=== PATIENT | female | born 1950 | race Caucasian/White ===

== ENCOUNTER → 2019-11-11 | Outpatient (CLI) | payer MEDICARE, SELFPAY | PROVIDERS: Family Provider Electrodiagnostic Medicine; Visit Provider Electrodiagnostic Medicine | DX: G47.33 Obstructive sleep apnea (adult) (pediatric) (principal) ==

== ENCOUNTER 2019-11-14 10:22 | Outpatient (RCR) | payer MEDICARE, SELFPAY | END 2019-11-15 00:01 | LOC: ONCMED 10:22 | PROVIDERS: Family Provider Electrodiagnostic Medicine; Visit Provider Nurse Practitioner Family | DX: C90.00 Multiple myeloma not having achieved remission (principal); F41.8 Other specified anxiety disorders; I10 Essential (primary) hypertension; M48.02 Spinal stenosis, cervical region; M48.061 Spinal stenosis, lumbar region without neurogenic claudication; M85.80 Other specified disorders of bone density and structure, unspecified site; Z79.01 Long term (current) use of anticoagulants; Z79.899 Other long term (current) drug therapy; Z92.3 Personal history of irradiation; Z86.711 Personal history of pulmonary embolism | CPT/HCPCS: 36415; 70450; 70490; 80053; 82306; 83883 ×2; 84155; 84165; 84443; 85025; 85651; 99214 ==

== ENCOUNTER 2019-11-30 09:00 | Outpatient (RCR) | payer MEDICARE, SELFPAY | END 2019-12-16 23:59 | disposition home or self-care (01) | LOC: WOUND 09:00 | PROVIDERS: Family Provider Electrodiagnostic Medicine; PCP Electrodiagnostic Medicine; Visit Provider Nurse Practitioner Family | DX: L59.8 Other specified disorders of the skin and subcutaneous tissue related to radiation (principal); Y84.2 Radiological procedure and radiotherapy as the cause of abnormal reaction of the patient, or of later complication, without mention of misadventure at the time of the procedure; I96 Gangrene, not elsewhere classified | CPT/HCPCS: 11042; 99214; G0463 ==

== ENCOUNTER 2019-12-05 06:14 | Outpatient (RCR) | payer MEDICARE, SELFPAY ==
[2019-11-21 09:07] LABS: Basophils # 0.2 10^3/uL (0.0-0.1); Basophils % 5.5 %; Eosinophils # 0.2 10^3/uL (0.0-0.8); Eosinophils % 4.7 %; Hematocrit 32.8 % (37.0-47.0); Hemoglobin 10.2 g/dL (11.5-15.3); Lymphocytes # 1.4 10^3/uL (0.8-4.8); Lymphocytes % 39.4 %; Mean Corpuscular HGB Conc 31.1 g/dL (30.0-36.0); Mean Corpuscular Hemoglobin 26.3 pg (28.0-34.0); Mean Corpuscular Volume 84.5 fL (81-99); Mean Platelet Volume 12.5 fL (7.4-10.4); Monocytes # 0.5 10^3/uL (0.2-0.9); Monocytes % 12.9 %; Neutrophils # 1.4 10^3/uL (1.8-7.7); Neutrophils % 37.2 %; Nucleated Red Blood Cells % 0 %; Platelet Count 286 10^3/cmm (130-400); Red Blood Count 3.88 10^6/uL (4.1-5.3); White Blood Count 3.6 10^3/uL (4.0-10.0)
[2019-11-21 09:30] LABS: Alanine Aminotransferase 12 U/L (0-33); Albumin Level 4.2 g/dL (3.5-5.2); Alkaline Phosphatase 104 IU/L (35-105); Anion Gap 14.4 (5-19); Aspartate Amino Transferase 17 U/L (0-32); Blood Urea Nitrogen 12 mg/dL (8-23); Calcium 9.1 mg/Dl (8.8-10.2); Carbon Dioxide 26 mmol/L (22-29); Chloride 104 mmol/L (98-107); Ferritin 16 ng/mL (15-150); Globulin 1.5 g/dL (1.3-4.6); Glomerular Filtration Rate 62.3 mL/min (90-130); Glucose 97 mg/dL (74-106); Iron 53 ug/dL (37-145); Lactate Dehydrogenase 83 U/L (135-214); Percent Saturation 17.2 % (20-50); Potassium 3.4 mmol/L (3.5-5.1); Sodium 141 mmol/L (136-145); Total Bilirubin 0.3 mg/dL (0.15-1.2); Total Iron Binding Capacity 308 mg/dL; Total Protein 5.7 g/dL (6.6-8.7); Unsaturated Iron Binding 255 ug/dL (112-347)
[2019-11-21 11:10] LABS: Immunoglobulin IGA 143 mg/dL (70-400); Immunoglobulin IGG 759 mg/dL (700-1600); Immunoglobulin IGM 30 mg/dL (40-230)
[2019-11-23 13:17] LABS: ABNORMAL PROTEIN BAND 1 0.2 g/dL (NONE DETECTED); ALBUMIN 3.1 g/dL (3.8-4.8); ALPHA 1 GLOBULIN 0.3 g/dL (0.2-0.3); ALPHA 2 GLOBULIN 0.7 g/dL (0.5-0.9); BETA 1 GLOBULIN 0.4 g/dL (0.4-0.6); BETA 2 GLOBULIN 0.3 g/dL (0.2-0.5); GAMMA GLOBULIN 0.7 g/dL (0.8-1.7); KAPPA LIGHT CHAIN, FREE, SERUM 49.4 mg/L (3.3-19.4); KAPPA/LAMBDA LIGHT CHAINS FREE 0.45 (0.26-1.65); LAMBDA LIGHT CHAIN, FREE, SERU 110.4 mg/L (5.7-26.3); PROTEIN, TOTAL 5.4 g/dL (6.1-8.1)
--- NOTE | 2019-11-28 10:50 | ONC FU_ITS ---
Dr. Rodriguez Patient Follow-Up Note Patient: Valentin Clark Unit #: [id number]: 1950 Dicatated By: Ruiz Rodriguez M.D.Date of Visit:Nov 28, 2019 Onc Med Follow-up/Prog Note Chief Complaint: Mulitple myeloma. 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 In March 2018 she had bumped her head at work and in the process of that she became aware of a small lump, though it was actually in a slightly different area. She then noticed that the lump was getting larger. Evaluation with head MRI on 06/07/2018 showed evidence of a right parietal occipital extra-axial neoplasm, felt to be most likely meningeal in origin. It was noted to exert mass effect on the right parietal and occipital lobes, but without associated midline shift or white matter parenchymal edema. The lesion was noted to invade through the calvarium and into the subcutaneous parietal occipital scalp soft tissues. The mass measured 5.7 x 3.5 x 6 cm. 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 The area of occlusion was noted to extend over approximately 4.3 cm. She was seen by Dr. Landry and subsequently referred for neurosurgery evaluation at [facility]. Initially they had considered possible surgical resection. Her further evaluation there apparently included laboratory findings which were suspicious for myeloma, and it was recommended that she have treatment with radiation. She was seen here for further management on 07/14/2018. She then returned to Dr. Landry, and on 07/20/2018 she underwent open biopsy/resection of the extracranial extent of the mass. 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 Her further evaluation included protein electrophoresis which showed an IgG lambda monoclonal protein in the serum quantitating at 0.48 g/dL. The serum free light chain assay showed elevated lambda light chain at 374.65 mg/L with decreased kappa/lambda ratio at 0.06. The 24-hour urine protein electrophoresis showed no monoclonal protein. There were no other areas of lytic bone involvement noted on her skeletal survey. Bone marrow aspiration/biopsy on 07/30/2018 showed a monotypic plasma cell population, but it comprised only 2% of the total cellularity. A FISH panel for myeloma was unrevealing, and the standard chromosome analysis was normal. She was referred to Dr. Kaur, and she began radiation to the lesion on 07/30/2018. She completed treatment on 09/02/2018 to a total dose of 5,000 cGy. She had evaluation with CT pulmonary angiogram on 09/14/2018. It showed moderate bilateral pulmonary embolic burden. She began on anticoagulation with apixaban. During her subsequent follow-up she continued to have an open wound at the site of the plasmacytoma in the parietal-occipital scalp region. As of her follow-up visit on 10/19/2018 her M protein was stable 0.37 g/dL. In the absence of any evidence of symptomatic myeloma, she had otherwise just continued on observation/expectant management. However, due to her persistent scalp wound she had a repeat brain MRI on 01/11/2019. It showed evidence of residual neoplastic process at the resection site. There was associated dural involvement but with improved signal characteristics and decreased enhancement compared to the study from September 2018. She was seen for a follow-up visit on 01/20/2019. In view of the MRI findings, she had further evaluation with PET/CT on 02/03/2019. It showed increase in size and expansile hypermetabolic lesion within the left ilium with extension of hypermetabolic tumor into the adjacent left iliac muscle. There was a new hypermetabolic lytic process within the right S1/S2 region. A large lytic mass within the posterior calvarium did not appear to have active hypermetabolism. Also noted, though, was a hypermetabolic lesion within the medullary canal of the distal left femoral diametaphysis and an additional hypermetabolic focus in the anterior cortex of the distal right femur concerning for additional areas of myeloma. In the setting of obvious progression of her myeloma, she was recommended to begin a trial of therapy with Velcade/Revlimid/dexamethasone. Her other medical illnesses include hypertension and degenerative arthritis/degenerative disease of the spine. She has associated cervical and lumbar spinal stenosis. She has a history of endometriosis, and she has anxiety/depression. She is a nonsmoker. INTERIM HISTORY: She began cycle 1 of VRd on 02/23/2019. At that time she also received an infusion of IV Zometa for the lytic bone involvement. At that time, there was a slight increase in her baseline creatinine level to 1.2 mg/dL, and did opt to reduce her Revlimid dosage because of that. She experienced significant toxicity following her day 1 treatment, mainly having become listless and out of it over the next 4-5 days. She also lost her appetite. Her follow-up lab studies showed a drop in her calcium from baseline 10.3 mg/dL to 6.5 mg/dL with albumin 3.5 g/dL. With that finding, I did opt to hold her further Velcade, but she continued Revlimid and dexamethasone. As of 03/09/2019 she restarted treatment with Velcade at 1.3 mg/m??? weekly with Revlimid reduced to 15 mg daily on a 21/28 day schedule and the dexamethasone dosage reduced to 20 mg weekly. As of her day 15 visit, she was tolerating the treatment well. At that time she received the full dosage of Velcade, and she continued Revlimid 15 mg daily for 7 more days. She had subsequently developed diarrhea, and at her followup visit on 04/07/2019 her treatment was put on hold. She eventually continued with cycle 3 on 05/05/2019 with the Revlimid dosage further reduced to 10 mg daily on a 21/28 day schedule and with the Velcade and dexamethasone dosed weekly. Her repeat SPEP at that time showed residual M protein quantitating at 0.3 g/dL. The free light chain assay showed kappa light chain 100 mg/L, lambda light chain 122 mg/L, and kappa/lambda ratio 0.82. Her treatment was put on hold again at day 8 due to worsening neuropathy. She subsequently was able to continue the Revlimid and dexamethasone, but the Velcade remained on hold. Her repeat protein electrophoresis on 06/09/2019 showed stable M protein at 0.3 g/dL. The serum free light chain assay showed normal kappa/lambda ratio at 0.84. She was seen for a follow-up visit on 06/21/2019. At that point she appeared stable clinically. Her blood counts were adequate, and she continued with her 4th cycle of treatment. Her repeat protein electrophoresis on 07/13/2019 showed residual M protein quantitating at 0.2 g/dL. The free light chain assay showed elevated kappa light chain at 31.0 mg/L and elevated lambda light chain at 33.0 mg/L with normal kappa/lambda ratio at 0.94. Her 24-hour urine protein electrophoresis showed no detectable monoclonal protein. She was seen for a follow-up visit on 07/19/2019. At that point she complained of increased fatigue and excessive somnolence, and I did opt to put her treatment on hold. A subsequent restaging PET/CT showed no FDG avid sites of involvement. Her repeat head MRI on 08/10/2019 showed no evidence of recurrent or progressive disease. With those findings, I opted to transition her treatment to maintenance Revlimid at 5 mg daily, which she started following her visit on 08/17/2019. Her further laboratory studies on 09/22/2019 also showed a low B12 level at 189 pg/mL, and she subsequently started B12 replacement therapy. A recent sleep study showed moderate obstructive sleep apnea. She is scheduled to come in for a titration study. She is seen for a scheduled visit. She has been feeling a little better generally. Since she started the B12 injections she's not sleeping quite as much, though she still has her days . Her activity remains very limited. She just occasionally is able to do light work, and she usually pays for it the next day. ECOG score is 2. She says she never has appetite. She has lost some weight. She has not had fever or night sweats, but she occasionally does have chills. She has had no mouth sores. She does not complain of shortness of breath or cough. She has not had chest pain. She has started having fluttering in heart racing during the night again. She has no GI complaints. She has frequent urination with urgency and some incontinence. She is having some pain in her neck and in her lower back. She has arthritis in her hands. She does not complain of headache. She says her balance is terrible. Her numbness and tingling is going away, but recently she has been having some muscle cramping in her hands. Medications: Acetaminophen 1 Tablet (of 650 mg) Oral PRN, Biotin Plus Keratin 1 Tablet (of 70322 mcg) Oral daily, Bisacodyl 1 Tablet (of 5 mg) Tablet, enteric coated Oral PRN, Calcium Citrate + D 1 Capsule (of 600-800 mg - Units) Tablet Oral daily, Eliquis 1 Tablet (of 5 mg) Oral b.i.d., Essiac Tonic 1 Capsule Oral b.i.d., FLUoxetine HCl 1 Capsule (of 30 mg) Oral daily, Furosemide 1 Tablet (of 40 mg) Oral daily on Every Other Day, GoodSense Stimulant Laxative 2 Tablet (of 8.6-50 mg) Oral t.i.d. PRN, Loratadine 1 Tablet (of 10 mg) Oral daily PRN, LORazepam 1 Tablet (of 0.5 mg) Oral b.i.d., Pantoprazole Sodium 1 Tablet (of 40 mg) Tablet, enteric coated Oral b.i.d., Potassium Chloride ER 1 Tablet (of 20 meq) Tablet, controlled release Oral b.i.d., Zoe 1 patch(es) Patch Topical daily, Probiotic Acidophilus 2 Capsule Tablet Oral daily, Regranex 1 (0.01 %) Gel (jelly) Topical daily PRN, Revlimid 1 Tablet (of 5 mg) Capsule Oral daily, Sulfamethoxazole-Trimethoprim (800-160 mg) Tablet Oral Take as Directed, Ventolin HFA 1 (108 (90 base) mcg/act) Aerosol, solution Inhalation PRN, Vitamin B12 1 Tablet (of 2500 mg) Tablet, controlled release Oral daily, Vitamin D3 1 Tablet (of 2000 Units) Oral b.i.d. Allergies: BusPIRone HCl, Codeine and Related, Levaquin, and Morphine Derivatives. Review of Systems: Constitutional - Her energy is starting to potato picker, but she still has limited activity and she just occasionally does light work at home. Her appetite is not very good. She has lost weight. She had chills a couple weeks ago. No fever or night sweats. ECOG score is 2, ENMT - No sinus congestion/drainage. No mouth sores. No sore throat or difficulty swallowing, Hematologic/Lymphatic - No abnormal bruising or bleeding, Respiratory - No shortness of breath. No cough. No pleuritic pain or hemoptysis, Cardiovascular - No angina pain. She is having fluttering and heart racing at night that wakes her up, Gastrointestinal - No nausea or vomiting. No heartburn or acid reflux. She is managing her constipation well with stool softeners. No blood in the stool or black stools, Genitourinary (F) - No dysuria or hematuria. She has urinary frequency and urgency. She has some incontinence, Musculoskeletal - She has pain in her neck and lower back. She is having cramping in her legs and feet. She also has arthritis in her hands, Integumentary - No skin complications, Neurologic - No headache or dizziness. Her balance is bad and she staggers when she walks. No numbness/paresthesias or other focal neurologic symptoms, Psychiatric - She does get anxious quite a bit, but she feels that her depression is better. No insomnia. Vital Signs: Performed on Nov 28, 2019 09:07 Height - 63.50 in Weight - 214.8 lbs (LOW) BSA - 2.00 sq.m BMI - 37.45 (HIGH) Temperature - 97.7 F (LOW) Pulse - 68 /min Respiration - 17 /min BP - 121/86 mm(hg) O2 Sat - 98 % Pain - 4 Physical Examination: Constitutional - She looks pretty good generally, Eyes - Sclerae nonicteric. Conjunctivae clear, ENMT - No lesions noted in the oral cavity, Hematologic/Lymphatic - No cervical, clavicular, or axillary adenopathy, Respiratory - Lungs are clear with good air movement bilaterally, Cardiovascular - Heart rhythm is regular. There is a II/ systolic murmur. There is no gallop or rub noted, Abdomen - Mildly distended but soft. Liver and spleen are not enlarged. There is no abdominal mass or ascites noted and there is no inguinal adenopathy, Extremities - No edema, Integumentary - The scalp wound is still open but it looks clean, Neurologic - No focal neurologic deficits noted. Lab/Imaging: Test performed on Nov 21, 2019 08:35 Ferritin 16 ng/mL % Iron Saturation 17.2 % Glucose 97 mg/dL LDH, Total 83 IU/L BUN 12 mg/dL Iron, Total 53 mcg/dL Creatinine 0.9 mg/dL TIBC 308 mcg/dL Cr Clearance (Est) 92.36 mL/min Sodium 141 mmol/L Potassium 3.4 mmol/L Chloride 104 mmol/L CO2 26 mmol/L Calcium 9.1 mg/dL Protein, Total 5.7 g/dL Albumin 4.2 g/dL Globulin 1.5 g/dL Bilirubin, Total 0.3 mg/dL Alkaline Phosphatase 104 IU/L AST (SGOT) 17 IU/L ALT (SGPT) 12 IU/L WBC 3.6 10^9/L RBC 3.88 10^12/L HGB 10.2 g/dL HCT 32.8 % MCV 84.5 fl MCH 26.3 pg MCHC 31.1 g/dL RDW 18.0 % Platelet Count 286 10^9/L MPV 12.5 fL Neutrophils (Gran) 1.4 10^9/L Lymphocytes 1.4 10^9/L Monocytes 0.5 10^9/L Eosinophils 0.2 10^9/L Basophils 0.2 10^9/L Manual Lymphocytes 39.4 % Manual Monocytes 12.9 % Manual Eosinophils 4.7 % Manual Basophils 5.5 % NRBCs 0.0 /100 WBC IGA 143 mg/dL IGG 759 mg/dL IGM 30 mg/dL Impression: 1. 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 She underwent resection/open biopsy of the extracranial portion of the mass on 07/20/2018. 2. She then underwent radiation, completed on 09/02/2018 to a total dose of 5000 cGy. 3. She has persistent open wound at the biopsy site. 4. She had associated IgG lambda monoclonal protein in the serum and 2% monoclonal plasma cells in the bone marrow, consistent with underlying myeloma. Initially it appeared to otherwise not be symptomatic. 5. She was found to have pulmonary emboli by CT pulmonary angiogram on 09/14/2018. She began anticoagulation with apixaban. Her other medical illnesses include: 6. Degenerative arthritis and degenerative disease of the spine with associated cervical and lumbar spinal stenosis. 7. Hypertension. 8. Endometriosis. 9. Anxiety/depression. During subsequent followup she had increasing pain in the left hip/buttock area. Her repeat protein electrophoresis studies showed only a slight increase in her M protein, but her repeat PET/CT on 02/03/2019 showed significant progression of lytic bone involvement in the left ilium. There was also possible involvement in the distal right femur. The area of lytic involvement in the calvarium was not metabolically active. On 02/23/2019 she began cycle 1 of Velcade/Revlimid/dexamethasone. She also was given an infusion of Zometa for the lytic bone involvement. Her treatment was complicated by [employer] toxicity and hypocalcemia. Her Velcade was put on hold. She stopped the Revlimid and dexamethasone as of 03/02/2019. At that point she was still having significant pain associated with the lytic bone involvement in the left ileum. During subsequent follow-up, the hypocalcemia improved. As of 03/09/2019 she was able to restart treatment with dose reductions in the Revlimid and dexamethasone. She had remained mildly anemic, but that appeared to be due to iron deficiency. As of her cycle 2 day 15 visit, she appeared to be doing well, and she continued to her treatment as scheduled. Subsequent to that visit, she developed severe diarrhea, and her treatment was put on hold. She continued with cycle 3 on 05/05/2019. She was given a further reduction in the Revlimid dosage to 10 mg daily on a day schedue with the Velcade and dexamethasone dosed weekly. Her treatment was put on hold at day 8 due to worsening neuropathy. She subsequently was able to continue treatment with Revlimid/dexamethasone, but the Velcade remained on hold. She then continued with cycle 4 on 06/21/2019. As of her follow-up visit on 07/19/2019 her treatment was put on hold due to multiple complaints, the most significant being increased fatigue and excessive somnolence. A subsequent restaging PET/CT showed no active sites of involvement. She continued, though, to have severe fatigue/somnolence despite adjustments in her medication regimen. She also continued to have significant musculoskeletal pain, and she had a persistent open wound in the area of the vertex of her scalp. Her repeat head MRI on 08/10/2019 showed no evidence of recurrent or progressive disease. With those findings, her treatment was transitioned to maintenance Revlimid at 5 mg daily, which she started following her visit on 08/17/2019. She has been tolerating the maintenance Revlimid with acceptable toxicity, and thus far there has been no obvious progression of the myeloma, as her current M protein is stable at 0.2 g/dL. During this time she was found to have B12 deficiency, and she has been showing some improvement with B12 replacement. More recently, she was found to have obstructive sleep apnea, and she is scheduled to have a titration study. I assume she will then be starting on CPAP. Her current laboratory studies show persistent mild anemia, and her transferrin saturation and ferritin levels are consistent with iron deficiency despite the fact that she has been on oral iron supplementation. Plan: She will continue maintenance Revlimid at 5 mg daily. As she is not responding to oral iron supplementation, she will be given parenteral iron replacement with Injectafer, subject to verification of insurance coverage. She will be scheduled for a 1-month interval follow-up visit. Signed By: Ruiz Rodriguez M.D. <<Signature on File>>
[2019-11-28] MEDS: denosumab 120 mg SDV SUBCUT (11:10)
== END 2019-12-05 23:59 | disposition home or self-care (01) ==
LOC: ONCMED 06:14
PROVIDERS: Nurse Practitioner; Family Provider Electrodiagnostic Medicine; PCP Electrodiagnostic Medicine; Visit Provider Internal Medicine Medical Oncology
DX: C90.00 Multiple myeloma not having achieved remission (principal); D50.9 Iron deficiency anemia, unspecified; Z79.899 Other long term (current) drug therapy; G47.33 Obstructive sleep apnea (adult) (pediatric); M48.061 Spinal stenosis, lumbar region without neurogenic claudication; I10 Essential (primary) hypertension; F41.8 Other specified anxiety disorders; Z79.01 Long term (current) use of anticoagulants; Z92.3 Personal history of irradiation; Z86.711 Personal history of pulmonary embolism
CPT/HCPCS: 80053; 82728; 82784; 83540; 83550; 83615; 83883; 84155; 84156; 84165; 84166; 85025; 96365; 96372; 99214; J0897; J1439

== ENCOUNTER 2019-12-06 12:22 | Observation (INO) | payer MEDICARE, SELFPAY ==
[2019-12-06] VITALS (8 sets, daily range): BP systolic 105–138; BP diastolic 56–71; PULSE 56–74; RESP 14–20; TEMP 36.6–36.8; O2SAT 93–98; BMI 37.7
--- NOTE | 2019-12-06 13:22 | ED_ITS ---
Entered by [id number], acting as scribe for Michoacano Osborn DO Dec 06, 2019 12:22 HPI - General Adult General: Chief complaint: General Medical Stated complaint: Dr Jimenes sent- Numbness in hands Time Seen by Provider: 12/06/19 14:18 [facility] ED PFSH: Statuses (acute, chronic, etc) shown below reflect problem list status as previously entered and may not be historically accurate Medical History Depression (Acute) FHx: cholecystectomy (Acute) Gastroesophageal reflux (Acute) Hypertension (Acute) MRSA (methicillin resistant staph aureus) culture positive (Acute) Multiple myeloma (Acute) Plasmacytoma (Acute) Pulmonary embolism (Acute) Surgical History History of appendectomy (Acute) Hx of tonsillectomy (Acute) Social History Smoking and tobacco status: never smoked Course Vital Signs: Vital signs: Vital Signs Temperature 98 F 12/06/19 12:28 Pulse Rate 74 12/06/19 12:28 Respiratory Rate 20 H 12/06/19 12:28 Blood Pressure 111/65 12/06/19 12:28 Pulse Oximetry 98 12/06/19 12:28 MDM - General Adult Lab Data: Labs: Lab Results 12/06/19 12/06/19 Range/Units 13:45 13:45 WBC 4.5 (4.0-10.0) 10^3/ uL RBC 3.73 L (4.1-5.3) 10^6/u L Hgb 10.1 L (11.5-15.3) g/dL Hct 32.4 L (37.0-47.0) % MCV 86.9 (81-99) fL MCH 27.1 L (28.0-34.0) pg MCHC 31.2 (30.0-36.0) g/dL RDW 19.7 H (12.1-15.1) % Plt Count 209 (130-400) 10^3/c mm MPV 12.2 H (7.4-10.4) fL Neut % (Auto) 54.2 % Lymph % (Auto) 24.9 % Hayes % (Auto) 14.3 % Eos % (Auto) 2.0 % Baso % (Auto) 4.4 % Neut # (Auto) 2.5 (1.8-7.7) 10^3/u L Lymph # (Auto) 1.1 (0.8-4.8) 10^3/u L Hayes # (Auto) 0.7 (0.2-0.9) 10^3/u L Eos # (Auto) 0.1 (0.0-0.8) 10^3/u L Baso # (Auto) 0.2 H (0.0-0.1) 10^3/u L Nucleated RBC % (a uto) 0 % Nucleated RBCs # 0.0 /100WBC Sodium 139 (136-145) mmol/L Potassium 2.8 L* (3.5-5.1) mmol/L Chloride 103 (98-107) mmol/L Carbon Dioxide 24 (22-29) mmol/L Anion Gap 14.8 (5-19) BUN 8 (8-23) mg/dL Creatinine 0.9 (0.5-0.9) mg/dL GFR Calculation 62.3 L (90-130) mL/min Glucose 133 H (74-106) mg/dL Calcium 5.4 L* (8.8-10.2) mg/Dl Total Bilirubin 0.2 (0.15-1.2) mg/dL AST 21 (0-32) U/L ALT 12 (0-33) U/L Alkaline Phosphata se 103 (35-105) IU/L Total Protein 5.7 L (6.6-8.7) g/dL Albumin 2.9 L (3.5-5.2) g/dL Globulin 2.8 (1.3-4.6) g/dL Discharge Plan Discharge Patient Disposition: Admitted As Inpatient Clinical Impression: Acute hypokalemia, Hypocalcemia, Paresthesia of both feet, Paresthesia of both hands Condition: Stable Referrals: Luis Manuel Jimenes DO [Primary Care Provider] - Coding Level of Care Code ED Time Clock Mechanic for Chg Fwd The documentation recorded by the scribe, [id number], accurately reflects the service I personally performed and the decisions made by , Michoacano Osborn DO Jan 21, 2020 12:22
--- NOTE | 2019-12-06 13:29 | ED_ITS ---
Entered by Rylie Cox, acting as scribe for Michoacano Osborn DO Dec 06, 2019 12:22 HPI - General Adult General: Chief complaint: General Medical Stated complaint: Dr Jimenes sent- Numbness in hands Time Seen by Provider: 12/06/19 14:18 History of Present Illness: HPI narrative: 69 yo female presents with numbness in her hands. Pt states that she started feeling bad yesterday. Pt states that she received an iron infusion yesterday, she regularly receives b12 infusions as well. pt states that she has cramping in her hands and her right fingers were curled to the inside. Pt states that she has struggled with it all morning. Pt states that she has right leg cramping. Pt states that she has a loss of appetite. Pt states that when she eats something it doesn't taste right. Pt states that she doesn't drink water very often. Onset (ago): day(s) Associated symptoms: Reports headache(s) and nausea; Deny chest pain, dyspnea, malaise, rash, palpitations or vomiting Review of Systems Const: Denies: fever, chills, body aches, change in appetite, change in weight, fatigue or malaise Eyes: Denies: change in vision, blurry vision, blind spots, photophobia or eye discharge ENMT: Denies: throat pain, uvular edema, enlarged tonsils, painful swallowing, hoarseness or mouth pain Card: Denies: chest pain, palpitations, irregular heart rhythm, edema or swelling of feet/ankles Resp: Denies: shortness of breath, productive cough, non-productive cough, wheezing or stridor GI: Reports: nausea; Denies: abdominal pain or vomiting : Denies: flank pain, difficulty urinating, painful urination, urinary urgency or urinary hesitancy Musc: Reports: extremity pain and muscle cramps; Denies: neck pain, back pain, extremity swelling or joint pain Skin/Breast: Denies: rash, itching, redness or sensitivity to light Neuro: Reports: headache; Denies: numbness in extremities, weakness in extremities or lack of coordination Psych: Denies: anxiety, depression, mood swings, panic attacks, sleeping less or sleeping more PFSH ED PFSH: Statuses (acute, chronic, etc) shown below reflect problem list status as previously entered and may not be historically accurate Medical History Depression (Acute) FHx: cholecystectomy (Acute) Gastroesophageal reflux (Acute) Hypertension (Acute) MRSA (methicillin resistant staph aureus) culture positive (Acute) Multiple myeloma (Acute) Plasmacytoma (Acute) Pulmonary embolism (Acute) Surgical History History of appendectomy (Acute) Hx of tonsillectomy (Acute) Social History Smoking and tobacco status: never smoked Physical Exam Const: COMMON NORMALS: no apparent distress, oriented x3 and alert HENMT: COMMON NORMALS: normocephalic, head/scalp atraumatic, hearing grossly normal bilaterally, external ears normal, EAC's normal, TM's normal bilaterally, external nose normal, nasal mucous membranes and turbinates normal, moist oral mucous membranes, oropharynx normal, dentition normal and gingiva normal HEAD & SCALP: normocephalic and atraumatic NOSE: external nose normal and nasal mucous membranes and turbinates normal EXTERNAL EAR: Yes external ears normal EXTERNAL AUDITORY CANAL: EAC's normal TYMPANIC MEMBRANE: TM's normal bilaterally THROAT: no uvular edema Eye: COMMON NORMALS: PERRL, EOMs intact bilaterally, conjunctivae normal, no scleral icterus, no papilledema, normal visual marinelli by confrontation and fundi normal bilaterally CONJUNCTIVA: Yes conjunctivae normal PUPIL: Yes PERRL DIRECT OPHTHALMOSCOPY: Yes no papilledema and Yes fundi normal bilaterally Neck/C-Spine: COMMON NORMALS: full ROM, no lymphadenopathy, supple, no meningeal signs, no JVD, thyroid normal and no carotid bruits THYROID: thyroid normal Chest: COMMONS NORMALS: inspection of chest normal and palpation of chest normal Resp: COMMON NORMALS: normal respiratory effort, no retractions, no use of accessory muscles, clear to auscultation bilaterally and percussion normal AUSCULTATION: clear to auscultation bilaterally PERCUSSION: percussion normal Cardio: COMMON NORMALS: no JVD, regular rate, regular rhythm, S1 normal heart sound, S2 normal heart sound, no gallops, no clicks, no murmurs, no rub and per ipheral pulses 2+ throughout RATE: regular rate RHYTHM: regular rhythm HEART SOUNDS: S1 normal and S2 normal PERIPHERAL PULSES: pulses 2+ throughout GI: COMMON NORMALS: normal to inspection, nondistended, normoactive bowel sounds, soft to palpation, non-tender, no hepatosplenomegaly, no masses and no bruits PALPATION: Yes soft and Yes no hepatosplenomegaly : COMMON NORMALS: Yes no CVA tenderness and Yes external appearance normal BLADDER/KIDNEY EXAM: Yes no CVA tenderness Back/Pelvis: COMMON NORMALS: no CVA tenderness, thoracic and lumbar spine nor mal to inspection, no thoracic nor lumbar tenderness, thoraco-lumbar ROM normal and straight leg raise negative bilaterally Extremity: COMMON NORMALS: normal to inspection, full ROM, normal capillary refill, no joint enlargement, no clubbing, cyanosis or edema, no calf tenderness and no pedal edema Neuro: COMMON NORMALS: oriented x3 SENSORIUM/ORIENTATION: Yes alert MENINGEAL SIGNS: Yes no meningeal signs Skin: COMMON NORMALS: no rashes or lesions noted, no wounds, skin turgor normal, no jaundice, no petechiae and no mottling GENERAL SKIN EXAM: no rashes or lesions noted and turgor normal Course Vital Signs: Vital signs: Vital Signs Temperature 98 F 12/06/19 12:28 Pulse Rate 74 12/06/19 12:28 Respiratory Rate 20 H 12/06/19 12:28 Blood Pressure 111/65 12/06/19 12:28 Pulse Oximetry 98 12/06/19 12:28 [facility] - General Adult Lab Data: Labs: Lab Results 12/06/19 12/06/19 Range/Units 13:45 13:45 WBC 4.5 (4.0-10.0) 10^3/ uL RBC 3.73 L (4.1-5.3) 10^6/u L Hgb 10.1 L (11.5-15.3) g/dL Hct 32.4 L (37.0-47.0) % MCV 86.9 (81-99) fL MCH 27.1 L (28.0-34.0) pg MCHC 31.2 (30.0-36.0) g/dL RDW 19.7 H (12.1-15.1) % Plt Count 209 (130-400) 10^3/c mm MPV 12.2 H (7.4-10.4) fL Neut % (Auto) 54.2 % Lymph % (Auto) 24.9 % [place] % (Auto) 14.3 % Eos % (Auto) 2.0 % Baso % (Auto) 4.4 % Neut # (Auto) 2.5 (1.8-7.7) 10^3/u L Lymph # (Auto) 1.1 (0.8-4.8) 10^3/u L [place] # (Auto) 0.7 (0.2-0.9) 10^3/u L Eos # (Auto) 0.1 (0.0-0.8) 10^3/u L Baso # (Auto) 0.2 H (0.0-0.1) 10^3/u L Nucleated RBC % (a uto) 0 % Nucleated RBCs # 0.0 /100WBC Sodium 139 (136-145) mmol/L Potassium 2.8 L* (3.5-5.1) mmol/L Chloride 103 (98-107) mmol/L Carbon Dioxide 24 (22-29) mmol/L Anion Gap 14.8 (5-19) BUN 8 (8-23) mg/dL Creatinine 0.9 (0.5-0.9) mg/dL GFR Calculation 62.3 L (90-130) mL/min Glucose 133 H (74-106) mg/dL Calcium 5.4 L* (8.8-10.2) mg/Dl Total Bilirubin 0.2 (0.15-1.2) mg/dL AST 21 (0-32) U/L ALT 12 (0-33) U/L Alkaline Phosphata se 103 (35-105) IU/L Total Protein 5.7 L (6.6-8.7) g/dL Albumin 2.9 L (3.5-5.2) g/dL Globulin 2.8 (1.3-4.6) g/dL Discharge Plan Discharge Patient Disposition: Admitted As Inpatient Clinical Impression: Acute hypokalemia, Hypocalcemia, Paresthesia of both feet, Paresthesia of both hands Condition: Stable Referrals: Luis Manuel Jimenes DO [Primary Care Provider] - Coding Level of Care Code ED Risk Management Intern for [facility] Fwd Exam Problem Focused The documentation recorded by the Kenny martino Kialy, accurately reflects the service I personally performed and the decisions made by me, Michoacano Osborn, DO Dec 06, 2019 12:22
--- NOTE | 2019-12-06 13:38 | PC.NURSE ---
PHYSICAL ASSESSMENT GENERAL / NEURO / PSYCH: Alert. Oriented X 4. Reports feeling strange (unable to elaborate) today. She had difficulty making a fist with the right hand earlier today. This is now resolved. NIHSS: Zero GCS:15 HEENT: Mucous membranes are pink. RESPIRATORY: Respiration not labored. Breath sounds within normal limits. GI / : Abdomen soft and non-tender. ( Bowel sounds within normal limits. Denies nausea or vomiting. Denies urinary or bowel elimination problems. SKIN: Skin is warm and dry
[2019-12-06 13:51] LABS: Basophils # 0.2 10^3/uL (0.0-0.1); Basophils % 4.4 %; Eosinophils # 0.1 10^3/uL (0.0-0.8); Hematocrit 32.4 % (37.0-47.0); Hemoglobin 10.1 g/dL (11.5-15.3); Lymphocytes # 1.1 10^3/uL (0.8-4.8); Lymphocytes % 24.9 %; Mean Corpuscular HGB Conc 31.2 g/dL (30.0-36.0); Mean Corpuscular Hemoglobin 27.1 pg (28.0-34.0); Mean Corpuscular Volume 86.9 fL (81-99); Mean Platelet Volume 12.2 fL (7.4-10.4); Monocytes # 0.7 10^3/uL (0.2-0.9); Monocytes % 14.3 %; Neutrophils # 2.5 10^3/uL (1.8-7.7); Neutrophils % 54.2 %; Nucleated Red Blood Cells % 0 %; Platelet Count 209 10^3/cmm (130-400); Red Blood Count 3.73 10^6/uL (4.1-5.3); Red Cell Distribution Width 19.7 % (12.1-15.1); White Blood Count 4.5 10^3/uL (4.0-10.0)
[2019-12-06 14:11] LABS: Alanine Aminotransferase 12 U/L (0-33); Albumin Level 2.9 g/dL (3.5-5.2); Alkaline Phosphatase 103 IU/L (35-105); Anion Gap 14.8 (5-19); Aspartate Amino Transferase 21 U/L (0-32); Blood Urea Nitrogen 8 mg/dL (8-23); Carbon Dioxide 24 mmol/L (22-29); Chloride 103 mmol/L (98-107); Globulin 2.8 g/dL (1.3-4.6); Glomerular Filtration Rate 62.3 mL/min (90-130); Glucose 133 mg/dL (74-106); Sodium 139 mmol/L (136-145); Total Bilirubin 0.2 mg/dL (0.15-1.2); Total Protein 5.7 g/dL (6.6-8.7)
--- NOTE | 2019-12-06 14:21 | CT_ITS ---
WS: [id number] CT HEAD NONCONTRAST HISTORY: numbness TECHNIQUE: Contiguous axial imaging performed through the brain in 2.5 mm imaging. Bone and soft tiss ue windows. Sagittal and coronal reformats reviewed. All CT scans at [facility] use at ast one of these dose optimization techniques: automated exposure control; mA and/or kV adjustment pe r patient size (includes targeted exams where dose is matched to clinical indication); or iterative r econstruction. DLP: 864.47 mGy.cm COMPARISON: 11/14/2019 No acute intracranial hemorrhage, midline shift or mass effect. Mild atrophy and chronic ischemic disease. 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 Ventricles: Normal size with no hydrocephalus. No inferior displacement of cerebellar tonsils. Paranasal sinuses: Small polyp or mucoperiosteal thickening in the RIGHT sphenoid sinus. Mastoid air cells: Well pneumatized. Calvarium and scalp: Destructive permeative process involving the RIGHT posterior parieto-occipital b one. Extends over a width of 5.2 cm. There is involvement and destruction of both the inner and outer tables of the skull with soft tissue. Very similar in appearance to the prior study. CT/CT head wo con* [id number] IMPRESSION: 1. No significant progression of the destructive permeative lesion involving t he RIGHT parietal occipital bone with soft tissue and extension to the dura. Si milar to 11/14/2019. 2. Large remote LEFT cerebellar infarct. 3. No acute intracranial hemorrhage or edema.
--- NOTE | 2019-12-06 14:21 | CT_ITS ---
WS: [id number] CT CERVICAL SPINE HISTORY: numbness TECHNIQUE: Contiguous 2.5 mm axial imaging performed through the entire cervical spine. Sagittal and coronal reformats also performed. All CT scans at [facility] use at least one of these do se optimization techniques: automated exposure control; mA and/or kV adjustment per patient size (inc ludes targeted exams where dose is matched to clinical indication); or iterative reconstruction. DLP: 639.95 mGy.cm COMPARISON: 11/14/2019 Normal cervical alignment. Craniocervical junction is normal. No osteoblastic or osteolytic bone dise ase. Large anterior bridging osteophytes from C2 through C3 and C4. Partial fusion across the C5-6 di sc space and large clawlike osteophyte from C6 to C7. No fractures. C2-C3: Mild osteophytic ridging with mild LEFT foraminal stenosis. C3-C4: Mild osteophytic ridging with mild bilateral foraminal stenosis. C4-C5: Mild osteophytic ridging and moderate foraminal stenosis. C5-C6: Osteophytic ridging with mild bilateral foraminal stenosis. C6-C7: Central osteophyte with encroachment upon the ventral thecal sac. Mild central and foraminal s tenosis. C7-T1: Central osteophyte with encroachment upon the ventral thecal sac. Mild central and foraminal s tenosis. No new area of lytic disease. CT/CT cervical spin wo con* [id number] IMPRESSION: 1. No destructive lytic bone disease. 2. Multilevel stenoses and degenerative changes throughout the cervical spine. Moderate foraminal stenosis at C4-5. Mild encroachment upon the ventral thecal sac by osteophyte disease at C6-7 and C7-T1.
[2019-12-06 14:30] LABS: Potassium 2.8 mmol/L (3.5-5.1)
[2019-12-06 14:31] LABS: Calcium 5.4 mg/Dl (8.8-10.2)
[2019-12-06 15:13] LABS: Phosphorus 1.2 mg/dL (2.5-4.5)
[2019-12-06] MEDS: lidocaine 1% INJ 20 mL XX (15:33)
[2019-12-06] MEDS: potassium chloride premix 40 MEQ/100 ML PREMIX 15 MEQ IV (15:33)
--- NOTE | 2019-12-06 15:43 | PC.NURSE ---
I AGREE WITH THIS ASSESSMENT
--- NOTE | 2019-12-06 15:43 | W.ED.GENADLT ---
HPI - General Adult General: Chief complaint: General Medical Stated complaint: Dr Jimenes sent- Numbness in hands Time Seen by Provider: 12/06/19 14:18 History of Present Illness: Associated symptoms: Reports headache(s) and nausea; Deny chest pain, dyspnea, malaise, rash, palpitations or vomiting Review of Systems Const: Denies: fever, chills, body aches, change in appetite, change in weight, fatigue or malaise Eyes: Denies: change in vision, blurry vision, blind spots, photophobia or eye discharge ENMT: Denies: throat pain, uvular edema, enlarged tonsils, painful swallowing, hoarseness or mouth pain Card: Denies: chest pain, palpitations, irregular heart rhythm, edema or swelling of feet/ankles Resp: Denies: shortness of breath, productive cough, non-productive cough, wheezing or stridor GI: Reports: nausea; Denies: abdominal pain or vomiting : Denies: flank pain, difficulty urinating, painful urination, urinary urgency or urinary hesitancy Musc: Reports: extremity pain and muscle cramps; Denies: neck pain, back pain, extremity swelling or joint pain Skin/Breast: Denies: rash, itching, redness or sensitivity to light Neuro: Reports: headache; Denies: numbness in extremities, weakness in extremities or lack of coordination Psych: Denies: anxiety, depression, mood swings, panic attacks, sleeping less or sleeping more PFSH ED PFSH: Statuses (acute, chronic, etc) shown below reflect problem list status as previously entered and may not be historically accurate Medical History Depression (Acute) FHx: cholecystectomy (Acute) Gastroesophageal reflux (Acute) Hypertension (Acute) MRSA (methicillin resistant staph aureus) culture positive (Acute) Multiple myeloma (Acute) Plasmacytoma (Acute) Pulmonary embolism (Acute) Surgical History History of appendectomy (Acute) Hx of tonsillectomy (Acute) Social History Smoking and tobacco status: never smoked Physical Exam Const: COMMON NORMALS: no apparent distress, oriented x3 and alert HENMT: COMMON NORMALS: normocephalic, head/scalp atraumatic, hearing grossly normal bilaterally, external ears normal, EAC's normal, TM's normal bilaterally, external nose normal, nasal mucous membranes and turbinates normal, moist oral mucous membranes, oropharynx normal, dentition normal and gingiva normal HEAD & SCALP: normocephalic and atraumatic NOSE: external nose normal and nasal mucous membranes and turbinates normal EXTERNAL EAR: Yes external ears normal EXTERNAL AUDITORY CANAL: EAC's normal TYMPANIC MEMBRANE: TM's normal bilaterally THROAT: no uvular edema Eye: COMMON NORMALS: PERRL, EOMs intact bilaterally, conjunctivae normal, no scleral icterus, no papilledema, normal visual marinelli by confrontation and fundi normal bilaterally CONJUNCTIVA: Yes conjunctivae normal PUPIL: Yes PERRL DIRECT OPHTHALMOSCOPY: Yes no papilledema and Yes fundi normal bilaterally Neck/C-Spine: COMMON NORMALS: full ROM, no lymphadenopathy, supple, no meningeal signs, no JVD, thyroid normal and no carotid bruits THYROID: thyroid normal Chest: COMMONS NORMALS: inspection of chest normal and palpation of chest normal Resp: COMMON NORMALS: normal respiratory effort, no retractions, no use of accessory muscles, clear to auscultation bilaterally and percussion normal AUSCULTATION: clear to auscultation bilaterally PERCUSSION: percussion normal Cardio: COMMON NORMALS: no JVD, regular rate, regular rhythm, S1 normal heart sound, S2 normal heart sound, no gallops, no clicks, no murmurs, no rub and peripheral pulses 2+ throughout RATE: regular rate RHYTHM: regular rhythm HEART SOUNDS: S1 normal and S2 normal PERIPHERAL PULSES: pulses 2+ throughout GI: COMMON NORMALS: normal to inspection, nondistended, normoactive bowel sounds, soft to palpation, non-tender, no hepatosplenomegaly, no masses and no bruits PALPATION: Yes soft and Yes no hepatosplenomegaly : COMMON NORMALS: Yes no CVA tenderness and Yes external appearance normal BLADDER/KIDNEY EXAM: Yes no CVA tenderness Back/Pelvis: COMMON NORMALS: no CVA tenderness, thoracic and lumbar spine normal to inspection, no thoracic nor lumbar tenderness, thoraco-lumbar ROM normal and straight leg raise negative bilaterally Extremity: COMMON NORMALS: normal to inspection, full ROM, normal capillary refill, no joint enlargement, no clubbing, cyanosis or edema, no calf tenderness and no pedal edema Neuro: COMMON NORMALS: oriented x3 SENSORIUM/ORIENTATION: Yes alert MENINGEAL SIGNS: Yes no meningeal signs Skin: COMMON NORMALS: no rashes or lesions noted, no wounds, skin turgor normal, no jaundice, no petechiae and no mottling GENERAL SKIN EXAM: no rashes or lesions noted and turgor normal Course Vital Signs: Vital signs: Vital Signs Temperature 98 F 12/06/19 12:28 Pulse Rate 74 12/06/19 12:28 Respiratory Rate 20 H 12/06/19 12:28 Blood Pressure 111/65 12/06/19 12:28 Pulse Oximetry 98 12/06/19 12:28 [facility] - General Adult Lab Data: Labs: Lab Results 12/06/19 12/06/19 12/06/19 Range/Units 13:45 13:45 13:45 WBC 4.5 (4.0-10.0) 10^3/ uL RBC 3.73 L (4.1-5.3) 10^6/u L Hgb 10.1 L (11.5-15.3) g/dL Hct 32.4 L (37.0-47.0) % MCV 86.9 (81-99) fL MCH 27.1 L (28.0-34.0) pg MCHC 31.2 (30.0-36.0) g/dL RDW 19.7 H (12.1-15.1) % Plt Count 209 (130-400) 10^3/c mm MPV 12.2 H (7.4-10.4) fL Neut % (Auto) 54.2 % Lymph % (Auto) 24.9 % [place] % (Auto) 14.3 % Eos % (Auto) 2.0 % Baso % (Auto) 4.4 % Neut # (Auto) 2.5 (1.8-7.7) 10^3/u L Lymph # (Auto) 1.1 (0.8-4.8) 10^3/u L [place] # (Auto) 0.7 (0.2-0.9) 10^3/u L Eos # (Auto) 0.1 (0.0-0.8) 10^3/u L Baso # (Auto) 0.2 H (0.0-0.1) 10^3/u L Nucleated RBC % (a uto) 0 % Nucleated RBCs # 0.0 /100WBC Sodium 139 (136-145) mmol/L Potassium 2.8 L* (3.5-5.1) mmol/L Chloride 103 (98-107) mmol/L Carbon Dioxide 24 (22-29) mmol/L Anion Gap 14.8 (5-19) BUN 8 (8-23) mg/dL Creatinine 0.9 (0.5-0.9) mg/dL GFR Calculation 62.3 L (90-130) mL/min Glucose 133 H (74-106) mg/dL Calcium 5.4 L* (8.8-10.2) mg/Dl Phosphorus 1.2 L (2.5-4.5) mg/dL Total Bilirubin 0.2 (0.15-1.2) mg/dL AST 21 (0-32) U/L ALT 12 (0-33) U/L Alkaline Phosphata se 103 (35-105) IU/L Total Protein 5.7 L (6.6-8.7) g/dL Albumin 2.9 L (3.5-5.2) g/dL Globulin 2.8 (1.3-4.6) g/dL Imaging Data^: CT Head: Radiologist's impression: Patient: Valentin Clark Unit #: [id number] : 1950 Age/Sex: 69 / F ADM Date: 12/06/19 Loc: ER Room/Bed: Attending Dr: Ordering Provider/Ordering MD: Michoacano Osborn DO Date of Service: 12/06/19 Procedure(s): CT head wo con* [id number] Accession Number(s): [id number] Report Number: [id number] WS: [id number] CT HEAD NONCONTRAST HISTORY: numbness TECHNIQUE: Contiguous axial imaging performed through the brain in 2.5 mm imaging. Bone and soft tissue windows. Sagittal and coronal reformats reviewed. All CT scans at [facility] use at least one of these dose optimization techniques: automated exposure control; mA and/or kV adjustment per patient size (includes targeted exams where dose is matched to clinical indication); or iterative reconstruction. DLP: 864.47 mGy.cm COMPARISON: 11/14/2019 No acute intracranial hemorrhage, midline shift or mass effect. Mild atrophy and chronic ischemic disease. Patient has a known prior large LEFT cerebellar infarct with encephalomalacia. Ventricles: Normal size with no hydrocephalus. No inferior displacement of cerebellar tonsils. Paranasal sinuses: Small polyp or mucoperiosteal thickening in the RIGHT sphenoid sinus. Mastoid air cells: Well pneumatized. Calvarium and scalp: Destructive permeative process involving the RIGHT posterior parieto-occipital bone. Extends over a width of 5.2 cm. There is involvement and destruction of both the inner and outer tables of the skull with soft tissue. Very similar in appearance to the prior study. CT/CT head wo con* [id number] IMPRESSION: 1. No significant progression of the destructive permeative lesion involving the RIGHT parietal occipital bone with soft tissue and extension to the dura. Similar to 11/14/2019. 2. Large remote LEFT cerebellar infarct. 3. No acute intracranial hemorrhage or edema. Dictated By: Marj Silva DO Signed By: Marj Silva DO Signed Date/Time: 12/06/19 1456 DD/ [address]: Radiologist's impression: Patient: Valentin Clark Unit #: [id number] : 1950 Age/Sex: 69 / F ADM Date: 12/06/19 Loc: ER Room/Bed: Attending Dr: Ordering Provider/Ordering MD: Michoacano Osborn DO Date of Service: 12/06/19 Procedure(s): CT cervical spin wo con* [id number] Accession Number(s): [id number] Report Number: [id number] WS: [id number] CT CERVICAL SPINE HISTORY: numbness TECHNIQUE: Contiguous 2.5 mm axial imaging performed through the entire cervical spine. Sagittal and coronal reformats also performed. All CT scans at [facility] use at least one of these dose optimization techniques: automated exposure control; mA and/or kV adjustment per patient size (includes targeted exams where dose is matched to clinical indication); or iterative reconstruction. DLP: 639.95 mGy.cm COMPARISON: 11/14/2019 Normal cervical alignment. Craniocervical junction is normal. No osteoblastic or osteolytic bone disease. Large anterior bridging osteophytes from C2 through C3 and C4. Partial fusion across the C5-6 disc space and large clawlike osteophyte from C6 to C7. No fractures. C2-C3: Mild osteophytic ridging with mild LEFT foraminal stenosis. C3-C4: Mild osteophytic ridging with mild bilateral foraminal stenosis. C4-C5: Mild osteophytic ridging and moderate foraminal stenosis. C5-C6: Osteophytic ridging with mild bilateral foraminal stenosis. C6-C7: Central osteophyte with encroachment upon the ventral thecal sac. Mild central and foraminal stenosis. C7-T1: Central osteophyte with encroachment upon the ventral thecal sac. Mild central and foraminal stenosis. No new area of lytic disease. CT/CT cervical spin wo con* [id number] IMPRESSION: 1. No destructive lytic bone disease. 2. Multilevel stenoses and degenerative changes throughout the cervical spine. Moderate foraminal stenosis at C4-5. Mild encroachment upon the ventral thecal sac by osteophyte disease at C6-7 and C7-T1. Dictated By: Marj Silva DO Signed By: Marj Silva DO Signed Date/Time: 12/06/19 1502 DD/ 1456 Discharge Plan Discharge Patient Disposition: Admitted As Inpatient Clinical Impression: Acute hypokalemia, Hypocalcemia, Paresthesia of both feet, Paresthesia of both hands Condition: Stable Referrals: Luis Manuel Jimenes DO [Primary Care Provider] - Coding Level of Care Code ED Manager Group Home for [facility]
--- NOTE | 2019-12-06 16:02 | PM.HP ---
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 Patient received iron infusion yesterday with Dr. Rodriguez which was Injectafer (ferrous carboxymaltose). Infusion was unremarkable. This morning when patient woke up she started having tingling, numbness into her right hand followed by cramping and deformity of her fingers. She denies of having any nausea, vomiting, headache, dizziness, aura, loss of consciousness, weakness in any of the arms, loss of bowel or bladder control during that event. Patient also had some numbness and tingling of her left hand but did not have any cramping. Patient states she has been having on and off cramping of both her legs with more pain down her right calf muscles. Patient denies of having flulike symptoms, change in her bowel movements, dysuria, nausea, vomiting, fevers, photophobia, headache, recent trauma, neck pain, claudication in arms. Patient presented to the ER she was found to have multiple electrolyte abnormalities which as per Michael is most likely an adverse effect from Injectafer which she received yesterday. Patient is being admitted under observation for correction of electrolyte abnormalities. Review of Systems Const: Denies: fever, chills, body aches, change in appetite, malaise, night sweats, diaphoresis, change in sleep pattern, daytime sleepiness or snoring Eyes: Denies: change in vision, blurry vision, photophobia, eye discomfort or eye discharge ENMT: Denies: throat pain, enlarged tonsils, hoarseness, mouth pain, oral sores/lesions, dry mouth, tinnitus, nasal congestion or post nasal drip Card: Denies: chest pain, palpitations, irregular heart rhythm, edema, swelling of feet/ankles, lightheadedness, syncope, pre-syncope, shortness of breath on exertion, shortness of breath when lying down, leg pain with exertion or bluish discoloration of hands/feet Resp: Denies: shortness of breath, productive cough, non-productive cough, wheezing, stridor, pain on inspiration, change in phlegm color, coughing up blood or chest congestion GI: Denies: abdominal pain, nausea, vomiting, vomiting blood, coffee grounds in vomit, difficulty swallowing, heartburn/indigestion, diarrhea, constipation, bloating, cramping, change in bowel habits, painful bowel movements, blood in stool or black tarry stool : Denies: flank pain, painful urination, urinary frequency, urinary urgency, urinary hesitancy, nighttime urination or blood in urine Musc: Denies: neck pain, back pain, extremity pain, joint pain, joint swelling, redness, joint stiffness or limited range of motion Neuro: Denies: headache, numbness in extremities, weakness in extremities, changes in sensation, lack of coordination, difficulty walking, frequent falls, dizziness, vertigo, confusion, slurred speech, difficulty communicating thoughts or seizure-like activity Psych: Denies: anxiety, depression, mood swings, panic attacks, hopelessness or irritability Endo: Denies: excessive urination, excessive thirst, tired all the time, cold intolerance, excessive sweating, flushing or heat intolerance Justin/Lymph: Denies: easy bruising or easy bleeding All/Imm: Denies: tongue swelling, facial swelling or acute wheezing Medications/Allergies Home Medications Medication Instructions Recorded Confirmed Last Taken Type albuterol sulfate [Ventolin HFA] 1 puff INHALATION Q4H PRN 12/06/19 12/06/19 Unknown History apixaban [Eliquis] 5 mg PO BID 12/06/19 12/06/19 12/06/19 History becaplermin [Regranex] 1 applic TOPICAL EVERY OTHER DAY 12/06/19 12/06/19 12/06/19 History cyclobenzaprine 5 mg PO BID PRN 12/06/19 12/06/19 Unknown History ferric carboxymaltose [Injectafer] 750 mg IV Q7D 12/06/19 12/06/19 12/05/19 History fluoxetine 10 mg PO DAILY 12/06/19 12/06/19 12/06/19 History furosemide 40 mg PO EVERY OTHER DAY 12/06/19 12/06/19 12/05/19 History lenalidomide [Revlimid] 5 mg PO DAILY 12/06/19 12/06/19 12/06/19 History lorazepam 0.5 mg PO DAILY PRN 12/06/19 12/06/19 Unknown History pantoprazole 40 mg PO BID 12/06/19 12/06/19 12/05/19 History Allergies Allergy/AdvReac Type Severity Reaction Status Date / Time buspirone [From BuSpar] Allergy ADR-Chest Verified 12/06/19 12:36 Pain codeine Allergy ADR-Nausea Verified 12/06/19 12:36 levofloxacin [From Levaquin] Allergy ADV-Weaknes Verified 12/06/19 12:36 s morphine Allergy ADR-Nausea Verified 12/06/19 12:36 PFSH Acute PFSH: Statuses (acute, chronic, etc) shown below reflect problem list status as previously entered and may not be historically accurate Medical History Depression (Acute) FHx: cholecystectomy (Acute) Gastroesophageal reflux (Acute) Hypertension (Acute) MRSA (methicillin resistant staph aureus) culture positive (Acute) Multiple myeloma (Acute) Plasmacytoma (Acute) Pulmonary embolism (Acute) Surgical History History of appendectomy (Acute) Hx of tonsillectomy (Acute) Social History (Updated 12/06/19 @ 16:28 by Anton Zhang MD) Smoking and tobacco status: never smoked Alcohol intake: never Substance/Drug Use: never Household members: family Housing: House Vitals/I&O/Wt Last Vital Signs Temp 98 F 12/06/19 12:28 Pulse 74 12/06/19 12:28 Resp 20 H 12/06/19 12:28 BP 111/65 12/06/19 12:28 Pulse Ox 98 12/06/19 12:28 Weight last 48 hrs Weight 96.615 kg Physical Exam Narrative: EXAM NARRATIVE: General: No acute distress, AO x3 HEENT: PERRLA, pupils bilaterally equal and reactive Chest: Normal vesicular breath sounds, no added sounds, equal good air entry bilaterally CVS: S1-S2 regular, no murmurs, no tachycardia, no gallops, no rubs Abdomen: Soft, nontender, no organomegaly, bowel sounds present Neuro: No focal deficits, no facial deformity, AO x3, power 5/5 in all limbs Extremities: Mild lateral deformities of 5 fingers on the right hand, pulses bilaterally equal, no pedal edema. Data : 12/06/19 13:45 12/06/19 13:45 A&P Assessment and plan (1) Acute hypokalemia: Status: Acute Code(s): E87.6 - Hypokalemia (2) Hypocalcemia: Status: Acute Code(s): E83.51 - Hypocalcemia (3) Paresthesia of both hands: Status: Acute Code(s): R20.2 - Paresthesia of skin (4) Hypertension: Status: Acute Code(s): I10 - Essential (primary) hypertension (5) Hypophosphatemia: Status: Acute Code(s): E83.39 - Other disorders of phosphorus metabolism Additional A&P Information Paresthesias secondary to hypocalcemia, hypokalemia, hypophosphatemia: Most likely as a side effect to Injectafer infusion which she received yesterday. Check EKG. Admit with telemetry. Check magnesium. Hypokalemia: Overall patient has received 80 mEq of potassium in divided doses for now. On admission potassium was 2.8. Will replace 40 mEq orally. Hypocalcemia: 5.4 on admission. Has received 2 mg of IV calcium gluconate till now. Will replace 1 more milligram right now. Hypophosphatemia: Has not received any phosphate till now. Will start patient on potassium phosphate 30 mmol IV once. We will recheck BMP with phosphate and magnesium at 6 PM. We will withhold home dose of Lasix for now. Patient is euvolemic at present. History of DVT with pulmonary embolism: Patient is complaining of cramps in her right leg since 2 weeks. Check lower limb Dopplers. Continue home dose of Eliquis. We will continue her on home dose of Revlimid, fluoxetine, as needed Benzapril and Ativan. Full code Regular diet Protonix for PUD prophylaxis Eliquis will help for DVT prophylaxis as well. Attestations Medical Necessity Statement*: Admitted under observation. Admission for most likely less than 2 midnights for electrode abnormalities Time Spent in Patient Care: Greater than 35 minutes Coding Level of Care Code Acute Learning Development Specialist for Chg Fwd Diagnoses Acute hypokalemia E87.6 Hypocalcemia E83.51 Paresthesia of both hands R20.2 Hypertension I10 Hypophosphatemia E83.39
[2019-12-06 16:09] LABS: Bilirubin Urine Neg (NEGATIVE); Blood Urine Neg (Negative); Glucose Urine UA 2+ (Normal); Ketones Urine Negative (Negative); Leukocyte Esterase Urine Negative (Negative); Nitrate Urine Negative (Negative); Protein Urine Neg (Negative); Specific Gravity, Urine 1.005 (1.005-1.030); Urine Appearance Clear (CLEAR); Urine Color Straw (Yellow); Urobilinogen Urine Norm (Negative); pH Urine 5 (5-7)
[2019-12-06 16:10] LABS: Add Urine Culture? No; Bacteria Urine TRACE; Squamous Epithelial Cell Urine 0-4 (0-5); WBC Urine 0-4 /hpf (0-5)
--- NOTE | 2019-12-06 16:39 | USCV_ITS ---
Valentin Clark Age: 69 Gender: F : 1950 Exam Date: 12/06/2019 18:33 Ordering Phys: Anton Zhang MD Technologist: Lyubov Deleon [place]am Location[place] [facility] [place]: SWELLING HISTORY: Lower extremity swelling. PROCEDURES: Venous duplex imaging was performed in bilateral lower extremities. The following venous structures were evaluated: common femoral vein, profunda vein, proximal portion of the greater saphenous vein, superficial femoral vein, and the popliteal vein. In addition, the posterior tibial and peroneal trunk were evaluated. Serial compression, augmentation maneuvers, and spectral Doppler flow evaluation were performed. FINDINGS: Normal 2-D Doppler and augmentation and compressibility throughout the lower extremity venous structures. Additional imaging through the proximal calf veins also reveals no thrombus. Limited evaluation of the greater saphenous vein is patent with no thrombus. CONCLUSIONS No DVT bilateral lower extremities. Dr. Marj Silva DO (Electronically Signed) Final Date: 07 December 2019 09:42 S
[2019-12-06] MEDS: apixaban 5 mg Tablet PO (18:32)
[2019-12-06] MEDS: pantoprazole DR 40 mg Tablet PO (18:32)
[2019-12-06 19:29] LABS: Anion Gap 17.2 (5-19); Blood Urea Nitrogen 8 mg/dL (8-23); Carbon Dioxide 20 mmol/L (22-29); Chloride 102 mmol/L (98-107); Glomerular Filtration Rate 55.1 mL/min (90-130); Glucose 292 mg/dL (74-106); Magnesium 1.5 mg/dL (1.7-2.3); Phosphorus 1.4 mg/dL (2.5-4.5); Potassium 3.2 mmol/L (3.5-5.1); Sodium 136 mmol/L (136-145); Thyroid Stimulating Hormone 2.86 uIU/mL (0.27-4.20)
[2019-12-06 19:44] LABS: Calcium 5.9 mg/Dl (8.8-10.2)
[2019-12-06] MEDS: sodium chloride 0.9% 100 ML 30 ML (19:54)
[2019-12-06] MEDS: LORazepam 0.5 mg Tablet PO (20:19)
[2019-12-06] MEDS: fluoxetine 20 mg Capsule PO (20:55)
[2019-12-06] MEDS: fluoxetine 10 mg Capsule PO (20:55)
[2019-12-06] MEDS: acetaminophen 325 mg Tablet 650 MG PO (22:30)
[2019-12-07] VITALS (8 sets, daily range): BP systolic 100–132; BP diastolic 60–69; PULSE 62–79; RESP 16–22; TEMP 36.3–37.1; O2SAT 92–97
--- NOTE | 2019-12-07 01:57 | PC.NURSE ---
Patient requested that she not be brought down to CT until the morning after she gets some sleep.
[2019-12-07 04:33] LABS: Cholesterol 134 mg/dL (0-200); HDL Cholesterol 67 mg/dL (60-100); LDL Cholesterol Calculated 57 mg/dL (50-129); LDL HDL Ratio 0.85 RATIO (0.00-3.22); Triglycerides 52 mg/dL (0-150)
[2019-12-07 04:34] LABS: Alanine Aminotransferase 10 U/L (0-33); Albumin Level 2.8 g/dL (3.5-5.2); Alkaline Phosphatase 93 IU/L (35-105); Anion Gap 13.4 (5-19); Aspartate Amino Transferase 15 U/L (0-32); Blood Urea Nitrogen 5 mg/dL (8-23); Carbon Dioxide 23 mmol/L (22-29); Chloride 109 mmol/L (98-107); Glomerular Filtration Rate 71.3 mL/min (90-130); Glucose 88 mg/dL (74-106); Magnesium 1.2 mg/dL (1.7-2.3); Phosphorus 2.1 mg/dL (2.5-4.5); Potassium 3.4 mmol/L (3.5-5.1); Sodium 142 mmol/L (136-145); Total Bilirubin 0.2 mg/dL (0.15-1.2); Total Protein 4.8 g/dL (6.6-8.7)
[2019-12-07 04:43] LABS: Calcium 5.8 mg/Dl (8.8-10.2)
[2019-12-07] MEDS: pantoprazole DR 40 mg Tablet PO (08:37)
[2019-12-07] MEDS: apixaban 5 mg Tablet PO (08:37)
[2019-12-07 10:21] LABS: Ionized Calcium 0.8 mmol/L (1.1-1.4)
[2019-12-07] MEDS: magnesium sulfate premix 2 GM/50 ML PIGGYBACK IV (11:07)
--- NOTE | 2019-12-07 11:12 | P.DS_ITS ---
Discharge Providers Date of Admission: 12/06/19 15:57 Date of Discharge: 12/07/19 Attending Provider at Admission: Anton Zhang MD Attending Provider at Discharge: Anton Zhang MD Primary Care Provider: Luis Manuel Jimenes DO Diagnoses at Discharge Discharge Diagnosis (1) Acute hypokalemia: Status: Acute (2) Hypocalcemia: Status: Acute (3) Paresthesia of both hands: Status: Acute (4) Hypertension: Status: Acute (5) Hypophosphatemia: Status: Acute Reason for Visit Reason for Visit: Reason For Visit: Dr Jimenes sent- Numbness in hands Hospital Course Discharge Summary: Valentin Clark is a 69 year old female past medical history of hypertension, anxiety/depression, DVT leading to bilateral pulmonary embolism in 2018 so on chronic anticoagulation with Eliquis, IgG lambda myeloma, postop intracranial resection for 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 Patient received iron infusion on December [address] Rodriguez which was Injectafer (ferrous carboxymaltose). Infusion was unremarkable. She presented to the ER on December 06 when she woke up and started having tingling, numbness into her right hand followed by cramping and deformity of her fingers. In ER she was found to have multiple electrolytes abnormalities with hypocalcemia, hypokalemia, hypophosphatemia and hypomagnesia which were all thought to be as an adverse effect from Injectafer. Case was discussed with Dr. Rodriguez. Patient received multiple rounds of el ectrolyte replacement. She responded well to the treatment and her potassium, phosphorus came back to be normal while corrected calcium for albumin was low normal. Patient is being discharged home on oral supplementation for potassium and calcium and is advised to follow-up with Dr. Rodriguez next week and to have repeat blood work for basic metabolic panel, magnesium as an outpatient in 3 days. Physical Exam Narrative: EXAM NARRATIVE: General: No acute distress, AO x3 HEENT: PERRLA, pupils bilaterally equal and reactive Chest: Normal vesicular breath sounds, no added sounds, equal good air entry bilaterally CVS: S1-S2 regular, no murmurs, no tachycardia, no gallops, no rubs Abdomen: Soft, nontender, no organomegaly, bowel sounds present Neuro: No focal deficits, no facial deformity, AO x3, power 5/5 in all limbs Extremities: Mild lateral deformities of 5 fingers on the right hand, pulses bilaterally equal, no pedal edema. Discharge Data Data Completed and Pending: Completed Studies During Hospitalization Category Date Time Status CT cervical spin wo con* [id number] Urge nt Cat Scan 12/06/19 14:[address] head wo con* [id number] Urgent Cat Scan 12/06/19 14:21 [place] [id number] Routin e Ultrasound 12/06/19 16:39 Completed Labs from last 24 hours 12/07/19 12/07/19 12/07/19 10:04 03:41 03:41 WBC RBC Hgb Hct MCV MCH MCHC RDW Plt Count MPV Neut % (Auto) Lymph % (Auto) [place] % (Auto) Eos % (Auto) Baso % (Auto) Neut # (Auto) Lymph # (Auto) [place] # (Auto) Eos # (Auto) Baso # (Auto) Nucleated RBC % (a uto) Nucleated RBCs # Sodium 142 Potassium 3.4 L Chloride 109 H Carbon Dioxide 23 Anion Gap 13.4 BUN 5 L Creatinine 0.8 GFR Calculation 71.3 L Glucose 88 Calcium 5.8 L* Ionized Calcium Me as 0.8 L Phosphorus 2.1 L Magnesium 1.2 L Total Bilirubin 0.2 AST 15 ALT 10 Alkaline Phosphata se 93 Total Protein 4.8 L Albumin 2.8 L Globulin 2.0 Triglycerides 52 Cholesterol 134 LDL Cholesterol, C alc 57 HDL Cholesterol 67 LDL/HDL Ratio 0.85 Cholesterol/HDL Ra john 2.00 TSH Urine Color Urine Appearance Urine pH Ur Specific Gravit y Urine Protein Urine Glucose (UA) Urine Ketones Urine Occult Blood Urine Nitrate Urine Bilirubin Urine Urobilinogen Ur Leukocyte Marybel ase Urine RBC Urine WBC Ur Squamous Epith Cells Urine Bacteria 12/06/19 12/06/19 12/06/19 18:54 15:37 13:45 WBC RBC Hgb Hct MCV MCH MCHC RDW Plt Count MPV Neut % (Auto) Lymph % (Auto) [place] % (Auto) Eos % (Auto) Baso % (Auto) Neut # (Auto) Lymph # (Auto) [place] # (Auto) Eos # (Auto) Baso # (Auto) Nucleated RBC % (a uto) Nucleated RBCs # Sodium 136 Potassium 3.2 L Chloride 102 Carbon Dioxide 20 L Anion Gap 17.2 BUN 8 Creatinine 1.0 H GFR Calculation 55.1 L Glucose 292 H Calcium 5.9 L Ionized Calcium Me as Phosphorus 1.4 L 1.2 L Magnesium 1.5 L Total Bilirubin AST ALT Alkaline Phosphata se Total Protein Albumin Globulin Triglycerides Cholesterol LDL Cholesterol, C alc HDL Cholesterol LDL/HDL Ratio Cholesterol/HDL Ra john TSH 2.86 Urine Color Straw Urine Appearance Clear Urine pH 5 Ur Specific Gravit y 1.005 Urine Protein Neg Urine Glucose (UA) 2+ Urine Ketones Negative Urine Occult Blood Neg Urine Nitrate Negative Urine Bilirubin Neg Urine Urobilinogen Norm Ur Leukocyte Marybel ase Negative Urine RBC None Urine WBC 0-4 H Ur Squamous Epith Cells 0-4 H Urine Bacteria Trace 12/06/19 12/06/19 13:45 13:45 WBC 4.5 RBC 3.73 L Hgb 10.1 L Hct 32.4 L MCV 86.9 MCH 27.1 L MCHC 31.2 RDW 19.7 H Plt Count 209 MPV 12.2 H Neut % (Auto) 54.2 Lymph % (Auto) 24.9 [place] % (Auto) 14.3 Eos % (Auto) 2.0 Baso % (Auto) 4.4 Neut # (Auto) 2.5 Lymph # (Auto) 1.1 [place] # (Auto) 0.7 Eos # (Auto) 0.1 Baso # (Auto) 0.2 H Nucleated RBC % (a uto) 0 Nucleated RBCs # 0.0 Sodium 139 Potassium 2.8 L* Chloride 103 Carbon Dioxide 24 Anion Gap 14.8 BUN 8 Creatinine 0.9 GFR Calculation 62.3 L Glucose 133 H Calcium 5.4 L* Ionized Calcium Me as Phosphorus Magnesium Total Bilirubin 0.2 AST 21 ALT 12 Alkaline Phosphata se 103 Total Protein 5.7 L Albumin 2.9 L Globulin 2.8 Triglycerides Cholesterol LDL Cholesterol, C alc HDL Cholesterol LDL/HDL Ratio Cholesterol/HDL Ra john TSH Urine Color Urine Appearance Urine pH Ur Specific Gravit y Urine Protein Urine Glucose (UA) Urine Ketones Urine Occult Blood Urine Nitrate Urine Bilirubin Urine Urobilinogen Ur Leukocyte Marybel ase Urine RBC Urine WBC Ur Squamous Epith Cells Urine Bacteria Vitals: Last Vital Signs Temp 98.8 F 12/07/19 10:50 Pulse 67 12/07/19 10:50 Resp 22 H 12/07/19 10:50 BP 110/65 12/07/19 10:50 Pulse Ox 96 12/07/19 10:50 Discharge Plan Discharge Patient Disposition: Home, Self-Care Condition: Stable Prescriptions: New calcium carbonate 650 mg calcium (1,625 mg) tablet 650 mg PO BID Qty: 20 RF: 0 potassium chloride 10 mEq capsule, extended release 10 meq PO BID Qty: 30 RF: 0 Continued furosemide 40 mg tablet 40 mg PO EVERY OTHER DAY RF: 0 fluoxetine 10 mg tablet 10 mg PO DAILY RF: 0 lorazepam 0.5 mg Tablet 0.5 mg PO DAILY PRN (Reason: Anxiety) RF: 0 pantoprazole 40 mg tablet,delayed release (DR/EC) 40 mg PO BID RF: 0 Regranex 0.01 % Gel 1 applic TOPICAL EVERY OTHER DAY RF: 0 Ventolin HFA 90 mcg/actuation HFA aerosol inhaler 1 puff INHALATION Q4H PRN (Reason: Shortness Of Breath) RF: 0 cyclobenzaprine 5 mg tablet 5 mg PO BID PRN (Reason: Muscle Pain) RF: 0 Revlimid 5 mg capsule 5 mg PO DAILY RF: 0 Eliquis 5 mg tablet 5 mg PO BID RF: 0 Discontinued Injectafer 50 iron mg/mL Solution 750 mg IV Q7D RF: 0 Discharge Orders: Discharge Order (Routine); Ordered 12/07/19 Ordered By: Anton Zhang Other Ambulatory Orders: Basic Metabolic Panel (Routine) Timeframe: 3 Days Facility: [facility] - Location: Lab - Main Lab Ordered By: Anton Zhang Ionized Calcium (Routine) Timeframe: 3 Days Facility: [facility] - Location: Lab - Main Lab Ordered By: Anton Zhang Magnesium (Routine) Timeframe: 3 Days Facility: [facility] - Location: Lab - Main Lab Ordered By: Anton Zhang Phosphorus (Routine) Timeframe: 3 Days Facility: [facility] - Location: Lab - Main Lab Ordered By: Anton Zhang Referrals: Ruiz Rodriguez MD [Hospitalist] - 1 week (Appointment scheduled for 12/12/2019 at 10:30 for labs and appointment with Dr. Rodriguez at 12:00 pm. Please bring your medication list with you ) Luis Manuel Jimenes DO [Primary Care Provider] - (Apppointment with Dr. Jimenes on 12/14/2019 at 9:40. Please bring your medication list with you. ) Discharge Diet: Advance as tolerated Discharge Activity: Resume usual activity Patient Instructions: Potassium Chloride (By mouth), Calcium Supplement (By mouth), Hypertension, Hypocalcemia (DC) Discharge Attestations Time Spent in Discharge Care*: greater than 30 min Specific Discharge Activities: Specific discharge activities: educating patient Status at Discharge: Cognitive status at discharge: cognitively intact , Behavioral status at discharge: cooperative , Functional status at discharge: independent ambulation Overall status at discharge: patient is progressing back to baseline Quality Metrics Clinical Quality Measures During this hospital stay, did patient experience: None Coding Level of Care Code Acute Microbiology Quality Control Technician for Sylviag Fwd Diagnoses Acute hypokalemia E87.6 Hypocalcemia E83.51 Paresthesia of both hands R20.2 Hypertension I10 Hypophosphatemia E83.39
== END 2019-12-07 15:29 | disposition home or self-care (01) ==
LOC: ER 14:59 → MEDSURG 15:57
PROVIDERS: Admitting Provider Student in an Organized Health Care Education/Training Program; Emergency Provider Family Medicine; Family Provider Electrodiagnostic Medicine; PCP Electrodiagnostic Medicine; Visit Provider Student in an Organized Health Care Education/Training Program
DX: E87.6 Hypokalemia (principal); E83.51 Hypocalcemia; R20.2 Paresthesia of skin; I10 Essential (primary) hypertension; E83.39 Other disorders of phosphorus metabolism; M79.89 Other specified soft tissue disorders; Z86.718 Personal history of other venous thrombosis and embolism; Z79.01 Long term (current) use of anticoagulants; F32.9 Major depressive disorder, single episode, unspecified; K21.9 Gastro-esophageal reflux disease without esophagitis; Z86.14 Personal history of Methicillin resistant Staphylococcus aureus infection
CPT/HCPCS: 12345; 36415; 70450; 72125; 80048; 80053; 80061; 81001; 82330; 83735; 84100; 84443; 85025; 93970; 94664; 96361; 96365; 96366; 96368; 96374; 96375; 99282; 99285; G0378; J0610; J2001; J3475; J3480

== ENCOUNTER 2019-12-14 05:48 | Outpatient (RCR) | payer MEDICARE, SELFPAY ==
[2019-12-12 09:56] LABS: Basophils # 0.2 10^3/uL (0.0-0.1); Basophils % 3.9 %; Eosinophils # 0.2 10^3/uL (0.0-0.8); Eosinophils % 3.7 %; Hemoglobin 10.9 g/dL (11.5-15.3); Lymphocytes # 1.2 10^3/uL (0.8-4.8); Lymphocytes % 28.9 %; Mean Corpuscular HGB Conc 31.1 g/dL (30.0-36.0); Mean Corpuscular Hemoglobin 28.2 pg (28.0-34.0); Mean Corpuscular Volume 90.4 fL (81-99); Mean Platelet Volume 11.8 fL (7.4-10.4); Monocytes # 0.6 10^3/uL (0.2-0.9); Monocytes % 15.6 %; Neutrophils % 47.7 %; Nucleated Red Blood Cells % 0 %; Platelet Count 202 10^3/cmm (130-400); Red Blood Count 3.87 10^6/uL (4.1-5.3); White Blood Count 4.1 10^3/uL (4.0-10.0)
[2019-12-12 10:14] LABS: Alanine Aminotransferase 11 U/L (0-33); Albumin Level 3.6 g/dL (3.5-5.2); Alkaline Phosphatase 103 IU/L (35-105); Anion Gap 14.4 (5-19); Aspartate Amino Transferase 19 U/L (0-32); Blood Urea Nitrogen 6 mg/dL (8-23); Carbon Dioxide 25 mmol/L (22-29); Chloride 100 mmol/L (98-107); Globulin 2.4 g/dL (1.3-4.6); Glomerular Filtration Rate 62.3 mL/min (90-130); Glucose 100 mg/dL (74-106); Phosphorus 1.2 mg/dL (2.5-4.5); Potassium 3.4 mmol/L (3.5-5.1); Sodium 136 mmol/L (136-145); Total Bilirubin 0.2 mg/dL (0.15-1.2)
[2019-12-12 10:26] LABS: Calcium 5.3 mg/dL (8.5-10.5)
[2019-12-12] MEDS: acetaminophen 325 mg Tablet 650 MG PO (17:05)
[2019-12-12 18:35] LABS: Ionized Calcium 0.7 mmol/L (1.1-1.4)
--- NOTE | 2019-12-12 22:00 | ONC FU_ITS ---
Dr. Rodriguez Patient Follow-Up Note Patient: Valentin Clark Unit #: [id number]: 1950 Dicatated By: Ruiz Rodriguez M.D.Date of Visit:Dec 12, 2019 Onc Med Follow-up/Prog Note Chief Complaint: Mulitple myeloma. 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 In March 2018 she had bumped her head at work and in the process of that she became aware of a small lump, though it was actually in a slightly different area. She then noticed that the lump was getting larger. Evaluation with head MRI on 06/07/2018 showed evidence of a right parietal occipital extra-axial neoplasm, felt to be most likely meningeal in origin. It was noted to exert mass effect on the right parietal and occipital lobes, but without associated midline shift or white matter parenchymal edema. The lesion was noted to invade through the calvarium and into the subcutaneous parietal occipital scalp soft tissues. The mass measured 5.7 x 3.5 x 6 cm. 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 The area of occlusion was noted to extend over approximately 4.3 cm. She was seen by Dr. Landry and subsequently referred for neurosurgery evaluation at [facility]. Initially they had considered possible surgical resection. Her further evaluation there apparently included laboratory findings which were suspicious for myeloma, and it was recommended that she have treatment with radiation. She was seen here for further management on 07/14/2018. She then returned to Dr. Landry, and on 07/20/2018 she underwent open biopsy/resection of the extracranial extent of the mass. 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 Her further evaluation included protein electrophoresis which showed an IgG lambda monoclonal protein in the serum quantitating at 0.48 g/dL. The serum free light chain assay showed elevated lambda light chain at 374.65 mg/L with decreased kappa/lambda ratio at 0.06. The 24-hour urine protein electrophoresis showed no monoclonal protein. There were no other areas of lytic bone involvement noted on her skeletal survey. Bone marrow aspiration/biopsy on 07/30/2018 showed a monotypic plasma cell population, but it comprised only 2% of the total cellularity. A FISH panel for myeloma was unrevealing, and the standard chromosome analysis was normal. She was referred to Dr. Kaur, and she began radiation to the lesion on 07/30/2018. She completed treatment on 09/02/2018 to a total dose of 5,000 cGy. She had evaluation with CT pulmonary angiogram on 09/14/2018. It showed moderate bilateral pulmonary embolic burden. She began on anticoagulation with apixaban. During her subsequent follow-up she continued to have an open wound at the site of the plasmacytoma in the parietal-occipital scalp region. As of her follow-up visit on 10/19/2018 her M protein was stable 0.37 g/dL. In the absence of any evidence of symptomatic myeloma, she had otherwise just continued on observation/expectant management. However, due to her persistent scalp wound she had a repeat brain MRI on 01/11/2019. It showed evidence of residual neoplastic process at the resection site. There was associated dural involvement but with improved signal characteristics and decreased enhancement compared to the study from September 2018. She was seen for a follow-up visit on 01/20/2019. In view of the MRI findings, she had further evaluation with PET/CT on 02/03/2019. It showed increase in size and expansile hypermetabolic lesion within the left ilium with extension of hypermetabolic tumor into the adjacent left iliac muscle. There was a new hypermetabolic lytic process within the right S1/S2 region. A large lytic mass within the posterior calvarium did not appear to have active hypermetabolism. Also noted, though, was a hypermetabolic lesion within the medullary canal of the distal left femoral diametaphysis and an additional hypermetabolic focus in the anterior cortex of the distal right femur concerning for additional areas of myeloma. In the setting of obvious progression of her myeloma, she was recommended to begin a trial of therapy with Velcade/Revlimid/dexamethasone. Her other medical illnesses include hypertension and degenerative arthritis/degenerative disease of the spine. She has associated cervical and lumbar spinal stenosis. She has a history of endometriosis, and she has anxiety/depression. She is a nonsmoker. INTERIM HISTORY: She began cycle 1 of VRd on 02/23/2019. At that time she also received an infusion of IV Zometa for the lytic bone involvement. At that time, there was a slight increase in her baseline creatinine level to 1.2 mg/dL, and did opt to reduce her Revlimid dosage because of that. She experienced significant toxicity following her day 1 treatment, mainly having become listless and out of it over the next 4-5 days. She also lost her appetite. Her follow-up lab studies showed a drop in her calcium from baseline 10.3 mg/dL to 6.5 mg/dL with albumin 3.5 g/dL. With that finding, I did opt to hold her further Velcade, but she continued Revlimid and dexamethasone. As of 03/09/2019 she restarted treatment with Velcade at 1.3 mg/m??? weekly with Revlimid reduced to 15 mg daily on a 21/28 day schedule and the dexamethasone dosage reduced to 20 mg weekly. As of her day 15 visit, she was tolerating the treatment well. At that time she received the full dosage of Velcade, and she continued Revlimid 15 mg daily for 7 more days. She had subsequently developed diarrhea, and at her followup visit on 04/07/2019 her treatment was put on hold. She eventually continued with cycle 3 on 05/05/2019 with the Revlimid dosage further reduced to 10 mg daily on a 21/28 day schedule and with the Velcade and dexamethasone dosed weekly. Her repeat SPEP at that time showed residual M protein quantitating at 0.3 g/dL. The free light chain assay showed kappa light chain 100 mg/L, lambda light chain 122 mg/L, and kappa/lambda ratio 0.82. Her treatment was put on hold again at day 8 due to worsening neuropathy. She subsequently was able to continue the Revlimid and dexamethasone, but the Velcade remained on hold. Her repeat protein electrophoresis on 06/09/2019 showed stable M protein at 0.3 g/dL. The serum free light chain assay showed normal kappa/lambda ratio at 0.84. She was seen for a follow-up visit on 06/21/2019. At that point she appeared stable clinically. Her blood counts were adequate, and she continued with her 4th cycle of treatment. Her repeat protein electrophoresis on 07/13/2019 showed residual M protein quantitating at 0.2 g/dL. The free light chain assay showed elevated kappa light chain at 31.0 mg/L and elevated lambda light chain at 33.0 mg/L with normal kappa/lambda ratio at 0.94. Her 24-hour urine protein electrophoresis showed no detectable monoclonal protein. She was seen for a follow-up visit on 07/19/2019. At that point she complained of increased fatigue and excessive somnolence, and I did opt to put her treatment on hold. A subsequent restaging PET/CT showed no FDG avid sites of involvement. Her repeat head MRI on 08/10/2019 showed no evidence of recurrent or progressive disease. With those findings, I opted to transition her treatment to maintenance Revlimid at 5 mg daily, which she started following her visit on 08/17/2019. Her further laboratory studies on 09/22/2019 also showed a low B12 level at 189 pg/mL, and she subsequently started B12 replacement therapy. A sleep study in October 2019 showed moderate obstructive sleep apnea. At her follow-up visit on 11/28/2019 she was still mildly anemic, and transferrin saturation was still low at 17% despite being on oral iron replacement. As such, she was then given parenteral iron replacement with infusions of Injectafer on 11/28/2019 and on 12/05/2019. With the 11/28 visit she also was given denosumab 120 mg by subcutaneous injection for the lytic bone involvement. On 12/06/2019 she was admitted to the hospital with symptomatic hypocalcemia, serum calcium 5.9 mg/dL with albumin 2.9 g/dL. Renal function was stable with creatinine 1.0 mg/dL, but her potassium also was low at 3.2 mmol/L. She was given IV calcium and potassium replacement. She is seen for a follow-up visit. She is still feeling weak, and she has very limited activity. Her ECOG score is 2. She complained that she has no appetite. She has not had fever. She has a little bit of sweating at night. She continues to complain of muscle cramping in her fingers, and she also complains that she is numb all over. She has been on oral potassium supplement twice a day and a calcium/vitamin D supplement twice a day. Medications: Acetaminophen 1 Tablet (of 650 mg) Oral PRN, Biotin Plus Keratin 1 Tablet (of 22037 mcg) Oral daily, Bisacodyl 1 Tablet (of 5 mg) Tablet, enteric coated Oral PRN, Calcium Citrate + D 1 Capsule (of 600-800 mg - Units) Tablet Oral daily, Eliquis 1 Tablet (of 5 mg) Oral b.i.d., Essiac Tonic 1 Capsule Oral b.i.d., FLUoxetine HCl 1 Capsule (of 30 mg) Oral daily, Furosemide 1 Tablet (of 40 mg) Oral daily on Every Other Day, GoodSense Stimulant Laxative 2 Tablet (of 8.6-50 mg) Oral t.i.d. PRN, Loratadine 1 Tablet (of 10 mg) Oral daily PRN, LORazepam 1 Tablet (of 0.5 mg) Oral b.i.d., Pantoprazole Sodium 1 Tablet (of 40 mg) Tablet, enteric coated Oral b.i.d., Potassium Chloride ER 1 Tablet (of 20 meq) Tablet, controlled release Oral b.i.d., Zoe 1 patch(es) Patch Topical daily, Probiotic Acidophilus 2 Capsule Tablet Oral daily, Regranex 1 (0.01 %) Gel (jelly) Topical daily PRN, Revlimid 1 Tablet (of 5 mg) Capsule Oral daily, Sulfamethoxazole-Trimethoprim (800-160 mg) Tablet Oral Take as Directed, Ventolin HFA 1 (108 (90 base) mcg/act) Aerosol, solution Inhalation PRN, Vitamin B12 1 Tablet (of 2500 mg) Tablet, controlled release Oral daily, Vitamin D3 1 Tablet (of 2000 Units) Oral b.i.d. Allergies: BusPIRone HCl, Codeine and Related, Levaquin, and Morphine Derivatives. Review of Systems: Constitutional - Her energy is low and she is not feeling very good. She is still able to do only a little bit of light work at home. Her appetite is not good and her weight is up a few pounds. No fever, chills or hot flashes. She has had some light sweating at times. ECOG score is 2, ENMT - No sinus congestion/drainage. No mouth sores. No sore throat or difficulty swallowing, Hematologic/Lymphatic - She bruises easily, Respiratory - No shortness of breath. No cough. No pleuritic pain or hemoptysis, Cardiovascular - She had an episode of chest pressure that lasted about 12 hours. She has palpitations, Gastrointestinal - No nausea or vomiting. No heartburn or acid reflux. Her bowels go between loose and constipated. No blood in the stool or black stools, Genitourinary (F) - No dysuria or hematuria. No urinary frequency. She has some urgency and incontinence, Musculoskeletal - She is having more pain in her joints and her back. She has cramping in her hands and legs, Integumentary - No skin complications, Neurologic - She has some headaches. She feels light-headed and off-balance. Her hands and toes are numb, Psychiatric - She has some anxiety and depression. She is having a hard time getting to sleep at night. Vital Signs: Performed on Dec 12, 2019 12:09 Height - 63.50 in Weight - 217.6 lbs (HIGH) BSA - 2.02 sq.m BMI - 37.94 (HIGH) Temperature - 97.7 F (LOW) Pulse - 80 /min Respiration - 16 /min BP - 114/68 mm(hg) O2 Sat - 96 % Pain - 0 Physical Examination: Constitutional - She appears generally weak, Eyes - Sclerae nonicteric. Conjunctivae clear, ENMT - No lesions noted in the oral cavity, Hematologic/Lymphatic - No cervical, clavicular, or axillary adenopathy, Respiratory - Lungs are clear with good air movement bilaterally, Cardiovascular - Heart rhythm is regular. There is a II/ systolic murmur. There is no gallop or rub noted, Abdomen - Mildly distended but soft. Liver and spleen are not enlarged. There is no abdominal mass or ascites noted and there is no inguinal adenopathy, Extremities - Mild lower extremity edema, Neurologic - No focal neurologic deficits noted. Lab/Imaging: Test performed on Dec 12, 2019 09:40 Phosphorus 1.2 mg/dL Sodium 136 mmol/L Potassium 3.4 mmol/L Chloride 100 mmol/L CO2 25 mmol/L Anion Gap 14.4 BUN 6 mg/dL Creatinine 0.9 mg/dL Cr Clearance (Est) 93.22 mL/min eGFR 62.3 mL/min Glucose 100 mg/dL Calcium 5.3 mg/dL Protein, Total 6.0 g/dL Albumin 3.6 g/dL Globulin 2.4 g/dL Bilirubin, Total 0.2 mg/dL ALT (SGPT) 11 U/L AST (SGOT) 19 U/L Alkaline Phosphatase 103 IU/L WBC 4.1 10 3/uL RBC 3.87 10 6/uL HGB 10.9 g/dL HCT 35.0 % MCV 90.4 fL MCH 28.2 pg MCHC 31.1 g/dL RDW 21.0 % Platelet Count 202 10 3/cmm MPV 11.8 fL Neutrophils 2.0 10 3/uL Lymphocytes 1.2 10 3/uL Monocytes 0.6 10 3/uL Eosinophils 0.2 10 3/uL Basophils 0.2 10 3/uL Neutrophil % 47.7 % Lymphocyte % 28.9 % Monocyte % 15.6 % Eosinophil % 3.7 % Basophils % 3.9 % Impression: 1. 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 She underwent resection/open biopsy of the extracranial portion of the mass on 07/20/2018. 2. She then underwent radiation, completed on 09/02/2018 to a total dose of 5000 cGy. 3. She has persistent open wound at the biopsy site. 4. She had associated IgG lambda monoclonal protein in the serum and 2% monoclonal plasma cells in the bone marrow, consistent with underlying myeloma. Initially it appeared to otherwise not be symptomatic. 5. She was found to have pulmonary emboli by CT pulmonary angiogram on 09/14/2018. She began anticoagulation with apixaban. Her other medical illnesses include: 6. Degenerative arthritis and degenerative disease of the spine with associated cervical and lumbar spinal stenosis. 7. Hypertension. 8. Endometriosis. 9. Anxiety/depression. During subsequent followup she had increasing pain in the left hip/buttock area. Her repeat protein electrophoresis studies showed only a slight increase in her M protein, but her repeat PET/CT on 02/03/2019 showed significant progression of lytic bone involvement in the left ilium. There was also possible involvement in the distal right femur. The area of lytic involvement in the calvarium was not metabolically active. On 02/23/2019 she began cycle 1 of Velcade/Revlimid/dexamethasone. She also was given an infusion of Zometa for the lytic bone involvement. Her treatment was complicated by [employer] toxicity and hypocalcemia. Her Velcade was put on hold. She stopped the Revlimid and dexamethasone as of 03/02/2019. At that point she was still having significant pain associated with the lytic bone involvement in the left ileum. During subsequent follow-up, the hypocalcemia improved. As of 03/09/2019 she was able to restart treatment with dose reductions in the Revlimid and dexamethasone. She had remained mildly anemic, but that appeared to be due to iron deficiency. As of her cycle 2 day 15 visit, she appeared to be doing well, and she continued to her treatment as scheduled. Subsequent to that visit, she developed severe diarrhea, and her treatment was put on hold. She continued with cycle 3 on 05/05/2019. She was given a further reduction in the Revlimid dosage to 10 mg daily on a day schedue with the Velcade and dexamethasone dosed weekly. Her treatment was put on hold at day 8 due to worsening neuropathy. She subsequently was able to continue treatment with Revlimid/dexamethasone, but the Velcade remained on hold. She then continued with cycle 4 on 06/21/2019. As of her follow-up visit on 07/19/2019 her treatment was put on hold due to multiple complaints, the most significant being increased fatigue and excessive somnolence. A subsequent restaging PET/CT showed no active sites of involvement. She continued, though, to have severe fatigue/somnolence despite adjustments in her medication regimen. She also continued to have significant musculoskeletal pain, and she had a persistent open wound in the area of the vertex of her scalp. Her repeat head MRI on 08/10/2019 showed no evidence of recurrent or progressive disease. With those findings, her treatment was transitioned to maintenance Revlimid at 5 mg daily, which she started following her visit on 08/17/2019. As of her followup visit on 11/28/2019 she appeared to be tolerating the maintenance Revlimid with acceptable toxicity, and there had been no obvious progression of the myeloma. During that time she was found to have B12 deficiency, and she had been showing some improvement with B12 replacement. However, at that point she still had mild anemia, and her transferrin saturation and ferritin levels were consistent with iron deficiency despite the fact that she had been on oral iron supplementation. She was given parenteral iron replacement with 2 infusions of Injectafer. She also was given denosumab 120 mg by ssubcutaneous injection for the lytic bone involvement. On 12/06/2019 she was admitted to the hospital with symptomatic hypocalcemia. She also had hypokalemia and hypophosphatemia. It is uncertain to what extent those abnormalities were due to the Injectafer, to the denosumab, or both. However, she has persistent symptomatic hypocalemia despite having had IV or oral calcium replacement. Plan: She will stop her maintenance Revlimid when she finishes her current supply. She will be given further IV calcium replacement together with IV potassium phosphate today and again on Thursday and Thursday. She will be scheduled for a followup visit in 1 week. Signed By: Ruiz Rodriguez M.D. <<Signature on File>>
== END 2019-12-14 23:59 | disposition home or self-care (01) ==
LOC: ONCMED 05:48
PROVIDERS: Internal Medicine Medical Oncology; Student in an Organized Health Care Education/Training Program; Family Provider Electrodiagnostic Medicine; PCP Electrodiagnostic Medicine; Visit Provider Nurse Practitioner
DX: E83.51 Hypocalcemia (principal); C90.00 Multiple myeloma not having achieved remission; I10 Essential (primary) hypertension; M19.90 Unspecified osteoarthritis, unspecified site; M48.02 Spinal stenosis, cervical region; M48.061 Spinal stenosis, lumbar region without neurogenic claudication; F41.8 Other specified anxiety disorders; G47.33 Obstructive sleep apnea (adult) (pediatric); Z79.899 Other long term (current) drug therapy; Z92.3 Personal history of irradiation
CPT/HCPCS: 80053; 82330; 84100; 85025; 96365; 96366; 96367; 99214; J0610; J7050

== ENCOUNTER 2019-12-15 12:17 | Inpatient (IN) | payer MEDICARE, SELFPAY ==
[2019-12-15] VITALS (7 sets, daily range): BP systolic 94–105; BP diastolic 62–67; PULSE 69–87; RESP 16–22; TEMP 36.8–37; O2SAT 92–96; BMI 38.9
--- NOTE | 2019-12-15 12:40 | ED_ITS ---
Entered by Jesi Freitas, acting as scribe for Funmilayo Jeffries MD, [facility] [place] - SOB/Dyspnea General: Chief Complaint: Shortness of Breath/Dyspnea Stated Complaint: SOB, abnormal labs Time Seen by Provider: 12/15/19 12:41 PFSH ED PFSH: Statuses (acute, chronic, etc) shown below reflect problem list status as previously entered and may not be historically accurate Medical History (Updated 12/07/19 @ 02:07 by Bang Coker RN) Depression (Acute) FHx: cholecystectomy (Acute) Gastroesophageal reflux (Acute) Hypertension (Acute) MRSA (methicillin resistant staph aureus) culture positive (Acute) Multiple myeloma (Acute) Plasmacytoma (Acute) Pulmonary embolism (Acute) Surgical History (Updated 12/07/19 @ 02:07 by Bang Coker RN) History of appendectomy (Acute) Hx of tonsillectomy (Acute) Social History (Updated 12/06/19 @ 16:28 by Anton Zhang MD) Smoking and tobacco status: never smoked Alcohol intake: never Household members: family Housing: House Course Vital Signs: Vital signs: Vital Signs Temperature 98.2 F 12/15/19 12:29 Pulse Rate 74 12/15/19 12:29 Respiratory Rate 20 H 12/15/19 12:29 Blood Pressure 105/63 12/15/19 12:29 Pulse Oximetry 96 12/15/19 12:29 Discharge Plan Discharge Prescriptions: No Action furosemide 40 mg tablet 40 mg PO EVERY OTHER DAY RF: 0 fluoxetine 10 mg tablet 10 mg PO DAILY RF: 0 lorazepam 0.5 mg Tablet 0.5 mg PO DAILY PRN (Reason: Anxiety) RF: 0 pantoprazole 40 mg tablet,delayed release (DR/EC) 40 mg PO BID RF: 0 Regranex 0.01 % Gel 1 applic TOPICAL EVERY OTHER DAY RF: 0 Ventolin HFA 90 mcg/actuation HFA aerosol inhaler 1 puff INHALATION Q4H PRN (Reason: Shortness Of Breath) RF: 0 cyclobenzaprine 5 mg tablet 5 mg PO BID PRN (Reason: Muscle Pain) RF: 0 Revlimid 5 mg capsule 5 mg PO DAILY RF: 0 Eliquis 5 mg tablet 5 mg PO BID RF: 0 calcium carbonate 650 mg calcium (1,625 mg) tablet 650 mg PO BID Qty: 20 RF: 0 potassium chloride 10 mEq capsule, extended release 10 meq PO BID Qty: 30 RF: 0 Coding Level of Care Code ED [facility] Tender Peat for Jess Brown
--- NOTE | 2019-12-15 13:07 | ED_ITS ---
Entered by Jesi Freitas, acting as scribe for HPI - SOB/Dyspnea General: Chief Complaint: Shortness of Breath/Dyspnea Stated Complaint: SOB, abnormal labs Time Seen by Provider: 12/15/19 12:41 Source: patient Mode of arrival: ambulatory Limitations: no limitations History of Present Illness: HPI Narrative: 69 yo female presents to ED with complaints of shortness of breath. The patient states was in about a week ago and has low calcium and potassium. She was at the cancer treatment center and was to get these with IV today but the patient is too short of breath so her PCP was sent to the ED for further evaluation. The patient is having much difficulty breathing. MD elicited complaint: shortness of breath, cough and anxiety Pertinent past history: other (history of blood clot in leg that went to her lung, multiple myeloma, plasmacytoma, malignant meningioma, bone mets) Onset (ago): week(s) (1) Context: recent illness and other (recent chemo therapy (stopped on 12.12.2019), active radiation therapy) Timing: progressively worsening Severity: severe Exacerbating factors: exertion, movement, coughing and talking Relieving factors: oxygen and rest Known history of: other (blood clot in leg that went to her lung, multiple myeloma, plasmacytoma, malignant meningioma, bone mets) Associated symptoms: Reports no associated symptoms, chest pain and extremity pain (left shoulder); Deny abdominal pain, fever(s), nausea, palpitations, polydipsia, polyuria or vomiting Treatment prior to arrival: none Related Data: Home oxygen amount: none Review of Systems General: Reports: 10 or more systems reviewed and unremarkable except in HPI and below Const: Denies: fever, chills or body aches Eyes: Reports: blind spots; Denies: change in vision or blurry vision ENMT: Denies: throat pain, enlarged tonsils, painful swallowing, hoarseness, mouth pain or swelling of lips/tongue Card: Reports: chest pain; Denies: palpitations, irregular heart rhythm, edema or swelling of feet/ankles Resp: Denies: productive cough or non-productive cough GI: Denies: abdominal pain, nausea or vomiting : Denies: flank pain, difficulty urinating, painful urination, urinary frequency, urinary urgency or urinary hesitancy Musc: Reports: extremity pain (left shoulder), joint pain (left shoulder) and limited range of motion; Denies: neck pain, back pain or extremity swelling Skin/Breast: Denies: rash, itching or redness Neuro: Denies: headache, numbness in extremities or weakness in extremities Psych: Denies: sleeping more Endo: Denies: excessive urination, excessive thirst or tired all the time All/Imm: Denies: acute wheezing PFSH ED PFSH: Statuses (acute, chronic, etc) shown below reflect problem list status as previously entered and may not be historically accurate Medical History (Updated 12/15/19 @ 16:59 by Funmilayo Jeffries MD, [facility] [place]) Depression (Acute) FHx: cholecystectomy (Acute) Gastroesophageal reflux (Acute) Hypertension (Acute) MRSA (methicillin resistant staph aureus) culture positive (Acute) Multiple myeloma (Acute) Plasmacytoma (Acute) Pulmonary embolism (Acute) Surgical History (Updated 12/07/19 @ 02:07 by Bang Coker RN) History of appendectomy (Acute) Hx of tonsillectomy (Acute) Social History (Updated 12/06/19 @ 16:28 by Anton Zhang MD) Smoking and tobacco status: never smoked Alcohol intake: never Household members: family Housing: House Physical Exam Const: COMMON NORMALS: no apparent distress, average body habitus, oriented x3, no limitations, alert and well nourished GENERAL APPEARANCE: ill appearing HENMT: COMMON NORMALS: normocephalic, head/scalp atraumatic and moist oral mucous membranes HEAD & SCALP: normocephalic and atraumatic Eye: COMMON NORMALS: PERRL, EOMs intact bilaterally, conjunctivae normal and no scleral icterus CONJUNCTIVA: Yes conjunctivae normal PUPIL: Yes PERRL Neck/C-Spine: COMMON NORMALS: full ROM, supple, no meningeal signs, no JVD and no carotid bruits Chest: COMMONS NORMALS: inspection of chest normal and palpation of chest normal Resp: COMMON NORMALS: normal respiratory effort, no retractions, no use of accessory muscles, clear to auscultation bilaterally and percussion normal AUSCULTATION: clear to auscultation bilaterally PERCUSSION: percussion normal Cardio: COMMON NORMALS: no JVD, regular rate, regular rhythm, S1 normal heart sound, S2 normal heart sound, no gallops, no clicks, no murmurs, no rub and peripheral pulses 2+ throughout RATE: regular rate RHYTHM: regular rhythm HEART SOUNDS: S1 normal and S2 normal PERIPHERAL PULSES: pulses 2+ throughout GI: COMMON NORMALS: normal to inspection, nondistended, normoactive bowel sounds, soft to palpation, non-tender, no hepatosplenomegaly, no masses and no bruits PALPATION: Yes soft and Yes no hepatosplenomegaly : COMMON NORMALS: Yes no CVA tenderness BLADDER/KIDNEY EXAM: Yes no CVA tenderness Back/Pelvis: COMMON NORMALS: no CVA tenderness Extremity: COMMON NORMALS: normal to inspection, full ROM, normal capillary refill, no calf tenderness and no pedal edema Neuro: COMMON NORMALS: oriented x3 SENSORIUM/ORIENTATION: Yes alert MENINGEAL SIGNS: Yes no meningeal signs Skin: COMMON NORMALS: no rashes or lesions noted, no wounds, skin turgor normal, no jaundice, no petechiae and no mottling GENERAL SKIN EXAM: no rashes or lesions noted and turgor normal Course Consultations: Consultation #1: Dr. Zhang, hospitalist who kindly accepted the patient to his service Vital Signs: Vital signs: Vital Signs Temperature 98.4 F 12/15/19 16:52 Pulse Rate 87 12/15/19 16:52 Respiratory Rate 20 H 12/15/19 16:52 Blood Pressure 94/62 12/15/19 16:52 Pulse Oximetry 92 12/15/19 16:52 MDM - SOB/Dyspnea MDM Narrative: Medical decision making narrative: 69-year-old female patient with multiple malignancies including meningioma, plasmacytosis, multiple myeloma who presents to the emergency department after referral from her oncologist office with concerns of electrolyte abnormalities especially hypocalcemia. She was recently admitted for hypocalcemia and hypokalemia. Her calcium levels have been gradually worsening and today they were critically low at 4.9. She received 2 g of intravenous calcium gluconate here in the emergency department. There were no EKG changes. She is admitted to the hospital for further evaluation and management. Medical Records: Attestation: I reviewed the patient's medical records. Lab Data: Attestation: I reviewed the patient's lab results. Labs: Lab Results 12/15/19 12/15/19 12/15/19 Range/Units 13:24 13:24 14:00 WBC 7.1 (4.0-10.0) 10^3/ uL RBC 3.72 L (4.1-5.3) 10^6/u L Hgb 10.4 L (11.5-15.3) g/dL Hct 32.7 L (37.0-47.0) % MCV 87.9 (81-99) fL MCH 28.0 (28.0-34.0) pg MCHC 31.8 (30.0-36.0) g/dL RDW 21.2 H (12.1-15.1) % Plt Count 233 (130-400) 10^3/c mm MPV 12.6 H (7.4-10.4) fL Neut % (Auto) 69.7 % Lymph % (Auto) 14.0 % [place] % (Auto) 13.7 % Eos % (Auto) 0.3 % Baso % (Auto) 1.6 % Neut # (Auto) 5.0 (1.8-7.7) 10^3/u L Lymph # (Auto) 1.0 (0.8-4.8) 10^3/u L [place] # (Auto) 1.0 H (0.2-0.9) 10^3/u L Eos # (Auto) 0.0 (0.0-0.8) 10^3/u L Baso # (Auto) 0.1 (0.0-0.1) 10^3/u L Nucleated RBC % (a uto) 0 % Nucleated RBCs # 0.0 /100WBC Sodium 136 (136-145) mmol/L Potassium 3.8 (3.5-5.1) mmol/L Chloride 102 (98-107) mmol/L Carbon Dioxide 23 (22-29) mmol/L Anion Gap 14.8 (5-19) BUN 8 (8-23) mg/dL Creatinine 0.9 (0.5-0.9) mg/dL GFR Calculation 62.3 L (90-130) mL/min Glucose 150 H (74-106) mg/dL Lactate 1.0 (0.5-2.2) mmol/L Calcium 4.9 L* (8.5-10.5) mg/dL Total Bilirubin 0.2 (0.15-1.2) mg/dL AST 19 (0-32) U/L ALT 13 (0-33) U/L Alkaline Phosphata se 106 H (35-105) IU/L Total Protein 5.9 L (6.6-8.7) g/dL Albumin 3.1 L (3.5-5.2) g/dL Globulin 2.8 (1.3-4.6) g/dL Imaging Data^: CTA Chest: Radiologist's impression: [address] [place] [address] CT Scan Report Signed Patient: Valentin Clark Unit #: [id number] : 1950 Age/Sex: 69 / F ADM Date: 12/15/19 Loc: ER Room/Bed: Attending Dr: Ordering Provider/Ordering MD: Funmilayo Jeffries MD, [facility] [place] Date of Service: 12/15/19 Procedure(s): CT angio chest PE protcl [id number] Accession Number(s): [id number] Report Number: [id number] WS: [id number] CTA scan of the chest with IV contrast. Additional two-dimensional coronal and sagittal reconstruction and MIP images was performed. 12/15/2019 Clinical Data: active malignancy, SOB, prior PE Comparison: CT chest for pulmonary embolus, 09/14/2018. DLP: 509.[address] scans at [facility] use at least one of these dose optimization techniques: automated exposure control; mA and/or kV adjustment per patient size (includes targeted exams where dose is matched to clinical indication); or iterative reconstruction. Findings: The central pulmonary arteries and peripheral pulmonary arteries fill normally with no evidence of intermittent luminal filling defects. No pulmonary embolic disease is noted. There are no nodules or masses in the lungs. There are atelectatic changes in both lung bases more on the left than the right. There are small bilateral pleural effusions. The heart size is large with a small pericardial effusion. The thoracic aorta demonstrates no abnormalities or dilatations. There is no axillary or significant mediastinal adenopathy. The thyroid gland shows normal enhancement. The trachea bifurcates into the bronchi. The upper abdomen shows no no change from before. The thoracic vertebral bodies show osteoarthritic change.. CT/CT angio chest PE protcl [id number] Impression: 1. Negative for pulmonary embolic disease. 2. Small bilateral pleural effusions, mild cardiomegaly and small pericardial effusion. 3. Negative for acute cardiopulmonary disease. 4. Postsurgical changes of the gastroesophageal junction and left upper quadrant are noted Dictated By: Lizett Gupta MD Signed By: Lizett Gupta MD Signed Date/Time: 12/15/19 1520 DD/ EKG Data^: EKG 1: EKG Interpretation Date: 12/15/19 EKG interpretation time: 13:35 Prior EKG tracings: not available for review Interpretation: Sinus rhythm. Heart rate 80 bpm. Normal axis. No ST changes. Discharge Plan Discharge Patient Disposition: Admitted As Inpatient Admit Provider: Anton Zhang Clinical Impression: Hypocalcemia Condition: Stable Interventions: ED Discharge Assessment Last Done: 12/15/19 16:21 Discharge Date/Time: 12/15/19 16:24 Coding Level of Care Code ED Corporate Secretary for Chg Fwd The documentation recorded by the Zena martino Valerie R, accurately reflects the service I personally performed and the decisions made by Mervin mahan Adegoke I, MD, [facility] [place] Dec 15, 2019 12:17
--- NOTE | 2019-12-15 13:22 | ECG_ITS ---
Measurements Intervals [place] Rate: 80 P: 50 NV: 135 QRS: -9 QRSD: 89 T: 0 QT: 434 QTc: 503 SINUS RHYTHM POSSIBLE LEFT ATRIAL ENLARGEMENT [-0.1mV P WAVE IN V1/V2] Compared to ECG 10/15/2019 12:57:11 Sinus bradycardia no longer present Electronically Signed On 12-15-2019 17:36:36 HEALTH PSYCHOLOGIST by Kevin Espinosa M.D. [email or web address]
--- NOTE | 2019-12-15 13:23 | CT_ITS ---
WS: [id number] CTA scan of the chest with IV contrast. Additional two-dimensional coronal and sagittal reconstructio n and MIP images was performed. 12/15/2019 Clinical Data: active malignancy, SOB, prior PE Comparison: CT chest for pulmonary embolus, 09/14/2018. DLP: 509.[address] scans at [facility] use at least one of these dose optimization techniques: automat ed exposure control; mA and/or kV adjustment per patient size (includes targeted exams where dose is matched to clinical indication); or iterative reconstruction. Findings: The central pulmonary arteries and peripheral pulmonary arteries fill normally with no evidence of in termittent luminal filling defects. No pulmonary embolic disease is noted. There are no nodules or masses in the lungs. There are atelectatic changes in both lung bases more on the left than the right. There are small bilateral pleural effusions. The heart size is large with a small pericardial effusion. The thoracic aorta demonstrates no abnormalities or dilatations. There is no axillary or significant mediastinal adenopathy. The thyroid gland shows normal enhancement. The trachea bifurcates into the bronchi. The upper abdomen shows no no change from before. The thoracic vertebral bodies show osteoarthritic change.. CT/CT angio chest PE protcl [id number] Impression: 1. Negative for pulmonary embolic disease. 2. Small bilateral pleural effusions, mild cardiomegaly and small pericardial e ffusion. 3. Negative for acute cardiopulmonary disease. 4. Postsurgical changes of the gastroesophageal junction and left upper quadran t are noted
[2019-12-15 13:46] LABS: Basophils # 0.1 10^3/uL (0.0-0.1); Basophils % 1.6 %; Eosinophils % 0.3 %; Hematocrit 32.7 % (37.0-47.0); Hemoglobin 10.4 g/dL (11.5-15.3); Mean Corpuscular HGB Conc 31.8 g/dL (30.0-36.0); Mean Corpuscular Volume 87.9 fL (81-99); Mean Platelet Volume 12.6 fL (7.4-10.4); Monocytes % 13.7 %; Neutrophils % 69.7 %; Nucleated Red Blood Cells % 0 %; Platelet Count 233 10^3/cmm (130-400); Red Blood Count 3.72 10^6/uL (4.1-5.3); Red Cell Distribution Width 21.2 % (12.1-15.1); White Blood Count 7.1 10^3/uL (4.0-10.0)
[2019-12-15 13:57] LABS: Alanine Aminotransferase 13 U/L (0-33); Albumin Level 3.1 g/dL (3.5-5.2); Alkaline Phosphatase 106 IU/L (35-105); Anion Gap 14.8 (5-19); Aspartate Amino Transferase 19 U/L (0-32); Blood Urea Nitrogen 8 mg/dL (8-23); Carbon Dioxide 23 mmol/L (22-29); Chloride 102 mmol/L (98-107); Globulin 2.8 g/dL (1.3-4.6); Glomerular Filtration Rate 62.3 mL/min (90-130); Glucose 150 mg/dL (74-106); Potassium 3.8 mmol/L (3.5-5.1); Sodium 136 mmol/L (136-145); Total Bilirubin 0.2 mg/dL (0.15-1.2); Total Protein 5.9 g/dL (6.6-8.7)
[2019-12-15 14:07] LABS: Calcium 4.9 mg/dL (8.5-10.5)
[2019-12-15] MEDS: iohexol 350 mg/mL 100 mL Btl 95 ML IV (15:04)
[2019-12-15] MEDS: ketorolac 30 mg/mL INJ 15 MG IVP (15:18)
[2019-12-15] MEDS: sodium chloride 0.9% 100 ML (15:27)
--- NOTE | 2019-12-15 16:42 | P.HP_ITS ---
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 Patient received iron infusion on December [address] Rodriguez which was Injectafer (ferrous carboxymaltose). Infusion was unremarkable. She presented to the ER on December 06 when she woke up and started having tingling, numbness into her right hand followed by cramping and d eformity of her fingers. In ER she was found to have multiple electrolytes abnormalities with hypocalcemia, hypokalemia, hypophosphatemia and hypomagnesia which were all thought to be as an adverse effect from Injectafer. Patient received multiple rounds of electrolyte replacement. She responded well to the treatment and her potassium, phosphorus came back to be normal while corrected calcium for albumin was low normal. Patient is being discharged home on oral supplementation for potassium and calcium and is advised to follow-up with Dr. Rodriguez in 1 week. Patient has been sent back to the ER from primary care's office after she had gone to as a follow-up. In the primary care's office patient was found to be very short of breath so she was sent to the ER. Patient states she saw Dr. Maco martel earlier this week and was taken off Revlimid because of continued hypocalcemia. In the ER she was found to have a calcium of 4.9 so hospital service was sought. Patient states she has been having these spells of palpitations for last 2 months whenever she would lie down to go to sleep. But these episodes have become more frequent since her last discharge and electrode abnormalities. The spells of palpitations now are also associated with shortness of breath which makes her wake up at night gasping for air. Shortness of breath associated with mild dizziness, orthopnea and PND. Patient also states she was taking Lasix every other day which was stopped by Dr. Rodriguez earlier this week. Patient states her episodes have been more frequent since Lasix was taken away. She states today in the morning she almost felt as if she has an elephant standing on top of her chest causing her to have chest pressures when she was having 1 of her episodes of palpitations and difficulty in breathing. She denies of any nausea, vomiting, headache, dizziness, fever, flu like symptoms, abdominal pain, dysuria, change in her bowel movements. Review of Systems Const: Denies: fever, chills, body aches, change in appetite, malaise, night sweats, diaphoresis, change in sleep pattern, daytime sleepiness or snoring Eyes: Denies: change in vision, blurry vision, photophobia, eye discomfort or eye discharge ENMT: Denies: throat pain, enlarged tonsils, hoarseness, mouth pain, oral sor es/lesions, dry mouth, tinnitus, nasal congestion or post nasal drip Card: Denies: chest pain, palpitations, irregular heart rhythm, edema, swell ing of feet/ankles, lightheadedness, syncope, pre-syncope, shortness of breath on exertion, shortness of breath when lying down, leg pain with exertion or bluish discoloration of hands/feet Resp: Denies: shortness of breath, productive cough, non-productive cough, wheezing, stridor, pain on inspiration, change in phlegm color, coughing up bloo d or chest congestion GI: Denies: abdominal pain, nausea, vomiting, vomiting blood, coffee grounds in vomit, difficulty swallowing, heartburn/indigestion, diarrhea, constipation, bloating, cramping, change in bowel habits, painful bowel movements, blood in stool or black tarry stool : Denies: flank pain, painful urination, urinary frequency, urinary urgency, urinary hesitancy, nighttime urination or blood in urine Musc: Denies: neck pain, back pain, extremity pain, joint pain, joint swelling, redness, joint stiffness or limited range of motion Neuro: Denies: headache, numbness in extremities, weakness in extremities, changes in sensation, lack of coordination, difficulty walking, frequent falls, dizziness, vertigo, confusion, slurred speech, difficulty communicating thoughts or seizure-like activity Psych: Denies: anxiety, depression, mood swings, panic attacks, hopelessness or irritability Endo: Denies: excessive urination, excessive thirst, tired all the time, cold intolerance, excessive sweating, flushing or heat intolerance Justin/Lymph: Denies: easy bruising or easy bleeding All/Imm: Denies: tongue swelling, facial swelling or acute wheezing Medications/Allergies Allergies Allergy/AdvReac Type Severity Reaction Status Date / Time ferric carboxymaltose Allergy Severe Unknown Verified 12/07/19 14:03 [From Injectafer] buspirone [From BuSpar] Allergy ADR-Chest Verified 12/06/19 12:36 Pain codeine Allergy ADR-Nausea Verified 12/06/19 12:36 levofloxacin [From Levaquin] Allergy ADV-Weaknes Verified 12/06/19 12:36 s morphine Allergy ADR-Nausea Verified 12/06/19 12:36 PFSH Acute PFSH: Statuses (acute, chronic, etc) shown below reflect problem list status as previously entered and may not be historically accurate Medical History (Updated 12/15/19 @ 17:26 by Anton Zhang MD) Depression (Acute) FHx: cholecystectomy (Acute) Gastroesophageal reflux (Acute) Hypertension (Acute) MRSA (methicillin resistant staph aureus) culture positive (Acute) Multiple myeloma (Acute) Plasmacytoma (Acute) Pulmonary embolism (Acute) Surgical History (Updated 12/07/19 @ 02:07 by Bang Coker RN) History of appendectomy (Acute) Hx of tonsillectomy (Acute) Social History (Updated 12/06/19 @ 16:28 by Anton Zhang MD) Smoking and tobacco status: never smoked Alcohol intake: never Household members: family Housing: House Vitals/I&O/Wt Last Vital Signs Temp 98.2 F 12/15/19 12:29 Pulse 75 12/15/19 16:21 Resp 22 H 12/15/19 16:21 BP 104/64 12/15/19 16:21 Pulse Ox 96 12/15/19 16:21 Weight last 48 hrs Weight 99.79 kg Physical Exam Narrative: EXAM NARRATIVE: General: No acute distress, AO x3 HEENT: PERRLA, pupils bilaterally equal and reactive Chest: Normal vesicular breath sounds, no added sounds, equal good air entry bilaterally CVS: S1-S2 regular, no murmurs, no tachycardia, no gallops, no rubs Abdomen: Soft, nontender, no organomegaly, bowel sounds present Neuro: No focal deficits, no facial deformity, AO x3, power 5/5 in all limbs Data : 12/15/19 13:24 12/15/19 13:24 Micro: Microbiology 12/15/19 14:00 Blood Culture - Preliminary Blood SPECIMEN COLLECTED 12/15/19 13:24 Blood Culture - Preliminary Blood SPECIMEN COLLECTED A&P Assessment and plan (1) Hypocalcemia: Status: Acute Code(s): E83.51 - Hypocalcemia (2) Shortness of breath: Status: Acute Code(s): R06.02 - Shortness of breath (3) Palpitations: Status: Acute Code(s): R00.2 - Palpitations (4) Hypertension: Status: Acute Code(s): I10 - Essential (primary) hypertension Additional A&P Information Hypocalcemia secondary to Revlimid.: Revlimid has been discontinued earlier this week. Last dose was on Thursday. Corrected calcium 5.5 today. Already received 4 g of calcium in the ER. Check stat magnesium and phosphorous. We will replete 2 g of calcium more along with 2 g of magnesium. Check BMP and magnesium at 6 PM and every 6 hours for 3 cycles. Telemetry monitoring. EKG no suggestive of any electrode abnormality. Shortness of breath: Patient has been taken off Lasix recently because of low blood pressures. Patient has a history of DVT and PE. Patient most likely has sleep apnea as well. Patient is undergoing sleep study as an outpatient. 20 mg IV Lasix stat. Daily input and output charting. Oxygen supplementation keeping saturation over 92%. Telemetry CTA chest to rule out PE. Echocardiogram stat as x-ray suggestive of mild pericardial effusion to rule out tamponade. Though examination is not suggestive of tamponade physiology. CPAP nightly. Given her symptoms of possible unstable angina: Patient has been complaining of chest heaviness. EKG not suggestive of any ischemia. We will cycle fifth generation troponins. We will start her on oxygen. Aspirin 324 mg stat followed by 81 mg daily. We will check lipid panel tomorrow morning. Morphine as needed. Patient is already been put on oxygen. Hypertension: Patient's blood pressure has been on the lower side recently. We will hold off on antihypertensives for now. Continue to monitor blood pressure. Hold off on home dose of Benzapril. History of DVT with pulmonary embolism: Patient is complaining of cramps in her right leg since 2 weeks. Check lower limb Dopplers. Continue home dose of Eliquis. Full code Eliquis for also for DVT prophylaxis Cardiac diet. Attestations Medical Necessity Statement*: Needs admission for more than 2 midnights for hypocalcemia and shortness of breath most likely due to congestive heart failure. Time Spent in Patient Care: Greater than 35 minutes (>than 50% of time spent in counselling and/or direct pt care on unit) . Coding Level of Care Code Acute Food Preparation Worker for Chg Fwd Diagnoses Hypocalcemia E83.51 Shortness of breath R06.02 Palpitations R00.2 Hypertension I10
[2019-12-15 17:21] LABS: Magnesium 1.4 mg/dL (1.7-2.3); Phosphorus 0.9 mg/dL (2.5-4.5)
--- NOTE | 2019-12-15 17:23 | USCV_ITS ---
Eduardo Neilhailee Age: 69 Gender: F : 1950 Exam Date: 12/15/2019 17:45 Ordering Phys: Anton Zhang MD Technologist: Constance Yanez [place] [facility] [place]: PERICARDIAL EFFUSION BP: / HR: 83 Rhythm: Sinus Technical Quality: TDS MEASUREMENTS (Male / Female) Normal Values 2D ECHO LV Diastolic Diameter PLAX 4.5 cm 4.2 - 5.9 / 3.9 - 5.3 cm LV Systolic Diameter PLAX 4.0 cm LV Chamber Size 3.7 cm IVS Diastolic Thickness 1.5 cm 0.6 - 1.0 / 0.6 - 0.9 cm IVS Systolic Thickness 1.5 cm LVPW Diastolic Thickness 1.8 cm 0.6 - 1.0 / 0.6 - 0.9 cm LVPW Systolic Thickness 2.0 cm RV Chamber Size 3.4 cm LVOT Diameter 2.1 cm LV Ejection Fraction 2D Teich 22.8 % LA Diameter 5.2 cm LA Width 2.8 cm LA Height 4.2 cm RA Width 2.8 cm RA Height 3.4 cm Aorta at Sinotubular Diameter 2.6 cm M-MODE LV Diastolic Diameter MM 6.9 cm 4.2 - 5.9 / 3.9 - 5.3 cm LV Systolic Diameter MM 4.2 cm LV Ejection Fraction MM Teich 67.8 % IVS Diastolic Thickness MM 1.0 cm 0.6 - 1.0 / 0.6 - 0.9 cm IVS Systolic Thickness MM 1.9 cm LVPW Diastolic Thickness MM 1.4 cm 0.6 - 1.0 / 0.6 - 0.9 cm LVPW Systolic Thickness MM 2.5 cm RV Diastolic Diameter MM 0.9 cm Aortic Annulus Diameter 3.2 cm LA Ao Ratio MM 1.6 MV E Point Septal Separation 0.5 cm DOPPLER AV Peak Velocity 166.0 cm/s LVOT Peak Velocity 116.0 cm/s AV Area Cont Eq vti 2.6 cm squared AV Area Cont Eq pk 2.4 cm squared MV Area PHT 5.6 cm squared Mitral E to A Ratio 1.3 MV E' Velocity 11.0 cm/s Mitral E to MV E' Ratio 8.1 Mitral E to LV E' Lateral Ratio 6.9 Mitral E to LV E' Septal Ratio 9.8 TR Peak Velocity 201.3 cm/s TR Peak Gradient 16.2 mmHg TR Mean Velocity 171.2 cm/s TR Mean Gradient 12.1 mmHg TR Velocity Time Integral 59.9 cm TV Peak E Velocity 53.0 cm/s Right Atrial Pressure 5.0 mmHg Pulmonary Artery Systolic Pressu 21.2 mmHg PV Peak Velocity 76.0 cm/s RV Acceleration Time 0.2 s RV Ejection Time 0.3 s RV AcT/ET 0.5 FINDINGS Left Ventricle Poor quality study secondary to body habitus. Probably normal left ventricular size and function. Cannot determine wall motion disturbances or diastolic function. Ejection fraction within normal limits estimated at 55%. Right Ventricle Normal right ventricular size and systolic function. Right Atrium The right atrium is normal in size. Left Atrium The left atrium is normal in size. Mitral Valve Mitral valve not well visualized. Aortic Valve Aortic valve not well visualized. Tricuspid Valve Tricuspid valve not well visualized. Pulmonic Valve Pulmonic valve not well visualized. Pericardium Trivial pericardial effusion. Echocardiographic findings suggest a non hemodynamically significant pericardial effusion. Aorta Normal ascending aorta dimension. CONCLUSIONS Poor quality study secondary to body habitus. Probably normal left ventricular size and function. Cannot determine wall motion disturbances or diastolic function. Ejection fraction within normal limits estimated at 55%. Trivial pericardial effusion. Echocardiographic findings suggest a non hemodynamically significant pericardial effusion. No change from 09/15/2018 Dr. Kevin Espinosa MD (Electronically Signed) Final Date: 15 December 2019 18:50 S
[2019-12-15 17:40] LABS: Troponin(5th) Baseline 77 ng/mL (0-10)
[2019-12-15] MEDS: apixaban 5 mg Tablet PO (18:05)
[2019-12-15] MEDS: FUROsemide 10 mg/mL SDV 2mL 20 MG IVP (18:05)
[2019-12-15] MEDS: aspirin 325 mg Tablet PO (18:20)
[2019-12-15 18:26] LABS: Troponin 5 2HR 73.69 ng/mL (0-10)
[2019-12-15 18:33] LABS: Iron 14 ug/dL (37-145); Magnesium 1.3 mg/dL (1.7-2.3); NT Pro B Type Natriuretic Pept 1726 pg/mL (0-125); Percent Saturation 9.5 % (20-50); Total Iron Binding Capacity 146 mcg/dl; Unsaturated Iron Binding 132 ug/dL (112-347)
[2019-12-15 18:47] LABS: Anion Gap 14.6 (5-19); Blood Urea Nitrogen 8 mg/dL (8-23); Carbon Dioxide 22 mmol/L (22-29); Chloride 104 mmol/L (98-107); Glomerular Filtration Rate 55.1 mL/min (90-130); Glucose 127 mg/dL (74-106); Osmolality Calculated 281 mOsm/kg (285-295); Potassium 3.6 mmol/L (3.5-5.1); Sodium 137 mmol/L (136-145)
[2019-12-15 18:52] LABS: Calcium 5.3 mg/dL (8.5-10.5)
[2019-12-15 19:56] LABS: Influenza A by IFA Negative (Negative); Influenza B by IFA Negative (Negative)
[2019-12-15] MEDS: cyclobenzaprine 10 mg Tablet 5 MG PO (19:56)
[2019-12-15 19:59] LABS: Troponin 5 6HR 69.97 ng/L (0-10)
[2019-12-15 20:00] LABS: Troponin 5 6HR Delta -7.03 ng/L (0-12)
--- NOTE | 2019-12-15 23:09 | ECG_ITS ---
Measurements Intervals [place] Rate: 84 P: 63 GA: 141 QRS: -6 QRSD: 88 T: 10 QT: 418 QTc: 497 SINUS RHYTHM WITH OCCASIONAL SUPRAVENTRICULAR PREMATURE COMPLEXES Compared to ECG 12/15/2019 13:35:24 No significant changes Electronically Signed On 12-16-2019 15:56:38 DENTAL THERAPIST by Kevin Espinosa M.D. [email or web address]
[2019-12-16] VITALS (7 sets, daily range): BP systolic 97–118; BP diastolic 59–75; PULSE 62–91; RESP 16–20; TEMP 36.7–37.4; O2SAT 93–95; BMI 38.9
[2019-12-16 00:52] LABS: Magnesium 1.7 mg/dL (1.7-2.3)
[2019-12-16 00:53] LABS: Anion Gap 12.2 (5-19); Blood Urea Nitrogen 9 mg/dL (8-23); Carbon Dioxide 24 mmol/L (22-29); Chloride 105 mmol/L (98-107); Glomerular Filtration Rate 55.1 mL/min (90-130); Glucose 105 mg/dL (74-106); Osmolality Calculated 282 mOsm/kg (285-295); Potassium 3.2 mmol/L (3.5-5.1); Sodium 138 mmol/L (136-145)
[2019-12-16 01:01] LABS: Calcium 5.5 mg/dL (8.5-10.5)
[2019-12-16 02:45] LABS: Glucose Point of Care 86 mg/dL (70-110)
[2019-12-16 05:22] LABS: Basophils # 0.2 10^3/uL (0.0-0.1); Basophils % 2.6 %; Eosinophils # 0.2 10^3/uL (0.0-0.8); Eosinophils % 2.8 %; Hematocrit 29.7 % (37.0-47.0); Hemoglobin 9.2 g/dL (11.5-15.3); Lymphocytes % 16.7 %; Mean Corpuscular Hemoglobin 27.6 pg (28.0-34.0); Mean Corpuscular Volume 89.2 fL (81-99); Mean Platelet Volume 12.2 fL (7.4-10.4); Monocytes # 0.9 10^3/uL (0.2-0.9); Neutrophils # 3.5 10^3/uL (1.8-7.7); Neutrophils % 61.6 %; Nucleated Red Blood Cells % 0 %; Platelet Count 212 10^3/cmm (130-400); Red Blood Count 3.33 10^6/uL (4.1-5.3); Red Cell Distribution Width 21.2 % (12.1-15.1); White Blood Count 5.8 10^3/uL (4.0-10.0)
[2019-12-16 05:42] LABS: Anion Gap 12.6 (5-19); Blood Urea Nitrogen 9 mg/dL (8-23); Carbon Dioxide 22 mmol/L (22-29); Chloride 107 mmol/L (98-107); Chol HDL Ratio 2.27 mg/dL (0.0-4.40); Cholesterol 134 mg/dL (0-200); Glomerular Filtration Rate 55.1 mL/min (90-130); Glucose 114 mg/dL (74-106); HDL Cholesterol 59 mg/dL (60-100); LDL Cholesterol Calculated 62 mg/dL (50-129); LDL HDL Ratio 1.05 RATIO (0.00-3.22); Osmolality Calculated 283 mOsm/kg (285-295); Potassium 3.6 mmol/L (3.5-5.1); Sodium 138 mmol/L (136-145); Triglycerides 67 mg/dL (0-150)
[2019-12-16 05:44] LABS: Calcium 5.9 mg/dL (8.5-10.5)
[2019-12-16 06:16] LABS: Magnesium 1.9 mg/dL (1.7-2.3)
[2019-12-16] MEDS: aspirin 81 mg EC Tablet PO (09:42)
[2019-12-16] MEDS: apixaban 5 mg Tablet PO ×2 (09:42→18:29)
[2019-12-16] MEDS: calcitriol 0.25 mcg Capsule 0.5 MCG PO (09:43)
[2019-12-16] MEDS: FUROsemide 10 mg/mL SDV 2mL 20 MG IVP (13:42)
[2019-12-16] MEDS: acetaminophen 325 mg Tablet PO ×2 (14:19→18:34)
--- NOTE | 2019-12-16 15:26 | PC.NURSE ---
blood culture 1 in 4 postive for gramstain in chains and pairs.
[2019-12-16] MEDS: magnesium sulfate premix 2 GM/50 ML PIGGYBACK IV (18:29)
[2019-12-16 20:15] LABS: Magnesium 2.2 mg/dL (1.7-2.3)
[2019-12-16 20:18] LABS: Calcium 5.9 mg/dL (8.5-10.5)
[2019-12-16] MEDS: cyclobenzaprine 10 mg Tablet 5 MG PO (22:21)
--- NOTE | 2019-12-16 22:37 | P.PN_ITS ---
Subjective Subjective: Interval history: NO acute events overnight. Continues to feel SOB and requiring 2 L NC to saturate more than 92%. Denies any N/V, cramps, headache, body pains. Labs reviewed. Vitals/I&O/Wt Last Vital Signs Temp 98.9 F 12/16/19 19:47 Pulse 73 12/16/19 19:47 Resp 18 12/16/19 19:47 BP 106/71 12/16/19 19:47 Pulse Ox 93 12/16/19 19:47 12/16/19 12/16/19 12/16/19 06:59 14:59 22:59 Intake Total 70 / 362 840 / 840 170 / 1010 Output Total 1000 / 1999 1300 / 1300 675 / 1975 Balance -930 / -1638 -460 / -460 -505 / -965 Weight last 48 hrs Weight 99.79 kg Weight 99.79 kg Physical Exam Narrative: EXAM NARRATIVE: General: No acute distress, AO x3 HEENT: PERRLA, pupils bilaterally equal and reactive Chest: Normal vesicular breath sounds, no added sounds, equal good air entry bilaterally CVS: S1-S2 regular, no murmurs, no tachycardia, no gallops, no rubs Abdomen: Soft, nontender, no organomegaly, bowel sounds present Neuro: No focal deficits, no facial deformity, AO x3, power 5/5 in all limbs Data : 12/16/19 05:00 12/16/19 05:00 Micro: Microbiology 12/15/19 13:24 Blood Culture - Preliminary Blood Gram positive cocci 12/15/19 14:00 Blood Culture - Preliminary Blood NEGATIVE TO DATE A&P Assessment and plan (1) Hypocalcemia: Status: Acute Code(s): E83.51 - Hypocalcemia (2) Shortness of breath: Status: Acute Code(s): R06.02 - Shortness of breath (3) Palpitations: Status: Acute Code(s): R00.2 - Palpitations (4) Hypertension: Status: Acute Code(s): I10 - Essential (primary) hypertension Additional A&P Information Hypocalcemia secondary to Revlimid.: Revlimid has been discontinued earlier this week. Last dose was on Thursday. Calcium imroving but still low. 2 gm calcium. repeat Ca level in evening. Unfortunately no calcium drip available on formulary. Started on oral supplementation. 2gm mag and recheck with calcium. Telemetry monitoring. EKG no suggestive of any electrode abnormality. Shortness of breath: Patient has been taken off Lasix recently because of low blood pressures. Probnp elevated. Patient has a history of DVT and PE. Patient most likely has sleep apnea as well. Patient is undergoing sleep study as an outpatient. CTA negative. ECHO- Ef 55% without tamponade, with diastolic dysfunction. Most likley cause of SOB is due prolonged hypocalcemia 20 mg IV Lasix stat today as well. 2l Negative yesterday. Daily input and output charting. Oxygen supplementation keeping saturation over 92%. Telemetry CPAP nightly. GPC bacteremia: 1 tout of 4 positive for GPC in chains. Most likley contaminant. Repeat Bcx stat. Will treat with vanc for now until negative Bcx as patient is immunocompromised with multiple myeloma and last revilimid earlier this week. Chest heaviness: Patient has been complaining of chest heaviness. EKG not suggestive of any ischemia. Most likely due to CHF. Tropinins and lipid panel reviewed. Morphine as needed. C/w ASA 81 mg daily. Hypertension: Patient's blood pressure has been on the lower side recently. We will hold off on antihypertensives for now. Continue to monitor blood pressure. Hold off on home dose of Benzapril. History of DVT with pulmonary embolism: Patient is complaining of cramps in her right leg since 2 weeks. Check lower limb Dopplers. Continue home dose of Eliquis. Full code Eliquis for also for DVT prophylaxis Cardiac diet. Attestations Medical Necessity Statement*: Persistent hypocalcemima. Time Spent in Patient Care: 16 - 35 minutes Coding Level of Care Code Acute Industrial Gas Fitter for Chg Fwd Diagnoses Hypocalcemia E83.51 Shortness of breath R06.02 Palpitations R00.2 Hypertension I10
--- NOTE | 2019-12-16 23:23 | PC.PHAR ---
Pharmacokinetic dosing service Date: Time: Objective: Patient: Valentin Clark Floor: 277-1 Age: 69 yo Serum creatinine: 1.0 mg/dL Height: 63.0 Inches Weight (kg): 99.79 Diagnosis: Relevant medical/social history: Cultures and sensitivities: Other labs: Assessment: IBW (kg): 52.40 Dosing wt(kg): 99.79 Estimated Creatinine clearance (ml/min): 44.5 CRCL method: Cockcroft and Gault using ibw(default). Drug selected: Vancomycin Loading dose (mg): 0 Vd (liters): 89.8 (factor used: 0.9 L/kg) Jean-Claude (hr-1): 0.041 Half life (hrs): 16.91 Recommended dose: 1500 mg Interval: 24 hrs Infusion time (hrs): 1.5 Predicted peak (mcg/mL): 25.9 Predicted trough (mcg/mL): 10.30 Total body weight is being used for vancomycin dosing. Renal function is stable [ ] /unstable [ ] Recommendations: Give Vancomycin 1500 mg q 24 hrs with an expected Cpeak of 25.9 mcg/ml and an expected Ctrough of 10.30 mcg/ml Renal dosing of other antibiotics (review renal dosing of other medications and list guidelines here): Thank you for the consult, will continue to follow. Signature: Maia Tuttle [facility]
[2019-12-17] VITALS (8 sets, daily range): BP systolic 92–143; BP diastolic 61–79; PULSE 70–138; RESP 16–20; TEMP 36.5–37.2; O2SAT 94–97
[2019-12-17 02:24] LABS: Procalcitonin 0.13 ng/mL (0-0.5)
[2019-12-17 06:19] LABS: Basophils # 0.2 10^3/uL (0.0-0.1); Basophils % 3.1 %; Eosinophils # 0.1 10^3/uL (0.0-0.8); Eosinophils % 2.9 %; Hematocrit 30.3 % (37.0-47.0); Hemoglobin 9.7 g/dL (11.5-15.3); Lymphocytes # 1.3 10^3/uL (0.8-4.8); Lymphocytes % 25.8 %; Mean Corpuscular Volume 87.6 fL (81-99); Mean Platelet Volume 12.2 fL (7.4-10.4); Monocytes # 0.9 10^3/uL (0.2-0.9); Monocytes % 18.9 %; Neutrophils # 2.4 10^3/uL (1.8-7.7); Neutrophils % 49.1 %; Nucleated Red Blood Cells % 0 %; Platelet Count 247 10^3/cmm (130-400); Red Blood Count 3.46 10^6/uL (4.1-5.3); Red Cell Distribution Width 20.8 % (12.1-15.1); White Blood Count 4.9 10^3/uL (4.0-10.0)
[2019-12-17 06:53] LABS: Alanine Aminotransferase 10 U/L (0-33); Albumin Level 2.7 g/dL (3.5-5.2); Alkaline Phosphatase 99 IU/L (35-105); Anion Gap 12.6 (5-19); Aspartate Amino Transferase 18 U/L (0-32); Blood Urea Nitrogen 10 mg/dL (8-23); Carbon Dioxide 24 mmol/L (22-29); Chloride 105 mmol/L (98-107); Globulin 2.9 g/dL (1.3-4.6); Glomerular Filtration Rate 62.3 mL/min (90-130); Glucose 102 mg/dL (74-106); Potassium 3.6 mmol/L (3.5-5.1); Sodium 138 mmol/L (136-145); Total Bilirubin 0.2 mg/dL (0.15-1.2); Total Protein 5.6 g/dL (6.6-8.7)
[2019-12-17 06:58] LABS: Calcium 5.9 mg/dL (8.5-10.5)
--- NOTE | 2019-12-17 07:57 | PC.NURSE ---
Pt c/o of headache. She is refusing the acetaminophen tablet at this time, preferred to wait to speak with physician about getting 2 tablets.
[2019-12-17] MEDS: aspirin 81 mg EC Tablet PO (09:04)
[2019-12-17] MEDS: calcitriol 0.25 mcg Capsule 0.5 MCG PO (09:04)
[2019-12-17] MEDS: apixaban 5 mg Tablet PO ×2 (09:04→19:59)
[2019-12-17] MEDS: acetaminophen 325 mg Tablet PO (11:50)
--- NOTE | 2019-12-17 13:08 | CTR_ITS ---
PROCEDURE INFORMATION: Exam: CT Neck With Contrast Exam date and time: 12/17/2019 1:31 PM Age: 69 years old Clinical indication: Injury or trauma; Fall; Initial encounter; Abrasion; Additional info: Fall, neck pain TECHNIQUE: Imaging protocol: Computed tomography images of the neck with intravenous contrast. Total DLP: 658.13 mGy-cm Radiation optimization: All CT scans at this facility use at least one of these dose optimization techniques: automated exposure control; mA and/or kV adjustment per patient size (includes targeted exams where dose is matched to clinical indication); or iterative reconstruction. Contrast material: VISIPAQUE 320; Contrast volume: 95 ml; Contrast route: IV; COMPARISON: CT neck wo con [id number] 11/14/2019 10:49 AM FINDINGS: Nasopharynx: Unremarkable. Oropharynx: Unremarkable. No significant tonsillar enlargement. Hypopharynx: Unremarkable Larynx: Unremarkable. Normal epiglottis. Retropharyngeal space: Unremarkable. Submandibular/Parotid glands: Normal. Glands are normal in size. Thyroid: Normal. No enlarged or calcified nodules. Lymph nodes: Unremarkable. No lymphadenopathy. Trachea: Visualized trachea is unremarkable. Lungs: Unremarkable as visualized. Bones/joints: Unchanged. No acute fracture. Incidental congenital fusion of C5-C6. Chronic appearing mild height loss of C3, C4 and C7. Moderate diffuse degenerative changes. Incidental multiple dental caries. Soft tissues: Unremarkable. No significant soft tissue swelling. There is a moderate size pericardial effusion partially imaged. CT/CT neck w con* [id number] IMPRESSION: 1. There is a moderate size pericardial effusion partially imaged. 2. No acute abnormality. Radiation Dose CTDIVOL = (mGy): DLP = 658.13 (mGy-cm)
[2019-12-17] MEDS: FUROsemide 10 mg/mL SDV 4mL 40 MG IVP (14:03)
--- NOTE | 2019-12-17 15:08 | PC.NURSE ---
Pt has been in sinus rhythm throughout the morning. Monitor is now showing pauses, heart rate has dropped as low as 40bpm very briefly. Dr Reynolds on unit, notified. Just continue to observe. Pt resting in bed denies and dizziness or shortness of brath at this time. Pt stated she felt fine.
--- NOTE | 2019-12-17 16:24 | ECG_ITS ---
Measurements Intervals [place] Rate: 136 P: SD: 0 QRS: -14 QRSD: 101 T: -11 QT: 325 QTc: 490 ATRIAL FIBRILLATION WITH RAPID VENTRICULAR RESPONSE ABNORMAL RHYTHM ECG Compared to ECG 12/15/2019 17:59:47 Sinus rhythm no longer present Electronically Signed On 12-18-2019 15:38:49 RESOURCE CONSERVATIONIST by Dick Cordova M.D. [email or web address]
[2019-12-17] MEDS: metoprolol tartrate 1 mg/1 mL SDV 5 mL 5 MG IV (16:35)
[2019-12-17 16:44] LABS: Alanine Aminotransferase 11 U/L (0-33); Alkaline Phosphatase 104 IU/L (35-105); Anion Gap 11.7 (5-19); Aspartate Amino Transferase 19 U/L (0-32); Blood Urea Nitrogen 10 mg/dL (8-23); Calcium 6.7 mg/dL (8.5-10.5); Carbon Dioxide 27 mmol/L (22-29); Chloride 107 mmol/L (98-107); Globulin 3.1 g/dL (1.3-4.6); Glomerular Filtration Rate 55.1 mL/min (90-130); Glucose 110 mg/dL (74-106); Magnesium 1.8 mg/dL (1.7-2.3); Phosphorus 1.9 mg/dL (2.5-4.5); Potassium 3.7 mmol/L (3.5-5.1); Sodium 142 mmol/L (136-145); Total Bilirubin 0.2 mg/dL (0.15-1.2); Total Protein 6.1 g/dL (6.6-8.7)
[2019-12-17 16:46] LABS: Calcium 6.3 mg/dL (8.5-10.5)
[2019-12-17 17:05] LABS: 25 Hydroxy Vitamin D 21 ng/mL (30-100)
[2019-12-17] MEDS: metoprolol tartrate 25 mg Tablet PO (17:19)
[2019-12-17] MEDS: acetaminophen 325 mg Tablet 650 MG PO (17:25)
--- NOTE | 2019-12-17 17:30 | PM.PN ---
Subjective Subjective: Interval history: This morning patient has complaints of shortness of breath, still requiring up to 2 L nasal cannula, shortness or [place] of breath with exertion, but significantly improved, no lightheadedness, no dizziness, no chest pain, no shortness of breath, no bloody or black stools Vitals/I&O/Wt Last Vital Signs Temp 97.7 F 12/17/19 15:24 Pulse 87 12/17/19 15:59 Resp 16 12/17/19 15:59 BP 143/79 12/17/19 15:24 Pulse Ox 95 12/17/19 15:59 12/17/19 12/17/19 12/17/19 06:59 14:59 22:59 Intake Total 250 / 1260 340 / 340 71.82 / 411.82 Output Total 300 / 2275 Balance -50 / -1015 340 / 340 71.82 / 411.82 Weight last 48 hrs Weight 103.022 kg Weight 99.79 kg Physical Exam Const: COMMON NORMALS: no apparent distress and oriented x3 HENMT: COMMON NORMALS: normocephalic HEAD & SCALP: normocephalic OTHER: Posterior occipital region, 2 x 2 x 2 cm round open wound, surgical site, has serosanguineous drainage, with bandage on top Neck/C-Spine: COMMON NORMALS: no JVD Resp: COMMON NORMALS: normal respiratory effort, no retractions, no use of accessory muscles and clear to auscultation bilaterally AUSCULTATION: clear to auscultation bilaterally Cardio: COMMON NORMALS: no JVD, regular rate, regular rhythm, S1 normal heart sound and S2 normal heart sound RATE: regular rate RHYTHM: regular rhythm HEART SOUNDS: S1 normal and S2 normal GI: COMMON NORMALS: normal to inspection, nondistended, normoactive bowel sounds, soft to palpation, non-tender, no hepatosplenomegaly, no masses and no bruits PALPATION: Yes soft and Yes no hepatosplenomegaly Extremity: COMMON NORMALS: normal capillary refill, no clubbing, cyanosis or edema, no calf tenderness and no pedal edema Neuro: COMMON NORMALS: oriented x3 Psych: COMMON NORMALS: mental status grossly normal Data : 12/17/19 06:03 12/17/19 16:00 Micro: Microbiology 12/15/19 13:24 Blood Culture - Preliminary Blood Strep species, alpha hemolytic 12/17/19 06:07 Blood Culture - Preliminary Blood SPECIMEN COLLECTED 12/17/19 06:03 Blood Culture - Preliminary Blood SPECIMEN COLLECTED 12/15/19 14:00 Blood Culture - Preliminary Blood NEGATIVE TO DATE A&P Assessment and plan (1) Hypocalcemia: -Currently no muscle spasms, no chest pain, QTC 490 ms -Phosphorus 1.9, magnesium 1.8, potassium 3.7 -Vitamin D 21, PTH 6.3 -Calcium improved to 6.7 after 2 g calcium gluconate -We will add vitamin D3, thyroid ultrasound -Added calcium carbonate 1000 mg every 6 hours -Continue telemetry monitoring -Etiology secondary to Revlimid and or Denosmab and/or hypoparathyroidism Status: Acute Code(s): E83.51 - Hypocalcemia (2) Shortness of breath: Status: Acute Code(s): R06.02 - Shortness of breath (3) Palpitations: Status: Acute Code(s): R00.2 - Palpitations (4) Hypertension: Status: Acute Code(s): I10 - Essential (primary) hypertension (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 Patient most likely has sleep apnea as well CTA negative. ECHO- Ef 55% without tamponade, with diastolic dysfunction. Most likley cause of SOB is due prolonged hypocalcemia and Denosmab 40 mg IV Lasix stat today as well Daily input and output charting. Oxygen supplementation keeping saturation over 92%. Telemetry CPAP nightly. GPC bacteremia: 1 tout of 4 positive for GPC in chains. Most likley contaminant. Repeat Bcx stat. Will treat with vanc for now until negative Bcx as patient is immunocompromised with multiple myeloma and last revilimid earlier this week. Chest heaviness: Patient has been complaining of chest heaviness. EKG not suggestive of any ischemia. Most likely due to CHF. Tropinins and lipid panel reviewed. Morphine as needed. C/w ASA 81 mg daily. Hypertension: Continue home medications History of DVT with pulmonary embolism: Patient is complaining of cramps in her right leg since 2 weeks. Continue home dose of Eliquis. Full code Eliquis for also for DVT prophylaxis Cardiac diet. Attestations Medical Necessity Statement*: Requires continued hospitalization due to acute hypocalcemia Coding Level of Care Code Acute Golf Course Starter for Chg Fwd Diagnoses Hypocalcemia E83.51 Shortness of breath R06.02 Palpitations R00.2 Hypertension I10 Astrocytoma C71.9
[2019-12-17 17:34] LABS: Parathyroid Hormone 309.4 pg/mL (15-65)
[2019-12-17] MEDS: iodixanol 320 mg/mL 100mL Btl IV (18:11)
[2019-12-17] MEDS: cholecalciferol (vitamin D3) 1,000 unit Tablet 2000 UNIT PO (19:03)
[2019-12-17] MEDS: calcium carbonate 500 mg Chew Tablet 1000 MG PO (19:05)
[2019-12-17] MEDS: fluoxetine 10 mg Capsule 30 MG PO (19:59)
[2019-12-18] VITALS (8 sets, daily range): BP systolic 90–105; BP diastolic 53–64; PULSE 62–86; RESP 16–18; TEMP 36.6–37.1; O2SAT 91–95
[2019-12-18] MEDS: calcium carbonate 500 mg Chew Tablet 1000 MG PO ×5 (00:55→23:51)
[2019-12-18 04:00] LABS: Ionized Calcium 0.8 mmol/L (1.1-1.4)
[2019-12-18] MEDS: acetaminophen 325 mg Tablet 650 MG PO ×2 (06:01→16:39)
[2019-12-18 06:17] LABS: Basophils # 0.2 10^3/uL (0.0-0.1); Basophils % 3.3 %; Eosinophils # 0.3 10^3/uL (0.0-0.8); Eosinophils % 5.9 %; Hematocrit 30.8 % (37.0-47.0); Hemoglobin 9.7 g/dL (11.5-15.3); Lymphocytes # 1.5 10^3/uL (0.8-4.8); Lymphocytes % 29.5 %; Mean Corpuscular HGB Conc 31.5 g/dL (30.0-36.0); Mean Corpuscular Hemoglobin 28.8 pg (28.0-34.0); Mean Corpuscular Volume 91.4 fL (81-99); Mean Platelet Volume 11.9 fL (7.4-10.4); Monocytes # 0.8 10^3/uL (0.2-0.9); Monocytes % 15.3 %; Neutrophils # 2.3 10^3/uL (1.8-7.7); Neutrophils % 45.8 %; Nucleated Red Blood Cells % 0 %; Platelet Count 257 10^3/cmm (130-400); Red Blood Count 3.37 10^6/uL (4.1-5.3); Red Cell Distribution Width 20.8 % (12.1-15.1); White Blood Count 5.1 10^3/uL (4.0-10.0)
[2019-12-18 06:43] LABS: Alanine Aminotransferase 12 U/L (0-33); Albumin Level 2.5 g/dL (3.5-5.2); Alkaline Phosphatase 88 IU/L (35-105); Anion Gap 14.7 (5-19); Aspartate Amino Transferase 22 U/L (0-32); Blood Urea Nitrogen 7 mg/dL (8-23); Carbon Dioxide 25 mmol/L (22-29); Chloride 107 mmol/L (98-107); Glomerular Filtration Rate 71.3 mL/min (90-130); Glucose 90 mg/dL (74-106); Magnesium 1.5 mg/dL (1.7-2.3); Phosphorus 1.9 mg/dL (2.5-4.5); Potassium 3.7 mmol/L (3.5-5.1); Sodium 143 mmol/L (136-145); Total Bilirubin 0.2 mg/dL (0.15-1.2); Total Protein 5.5 g/dL (6.6-8.7)
[2019-12-18 06:49] LABS: Calcium 5.9 mg/dL (8.5-10.5)
--- NOTE | 2019-12-18 07:00 | XRR_ITS ---
PROCEDURE INFORMATION: Exam: XR Chest, 1 View Exam date and time: 12/18/2019 6:37 AM Age: 69 years old Clinical indication: Shortness of breath; Prior surgery; Surgery date: 6+ months; Surgery type: Gb, appy; Additional info: SOB TECHNIQUE: Imaging protocol: XR of the chest Views: 1 view. COMPARISON: CR Chest 1 [place] [id number] 10/15/2019 12:07 PM FINDINGS: Lungs: Mild airspace consolidation within the left lung base. Small left pleural effusion. Pleural space: See Lungs Finding. Heart/Mediastinum: Cardiac silhouette is enlarged. Bones/joints: Unremarkable. XR/XR chest 1V portable [id number] IMPRESSION: Mild airspace consolidation within the left lung base. Small left pleural effusion.
[2019-12-18] MEDS: cholecalciferol (vitamin D3) 1,000 unit Tablet 2000 UNIT PO (09:57)
[2019-12-18] MEDS: aspirin 81 mg EC Tablet PO (09:57)
[2019-12-18] MEDS: apixaban 5 mg Tablet PO ×2 (09:58→20:57)
[2019-12-18] MEDS: metoprolol tartrate 25 mg Tablet PO (09:59)
[2019-12-18] MEDS: calcitriol 0.25 mcg Capsule 0.5 MCG PO (11:43)
--- NOTE | 2019-12-18 11:50 | PC.NURSE ---
informed pharmacy on Magnesium Iv ordered They said they are making it.
[2019-12-18] MEDS: magnesium sulfate premix 4 GM/100 ML PREMIX IV (12:05)
--- NOTE | 2019-12-18 12:05 | DCPLANNER ---
Pg 2 of IM explained to and signed by pt. She usually isn't in the hospital this long and says this is the first time she heard of this that she can remember. No questions, copy provided.
[2019-12-18] MEDS: FUROsemide 10 mg/mL SDV 4mL 40 MG IVP (14:37)
[2019-12-18 15:29] LABS: Phosphorus 0.9 mg/dL (2.5-4.5)
[2019-12-18] MEDS: lidocaine 1% INJ 20 mL 5 ML IV (16:11)
[2019-12-18] MEDS: metoprolol tartrate 25 mg Tablet 12.5 MG PO (17:24)
[2019-12-18] MEDS: fluoxetine 10 mg Capsule 30 MG PO (17:24)
[2019-12-18] MEDS: magnesium oxide 400 mg tablet 800 MG PO (17:24)
[2019-12-18] MEDS: phosphorus 250 mg Tablet 500 MG PO (17:26)
--- NOTE | 2019-12-18 17:40 | USR_ITS ---
PROCEDURE INFORMATION: Exam: US Soft Tissue Head and Neck, Thyroid Exam date and time: 12/18/2019 9:34 AM Age: 69 years old Clinical indication: Other: Hypocalcemia; Additional info: Evaluate parathyroid TECHNIQUE: Imaging protocol: Real-time ultrasound scan of the neck with image documentation. Exam focused on the thyroid. COMPARISON: CT neck w con* [id number] 12/17/2019 6:15 PM FINDINGS: Right thyroid lobe: Right lobe 3.9 x 1.7 x 1.1 cm. Small colloid cyst 3 mm. Heterogeneous. Left thyroid lobe: Left lobe 3.3 x 2.1 x 1.3 cm. Hypoechoic nodule of approximately 1 cm. Heterogeneous. Juxta thyroid mass is not visualized. Isthmus: No nodules. US/US thyroid [id number] IMPRESSION: Small thyroid nodule on the left. Juxta thyroid mass is not visualized. Consider parathyroid imaging.
--- NOTE | 2019-12-18 18:19 | P.PN_ITS ---
Subjective Subjective: Interval history: This morning patient states that she is doing better, her shortness of breath has improved, she still concerned that her electrolytes are low, no lightheadedness, no dizziness, no nausea, no vomiting Vitals/I&O/Wt Last Vital Signs Temp 98.0 F 12/18/19 15:29 Pulse 62 12/18/19 15:29 Resp 16 12/18/19 15:29 BP 100/58 12/18/19 15:29 Pulse Ox 94 12/18/19 15:29 12/18/19 12/18/19 12/18/19 06:59 14:59 22:59 Intake Total 650 / 1761.82 1200 / 1200 70 / 1270 Output Total 250 / 250 Balance 400 / 1511.82 1200 / 1200 70 / 1270 Weight last 48 hrs Weight 103.022 kg Physical Exam Const: COMMON NORMALS: no apparent distress and oriented x3 HENMT: COMMON NORMALS: normocephalic HEAD & SCALP: normocephalic OTHER: Posterior occipital region, 2 x 2 x 2 cm round open wound, surgical site, has serosanguineous drainage, with bandage on top Neck/C-Spine: COMMON NORMALS: no JVD Resp: COMMON NORMALS: normal respiratory effort, no retractions, no use of accessory muscles and clear to auscultation bilaterally AUSCULTATION: clear to auscultation bilaterally Cardio: COMMON NORMALS: no JVD, regular rate, regular rhythm, S1 normal heart sound and S2 normal heart sound RATE: regular rate RHYTHM: regular rhythm HEART SOUNDS: S1 normal and S2 normal GI: COMMON NORMALS: normal to inspection, nondistended, normoactive bowel soun ds, soft to palpation, non-tender, no hepatosplenomegaly, no masses and no bruits PALPATION: Yes soft and Yes no hepatosplenomegaly Extremity: COMMON NORMALS: normal capillary refill, no clubbing, cyanosis or edema, no calf tenderness and no pedal edema Neuro: COMMON NORMALS: oriented x3 Psych: COMMON NORMALS: mental status grossly normal Data : 12/18/19 05:41 12/18/19 05:41 Micro: Microbiology 12/15/19 13:24 Blood Culture - Preliminary Blood Streptococcus viridans group 12/17/19 06:07 Blood Culture - Preliminary Blood NEGATIVE TO DATE 12/17/19 06:03 Blood Culture - Preliminary Blood NEGATIVE TO DATE A&P Assessment and plan (1) Hypocalcemia: -Currently no muscle spasms, no chest pain -Phosphorus 0.9, magnesium 1.5, calcium 5.9 -Vitamin D 21, PTH 309 -We will add vitamin D3, thyroid ultrasound -Added calcium carbonate 1000 mg every 6 hours -Continue telemetry monitoring -Etiology secondary to Revlimid and or Denosmab -Patient received IV replacements of calcium, magnesium, phosphorus -I have started calcium carbonate 1 g every 6 hours -P.o. Mag-Ox -P.o. 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 Patient most likely has sleep apnea as well CTA negative. ECHO- Ef 55% without tamponade, with diastolic dysfunction. Most likley cause of SOB is due prolonged hypocalcemia and Denosmab 40 mg IV Lasix stat today as well Daily input and output charting. Oxygen supplementation keeping saturation over 92%. Telemetry CPAP nightly. GPC bacteremia: 1 tout of 4 positive for GPC in chains. Most likley contaminant. -Blood culture show Streptococcus viridans, likely contaminant -Cardiac echocardiogram shows no evidence of vegetations Chest heaviness: Patient has been complaining of chest heaviness. EKG not suggestive of any ischemia. Most likely due to CHF. Tropinins and lipid panel reviewed. Morphine as needed. C/w ASA 81 mg daily Will need an outpatient stress test His echocardiogram did show a trivial pericardial effusion, I went over this with Dr. Cordova, he ensure me that it is trivial, not hemodynamically significant, unlikely source of patient's symptomatology Hypertension: Continue home medications History of DVT with pulmonary embolism: Patient is complaining of cramps in her right leg since 2 weeks. Continue home dose of Eliquis. Full code Eliquis for also for DVT prophylaxis Cardiac diet. Attestations Medical Necessity Statement*: Patient requires continued hospitalization due to shortness of breath secondary to CHF, hypokalemia, hypomagnesemia, hyp ocalcemia Coding Level of Care Code Acute Inventory Control Clerk for [facility] Fw Diagnoses Hypocalcemia E83.51 Shortness of breath R06.02 Palpitations R00.2 Hypertension I10 Astrocytoma C71.9
[2019-12-19] VITALS (9 sets, daily range): BP systolic 76–108; BP diastolic 48–67; PULSE 67–77; RESP 15–18; TEMP 36.6–37.1; O2SAT 90–94
[2019-12-19 05:08] LABS: Basophils # 0.2 10^3/uL (0.0-0.1); Basophils % 4.4 %; Eosinophils # 0.2 10^3/uL (0.0-0.8); Eosinophils % 4.2 %; Hematocrit 30.8 % (37.0-47.0); Hemoglobin 9.7 g/dL (11.5-15.3); Lymphocytes # 1.4 10^3/uL (0.8-4.8); Lymphocytes % 28.7 %; Mean Corpuscular HGB Conc 31.5 g/dL (30.0-36.0); Mean Corpuscular Hemoglobin 27.6 pg (28.0-34.0); Mean Corpuscular Volume 87.7 fL (81-99); Mean Platelet Volume 11.8 fL (7.4-10.4); Monocytes # 0.8 10^3/uL (0.2-0.9); Monocytes % 16.3 %; Neutrophils # 2.2 10^3/uL (1.8-7.7); Neutrophils % 46.2 %; Nucleated Red Blood Cells % 0 %; Platelet Count 312 10^3/cmm (130-400); Red Blood Count 3.51 10^6/uL (4.1-5.3); Red Cell Distribution Width 20.5 % (12.1-15.1); White Blood Count 4.8 10^3/uL (4.0-10.0)
[2019-12-19] MEDS: calcium carbonate 500 mg Chew Tablet 1000 MG PO ×4 (05:22→23:33)
[2019-12-19 05:24] LABS: Alanine Aminotransferase 13 U/L (0-33); Albumin Level 2.6 g/dL (3.5-5.2); Alkaline Phosphatase 95 IU/L (35-105); Anion Gap 13.5 (5-19); Aspartate Amino Transferase 26 U/L (0-32); Blood Urea Nitrogen 9 mg/dL (8-23); Carbon Dioxide 26 mmol/L (22-29); Chloride 104 mmol/L (98-107); Glomerular Filtration Rate 62.3 mL/min (90-130); Glucose 98 mg/dL (74-106); Magnesium 1.9 mg/dL (1.7-2.3); Potassium 3.5 mmol/L (3.5-5.1); Sodium 140 mmol/L (136-145); Total Bilirubin 0.2 mg/dL (0.15-1.2); Total Protein 5.6 g/dL (6.6-8.7)
[2019-12-19 05:41] LABS: Calcium 5.8 mg/dL (8.5-10.5)
[2019-12-19] MEDS: apixaban 5 mg Tablet PO ×2 (08:18→19:21)
[2019-12-19] MEDS: phosphorus 250 mg Tablet 500 MG PO ×2 (08:18→17:24)
[2019-12-19] MEDS: cholecalciferol (vitamin D3) 1,000 unit Tablet 2000 UNIT PO (08:18)
[2019-12-19] MEDS: calcitriol 0.25 mcg Capsule 0.5 MCG PO (08:18)
[2019-12-19] MEDS: aspirin 81 mg EC Tablet PO (08:18)
[2019-12-19] MEDS: magnesium oxide 400 mg tablet 800 MG PO ×2 (08:19→17:24)
[2019-12-19] MEDS: acetaminophen 325 mg Tablet 650 MG PO (08:31)
--- NOTE | 2019-12-19 10:26 | PM.PN ---
Subjective Subjective: Interval history: Chart reviewed, labs noted. Corrected calcium is 6.9. Patient seen and examined, resting in bed, no apparent distress, discussed lab findings and care plan. She has been having some episodes of loose stool. Medications: Reviewed: Yes Medication Review Details: Current Medications Generic Name Dose Route Start Last Admin Trade Name Freq PRN Reason Stop Dose Admin Acetaminophen 650 mg 12/17/19 13:08 12/19/19 08:31 Tylenol PO 650 mg Q6H PRN Administration MILD PAIN Apixaban 5 mg 12/17/19 20:15 12/19/19 08:18 Eliquis PO 5 mg Q12H FABIENNE Administration Aspirin 81 mg 12/16/19 09:00 12/19/19 08:18 Aspirin Ec PO 81 mg DAILY FABIENNE Administration Calcitriol 0.5 mcg 12/16/19 09:00 12/19/19 08:18 Rocaltrol PO 0.5 mcg DAILY FABIENNE Administration Calcium Carbonate 1,000 mg 12/17/19 17:45 12/19/19 05:22 Tums PO 1,000 mg Q6H FABIENNE Administration Cyclobenzaprine HC l 5 mg 12/15/19 17:45 12/16/19 22:21 Flexeril PO 5 mg BID PRN Administration MUSCLE PAIN Fluoxetine HCl 30 mg 12/17/19 20:00 12/18/19 17:24 Prozac PO 30 mg QPM FABIENNE Administration Furosemide 40 mg 12/17/19 13:15 12/18/19 14:37 Lasix IVP 40 mg Q24H FABIENNE Administration Magnesium Oxide 800 mg 12/18/19 18:00 12/19/19 08:19 Magox PO 800 mg BID FABIENNE Administration Metoprolol Tartrat e 12.5 mg 12/18/19 18:00 12/19/19 08:19 Lopressor PO Not Given BID FABIENNE Potassium Chloride 10 meq 12/16/19 18:00 12/19/19 08:18 Klor-Con 10 PO 10 meq BID FABIENNE Administration Potassium Phosphat e 500 mg 12/18/19 18:00 12/19/19 08:18 Phospha 250 Neut ral PO 500 mg BID FABIENNE Administration Vitamin D 2,000 unit 12/17/19 17:45 12/19/19 08:18 Vitamin D3 PO 2,000 unit DAILY FABIENNE Administration Vitals/I&O/Wt Last Vital Signs Temp 98.2 F 12/19/19 07:27 Pulse 73 12/19/19 07:29 Resp 16 12/19/19 07:29 BP 97/60 12/19/19 07:27 Pulse Ox 91 12/19/19 07:29 12/18/19 12/19/19 12/19/19 22:59 06:59 14:59 Intake Total 709.0909 / 1909.0909 260 / 2169.0909 960 / 960 Output Total 400 / 400 Balance 709.0909 / 1909.0909 -140 / 1769.0909 960 / 960 Weight last 48 hrs Weight 101.196 kg Physical Exam Const: COMMON NORMALS: no apparent distress and oriented x3 GENERAL APPEARANCE: cooperative and comfortable ORIENTATION/CONSCIOUSNESS: Yes awake HENMT: COMMON NORMALS: normocephalic, head/scalp atraumatic, hearing grossly normal bilaterally and moist oral mucous membranes HEAD & SCALP: normocephalic and atraumatic Eye: COMMON NORMALS: PERRL, EOMs intact bilaterally and conjunctivae normal CONJUNCTIVA: Yes conjunctivae normal PUPIL: Yes PERRL Neck/C-Spine: COMMON NORMALS: full ROM GENERAL: Yes normal visual inspection and Yes trachea midline Resp: COMMON NORMALS: normal respiratory effort, no retractions, no use of accessory muscles and clear to auscultation bilaterally EFFORT & INSPECTION: Yes able to speak in complete sentences, Yes symmetric chest movement and No tachypneic AUSCULTATION: clear to auscultation bilaterally Cardio: COMMON NORMALS: regular rate, regular rhythm, S1 normal heart sound, S2 normal heart sound and no murmurs RATE: regular rate RHYTHM: regular rhythm HEART SOUNDS: S1 normal and S2 normal GI: COMMON NORMALS: normal to inspection, nondistended, normoactive bowel sounds, soft to palpation and non-tender PALPATION: Yes soft Extremity: COMMON NORMALS: normal to inspection, full ROM and no clubbing, cyanosis or edema; negative for no pedal edema Neuro: COMMON NORMALS: oriented x3, moves all extremities, no focal motor deficits and no sensory deficits noted Psych: COMMON NORMALS: mental status grossly normal, thought process normal, cooperative, affect normal and speech normal SPEECH: Yes normal speech THOUGHT PROCESS: normal thought process Skin: COMMON NORMALS: no rashes or lesions noted, no jaundice, no petechiae and no mottling GENERAL SKIN EXAM: no rashes or lesions noted Data : 12/19/19 04:45 12/19/19 04:45 Micro: Microbiology 12/15/19 13:24 Blood Culture - Preliminary Blood Streptococcus viridans group 12/17/19 06:07 Blood Culture - Preliminary Blood NEGATIVE TO DATE 12/17/19 06:03 Blood Culture - Preliminary Blood NEGATIVE TO DATE A&P Assessment and plan (1) Hypocalcemia: -continued hypocalcemia -corrected calcium-6.9 -continue to monitor electrolytes -continue KCl, calcium carbonate, phosphate and magnesium replacement -likely medication side effect as was on Revlimid and denosumab, both on hold -noted elevated PTH (309) Status: Acute Code(s): E83.51 - Hypocalcemia (2) Plasmacytoma: -s/p [place] [address] 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 Rodriguez Status: Acute Qualifiers: Multiple myeloma remission status: unspecified Qualified Code(s): C90.00 - Multiple myeloma not having achieved remission Code(s): C90.00 - Multiple myeloma not having achieved remission (4) Pulmonary embolism: -has hx of bilateral PE -continue AC with Eliquis Status: Acute Qualifiers: Pulmonary embolism type: multiple subsegmental (without acute cor pulmonale) Qualified Code(s): I26.94 - Multiple subsegmental pulmonary emboli without acute cor pulmonale Code(s): I26.99 - Other pulmonary embolism without acute cor pulmonale Additional A&P Information -Morbid obesity: BMI-40 kg/m2 -MIRNA on CPAP -blood cx: 11/19 bottles positive for Strep viridans; repeat blood cx negative -noted episodes of atrial fibrillation: on BB, already on Eliquis -SOB: Echo: EF=55%, responded well to dose of Lasix, supplemental oxygen as needed. Trivial pericardial effusion, not hemodynamically significant per cardio -Chest heaviness: no ischemic changes on ECG. Now resolved -HTN -cardiac diet -no need for DVT ppx as on Eliquis -Dispo: home -Code status: FULL code Attestations Medical Necessity Statement*: Patient requires hospitalization for continued electrolyte correction, particularly hypocalcemia. Time Spent in Patient Care: Greater than 35 minutes (>than 50% of time spent in counselling and/or direct pt care on unit). Coding Level of Care Code Acute Work And Family Life Consultant for Chg Fwd Exam Problem Focused Diagnoses Hypocalcemia E83.51 Plasmacytoma C90.30 Plasmacytoma active/remission status: unspecified whether remission achieved Plasmacytoma type: unspecified type Multiple myeloma C90.00 Multiple myeloma remission status: unspecified Pulmonary embolism I26.94 Pulmonary embolism type: multiple subsegmental (without acute cor pulmonale)
--- NOTE | 2019-12-19 12:41 | PC.CHAP ---
Pastoral Care Encounter/Spiritual Assessment Type of Contact [] Declined parachute inspector visit [] Patient/Family/Request visit [] Outpatient visit [x] Follow-up visit [] Physician referral [] Code/Alert [] Routine visit [] Staff referral [] Actively dying [] Patient sleeping [] Family support [] [] Out of room [] Palliative care [] [x] Receiving care in room [] Pre-surgical visit [] Trauma [] Long length of stay [] ICU visit [x] Other: Follow up needed Relational/Emotional Strength [] Patient feels connected with others/family/visitors/staff [] Distress [] Loneliness/isolation [] Abandonment Spirituality of Patient [] Person of Venecia [] Attends Anabaptist of their Venecia [] Believes in Prayer [] Reads Bible or Faith materials [] There are Spiritual issues to be addressed Social Work Faculty Member Interventions [] Prayer [] Active listening [] Non-anxious presence [] Spiritual/emotional support [] Crisis/trauma care [] Spiritual counseling [] Bereavement support [] Provided bereavement packet [] Provided Bible/devotional materials [] Provided toy/stuffed animal, coloring book to patient or family member [] Provided Communion [] Anointing/Greene [] Salvation [] Completed spiritual assessment [] Other: Impact on Illness or Injury [] Angry [] Fearful [] Anxious [] Often cries [] Exhaustion [] Unable to work [] Unable to attend jainism [] Unable to walk/stand [] Unable to read [] Unable to drive [] Unable to eat/drink [] Unable to sleep [] Unable to be with family [] Patient intubated [] Other: Summary Room was full of medical personnel and equipment for patients in both beds. Staff would be present for extended period of time, Attempt another follow up visit. Social Work Faculty Member Riya Rouse Time spent with patient 2 minutes
[2019-12-19] MEDS: FUROsemide 10 mg/mL SDV 4mL 40 MG IVP (12:43)
[2019-12-19] MEDS: fluoxetine 10 mg Capsule 30 MG PO (17:22)
[2019-12-19] MEDS: metoprolol tartrate 25 mg Tablet 12.5 MG PO (17:23)
[2019-12-20] VITALS (7 sets, daily range): BP systolic 102–116; BP diastolic 65–72; PULSE 62–80; RESP 16–18; TEMP 36.1–38; O2SAT 91–96
[2019-12-20 05:18] LABS: Basophils # 0.2 10^3/uL (0.0-0.1); Basophils % 5.2 %; Eosinophils # 0.1 10^3/uL (0.0-0.8); Eosinophils % 2.2 %; Hematocrit 31.3 % (37.0-47.0); Hemoglobin 9.9 g/dL (11.5-15.3); Lymphocytes # 1.5 10^3/uL (0.8-4.8); Lymphocytes % 32.6 %; Mean Corpuscular HGB Conc 31.6 g/dL (30.0-36.0); Mean Corpuscular Hemoglobin 27.5 pg (28.0-34.0); Mean Corpuscular Volume 86.9 fL (81-99); Monocytes # 0.7 10^3/uL (0.2-0.9); Monocytes % 16.2 %; Neutrophils # 1.9 10^3/uL (1.8-7.7); Neutrophils % 43.6 %; Nucleated Red Blood Cells % 0 %; Platelet Count 315 10^3/cmm (130-400); Red Cell Distribution Width 19.9 % (12.1-15.1); White Blood Count 4.5 10^3/uL (4.0-10.0)
[2019-12-20 05:35] LABS: Alanine Aminotransferase 13 U/L (0-33); Albumin Level 2.5 g/dL (3.5-5.2); Alkaline Phosphatase 91 IU/L (35-105); Anion Gap 14.7 (5-19); Aspartate Amino Transferase 18 U/L (0-32); Blood Urea Nitrogen 7 mg/dL (8-23); Carbon Dioxide 27 mmol/L (22-29); Chloride 102 mmol/L (98-107); Globulin 3.2 g/dL (1.3-4.6); Glomerular Filtration Rate 62.3 mL/min (90-130); Glucose 94 mg/dL (74-106); Magnesium 1.7 mg/dL (1.7-2.3); Phosphorus 1.8 mg/dL (2.5-4.5); Potassium 3.7 mmol/L (3.5-5.1); Sodium 140 mmol/L (136-145); Total Bilirubin 0.2 mg/dL (0.15-1.2); Total Protein 5.7 g/dL (6.6-8.7)
[2019-12-20 05:51] LABS: Calcium 5.7 mg/dL (8.5-10.5)
[2019-12-20] MEDS: calcium carbonate 500 mg Chew Tablet 1000 MG PO ×4 (05:53→23:28)
[2019-12-20] MEDS: LORazepam 0.5 mg Tablet PO ×2 (06:39→17:50)
[2019-12-20] MEDS: metoprolol tartrate 25 mg Tablet 12.5 MG PO ×2 (08:49→17:41)
[2019-12-20] MEDS: aspirin 81 mg EC Tablet PO (08:49)
[2019-12-20] MEDS: apixaban 5 mg Tablet PO ×2 (08:49→19:50)
[2019-12-20] MEDS: phosphorus 250 mg Tablet 500 MG PO ×2 (08:50→17:44)
[2019-12-20] MEDS: cholecalciferol (vitamin D3) 1,000 unit Tablet 2000 UNIT PO (08:50)
[2019-12-20] MEDS: magnesium oxide 400 mg tablet 800 MG PO ×2 (08:50→17:41)
[2019-12-20] MEDS: calcitriol 0.25 mcg Capsule 0.5 MCG PO (08:51)
--- NOTE | 2019-12-20 10:12 | PC.SOCIAL ---
IMM update Pg 2 of IMM was updated with patient and a copy was provided. She verbalized understanding and had no questions. Initialed, dated, and timed copy in chart.
--- NOTE | 2019-12-20 10:22 | P.PN_ITS ---
Subjective Subjective: Interval history: AM labs noted, low calcium noted, received 2 gm dose of calcium gluconate. Patient seen and examined, reports feeling quite irritable today, poor sleep overnight. Received a dose of Ativan this morning. Medications: Reviewed: Yes Medication Review Details: Current Medications Generic Name Dose Route Start Last Admin Trade Name Freq PRN Reason Stop Dose Admin Acetaminophen 650 mg 12/17/19 13:08 12/19/19 08:31 Tylenol PO 650 mg Q6H PRN Administration MILD PAIN Apixaban 5 mg 12/17/19 20:15 12/20/19 08:49 Eliquis PO 5 mg Q12H FABIENNE Administration Aspirin 81 mg 12/16/19 09:00 12/20/19 08:49 Aspirin Ec PO 81 mg DAILY FABIENNE Administration Calcitriol 0.5 mcg 12/16/19 09:00 12/20/19 08:51 Rocaltrol PO 0.5 mcg DAILY FABIENNE Administration Calcium Carbonate 1,000 mg 12/17/19 17:45 12/20/19 05:53 Tums PO 1,000 mg Q6H FABIENNE Administration Cyclobenzaprine HC l 5 mg 12/15/19 17:45 12/16/19 22:21 Flexeril PO 5 mg BID PRN Administration MUSCLE PAIN Fluoxetine HCl 30 mg 12/17/19 20:00 12/19/19 17:22 Prozac PO 30 mg QPM FABIENNE Administration Furosemide 40 mg 12/17/19 13:15 12/19/19 12:43 Lasix IVP 40 mg Q24H FABIENNE Administration Lorazepam 0.5 mg 12/20/19 06:29 12/20/19 06:39 Ativan PO 0.5 mg BID PRN Administration ANXIETY Magnesium Oxide 800 mg 12/18/19 18:00 12/20/19 08:50 Magox PO 800 mg BID FABIENNE Administration Metoprolol Tartrat e 12.5 mg 12/18/19 18:00 12/20/19 08:49 Lopressor PO 12.5 mg BID FABIENNE Administration Potassium Chloride 10 meq 12/16/19 18:00 12/20/19 08:49 Klor-Con 10 PO 10 meq BID FABIENNE Administration Potassium Phosphat e 500 mg 12/18/19 18:00 12/20/19 08:50 Phospha 250 Neut ral PO 500 mg BID FABIENNE Administration Vitamin D 2,000 unit 12/17/19 17:45 12/20/19 08:50 Vitamin D3 PO 2,000 unit DAILY FABIENNE Administration Vitals/I&O/Wt Last Vital Signs Temp 98.4 F 12/20/19 07:56 Pulse 62 12/20/19 07:56 Resp 16 12/20/19 07:56 BP 104/65 12/20/19 07:56 Pulse Ox 96 12/20/19 07:56 12/19/19 12/20/19 12/20/19 22:59 06:59 14:59 Intake Total 670 / 2110 280 / 2390 720 / 720 Output Total 850 / 850 Balance 670 / 2110 -570 / 1540 720 / 720 Weight last 48 hrs Weight 99.155 kg Weight 101.196 kg Physical Exam Const: COMMON NORMALS: no apparent distress and oriented x3 GENERAL APPEARANCE: cooperative and comfortable ORIENTATION/CONSCIOUSNESS: Yes awake HENMT: COMMON NORMALS: normocephalic, head/scalp atraumatic, hearing grossly normal bilaterally and moist oral mucous membranes HEAD & SCALP: normocephalic and atraumatic Eye: COMMON NORMALS: PERRL, EOMs intact bilaterally and conjunctivae normal CONJUNCTIVA: Yes conjunctivae normal PUPIL: Yes PERRL Neck/C-Spine: COMMON NORMALS: full ROM GENERAL: Yes normal visual inspection and Yes trachea midline Resp: COMMON NORMALS: normal respiratory effort, no retractions, no use of accessory muscles and clear to auscultation bilaterally EFFORT & INSPECTION: Yes able to speak in complete sentences, Yes symmetric chest movement and No tachypneic AUSCULTATION: clear to auscultation bilaterally Cardio: COMMON NORMALS: regular rate, regular rhythm, S1 normal heart sound, S2 normal heart sound and no murmurs RATE: regular rate RHYTHM: regular rh ythm HEART SOUNDS: S1 normal and S2 normal GI: COMMON NORMALS: normal to inspection, nondistended, normoactive bowel so unds, soft to palpation and non-tender PALPATION: Yes soft Extremity: COMMON NORMALS: normal to inspection, full ROM and no clubbing, cyanosis or edema; negative for no pedal edema Neuro: COMMON NORMALS: oriented x3, moves all extremities, no focal motor deficits and no sensory deficits noted Psych: COMMON NORMALS: mental status grossly normal, thought process normal, cooperative, affect normal and speech normal SPEECH: Yes normal speech THOUGHT PROCESS: normal thought process Skin: COMMON NORMALS: no rashes or lesions noted, no jaundice, no petechiae and no mottling GENERAL SKIN EXAM: no rashes or lesions noted OTHER: open wound noted on R parietal area, clean dressing in place, no active drainage noted Data : 12/20/19 04:40 12/20/19 04:40 A&P Assessment and plan (1) Hypocalcemia: -continued hypocalcemia -corrected calcium-6.9 -continue to monitor electrolytes -continue KCl, calcium carbonate, phosphate and magnesium replacement -likely medication side effect as was on Revlimid and denosumab, both on hold -hold Lasix -noted elevated PTH (309), low ionized calcium Status: Acute Code(s): E83.51 - Hypocalcemia (2) Plasmacytoma: -s/p open [place] [address] 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 Rodriguez Status: Acute Qualifiers: Multiple myeloma remission status: unspecified Qualified Code(s): C90.00 - Multiple myeloma not having achieved remission Code(s): C90.00 - Multiple myeloma not having achieved remission (4) Pulmonary embolism: -has hx of bilateral PE -continue AC with Eliquis Status: Acute Qualifiers: Pulmonary embolism type: multiple subsegmental (without acute cor pulmonale) Qualified Code(s): I26.94 - Multiple subsegmental pulmonary emboli without acute cor pulmonale Code(s): I26.99 - Other pulmonary embolism without acute cor pulmonale Additional A&P Information -Morbid obesity: BMI-39 kg/m2 -MIRNA on CPAP -blood cx: 11/19 bottles positive for Strep viridans; repeat blood cx negative -noted episodes of atrial fibrillation: on BB, already on Eliquis -SOB: Echo: EF=55%, responded well to dose of Lasix, supplemental oxygen as needed. Trivial pericardial effusion, not hemodynamically significant per cardio -Chest heaviness: no ischemic changes on ECG. Now resolved -HTN -cardiac diet -no need for DVT ppx as on Eliquis -Dispo: home -Code status: FULL code Attestations Medical Necessity Statement*: Patient requires hospitalization for continued management of multiple electrolyte abnormalities, primarily hypocalcemia. Time Spent in Patient Care: Greater than 35 minutes (>than 50% of time spent in counselling and/or direct pt care on unit) . Coding Level of Care Code Acute Document Preparation Specialist for Chg Fwd Exam Problem Focused Diagnoses Hypocalcemia E83.51 Plasmacytoma C90.30 Plasmacytoma active/remission status: unspecified whether remission achieved Plasmacytoma type: unspecified type Multiple myeloma C90.00 Multiple myeloma remission status: unspecified Pulmonary embolism I26.94 Pulmonary embolism type: multiple subsegmental (without acute cor pulmonale)
[2019-12-20] MEDS: fluoxetine 10 mg Capsule 30 MG PO (17:42)
[2019-12-21] VITALS (9 sets, daily range): BP systolic 98–122; BP diastolic 62–75; PULSE 66–80; RESP 16–24; TEMP 36.5–37.2; O2SAT 86–93
[2019-12-21] MEDS: acetaminophen 325 mg Tablet 650 MG PO (05:25)
[2019-12-21] MEDS: calcium carbonate 500 mg Chew Tablet 1000 MG PO ×3 (05:25→17:34)
[2019-12-21 05:48] LABS: Anion Gap 11.7 (5-19); Blood Urea Nitrogen 11 mg/dL (8-23); Carbon Dioxide 28 mmol/L (22-29); Chloride 103 mmol/L (98-107); Glomerular Filtration Rate 71.3 mL/min (90-130); Glucose 101 mg/dL (65-115); Magnesium 1.8 mg/dL (1.7-2.3); Osmolality Calculated 284 mOsm/kg (285-295); Phosphorus 1.5 mg/dL (2.5-4.5); Potassium 3.7 mmol/L (3.5-5.1); Sodium 139 mmol/L (136-145)
[2019-12-21 06:02] LABS: Calcium 5.7 mg/dL (8.5-10.5)
[2019-12-21] MEDS: aspirin 81 mg EC Tablet PO (08:30)
[2019-12-21] MEDS: magnesium oxide 400 mg tablet 800 MG PO ×2 (08:31→17:34)
[2019-12-21] MEDS: phosphorus 250 mg Tablet 500 MG PO ×2 (08:31→17:34)
[2019-12-21] MEDS: cholecalciferol (vitamin D3) 1,000 unit Tablet 2000 UNIT PO (08:31)
[2019-12-21] MEDS: calcitriol 0.25 mcg Capsule 0.5 MCG PO (08:31)
[2019-12-21] MEDS: metoprolol tartrate 25 mg Tablet 12.5 MG PO ×2 (08:32→17:32)
[2019-12-21] MEDS: apixaban 5 mg Tablet PO ×2 (08:33→21:19)
--- NOTE | 2019-12-21 09:27 | P.PN_ITS ---
Subjective Subjective: Interval history: Labs noted, corrected calcium remains 6.9. Spiked a temp overnight of 100.4 F, currently afebrile. Had 600 mL urine output overnight. Attempted to see patient twice today, has been quite sleepy throughout the day, per nursing staff, has not been in any distress. Medications: Reviewed: Yes Medication Review Details: Current Medications Generic Name Dose Route Start Last Admin Trade Name Freq PRN Reason Stop Dose Admin Acetaminophen 650 mg 12/17/19 13:08 12/21/19 05:25 Tylenol PO 650 mg Q6H PRN Administration MILD PAIN Apixaban 5 mg 12/17/19 20:15 12/21/19 08:33 Eliquis PO 5 mg Q12H FABIENNE Administration Aspirin 81 mg 12/16/19 09:00 12/21/19 08:30 Aspirin Ec PO 81 mg DAILY FABIENNE Administration Calcitriol 0.5 mcg 12/16/19 09:00 12/21/19 08:31 Rocaltrol PO 0.5 mcg DAILY FABIENNE Administration Calcium Carbonate 1,000 mg 12/17/19 17:45 12/21/19 05:25 Tums PO 1,000 mg Q6H FABIENNE Administration Cyclobenzaprine HC l 5 mg 12/15/19 17:45 12/16/19 22:21 Flexeril PO 5 mg BID PRN Administration MUSCLE PAIN Fluoxetine HCl 30 mg 12/17/19 20:00 12/20/19 17:42 Prozac PO 30 mg QPM FABIENNE Administration Furosemide 40 mg 12/17/19 13:15 12/19/19 12:43 Lasix IVP 40 mg Q24H FABIENNE Administration Lorazepam 0.5 mg 12/20/19 06:29 12/20/19 17:50 Ativan PO 0.5 mg BID PRN Administration ANXIETY Magnesium Oxide 800 mg 12/18/19 18:00 12/21/19 08:31 Magox PO 800 mg BID FABIENNE Administration Metoprolol Tartrat e 12.5 mg 12/18/19 18:00 12/21/19 08:32 Lopressor PO 12.5 mg BID FABIENNE Administration Potassium Chloride 10 meq 12/16/19 18:00 12/21/19 08:32 Klor-Con 10 PO 10 meq BID FABIENNE Administration Potassium Phosphat e 500 mg 12/18/19 18:00 12/21/19 08:31 Phospha 250 Neut ral PO 500 mg BID FABIENNE Administration Vitamin D 2,000 unit 12/17/19 17:45 12/21/19 08:31 Vitamin D3 PO 2,000 unit DAILY FABIENNE Administration Vitals/I&O/Wt Last Vital Signs Temp 98.0 F 12/21/19 07:25 Pulse 66 12/21/19 07:25 Resp 16 12/21/19 07:25 BP 103/62 12/21/19 07:25 Pulse Ox 93 12/21/19 07:25 12/20/19 12/21/19 12/21/19 22:59 06:59 14:59 Intake Total 360 / 1320 720 / 720 Output Total 600 / 600 Balance 360 / 1320 -600 / 720 720 / 720 Weight last 48 hrs Weight 98.43 kg Weight 99.155 kg Physical Exam Const: COMMON NORMALS: no apparent distress and oriented x3 GENERAL APPEARANCE: cooperative and comfortable ORIENTATION/CONSCIOUSNESS: Yes awake HENMT: COMMON NORMALS: normocephalic, head/scalp atraumatic, hearing grossly normal bilaterally and moist oral mucous membranes HEAD & SCALP: normocephalic and atraumatic Eye: COMMON NORMALS: PERRL, EOMs intact bilaterally and conjunctivae normal CONJUNCTIVA: Yes conjunctivae normal PUPIL: Yes PERRL Neck/C-Spine: COMMON NORMALS: full ROM GENERAL: Yes normal visual inspection and Yes trachea midline Resp: COMMON NORMALS: normal respiratory effort, no retractions, no use of accessory muscles and clear to auscultation bilaterally EFFORT & INSPECTION: Yes able to speak in complete sentences, Yes symmetric chest movement and No tachypneic AUSCULTATION: clear to auscultation bilaterally Cardio: COMMON NORMALS: regular rate, regular rhythm, S1 normal heart sound, S2 normal heart sound and no murmurs RATE: regular rate RHYTHM: regular rhythm HEART SOUNDS: S1 normal and S2 normal GI: COMMON NORMALS: normal to inspection, nondistended, normoactive bowel sounds, soft to palpation and non-tender PALPATION: Yes soft Extremity: COMMON NORMALS: normal to inspection, full ROM and no clubbing, cyanosis or edema; negative for no pedal edema Neuro: COMMON NORMALS: oriented x3, moves all extremities, no focal motor deficits and no sensory deficits noted Psych: COMMON NORMALS: mental status grossly normal, thought process normal, cooperative, affect normal and speech normal SPEECH: Yes normal speech THOUGHT PROCESS: normal thought process Skin: COMMON NORMALS: no rashes or lesions noted, no jaundice, no petechiae and no mottling GENERAL SKIN EXAM: no rashes or lesions noted OTHER: open wound noted on R parietal area, clean dressing in place, no active drainage noted Data : 12/20/19 04:40 12/21/19 05:00 Micro: Microbiology 12/15/19 14:00 Blood Culture - Final Blood NO GROWTH AFTER 5 DAYS A&P Assessment and plan (1) Hypocalcemia: -continued hypocalcemia -corrected calcium-6.9 -continue to monitor electrolytes -continue KCl, calcium carbonate, phosphate and magnesium replacement -likely medication side effect as was on Revlimid and denosumab, both on hold -hold Lasix -noted elevated PTH (309), low ionized calcium Status: Acute Code(s): E83.51 - Hypocalcemia (2) Plasmacytoma: -s/p open [place] [address] 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 Rodriguez Status: Acute Qualifiers: Multiple myeloma remission status: unspecified Qualified Code(s): C90.00 - Multiple myeloma not having achieved remission Code(s): C90.00 - Multiple myeloma not having achieved remission (4) Pulmonary embolism: -has hx of bilateral PE -continue AC with Eliquis Status: Acute Qualifiers: Pulmonary embolism type: multiple subsegmental (without acute cor pulmonale) Qualified Code(s): I26.94 - Multiple subsegmental pulmonary emboli without acute cor pulmonale Code(s): I26.99 - Other pulmonary embolism without acute cor pulmonale Additional A&P Information -Morbid obesity: BMI-38 kg/m2 -MIRNA on CPAP -blood cx: 11/19 bottles positive for Strep viridans; repeat blood cx negative -noted episodes of atrial fibrillation: on BB, already on Eliquis -SOB: Echo: EF=55%, responded well to dose of Lasix, supplemental oxygen as needed. Trivial pericardial effusion, not hemodynamically significant per cardio -Chest heaviness: no ischemic changes on ECG. Now resolved -HTN -cardiac diet -no need for DVT ppx as on Eliquis -Dispo: home -Code status: FULL code Attestations Medical Necessity Statement*: Patient requires hospitalization for continued management of hypocalcemia, requiring aggressive replacement and continued monitoring of calcium levels. Time Spent in Patient Care: Greater than 35 minutes (>than 50% of time spent in counselling and/or direct pt care on unit) . Coding Level of Care Code Acute Entry Level Management for Chg Fwd Exam Problem Focused Diagnoses Hypocalcemia E83.51 Plasmacytoma C90.30 Plasmacytoma active/remission status: unspecified whether remission achieved Plasmacytoma type: unspecified type Multiple myeloma C90.00 Multiple myeloma remission status: unspecified Pulmonary embolism I26.94 Pulmonary embolism type: multiple subsegmental (without acute cor pulmonale)
[2019-12-21] MEDS: fluoxetine 10 mg Capsule 30 MG PO (17:29)
[2019-12-22] VITALS (11 sets, daily range): BP systolic 93–124; BP diastolic 61–77; PULSE 67–88; RESP 17–20; TEMP 36.4–37.2; O2SAT 92–97
[2019-12-22] MEDS: calcium carbonate 500 mg Chew Tablet 1000 MG PO ×5 (00:07→23:22)
[2019-12-22 04:49] LABS: Alanine Aminotransferase 32 U/L (0-33); Albumin Level 2.6 g/dL (3.5-5.2); Alkaline Phosphatase 116 IU/L (35-105); Anion Gap 12.7 (5-19); Aspartate Amino Transferase 68 U/L (0-32); Blood Urea Nitrogen 10 mg/dL (8-23); Carbon Dioxide 26 mmol/L (22-29); Chloride 102 mmol/L (98-107); Globulin 2.8 g/dL (1.3-4.6); Glomerular Filtration Rate 71.3 mL/min (90-130); Glucose 103 mg/dL (65-115); Phosphorus 1.6 mg/dL (2.5-4.5); Potassium 3.7 mmol/L (3.5-5.1); Sodium 137 mmol/L (136-145); Total Bilirubin 0.2 mg/dL (0.15-1.2); Total Protein 5.4 g/dL (6.6-8.7)
[2019-12-22 05:06] LABS: Calcium 5.6 mg/dL (8.5-10.5)
--- NOTE | 2019-12-22 05:11 | PC.NURSE ---
Let Dr. cabello know that the patient had another critical calcium level trending downward from 5.[address] cabello said to give her 2 gram calcium gluconate iv x1.
--- NOTE | 2019-12-22 05:56 | PC.NURSE ---
Patient continues to be baffled about why calcium levels wont climb regardless of current treatments. Wants to speak to the doctor to see where they go from here.
[2019-12-22] MEDS: cholecalciferol (vitamin D3) 1,000 unit Tablet 2000 UNIT PO (08:48)
[2019-12-22] MEDS: calcitriol 0.25 mcg Capsule 0.5 MCG PO (08:48)
[2019-12-22] MEDS: aspirin 81 mg EC Tablet PO (08:48)
[2019-12-22] MEDS: phosphorus 250 mg Tablet 500 MG PO ×2 (08:48→19:36)
[2019-12-22] MEDS: metoprolol tartrate 25 mg Tablet 12.5 MG PO ×2 (08:48→19:39)
[2019-12-22] MEDS: apixaban 5 mg Tablet PO ×2 (08:48→19:39)
[2019-12-22] MEDS: magnesium oxide 400 mg tablet 800 MG PO ×2 (08:48→19:36)
--- NOTE | 2019-12-22 09:36 | PC.SOCIAL ---
IMM Update Pg 2 of IMM given and explained to patient who voiced understanding. Signed, dated, and timed, and placed in chart. Copy provided to patient.
--- NOTE | 2019-12-22 09:44 | PM.PN ---
Subjective Subjective: Interval history: AM labs noted, corrected calcium-6.7; received 2 gm dose of IV calcium gluconate. Seen and examined, family at bedside, seems to be in good spirits today, I discussed lab findings including calcium levels. Case discussed with Dr. Rodriguez, patient will likely require continued IV infusions and continued follow-up with him. Medications: Reviewed: Yes Medication Review Details: Current Medications Generic Name Dose Route Start Last Admin Trade Name Freq PRN Reason Stop Dose Admin Acetaminophen 650 mg 12/17/19 13:08 12/21/19 05:25 Tylenol PO 650 mg Q6H PRN Administration MILD PAIN Apixaban 5 mg 12/17/19 20:15 12/22/19 08:48 Eliquis PO 5 mg Q12H FABIENNE Administration Aspirin 81 mg 12/16/19 09:00 12/22/19 08:48 Aspirin Ec PO 81 mg DAILY FABIENNE Administration Calcitriol 0.5 mcg 12/16/19 09:00 12/22/19 08:48 Rocaltrol PO 0.5 mcg DAILY FABIENNE Administration Calcium Carbonate 1,000 mg 12/17/19 17:45 12/22/19 05:36 Tums PO 1,000 mg Q6H FABIENNE Administration Cyclobenzaprine HC l 5 mg 12/15/19 17:45 12/16/19 22:21 Flexeril PO 5 mg BID PRN Administration MUSCLE PAIN Fluoxetine HCl 30 mg 12/17/19 20:00 12/21/19 17:29 Prozac PO 30 mg QPM FABIENNE Administration Furosemide 40 mg 12/17/19 13:15 12/19/19 12:43 Lasix IVP 40 mg Q24H FABIENNE Administration Lorazepam 0.5 mg 12/20/19 06:29 12/20/19 17:50 Ativan PO 0.5 mg BID PRN Administration ANXIETY Magnesium Oxide 800 mg 12/18/19 18:00 12/22/19 08:48 Magox PO 800 mg BID FABIENNE Administration Metoprolol Tartrat e 12.5 mg 12/18/19 18:00 12/22/19 08:48 Lopressor PO 12.5 mg BID FABIENNE Administration Potassium Chloride 10 meq 12/16/19 18:00 12/22/19 08:48 Klor-Con 10 PO 10 meq BID FABIENNE Administration Potassium Phosphat e 500 mg 12/18/19 18:00 12/22/19 08:48 Phospha 250 Neut ral PO 500 mg BID FABIENNE Administration Vitamin D 2,000 unit 12/17/19 17:45 12/22/19 08:48 Vitamin D3 PO 2,000 unit DAILY FABIENNE Administration Vitals/I&O/Wt Last Vital Signs Temp 99.0 F 12/22/19 08:00 Pulse 73 12/22/19 08:00 Resp 18 12/22/19 08:00 BP 105/68 12/22/19 08:00 Pulse Ox 93 12/22/19 08:00 12/21/19 12/22/19 12/22/19 22:59 06:59 14:59 Intake Total 240 / 1320 250 / 1570 500 / 500 Output Total 200 / 200 500 / 700 Balance 40 / 1120 -250 / 870 500 / 500 Weight last 48 hrs Weight 101.968 kg Weight 98.43 kg Physical Exam Const: COMMON NORMALS: no apparent distress and oriented x3 GENERAL APPEARANCE: cooperative and comfortable ORIENTATION/CONSCIOUSNESS: Yes awake HENMT: COMMON NORMALS: normocephalic, head/scalp atraumatic, hearing grossly normal bilaterally and moist oral mucous membranes HEAD & SCALP: normocephalic and atraumatic TEETH & GINGIVA: Yes poor dentition Eye: COMMON NORMALS: PERRL, EOMs intact bilaterally and conjunctivae normal CONJUNCTIVA: Yes conjunctivae normal PUPIL: Yes PERRL Neck/C-Spine: COMMON NORMALS: full ROM GENERAL: Yes normal visual inspection and Yes trachea midline Resp: COMMON NORMALS: normal respiratory effort, no retractions, no use of accessory muscles and clear to auscultation bilaterally EFFORT & INSPECTION: Yes able to speak in complete sentences, Yes symmetric chest movement and No tachypneic AUSCULTATION: clear to auscultation bilaterally Cardio: COMMON NORMALS: regular rate, regular rhythm, S1 normal heart sound, S2 normal heart sound and no murmurs RATE: regular rate RHYTHM: regular rhythm HEART SOUNDS: S1 normal and S2 normal GI: COMMON NORMALS: normal to inspection, nondistended, normoactive bowel sounds, soft to palpation and non-tender PALPATION: Yes soft Extremity: COMMON NORMALS: normal to inspection, full ROM and no clubbing, cyanosis or edema; negative for no pedal edema Neuro: COMMON NORMALS: oriented x3, moves all extremities, no focal motor deficits and no sensory deficits noted Psych: COMMON NORMALS: mental status grossly normal, thought process normal, cooperative, affect normal and speech normal SPEECH: Yes normal speech THOUGHT PROCESS: normal thought process Skin: COMMON NORMALS: no rashes or lesions noted, no jaundice, no petechiae and no mottling GENERAL SKIN EXAM: no rashes or lesions noted OTHER: open wound noted on R parietal area, clean dressing in place, no active drainage noted Data : 12/20/19 04:40 12/22/19 03:36 Micro: Microbiology 12/17/19 06:07 Blood Culture - Final Blood NO GROWTH AFTER 5 DAYS 12/17/19 06:03 Blood Culture - Final Blood NO GROWTH AFTER 5 DAYS A&P Assessment and plan (1) Hypocalcemia: -continued hypocalcemia -corrected calcium-6.7 -continue to monitor electrolytes -continue KCl, calcium carbonate, phosphate and magnesium replacement -likely medication side effect as was on Revlimid and denosumab, both on hold. Had also received injectafer -hold Lasix -noted elevated PTH (309), low ionized calcium -Can continue to receive outpatient IV electrolyte infusions, follow-up with Dr. Rodriguez Status: Acute Code(s): E83.51 - Hypocalcemia (2) Plasmacytoma: -s/p open excision [place] [address] 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 Rodriguez Status: Acute Qualifiers: Multiple myeloma remission status: unspecified Qualified Code(s): C90.00 - Multiple myeloma not having achieved remission Code(s): C90.00 - Multiple myeloma not having achieved remission (4) Pulmonary embolism: -has hx of bilateral PE -continue AC with Eliquis Status: Acute Qualifiers: Pulmonary embolism type: multiple subsegmental (without acute cor pulmonale) Qualified Code(s): I26.94 - Multiple subsegmental pulmonary emboli without acute cor pulmonale Code(s): I26.99 - Other pulmonary embolism without acute cor pulmonale Additional A&P Information -Morbid obesity: BMI-38 kg/m2 -MIRNA on CPAP -blood cx: 11/19 bottles positive for Strep viridans; repeat blood cx negative -noted episodes of atrial fibrillation: on BB, already on Eliquis -SOB: Echo: EF=55%, responded well to dose of Lasix, supplemental oxygen as needed. Trivial pericardial effusion, not hemodynamically significant per cardio -Chest heaviness: no ischemic changes on ECG. Now resolved -HTN -cardiac diet -no need for DVT ppx as on Eliquis -Dispo: home -Code status: FULL code Attestations Medical Necessity Statement*: Patient requires hospitalization for continued management of significant hypocalcemia, requiring aggressive replacement. Time Spent in Patient Care: Greater than 35 minutes (>than 50% of time spent in counselling and/or direct pt care on unit). Coding Level of Care Code Acute Green Chain Worker for Sylviag Fwd Exam Problem Focused Diagnoses Hypocalcemia E83.51 Plasmacytoma C90.30 Plasmacytoma active/remission status: unspecified whether remission achieved Plasmacytoma type: unspecified type Multiple myeloma C90.00 Multiple myeloma remission status: unspecified Pulmonary embolism I26.94 Pulmonary embolism type: multiple subsegmental (without acute cor pulmonale)
[2019-12-22] MEDS: acetaminophen 325 mg Tablet 650 MG PO (16:17)
[2019-12-22] MEDS: fluoxetine 10 mg Capsule 30 MG PO (19:38)
[2019-12-22] MEDS: LORazepam 0.5 mg Tablet PO (19:38)
--- NOTE | 2019-12-22 20:10 | PC.NURSE ---
dressing to postior head dry and intact
--- NOTE | 2019-12-22 20:19 | PC.NURSE ---
Pt given dc paper work by Narda RN on dayshift voiced understanding, given 1 rx dtr took and filled. Pt reported pain better after ultram. Taken via [place] to personal vehicle dtr at side. Drssing to back dry and intact. No complaints voiced. Iv Removed.
[2019-12-23] VITALS (9 sets, daily range): BP systolic 99–128; BP diastolic 65–78; PULSE 65–79; RESP 17–18; TEMP 36.7–37.1; O2SAT 92–97
[2019-12-23] MEDS: acetaminophen 325 mg Tablet 650 MG PO (04:11)
[2019-12-23] MEDS: albuterol 8 gm MDI 2 PUFF INHALATION ×2 (04:27→09:39)
[2019-12-23] MEDS: calcium carbonate 500 mg Chew Tablet 1000 MG PO ×2 (05:51→12:04)
[2019-12-23] MEDS: metoprolol tartrate 25 mg Tablet 12.5 MG PO (09:45)
[2019-12-23] MEDS: apixaban 5 mg Tablet PO (09:45)
[2019-12-23] MEDS: phosphorus 250 mg Tablet 500 MG PO (09:46)
[2019-12-23] MEDS: cholecalciferol (vitamin D3) 1,000 unit Tablet 2000 UNIT PO (09:46)
[2019-12-23] MEDS: aspirin 81 mg EC Tablet PO (09:46)
[2019-12-23] MEDS: calcitriol 0.25 mcg Capsule 0.5 MCG PO (09:46)
[2019-12-23] MEDS: magnesium oxide 400 mg tablet 800 MG PO (09:47)
[2019-12-23 10:49] LABS: Basophils # 0.2 10^3/uL (0.0-0.1); Basophils % 4.8 %; Eosinophils % 0.7 %; Hematocrit 33.4 % (37.0-47.0); Hemoglobin 10.2 g/dL (11.5-15.3); Lymphocytes # 1.2 10^3/uL (0.8-4.8); Lymphocytes % 26.2 %; Mean Corpuscular HGB Conc 30.5 g/dL (30.0-36.0); Mean Corpuscular Hemoglobin 28.5 pg (28.0-34.0); Mean Corpuscular Volume 93.3 fL (81-99); Mean Platelet Volume 12.2 fL (7.4-10.4); Monocytes # 0.5 10^3/uL (0.2-0.9); Monocytes % 10.6 %; Neutrophils # 2.6 10^3/uL (1.8-7.7); Neutrophils % 57.3 %; Nucleated Red Blood Cells % 0 %; Platelet Count 378 10^3/cmm (130-400); Red Blood Count 3.58 10^6/uL (4.1-5.3); Red Cell Distribution Width 19.9 % (12.1-15.1); White Blood Count 4.5 10^3/uL (4.0-10.0)
[2019-12-23 11:18] LABS: Alanine Aminotransferase 31 U/L (0-33); Albumin Level 3.1 g/dL (3.5-5.2); Alkaline Phosphatase 136 IU/L (35-105); Anion Gap 13.8 (5-19); Aspartate Amino Transferase 47 U/L (0-32); Blood Urea Nitrogen 8 mg/dL (8-23); Carbon Dioxide 26 mmol/L (22-29); Chloride 102 mmol/L (98-107); Globulin 3.1 g/dL (1.3-4.6); Glomerular Filtration Rate 71.3 mL/min (90-130); Glucose 207 mg/dL (65-115); Phosphorus 1.5 mg/dL (2.5-4.5); Potassium 3.8 mmol/L (3.5-5.1); Sodium 138 mmol/L (136-145); Total Bilirubin 0.2 mg/dL (0.15-1.2); Total Protein 6.2 g/dL (6.6-8.7)
[2019-12-23 11:39] LABS: Calcium 5.7 mg/dL (8.5-10.5)
--- NOTE | 2019-12-23 13:05 | PM.DCS ---
Discharge Providers Date of Admission: 12/15/19 15:37 Date of Discharge: Date of Discharge: December 23, 2019 Attending Provider at Admission: Anton Zhang MD Attending Provider at Discharge: Yanet Coleman MD Primary Care Provider: Luis Manuel Jimenes DO Diagnoses at Discharge Discharge Diagnosis (1) Hypocalcemia: Status: Acute Problem details: -continued hypocalcemia -corrected calcium-6.4 -continue to monitor electrolytes -continue KCl, calcium carbonate, phosphate and magnesium replacement -likely medication side effect as was on Revlimid and denosumab, both on hold. Had also received injectafer -hold Lasix -noted elevated PTH (309), low ionized calcium -Can continue to receive outpatient IV electrolyte infusions, follow-up with Dr. Rodriguez (2) Plasmacytoma: Status: Acute Problem details: -s/p open excision [place] [address] 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 Rodriguez Qualifiers: Multiple myeloma remission status: unspecified Qualified Code(s): C90.00 - Multiple myeloma not having achieved remission (4) Pulmonary embolism: Status: Acute Problem details: -has hx of bilateral PE -continue AC with Eliquis Qualifiers: Pulmonary embolism type: multiple subsegmental (without acute cor pulmonale) Qualified Code(s): I26.94 - Multiple subsegmental pulmonary emboli without acute cor pulmonale Other Information Additional DC diagnoses/information: -Morbid obesity: BMI-38 kg/m2 -MIRNA on CPAP -blood cx: 11/19 bottles positive for Strep viridans; repeat blood cx negative -noted episodes of atrial fibrillation: on BB, already on Eliquis -SOB: Echo: EF=55%, responded well to dose of Lasix, supplemental oxygen as needed. Trivial pericardial effusion, not hemodynamically significant per cardio -Chest heaviness: no ischemic changes on ECG. Now resolved -HTN Reason for Visit Reason for Visit: Reason For Visit: HYPOCALKEMIA Hospital Course Hospital Course: Patient was admitted to the medical surgical floor and started on aggressive electrolyte replacement particularly in terms of calcium as she had significant hypocalcemia on presentation. Her potassium and magnesium have normalized but low calcium and phosphorus persist though her calcium has improved some since admission. Her renal function has consistently been normal. She is asymptomatic , vital signs have been stable, she has been ambulatory and tolerating oral intake without difficulty. I discussed the case with Dr. Rodriguez whom she sees for history of multiple myeloma and he has agreed to continue to follow-up and replace her calcium as needed on an outpatient basis. Etiology of hypocalcemia remains unclear but this could have been medication induced from history available. Discharge Summary: -Patient to follow up with Dr. Rodriguez on Thursday; will continue to monitor and replace electrolytes as needed -Patient to follow up with Dr. Jimenes within 1 week Physical Exam Const: COMMON NORMALS: no apparent distress and oriented x3 GENERAL APPEARANCE: cooperative and comfortable ORIENTATION/CONSCIOUSNESS: Yes awake HENMT: COMMON NORMALS: normocephalic, head/scalp atraumatic, hearing grossly normal bilaterally and moist oral mucous membranes HEAD & SCALP: normocephalic and atraumatic TEETH & GINGIVA: Yes poor dentition Eye: COMMON NORMALS: PERRL, EOMs intact bilaterally and conjunctivae normal CONJUNCTIVA: Yes conjunctivae normal PUPIL: Yes PERRL Neck/C-Spine: COMMON NORMALS: full ROM GENERAL: Yes normal visual inspection and Yes trachea midline Resp: COMMON NORMALS: normal respiratory effort, no retractions, no use of accessory muscles and clear to auscultation bilaterally EFFORT & INSPECTION: Yes able to speak in complete sentences, Yes symmetric chest movement and No tachypneic AUSCULTATION: clear to auscultation bilaterally Cardio: COMMON NORMALS: regular rate, regular rhythm, S1 normal heart sound, S2 normal heart sound and no murmurs RATE: regular rate RHYTHM: regular rhythm HEART SOUNDS: S1 normal and S2 normal GI: COMMON NORMALS: normal to inspection, nondistended, normoactive bowel sounds, soft to palpation and non-tender PALPATION: Yes soft Extremity: COMMON NORMALS: normal to inspection, full ROM and no clubbing, cyanosis or edema; negative for no pedal edema Neuro: COMMON NORMALS: oriented x3, moves all extremities, no focal motor deficits and no sensory deficits noted Psych: COMMON NORMALS: mental status grossly normal, thought process normal, cooperative, affect normal and speech normal SPEECH: Yes normal speech THOUGHT PROCESS: normal thought process Skin: COMMON NORMALS: no rashes or lesions noted, no jaundice, no petechiae and no mottling GENERAL SKIN EXAM: no rashes or lesions noted OTHER: open wound noted on R parietal area, clean dressing in place, no active drainage noted Discharge Data Data Completed and Pending: Completed Studies During Hospitalization Category Date Time Status CT angio chest PE protcl [id number] Stat Cat Scan 12/15/19 13:[address] neck w con* [id number] Routine Cat Scan 12/17/19 13:08 Completed XR chest 1V dionicio ble [id number] Routine Exams 12/18/19 07:00 Completed CV echo complete* [id number] Stat Ultrasound 12/15/19 17:23 [place] thyroid [id number] Routine Ultrasound 12/18/19 17:40 Completed Labs from last 24 hours 12/23/19 12/23/19 10:13 10:13 WBC 4.5 RBC 3.58 L Hgb 10.2 L Hct 33.4 L MCV 93.3 MCH 28.5 MCHC 30.5 RDW 19.9 H Plt Count 378 MPV 12.2 H Neut % (Auto) 57.3 Lymph % (Auto) 26.2 Teller % (Auto) 10.6 Eos % (Auto) 0.7 Baso % (Auto) 4.8 Neut # (Auto) 2.6 Lymph # (Auto) 1.2 Teller # (Auto) 0.5 Eos # (Auto) 0.0 Baso # (Auto) 0.2 H Nucleated RBC % (a uto) 0 Nucleated RBCs # 0.0 Sodium 138 Potassium 3.8 Chloride 102 Carbon Dioxide 26 Anion Gap 13.8 BUN 8 Creatinine 0.8 GFR Calculation 71.3 L Glucose 207 H Calcium 5.7 L* Phosphorus 1.5 L Total Bilirubin 0.2 AST 47 H ALT 31 Alkaline Phosphata se 136 H Total Protein 6.2 L Albumin 3.1 L Globulin 3.1 Vitals: Last Vital Signs Temp 98.6 F 12/23/19 12:00 Pulse 71 12/23/19 12:00 Resp 18 12/23/19 12:00 BP 112/66 12/23/19 12:00 Pulse Ox 92 12/23/19 12:00 Discharge Plan Discharge Patient Disposition: Home Health Service Condition: Stable Prescriptions: New magnesium oxide 400 mg (241.3 mg magnesium) Tablet 800 mg PO BID 30 Days Qty: 120 RF: 0 calcium carbonate 200 mg calcium (500 mg) Tablet,Chewable 1,000 mg PO Q6H 30 Days Qty: 600 RF: 0 Phospha 250 Neutral 250 mg Tablet 500 mg PO BID 30 Days Qty: 120 RF: 0 calcitriol 0.25 mcg Capsule 0.5 mcg PO DAILY 30 Days Qty: 60 RF: 0 metoprolol tartrate 25 mg Tablet 12.5 mg PO BID 30 Days Qty: 30 RF: 0 Vitamin D3 25 mcg (1,000 unit) Tablet 2,000 unit PO DAILY 30 Days Qty: 60 RF: 0 Continued furosemide 40 mg tablet 40 mg PO EVERY OTHER DAY RF: 0 fluoxetine 10 mg tablet 10 mg PO DAILY RF: 0 lorazepam 0.5 mg Tablet 0.5 mg PO DAILY PRN (Reason: Anxiety) RF: 0 pantoprazole 40 mg tablet,delayed release (DR/EC) 40 mg PO BID RF: 0 Regranex 0.01 % Gel 1 applic TOPICAL EVERY OTHER DAY RF: 0 albuterol sulfate [Ventolin HFA] 90 mcg/actuation HFA aerosol inhaler 1 puff INHALATION Q4H PRN (Reason: Shortness Of Breath) RF: 0 cyclobenzaprine 5 mg tablet 5 mg PO BID PRN (Reason: Muscle Pain) RF: 0 Eliquis 5 mg tablet 5 mg PO BID RF: 0 potassium chloride 10 mEq capsule, extended release 10 meq PO BID Qty: 30 RF: 0 Discontinued calcium carbonate 650 mg calcium (1,625 mg) tablet 650 mg PO BID Qty: 20 RF: 0 Discharge Orders: Discharge Order (Routine); Ordered 12/23/19 Ordered By: Yanet Coleman Referrals: Ruiz Rodriguez MD [Hospitalist] - 1-3 days (Continued follow up on hypocalcemia) Luis Manuel Jimenes DO [Primary Care Provider] - 4-7 days Discharge Diet: Regular Discharge Activity: Resume usual activity Discharge Attestations Time Spent in Discharge Care*: greater than 30 min Specific Discharge Activities: Specific discharge activities: educating patient, educating and/or supporting family/caregiver, discussing with pcp/other providers, discussing with rn field case manager/social workers/dc planners, documenting/other paperwork and evaluating patient/reviewing data Status at Discharge: Cognitive status at discharge: cognitively intact, Behavioral status at discharge: cooperative, Functional status at discharge: independent ambulation Overall status at discharge: patient is back to baseline Quality Metrics Clinical Quality Measures During this hospital stay, did patient experience: None Coding Level of Care Code Acute Calender Wind Up Helper for Chg Fwd Exam Problem Focused Diagnoses Hypocalcemia E83.51 Plasmacytoma C90.30 Plasmacytoma active/remission status: unspecified whether remission achieved Plasmacytoma type: unspecified type Multiple myeloma C90.00 Multiple myeloma remission status: unspecified Pulmonary embolism I26.94 Pulmonary embolism type: multiple subsegmental (without acute cor pulmonale)
--- NOTE | 2019-12-23 16:43 | PC.NURSE ---
Patient discharge instructions given. IV taken out and was clean and intact. Vitals taken. Belongings sent with patient. Patient taken to vehicle via wheelchair with no complications.
== END 2019-12-23 16:54 | disposition home health service (06) | DRG 641 ==
LOC: ER 13:13 → MEDSURG 16:20
PROVIDERS: Family Medicine; Admitting Provider Student in an Organized Health Care Education/Training Program; Emergency Provider Family Medicine; Family Provider Electrodiagnostic Medicine; PCP Electrodiagnostic Medicine; Visit Provider Family Medicine
DX: E83.51 Hypocalcemia (principal); E87.6 Hypokalemia; I10 Essential (primary) hypertension; K21.9 Gastro-esophageal reflux disease without esophagitis; F32.9 Major depressive disorder, single episode, unspecified; F41.9 Anxiety disorder, unspecified; Z86.718 Personal history of other venous thrombosis and embolism; E83.39 Other disorders of phosphorus metabolism; E83.42 Hypomagnesemia; Z88.1 Allergy status to other antibiotic agents; Z88.5 Allergy status to narcotic agent; Z88.8 Allergy status to other drugs, medicaments and biological substances; T50.995A Adverse effect of other drugs, medicaments and biological substances, initial encounter; Z92.3 Personal history of irradiation; E66.01 Morbid (severe) obesity due to excess calories; G47.33 Obstructive sleep apnea (adult) (pediatric); Z68.39 Body mass index [BMI] 39.0-39.9, adult; Z79.01 Long term (current) use of anticoagulants; B95.4 Other streptococcus as the cause of diseases classified elsewhere; Z79.899 Other long term (current) drug therapy; Z86.711 Personal history of pulmonary embolism; Z85.79 Personal history of other malignant neoplasms of lymphoid, hematopoietic and related tissues
CPT/HCPCS: 12345; 36415; 36416; 70491; 71045; 71275; 76536; 80048; 80053; 80061; 82306; 82310; 82330; 82962; 83540; 83550; 83605; 83735; 83880; 83970; 84100; 84145; 84484; 85025; 87040; 87205; 87804; 93005; 93306; 94640; 94664; 96365; 96366; 96374; 96375; 99282; J0610; J1885; J1940; J2001; J3370; J3475; J3490; J3535; J7050; Q9967

== ENCOUNTER 2020-01-04 08:25 | Outpatient (RCR) | payer MEDICARE, SELFPAY | END 2020-01-14 23:59 | disposition home or self-care (01) | LOC: WOUND 08:25 | PROVIDERS: Family Provider Electrodiagnostic Medicine; PCP Electrodiagnostic Medicine; Visit Provider Nurse Practitioner Family | DX: I96 Gangrene, not elsewhere classified (principal); L59.8 Other specified disorders of the skin and subcutaneous tissue related to radiation; Y84.2 Radiological procedure and radiotherapy as the cause of abnormal reaction of the patient, or of later complication, without mention of misadventure at the time of the procedure | CPT/HCPCS: 11042 ==

== ENCOUNTER 2020-01-13 05:40 | Outpatient (RCR) | payer MEDICARE, SELFPAY ==
[2019-12-27 09:11] LABS: Basophils # 0.2 10^3/uL (0.0-0.1); Basophils % 3.1 %; Eosinophils % 0.8 %; Lymphocytes # 1.1 10^3/uL (0.8-4.8); Lymphocytes % 22.1 %; Mean Corpuscular Hemoglobin 27.5 pg (28.0-34.0); Mean Corpuscular Volume 88.7 fL (81-99); Mean Platelet Volume 11.8 fL (7.4-10.4); Monocytes # 0.5 10^3/uL (0.2-0.9); Monocytes % 10.4 %; Neutrophils % 63.2 %; Nucleated Red Blood Cells % 0 %; Platelet Count 450 10^3/cmm (130-400); Red Blood Count 3.27 10^6/uL (4.1-5.3); Red Cell Distribution Width 19.5 % (12.1-15.1); White Blood Count 4.8 10^3/uL (4.0-10.0)
[2019-12-27 09:14] LABS: Alanine Aminotransferase 25 U/L (0-33); Albumin Level 2.7 g/dL (3.5-5.2); Alkaline Phosphatase 169 IU/L (35-105); Anion Gap 15.5 (5-19); Aspartate Amino Transferase 27 U/L (0-32); Blood Urea Nitrogen 5 mg/dL (8-23); Carbon Dioxide 22 mmol/L (22-29); Chloride 107 mmol/L (98-107); Globulin 3.2 g/dL (1.3-4.6); Glomerular Filtration Rate 83.2 mL/min (90-130); Glucose 131 mg/dL (65-115); Magnesium 1.6 mg/dL (1.7-2.3); Potassium 3.5 mmol/L (3.5-5.1); Sodium 141 mmol/L (136-145); Total Bilirubin 0.2 mg/dL (0.15-1.2); Total Protein 5.9 g/dL (6.6-8.7)
[2019-12-27 09:22] LABS: Calcium 5.4 mg/dL (8.5-10.5)
--- NOTE | 2019-12-27 10:26 | XR_ITS ---
WS: [id number] AP and lateral chest, 12/27/2019 Clinical Data: COUGH;SHORTNESS OF BREATH Comparison: Portable chest, 12/18/2019 Findings: There is a small left pleural effusion unchanged. The heart is enlarged. The pulmonary vasc ularity is not increased. There is probable left lower lobe atelectasis behind the heart but could re present early pneumonia.. The aortic arch shows tortuosity. No pneumonia or pneumothorax is present. There are clips in the upper abdomen from surgery. XR/XR chest 2V* [id number] Impression: 1. No change in cardiomegaly and small left effusion. 2. Atherosclerosis and probable retrocardiac linear atelectasis with a possibil ity of early pneumonia.
[2019-12-27 10:27] LABS: Erythrocyte Sedimentation Rate 48 mm/hr (0-15)
--- NOTE | 2019-12-28 06:41 | ONC FU_ITS ---
Dr. Rodriguez Patient Follow-Up Note Patient: Valentin Clark Unit #: [id number]: 1950 Dicatated By: Ruiz Rodriguez M.D.Date of Visit:Dec 27, 2019 Onc Med Follow-up/Prog Note Chief Complaint: Mulitple myeloma. 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 In March 2018 she had bumped her head at work and in the process of that she became aware of a small lump, though it was actually in a slightly different area. She then noticed that the lump was getting larger. Evaluation with head MRI on 06/07/2018 showed evidence of a right parietal occipital extra-axial neoplasm, felt to be most likely meningeal in origin. It was noted to exert mass effect on the right parietal and occipital lobes, but without associated midline shift or white matter parenchymal edema. The lesion was noted to invade through the calvarium and into the subcutaneous parietal occipital scalp soft tissues. The mass measured 5.7 x 3.5 x 6 cm. 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 The area of occlusion was noted to extend over approximately 4.3 cm. She was seen by Dr. Landry and subsequently referred for neurosurgery evaluation at [facility]. Initially they had considered possible surgical resection. Her further evaluation there apparently included laboratory findings which were suspicious for myeloma, and it was recommended that she have treatment with radiation. She was seen here for further management on 07/14/2018. She then returned to Dr. Landry, and on 07/20/2018 she underwent open biopsy/resection of the extracranial extent of the mass. 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 Her further evaluation included protein electrophoresis which showed an IgG lambda monoclonal protein in the serum quantitating at 0.48 g/dL. The serum free light chain assay showed elevated lambda light chain at 374.65 mg/L with decreased kappa/lambda ratio at 0.06. The 24-hour urine protein electrophoresis showed no monoclonal protein. There were no other areas of lytic bone involvement noted on her skeletal survey. Bone marrow aspiration/biopsy on 07/30/2018 showed a monotypic plasma cell population, but it comprised only 2% of the total cellularity. A FISH panel for myeloma was unrevealing, and the standard chromosome analysis was normal. She was referred to Dr. Kaur, and she began radiation to the lesion on 07/30/2018. She completed treatment on 09/02/2018 to a total dose of 5,000 cGy. She had evaluation with CT pulmonary angiogram on 09/14/2018. It showed moderate bilateral pulmonary embolic burden. She began on anticoagulation with apixaban. During her subsequent follow-up she continued to have an open wound at the site of the plasmacytoma in the parietal-occipital scalp region. As of her follow-up visit on 10/19/2018 her M protein was stable 0.37 g/dL. In the absence of any evidence of symptomatic myeloma, she had otherwise just continued on observation/expectant management. However, due to her persistent scalp wound she had a repeat brain MRI on 01/11/2019. It showed evidence of residual neoplastic process at the resection site. There was associated dural involvement but with improved signal characteristics and decreased enhancement compared to the study from September 2018. She was seen for a follow-up visit on 01/20/2019. In view of the MRI findings, she had further evaluation with PET/CT on 02/03/2019. It showed increase in size and expansile hypermetabolic lesion within the left ilium with extension of hypermetabolic tumor into the adjacent left iliac muscle. There was a new hypermetabolic lytic process within the right S1/S2 region. A large lytic mass within the posterior calvarium did not appear to have active hypermetabolism. Also noted, though, was a hypermetabolic lesion within the medullary canal of the distal left femoral diametaphysis and an additional hypermetabolic focus in the anterior cortex of the distal right femur concerning for additional areas of myeloma. In the setting of obvious progression of her myeloma, she was recommended to begin a trial of therapy with Velcade/Revlimid/dexamethasone. Her other medical illnesses include hypertension and degenerative arthritis/degenerative disease of the spine. She has associated cervical and lumbar spinal stenosis. She has a history of endometriosis, and she has anxiety/depression. She is a nonsmoker. INTERIM HISTORY: She began cycle 1 of VRd on 02/23/2019. At that time she also received an infusion of IV Zometa for the lytic bone involvement. At that time, there was a slight increase in her baseline creatinine level to 1.2 mg/dL, and did opt to reduce her Revlimid dosage because of that. She experienced significant toxicity following her day 1 treatment, mainly having become listless and out of it over the next 4-5 days. She also lost her appetite. Her follow-up lab studies showed a drop in her calcium from baseline 10.3 mg/dL to 6.5 mg/dL with albumin 3.5 g/dL. With that finding, I did opt to hold her further Velcade, but she continued Revlimid and dexamethasone. As of 03/09/2019 she restarted treatment with Velcade at 1.3 mg/m??? weekly with Revlimid reduced to 15 mg daily on a 21/28 day schedule and the dexamethasone dosage reduced to 20 mg weekly. As of her day 15 visit, she was tolerating the treatment well. At that time she received the full dosage of Velcade, and she continued Revlimid 15 mg daily for 7 more days. She had subsequently developed diarrhea, and at her followup visit on 04/07/2019 her treatment was put on hold. She eventually continued with cycle 3 on 05/05/2019 with the Revlimid dosage further reduced to 10 mg daily on a 21/28 day schedule and with the Velcade and dexamethasone dosed weekly. Her repeat SPEP at that time showed residual M protein quantitating at 0.3 g/dL. The free light chain assay showed kappa light chain 100 mg/L, lambda light chain 122 mg/L, and kappa/lambda ratio 0.82. Her treatment was put on hold again at day 8 due to worsening neuropathy. She subsequently was able to continue the Revlimid and dexamethasone, but the Velcade remained on hold. Her repeat protein electrophoresis on 06/09/2019 showed stable M protein at 0.3 g/dL. The serum free light chain assay showed normal kappa/lambda ratio at 0.84. She was seen for a follow-up visit on 06/21/2019. At that point she appeared stable clinically. Her blood counts were adequate, and she continued with her 4th cycle of treatment. Her repeat protein electrophoresis on 07/13/2019 showed residual M protein quantitating at 0.2 g/dL. The free light chain assay showed elevated kappa light chain at 31.0 mg/L and elevated lambda light chain at 33.0 mg/L with normal kappa/lambda ratio at 0.94. Her 24-hour urine protein electrophoresis showed no detectable monoclonal protein. She was seen for a follow-up visit on 07/19/2019. At that point she complained of increased fatigue and excessive somnolence, and I did opt to put her treatment on hold. A subsequent restaging PET/CT showed no FDG avid sites of involvement. Her repeat head MRI on 08/10/2019 showed no evidence of recurrent or progressive disease. With those findings, I opted to transition her treatment to maintenance Revlimid at 5 mg daily, which she started following her visit on 08/17/2019. Her further laboratory studies on 09/22/2019 also showed a low B12 level at 189 pg/mL, and she subsequently started B12 replacement therapy. A sleep study in October 2019 showed moderate obstructive sleep apnea. At her follow-up visit on 11/28/2019 she was still mildly anemic, and transferrin saturation was still low at 17% despite being on oral iron replacement. As such, she was then given parenteral iron replacement with infusions of Injectafer on 11/28/2019 and on 12/05/2019. With the 11/28 visit she also was given denosumab 120 mg by subcutaneous injection for the lytic bone involvement. On 12/06/2019 she was admitted to the hospital with symptomatic hypocalcemia, serum calcium 5.9 mg/dL with albumin 2.9 g/dL. Renal function was stable with creatinine 1.0 mg/dL, but her potassium also was low at 3.2 mmol/L. She was given IV calcium and potassium replacement. She then continued further IV replacement as an outpatient. Despite that she was readmitted to the hospital with hypocalcemia on 12/15/2019. She was discharged home on 12/23/2019. Her evaluation included CT pulmonary angiogram which showed no evidence of pulmonary embolism. There was evidence of cardiomegaly, a small pericardial effusion, and small bilateral pleural effusions. Echocardiogram showed small, hemodynamically insignificant pericardial effusion and normal left ventricular function. She is seen for a followup visit. She complains that she is real tired and that she has no activity and no appetite. Her ECOG score is 3. She had chills yesterday, but she has had no fever or night sweats. She has shortness of breath and she has nonproductive cough. She has not had chest pain. She has had palpitations. She does not complain of nausea. She says she burps all the time. She fluctuates between having loose stools and constipation, but her bowels have been more on the loose side. She has not had as much urine output. She has no significant joint or bone pain. She has started having muscle cramping again. She has had some headaches. She has no focal neurologic symptoms. Medications: Acetaminophen 1 Tablet (of 650 mg) Oral PRN, Biotin Plus Keratin 1 Tablet (of 71657 mcg) Oral daily, Bisacodyl 1 Tablet (of 5 mg) Tablet, enteric coated Oral PRN, Calcitriol 2 Capsule (of 0.5 mcg) Oral daily, Calcium Citrate + D 1 Capsule (of 600-800 mg - Units) Tablet Oral daily, Eliquis 1 Tablet (of 5 mg) Oral b.i.d., Essiac Tonic 1 Capsule Oral b.i.d., FLUoxetine HCl 1 Capsule (of 30 mg) Oral daily, Furosemide 1 Tablet (of 40 mg) Oral daily on Every Other Day, GoodSense Stimulant Laxative 2 Tablet (of 8.6-50 mg) Oral t.i.d. PRN, Loratadine 1 Tablet (of 10 mg) Oral daily PRN, LORazepam 1 Tablet (of 0.5 mg) Oral b.i.d., Magnesium 2 Tablet (of 400 mg) Oral b.i.d., Metoprolol Tartrate 0.5 Tablet (of 25 mg) Oral daily, Pantoprazole Sodium 1 Tablet (of 40 mg) Tablet, enteric coated Oral b.i.d., Potassium Chloride ER 1 Tablet (of 20 meq) Tablet, controlled release Oral b.i.d., Potassium Chloride ER 1 Tablet (of 20 meq) Tablet, controlled release Oral b.i.d., Zoe 1 patch(es) Patch Topical daily, Probiotic Acidophilus 2 Capsule Tablet Oral daily, Regranex 1 (0.01 %) Gel (jelly) Topical daily PRN, Revlimid 1 Tablet (of 5 mg) Capsule Oral daily, Sulfamethoxazole-Trimethoprim (800-160 mg) Tablet Oral Take as Directed, Tums 1 Tablet (of 1000 mg) Tablet, chewable Oral daily, Ventolin HFA 1 (108 (90 base) mcg/act) Aerosol, solution Inhalation PRN, Vitamin B12 1 Tablet (of 2500 mg) Tablet, controlled release Oral daily, Vitamin D3 1 Tablet (of 2000 Units) Oral b.i.d., Vitamin D3 1 Capsule (of 2000 Units) Oral daily Allergies: BusPIRone HCl, Codeine and Related, Levaquin, and Morphine Derivatives. Review of Systems: Constitutional - She feels real tired and her activity is very limited. She has no appetite. No fever, chills, or night sweats. ECOG score is 3, ENMT - No sinus congestion/drainage. No mouth sores. No sore throat. She has difficulty swallowing pills and sometimes liquids, Hematologic/Lymphatic - She bruises easily, Respiratory - She has shortness of breath and she has nonproductive cough. No pleuritic pain or hemoptysis, Cardiovascular - No angina pain. She has had palpitations/heart racing, Gastrointestinal - No nausea or vomiting. She had some pain in the epigastric area on Thursday. No heartburn or acid reflux. Her bowels vary between loose and constipated, but they have been more on the loose side. No blood in the stool or black stools, Genitourinary (F) - No dysuria or hematuria. No urinary frequency. She has not had as much urine output, Musculoskeletal - She is not having any significant joint or bone pain, but she is starting to have muscle cramping again, Integumentary - She still has an open scalp wound, Neurologic - She has some headaches. She has difficulty with balance. No numbness/paresthesia or other focal neurologic symptoms, Psychiatric - She has some anxiety and depression. She is sleeping OK at night. Vital Signs: Performed on Dec 27, 2019 08:30 Height - 63.50 in Weight - 219.0 lbs (HIGH) BSA - 2.02 sq.m BMI - 38.19 (HIGH) Temperature - 98.1 F (LOW) Pulse - 79 /min Respiration - 19 /min BP - 117/70 mm(hg) O2 Sat - 93 % (LOW) Fatigue - 8 Physical Examination: Constitutional - She appears somewhat weak generally, but not acutely ill, Eyes - Sclerae nonicteric. Conjunctivae clear, ENMT - No lesions noted in the oral cavity, Hematologic/Lymphatic - No cervical, clavicular, or axillary adenopathy, Respiratory - Lungs sound clear, Cardiovascular - Heart rhythm is regular with some premature beats. There is a II/ systolic murmur. There is no gallop or rub noted, Abdomen - Soft. Liver and spleen are not enlarged. There is no abdominal mass or ascites noted and there is no inguinal adenopathy, Extremities - Currently no edema, Neurologic - No focal neurologic deficits noted. Lab/Imaging: Test performed on Dec 27, 2019 08:30 Magnesium 1.6 mg/dL Phosphorus 1.0 mg/dL Sodium 141 mmol/L Potassium 3.5 mmol/L Chloride 107 mmol/L CO2 22 mmol/L Anion Gap 15.5 BUN 5 mg/dL Creatinine 0.7 mg/dL Cr Clearance (Est) 120.63 mL/min eGFR 83.2 mL/min Glucose 131 mg/dL Calcium 5.4 mg/dL Protein, Total 5.9 g/dL Albumin 2.7 g/dL Globulin 3.2 g/dL Bilirubin, Total 0.2 mg/dL ALT (SGPT) 25 U/L AST (SGOT) 27 U/L Alkaline Phosphatase 169 IU/L ESR (Sed Rate) 48 mm/hr WBC 4.8 10 3/uL RBC 3.27 10 6/uL HGB 9.0 g/dL HCT 29.0 % MCV 88.7 fL MCH 27.5 pg MCHC 31.0 g/dL RDW 19.5 % Platelet Count 450 10 3/cmm MPV 11.8 fL Neutrophils 3.0 10 3/uL Lymphocytes 1.1 10 3/uL Monocytes 0.5 10 3/uL Eosinophils 0.0 10 3/uL Basophils 0.2 10 3/uL Neutrophil % 63.2 % Lymphocyte % 22.1 % Monocyte % 10.4 % Eosinophil % 0.8 % Basophils % 3.1 % Impression: 1. 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 She underwent resection/open biopsy of the extracranial portion of the mass on 07/20/2018. 2. She then underwent radiation, completed on 09/02/2018 to a total dose of 5000 cGy. 3. She has persistent open wound at the biopsy site. 4. She had associated IgG lambda monoclonal protein in the serum and 2% monoclonal plasma cells in the bone marrow, consistent with underlying myeloma. Initially it appeared to otherwise not be symptomatic. 5. She was found to have pulmonary emboli by CT pulmonary angiogram on 09/14/2018. She began anticoagulation with apixaban. Her other medical illnesses include: 6. Degenerative arthritis and degenerative disease of the spine with associated cervical and lumbar spinal stenosis. 7. Hypertension. 8. Endometriosis. 9. Anxiety/depression. During subsequent followup she had increasing pain in the left hip/buttock area. Her repeat protein electrophoresis studies showed only a slight increase in her M protein, but her repeat PET/CT on 02/03/2019 showed significant progression of lytic bone involvement in the left ilium. There was also possible involvement in the distal right femur. The area of lytic involvement in the calvarium was not metabolically active. On 02/23/2019 she began cycle 1 of Velcade/Revlimid/dexamethasone. She also was given an infusion of Zometa for the lytic bone involvement. Her treatment was complicated by [employer] toxicity and hypocalcemia. Her Velcade was put on hold. She stopped the Revlimid and dexamethasone as of 03/02/2019. At that point she was still having significant pain associated with the lytic bone involvement in the left ileum. During subsequent follow-up, the hypocalcemia improved. As of 03/09/2019 she was able to restart treatment with dose reductions in the Revlimid and dexamethasone. She had remained mildly anemic, but that appeared to be due to iron deficiency. As of her cycle 2 day 15 visit, she appeared to be doing well, and she continued to her treatment as scheduled. Subsequent to that visit, she developed severe diarrhea, and her treatment was put on hold. She continued with cycle 3 on 05/05/2019. She was given a further reduction in the Revlimid dosage to 10 mg daily on a day schedue with the Velcade and dexamethasone dosed weekly. Her treatment was put on hold at day 8 due to worsening neuropathy. She subsequently was able to continue treatment with Revlimid/dexamethasone, but the Velcade remained on hold. She then continued with cycle 4 on 06/21/2019. As of her follow-up visit on 07/19/2019 her treatment was put on hold due to multiple complaints, the most significant being increased fatigue and excessive somnolence. A subsequent restaging PET/CT showed no active sites of involvement. She continued, though, to have severe fatigue/somnolence despite adjustments in her medication regimen. She also continued to have significant musculoskeletal pain, and she had a persistent open wound in the area of the vertex of her scalp. Her repeat head MRI on 08/10/2019 showed no evidence of recurrent or progressive disease. With those findings, her treatment was transitioned to maintenance Revlimid at 5 mg daily, which she started following her visit on 08/17/2019. As of her followup visit on 11/28/2019 she appeared to be tolerating the maintenance Revlimid with acceptable toxicity, and there had been no obvious progression of the myeloma. During that time she was found to have B12 deficiency, and she had been showing some improvement with B12 replacement. However, at that point she still had mild anemia, and her transferrin saturation and ferritin levels were consistent with iron deficiency despite the fact that she had been on oral iron supplementation. She was given parenteral iron replacement with 2 infusions of Injectafer. She also was given denosumab 120 mg by ssubcutaneous injection for the lytic bone involvement. On 12/06/2019 she was admitted to the hospital with symptomatic hypocalcemia. She also had hypokalemia and hypophosphatemia. I was uncertain to what extent those abnormalities were due to the Injectafer, to the denosumab, or both. However, she continued to have persistent symptomatic hypocalemia and hypophosphatemia despite having both IV or oral replacement, and she required hospital admission again on 12/15/2019. During this time there has been a significant in her performance status. She also has developed shortness of breath and hypoxia, and a specific cause for that has not been determined. Plan: She will continue daily IV replacement with calcium gluconate and potassium phosphate for the duration of this week. She also continues oral replacement therapy with calcium, magnesium, potassium, and phosphorous supplements. Her myeloma therapy remains on hold. She will be scheduled for a followup visit next week. In the meantime, she also will be started on home oxgen. Signed By: Ruiz Rodriguez M.D. <<Signature on File>>
[2019-12-28 12:43] LABS: ABNORMAL PROTEIN BAND 1 0.3 g/dL (NONE DETECTED); ALBUMIN 2.3 g/dL (3.8-4.8); ALPHA 1 GLOBULIN 0.5 g/dL (0.2-0.3); ALPHA 2 GLOBULIN 0.9 g/dL (0.5-0.9); BETA 1 GLOBULIN 0.3 g/dL (0.4-0.6); BETA 2 GLOBULIN 0.3 g/dL (0.2-0.5); GAMMA GLOBULIN 0.7 g/dL (0.8-1.7)
[2019-12-28 16:16] LABS: KAPPA LIGHT CHAIN, FREE, SERUM 38.8 mg/L (3.3-19.4); KAPPA/LAMBDA LIGHT CHAINS FREE 0.23 (0.26-1.65); LAMBDA LIGHT CHAIN, FREE, SERU 167.5 mg/L (5.7-26.3)
[2019-12-29] MEDS: sodium chloride 0.9% 100 ML 20 ML (10:30)
[2019-12-30] MEDS: sodium chloride 0.9% 250 ML 75 ML IV (08:17)
[2019-12-30 08:36] LABS: Anion Gap 16.9 (5-19); Blood Urea Nitrogen 4 mg/dL (8-23); Carbon Dioxide 19 mmol/L (22-29); Chloride 105 mmol/L (98-107); Glomerular Filtration Rate 71.3 mL/min (90-130); Glucose 100 mg/dL (65-115); Magnesium 1.3 mg/dL (1.7-2.3); Osmolality Calculated 280 mOsm/kg (285-295); Potassium 3.9 mmol/L (3.5-5.1); Sodium 137 mmol/L (136-145)
[2019-12-30 08:46] LABS: Calcium 5.8 mg/dL (8.5-10.5)
--- NOTE | 2019-12-30 09:43 | XR_ITS ---
WS: [id number] AP and lateral upright chest, 12/30/2019 Clinical Data: SHORTNESS OF BREATH;COUGH Comparison: PA and lateral chest, 12/27/2019 Findings: The heart is slightly enlarged. There is a small left effusion. There is atelectasis and/or minimal pneumonia in the retrocardiac region. The right lung is clear. The pulmonary vascularity is not increased. The aortic arch and descending aorta show tortuosity. There are clips in the upper abd omen from surgery. XR/XR chest 2V* [id number] Impression: 1. No change in cardiomegaly and small left effusion. 2. Retrocardiac atelectasis and/or minimal pneumonia remains the same.
[2020-01-02] MEDS: sodium chloride 0.9% 250 ML 999 ML IV (09:20)
[2020-01-02 09:31] LABS: Basophils # 0.1 10^3/uL (0.0-0.1); Basophils % 2.1 %; Eosinophils # 0.2 10^3/uL (0.0-0.8); Eosinophils % 4.7 %; Hematocrit 33.1 % (37.0-47.0); Hemoglobin 10.2 g/dL (11.5-15.3); Lymphocytes # 1.1 10^3/uL (0.8-4.8); Lymphocytes % 26.8 %; Mean Corpuscular HGB Conc 30.8 g/dL (30.0-36.0); Mean Corpuscular Hemoglobin 27.1 pg (28.0-34.0); Mean Platelet Volume 10.8 fL (7.4-10.4); Monocytes # 0.4 10^3/uL (0.2-0.9); Monocytes % 9.9 %; Neutrophils # 2.4 10^3/uL (1.8-7.7); Neutrophils % 56.3 %; Nucleated Red Blood Cells % 0 %; Platelet Count 414 10^3/cmm (130-400); Red Blood Count 3.76 10^6/uL (4.1-5.3); Red Cell Distribution Width 19.5 % (12.1-15.1); White Blood Count 4.3 10^3/uL (4.0-10.0)
[2020-01-02 09:45] LABS: Alanine Aminotransferase 12 U/L (0-33); Albumin Level 2.9 g/dL (3.5-5.2); Alkaline Phosphatase 134 IU/L (35-105); Anion Gap 15.1 (5-19); Aspartate Amino Transferase 20 U/L (0-32); Blood Urea Nitrogen 7 mg/dL (8-23); Calcium 6.1 mg/dL (8.5-10.5); Carbon Dioxide 23 mmol/L (22-29); Chloride 107 mmol/L (98-107); Globulin 3.2 g/dL (1.3-4.6); Glomerular Filtration Rate 99.4 mL/min (90-130); Glucose 109 mg/dL (65-115); Magnesium 1.6 mg/dL (1.7-2.3); Phosphorus 1.1 mg/dL (2.5-4.5); Potassium 4.1 mmol/L (3.5-5.1); Sodium 141 mmol/L (136-145); Total Bilirubin 0.2 mg/dL (0.15-1.2); Total Protein 6.1 g/dL (6.6-8.7)
[2020-01-02 10:13] LABS: Calcium 5.9 mg/dL (8.5-10.5)
[2020-01-02] MEDS: acetaminophen 325 mg Tablet 650 MG PO (10:15)
[2020-01-02 10:37] LABS: 25 Hydroxy Vitamin D 22 ng/mL (30-100)
[2020-01-02 10:39] LABS: Erythrocyte Sedimentation Rate 36 mm/hr (0-15)
--- NOTE | 2020-01-02 17:21 | ONC FU_ITS ---
Dr. Rodriguez Patient Follow-Up Note Patient: Valentin Clark Unit #: [id number]: 1950 Dicatated By: Ruiz Rodriguez M.D.Date of Visit:Jan 02, 2020 Onc Med Follow-up/Prog Note Chief Complaint: Mulitple myeloma. 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 In March 2018 she had bumped her head at work and in the process of that she became aware of a small lump, though it was actually in a slightly different area. She then noticed that the lump was getting larger. Evaluation with head MRI on 06/07/2018 showed evidence of a right parietal occipital extra-axial neoplasm, felt to be most likely meningeal in origin. It was noted to exert mass effect on the right parietal and occipital lobes, but without associated midline shift or white matter parenchymal edema. The lesion was noted to invade through the calvarium and into the subcutaneous parietal occipital scalp soft tissues. The mass measured 5.7 x 3.5 x 6 cm. 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 The area of occlusion was noted to extend over approximately 4.3 cm. She was seen by Dr. Landry and subsequently referred for neurosurgery evaluation at [facility]. Initially they had considered possible surgical resection. Her further evaluation there apparently included laboratory findings which were suspicious for myeloma, and it was recommended that she have treatment with radiation. She was seen here for further management on 07/14/2018. She then returned to Dr. Landry, and on 07/20/2018 she underwent open biopsy/resection of the extracranial extent of the mass. 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 Her further evaluation included protein electrophoresis which showed an IgG lambda monoclonal protein in the serum quantitating at 0.48 g/dL. The serum free light chain assay showed elevated lambda light chain at 374.65 mg/L with decreased kappa/lambda ratio at 0.06. The 24-hour urine protein electrophoresis showed no monoclonal protein. There were no other areas of lytic bone involvement noted on her skeletal survey. Bone marrow aspiration/biopsy on 07/30/2018 showed a monotypic plasma cell population, but it comprised only 2% of the total cellularity. A FISH panel for myeloma was unrevealing, and the standard chromosome analysis was normal. She was referred to Dr. Karu, and she began radiation to the lesion on 07/30/2018. She completed treatment on 09/02/2018 to a total dose of 5,000 cGy. She had evaluation with CT pulmonary angiogram on 09/14/2018. It showed moderate bilateral pulmonary embolic burden. She began on anticoagulation with apixaban. During her subsequent follow-up she continued to have an open wound at the site of the plasmacytoma in the parietal-occipital scalp region. As of her follow-up visit on 10/19/2018 her M protein was stable 0.37 g/dL. In the absence of any evidence of symptomatic myeloma, she had otherwise just continued on observation/expectant management. However, due to her persistent scalp wound she had a repeat brain MRI on 01/11/2019. It showed evidence of residual neoplastic process at the resection site. There was associated dural involvement but with improved signal characteristics and decreased enhancement compared to the study from September 2018. She was seen for a follow-up visit on 01/20/2019. In view of the MRI findings, she had further evaluation with PET/CT on 02/03/2019. It showed increase in size and expansile hypermetabolic lesion within the left ilium with extension of hypermetabolic tumor into the adjacent left iliac muscle. There was a new hypermetabolic lytic process within the right S1/S2 region. A large lytic mass within the posterior calvarium did not appear to have active hypermetabolism. Also noted, though, was a hypermetabolic lesion within the medullary canal of the distal left femoral diametaphysis and an additional hypermetabolic focus in the anterior cortex of the distal right femur concerning for additional areas of myeloma. In the setting of obvious progression of her myeloma, she was recommended to begin a trial of therapy with Velcade/Revlimid/dexamethasone. Her other medical illnesses include hypertension and degenerative arthritis/degenerative disease of the spine. She has associated cervical and lumbar spinal stenosis. She has a history of endometriosis, and she has anxiety/depression. She is a nonsmoker. INTERIM HISTORY: She began cycle 1 of VRd on 02/23/2019. At that time she also received an infusion of IV Zometa for the lytic bone involvement. At that time, there was a slight increase in her baseline creatinine level to 1.2 mg/dL, and did opt to reduce her Revlimid dosage because of that. She experienced significant toxicity following her day 1 treatment, mainly having become listless and out of it over the next 4-5 days. She also lost her appetite. Her follow-up lab studies showed a drop in her calcium from baseline 10.3 mg/dL to 6.5 mg/dL with albumin 3.5 g/dL. With that finding, I did opt to hold her further Velcade, but she continued Revlimid and dexamethasone. As of 03/09/2019 she restarted treatment with Velcade at 1.3 mg/m??? weekly with Revlimid reduced to 15 mg daily on a 21/28 day schedule and the dexamethasone dosage reduced to 20 mg weekly. As of her day 15 visit, she was tolerating the treatment well. At that time she received the full dosage of Velcade, and she continued Revlimid 15 mg daily for 7 more days. She had subsequently developed diarrhea, and at her followup visit on 04/07/2019 her treatment was put on hold. She eventually continued with cycle 3 on 05/05/2019 with the Revlimid dosage further reduced to 10 mg daily on a 21/28 day schedule and with the Velcade and dexamethasone dosed weekly. Her repeat SPEP at that time showed residual M protein quantitating at 0.3 g/dL. The free light chain assay showed kappa light chain 100 mg/L, lambda light chain 122 mg/L, and kappa/lambda ratio 0.82. Her treatment was put on hold again at day 8 due to worsening neuropathy. She subsequently was able to continue the Revlimid and dexamethasone, but the Velcade remained on hold. Her repeat protein electrophoresis on 06/09/2019 showed stable M protein at 0.3 g/dL. The serum free light chain assay showed normal kappa/lambda ratio at 0.84. She was seen for a follow-up visit on 06/21/2019. At that point she appeared stable clinically. Her blood counts were adequate, and she continued with her 4th cycle of treatment. Her repeat protein electrophoresis on 07/13/2019 showed residual M protein quantitating at 0.2 g/dL. The free light chain assay showed elevated kappa light chain at 31.0 mg/L and elevated lambda light chain at 33.0 mg/L with normal kappa/lambda ratio at 0.94. Her 24-hour urine protein electrophoresis showed no detectable monoclonal protein. She was seen for a follow-up visit on 07/19/2019. At that point she complained of increased fatigue and excessive somnolence, and I did opt to put her treatment on hold. A subsequent restaging PET/CT showed no FDG avid sites of involvement. Her repeat head MRI on 08/10/2019 showed no evidence of recurrent or progressive disease. With those findings, I opted to transition her treatment to maintenance Revlimid at 5 mg daily, which she started following her visit on 08/17/2019. Her further laboratory studies on 09/22/2019 also showed a low B12 level at 189 pg/mL, and she subsequently started B12 replacement therapy. A sleep study in October 2019 showed moderate obstructive sleep apnea. At her follow-up visit on 11/28/2019 she was still mildly anemic, and transferrin saturation was still low at 17% despite being on oral iron replacement. As such, she was then given parenteral iron replacement with infusions of Injectafer on 11/28/2019 and on 12/05/2019. With the 11/28 visit she also was given denosumab 120 mg by subcutaneous injection for the lytic bone involvement. On 12/06/2019 she was admitted to the hospital with symptomatic hypocalcemia, serum calcium 5.9 mg/dL with albumin 2.9 g/dL. Renal function was stable with creatinine 1.0 mg/dL, but her potassium also was low at 3.2 mmol/L. She was given IV calcium and potassium replacement. She then continued further IV replacement as an outpatient. Despite that she was readmitted to the hospital with hypocalcemia on 12/15/2019. She was discharged home on 12/23/2019. Her evaluation included CT pulmonary angiogram which showed no evidence of pulmonary embolism. There was evidence of cardiomegaly, a small pericardial effusion, and small bilateral pleural effusions. Echocardiogram showed small, hemodynamically insignificant pericardial effusion and normal left ventricular function. She then returned here on 12/27/2019 and she continued daily IV fluid and electrolyte replacement for the duration of that week. She is seen for a followup visit. She continues to have very poor energy and very limited activity. Her ECOG score is 3. She also continues to complain that she has no appetite. She has no fever or night sweats. She complains that her lungs hurt really bad and they feel tight. She is short of breath with activity. She says her cough is getting less, but she has had green sinus/nasal drainage. She has had sores in her lower lip, and she continues to have some difficulty swallowing. As of Thursday she was still having waves of nausea/dry heaves, but she thinks that was just related to the cough. She still has a lot of belching. For the past 3 days her stools have been loose. Bladder function remains adequate, but her urine volume is not good. She is not have any significant joint or bone pain. She says the muscle cramps are starting again. She has numbness in her fingers and toes off and on. Medications: Acetaminophen 1 Tablet (of 650 mg) Oral PRN, Biotin Plus Keratin 1 Tablet (of 23142 mcg) Oral daily, Bisacodyl 1 Tablet (of 5 mg) Tablet, enteric coated Oral PRN, Calcitriol 2 Capsule (of 0.5 mcg) Oral daily, Calcium Citrate + D 1 Capsule (of 600-800 mg - Units) Tablet Oral daily, Eliquis 1 Tablet (of 5 mg) Oral b.i.d., Essiac Tonic 1 Capsule Oral b.i.d., FLUoxetine HCl 1 Capsule (of 30 mg) Oral daily, Furosemide 1 Tablet (of 40 mg) Oral daily on Every Other Day, GoodSense Stimulant Laxative 2 Tablet (of 8.6-50 mg) Oral t.i.d. PRN, Loratadine 1 Tablet (of 10 mg) Oral daily PRN, LORazepam 1 Tablet (of 0.5 mg) Oral b.i.d., Magnesium 2 Tablet (of 400 mg) Oral b.i.d., Metoprolol Tartrate 0.5 Tablet (of 25 mg) Oral daily, Pantoprazole Sodium 1 Tablet (of 40 mg) Tablet, enteric coated Oral b.i.d., Potassium Chloride ER 1 Tablet (of 20 meq) Tablet, controlled release Oral b.i.d., Potassium Chloride ER 1 Tablet (of 20 meq) Tablet, controlled release Oral b.i.d., Zoe 1 patch(es) Patch Topical daily, Probiotic Acidophilus 2 Capsule Tablet Oral daily, Regranex 1 (0.01 %) Gel (jelly) Topical daily PRN, Revlimid 1 Tablet (of 5 mg) Capsule Oral daily, Sulfamethoxazole-Trimethoprim (800-160 mg) Tablet Oral Take as Directed, Tums 1 Tablet (of 1000 mg) Tablet, chewable Oral daily, Ventolin HFA 1 (108 (90 base) mcg/act) Aerosol, solution Inhalation PRN, Vitamin B12 1 Tablet (of 2500 mg) Tablet, controlled release Oral daily, Vitamin D3 1 Tablet (of 2000 Units) Oral b.i.d., Vitamin D3 1 Capsule (of 2000 Units) Oral daily Allergies: BusPIRone HCl, Codeine and Related, Levaquin, and Morphine Derivatives. Review of Systems: Constitutional - She has very little activity. She has no appetite. No fever, chills, hot flashes, or night sweats. ECOG score is 3, ENMT - She has had green sinus/nasal drainage. She has had sores in her lower inner lip. No sore throat. She has some difficulty swallowing, Hematologic/Lymphatic - She bruises easily, Respiratory - She has shortness of breath. She has a cough that produces thick, clear phlegm. No pleuritic pain or hemoptysis, Cardiovascular - No angina pain. No palpitations, Gastrointestinal - No nausea or vomiting. No heartburn or acid reflux. She has a loose stool every time she eats. They are coffee ground colored. No blood in the stool or black stools, Genitourinary (F) - She continues to complain that she doesn't have good urine volume. No dysuria or hematuria. No urinary frequency. No urgency or incontinence, Musculoskeletal - She is starting to have some muscle cramping, Integumentary - No skin complications, Neurologic - No headache or dizziness. She has numbness and tingling off and on in her toes and fingers, Psychiatric - She has had anxiety. She has been feeling down lately. No insomnia. Vital Signs: Performed on Jan 02, 2020 08:24 Height - 63.50 in Weight - 214.6 lbs (LOW) BSA - 2.00 sq.m BMI - 37.42 (HIGH) Temperature - 97.0 F (LOW) Pulse - 75 /min Respiration - 19 /min BP - 127/65 mm(hg) O2 Sat - 94 % (LOW) Pain - 5 Physical Examination: Constitutional - She appears somewhat weak generally, Eyes - Sclerae nonicteric. Conjunctivae clear, ENMT - No lesions noted in the oral cavity, Hematologic/Lymphatic - No cervical, clavicular, or axillary adenopathy, Respiratory - Lungs sound clear, Cardiovascular - Heart rhythm is regular. There is a II/ systolic murmur. There is no gallop or rub noted, Abdomen - Soft. Liver and spleen are not enlarged. There is no abdominal mass or ascites noted and there is no inguinal adenopathy, Extremities - No edema, Integumentary - She has multiple excoriations, but they appear to be healing, Neurologic - No focal neurologic deficits noted. Lab/Imaging: Test performed on Jan 02, 2020 09:16 Magnesium 1.6 mg/dL Phosphorus 1.1 mg/dL Sodium 141 mmol/L Vitamin D (25-Hydroxy), Total 22 ng/mL Potassium 4.1 mmol/L Chloride 107 mmol/L CO2 23 mmol/L Anion Gap 15.1 BUN 7 mg/dL Creatinine 0.6 mg/dL Cr Clearance (Est) 137.9000 mL/min eGFR 99.4 mL/min Glucose 109 mg/dL Calcium 6.1 mg/dL Protein, Total 6.1 g/dL Albumin 2.9 g/dL Globulin 3.2 g/dL Bilirubin, Total 0.2 mg/dL ALT (SGPT) 12 U/L AST (SGOT) 20 U/L Alkaline Phosphatase 134 IU/L ESR (Sed Rate) 36 mm/hr WBC 4.3 10 3/uL RBC 3.76 10 6/uL HGB 10.2 g/dL HCT 33.1 % MCV 88.0 fL MCH 27.1 pg MCHC 30.8 g/dL RDW 19.5 % Platelet Count 414 10 3/cmm MPV 10.8 fL Neutrophils 2.4 10 3/uL Lymphocytes 1.1 10 3/uL Monocytes 0.4 10 3/uL Eosinophils 0.2 10 3/uL Basophils 0.1 10 3/uL Neutrophil % 56.3 % Lymphocyte % 26.8 % Monocyte % 9.9 % Eosinophil % 4.7 % Basophils % 2.1 % Impression: 1. 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 She underwent resection/open biopsy of the extracranial portion of the mass on 07/20/2018. 2. She then underwent radiation, completed on 09/02/2018 to a total dose of 5000 cGy. 3. She has persistent open wound at the biopsy site. 4. She had associated IgG lambda monoclonal protein in the serum and 2% monoclonal plasma cells in the bone marrow, consistent with underlying myeloma. Initially it appeared to otherwise not be symptomatic. 5. She was found to have pulmonary emboli by CT pulmonary angiogram on 09/14/2018. She began anticoagulation with apixaban. Her other medical illnesses include: 6. Degenerative arthritis and degenerative disease of the spine with associated cervical and lumbar spinal stenosis. 7. Hypertension. 8. Endometriosis. 9. Anxiety/depression. During subsequent followup she had increasing pain in the left hip/buttock area. Her repeat protein electrophoresis studies showed only a slight increase in her M protein, but her repeat PET/CT on 02/03/2019 showed significant progression of lytic bone involvement in the left ilium. There was also possible involvement in the distal right femur. The area of lytic involvement in the calvarium was not metabolically active. On 02/23/2019 she began cycle 1 of Velcade/Revlimid/dexamethasone. She also was given an infusion of Zometa for the lytic bone involvement. Her treatment was complicated by [employer] toxicity and hypocalcemia. Her Velcade was put on hold. She stopped the Revlimid and dexamethasone as of 03/02/2019. At that point she was still having significant pain associated with the lytic bone involvement in the left ileum. During subsequent follow-up, the hypocalcemia improved. As of 03/09/2019 she was able to restart treatment with dose reductions in the Revlimid and dexamethasone. She had remained mildly anemic, but that appeared to be due to iron deficiency. As of her cycle 2 day 15 visit, she appeared to be doing well, and she continued to her treatment as scheduled. Subsequent to that visit, she developed severe diarrhea, and her treatment was put on hold. She continued with cycle 3 on 05/05/2019. She was given a further reduction in the Revlimid dosage to 10 mg daily on a day schedue with the Velcade and dexamethasone dosed weekly. Her treatment was put on hold at day 8 due to worsening neuropathy. She subsequently was able to continue treatment with Revlimid/dexamethasone, but the Velcade remained on hold. She then continued with cycle 4 on 06/21/2019. As of her follow-up visit on 07/19/2019 her treatment was put on hold due to multiple complaints, the most significant being increased fatigue and excessive somnolence. A subsequent restaging PET/CT showed no active sites of involvement. She continued, though, to have severe fatigue/somnolence despite adjustments in her medication regimen. She also continued to have significant musculoskeletal pain, and she had a persistent open wound in the area of the vertex of her scalp. Her repeat head MRI on 08/10/2019 showed no evidence of recurrent or progressive disease. With those findings, her treatment was transitioned to maintenance Revlimid at 5 mg daily, which she started following her visit on 08/17/2019. As of her followup visit on 11/28/2019 she appeared to be tolerating the maintenance Revlimid with acceptable toxicity, and there had been no obvious progression of the myeloma. During that time she was found to have B12 deficiency, and she had been showing some improvement with B12 replacement. However, at that point she still had mild anemia, and her transferrin saturation and ferritin levels were consistent with iron deficiency despite the fact that she had been on oral iron supplementation. She was given parenteral iron replacement with 2 infusions of Injectafer. She also was given denosumab 120 mg by ssubcutaneous injection for the lytic bone involvement. On 12/06/2019 she was admitted to the hospital with symptomatic hypocalcemia. She also had hypokalemia and hypophosphatemia. I was uncertain to what extent those abnormalities were due to the Injectafer, to the denosumab, or both. However, she continued to have persistent symptomatic hypocalemia and hypophosphatemia despite having both IV or oral replacement, and she required hospital admission again on 12/15/2019. During this time there was a significant in her performance status. She also developed shortness of breath and hypoxia. A specific cause for that was not determined. Following her hospitalization she is continued outpatient IV fluid and electrolyte replacement along with oral calcium, magnesium, and phosphorus supplements. She continues to have very limited activity and she continues to have shortness of breath. Her calcium level has come up some and her magnesium level is just slightly low. Her potassium is now back up to normal. She still has low phosphorous. Plan: She will be given additional IV replacement with calcium gluconate and potassium phosphate for 3 days this week. She continues oral calcium and vitamin D replacement therapy, but I will have her stop oral magnesium and phosphorous supplements due to the loose stools. Her myeloma therapy remains on hold. She will be scheduled for a followup visit in one week. Signed By: Ruiz Rodriguez M.D. <<Signature on File>>
[2020-01-03 07:01] LABS: PROTEIN, TOTAL 5.2 g/dL (6.1-8.1)
[2020-01-03 11:08] LABS: ABNORMAL PROTEIN BAND 1 0.3 g/dL (NONE DETECTED); ALBUMIN 2.5 g/dL (3.8-4.8); ALPHA 1 GLOBULIN 0.4 g/dL (0.2-0.3); ALPHA 2 GLOBULIN 0.8 g/dL (0.5-0.9); BETA 1 GLOBULIN 0.4 g/dL (0.4-0.6); BETA 2 GLOBULIN 0.3 g/dL (0.2-0.5); GAMMA GLOBULIN 0.8 g/dL (0.8-1.7)
[2020-01-03 15:07] LABS: KAPPA LIGHT CHAIN, FREE, SERUM 40.3 mg/L (3.3-19.4); KAPPA/LAMBDA LIGHT CHAINS FREE 0.22 (0.26-1.65)
[2020-01-04] MEDS: acetaminophen 325 mg Tablet 650 MG PO (12:20)
[2020-01-06] MEDS: acetaminophen 325 mg Tablet 650 MG PO (08:25)
[2020-01-06 11:16] LABS: Add Urine Microscopic? NO
[2020-01-06 11:20] LABS: Bilirubin Urine Neg (NEGATIVE); Blood Urine Neg (Negative); Glucose Urine UA Norm (Normal); Ketones Urine Negative (Negative); Leukocyte Esterase Urine Negative (Negative); Nitrate Urine Negative (Negative); Protein Urine Neg (Negative); Urine Appearance Clear (CLEAR); Urine Color Straw (Yellow); Urobilinogen Urine Norm (Negative); pH Urine 6.5 (5-7)
[2020-01-09 09:46] LABS: Anion Gap 18.7 (5-19); Blood Urea Nitrogen 7 mg/dL (8-23); Calcium 7.7 mg/dL (8.5-10.5); Carbon Dioxide 19 mmol/L (22-29); Chloride 104 mmol/L (98-107); Glomerular Filtration Rate 71.3 mL/min (90-130); Glucose 157 mg/dL (65-115); Magnesium 1.6 mg/dL (1.7-2.3); Osmolality Calculated 285 mOsm/kg (285-295); Phosphorus 1.1 mg/dL (2.5-4.5); Potassium 3.7 mmol/L (3.5-5.1); Sodium 138 mmol/L (136-145)
--- NOTE | 2020-01-10 09:12 | ONC FU_ITS ---
[facility] Patient Note Patient: Valentin Clark Unit #: [id number]: [id number] Dictated By: Sue PatelDate of Visit: Jan 09, 2020 Onc MED Follow-Up/Prog Note Chief Complaint: Multiple myeloma. 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 In March 2018 she had bumped her head at work and in the process of that she became aware of a small lump, though it was actually in a slightly different area. She then noticed that the lump was getting larger. Evaluation with head MRI on 06/07/2018 showed evidence of a right parietal occipital extra-axial neoplasm, felt to be most likely meningeal in origin. It was noted to exert mass effect on the right parietal and occipital lobes, but without associated midline shift or white matter parenchymal edema. The lesion was noted to invade through the calvarium and into the subcutaneous parietal occipital scalp soft tissues. The mass measured 5.7 x 3.5 x 6 cm. 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 The area of occlusion was noted to extend over approximately 4.3 cm. She was seen by Dr. Landry and subsequently referred for neurosurgery evaluation at [facility]. Initially they had considered possible surgical resection. Her further evaluation there apparently included laboratory findings which were suspicious for myeloma, and it was recommended that she have treatment with radiation. She was seen here for further management on 07/14/2018. She then returned to Dr. Landry, and on 07/20/2018 she underwent open biopsy/resection of the extracranial extent of the mass. 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 Further evaluation included protein electrophoresis which showed an IgG lambda monoclonal protein in the serum quantitating at 0.48 g/dL. The serum free light chain assay showed elevated lambda light chain at 374.65 mg/L with decreased kappa/lambda ratio at 0.06. The 24-hour urine protein electrophoresis showed no monoclonal protein. There were no other areas of lytic bone involvement noted on her skeletal survey. Bone marrow aspiration/biopsy on 07/30/2018 showed a monotypic plasma cell population, but it comprised only 2% of the total cellularity. A FISH panel for myeloma was unrevealing, and the standard chromosome analysis was normal. She was referred to Dr. Kuar, and she began radiation to the lesion on 07/30/2018. She completed treatment on 09/02/2018 to a total dose of 5,000 cGy. She had evaluation with CT pulmonary angiogram on 09/14/2018. It showed moderate bilateral pulmonary embolic burden. She began on anticoagulation with apixaban. During her subsequent follow-up she continued to have an open wound at the site of the plasmacytoma in the parietal-occipital scalp region. As of her follow-up visit on 10/19/2018 her M protein was stable 0.37 g/dL. In the absence of any evidence of symptomatic myeloma, she had otherwise just continued on observation/expectant management. However, due to her persistent scalp wound she had a repeat brain MRI on 01/11/2019. It showed evidence of residual neoplastic process at the resection site. There was associated dural involvement but with improved signal characteristics and decreased enhancement compared to the study from September 2018. She was seen for a follow-up visit on 01/20/2019. In view of the MRI findings, she had further evaluation with PET/CT on 02/03/2019. It showed increase in size and expansile hypermetabolic lesion within the left ilium with extension of hypermetabolic tumor into the adjacent left iliac muscle. There was a new hypermetabolic lytic process within the right S1/S2 region. A large lytic mass within the posterior calvarium did not appear to have active hypermetabolism. Also noted, though, was a hypermetabolic lesion within the medullary canal of the distal left femoral diametaphysis and an additional hypermetabolic focus in the anterior cortex of the distal right femur concerning for additional areas of myeloma. In the setting of obvious progression of her myeloma, she was recommended to begin a trial of therapy with Velcade/Revlimid/dexamethasone. Her other medical illnesses include hypertension and degenerative arthritis/degenerative disease of the spine. She has associated cervical and lumbar spinal stenosis. She has a history of endometriosis, and she has anxiety/depression. She is a nonsmoker. INTERIM HISTORY: She began cycle 1 of VRd on 02/23/2019. At that time she also received an infusion of IV Zometa for the lytic bone involvement. At that time, there was a slight increase in her baseline creatinine level to 1.2 mg/dL, and did opt to reduce her Revlimid dosage because of that. She experienced significant toxicity following her day 1 treatment, mainly having become listless and out of it over the next 4-5 days. She also lost her appetite. Her follow-up lab studies showed a drop in her calcium from baseline 10.3 mg/dL to 6.5 mg/dL with albumin 3.5 g/dL. With that finding, I did opt to hold her further Velcade, but she continued Revlimid and dexamethasone. As of 03/09/2019 she restarted treatment with Velcade at 1.3 mg/m??? weekly with Revlimid reduced to 15 mg daily on a 21/28 day schedule and the dexamethasone dosage reduced to 20 mg weekly. As of her day 15 visit, she was tolerating the treatment well. At that time she received the full dosage of Velcade, and she continued Revlimid 15 mg daily for 7 more days. She had subsequently developed diarrhea, and at her followup visit on 04/07/2019 her treatment was put on hold. She eventually continued with cycle 3 on 05/05/2019 with the Revlimid dosage further reduced to 10 mg daily on a 21/28 day schedule and with the Velcade and dexamethasone dosed weekly. Her repeat SPEP at that time showed residual M protein quantitating at 0.3 g/dL. The free light chain assay showed kappa light chain 100 mg/L, lambda light chain 122 mg/L, and kappa/lambda ratio 0.82. Her treatment was put on hold again at day 8 due to worsening neuropathy. She subsequently was able to continue the Revlimid and dexamethasone, but the Velcade remained on hold. Her repeat protein electrophoresis on 06/09/2019 showed stable M protein at 0.3 g/dL. The serum free light chain assay showed normal kappa/lambda ratio at 0.84. She was seen for a follow-up visit on 06/21/2019. At that point she appeared stable clinically. Her blood counts were adequate, and she continued with her 4th cycle of treatment. Her repeat protein electrophoresis on 07/13/2019 showed residual M protein quantitating at 0.2 g/dL. The free light chain assay showed elevated kappa light chain at 31.0 mg/L and elevated lambda light chain at 33.0 mg/L with normal kappa/lambda ratio at 0.94. Her 24-hour urine protein electrophoresis showed no detectable monoclonal protein. She was seen for a follow-up visit on 07/19/2019. At that point she complained of increased fatigue and excessive somnolence, and Dr Rodriguez did opt to put her treatment on hold. A subsequent restaging PET/CT showed no FDG avid sites of involvement. Her repeat head MRI on 08/10/2019 showed no evidence of recurrent or progressive disease. With those findings, it was opted to transition her treatment to maintenance Revlimid at 5 mg daily, which she started following her visit on 08/17/2019. Her further laboratory studies on 09/22/2019 also showed a low B12 level at 189 pg/mL, and she subsequently started B12 replacement therapy. A sleep study in October 2019 showed moderate obstructive sleep apnea. At her follow-up visit on 11/28/2019 she was still mildly anemic, and transferrin saturation was still low at 17% despite being on oral iron replacement. As such, she was then given parenteral iron replacement with infusions of Injectafer on 11/28/2019 and on 12/05/2019. With the 11/28 visit she also was given denosumab 120 mg by subcutaneous injection for the lytic bone involvement. On 12/06/2019 she was admitted to the hospital with symptomatic hypocalcemia, serum calcium 5.9 mg/dL with albumin 2.9 g/dL. Renal function was stable with creatinine 1.0 mg/dL, but her potassium also was low at 3.2 mmol/L. She was given IV calcium and potassium replacement. She then continued further IV replacement as an outpatient. Despite that she was readmitted to the hospital with hypocalcemia on 12/15/2019. She was discharged home on 12/23/2019. Her evaluation included CT pulmonary angiogram which showed no evidence of pulmonary embolism. There was evidence of cardiomegaly, a small pericardial effusion, and small bilateral pleural effusions. Echocardiogram showed small, hemodynamically insignificant pericardial effusion and normal left ventricular function. She then returned here on 12/27/2019 and she continued daily IV fluid and electrolyte replacement for the duration of that week. Ms Clark is here today for followup and reassessment of her calcium, phosphrus and potassium. She states that she has had a hard time with her appetite. She states she just does not have any. She states nothing tastes good or sounds good. She denies any further mouth sores she states actually they are better. She has had no fever or chills. She denies leg cramps or palpitations. She is concerned she has had a significant weight loss but we discussed that this is probably because she is not eating. She states she can usually try to eat 1 meal a day . She is unable to tolerate any Ensure/boost nutritional supplements. She states she is lactose intolerance plus she states that they taste terrible. She states that when she does eat she can tolerate it- she is swallowing well and it does not make her nauseated. Food is just not overall appealing. She denies any new pain. She states that her urine is some better this week. She has had no recurrent diarrhea but only started her probiotics and antidiarrheal medicine yesterday. She states her stools wax and wane from semi-formed to water . She continues to feel somewhat weak overall but feels that that is some better as her calcium comes up. She is having persistent intermittent heartburn but states overall it is dramatically improved with Protonix and she does not want to change any other agents at this time. She has no new concerns. Her ECOG is 2. Past Medical History: Anxiety/depression Cervical stenosis Degenerative arthritis Degenerative disease of the spine Depression Endometriosis Hypertension Lumbar stenosis Past Surgical History: Bilateral cataract excisions Cholecystectomy/gastric stapling Removal of ovarian cyst x 2 Tonsillectomy Allergies: BusPIRone HCl, Codeine and Related, Levaquin, and Morphine Derivatives. Medications: Acetaminophen 1 Tablet (of 650 mg) Oral PRN Amoxicillin-Pot Clavulanate 1 (875-125 mg) Tablet Oral b.i.d. for 7 days Anti-Diarrheal 1 (2 mg) Tablet Oral daily PRN Biotin Plus Keratin 1 Tablet (of 71294 mcg) Oral daily Bisacodyl 1 Tablet (of 5 mg) Tablet, enteric coated Oral PRN Calcitriol 2 Capsule (of .25 mcg) Oral daily Calcium Citrate + D 1 Capsule (of 600-800 mg - Units) Tablet Oral daily Eliquis 1 Tablet (of 5 mg) Oral b.i.d. FLUoxetine HCl 1 Capsule (of 30 mg) Oral daily Furosemide 1 Tablet (of 40 mg) Oral daily on Every Other Day GoodSense Stimulant Laxative 2 Tablet (of 8.6-50 mg) Oral t.i.d. PRN Loratadine 1 Tablet (of 10 mg) Oral daily PRN LORazepam 1 Tablet (of 0.5 mg) Oral b.i.d. Magnesium 2 Tablet (of 400 mg) Oral b.i.d. Metoprolol Tartrate 0.5 Tablet (of 25 mg) Oral b.i.d. Pantoprazole Sodium 1 Tablet (of 40 mg) Tablet, enteric coated Oral b.i.d. Potassium Chloride ER 1 Tablet (of 20 meq) Tablet, controlled release Oral b.i.d. Zoe 1 patch(es) Patch Topical daily Probiotic Acidophilus 2 Capsule Tablet Oral daily Regranex 1 (0.01 %) Gel (jelly) Topical daily PRN Revlimid 1 Tablet (of 5 mg) Capsule Oral daily Sulfamethoxazole-Trimethoprim (800-160 mg) Tablet Oral Take as Directed Tums 1 Tablet (of 1000 mg) Tablet, chewable Oral daily Ventolin HFA 1 (108 (90 base) mcg/act) Aerosol, solution Inhalation PRN Vitamin B12 1 Tablet (of 2500 mg) Tablet, controlled release Oral daily Vitamin D3 1 Capsule (of 2000 Units) Oral daily Family History: Ms. Clark's mother at age 84: emphysema, and congestive heart failure. Ms. Clark's father at age 53: heart disease, and myocardial infarction. Ms. Clark has 2 brothers: 1 alive, 1 . Ms. Clark's first brother's colon cancer, and type ii diabetes. Another brother's colon cancer. She has 2 sisters: 2 alive. Ms. Clark's first sister's herat disease, and type ii diabetes. Father of heart attack age 51. Mother with emphysema at age 78. She also had heart disease and diabetes. A sister has diabetes and heart disease. A brother has diabetes and he has been treated for colon cancer. A maternal uncle also had colon cancer, and a maternal aunt had breast cancer. 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 Ms. Clark has never smoked. She drinks occasionally. She is a nonsmoker. She has had just rare alcohol use. Review Of Symptoms: Constitutional Denies fevers, chills, night sweats, excessive-worsening fatigue. No appetite and food tastes bad. Allergic/Immunologic No reactions. Eyes Denies significant visual changes. No diplopia. No amaurosis. ENMT Denies changes in hearing, sore throat, mouth sores, difficulty or changes in swallowing ability, and/or sinus drainage. Endocrine No diabetes, thyroid disease or hormone replacement. Denies hot flashes or night sweats. Hematologic/Lymphatic Denies easy bruising or bleeding. The patient denies any tender or palpable lymph nodes. Respiratory Denies dyspnea on exertion, chest pain, cough or hemoptysis. Denies orthopnea. Cardiovascular Denies anginal chest pain, palpitations or orthopnea. Gastrointestinal Denies nausea, vomiting, GI bleeding, or constipation. Denies change in bowel habits and/or stool color, no heartburn. She states stools vary from some form to watery. Just started probiotics and antidiarrheal medication yesterday. Genitourinary (F) No hematuria, hesitancy, incontinence, vaginal bleeding, discharge or other problems with urination. Musculoskeletal Denies joint pain, swelling or redness. No decreased range of motion. Integumentary Denies chronic rashes, inflammation, ulcerations or skin changes. Neurologic Denies headache, blurred vision, and no areas of focal weakness or numbness. Normal gait. No sensory problems. Psychiatric Denies insomnia, depression, olivia or mood swings. Vital Signs: Performed on Jan 09, 2020 10:16 Height - 63.50 in Weight - 201.0 lbs (LOW) BSA - 1.95 sq.m BMI - 35.05 (HIGH) Temperature - 98.4 F Pulse - 71 /min Respiration - 20 /min BP - 94/60 mm(hg) O2 Sat - 92 % (LOW) Pain - 0 Fatigue - 7,2 - Ambulatory/capable of all self-care, unable to perform any work activities. Up and about more than 50% of waking hours. (ECOG) Physical Examination: Constitutional Alert, oriented, no acute distress. Skin pink, warm and dry. she has documented weight loss of 16 pounds since 12-12-2019 visit. Head Normocephalic; atraumatic. Eyes Conjunctivae and sclerae are clear and without icterus. Pupils are reactive and equal. Neck Supple without masses or thyromegaly. No jugular venous distension. Hematologic/Lymphatic No petechiae or purpura. No tender or palpable lymph nodes in the cervical or supraclavicular areas. Respiratory Lungs are clear to auscultation without rhonchi or wheezing. Cardiovascular Regular rate and rhythm of heart without murmurs,clicks, gallops or rubs. Abdomen Non-tender, non-distended, no masses, ascites. .Good bowel sounds noted in all quads. No guarding or rebound tenderness. No pulsatile masses. Back/Spine Non-tender to palpation. Extremities No visible deformities, no cyanosis, clubbing or edema. Pulses 4+ and equal bilaterally. Musculoskeletal No tenderness or swelling. Integumentary No rashes or lesions. Psychiatric Alert and oriented times three. Coherent speech. Verbalizes understanding of our discussions today. Laboratory:Test performed on Jan 09, 2020 09:12 Magnesium 1.6 mg/dL Phosphorus 1.1 mg/dL Sodium 138 mmol/L Potassium 3.7 mmol/L Chloride 104 mmol/L CO2 19 mmol/L Anion Gap 18.7 Glucose 157 mg/dL BUN 7 mg/dL Creatinine 0.8 mg/dL Cr Clearance (Est) 96.87 mL/min eGFR 71.3 mL/min Calcium 7.7 mg/dL Impression: 1. 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 She underwent resection/open biopsy of the extracranial portion of the mass on 07/20/2018. 2. She then underwent radiation, completed on 09/02/2018 to a total dose of 5000 cGy. 3. She has persistent open wound at the biopsy site. 4. She had associated IgG lambda monoclonal protein in the serum and 2% monoclonal plasma cells in the bone marrow, consistent with underlying myeloma. Initially it appeared to otherwise not be symptomatic. 5. She was found to have pulmonary emboli by CT pulmonary angiogram on 09/14/2018. She began anticoagulation with apixaban. Her other medical illnesses include: 6. Degenerative arthritis and degenerative disease of the spine with associated cervical and lumbar spinal stenosis. 7. Hypertension. 8. Endometriosis. 9. Anxiety/depression. During subsequent followup she had increasing pain in the left hip/buttock area. Her repeat protein electrophoresis studies showed only a slight increase in her M protein, but her repeat PET/CT on 02/03/2019 showed significant progression of lytic bone involvement in the left ilium. There was also possible involvement in the distal right femur. The area of lytic involvement in the calvarium was not metabolically active. On 02/23/2019 she began cycle 1 of Velcade/Revlimid/dexamethasone. She also was given an infusion of Zometa for the lytic bone involvement. Her treatment was complicated by [employer] toxicity and hypocalcemia. Her Velcade was put on hold. She stopped the Revlimid and dexamethasone as of 03/02/2019. At that point she was still having significant pain associated with the lytic bone involvement in the left ileum. During subsequent follow-up, the hypocalcemia improved. As of 03/09/2019 she was able to restart treatment with dose reductions in the Revlimid and dexamethasone. She had remained mildly anemic, but that appeared to be due to iron deficiency. As of her cycle 2 day 15 visit, she appeared to be doing well, and she continued to her treatment as scheduled. Subsequent to that visit, she developed severe diarrhea, and her treatment was put on hold. She continued with cycle 3 on 05/05/2019. She was given a further reduction in the Revlimid dosage to 10 mg daily on a day scheduled with the Velcade and dexamethasone dosed weekly. Her treatment was put on hold at day 8 due to worsening neuropathy. She subsequently was able to continue treatment with Revlimid/dexamethasone, but the Velcade remained on hold. She then continued with cycle 4 on 06/21/2019. As of her follow-up visit on 07/19/2019 her treatment was put on hold due to multiple complaints, the most significant being increased fatigue and excessive somnolence. A subsequent restaging PET/CT showed no active sites of involvement. She continued, though, to have severe fatigue/somnolence despite adjustments in her medication regimen. She also continued to have significant musculoskeletal pain, and she had a persistent open wound in the area of the vertex of her scalp. Her repeat head MRI on 08/10/2019 showed no evidence of recurrent or progressive disease. With those findings, her treatment was transitioned to maintenance Revlimid at 5 mg daily, which she started following her visit on 08/17/2019. As of her followup visit on 11/28/2019 she appeared to be tolerating the maintenance Revlimid with acceptable toxicity, and there had been no obvious progression of the myeloma. During that time she was found to have B12 deficiency, and she had been showing some improvement with B12 replacement. However, at that point she still had mild anemia, and her transferrin saturation and ferritin levels were consistent with iron deficiency despite the fact that she had been on oral iron supplementation. She was given parenteral iron replacement with 2 infusions of Injectafer. She also was given denosumab 120 mg by subcutaneous injection for the lytic bone involvement. On 12/06/2019 she was admitted to the hospital with symptomatic hypocalcemia. She also had hypokalemia and hyperphosphatemia. It was uncertain to what extent those abnormalities were due to the Injectafer, to the denosumab, or both. However, she continued to have persistent symptomatic hypocalcemia and hyperphosphatemia despite having both IV or oral replacement, and she required hospital admission again on 12/15/2019. During this time there was a significant in her performance status. She also developed shortness of breath and hypoxia. A specific cause for that was not determined. Following her hospitalization she is continued outpatient IV fluid and electrolyte replacement along with oral calcium, magnesium, and phosphorus supplements. She continues to have very limited activity and she continues to have shortness of breath. Her calcium level has come up some and her magnesium level is just slightly low. Her potassium is now back up to normal. She still has low phosphorous. Plan: 1. Proceed with IV calcium and potassium phosphate 3 days this week-Thu, Thu, Thursday. 2. Continue to hold Revlimid and Bactrim DS. 3. Last dose of denosumab was given on 11/28/2019. 4. Injectafer last given on 12/05/2019. 5. Plan for follow-up in 1 week with CBC, CMP, magnesium, and phosphorus. 6. Ms Clark was instructed to call us in the interim if questions or problems arise. 7. Her kappa free light chains from 01/02/2020 were reported as 40.3???they were 49.4 on 11/21/2019. The lambda free light chain was 183 on January 02, 2020. They were reported as 110.4 on November 21, 2019. Her albumin was 2.5. There was reported faint restriction band (M spike) migrating in the gamma region. Signed By: Sue Patel-, AOCNP Ruiz Rodriguez MD <<Signature on File>>
[2020-01-13] MEDS: lidocaine 1% INJ 20 mL 5 ML IV (09:44)
== END 2020-01-14 23:59 | disposition home or self-care (01) ==
LOC: ONCMED 05:40
PROVIDERS: Internal Medicine Medical Oncology; Family Provider Electrodiagnostic Medicine; PCP Electrodiagnostic Medicine; Visit Provider Nurse Practitioner
DX: E83.51 Hypocalcemia (principal); E83.39 Other disorders of phosphorus metabolism; R05 Cough; R06.02 Shortness of breath; C90.00 Multiple myeloma not having achieved remission; M19.90 Unspecified osteoarthritis, unspecified site; I10 Essential (primary) hypertension; F41.8 Other specified anxiety disorders; E53.8 Deficiency of other specified B group vitamins; Z79.899 Other long term (current) drug therapy; Z99.81 Dependence on supplemental oxygen; Z86.711 Personal history of pulmonary embolism; Z92.3 Personal history of irradiation
CPT/HCPCS: 11042; 36415; 71046; 80048; 80053; 81003; 82306; 82310; 83735; 83883; 83970; 84100; 84155; 84165; 85025; 85651; 96365; 96366; 96367; 99214; J0610; J2001; J7050

== ENCOUNTER 2020-01-18 20:00 | Outpatient (CLI) | payer MEDICARE, SELFPAY | END 2020-01-18 20:01 | disposition home or self-care (01) | LOC: SLEEP 01-19 09:28 | PROVIDERS: Family Provider Electrodiagnostic Medicine; PCP Electrodiagnostic Medicine; Visit Provider Electrodiagnostic Medicine | DX: G47.33 Obstructive sleep apnea (adult) (pediatric) (principal); T81.89XA Other complications of procedures, not elsewhere classified, initial encounter; Y84.2 Radiological procedure and radiotherapy as the cause of abnormal reaction of the patient, or of later complication, without mention of misadventure at the time of the procedure; L08.9 Local infection of the skin and subcutaneous tissue, unspecified; T20.35XA Burn of third degree of scalp [any part], initial encounter; W90.0XXA Exposure to radiofrequency, initial encounter | CPT/HCPCS: 11042; 95810; 95811 ==

== ENCOUNTER 2020-01-26 05:43 | Outpatient (RCR) | payer MEDICARE, SELFPAY ==
[2020-01-16 14:16] LABS: Erythrocyte Sedimentation Rate 51 mm/hr (0-15)
[2020-01-16 15:00] LABS: Alanine Aminotransferase 8 U/L (0-33); Albumin Level 3.4 g/dL (3.5-5.2); Alkaline Phosphatase 109 IU/L (35-105); Anion Gap 14.5 (5-19); Aspartate Amino Transferase 15 U/L (0-32); Blood Urea Nitrogen 4 mg/dL (8-23); Calcium 7.8 mg/dL (8.5-10.5); Carbon Dioxide 26 mmol/L (22-29); Chloride 101 mmol/L (98-107); Globulin 3.7 g/dL (1.3-4.6); Glomerular Filtration Rate 71.3 mL/min (90-130); Glucose 107 mg/dL (65-115); Lactate Dehydrogenase 80 U/L (135-214); NT Pro B Type Natriuretic Pept 1439 pg/mL (0-125); Potassium 3.5 mmol/L (3.5-5.1); Sodium 138 mmol/L (136-145); Total Bilirubin 0.2 mg/dL (0.15-1.2); Total Protein 7.1 g/dL (6.6-8.7); Vitamin B12 1566 pg/mL (232-1245)
[2020-01-16 15:21] LABS: Immunoglobulin IGA 224 mg/dL (70-400); Immunoglobulin IGG 974 mg/dL (700-1600); Immunoglobulin IGM 29 mg/dL (40-230)
[2020-01-16 15:38] LABS: Homocysteine 7.04
[2020-01-16 16:37] LABS: Magnesium 1.7 mg/dL (1.7-2.3); Phosphorus 1.1 mg/dL (2.5-4.5)
[2020-01-16 17:04] LABS: Basophils % 0.7 %; Eosinophils # 0.1 10^3/uL (0.0-0.8); Eosinophils % 1.5 %; Hematocrit 36.5 % (37.0-47.0); Hemoglobin 11.5 g/dL (11.5-15.3); Lymphocytes # 1.3 10^3/uL (0.8-4.8); Lymphocytes % 24.2 %; Mean Corpuscular HGB Conc 31.5 g/dL (30.0-36.0); Mean Corpuscular Hemoglobin 27.1 pg (28.0-34.0); Mean Corpuscular Volume 86.1 fL (81-99); Mean Platelet Volume 12.3 fL (7.4-10.4); Monocytes # 0.5 10^3/uL (0.2-0.9); Neutrophils # 3.4 10^3/uL (1.8-7.7); Neutrophils % 63.4 %; Nucleated Red Blood Cells % 0 %; Platelet Count 470 10^3/cmm (130-400); Red Blood Count 4.24 10^6/uL (4.1-5.3); Red Cell Distribution Width 18.4 % (12.1-15.1); White Blood Count 5.4 10^3/uL (4.0-10.0)
[2020-01-17 06:21] LABS: PROTEIN, TOTAL 6.3 g/dL (6.1-8.1)
[2020-01-17] MEDS: sodium chloride 0.9% 100 ML 500 ML (09:25)
[2020-01-17] MEDS: lidocaine 1% INJ 20 mL 5 ML IV (10:07)
[2020-01-17 14:55] LABS: ABNORMAL PROTEIN BAND 1 0.4 g/dL (NONE DETECTED); ALPHA 1 GLOBULIN 0.5 g/dL (0.2-0.3); ALPHA 2 GLOBULIN 1.1 g/dL (0.5-0.9); BETA 1 GLOBULIN 0.5 g/dL (0.4-0.6); BETA 2 GLOBULIN 0.3 g/dL (0.2-0.5); GAMMA GLOBULIN 0.9 g/dL (0.8-1.7); KAPPA LIGHT CHAIN, FREE, SERUM 40.4 mg/L (3.3-19.4); KAPPA/LAMBDA LIGHT CHAINS FREE 0.16 (0.26-1.65); LAMBDA LIGHT CHAIN, FREE, SERU 254.2 mg/L (5.7-26.3)
--- NOTE | 2020-01-18 09:24 | ONC FU_ITS ---
Dr. Rodriguez Patient Follow-Up Note Patient: Valentin Clark Unit #: [id number]: 1950 Dicatated By: Ruiz Rodriguez M.D.Date of Visit:Jan 16, 2020 Onc Med Follow-up/Prog Note Chief Complaint: Mulitple myeloma. 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 In March 2018 she had bumped her head at work and in the process of that she became aware of a small lump, though it was actually in a slightly different area. She then noticed that the lump was getting larger. Evaluation with head MRI on 06/07/2018 showed evidence of a right parietal occipital extra-axial neoplasm, felt to be most likely meningeal in origin. It was noted to exert mass effect on the right parietal and occipital lobes, but without associated midline shift or white matter parenchymal edema. The lesion was noted to invade through the calvarium and into the subcutaneous parietal occipital scalp soft tissues. The mass measured 5.7 x 3.5 x 6 cm. 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 The area of occlusion was noted to extend over approximately 4.3 cm. She was seen by Dr. Landry and subsequently referred for neurosurgery evaluation at [facility]. Initially they had considered possible surgical resection. Her further evaluation there apparently included laboratory findings which were suspicious for myeloma, and it was recommended that she have treatment with radiation. She was seen here for further management on 07/14/2018. She then returned to Dr. Landry, and on 07/20/2018 she underwent open biopsy/resection of the extracranial extent of the mass. 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 Her further evaluation included protein electrophoresis which showed an IgG lambda monoclonal protein in the serum quantitating at 0.48 g/dL. The serum free light chain assay showed elevated lambda light chain at 374.65 mg/L with decreased kappa/lambda ratio at 0.06. The 24-hour urine protein electrophoresis showed no monoclonal protein. There were no other areas of lytic bone involvement noted on her skeletal survey. Bone marrow aspiration/biopsy on 07/30/2018 showed a monotypic plasma cell population, but it comprised only 2% of the total cellularity. A FISH panel for myeloma was unrevealing, and the standard chromosome analysis was normal. She was referred to Dr. Kaur, and she began radiation to the lesion on 07/30/2018. She completed treatment on 09/02/2018 to a total dose of 5,000 cGy. She had evaluation with CT pulmonary angiogram on 09/14/2018. It showed moderate bilateral pulmonary embolic burden. She began on anticoagulation with apixaban. During her subsequent follow-up she continued to have an open wound at the site of the plasmacytoma in the parietal-occipital scalp region. As of her follow-up visit on 10/19/2018 her M protein was stable 0.37 g/dL. In the absence of any evidence of symptomatic myeloma, she had otherwise just continued on observation/expectant management. However, due to her persistent scalp wound she had a repeat brain MRI on 01/11/2019. It showed evidence of residual neoplastic process at the resection site. There was associated dural involvement but with improved signal characteristics and decreased enhancement compared to the study from September 2018. She was seen for a follow-up visit on 01/20/2019. In view of the MRI findings, she had further evaluation with PET/CT on 02/03/2019. It showed increase in size and expansile hypermetabolic lesion within the left ilium with extension of hypermetabolic tumor into the adjacent left iliac muscle. There was a new hypermetabolic lytic process within the right S1/S2 region. A large lytic mass within the posterior calvarium did not appear to have active hypermetabolism. Also noted, though, was a hypermetabolic lesion within the medullary canal of the distal left femoral diametaphysis and an additional hypermetabolic focus in the anterior cortex of the distal right femur concerning for additional areas of myeloma. In the setting of obvious progression of her myeloma, she was recommended to begin a trial of therapy with Velcade/Revlimid/dexamethasone. Her other medical illnesses include hypertension and degenerative arthritis/degenerative disease of the spine. She has associated cervical and lumbar spinal stenosis. She has a history of endometriosis, and she has anxiety/depression. She is a nonsmoker. INTERIM HISTORY: She began cycle 1 of VRd on 02/23/2019. At that time she also received an infusion of IV Zometa for the lytic bone involvement. At that time, there was a slight increase in her baseline creatinine level to 1.2 mg/dL, and did opt to reduce her Revlimid dosage because of that. She experienced significant toxicity following her day 1 treatment, mainly having become listless and out of it over the next 4-5 days. She also lost her appetite. Her follow-up lab studies showed a drop in her calcium from baseline 10.3 mg/dL to 6.5 mg/dL with albumin 3.5 g/dL. With that finding, I did opt to hold her further Velcade, but she continued Revlimid and dexamethasone. As of 03/09/2019 she restarted treatment with Velcade at 1.3 mg/m??? weekly with Revlimid reduced to 15 mg daily on a 21/28 day schedule and the dexamethasone dosage reduced to 20 mg weekly. As of her day 15 visit, she was tolerating the treatment well. At that time she received the full dosage of Velcade, and she continued Revlimid 15 mg daily for 7 more days. She had subsequently developed diarrhea, and at her followup visit on 04/07/2019 her treatment was put on hold. She eventually continued with cycle 3 on 05/05/2019 with the Revlimid dosage further reduced to 10 mg daily on a 21/28 day schedule and with the Velcade and dexamethasone dosed weekly. Her repeat SPEP at that time showed residual M protein quantitating at 0.3 g/dL. The free light chain assay showed kappa light chain 100 mg/L, lambda light chain 122 mg/L, and kappa/lambda ratio 0.82. Her treatment was put on hold again at day 8 due to worsening neuropathy. She subsequently was able to continue the Revlimid and dexamethasone, but the Velcade remained on hold. Her repeat protein electrophoresis on 06/09/2019 showed stable M protein at 0.3 g/dL. The serum free light chain assay showed normal kappa/lambda ratio at 0.84. She was seen for a follow-up visit on 06/21/2019. At that point she appeared stable clinically. Her blood counts were adequate, and she continued with her 4th cycle of treatment. Her repeat protein electrophoresis on 07/13/2019 showed residual M protein quantitating at 0.2 g/dL. The free light chain assay showed elevated kappa light chain at 31.0 mg/L and elevated lambda light chain at 33.0 mg/L with normal kappa/lambda ratio at 0.94. Her 24-hour urine protein electrophoresis showed no detectable monoclonal protein. She was seen for a follow-up visit on 07/19/2019. At that point she complained of increased fatigue and excessive somnolence, and I did opt to put her treatment on hold. A subsequent restaging PET/CT showed no FDG avid sites of involvement. Her repeat head MRI on 08/10/2019 showed no evidence of recurrent or progressive disease. With those findings, I opted to transition her treatment to maintenance Revlimid at 5 mg daily, which she started following her visit on 08/17/2019. Her further laboratory studies on 09/22/2019 also showed a low B12 level at 189 pg/mL, and she subsequently started B12 replacement therapy. A sleep study in October 2019 showed moderate obstructive sleep apnea. At her follow-up visit on 11/28/2019 she was still mildly anemic, and transferrin saturation was still low at 17% despite being on oral iron replacement. As such, she was then given parenteral iron replacement with infusions of Injectafer on 11/28/2019 and on 12/05/2019. With the 11/28 visit she also was given denosumab 120 mg by subcutaneous injection for the lytic bone involvement. On 12/06/2019 she was admitted to the hospital with symptomatic hypocalcemia, serum calcium 5.9 mg/dL with albumin 2.9 g/dL. Renal function was stable with creatinine 1.0 mg/dL, but her potassium also was low at 3.2 mmol/L. She was given IV calcium and potassium replacement. She then continued further IV replacement as an outpatient. Despite that she was readmitted to the hospital with hypocalcemia on 12/15/2019. She was discharged home on 12/23/2019. Her evaluation included CT pulmonary angiogram which showed no evidence of pulmonary embolism. There was evidence of cardiomegaly, a small pericardial effusion, and small bilateral pleural effusions. Echocardiogram showed small, hemodynamically insignificant pericardial effusion and normal left ventricular function. She then returned here on 12/27/2019 and she has since then continued IV fluid and electrolyte replacement, daily for the first week and then on Mondays, Wednesdays, and Fridays. Despite that, she continued to feel weak and shaky, and she had ongoing complaints of nausea and anorexia. She is seen for a followup visit. She has started feeling a little better, just over the last few days. She still has limited activity, but her energy has gotten a little better and she also has had some improvement in her appetite. She has no fever or night sweats. Her breathing is pretty good now, though she sometimes has shortness of breath and she still uses oxygen as needed. She periodically has cough. She still sometimes has heaviness in her upper chest. She says the nausea has finally left, but she continues to complain that she burps all the time. She also passes a lot of gas. Her stools are still loose, but they are slowing down now. Bladder function remains adequate, but she has noticed that she has less urine volume. She has a little bit of pain in her hands and toes, and she also has some back pain. She always has headache. She complains that she staggers a lot. She has no numbness/paresthesia or other focal neurologic symptoms. Medications: Acetaminophen 1 Tablet (of 650 mg) Oral PRN, Allergy Relief 1 Tablet (of 4 mg) Oral daily, Anti-Diarrheal 1 (2 mg) Tablet Oral daily PRN, Calcitriol 2 Capsule (of .25 mcg) Oral daily, Calcium Citrate + D 1 Capsule (of 600-800 mg - Units) Tablet Oral daily, Eliquis 1 Tablet (of 5 mg) Oral b.i.d., FLUoxetine HCl 1 Capsule (of 30 mg) Oral daily, Furosemide 1 Tablet (of 40 mg) Oral daily, GoodSense Stimulant Laxative 2 Tablet (of 8.6-50 mg) Oral t.i.d. PRN, LORazepam 1 Tablet (of 0.5 mg) Oral b.i.d., Magnesium 2 Tablet (of 400 mg) Oral b.i.d., Metoprolol Tartrate 0.5 Tablet (of 25 mg) Oral b.i.d., Pantoprazole Sodium 1 Tablet (of 40 mg) Tablet, enteric coated Oral b.i.d., Potassium Chloride ER 1 Tablet (of 20 meq) Tablet, controlled release Oral daily, Revlimid 1 Tablet (of 5 mg) Capsule Oral daily, Tums 1 Tablet (of 1000 mg) Tablet, chewable Oral daily, Ventolin HFA 1 (108 (90 base) mcg/act) Aerosol, solution Inhalation PRN, Vitamin D3 1 Capsule (of 2000 Units) Oral daily Allergies: BusPIRone HCl, Codeine and Related, Levaquin, and Morphine Derivatives. Review of Systems: Constitutional - She is feeling better, but she still has limited activity. Appetite is getting better, but she has lost weight. No fever or night sweats. ECOG score is 2, ENMT - She has sinus congestion/drainage. No mouth sores. No sore throat or difficulty swallowing, Hematologic/Lymphatic - She bruises easily, Respiratory - She has some shortness of breath at times. She wears oxygen as needed. She has a cough periodically. No pleuritic pain or hemoptysis, Cardiovascular - No angina pain. No palpitations, Gastrointestinal - No nausea or vomiting. She has a lot of gas and belching. No heartburn or acid reflux. She has loose stools, but they are slowing down now. No blood in the stool or black stools, Genitourinary (F) - No dysuria or hematuria. No urinary frequency. No urgency or incontinence, Musculoskeletal - She has pain in her hands and toes and she has pain in the middle of her back, Integumentary - No skin complications, Neurologic - She has headache. She has trouble with her balance. No numbness/paresthesias or other focal neurologic symptoms, Psychiatric - She has anxiety/depression. No insomnia. Vital Signs: Performed on Jan 16, 2020 13:36 Height - 63.50 in Weight - 199.6 lbs (LOW) BSA - 1.94 sq.m BMI - 34.80 (HIGH) Temperature - 97.2 F (LOW) Pulse - 90 /min Respiration - 17 /min BP - 119/74 mm(hg) O2 Sat - 96 % Pain - 0 Physical Examination: Constitutional - She looks a little better generally, Eyes - Sclerae nonicteric. Conjunctivae clear, ENMT - No lesions noted in the oral cavity, Hematologic/Lymphatic - No cervical, clavicular, or axillary adenopathy, Respiratory - Lungs sound clear, Cardiovascular - Heart rhythm is regular. There is a II/ systolic murmur. There is no gallop or rub noted, Abdomen - Soft. Liver and spleen are not enlarged. There is no abdominal mass or ascites noted and there is no inguinal adenopathy, Extremities - No edema, Neurologic - No focal neurologic deficits noted. Lab/Imaging: Test performed on Jan 16, 2020 14:00 NT proBNP 1439 pg/mL Homocysteine 7.04 umol/L LDH (Total) 80 U/L Sodium 138 mmol/L Vitamin B12 1566 pg/mL Potassium 3.5 mmol/L Chloride 101 mmol/L CO2 26 mmol/L Anion Gap 14.5 BUN 4 mg/dL Creatinine 0.8 mg/dL Cr Clearance (Est) 96.2000 mL/min eGFR 71.3 mL/min Glucose 107 mg/dL Calcium 7.8 mg/dL Protein, Total 7.1 g/dL Albumin 3.4 g/dL Globulin 3.7 g/dL Bilirubin, Total 0.2 mg/dL ALT (SGPT) 8 U/L AST (SGOT) 15 U/L Alkaline Phosphatase 109 IU/L IgG 974 mg/dL IgA 224 mg/dL IgM 29 mg/dL Test performed on Jan 16, 2020 12:50 WBC 5.4 10 3/uL RBC 4.24 10 6/uL HGB 11.5 g/dL HCT 36.5 % MCV 86.1 fL MCH 27.1 pg MCHC 31.5 g/dL RDW 18.4 % Platelet Count 470 10 3/cmm MPV 12.3 fL Neutrophils 3.4 10 3/uL Lymphocytes 1.3 10 3/uL Monocytes 0.5 10 3/uL Eosinophils 0.1 10 3/uL Basophils 0.0 10 3/uL Neutrophil % 63.4 % Lymphocyte % 24.2 % Monocyte % 10.0 % Eosinophil % 1.5 % Basophils % 0.7 % Impression: 1. 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 She underwent resection/open biopsy of the extracranial portion of the mass on 07/20/2018. 2. She then underwent radiation, completed on 09/02/2018 to a total dose of 5000 cGy. 3. She has persistent open wound at the biopsy site. 4. She had associated IgG lambda monoclonal protein in the serum and 2% monoclonal plasma cells in the bone marrow, consistent with underlying myeloma. Initially it appeared to otherwise not be symptomatic. 5. She was found to have pulmonary emboli by CT pulmonary angiogram on 09/14/2018. She began anticoagulation with apixaban. Her other medical illnesses include: 6. Degenerative arthritis and degenerative disease of the spine with associated cervical and lumbar spinal stenosis. 7. Hypertension. 8. Endometriosis. 9. Anxiety/depression. During subsequent followup she had increasing pain in the left hip/buttock area. Her repeat protein electrophoresis studies showed only a slight increase in her M protein, but her repeat PET/CT on 02/03/2019 showed significant progression of lytic bone involvement in the left ilium. There was also possible involvement in the distal right femur. The area of lytic involvement in the calvarium was not metabolically active. On 02/23/2019 she began cycle 1 of Velcade/Revlimid/dexamethasone. She also was given an infusion of Zometa for the lytic bone involvement. Her treatment was complicated by KITCHEN HAND toxicity and hypocalcemia. Her Velcade was put on hold. She stopped the Revlimid and dexamethasone as of 03/02/2019. At that point she was still having significant pain associated with the lytic bone involvement in the left ileum. During subsequent follow-up, the hypocalcemia improved. As of 03/09/2019 she was able to restart treatment with dose reductions in the Revlimid and dexamethasone. She had remained mildly anemic, but that appeared to be due to iron deficiency. As of her cycle 2 day 15 visit, she appeared to be doing well, and she continued to her treatment as scheduled. Subsequent to that visit, she developed severe diarrhea, and her treatment was put on hold. She continued with cycle 3 on 05/05/2019. She was given a further reduction in the Revlimid dosage to 10 mg daily on a day schedue with the Velcade and dexamethasone dosed weekly. Her treatment was put on hold at day 8 due to worsening neuropathy. She subsequently was able to continue treatment with Revlimid/dexamethasone, but the Velcade remained on hold. She then continued with cycle 4 on 06/21/2019. As of her follow-up visit on 07/19/2019 her treatment was put on hold due to multiple complaints, the most significant being increased fatigue and excessive somnolence. A subsequent restaging PET/CT showed no active sites of involvement. She continued, though, to have severe fatigue/somnolence despite adjustments in her medication regimen. She also continued to have significant musculoskeletal pain, and she had a persistent open wound in the area of the vertex of her scalp. Her repeat head MRI on 08/10/2019 showed no evidence of recurrent or progressive disease. With those findings, her treatment was transitioned to maintenance Revlimid at 5 mg daily, which she started following her visit on 08/17/2019. As of her followup visit on 11/28/2019 she appeared to be tolerating the maintenance Revlimid with acceptable toxicity, and there had been no obvious progression of the myeloma. During that time she was found to have B12 deficiency, and she had been showing some improvement with B12 replacement. However, at that point she still had mild anemia, and her transferrin saturation and ferritin levels were consistent with iron deficiency despite the fact that she had been on oral iron supplementation. She was given parenteral iron replacement with 2 infusions of Injectafer. She also was given denosumab 120 mg by ssubcutaneous injection for the lytic bone involvement. On 12/06/2019 she was admitted to the hospital with symptomatic hypocalcemia. She also had hypokalemia and hypophosphatemia. I was uncertain to what extent those abnormalities were due to the Injectafer, to the denosumab, or both. However, she continued to have persistent symptomatic hypocalemia and hypophosphatemia despite having both IV or oral replacement, and she required hospital admission again on 12/15/2019. During this time there was a significant in her performance status. She also developed shortness of breath and hypoxia. A specific cause for that was not determined. Following her hospitalization she continued outpatient IV fluid and electrolyte replacement along with oral calcium and vitamin D supplements. Within the past week she has shown improvement in the calcium level, which is now just slightly low, and the magnesium level is also just slightly low. She still has very low phosphorus level, though the clinical significance of that finding is uncertain. She had not been getting oral phosphorus supplementation due to her loose stools. She continues to have significant weakness/fatigue and anorexia, though her symptoms are finally showing some improvement. Plan: She will continue IV replacement with calcium gluconate and potassium phosphate, but with the frequency reduced to twice weekly. She will continue oral calcium and vitamin D supplements. Her labs will be monitored weekly. I will see her again in one month, or sooner as needed. Signed By: Ruiz Rodriguez M.D. <<Signature on File>>
[2020-01-18 13:57] LABS: PROTEIN, TOTAL, 24 HR UR 205 mg/24 h (<150); Protein/Creatinine Ratio 0.227 (< OR = 0.114); Protein/Creatinine Ratio 227 mg/g creat (< OR = 114)
[2020-01-19 02:36] LABS: Methylmalonic Acid 79 nmol/L (87-318)
[2020-01-19 09:23] LABS: ALPHA-1-GLOBULINS 0 %; ALPHA-2-GLOBULINS 0 %; BETA GLOBULINS 0 %; GAMMA GLOBULINS 0 %
[2020-01-20] MEDS: lidocaine 1% INJ 20 mL 5 ML IV (08:42)
[2020-01-23 10:19] LABS: Basophils # 0.1 10^3/uL (0.0-0.1); Basophils % 1.4 %; Eosinophils # 0.1 10^3/uL (0.0-0.8); Hematocrit 39.5 % (37.0-47.0); Hemoglobin 12.2 g/dL (11.5-15.3); Lymphocytes # 1.6 10^3/uL (0.8-4.8); Lymphocytes % 31.2 %; Mean Corpuscular HGB Conc 30.9 g/dL (30.0-36.0); Mean Corpuscular Volume 90.8 fL (81-99); Mean Platelet Volume 11.4 fL (7.4-10.4); Monocytes # 0.5 10^3/uL (0.2-0.9); Monocytes % 9.9 %; Neutrophils # 2.9 10^3/uL (1.8-7.7); Neutrophils % 56.3 %; Nucleated Red Blood Cells % 0 %; Platelet Count 444 10^3/cmm (130-400); Red Blood Count 4.35 10^6/uL (4.1-5.3); Red Cell Distribution Width 18.9 % (12.1-15.1); White Blood Count 5.2 10^3/uL (4.0-10.0)
[2020-01-23 10:29] LABS: Alanine Aminotransferase 11 U/L (0-33); Alkaline Phosphatase 122 IU/L (35-105); Anion Gap 13.7 (5-19); Aspartate Amino Transferase 23 U/L (0-32); Blood Urea Nitrogen 7 mg/dL (8-23); Calcium 8.2 mg/dL (8.5-10.5); Carbon Dioxide 24 mmol/L (22-29); Chloride 104 mmol/L (98-107); Globulin 3.3 g/dL (1.3-4.6); Glomerular Filtration Rate 62.3 mL/min (90-130); Glucose 99 mg/dL (65-115); Magnesium 1.9 mg/dL (1.7-2.3); Osmolality Calculated 282 mOsm/kg (285-295); Potassium 3.7 mmol/L (3.5-5.1); Sodium 138 mmol/L (136-145); Total Bilirubin 0.3 mg/dL (0.15-1.2); Total Protein 6.3 g/dL (6.6-8.7)
[2020-01-23 10:48] LABS: Phosphorus 0.9 mg/dL (2.5-4.5)
[2020-01-23] MEDS: lidocaine 1% INJ 20 mL 5 ML IV (11:16)
[2020-01-23] MEDS: sodium chloride 0.9% 100 ML 65 ML (11:16)
== END 2020-01-26 23:59 | disposition home or self-care (01) ==
LOC: ONCMED 05:43
PROVIDERS: Nurse Practitioner; Family Provider Electrodiagnostic Medicine; PCP Electrodiagnostic Medicine; Visit Provider Internal Medicine Medical Oncology
DX: C90.00 Multiple myeloma not having achieved remission (principal); E83.51 Hypocalcemia; E83.39 Other disorders of phosphorus metabolism; I10 Essential (primary) hypertension; M48.02 Spinal stenosis, cervical region; M48.061 Spinal stenosis, lumbar region without neurogenic claudication; G47.33 Obstructive sleep apnea (adult) (pediatric); F41.8 Other specified anxiety disorders; Z79.899 Other long term (current) drug therapy; Z92.3 Personal history of irradiation; Z86.711 Personal history of pulmonary embolism
CPT/HCPCS: 36415; 80053; 82040; 82607; 82784; 83090; 83615; 83735; 83880; 83883; 83921; 84100; 84155; 84165; 85025; 85651; 96365; 96366; 96367; 99214; J0610; J2001; J7050

== ENCOUNTER 2020-01-27 12:46 | Outpatient (CLI) | payer MEDICARE, SELFPAY ==
--- NOTE | 2020-01-27 | CT_ITS ---
WS: [id number] CT HEAD NONCONTRAST HISTORY: Osteomyelitis. Nonhealing wound. TECHNIQUE: Contiguous axial imaging performed through the brain in 2.5 mm imaging. Bone and soft tiss ue windows. All CT scans at [facility] use at least one of these dose optimization techniq ues: automated exposure control; mA and/or kV adjustment per patient size (includes targeted exams wh ere dose is matched to clinical indication); or iterative reconstruction. DLP: 1058.18 mGycm COMPARISON: 12/06/2019 No acute intracranial hemorrhage, midline shift or mass effect. Encephalomalacia and volume loss and decreased attenuation involving a large portion of the LEFT cere bellum is stable. Mild chronic microvascular ischemic disease. Ventricles: Normal size with no hydrocephalus. Paranasal sinuses: As visualized are clear. Mastoid air cells: Well pneumatized. Calvarium and scalp: Destructive permeative lesion involving the RIGHT posterior parietal bone is aga in identified with a maximum transverse diameter 5.5 cm. Overall no obvious progression of the destru ctive bone lesion. There is destruction of both the inner and outer tables of the skull with the soft tissue extension to the dura. CT/CT head wo con* 92019 IMPRESSION: 1. Permeative destructive lesion involving the inner and outer table of the po sterior RIGHT parietal bone is stable. No significant progression. 2. Remote LEFT cerebellar infarct.
== END 2020-01-27 12:47 | disposition home or self-care (01) ==
LOC: RADSHAW 12:51
PROVIDERS: Family Provider Electrodiagnostic Medicine; PCP Electrodiagnostic Medicine; Visit Provider Emergency Medicine
DX: C90.00 Multiple myeloma not having achieved remission (principal); G93.89 Other specified disorders of brain; I63.89 Other cerebral infarction
CPT/HCPCS: 70450

== ENCOUNTER 2020-01-30 06:11 | Outpatient (RCR) | payer MEDICARE, SELFPAY ==
[2020-01-30 10:28] LABS: Basophils # 0.1 10^3/uL (0.0-0.1); Basophils % 1.4 %; Eosinophils # 0.1 10^3/uL (0.0-0.8); Eosinophils % 0.9 %; Hemoglobin 12.6 g/dL (11.5-15.3); Lymphocytes # 1.5 10^3/uL (0.8-4.8); Lymphocytes % 25.9 %; Mean Corpuscular HGB Conc 30.7 g/dL (30.0-36.0); Mean Corpuscular Hemoglobin 28.3 pg (28.0-34.0); Mean Corpuscular Volume 91.9 fL (81-99); Monocytes # 0.5 10^3/uL (0.2-0.9); Monocytes % 8.9 %; Neutrophils # 3.6 10^3/uL (1.8-7.7); Neutrophils % 62.7 %; Nucleated Red Blood Cells % 0 %; Platelet Count 328 10^3/cmm (130-400); Red Blood Count 4.46 10^6/uL (4.1-5.3); White Blood Count 5.8 10^3/uL (4.0-10.0)
[2020-01-30 10:39] LABS: Alanine Aminotransferase 12 U/L (0-33); Albumin Level 3.4 g/dL (3.5-5.2); Alkaline Phosphatase 102 IU/L (35-105); Anion Gap 14.1 (5-19); Aspartate Amino Transferase 20 U/L (0-32); Blood Urea Nitrogen 8 mg/dL (8-23); Calcium 8.4 mg/dL (8.5-10.5); Carbon Dioxide 25 mmol/L (22-29); Chloride 103 mmol/L (98-107); Globulin 3.1 g/dL (1.3-4.6); Glucose 101 mg/dL (65-115); Magnesium 2.1 mg/dL (1.7-2.3); Osmolality Calculated 282 mOsm/kg (285-295); Phosphorus 1.8 mg/dL (2.5-4.5); Potassium 4.1 mmol/L (3.5-5.1); Sodium 138 mmol/L (136-145); Total Bilirubin 0.3 mg/dL (0.15-1.2); Total Protein 6.5 g/dL (6.6-8.7)
--- NOTE | 2020-01-30 16:00 | ONC FU_ITS ---
[facility] Patient Note Patient: Valentin Clark Unit #: [id number]: [id number] Dictated By: Sue PatelDate of Visit: Jan 30, 2020 Onc MED Follow-Up/Prog Note Chief Complaint: Multiple myeloma. 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 In March 2018 she had bumped her head at work and in the process of that she became aware of a small lump, though it was actually in a slightly different area. She then noticed that the lump was getting larger. Evaluation with head MRI on 06/07/2018 showed evidence of a right parietal occipital extra-axial neoplasm, felt to be most likely meningeal in origin. It was noted to exert mass effect on the right parietal and occipital lobes, but without associated midline shift or white matter parenchymal edema. The lesion was noted to invade through the calvarium and into the subcutaneous parietal occipital scalp soft tissues. The mass measured 5.7 x 3.5 x 6 cm. 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 The area of occlusion was noted to extend over approximately 4.3 cm. She was seen by Dr. Landry and subsequently referred for neurosurgery evaluation at [facility]. Initially they had considered possible surgical resection. Her further evaluation there apparently included laboratory findings which were suspicious for myeloma, and it was recommended that she have treatment with radiation. She was seen here for further management on 07/14/2018. She then returned to Dr. Landry, and on 07/20/2018 she underwent open biopsy/resection of the extracranial extent of the mass. 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 Her further evaluation included protein electrophoresis which showed an IgG lambda monoclonal protein in the serum quantitating at 0.48 g/dL. The serum free light chain assay showed elevated lambda light chain at 374.65 mg/L with decreased kappa/lambda ratio at 0.06. The 24-hour urine protein electrophoresis showed no monoclonal protein. There were no other areas of lytic bone involvement noted on her skeletal survey. Bone marrow aspiration/biopsy on 07/30/2018 showed a monotypic plasma cell population, but it comprised only 2% of the total cellularity. A FISH panel for myeloma was unrevealing, and the standard chromosome analysis was normal. She was referred to Dr. Kaur, and she began radiation to the lesion on 07/30/2018. She completed treatment on 09/02/2018 to a total dose of 5,000 cGy. She had evaluation with CT pulmonary angiogram on 09/14/2018. It showed moderate bilateral pulmonary embolic burden. She began on anticoagulation with apixaban. During her subsequent follow-up she continued to have an open wound at the site of the plasmacytoma in the parietal-occipital scalp region. As of her follow-up visit on 10/19/2018 her M protein was stable 0.37 g/dL. In the absence of any evidence of symptomatic myeloma, she had otherwise just continued on observation/expectant management. However, due to her persistent scalp wound she had a repeat brain MRI on 01/11/2019. It showed evidence of residual neoplastic process at the resection site. There was associated dural involvement but with improved signal characteristics and decreased enhancement compared to the study from September 2018. She was seen for a follow-up visit on 01/20/2019. In view of the MRI findings, she had further evaluation with PET/CT on 02/03/2019. It showed increase in size and expansile hypermetabolic lesion within the left ilium with extension of hypermetabolic tumor into the adjacent left iliac muscle. There was a new hypermetabolic lytic process within the right S1/S2 region. A large lytic mass within the posterior calvarium did not appear to have active hypermetabolism. Also noted, though, was a hypermetabolic lesion within the medullary canal of the distal left femoral diametaphysis and an additional hypermetabolic focus in the anterior cortex of the distal right femur concerning for additional areas of myeloma. In the setting of obvious progression of her myeloma, she was recommended to begin a trial of therapy with Velcade/Revlimid/dexamethasone. Her other medical illnesses include hypertension and degenerative arthritis/degenerative disease of the spine. She has associated cervical and lumbar spinal stenosis. She has a history of endometriosis, and she has anxiety/depression. She is a nonsmoker. INTERIM HISTORY: She began cycle 1 of VRd on 02/23/2019. At that time she also received an infusion of IV Zometa for the lytic bone involvement. At that time, there was a slight increase in her baseline creatinine level to 1.2 mg/dL, and did opt to reduce her Revlimid dosage because of that. She experienced significant toxicity following her day 1 treatment, mainly having become listless and out of it over the next 4-5 days. She also lost her appetite. Her follow-up lab studies showed a drop in her calcium from baseline 10.3 mg/dL to 6.5 mg/dL with albumin 3.5 g/dL. With that finding, Dr Rodriguez did opt to hold her further Velcade, but she continued Revlimid and dexamethasone. As of 03/09/2019 she restarted treatment with Velcade at 1.3 mg/m??? weekly with Revlimid reduced to 15 mg daily on a 21/28 day schedule and the dexamethasone dosage reduced to 20 mg weekly. As of her day 15 visit, she was tolerating the treatment well. At that time she received the full dosage of Velcade, and she continued Revlimid 15 mg daily for 7 more days. She had subsequently developed diarrhea, and at her followup visit on 04/07/2019 her treatment was put on hold. She eventually continued with cycle 3 on 05/05/2019 with the Revlimid dosage further reduced to 10 mg daily on a 21/28 day schedule and with the Velcade and dexamethasone dosed weekly. Her repeat SPEP at that time showed residual M protein quantitating at 0.3 g/dL. The free light chain assay showed kappa light chain 100 mg/L, lambda light chain 122 mg/L, and kappa/lambda ratio 0.82. Her treatment was put on hold again at day 8 due to worsening neuropathy. She subsequently was able to continue the Revlimid and dexamethasone, but the Velcade remained on hold. Her repeat protein electrophoresis on 06/09/2019 showed stable M protein at 0.3 g/dL. The serum free light chain assay showed normal kappa/lambda ratio at 0.84. She was seen for a follow-up visit on 06/21/2019. At that point she appeared stable clinically. Her blood counts were adequate, and she continued with her 4th cycle of treatment. Her repeat protein electrophoresis on 07/13/2019 showed residual M protein quantitating at 0.2 g/dL. The free light chain assay showed elevated kappa light chain at 31.0 mg/L and elevated lambda light chain at 33.0 mg/L with normal kappa/lambda ratio at 0.94. Her 24-hour urine protein electrophoresis showed no detectable monoclonal protein. She was seen for a follow-up visit on 07/19/2019. At that point she complained of increased fatigue and excessive somnolence, and it was opted to put her treatment on hold. A subsequent restaging PET/CT showed no FDG avid sites of involvement. Her repeat head MRI on 08/10/2019 showed no evidence of recurrent or progressive disease. With those findings, Dr Rodriguez opted to transition her treatment to maintenance Revlimid at 5 mg daily, which she started following her visit on 08/17/2019. Her further laboratory studies on 09/22/2019 also showed a low B12 level at 189 pg/mL, and she subsequently started B12 replacement therapy. A sleep study in October 2019 showed moderate obstructive sleep apnea. At her follow-up visit on 11/28/2019 she was still mildly anemic, and transferrin saturation was still low at 17% despite being on oral iron replacement. As such, she was then given parenteral iron replacement with infusions of Injectafer on 11/28/2019 and on 12/05/2019. With the 11/28 visit she also was given denosumab 120 mg by subcutaneous injection for the lytic bone involvement. On 12/06/2019 she was admitted to the hospital with symptomatic hypocalcemia, serum calcium 5.9 mg/dL with albumin 2.9 g/dL. Renal function was stable with creatinine 1.0 mg/dL, but her potassium also was low at 3.2 mmol/L. She was given IV calcium and potassium replacement. She then continued further IV replacement as an outpatient. Despite that she was readmitted to the hospital with hypocalcemia on 12/15/2019. She was discharged home on 12/23/2019. Her evaluation included CT pulmonary angiogram which showed no evidence of pulmonary embolism. There was evidence of cardiomegaly, a small pericardial effusion, and small bilateral pleural effusions. Echocardiogram showed small, hemodynamically insignificant pericardial effusion and normal left ventricular function. She then returned here on 12/27/2019 and she has since then continued IV fluid and electrolyte replacement, daily for the first week and then on Mondays, Wednesdays, and Fridays. Despite that, she continued to feel weak and shaky, and she had ongoing complaints of nausea and anorexia. Ms. Clark has received multiple doses of calcium gluconate and potassium phosphate for IV supplementation. She is tolerated these well. Her last calcium infusion was on January 20, 2020 and her last potassium infusion was on January 26, 2020. Overall she states she is feeling some stronger. She is getting around the house more. Her appetite is fair. She denies any fever or chills. She denies any cough, shortness of breath or orthopnea. She denies any nausea or vomiting. She states she has had no diarrhea. She denies any bladder complaints. She denies any new pain with the exception of right upper chest wall/rib pain. She states it will wake her up or bothers her at rest. She states the pain like stabbing shooting pains that will happen 6-8 times and then quit and do not recur for some time. She states she may only have this once or twice a day but feels it is getting the words lasting a little longer each time. This does not interfere with her breathing nor does she have any diaphoresis associated with this. She denies any palpitations. She has had no lower extremity edema. Her ECOG is 2. Past Medical History: Anxiety/depression Cervical stenosis Degenerative arthritis Degenerative disease of the spine Depression Endometriosis Hypertension Lumbar stenosis Past Surgical History: Bilateral cataract excisions Cholecystectomy/gastric stapling Removal of ovarian cyst x 2 Tonsillectomy Allergies: BusPIRone HCl, Codeine and Related, Levaquin, and Morphine Derivatives. Medications: Acetaminophen 1 Tablet (of 650 mg) Oral PRN Allergy Relief 1 Tablet (of 4 mg) Oral daily Anti-Diarrheal 1 (2 mg) Tablet Oral daily PRN Calcitriol 2 Capsule (of .25 mcg) Oral daily Calcium Citrate + D 1 Capsule (of 600-800 mg - Units) Tablet Oral daily calicum 10,000 Units Tablet Sublingual daily Eliquis 1 Tablet (of 5 mg) Oral b.i.d. FLUoxetine HCl 1 Capsule (of 30 mg) Oral daily Furosemide 1 Tablet (of 40 mg) Oral daily GoodSense Stimulant Laxative 2 Tablet (of 8.6-50 mg) Oral t.i.d. PRN LORazepam 1 Tablet (of 0.5 mg) Oral b.i.d. Magnesium 2 Tablet (of 400 mg) Oral b.i.d. Metoprolol Tartrate 0.5 Tablet (of 25 mg) Oral b.i.d. Pantoprazole Sodium 1 Tablet (of 40 mg) Tablet, enteric coated Oral b.i.d. Potassium Chloride ER 1 Tablet (of 20 meq) Tablet, controlled release Oral daily Revlimid 1 Tablet (of 5 mg) Capsule Oral daily Tums 1 Tablet (of 1000 mg) Tablet, chewable Oral daily Ventolin HFA 1 (108 (90 base) mcg/act) Aerosol, solution Inhalation PRN Vitamin D3 1 Capsule (of 2000 Units) Oral daily Family History: Ms. Clark's mother at age 84: emphysema, and congestive heart failure. Ms. Clark's father at age 53: heart disease, and myocardial infarction. Ms. Clark has 2 brothers: 1 alive, 1 . Ms. Clark's first brother's colon cancer, and type ii diabetes. Another brother's colon cancer. She has 2 sisters: 2 alive. Ms. Clark's first sister's herat disease, and type ii diabetes. Father of heart attack age 51. Mother with emphysema at age 78. She also had heart disease and diabetes. A sister has diabetes and heart disease. A brother has diabetes and he has been treated for colon cancer. A maternal uncle also had colon cancer, and a maternal aunt had breast cancer. 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 Ms. Clark has never smoked. She drinks occasionally. She is a nonsmoker. She has had just rare alcohol use. Review Of Symptoms: Constitutional Denies fevers, chills, night sweats, excessive-fatigue but gradually improving. Allergic/Immunologic No reactions. Eyes Denies significant visual changes. No diplopia. No amaurosis. ENMT Denies changes in hearing, sore throat, mouth sores, difficulty or changes in swallowing ability, and/or sinus drainage. Endocrine No diabetes, thyroid disease or hormone replacement. Denies hot flashes or night sweats. Hematologic/Lymphatic Denies easy bruising or bleeding. The patient denies any tender or palpable lymph nodes. Respiratory Denies dyspnea on exertion, chest pain, cough or hemoptysis. Denies orthopnea. Cardiovascular Denies anginal chest pain, palpitations or orthopnea. Gastrointestinal Denies nausea, vomiting, GI bleeding, or constipation. Denies change in bowel habits and/or stool color, no heartburn. Genitourinary (F) No hematuria, hesitancy, incontinence, discharge or other problems with urination. Musculoskeletal Denies joint pain, swelling or redness. No decreased range of motion. Integumentary Denies chronic rashes, inflammation, ulcerations or skin changes. Neurologic Denies headache, blurred vision, and no areas of focal weakness or numbness. Normal gait. No sensory problems. Psychiatric Denies insomnia, depression, olivia or mood swings. Vital Signs: Performed on Jan 30, 2020 10:04 Height - 63.50 in Weight - 200.4 lbs (HIGH) BSA - 1.95 sq.m BMI - 34.94 (HIGH) Temperature - 97.8 F (LOW) Pulse - 55 /min (LOW) Respiration - 18 /min BP - 100/60 mm(hg) O2 Sat - 95 % (LOW) Pain - 5 Fatigue - 8,2 - Ambulatory/capable of all self-care, unable to perform any work activities. Up and about more than 50% of waking hours. (ECOG) Physical Examination: Constitutional Alert, oriented, no acute distress. Skin pink, warm and dry. Head Normocephalic; atraumatic. Eyes Conjunctivae and sclerae are clear and without icterus. Pupils are reactive and equal. Neck Supple without masses or thyromegaly. No jugular venous distension. Hematologic/Lymphatic No petechiae or purpura. No tender or palpable lymph nodes in the cervical or supraclavicular areas. Respiratory Lungs are clear to auscultation without rhonchi or wheezing. Cardiovascular Regular rate and rhythm of heart without murmurs,clicks, gallops or rubs. Abdomen Non-tender, non-distended, no masses, ascites. .Good bowel sounds noted in all quads. No guarding or rebound tenderness. No pulsatile masses. Back/Spine Non-tender to palpation. Extremities No visible deformities, no cyanosis, clubbing or edema. Musculoskeletal No tenderness or swelling. Integumentary No rashes or lesions. Psychiatric Alert and oriented times three. Coherent speech. Verbalizes understanding of our discussions today. Laboratory:Test performed on Jan 30, 2020 09:58 Magnesium 2.1 mg/dL Phosphorus 1.8 mg/dL Sodium 138 mmol/L Potassium 4.1 mmol/L Chloride 103 mmol/L CO2 25 mmol/L Anion Gap 14.1 BUN 8 mg/dL Creatinine 0.7 mg/dL Cr Clearance (Est) 108.8500 mL/min eGFR 83.0 mL/min Glucose 101 mg/dL Calcium 8.4 mg/dL Protein, Total 6.5 g/dL Albumin 3.4 g/dL Globulin 3.1 g/dL Bilirubin, Total 0.3 mg/dL ALT (SGPT) 12 U/L AST (SGOT) 20 U/L Alkaline Phosphatase 102 IU/L WBC 5.8 10 3/uL RBC 4.46 10 6/uL HGB 12.6 g/dL HCT 41.0 % MCV 91.9 fL MCH 28.3 pg MCHC 30.7 g/dL RDW 19.0 % Platelet Count 328 10 3/cmm MPV 12.0 fL Neutrophils 3.6 10 3/uL Lymphocytes 1.5 10 3/uL Monocytes 0.5 10 3/uL Eosinophils 0.1 10 3/uL Basophils 0.1 10 3/uL Neutrophil % 62.7 % Lymphocyte % 25.9 % Monocyte % 8.9 % Eosinophil % 0.9 % Basophils % 1.4 % T Impression: 1. 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 She underwent resection/open biopsy of the extracranial portion of the mass on 07/20/2018. 2. She then underwent radiation, completed on 09/02/2018 to a total dose of 5000 cGy. 3. She has persistent open wound at the biopsy site. 4. She had associated IgG lambda monoclonal protein in the serum and 2% monoclonal plasma cells in the bone marrow, consistent with underlying myeloma. Initially it appeared to otherwise not be symptomatic. 5. She was found to have pulmonary emboli by CT pulmonary angiogram on 09/14/2018. She began anticoagulation with apixaban. Her other medical illnesses include: 6. Degenerative arthritis and degenerative disease of the spine with associated cervical and lumbar spinal stenosis. 7. Hypertension. 8. Endometriosis. 9. Anxiety/depression. During subsequent followup she had increasing pain in the left hip/buttock area. Her repeat protein electrophoresis studies showed only a slight increase in her M protein, but her repeat PET/CT on 02/03/2019 showed significant progression of lytic bone involvement in the left ilium. There was also possible involvement in the distal right femur. The area of lytic involvement in the calvarium was not metabolically active. On 02/23/2019 she began cycle 1 of Velcade/Revlimid/dexamethasone. She also was given an infusion of Zometa for the lytic bone involvement. Her treatment was complicated by BRICK STACKER toxicity and hypocalcemia. Her Velcade was put on hold. She stopped the Revlimid and dexamethasone as of 03/02/2019. At that point she was still having significant pain associated with the lytic bone involvement in the left ileum. During subsequent follow-up, the hypocalcemia improved. As of 03/09/2019 she was able to restart treatment with dose reductions in the Revlimid and dexamethasone. She had remained mildly anemic, but that appeared to be due to iron deficiency. As of her cycle 2 day 15 visit, she appeared to be doing well, and she continued to her treatment as scheduled. Subsequent to that visit, she developed severe diarrhea, and her treatment was put on hold. She continued with cycle 3 on 05/05/2019. She was given a further reduction in the Revlimid dosage to 10 mg daily on a 21/ day schedule with the Velcade and dexamethasone dosed weekly. Her treatment was put on hold at day 8 due to worsening neuropathy. She subsequently was able to continue treatment with Revlimid/dexamethasone, but the Velcade remained on hold. She then continued with cycle 4 on 06/21/2019. As of her follow-up visit on 07/19/2019 her treatment was put on hold due to multiple complaints, the most significant being increased fatigue and excessive somnolence. A subsequent restaging PET/CT showed no active sites of involvement. She continued, though, to have severe fatigue/somnolence despite adjustments in her medication regimen. She also continued to have significant musculoskeletal pain, and she had a persistent open wound in the area of the vertex of her scalp. Her repeat head MRI on 08/10/2019 showed no evidence of recurrent or progressive disease. With those findings, her treatment was transitioned to maintenance Revlimid at 5 mg daily, which she started following her visit on 08/17/2019. As of her followup visit on 11/28/2019 she appeared to be tolerating the maintenance Revlimid with acceptable toxicity, and there had been no obvious progression of the myeloma. During that time she was found to have B12 deficiency, and she had been showing some improvement with B12 replacement. However, at that point she still had mild anemia, and her transferrin saturation and ferritin levels were consistent with iron deficiency despite the fact that she had been on oral iron supplementation. She was given parenteral iron replacement with 2 infusions of Injectafer. She also was given denosumab 120 mg by subcutaneous injection for the lytic bone involvement. On 12/06/2019 she was admitted to the hospital with symptomatic hypocalcemia. She also had hypokalemia and hyperphosphatemia. It was uncertain to what extent those abnormalities were due to the Injectafer, to the denosumab, or both. However, she continued to have persistent symptomatic hypocalcemia and hyperphosphatemia despite having both IV or oral replacement, and she required hospital admission again on 12/15/2019. During this time there was a significant in her performance status. She also developed shortness of breath and hypoxia. A specific cause for that was not determined. Following her hospitalization she continued outpatient IV fluid and electrolyte replacement along with oral calcium and vitamin D supplements. Within the past month, she has shown improvement in the calcium level, which is now just slightly low, and the magnesium level is also just slightly low. She still has very low phosphorus level, though the clinical significance of that finding is uncertain. She had not been getting oral phosphorus supplementation due to her loose stools. She continues to have mild weakness/fatigue, though her symptoms are finally showing some improvement. Plan: 1. labs from today were reviewed in detail and discussed with Ms Clark and a copy was given to her. WBC 5.8, Hgb 12.6, platelets 328,000, ANC 3600, creatinine 0.7, LFts normal. Calcium is 8.4, phosphorous 1.9 (up from 0.9 on 01/23/2020) and potassium is normal at 4.1. 2. She has been delayed from treatment during all this time with the electrolyte problem July 05, 2019 which time she received single agent Velcade. On 01/16/2020 her IgG was 974 IgA was 224 and IgM was 29. Her kappa free light chains measured at 40.4 free lambda light chains 254.2. Her kappa free free light chains in December were 40.3 free lambda light chain was 183. Results prior to that were from 01/02/2022 her free kappa light chains 40.3; free lambda light chain 183.0. 3. Her last pet imaging was July 2019. She is due for 6-month follow- up. I have requested a restaging PET/CT to be done before her next followup. She is having new onset right sided chest wall/rib pain. 4. I offered to do her chemisty labs next week to make sure all is still normal. She requested to wait untill her followup appointment before more labs are drawn unless she develops symptoms. 5. We will set up the followup appointment once we know the PET/CT schedule. 6. Ms Clark was instructed to call us in the interim if questions or problems arise or if her riht sided chest wall/rib pain worsens. Signed By: Seu Patel-, AOCNP Ruiz Rodriguez MD <<Signature on File>>
== END 2020-01-30 23:59 | disposition home or self-care (01) ==
LOC: ONCMED 06:11
PROVIDERS: Family Provider Electrodiagnostic Medicine; PCP Electrodiagnostic Medicine; Visit Provider Nurse Practitioner
DX: C90.00 Multiple myeloma not having achieved remission (principal); E83.51 Hypocalcemia; D50.9 Iron deficiency anemia, unspecified; E53.8 Deficiency of other specified B group vitamins; I10 Essential (primary) hypertension; M48.02 Spinal stenosis, cervical region; M48.061 Spinal stenosis, lumbar region without neurogenic claudication; F41.8 Other specified anxiety disorders; G47.33 Obstructive sleep apnea (adult) (pediatric); Z79.899 Other long term (current) drug therapy; Z79.01 Long term (current) use of anticoagulants; Z86.711 Personal history of pulmonary embolism; Z92.3 Personal history of irradiation
CPT/HCPCS: 11044; 36415; 80053; 83735; 84100; 85025; 99214

== ENCOUNTER 2020-02-01 13:22 | Outpatient (CLI) | payer MEDICARE, SELFPAY ==
--- NOTE | 2020-02-01 13:24 | MR_ITS ---
WS: [id number] MRI HEAD WITH CONTRAST TECHNIQUE: Sagittal T1, T2 axial, T2 axial FLAIR, axial susceptibility weighted imaging, axial diffus ion weighted images, and coronal T2 images were obtained. Pre and post-T1 axial and post T1 coronal i mages. ADC and FSPGR images. CLINICAL INFORMATION: MULTIPLE MYELOMA COMPARISON: MRI August 10, [address] December 06, 2019. CT January 27, 2020 FINDINGS: Prior postoperative changes partial resection of the large right parietal occipital calvarial lesion with soft tissue defect and partial craniectomy. Normal brain parenchyma in the underlying right lilly etal and occipital lobes is unchanged. Stable postoperative and posttherapeutic enhancement involving the resection cavity and surrounding calvarium. No definite evidence of disease progression the lilly etal cavity. No abnormal intracranial parenchymal enhancement. New enhancing T2 hyperintense lesion involving the right parietal calvarium just anterior superior to the resection cavity. Lytic lesion measures 9 mm and demonstrates increased signal on diffusion. Fin dings are suspicious for new myeloma lesion. Normal optic chiasm and pituitary infundibulum. No evidence of restricted diffusion to suggest acute ischemia. No hemosiderin on the susceptibility weighted images. Moderate small vessel changes with mo derate parenchymal volume loss. Chronic left cerebellar infarct with encephalomalacia. Partial opacif ication the mastoid air cells bilaterally. Normal vascular flow voids at the skull base. Paranasal si nuses are well aerated. MR/MR head wo/w con [id number] IMPRESSION: 1. Stable appearing large right parieto-occipital calvarial soft tissue defect with craniectomy. 2. No evidence of progressive disease at the craniectomy site. Stable postoper ative enhancement about the resection cavity. 3. New adjacent T2 hyperintense enhancing right parietal lesion just anterior and cranial to the parietal defect. This demonstrates increased signal on diffu yon and is suspicious for new myelomatous lesion. 4. Moderate small vessel changes with moderate parenchymal volume loss. 5. Small vessel changes in the ritu. 6. Chronic infarct left cerebellum with encephalomalacia. 7. No abnormal intracranial parenchymal enhancement.
== END 2020-02-01 13:23 | disposition home or self-care (01) ==
LOC: RADSHAW 13:23
PROVIDERS: Family Provider Electrodiagnostic Medicine; PCP Electrodiagnostic Medicine; Visit Provider Specialist
DX: C90.00 Multiple myeloma not having achieved remission (principal); G93.89 Other specified disorders of brain; I63.9 Cerebral infarction, unspecified
CPT/HCPCS: 70553; A9579

== ENCOUNTER 2020-02-03 08:20 | Outpatient (RCR) | payer MEDICARE, SELFPAY ==
[2020-02-03] MEDS: sodium chloride 0.9% 1,000 ML 999 ML IV (08:58)
== END 2020-02-14 23:59 | disposition home or self-care (01) ==
LOC: ONCMED 08:20
PROVIDERS: Family Provider Electrodiagnostic Medicine; PCP Electrodiagnostic Medicine; Visit Provider Internal Medicine Medical Oncology
DX: E83.51 Hypocalcemia (principal); C79.51 Secondary malignant neoplasm of bone; C90.00 Multiple myeloma not having achieved remission; D50.8 Other iron deficiency anemias; D47.2 Monoclonal gammopathy
CPT/HCPCS: 96360; G0463; J7030

== ENCOUNTER 2020-02-08 10:56 | Outpatient (RCR) | payer MEDICARE, SELFPAY | END 2020-02-14 23:59 | disposition home or self-care (01) | LOC: WOUND 10:56 | PROVIDERS: Family Provider Electrodiagnostic Medicine; PCP Electrodiagnostic Medicine; Visit Provider Nurse Practitioner Family | DX: L59.8 Other specified disorders of the skin and subcutaneous tissue related to radiation (principal); Y84.2 Radiological procedure and radiotherapy as the cause of abnormal reaction of the patient, or of later complication, without mention of misadventure at the time of the procedure; Y78.1 Therapeutic (nonsurgical) and rehabilitative radiological devices associated with adverse incidents | CPT/HCPCS: 11042; 11044; 87070; 87077; 87176; 87186; 87205; G0463 ==

== ENCOUNTER 2020-02-20 08:09 | Outpatient (RCR) | payer MEDICARE, SELFPAY ==
[2020-02-20 09:38] LABS: Basophils # 0.1 10^3/uL (0.0-0.1); Basophils % 1.6 %; Eosinophils # 0.1 10^3/uL (0.0-0.8); Eosinophils % 1.6 %; Hematocrit 38.8 % (37.0-47.0); Hemoglobin 12.2 g/dL (11.5-15.3); Lymphocytes # 1.4 10^3/uL (0.8-4.8); Lymphocytes % 28.4 %; Mean Corpuscular HGB Conc 31.4 g/dL (30.0-36.0); Mean Corpuscular Hemoglobin 28.3 pg (28.0-34.0); Mean Platelet Volume 11.4 fL (7.4-10.4); Monocytes # 0.5 10^3/uL (0.2-0.9); Monocytes % 10.5 %; Neutrophils # 2.9 10^3/uL (1.8-7.7); Neutrophils % 57.7 %; Nucleated Red Blood Cells % 0 %; Platelet Count 313 10^3/cmm (130-400); Red Blood Count 4.31 10^6/uL (4.1-5.3); Red Cell Distribution Width 18.2 % (12.1-15.1)
[2020-02-20 09:52] LABS: Alanine Aminotransferase 20 U/L (0-33); Albumin Level 3.6 g/dL (3.5-5.2); Alkaline Phosphatase 92 IU/L (35-105); Anion Gap 14.3 (5-19); Aspartate Amino Transferase 25 U/L (0-32); Blood Urea Nitrogen 14 mg/dL (8-23); Calcium 9.5 mg/dL (8.5-10.5); Carbon Dioxide 27 mmol/L (22-29); Chloride 105 mmol/L (98-107); Glomerular Filtration Rate 49.2 mL/min (90-130); Glucose 110 mg/dL (65-115); Magnesium 1.9 mg/dL (1.7-2.3); Osmolality Calculated 291 mOsm/kg (285-295); Phosphorus 2.3 mg/dL (2.5-4.5); Potassium 4.3 mmol/L (3.5-5.1); Sodium 142 mmol/L (136-145); Total Bilirubin 0.3 mg/dL (0.15-1.2); Total Protein 6.6 g/dL (6.6-8.7)
== END 2020-02-20 23:59 | disposition home or self-care (01) ==
LOC: ONCMED 08:09
PROVIDERS: Family Provider Electrodiagnostic Medicine; PCP Electrodiagnostic Medicine; Visit Provider Internal Medicine Medical Oncology
DX: E83.42 Hypomagnesemia (principal); E83.51 Hypocalcemia; C90.00 Multiple myeloma not having achieved remission
CPT/HCPCS: 36415; 80053; 83735; 84100; 85025

== ENCOUNTER 2020-02-29 09:02 | Outpatient (CLI) | payer MEDICARE, SELFPAY ==
--- NOTE | 2020-02-29 | XR_ITS ---
WS: [id number] THORACIC SPINE TECHNIQUE: 3 views of the thoracic spine CLINICAL INFORMATION: RIB PAIN COMPARISON: None. FINDINGS: Mild thoracic curve. Moderate thoracic kyphosis. Hypertrophic changes thoracic spine. Chronic appeari ng anterior wedging in the mid thoracic spine. Surgical clips at the GE junction. Cholecystectomy cli ps. Hypertrophic changes cervical spine. XR/XR thoracic spine 3V* [id number] IMPRESSION: 1. Mild thoracic curve with moderate thoracic kyphosis. 2. Hypertrophic changes thoracic spine. 3. Mild chronic anterior wedging in the mid thoracic spine.
--- NOTE | 2020-02-29 | XR_ITS ---
WS: [id number] RIBS BILATERAL TECHNIQUE: 4 views bilateral ribs CLINICAL INFORMATION: RIB PAIN COMPARISON: December 30, 2019 FINDINGS: Cardiomegaly. Surgical clips in the upper abdomen at the GE junction. Cholecystectomy clips. Tortuous thoracic aorta. Moderate chronic emphysematous changes. No acute pulmonary infiltrates. No focal pne umonia. Osteopenia. No visualized acute rib fractures. XR/XR ribs BI 3V* [id number] IMPRESSION: No visualized acute rib fractures
== END 2020-02-29 09:03 | disposition home or self-care (01) ==
LOC: RADWPI 09:05
PROVIDERS: Family Provider Electrodiagnostic Medicine; PCP Electrodiagnostic Medicine; Visit Provider Electrodiagnostic Medicine
DX: R07.81 Pleurodynia (principal); M54.89 Other dorsalgia
CPT/HCPCS: 71110; 72072

== ENCOUNTER 2020-03-12 10:12 | Outpatient (RCR) | payer MEDICARE, SELFPAY | END 2020-03-15 23:59 | disposition home or self-care (01) | LOC: WOUND 10:12 | PROVIDERS: Family Provider Electrodiagnostic Medicine; PCP Electrodiagnostic Medicine; Visit Provider Emergency Medicine | DX: L59.8 Other specified disorders of the skin and subcutaneous tissue related to radiation (principal); Y84.2 Radiological procedure and radiotherapy as the cause of abnormal reaction of the patient, or of later complication, without mention of misadventure at the time of the procedure; Y78.1 Therapeutic (nonsurgical) and rehabilitative radiological devices associated with adverse incidents; I96 Gangrene, not elsewhere classified | CPT/HCPCS: 11042 ==

== ENCOUNTER 2020-03-14 06:42 | Outpatient (RCR) | payer MEDICARE, SELFPAY ==
[2020-03-13 08:26] LABS: Basophils # 0.1 10^3/uL (0.0-0.1); Eosinophils # 0.1 10^3/uL (0.0-0.8); Eosinophils % 1.5 %; Hematocrit 36.6 % (37.0-47.0); Hemoglobin 11.1 g/dL (11.5-15.3); Lymphocytes # 1.6 10^3/uL (0.8-4.8); Lymphocytes % 27.8 %; Mean Corpuscular HGB Conc 30.3 g/dL (30.0-36.0); Mean Corpuscular Hemoglobin 27.9 pg (28.0-34.0); Mean Platelet Volume 11.3 fL (7.4-10.4); Monocytes # 0.7 10^3/uL (0.2-0.9); Monocytes % 11.7 %; Neutrophils # 3.4 10^3/uL (1.8-7.7); Neutrophils % 57.8 %; Nucleated Red Blood Cells % 0 %; Platelet Count 226 10^3/cmm (130-400); Red Blood Count 3.98 10^6/uL (4.1-5.3); Red Cell Distribution Width 18.1 % (12.1-15.1); White Blood Count 5.8 10^3/uL (4.0-10.0)
[2020-03-13 08:41] LABS: Magnesium 1.8 mg/dL (1.7-2.3)
[2020-03-13 08:47] LABS: Alanine Aminotransferase 12 U/L (0-33); Albumin Level 3.7 g/dL (3.5-5.2); Alkaline Phosphatase 110 IU/L (35-105); Anion Gap 12.7 (5-19); Aspartate Amino Transferase 19 U/L (0-32); Blood Urea Nitrogen 13 mg/dL (8-23); Calcium 8.5 mg/dL (8.5-10.5); Carbon Dioxide 28 mmol/L (22-29); Chloride 104 mmol/L (98-107); Globulin 2.4 g/dL (1.3-4.6); Glomerular Filtration Rate 71.1 mL/min (90-130); Glucose 91 mg/dL (65-115); Immunoglobulin IGA 97 mg/dL (70-400); Immunoglobulin IGG 910 mg/dL (700-1600); Osmolality Calculated 288 mOsm/kg (285-295); Potassium 3.7 mmol/L (3.5-5.1); Sodium 141 mmol/L (136-145); Total Bilirubin 0.3 mg/dL (0.15-1.2); Total Protein 6.1 g/dL (6.6-8.7)
[2020-03-13 09:04] LABS: Immunoglobulin IGM 22 mg/dL (40-230)
[2020-03-13 09:21] LABS: Erythrocyte Sedimentation Rate 17 mm/hr (0-15)
--- NOTE | 2020-03-14 07:10 | ONC FU_ITS ---
Dr. Rodriguez Patient Follow-Up Note Patient: Valentin Clark Unit #: [id number]: 1950 Dicatated By: Ruiz Rodriguez M.D.Date of Visit:Mar 13, 2020 Onc Med Follow-up/Prog Note Chief Complaint: Mulitple myeloma. 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 In March 2018 she had bumped her head at work and in the process of that she became aware of a small lump, though it was actually in a slightly different area. She then noticed that the lump was getting larger. Evaluation with head MRI on 06/07/2018 showed evidence of a right parietal occipital extra-axial neoplasm, felt to be most likely meningeal in origin. It was noted to exert mass effect on the right parietal and occipital lobes, but without associated midline shift or white matter parenchymal edema. The lesion was noted to invade through the calvarium and into the subcutaneous parietal occipital scalp soft tissues. The mass measured 5.7 x 3.5 x 6 cm. 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 The area of occlusion was noted to extend over approximately 4.3 cm. She was seen by Dr. Landry and subsequently referred for neurosurgery evaluation at [facility]. Initially they had considered possible surgical resection. Her further evaluation there apparently included laboratory findings which were suspicious for myeloma, and it was recommended that she have treatment with radiation. She was seen here for further management on 07/14/2018. She then returned to Dr. Landry, and on 07/20/2018 she underwent open biopsy/resection of the extracranial extent of the mass. 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 Her further evaluation included protein electrophoresis which showed an IgG lambda monoclonal protein in the serum quantitating at 0.48 g/dL. The serum free light chain assay showed elevated lambda light chain at 374.65 mg/L with decreased kappa/lambda ratio at 0.06. The 24-hour urine protein electrophoresis showed no monoclonal protein. There were no other areas of lytic bone involvement noted on her skeletal survey. Bone marrow aspiration/biopsy on 07/30/2018 showed a monotypic plasma cell population, but it comprised only 2% of the total cellularity. A FISH panel for myeloma was unrevealing, and the standard chromosome analysis was normal. She was referred to Dr. Kaur, and she began radiation to the lesion on 07/30/2018. She completed treatment on 09/02/2018 to a total dose of 5,000 cGy. She had evaluation with CT pulmonary angiogram on 09/14/2018. It showed moderate bilateral pulmonary embolic burden. She began on anticoagulation with apixaban. During her subsequent follow-up she continued to have an open wound at the site of the plasmacytoma in the parietal-occipital scalp region. As of her follow-up visit on 10/19/2018 her M protein was stable 0.37 g/dL. In the absence of any evidence of symptomatic myeloma, she had otherwise just continued on observation/expectant management. However, due to her persistent scalp wound she had a repeat brain MRI on 01/11/2019. It showed evidence of residual neoplastic process at the resection site. There was associated dural involvement but with improved signal characteristics and decreased enhancement compared to the study from September 2018. She was seen for a follow-up visit on 01/20/2019. In view of the MRI findings, she had further evaluation with PET/CT on 02/03/2019. It showed increase in size and expansile hypermetabolic lesion within the left ilium with extension of hypermetabolic tumor into the adjacent left iliac muscle. There was a new hypermetabolic lytic process within the right S1/S2 region. A large lytic mass within the posterior calvarium did not appear to have active hypermetabolism. Also noted, though, was a hypermetabolic lesion within the medullary canal of the distal left femoral diametaphysis and an additional hypermetabolic focus in the anterior cortex of the distal right femur concerning for additional areas of myeloma. In the setting of obvious progression of her myeloma, she was recommended to begin a trial of therapy with Velcade/Revlimid/dexamethasone. Her other medical illnesses include hypertension and degenerative arthritis/degenerative disease of the spine. She has associated cervical and lumbar spinal stenosis. She has a history of endometriosis, and she has anxiety/depression. She is a nonsmoker. INTERIM HISTORY: She began cycle 1 of VRd on 02/23/2019. At that time she also received an infusion of IV Zometa for the lytic bone involvement. At that time, there was a slight increase in her baseline creatinine level to 1.2 mg/dL, and did opt to reduce her Revlimid dosage because of that. She experienced significant toxicity following her day 1 treatment, mainly having become listless and out of it over the next 4-5 days. She also lost her appetite. Her follow-up lab studies showed a drop in her calcium from baseline 10.3 mg/dL to 6.5 mg/dL with albumin 3.5 g/dL. With that finding, I did opt to hold her further Velcade, but she continued Revlimid and dexamethasone. As of 03/09/2019 she restarted treatment with Velcade at 1.3 mg/m??? weekly with Revlimid reduced to 15 mg daily on a 21/28 day schedule and the dexamethasone dosage reduced to 20 mg weekly. As of her day 15 visit, she was tolerating the treatment well. At that time she received the full dosage of Velcade, and she continued Revlimid 15 mg daily for 7 more days. She had subsequently developed diarrhea, and at her followup visit on 04/07/2019 her treatment was put on hold. She eventually continued with cycle 3 on 05/05/2019 with the Revlimid dosage further reduced to 10 mg daily on a 21/28 day schedule and with the Velcade and dexamethasone dosed weekly. Her repeat SPEP at that time showed residual M protein quantitating at 0.3 g/dL. The free light chain assay showed kappa light chain 100 mg/L, lambda light chain 122 mg/L, and kappa/lambda ratio 0.82. Her treatment was put on hold again at day 8 due to worsening neuropathy. She subsequently was able to continue the Revlimid and dexamethasone, but the Velcade remained on hold. Her repeat protein electrophoresis on 06/09/2019 showed stable M protein at 0.3 g/dL. The serum free light chain assay showed normal kappa/lambda ratio at 0.84. She was seen for a follow-up visit on 06/21/2019. At that point she appeared stable clinically. Her blood counts were adequate, and she continued with her 4th cycle of treatment. Her repeat protein electrophoresis on 07/13/2019 showed residual M protein quantitating at 0.2 g/dL. The free light chain assay showed elevated kappa light chain at 31.0 mg/L and elevated lambda light chain at 33.0 mg/L with normal kappa/lambda ratio at 0.94. Her 24-hour urine protein electrophoresis showed no detectable monoclonal protein. She was seen for a follow-up visit on 07/19/2019. At that point she complained of increased fatigue and excessive somnolence, and I did opt to put her treatment on hold. A subsequent restaging PET/CT showed no FDG avid sites of involvement. Her repeat head MRI on 08/10/2019 showed no evidence of recurrent or progressive disease. With those findings, I opted to transition her treatment to maintenance Revlimid at 5 mg daily, which she started following her visit on 08/17/2019. Her further laboratory studies on 09/22/2019 also showed a low B12 level at 189 pg/mL, and she subsequently started B12 replacement therapy. A sleep study in October 2019 showed moderate obstructive sleep apnea. At her follow-up visit on 11/28/2019 she was still mildly anemic, and transferrin saturation was still low at 17% despite being on oral iron replacement. As such, she was then given parenteral iron replacement with infusions of Injectafer on 11/28/2019 and on 12/05/2019. With the 11/28 visit she also was given denosumab 120 mg by subcutaneous injection for the lytic bone involvement. On 12/06/2019 she was admitted to the hospital with symptomatic hypocalcemia, serum calcium 5.9 mg/dL with albumin 2.9 g/dL. Renal function was stable with creatinine 1.0 mg/dL, but her potassium also was low at 3.2 mmol/L. She was given IV calcium and potassium replacement. She then continued further IV replacement as an outpatient. Despite that she was readmitted to the hospital with hypocalcemia on 12/15/2019. She was discharged home on 12/23/2019. Her evaluation included CT pulmonary angiogram which showed no evidence of pulmonary embolism. There was evidence of cardiomegaly, a small pericardial effusion, and small bilateral pleural effusions. Echocardiogram showed small, hemodynamically insignificant pericardial effusion and normal left ventricular function. She then returned here on 12/27/2019 and she has since then continued IV fluid and electrolyte replacement, daily for the first week and then on Mondays, Wednesdays, and Fridays. Despite that, she continued to feel weak and shaky, and she had ongoing complaints of nausea and anorexia. She continued to require IV fluid and electrolyte replacement but she did show gradual recovery. Her further treatment remained on hold. Repeat protein electrophoresis on 01/16/2020 showed stable M protein at 0.4 g/dL. Serum free light chain assay showed elevated free lambda light chain at 254 mg/L with decreased kappa/lambda ratio at 0.16. There was no monoclonal protein identified in the 24-hour urine protein electrophoresis. Restaging PET/CT on 02/24/2020 showed findings concerning for disease progression with new areas of marrow hypermetabolism within the right proximal humerus and within the bilateral distal femoral diametaphysis. The existing areas of involvement within the left ilium and sacrum showed further decrease in FDG uptake. She is seen for a followup visit. She has continued to gradually feel better. She has had improvement in her energy/activity tolerance. She is doing some light work at home. ECOG score is 1. Her appetite is also somewhat better. She still has early satiety. She also complains of having postprandial pain in the upper abdominal area and she still has diarrhea off and on. She does not have fever or night sweats. She says her nose runs all the time and she has a little bit of cough. She does not complain of shortness of breath or chest pain. She has nausea with the abdominal pain and she continues to have some acid reflux. She has urinary frequency and urgency. She is having pain in her right ankle and in her right knee and leg. She also has pain in her right wrist and she has some back pain. She has had pain in her right rib cage following a recent fall. She says her headaches have let up. She has some ongoing problems with balance. She has numbness in her right first 2 toes. She still has some anxiety, but overall that is also doing better. Medications: Bactrim DS (800-160 mg) Tablet Oral Take as Directed, Calcitriol 2 Capsule (of .25 mcg) Oral daily, calicum 600 Tabminder (of 600 mg) Tablet Sublingual daily, Dexamethasone (4 mg) Tablet Oral Take as Directed, Eliquis 1 Tablet (of 5 mg) Oral b.i.d., Essiac Tonic 1 Capsule Oral b.i.d., FLUoxetine HCl 1 Capsule (of 20 mg) Oral daily, Furosemide 1 - 2 Tablet (of 40 mg) Oral daily, GoodSense Stimulant Laxative 2 Tablet (of 8.6-50 mg) Oral t.i.d. PRN, Loratadine 1 Tablet (of 10 mg) Oral daily PRN, LORazepam 1 Tablet (of 0.5 mg) Oral b.i.d., Magnesium 1 Tablet (of 400 mg) Oral b.i.d., Metoprolol Tartrate 0.5 Tablet (of 25 mg) Oral b.i.d., Pantoprazole Sodium 1 Tablet (of 40 mg) Tablet, enteric coated Oral b.i.d., Potassium Chloride ER 1 Tablet (of 20 meq) Tablet, controlled release Oral daily, Probiotic Acidophilus 2 Capsule Tablet Oral daily, Revlimid 1 Tablet (of 5 mg) Capsule Oral daily, Vitamin D3 1 Capsule (of 2000 Units) Oral daily Allergies: BusPIRone HCl, Codeine and Related, Levaquin, and Morphine Derivatives. Review of Systems: Constitutional - Her energy level is improving. She is doing some light housework. Her appetite is okay and weight is up a few pounds. No fever, chills, hot flashes, or night sweats. ECOG score is 1, ENMT - She has persistant sinus drainage. No mouth sores. No sore throat or difficulty swallowing, Hematologic/Lymphatic - No abnormal bruising or bleeding, Respiratory - No shortness of breath. She has an occasional cough. No pleuritic pain or hemoptysis, Cardiovascular - No angina pain. No palpitations, Gastrointestinal - She has intermittent nausea. No vomiting. She has frequent heartburn that is managed with Protonix. She is having loose stools. No constipation. No blood in the stool or black stools. She is having upper abdominal pain that occurs after she eats, Genitourinary (F) - No dysuria or hematuria. She has urinary frequency with urgency. No incontinence, Musculoskeletal - She continues to have pain in her right leg and in her right wrist. She also has pain in her lower back in her right ribs related to a fall, Integumentary - No skin complications, Neurologic - Her headaches are improved. No dizziness. 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 No insomnia. Vital Signs: Performed on Mar 13, 2020 08:20 Height - 63.50 in Weight - 203.4 lbs (HIGH) BSA - 1.96 sq.m BMI - 35.47 (HIGH) Temperature - 97.7 F (LOW) Pulse - 52 /min (LOW) Respiration - 24 /min BP - 148/88 mm(hg) (HIGH) O2 Sat - 99 % Pain - 6 Physical Examination: Constitutional - She looks pretty good generally, Head - There is still an open wound in the right parietal/occipital area of the scalp, Eyes - Sclerae nonicteric. Conjunctivae clear, ENMT - No lesions noted in the oral cavity, Hematologic/Lymphatic - No cervical, clavicular, or axillary adenopathy, Respiratory - Lungs sound clear, Cardiovascular - Heart rhythm is regular. There is a II/ systolic murmur. There is no gallop or rub noted, Abdomen - Soft. Liver and spleen are not enlarged. There is no abdominal mass or ascites noted and there is no inguinal adenopathy, Back/Spine - There is mild tenderness in the mid thoracic spine area, Extremities - No edema, Neurologic - No focal neurologic deficits noted. Lab/Imaging: Test performed on Mar 13, 2020 08:05 Magnesium 1.8 mg/dL Sodium 141 mmol/L Potassium 3.7 mmol/L Chloride 104 mmol/L CO2 28 mmol/L Anion Gap 12.7 BUN 13 mg/dL Creatinine 0.8 mg/dL Cr Clearance (Est) 96.6700 mL/min eGFR 71.1 mL/min Glucose 91 mg/dL Calcium 8.5 mg/dL Protein, Total 6.1 g/dL Albumin 3.7 g/dL Globulin 2.4 g/dL Bilirubin, Total 0.3 mg/dL ALT (SGPT) 12 U/L AST (SGOT) 19 U/L Alkaline Phosphatase 110 IU/L ESR (Sed Rate) 17 mm/hr WBC 5.8 10 3/uL RBC 3.98 10 6/uL HGB 11.1 g/dL HCT 36.6 % MCV 92.0 fL MCH 27.9 pg MCHC 30.3 g/dL RDW 18.1 % Platelet Count 226 10 3/cmm MPV 11.3 fL Neutrophils 3.4 10 3/uL Lymphocytes 1.6 10 3/uL Monocytes 0.7 10 3/uL Eosinophils 0.1 10 3/uL Basophils 0.1 10 3/uL Neutrophil % 57.8 % Lymphocyte % 27.8 % Monocyte % 11.7 % Eosinophil % 1.5 % Basophils % 1.0 % IgG 910 mg/dL IgA 97 mg/dL IgM 22 mg/dL Impression: 1. 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 She underwent resection/open biopsy of the extracranial portion of the mass on 07/20/2018. 2. She then underwent radiation, completed on 09/02/2018 to a total dose of 5000 cGy. 3. She has persistent open wound at the biopsy site. 4. She had associated IgG lambda monoclonal protein in the serum and 2% monoclonal plasma cells in the bone marrow, consistent with underlying myeloma. Initially it appeared to otherwise not be symptomatic. 5. She was found to have pulmonary emboli by CT pulmonary angiogram on 09/14/2018. She began anticoagulation with apixaban. Her other medical illnesses include: 6. Degenerative arthritis and degenerative disease of the spine with associated cervical and lumbar spinal stenosis. 7. Hypertension. 8. Endometriosis. 9. Anxiety/depression. During subsequent followup she had increasing pain in the left hip/buttock area. Her repeat protein electrophoresis studies showed only a slight increase in her M protein, but her repeat PET/CT on 02/03/2019 showed significant progression of lytic bone involvement in the left ilium. There was also possible involvement in the distal right femur. The area of lytic involvement in the calvarium was not metabolically active. On 02/23/2019 she began cycle 1 of Velcade/Revlimid/dexamethasone. She also was given an infusion of Zometa for the lytic bone involvement. Her treatment was complicated by [employer] toxicity and hypocalcemia. Her Velcade was put on hold. She stopped the Revlimid and dexamethasone as of 03/02/2019. At that point she was still having significant pain associated with the lytic bone involvement in the left ileum. During subsequent follow-up, the hypocalcemia improved. As of 03/09/2019 she was able to restart treatment with dose reductions in the Revlimid and dexamethasone. She had remained mildly anemic, but that appeared to be due to iron deficiency. As of her cycle 2 day 15 visit, she appeared to be doing well, and she continued to her treatment as scheduled. Subsequent to that visit, she developed severe diarrhea, and her treatment was put on hold. She continued with cycle 3 on 05/05/2019. She was given a further reduction in the Revlimid dosage to 10 mg daily on a day schedue with the Velcade and dexamethasone dosed weekly. Her treatment was put on hold at day 8 due to worsening neuropathy. She subsequently was able to continue treatment with Revlimid/dexamethasone, but the Velcade remained on hold. She then continued with cycle 4 on 06/21/2019. As of her follow-up visit on 07/19/2019 her treatment was put on hold due to multiple complaints, the most significant being increased fatigue and excessive somnolence. A subsequent restaging PET/CT showed no active sites of involvement. She continued, though, to have severe fatigue/somnolence despite adjustments in her medication regimen. She also continued to have significant musculoskeletal pain, and she had a persistent open wound in the area of the vertex of her scalp. Her repeat head MRI on 08/10/2019 showed no evidence of recurrent or progressive disease. With those findings, her treatment was transitioned to maintenance Revlimid at 5 mg daily, which she started following her visit on 08/17/2019. As of her followup visit on 11/28/2019 she appeared to be tolerating the maintenance Revlimid with acceptable toxicity, and there had been no obvious progression of the myeloma. During that time she was found to have B12 deficiency, and she had been showing some improvement with B12 replacement. However, at that point she still had mild anemia, and her transferrin saturation and ferritin levels were consistent with iron deficiency despite the fact that she had been on oral iron supplementation. She was given parenteral iron replacement with 2 infusions of Injectafer. She also was given denosumab 120 mg by ssubcutaneous injection for the lytic bone involvement. On 12/06/2019 she was admitted to the hospital with symptomatic hypocalcemia. She also had hypokalemia and hypophosphatemia. I was uncertain to what extent those abnormalities were due to the Injectafer, to the denosumab, or both. However, she continued to have persistent symptomatic hypocalemia and hypophosphatemia despite having both IV or oral replacement, and she required hospital admission again on 12/15/2019. During this time there was a significant in her performance status. She also developed shortness of breath and hypoxia. A specific cause for that was not determined. Following her hospitalization she continued outpatient IV fluid and electrolyte replacement along with oral calcium and vitamin D supplements. However, she did show gradual recovery with resolution of the hypocalcemia/hypophosphatemia and she also has had gradual improvement in her performance status. Her protein electrophoresis studies in January did show evidence of progression of her myeloma with increasing free lambda light chain and her restaging PET/CT in February also showed findings suspicious for disease progression. This does not appear to be overtly symptomatic. As noted, performance status is improving, but she is still having significant GI symptoms. Plan: With evidence of disease progression I am now going to have her begin second line treatment. To minimize risk of side effects, I am going to limit her treatment to daratumumab/dexamethasone. I reviewed anticipated side effects, the most significant of which would be the risk of infusion reaction with the daratumumab. Overall, though, the risk for significant toxicities with this regimen should otherwise be low. She will return tomorrow to begin her week 1 daratumumab treatment. I will see her for a follow-up visit in 1 week. In the meantime, I am going to reduce her apixaban dosage to the maintenance regimen at 2.5 mg twice daily. I will check with Dr. Jimenes regarding her GI endoscopy studies. Signed By: Ruiz Rodriguez M.D. <<Signature on File>>
[2020-03-14 09:06] LABS: PROTEIN, TOTAL 5.4 g/dL (6.1-8.1)
[2020-03-14 13:18] LABS: ABNORMAL PROTEIN BAND 1 0.5 g/dL (NONE DETECTED); ALBUMIN 3.2 g/dL (3.8-4.8); ALPHA 1 GLOBULIN 0.2 g/dL (0.2-0.3); ALPHA 2 GLOBULIN 0.6 g/dL (0.5-0.9); BETA 1 GLOBULIN 0.3 g/dL (0.4-0.6); BETA 2 GLOBULIN 0.2 g/dL (0.2-0.5); GAMMA GLOBULIN 0.9 g/dL (0.8-1.7)
[2020-03-14 16:02] LABS: KAPPA LIGHT CHAIN, FREE, SERUM 30.9 mg/L (3.3-19.4); KAPPA/LAMBDA LIGHT CHAINS FREE 0.06 (0.26-1.65); LAMBDA LIGHT CHAIN, FREE, SERU 537.4 mg/L (5.7-26.3)
== END 2020-03-15 23:59 | disposition home or self-care (01) ==
LOC: ONCMED 06:42
PROVIDERS: Family Provider Electrodiagnostic Medicine; PCP Electrodiagnostic Medicine; Visit Provider Internal Medicine Medical Oncology
DX: C90.30 Solitary plasmacytoma not having achieved remission (principal); C79.51 Secondary malignant neoplasm of bone; E83.51 Hypocalcemia; D50.9 Iron deficiency anemia, unspecified; D47.2 Monoclonal gammopathy; I10 Essential (primary) hypertension; N80.9 Endometriosis, unspecified; F41.9 Anxiety disorder, unspecified; F32.9 Major depressive disorder, single episode, unspecified; Z79.899 Other long term (current) drug therapy; Z92.21 Personal history of antineoplastic chemotherapy
CPT/HCPCS: 36415; 80053; 82784; 83735; 83883; 84155; 84165; 85025; 85651; 99214

== ENCOUNTER 2020-03-26 09:46 | Outpatient (CLI) | payer MEDICARE, SELFPAY | END 2020-03-26 09:47 | disposition home or self-care (01) | LOC: WOUND 09:47 | PROVIDERS: Family Provider Electrodiagnostic Medicine; PCP Electrodiagnostic Medicine; Visit Provider Nurse Practitioner Family | DX: I96 Gangrene, not elsewhere classified (principal); L59.8 Other specified disorders of the skin and subcutaneous tissue related to radiation; Y84.2 Radiological procedure and radiotherapy as the cause of abnormal reaction of the patient, or of later complication, without mention of misadventure at the time of the procedure; Y78.1 Therapeutic (nonsurgical) and rehabilitative radiological devices associated with adverse incidents | CPT/HCPCS: 11042 ==

== ENCOUNTER 2020-04-11 06:43 | Outpatient (RCR) | payer MEDICARE, SELFPAY ==
[2020-03-20 15:01] LABS: Basophils # 0.1 10^3/uL (0.0-0.1); Eosinophils % 0.6 %; Hematocrit 37.9 % (37.0-47.0); Hemoglobin 11.2 g/dL (11.5-15.3); Lymphocytes # 1.4 10^3/uL (0.8-4.8); Lymphocytes % 27.7 %; Mean Corpuscular HGB Conc 29.6 g/dL (30.0-36.0); Mean Corpuscular Hemoglobin 27.7 pg (28.0-34.0); Mean Corpuscular Volume 93.8 fL (81-99); Monocytes # 0.5 10^3/uL (0.2-0.9); Monocytes % 9.8 %; Neutrophils # 3.1 10^3/uL (1.8-7.7); Neutrophils % 60.7 %; Nucleated Red Blood Cells % 0 %; Platelet Count 253 10^3/cmm (130-400); Red Blood Count 4.04 10^6/uL (4.1-5.3); Red Cell Distribution Width 17.6 % (12.1-15.1)
[2020-03-20 15:29] LABS: Alanine Aminotransferase 10 U/L (0-33); Albumin Level 3.5 g/dL (3.5-5.2); Alkaline Phosphatase 96 IU/L (35-105); Anion Gap 11.8 (5-19); Aspartate Amino Transferase 18 U/L (0-32); Blood Urea Nitrogen 10 mg/dL (8-23); Calcium 8.5 mg/dL (8.5-10.5); Carbon Dioxide 28 mmol/L (22-29); Chloride 106 mmol/L (98-107); Globulin 2.7 g/dL (1.3-4.6); Glomerular Filtration Rate 71.1 mL/min (90-130); Glucose 111 mg/dL (65-115); Osmolality Calculated 291 mOsm/kg (285-295); Potassium 3.8 mmol/L (3.5-5.1); Sodium 142 mmol/L (136-145); Total Bilirubin 0.2 mg/dL (0.15-1.2); Total Protein 6.2 g/dL (6.6-8.7)
[2020-03-21] MEDS: sodium chloride 0.9% 250 ML 999 ML IV ×2 (08:20→12:30)
[2020-03-21] MEDS: acetaminophen 325 mg Tablet 650 MG PO (08:20)
[2020-03-21] MEDS: dexamethasone 20 MG in sodium chloride 0.9% 50 ML 188 MG IV (08:46)
[2020-03-22] MEDS: acetaminophen 325 mg Tablet 650 MG PO (09:45)
[2020-03-22] MEDS: dexamethasone 20 MG in sodium chloride 0.9% 50 ML 188 MG IV (09:50)
[2020-03-22] MEDS: sodium chloride 0.9% 250 ML 999 ML IV (10:05)
[2020-03-22] MEDS: sodium chloride 0.9% (100 ml) 100 ML 75 ML (13:28)
--- NOTE | 2020-03-24 09:13 | ONC FU_ITS ---
Dr. Rodriguez Patient Follow-Up Note Patient: Valentin Clark Unit #: [id number]: 1950 Dicatated By: Ruiz Rodriguez M.D.Date of Visit:March 21, 2020 Onc Med Follow-up/Prog Note Chief Complaint: Mulitple myeloma. 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 In March 2018 she had bumped her head at work and in the process of that she became aware of a small lump, though it was actually in a slightly different area. She then noticed that the lump was getting larger. Evaluation with head MRI on 06/07/2018 showed evidence of a right parietal occipital extra-axial neoplasm, felt to be most likely meningeal in origin. It was noted to exert mass effect on the right parietal and occipital lobes, but without associated midline shift or white matter parenchymal edema. The lesion was noted to invade through the calvarium and into the subcutaneous parietal occipital scalp soft tissues. The mass measured 5.7 x 3.5 x 6 cm. 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 The area of occlusion was noted to extend over approximately 4.3 cm. She was seen by Dr. Landry and subsequently referred for neurosurgery evaluation at [facility]. Initially they had considered possible surgical resection. Her further evaluation there apparently included laboratory findings which were suspicious for myeloma, and it was recommended that she have treatment with radiation. She was seen here for further management on 07/14/2018. She then returned to Dr. Landry, and on 07/20/2018 she underwent open biopsy/resection of the extracranial extent of the mass. 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 Her further evaluation included protein electrophoresis which showed an IgG lambda monoclonal protein in the serum quantitating at 0.48 g/dL. The serum free light chain assay showed elevated lambda light chain at 374.65 mg/L with decreased kappa/lambda ratio at 0.06. The 24-hour urine protein electrophoresis showed no monoclonal protein. There were no other areas of lytic bone involvement noted on her skeletal survey. Bone marrow aspiration/biopsy on 07/30/2018 showed a monotypic plasma cell population, but it comprised only 2% of the total cellularity. A FISH panel for myeloma was unrevealing, and the standard chromosome analysis was normal. She was referred to Dr. Kaur, and she began radiation to the lesion on 07/30/2018. She completed treatment on 09/02/2018 to a total dose of 5,000 cGy. She had evaluation with CT pulmonary angiogram on 09/14/2018. It showed moderate bilateral pulmonary embolic burden. She began on anticoagulation with apixaban. During her subsequent follow-up she continued to have an open wound at the site of the plasmacytoma in the parietal-occipital scalp region. As of her follow-up visit on 10/19/2018 her M protein was stable 0.37 g/dL. In the absence of any evidence of symptomatic myeloma, she had otherwise just continued on observation/expectant management. However, due to her persistent scalp wound she had a repeat brain MRI on 01/11/2019. It showed evidence of residual neoplastic process at the resection site. There was associated dural involvement but with improved signal characteristics and decreased enhancement compared to the study from September 2018. She was seen for a follow-up visit on 01/20/2019. In view of the MRI findings, she had further evaluation with PET/CT on 02/03/2019. It showed increase in size and expansile hypermetabolic lesion within the left ilium with extension of hypermetabolic tumor into the adjacent left iliac muscle. There was a new hypermetabolic lytic process within the right S1/S2 region. A large lytic mass within the posterior calvarium did not appear to have active hypermetabolism. Also noted, though, was a hypermetabolic lesion within the medullary canal of the distal left femoral diametaphysis and an additional hypermetabolic focus in the anterior cortex of the distal right femur concerning for additional areas of myeloma. In the setting of obvious progression of her myeloma, she was recommended to begin a trial of therapy with Velcade/Revlimid/dexamethasone. Her other medical illnesses include hypertension and degenerative arthritis/degenerative disease of the spine. She has associated cervical and lumbar spinal stenosis. She has a history of endometriosis, and she has anxiety/depression. She is a nonsmoker. INTERIM HISTORY: She began cycle 1 of VRd on 02/23/2019. At that time she also received an infusion of IV Zometa for the lytic bone involvement. At that time, there was a slight increase in her baseline creatinine level to 1.2 mg/dL, and did opt to reduce her Revlimid dosage because of that. She experienced significant toxicity following her day 1 treatment, mainly having become listless and out of it over the next 4-5 days. She also lost her appetite. Her follow-up lab studies showed a drop in her calcium from baseline 10.3 mg/dL to 6.5 mg/dL with albumin 3.5 g/dL. With that finding, I did opt to hold her further Velcade, but she continued Revlimid and dexamethasone. As of 03/09/2019 she restarted treatment with Velcade at 1.3 mg/m??? weekly with Revlimid reduced to 15 mg daily on a 21/28 day schedule and the dexamethasone dosage reduced to 20 mg weekly. As of her day 15 visit, she was tolerating the treatment well. At that time she received the full dosage of Velcade, and she continued Revlimid 15 mg daily for 7 more days. She had subsequently developed diarrhea, and at her followup visit on 04/07/2019 her treatment was put on hold. She eventually continued with cycle 3 on 05/05/2019 with the Revlimid dosage further reduced to 10 mg daily on a 21/28 day schedule and with the Velcade and dexamethasone dosed weekly. Her repeat SPEP at that time showed residual M protein quantitating at 0.3 g/dL. The free light chain assay showed kappa light chain 100 mg/L, lambda light chain 122 mg/L, and kappa/lambda ratio 0.82. Her treatment was put on hold again at day 8 due to worsening neuropathy. She subsequently was able to continue the Revlimid and dexamethasone, but the Velcade remained on hold. Her repeat protein electrophoresis on 06/09/2019 showed stable M protein at 0.3 g/dL. The serum free light chain assay showed normal kappa/lambda ratio at 0.84. She was seen for a follow-up visit on 06/21/2019. At that point she appeared stable clinically. Her blood counts were adequate, and she continued with her 4th cycle of treatment. Her repeat protein electrophoresis on 07/13/2019 showed residual M protein quantitating at 0.2 g/dL. The free light chain assay showed elevated kappa light chain at 31.0 mg/L and elevated lambda light chain at 33.0 mg/L with normal kappa/lambda ratio at 0.94. Her 24-hour urine protein electrophoresis showed no detectable monoclonal protein. She was seen for a follow-up visit on 07/19/2019. At that point she complained of increased fatigue and excessive somnolence, and I did opt to put her treatment on hold. A subsequent restaging PET/CT showed no FDG avid sites of involvement. Her repeat head MRI on 08/10/2019 showed no evidence of recurrent or progressive disease. With those findings, I opted to transition her treatment to maintenance Revlimid at 5 mg daily, which she started following her visit on 08/17/2019. Her further laboratory studies on 09/22/2019 also showed a low B12 level at 189 pg/mL, and she subsequently started B12 replacement therapy. A sleep study in October 2019 showed moderate obstructive sleep apnea. At her follow-up visit on 11/28/2019 she was still mildly anemic, and transferrin saturation was still low at 17% despite being on oral iron replacement. As such, she was then given parenteral iron replacement with infusions of Injectafer on 11/28/2019 and on 12/05/2019. With the 11/28 visit she also was given denosumab 120 mg by subcutaneous injection for the lytic bone involvement. On 12/06/2019 she was admitted to the hospital with symptomatic hypocalcemia, serum calcium 5.9 mg/dL with albumin 2.9 g/dL. Renal function was stable with creatinine 1.0 mg/dL, but her potassium also was low at 3.2 mmol/L. She was given IV calcium and potassium replacement. She then continued further IV replacement as an outpatient. Despite that she was readmitted to the hospital with hypocalcemia on 12/15/2019. She was discharged home on 12/23/2019. Her evaluation included CT pulmonary angiogram which showed no evidence of pulmonary embolism. There was evidence of cardiomegaly, a small pericardial effusion, and small bilateral pleural effusions. Echocardiogram showed small, hemodynamically insignificant pericardial effusion and normal left ventricular function. She then returned here on 12/27/2019 and she has since then continued IV fluid and electrolyte replacement, daily for the first week and then on Mondays, Wednesdays, and Fridays. Despite that, she continued to feel weak and shaky, and she had ongoing complaints of nausea and anorexia. She continued to require IV fluid and electrolyte replacement but she did show gradual recovery. Her further treatment remained on hold. Repeat protein electrophoresis on 01/16/2020 showed stable M protein at 0.4 g/dL. Serum free light chain assay showed elevated free lambda light chain at 254 mg/L with decreased kappa/lambda ratio at 0.16. There was no monoclonal protein identified in the 24-hour urine protein electrophoresis. Restaging PET/CT on 02/24/2020 showed findings concerning for disease progression with new areas of marrow hypermetabolism within the right proximal humerus and within the bilateral distal femoral diametaphysis. The existing areas of involvement within the left ilium and sacrum showed further decrease in FDG uptake. With those findings, I had recommended that she proceed to second line treatment with daratumumab/dexamethasone. She was scheduled to come in last week for her initial infusion of daratumumab, but the treatment was deferred when she developed low-grade fever and other acute symptoms. She is seen for a followup visit. She complains that she has been a little more tired this past week, particularly the last 3 days. She has been napping more. Her ECOG score is 2. Her appetite has been okay, though not good. She has had low-grade fever with some sneezing and cough, but she thinks it is most likely allergy related. She did have a fever blister. Her breathing has been okay. She is not having nausea, but she still sometimes has stomach pain when she eats, and she continues to have very loose, watery stools. She has urinary frequency and urgency, and she sometimes has incontinence. She continues to have pain in her right leg and right ankle and she also has pain in her right wrist. She has numbness in her right great toe. She is not having headache or dizziness. Medications: Bactrim DS (800-160 mg) Tablet Oral Take as Directed, Calcitriol 2 Capsule (of .25 mcg) Oral daily, calicum 600 Tabminder (of 600 mg) Tablet Sublingual daily, Dexamethasone (4 mg) Tablet Oral Take as Directed, Eliquis 1 Tablet (of 5 mg) Oral b.i.d., Essiac Tonic 1 Capsule Oral b.i.d., FLUoxetine HCl 1 Capsule (of 20 mg) Oral daily, Furosemide 1 - 2 Tablet (of 40 mg) Oral daily, GoodSense Stimulant Laxative 2 Tablet (of 8.6-50 mg) Oral t.i.d. PRN, Loratadine 1 Tablet (of 10 mg) Oral daily PRN, LORazepam 1 Tablet (of 0.5 mg) Oral b.i.d., Magnesium 1 Tablet (of 400 mg) Oral b.i.d., Metoprolol Tartrate 0.5 Tablet (of 25 mg) Oral b.i.d., Pantoprazole Sodium 1 Tablet (of 40 mg) Tablet, enteric coated Oral b.i.d., Potassium Chloride ER 1 Tablet (of 20 meq) Tablet, controlled release Oral daily, Probiotic Acidophilus 2 Capsule Tablet Oral daily, Revlimid 1 Tablet (of 5 mg) Capsule Oral daily, Vitamin D3 1 Capsule (of 2000 Units) Oral daily Allergies: BusPIRone HCl, Codeine and Related, Levaquin, and Morphine Derivatives. Review of Systems: Constitutional - She has been feeling a little more tired. Her appetite is okay. She has had low-grade fever. No night sweats. ECOG score is 2, ENMT - She has some sinus drainage and sneezing, and she has had a fever blister. No sore throat or difficulty swallowing, Hematologic/Lymphatic - No abnormal bruising or bleeding, Respiratory - No shortness of breath. She has a little bit of cough. No pleuritic pain or hemoptysis, Cardiovascular - No angina pain. No palpitations, Gastrointestinal - No nausea. No vomiting. Her heartburnis managed with Protonix. She still sometimes has pain in her stomach when she eats, and she is still having loose stools. No blood in the stool or black stools, Genitourinary (F) - No dysuria or hematuria. She has urinary frequency with urgency and she sometimes has incontinence, Musculoskeletal - She has pain in her right leg and right ankle and she has pain in her right wrist, Integumentary - No skin complications, Neurologic - No headaches. No dizziness. She has numbness in her right great toe, Psychiatric - She has anxiety and depression. It is managed adequately with medication. No insomnia. Vital Signs: Performed on March 21, 2020 07:33 Height - 63.50 in Weight - 201 lbs (LOW) BSA - 1.95 sq.m BMI - 35.05 (HIGH) Temperature - 98.0 F (LOW) Pulse - 67 /min Respiration - 16 /min BP - 158/76 mm(hg) (HIGH) O2 Sat - 98 % Pain - 5 Physical Examination: Constitutional - She looks pretty good generally, Eyes - Sclerae nonicteric. Conjunctivae clear, ENMT - No lesions noted in the oral cavity, Hematologic/Lymphatic - No cervical, clavicular, or axillary adenopathy, Respiratory - Lungs sound clear, Cardiovascular - Heart rhythm is regular. There is a II/ systolic murmur. There is no gallop or rub noted, Abdomen - Soft. Liver and spleen are not enlarged. There is no abdominal mass or ascites noted and there is no inguinal adenopathy, Extremities - No edema, Neurologic - No focal neurologic deficits noted. Lab/Imaging: Test performed on March 20, 2020 09:50 Sodium 142 mmol/L Potassium 3.8 mmol/L Chloride 106 mmol/L CO2 28 mmol/L Anion Gap 11.8 BUN 10 mg/dL Creatinine 0.8 mg/dL Cr Clearance (Est) 96.6700 mL/min eGFR 71.1 mL/min Glucose 111 mg/dL Calcium 8.5 mg/dL Protein, Total 6.2 g/dL Albumin 3.5 g/dL Globulin 2.7 g/dL Bilirubin, Total 0.2 mg/dL ALT (SGPT) 10 U/L AST (SGOT) 18 U/L Alkaline Phosphatase 96 IU/L WBC 5.0 10 3/uL RBC 4.04 10 6/uL HGB 11.2 g/dL HCT 37.9 % MCV 93.8 fL MCH 27.7 pg MCHC 29.6 g/dL RDW 17.6 % Platelet Count 253 10 3/cmm MPV 12.0 fL Neutrophils 3.1 10 3/uL Lymphocytes 1.4 10 3/uL Monocytes 0.5 10 3/uL Eosinophils 0.0 10 3/uL Basophils 0.1 10 3/uL Neutrophil % 60.7 % Lymphocyte % 27.7 % Monocyte % 9.8 % Eosinophil % 0.6 % Basophils % 1.0 % Impression: 1. 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 She underwent resection/open biopsy of the extracranial portion of the mass on 07/20/2018. 2. She then underwent radiation, completed on 09/02/2018 to a total dose of 5000 cGy. 3. She has persistent open wound at the biopsy site. 4. She had associated IgG lambda monoclonal protein in the serum and 2% monoclonal plasma cells in the bone marrow, consistent with underlying myeloma. Initially it appeared to otherwise not be symptomatic. 5. She was found to have pulmonary emboli by CT pulmonary angiogram on 09/14/2018. She began anticoagulation with apixaban. Her other medical illnesses include: 6. Degenerative arthritis and degenerative disease of the spine with associated cervical and lumbar spinal stenosis. 7. Hypertension. 8. Endometriosis. 9. Anxiety/depression. During subsequent followup she had increasing pain in the left hip/buttock area. Her repeat protein electrophoresis studies showed only a slight increase in her M protein, but her repeat PET/CT on 02/03/2019 showed significant progression of lytic bone involvement in the left ilium. There was also possible involvement in the distal right femur. The area of lytic involvement in the calvarium was not metabolically active. On 02/23/2019 she began cycle 1 of Velcade/Revlimid/dexamethasone. She also was given an infusion of Zometa for the lytic bone involvement. Her treatment was complicated by [employer] toxicity and hypocalcemia. Her Velcade was put on hold. She stopped the Revlimid and dexamethasone as of 03/02/2019. At that point she was still having significant pain associated with the lytic bone involvement in the left ileum. During subsequent follow-up, the hypocalcemia improved. As of 03/09/2019 she was able to restart treatment with dose reductions in the Revlimid and dexamethasone. She had remained mildly anemic, but that appeared to be due to iron deficiency. As of her cycle 2 day 15 visit, she appeared to be doing well, and she continued to her treatment as scheduled. Subsequent to that visit, she developed severe diarrhea, and her treatment was put on hold. She continued with cycle 3 on 05/05/2019. She was given a further reduction in the Revlimid dosage to 10 mg daily on a day schedue with the Velcade and dexamethasone dosed weekly. Her treatment was put on hold at day 8 due to worsening neuropathy. She subsequently was able to continue treatment with Revlimid/dexamethasone, but the Velcade remained on hold. She then continued with cycle 4 on 06/21/2019. As of her follow-up visit on 07/19/2019 her treatment was put on hold due to multiple complaints, the most significant being increased fatigue and excessive somnolence. A subsequent restaging PET/CT showed no active sites of involvement. She continued, though, to have severe fatigue/somnolence despite adjustments in her medication regimen. She also continued to have significant musculoskeletal pain, and she had a persistent open wound in the area of the vertex of her scalp. Her repeat head MRI on 08/10/2019 showed no evidence of recurrent or progressive disease. With those findings, her treatment was transitioned to maintenance Revlimid at 5 mg daily, which she started following her visit on 08/17/2019. As of her followup visit on 11/28/2019 she appeared to be tolerating the maintenance Revlimid with acceptable toxicity, and there had been no obvious progression of the myeloma. During that time she was found to have B12 deficiency, and she had been showing some improvement with B12 replacement. However, at that point she still had mild anemia, and her transferrin saturation and ferritin levels were consistent with iron deficiency despite the fact that she had been on oral iron supplementation. She was given parenteral iron replacement with 2 infusions of Injectafer. She also was given denosumab 120 mg by ssubcutaneous injection for the lytic bone involvement. On 12/06/2019 she was admitted to the hospital with symptomatic hypocalcemia. She also had hypokalemia and hypophosphatemia. I was uncertain to what extent those abnormalities were due to the Injectafer, to the denosumab, or both. However, she continued to have persistent symptomatic hypocalemia and hypophosphatemia despite having both IV or oral replacement, and she required hospital admission again on 12/15/2019. During this time there was a significant in her performance status. She also developed shortness of breath and hypoxia. A specific cause for that was not determined. Following her hospitalization she continued outpatient IV fluid and electrolyte replacement along with oral calcium and vitamin D supplements. However, she did show gradual recovery with resolution of the hypocalcemia/hypophosphatemia and she also had gradual improvement in her performance status. Her protein electrophoresis studies in January did show evidence of progression of her myeloma with increasing free lambda light chain and her restaging PET/CT in February also showed findings suspicious for disease progression. This does not appear to be overtly symptomatic, but with evidence of disease progression, she was recommended to begin second line treatment with daratumumab/dexamethasone. Plan: She will start her week 1 daratumumab, which will be given as a split dosage over 2 days. She returns in 1 week. In the meantime, she will now stop magnesium and potassium supplements. I be reviewing her PET/CT and MRI studies with the radiologist. She will be scheduled to see a surgeon for Port-A-Cath placement. I have also been in contact with Dr. Jimenes, will be scheduling EGD and colonoscopy. Signed By: Ruiz Rodriguez M.D. <<Signature on File>>
[2020-03-27 15:27] LABS: Basophils % 0.4 %; Eosinophils % 0.4 %; Hematocrit 38.7 % (37.0-47.0); Hemoglobin 11.9 g/dL (11.5-15.3); Lymphocytes # 1.4 10^3/uL (0.8-4.8); Lymphocytes % 18.9 %; Mean Corpuscular HGB Conc 30.7 g/dL (30.0-36.0); Mean Corpuscular Hemoglobin 28.1 pg (28.0-34.0); Mean Corpuscular Volume 91.5 fL (81-99); Mean Platelet Volume 11.8 fL (7.4-10.4); Monocytes # 0.7 10^3/uL (0.2-0.9); Monocytes % 8.7 %; Neutrophils # 5.4 10^3/uL (1.8-7.7); Neutrophils % 71.5 %; Nucleated Red Blood Cells % 0 %; Platelet Count 239 10^3/cmm (130-400); Red Blood Count 4.23 10^6/uL (4.1-5.3); Red Cell Distribution Width 17.8 % (12.1-15.1); White Blood Count 7.6 10^3/uL (4.0-10.0)
[2020-03-27 15:50] LABS: Alanine Aminotransferase 21 U/L (0-33); Albumin Level 3.3 g/dL (3.5-5.2); Alkaline Phosphatase 80 IU/L (35-105); Anion Gap 14.3 (5-19); Aspartate Amino Transferase 25 U/L (0-32); Blood Urea Nitrogen 7 mg/dL (8-23); Calcium 8.4 mg/dL (8.5-10.5); Carbon Dioxide 23 mmol/L (22-29); Chloride 108 mmol/L (98-107); Globulin 2.7 g/dL (1.3-4.6); Glomerular Filtration Rate 62.1 mL/min (90-130); Glucose 205 mg/dL (65-115); Osmolality Calculated 296 mOsm/kg (285-295); Potassium 3.3 mmol/L (3.5-5.1); Sodium 142 mmol/L (136-145); Total Bilirubin 0.3 mg/dL (0.15-1.2)
[2020-03-28] MEDS: acetaminophen 325 mg Tablet 650 MG PO (10:15)
[2020-03-28] MEDS: sodium chloride 0.9% 250 ML 999 ML IV (10:20)
[2020-03-28] MEDS: dexamethasone 20 MG in sodium chloride 0.9% 50 ML 187 MG IV (10:46)
[2020-03-28 11:48] LABS: 25 Hydroxy Vitamin D 40 ng/mL (30-100); Vitamin B12 263 pg/mL (232-1245)
--- NOTE | 2020-03-28 12:45 | ONC FU_ITS ---
[facility] Patient Note Patient: Valentin Clark Unit #: [id number]: [id number] Dictated By: Sue PatelDate of Visit: March 28, 2020 Onc MED Follow-Up/Prog Note Chief Complaint: Multiple myeloma. 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 In March 2018 she had bumped her head at work and in the process of that she became aware of a small lump, though it was actually in a slightly different area. She then noticed that the lump was getting larger. Evaluation with head MRI on 06/07/2018 showed evidence of a right parietal occipital extra-axial neoplasm, felt to be most likely meningeal in origin. It was noted to exert mass effect on the right parietal and occipital lobes, but without associated midline shift or white matter parenchymal edema. The lesion was noted to invade through the calvarium and into the subcutaneous parietal occipital scalp soft tissues. The mass measured 5.7 x 3.5 x 6 cm. 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 The area of occlusion was noted to extend over approximately 4.3 cm. She was seen by Dr. Landry and subsequently referred for neurosurgery evaluation at [facility]. Initially they had considered possible surgical resection. Her further evaluation there apparently included laboratory findings which were suspicious for myeloma, and it was recommended that she have treatment with radiation. She was seen here for further management on 07/14/2018. She then returned to Dr. Landry, and on 07/20/2018 she underwent open biopsy/resection of the extracranial extent of the mass. 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 Her further evaluation included protein electrophoresis which showed an IgG lambda monoclonal protein in the serum quantitating at 0.48 g/dL. The serum free light chain assay showed elevated lambda light chain at 374.65 mg/L with decreased kappa/lambda ratio at 0.06. The 24-hour urine protein electrophoresis showed no monoclonal protein. There were no other areas of lytic bone involvement noted on her skeletal survey. Bone marrow aspiration/biopsy on 07/30/2018 showed a monotypic plasma cell population, but it comprised only 2% of the total cellularity. A FISH panel for myeloma was unrevealing, and the standard chromosome analysis was normal. She was referred to Dr. Kaur, and she began radiation to the lesion on 07/30/2018. She completed treatment on 09/02/2018 to a total dose of 5,000 cGy. She had evaluation with CT pulmonary angiogram on 09/14/2018. It showed moderate bilateral pulmonary embolic burden. She began on anticoagulation with apixaban. During her subsequent follow-up she continued to have an open wound at the site of the plasmacytoma in the parietal-occipital scalp region. As of her follow-up visit on 10/19/2018 her M protein was stable 0.37 g/dL. In the absence of any evidence of symptomatic myeloma, she had otherwise just continued on observation/expectant management. However, due to her persistent scalp wound she had a repeat brain MRI on 01/11/2019. It showed evidence of residual neoplastic process at the resection site. There was associated dural involvement but with improved signal characteristics and decreased enhancement compared to the study from September 2018. She was seen for a follow-up visit on 01/20/2019. In view of the MRI findings, she had further evaluation with PET/CT on 02/03/2019. It showed increase in size and expansile hypermetabolic lesion within the left ilium with extension of hypermetabolic tumor into the adjacent left iliac muscle. There was a new hypermetabolic lytic process within the right S1/S2 region. A large lytic mass within the posterior calvarium did not appear to have active hypermetabolism. Also noted, though, was a hypermetabolic lesion within the medullary canal of the distal left femoral diametaphysis and an additional hypermetabolic focus in the anterior cortex of the distal right femur concerning for additional areas of myeloma. In the setting of obvious progression of her myeloma, she was recommended to begin a trial of therapy with Velcade/Revlimid/dexamethasone. Her other medical illnesses include hypertension and degenerative arthritis/degenerative disease of the spine. She has associated cervical and lumbar spinal stenosis. She has a history of endometriosis, and she has anxiety/depression. She is a nonsmoker. INTERIM HISTORY: She began cycle 1 of VRd on 02/23/2019. At that time she also received an infusion of IV Zometa for the lytic bone involvement. At that time, there was a slight increase in her baseline creatinine level to 1.2 mg/dL, and it was opted to reduce her Revlimid dosage because of that. She experienced significant toxicity following her day 1 treatment, mainly having become listless and out of it over the next 4-5 days. She also lost her appetite. Her follow-up lab studies showed a drop in her calcium from baseline 10.3 mg/dL to 6.5 mg/dL with albumin 3.5 g/dL. With that finding, Dr Rodriguez did opt to hold her further Velcade, but she continued Revlimid and dexamethasone. As of 03/09/2019 she restarted treatment with Velcade at 1.3 mg/m??? weekly with Revlimid reduced to 15 mg daily on a 21/28 day schedule and the dexamethasone dosage reduced to 20 mg weekly. As of her day 15 visit, she was tolerating the treatment well. At that time she received the full dosage of Velcade, and she continued Revlimid 15 mg daily for 7 more days. She had subsequently developed diarrhea, and at her followup visit on 04/07/2019 her treatment was put on hold. She eventually continued with cycle 3 on 05/05/2019 with the Revlimid dosage further reduced to 10 mg daily on a 21/28 day schedule and with the Velcade and dexamethasone dosed weekly. Her repeat SPEP at that time showed residual M protein quantitating at 0.3 g/dL. The free light chain assay showed kappa light chain 100 mg/L, lambda light chain 122 mg/L, and kappa/lambda ratio 0.82. Her treatment was put on hold again at day 8 due to worsening neuropathy. She subsequently was able to continue the Revlimid and dexamethasone, but the Velcade remained on hold. Her repeat protein electrophoresis on 06/09/2019 showed stable M protein at 0.3 g/dL. The serum free light chain assay showed normal kappa/lambda ratio at 0.84. She was seen for a follow-up visit on 06/21/2019. At that point she appeared stable clinically. Her blood counts were adequate, and she continued with her 4th cycle of treatment. Her repeat protein electrophoresis on 07/13/2019 showed residual M protein quantitating at 0.2 g/dL. The free light chain assay showed elevated kappa light chain at 31.0 mg/L and elevated lambda light chain at 33.0 mg/L with normal kappa/lambda ratio at 0.94. Her 24-hour urine protein electrophoresis showed no detectable monoclonal protein. She was seen for a follow-up visit on 07/19/2019. At that point she complained of increased fatigue and excessive somnolence, and it was opted to put her treatment on hold. A subsequent restaging PET/CT showed no FDG avid sites of involvement. Her repeat head MRI on 08/10/2019 showed no evidence of recurrent or progressive disease. With those findings, Dr Rodriguez opted to transition her treatment to maintenance Revlimid at 5 mg daily, which she started following her visit on 08/17/2019. Her further laboratory studies on 09/22/2019 also showed a low B12 level at 189 pg/mL, and she subsequently started B12 replacement therapy. A sleep study in October 2019 showed moderate obstructive sleep apnea. At her follow-up visit on 11/28/2019 she was still mildly anemic, and transferrin saturation was still low at 17% despite being on oral iron replacement. As such, she was then given parenteral iron replacement with infusions of Injectafer on 11/28/2019 and on 12/05/2019. With the 11/28 visit she also was given denosumab 120 mg by subcutaneous injection for the lytic bone involvement. On 12/06/2019 she was admitted to the hospital with symptomatic hypocalcemia, serum calcium 5.9 mg/dL with albumin 2.9 g/dL. Renal function was stable with creatinine 1.0 mg/dL, but her potassium also was low at 3.2 mmol/L. She was given IV calcium and potassium replacement. She then continued further IV replacement as an outpatient. Despite that she was readmitted to the hospital with hypocalcemia on 12/15/2019. She was discharged home on 12/23/2019. Her evaluation included CT pulmonary angiogram which showed no evidence of pulmonary embolism. There was evidence of cardiomegaly, a small pericardial effusion, and small bilateral pleural effusions. Echocardiogram showed small, hemodynamically insignificant pericardial effusion and normal left ventricular function. She then returned here on 12/27/2019 and she has since then continued IV fluid and electrolyte replacement, daily for the first week and then on Mondays, Wednesdays, and Fridays. Despite that, she continued to feel weak and shaky, and she had ongoing complaints of nausea and anorexia. She continued to require IV fluid and electrolyte replacement but she did show gradual recovery. Her further treatment remained on hold. Repeat protein electrophoresis on 01/16/2020 showed stable M protein at 0.4 g/dL. Serum free light chain assay showed elevated free lambda light chain at 254 mg/L with decreased kappa/lambda ratio at 0.16. There was no monoclonal protein identified in the 24-hour urine protein electrophoresis. Restaging PET/CT on 02/24/2020 showed findings concerning for disease progression with new areas of marrow hypermetabolism within the right proximal humerus and within the bilateral distal femoral diametaphysis. The existing areas of involvement within the left ilium and sacrum showed further decrease in FDG uptake. With those findings, Dr Rodriguez had recommended that she proceed to second line treatment with daratumumab/dexamethasone. She was scheduled to come in last week for her initial infusion of daratumumab, but the treatment was deferred when she developed low-grade fever and other acute symptoms. Ms. Clark is here today for follow-up. She began daratumumab dexamethasone last week. Her first dose was on March 21, 2020. Her Darzalex was given in a split dosing over 2 days. She did have infusion reaction with day 1 that was treated with steroids Benadryl DuoNeb and she recovered well. She was able to complete day 2 with no effects. She is here today for follow-up and due for day 8 daratumumab. She states overall she is feeling better today but beginning on Thursday after treatment last week she began having significant joint and bone aches. She states that the pain got pretty severe. Severe enough that she actually took half of the tramadol. She states she generally avoids pain medication because she is saving them for when I have problems later on with the myeloma . She states to have the tramadol did ease her discomfort some but still had quite a bit of pain. She still having joint aches today but states they are better. She states typically ibuprofen or Motrin will help her headaches and bone aches but she has not taken that because she is on Eliquis. She states Tylenol does nothing for her pain. She apparently does have some hydrocodone from an old prescription but has not taken any of that for some time. She denies any nausea or vomiting. But she continues to have stomach issues . She states she cannot eat without having diarrhea a lot of abdominal cramping and a lot of noise in my gut . She is waiting to hear from Dr. Jimenes's office regarding upper and lower endoscopies. She has not yet heard from the surgeon regarding a port placement either. She denies any fever. She states she is had some chills off and on but that is not new for her. She denies any mouth sores, sore throat or difficulty swallowing. She denies any appetite changes. She states when she was hurting so that she does not eat a lot but the day she takes a steroid she eats really well. She denies any shortness of breath orthopnea. She denies any chest pain or palpitations. She has had no urinary changes. Her bowels are about the same as normal for her. They did not worsen with the daratumumab infusion last week. She states I think I have IBS, ulcerative colitis or something like that the way my bowels act . We did discuss Bentyl for abdominal cramps but she states she has used in the past and that has worked well. We will try that again to see if she can get some relief. Of also encouraged her to use her tramadol a little earlier and to use the hydrocodone if needed if she begins to have a pain crisis that she did after her last treatment. Her ECOG is 2. Past Medical History: Anxiety/depression Cervical stenosis Degenerative arthritis Degenerative disease of the spine Depression Endometriosis Hypertension Lumbar stenosis Past Surgical History: Bilateral cataract excisions Cholecystectomy/gastric stapling Removal of ovarian cyst x 2 Tonsillectomy Allergies: BusPIRone HCl, Codeine and Related, Levaquin, and Morphine Derivatives. Medications: Calcitriol 2 Capsule (of .25 mcg) Oral daily calicum 600 Tabminder (of 600 mg) Tablet Sublingual daily Dexamethasone (4 mg) Tablet Oral Take as Directed Eliquis 1 Tablet (of 5 mg) Oral b.i.d. FLUoxetine HCl 1 Capsule (of 20 mg) Oral daily Furosemide 1 - 2 Tablet (of 40 mg) Oral daily GoodSense Stimulant Laxative 2 Tablet (of 8.6-50 mg) Oral t.i.d. PRN Loratadine 1 Tablet (of 10 mg) Oral daily PRN LORazepam 1 Tablet (of 0.5 mg) Oral b.i.d. Metoprolol Tartrate 0.5 Tablet (of 25 mg) Oral b.i.d. Pantoprazole Sodium 1 Tablet (of 40 mg) Tablet, enteric coated Oral b.i.d. Probiotic Acidophilus 2 Capsule Tablet Oral daily traMADol HCl 1 - 2 Tablet (of 50 mg) Oral t.i.d. PRN Ventolin HFA Aerosol, solution Inhalation Vitamin D3 1 Capsule (of 2000 Units) Oral daily Family History: Ms. Clark's mother at age 84: emphysema, and congestive heart failure. Ms. Clark's father at age 53: heart disease, and myocardial infarction. Ms. Clark has 2 brothers: 1 alive, 1 . Ms. Clark's first brother's colon cancer, and type ii diabetes. Another brother's colon cancer. She has 2 sisters: 2 alive. Ms. Clark's first sister's herat disease, and type ii diabetes. Father of heart attack age 51. Mother with emphysema at age 78. She also had heart disease and diabetes. A sister has diabetes and heart disease. A brother has diabetes and he has been treated for colon cancer. A maternal uncle also had colon cancer, and a maternal aunt had breast cancer. 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 Ms. Clark has never smoked. She drinks occasionally. She is a nonsmoker. She has had just rare alcohol use. Review Of Symptoms: Constitutional Denies fevers, night sweats, fatigue but gradually improving. Has had chills off and on but no worse than they have been. Allergic/Immunologic No reactions. Eyes Denies significant visual changes. No diplopia. No amaurosis. ENMT Denies changes in hearing, sore throat, mouth sores, difficulty or changes in swallowing ability, and/or sinus drainage. Hematologic/Lymphatic Denies easy bruising or bleeding. The patient denies any tender or palpable lymph nodes. Respiratory Denies dyspnea on exertion, chest pain, cough or hemoptysis. Denies orthopnea. Cardiovascular Denies anginal chest pain, palpitations or orthopnea. Gastrointestinal Denies nausea, vomiting, GI bleeding, or constipation. She continues to have chronic bowel issues with diarrhea and abdominal cramping especially after she eats. Genitourinary (F) No hematuria, hesitancy, incontinence, discharge or other problems with urination. Musculoskeletal Denies joint swelling or redness. No decreased range of motion. Multiple areas of joint achy and pain at times. It is better than over the weekend but not completely gone. Integumentary Denies chronic rashes, inflammation, ulcerations or skin changes. Neurologic Denies headache, blurred vision, and no areas of focal weakness or numbness. Normal gait. No sensory problems. Psychiatric Denies insomnia, depression, olivia or mood swings. Vital Signs: Performed on March 28, 2020 09:12 Height - 63.50 in Weight - 199.6 lbs (LOW) BSA - 1.94 sq.m BMI - 34.80 (HIGH) Temperature - 97.1 F (LOW) Pulse - 65 /min Respiration - 17 /min BP - 143/72 mm(hg) (HIGH) O2 Sat - 97 % Pain - 8,2 - Ambulatory/capable of all self-care, unable to perform any work activities. Up and about more than 50% of waking hours. (ECOG) Physical Examination: Constitutional Alert, oriented, no acute distress. Skin pink, warm and dry. Head Normocephalic; atraumatic. Eyes Conjunctivae and sclerae are clear and without icterus. Pupils are reactive and equal. Neck Supple without masses or thyromegaly. No jugular venous distension. Hematologic/Lymphatic No petechiae or purpura. No tender or palpable lymph nodes in the cervical or supraclavicular areas. Respiratory Lungs are clear to auscultation without rhonchi or wheezing. Cardiovascular Regular rate and rhythm of heart without murmurs,clicks, gallops or rubs. Abdomen Non-tender, non-distended, no masses, ascites. .Good bowel sounds noted in all quads. No guarding or rebound tenderness. No pulsatile masses. Back/Spine Non-tender to palpation. Extremities No visible deformities, no cyanosis, clubbing or edema. Musculoskeletal No tenderness or swelling. Integumentary No rashes or lesions. Psychiatric Alert and oriented times three. Coherent speech. Verbalizes understanding of our discussions today. Constitutional Alert, oriented, no acute distress. Skin pink, warm and dry. Head Normocephalic; atraumatic. Eyes Conjunctivae and sclerae are clear and without icterus. Pupils are reactive and equal. Neck Supple without masses or thyromegaly. No jugular venous distension. Hematologic/Lymphatic No petechiae or purpura. No tender or palpable lymph nodes in the cervical or supraclavicular areas. Respiratory Lungs are clear to auscultation without rhonchi or wheezing. Cardiovascular Regular rate and rhythm of heart without murmurs,clicks, gallops or rubs. Abdomen Non-tender, non-distended, no masses, ascites. .Good bowel sounds noted in all quads. No guarding or rebound tenderness. No pulsatile masses. Back/Spine Non-tender to palpation. Extremities No visible deformities, no cyanosis, clubbing or edema. Musculoskeletal No tenderness or swelling. Integumentary No rashes or lesions. Psychiatric Alert and oriented times three. Coherent speech. Verbalizes understanding of our discussions today. Laboratory:Test performed on March 20, 2020 09:50 Sodium 142 mmol/L Potassium 3.8 mmol/L Chloride 106 mmol/L CO2 28 mmol/L Anion Gap 11.8 BUN 10 mg/dL Creatinine 0.8 mg/dL Cr Clearance (Est) 96.6700 mL/min eGFR 71.1 mL/min Glucose 111 mg/dL Calcium 8.5 mg/dL Protein, Total 6.2 g/dL Albumin 3.5 g/dL Globulin 2.7 g/dL Bilirubin, Total 0.2 mg/dL ALT (SGPT) 10 U/L AST (SGOT) 18 U/L Alkaline Phosphatase 96 IU/L WBC 5.0 10 3/uL RBC 4.04 10 6/uL HGB 11.2 g/dL HCT 37.9 % MCV 93.8 fL MCH 27.7 pg MCHC 29.6 g/dL RDW 17.6 % Platelet Count 253 10 3/cmm MPV 12.0 fL Neutrophils 3.1 10 3/uL Lymphocytes 1.4 10 3/uL Monocytes 0.5 10 3/uL Eosinophils 0.0 10 3/uL Basophils 0.1 10 3/uL Neutrophil % 60.7 % Lymphocyte % 27.7 % Monocyte % 9.8 % Eosinophil % 0.6 % Basophils % 1.0 % Test performed on Mar 13, 2020 08:05 Magnesium 1.8 mg/dL ESR (Sed Rate) 17 mm/hr IgG 910 mg/dL IgA 97 mg/dL IgM 22 mg/dL Test performed on Feb 20, 2020 09:15 Phosphorus 2.3 mg/dL Test performed on Jan 16, 2020 14:00 NT proBNP 1439 pg/mL Homocysteine 7.04 umol/L LDH (Total) 80 U/L Methylmalonic Acid 79 nmol/L Vitamin B12 1566 pg/mL [place] Free Light Chains 40.4 mg/L [place]/Lambda Free Ratio 0.16 Test performed on Jan 02, 2020 09:16 Vitamin D (25-.Hydroxy), Total 22 ng/mL Test performed on Nov 21, 2019 08:35 Ferritin 16 ng/mL % Iron Saturation 17.2 % Iron, Total 53 mcg/dL TIBC 308 mcg/dL Manual Lymphocytes 39.4 % Manual Monocytes 12.9 % Manual Eosinophils 4.7 % Manual Basophils 5.5 % NRBCs 0.0 /100 WBC Impression: 1. 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 She underwent resection/open biopsy of the extracranial portion of the mass on 07/20/2018. 2. She then underwent radiation, completed on 09/02/2018 to a total dose of 5000 cGy. 3. She has persistent open wound at the biopsy site. 4. She had associated IgG lambda monoclonal protein in the serum and 2% monoclonal plasma cells in the bone marrow, consistent with underlying myeloma. Initially it appeared to otherwise not be symptomatic. 5. She was found to have pulmonary emboli by CT pulmonary angiogram on 09/14/2018. She began anticoagulation with apixaban. Her other medical illnesses include: 6. Degenerative arthritis and degenerative disease of the spine with associated cervical and lumbar spinal stenosis. 7. Hypertension. 8. Endometriosis. 9. Anxiety/depression. During subsequent followup she had increasing pain in the left hip/buttock area. Her repeat protein electrophoresis studies showed only a slight increase in her M protein, but her repeat PET/CT on 02/03/2019 showed significant progression of lytic bone involvement in the left ilium. There was also possible involvement in the distal right femur. The area of lytic involvement in the calvarium was not metabolically active. On 02/23/2019 she began cycle 1 of Velcade/Revlimid/dexamethasone. She also was given an infusion of Zometa for the lytic bone involvement. Her treatment was complicated by [employer]FF[employer] toxicity and hypocalcemia. Her Velcade was put on hold. She stopped the Revlimid and dexamethasone as of 03/02/2019. At that point she was still having significant pain associated with the lytic bone involvement in the left ileum. During subsequent follow-up, the hypocalcemia improved. As of 03/09/2019 she was able to restart treatment with dose reductions in the Revlimid and dexamethasone. She had remained mildly anemic, but that appeared to be due to iron deficiency. As of her cycle 2 day 15 visit, she appeared to be doing well, and she continued to her treatment as scheduled. Subsequent to that visit, she developed severe diarrhea, and her treatment was put on hold. She continued with cycle 3 on 05/05/2019. She was given a further reduction in the Revlimid dosage to 10 mg daily on a 21/ day schedule with the Velcade and dexamethasone dosed weekly. Her treatment was put on hold at day 8 due to worsening neuropathy. She subsequently was able to continue treatment with Revlimid/dexamethasone, but the Velcade remained on hold. She then continued with cycle 4 on 06/21/2019. As of her follow-up visit on 07/19/2019 her treatment was put on hold due to multiple complaints, the most significant being increased fatigue and excessive somnolence. A subsequent restaging PET/CT showed no active sites of involvement. She continued, though, to have severe fatigue/somnolence despite adjustments in her medication regimen. She also continued to have significant musculoskeletal pain, and she had a persistent open wound in the area of the vertex of her scalp. Her repeat head MRI on 08/10/2019 showed no evidence of recurrent or progressive disease. With those findings, her treatment was transitioned to maintenance Revlimid at 5 mg daily, which she started following her visit on 08/17/2019. As of her followup visit on 11/28/2019 she appeared to be tolerating the maintenance Revlimid with acceptable toxicity, and there had been no obvious progression of the myeloma. During that time she was found to have B12 deficiency, and she had been showing some improvement with B12 replacement. However, at that point she still had mild anemia, and her transferrin saturation and ferritin levels were consistent with iron deficiency despite the fact that she had been on oral iron supplementation. She was given parenteral iron replacement with 2 infusions of Injectafer. She also was given denosumab 120 mg by subcutaneous injection for the lytic bone involvement. On 12/06/2019 she was admitted to the hospital with symptomatic hypocalcemia. She also had hypokalemia and hyperphosphatemia. It was uncertain to what extent those abnormalities were due to the Injectafer, to the denosumab, or both. However, she continued to have persistent symptomatic hypocalcemia and hyperphosphatemia despite having both IV or oral replacement, and she required hospital admission again on 12/15/2019. During this time there was a significant in her performance status. She also developed shortness of breath and hypoxia. A specific cause for that was not determined. Following her hospitalization she continued outpatient IV fluid and electrolyte replacement along with oral calcium and vitamin D supplements. However, she did show gradual recovery with resolution of the hypocalcemia/hyperphosphatemia and she also had gradual improvement in her performance status. Her protein electrophoresis studies in January did show evidence of progression of her myeloma with increasing free lambda light chain and her restaging PET/CT in February also showed findings suspicious for disease progression. This did not appear to be overtly symptomatic, but with evidence of disease progression, she was recommended to begin second line treatment with daratumumab/dexamethasone. Ms Clark began Daratumumab/dexamethasone on March 21, 2020. She reports significant bone/joint pain and persistent bowel issues . She states the diarrhea is no more than normal for her. The abdominal cramping has not worsened either but has not improved. Plan: 1. Proceed with week 2 daratumumab with same premeds. 2. She will take dexamethasone today and tomorrow as scheduled. 3. Labs from March 27, 2020 were reviewed in detail and discussed with Ms. Clark and a copy was given to her. WBC 7.6, hemoglobin 11.9, platelets 239,000 ANC is 5400. Creatinine is 0.9 potassium 3.3 LFTs are normal. She states she thinks her potassium is little low because she does had some diarrhea over the last day or so which is not out of the ordinary for me . 4. I have encouraged her to take the tramadol little earlier if she has the recurrent bone/joint pain. I did send a refill to [facility] pharmacy for her. We have also discussed taking the hydrocodone even a half a tablet if she has significant pain as she did last week. 5. We discussed using Bentyl or for her abdominal cramping. She states has worked well in the past. We will send in a prescription for that as well. I did advise her to try taking one half of an Imodium tablet before she eats to see if that will help with the sudden diarrhea after she eats. 6. She is awaiting word from Dr. Hamm's office as far as endoscopy and colonoscopy. She states she has a strong family history of colon cancer in her father and brother. She states she has had polyps in the past and is just behind on getting her colonoscopy done. 7. Ms. Clark was advised to call us if she has the pain as she had last weekend prior to her next visit. 8. I did request a vitamin B12 level as she has been deficient in the past and is no longer doing B12 supplements. Also ask for a vitamin D level as her result on January 02, 2020 was 22. She states she is taking 4-2000 units vitamin D daily. 9. We will plan for her to return in 1 week for week 3/8 daratumumab. I have asked for a CBC and CMP at that time. 10. Ms. Clakr was instructed to contact us in the interim should questions or problems arise. Signed By: Sue Patel-, CNP Ruiz Rodriguez MD <<Signature on File>>
[2020-04-04] MEDS: acetaminophen 325 mg Tablet 650 MG PO (09:55)
[2020-04-04] MEDS: sodium chloride 0.9% (100 ml) 100 ML 75 ML (09:55)
[2020-04-04] MEDS: sodium chloride 0.9% 250 ML 999 ML IV (09:55)
[2020-04-05] MEDS: dexamethasone 20 MG in sodium chloride 0.9% 50 ML 300 MG IV (10:40)
[2020-04-10 16:05] LABS: Basophils % 0.3 %; Eosinophils % 0.5 %; Hematocrit 38.9 % (37.0-47.0); Hemoglobin 12.1 g/dL (11.5-15.3); Lymphocytes # 1.3 10^3/uL (0.8-4.8); Mean Corpuscular HGB Conc 31.1 g/dL (30.0-36.0); Mean Corpuscular Hemoglobin 28.8 pg (28.0-34.0); Mean Corpuscular Volume 92.6 fL (81-99); Mean Platelet Volume 11.8 fL (7.4-10.4); Monocytes # 0.7 10^3/uL (0.2-0.9); Monocytes % 9.6 %; Neutrophils # 5.5 10^3/uL (1.8-7.7); Neutrophils % 72.3 %; Nucleated Red Blood Cells % 0 %; Platelet Count 240 10^3/cmm (130-400); Red Cell Distribution Width 16.9 % (12.1-15.1); White Blood Count 7.5 10^3/uL (4.0-10.0)
[2020-04-10 16:34] LABS: Alanine Aminotransferase 15 U/L (0-33); Albumin Level 3.5 g/dL (3.5-5.2); Alkaline Phosphatase 74 IU/L (35-105); Anion Gap 13.8 (5-19); Aspartate Amino Transferase 20 U/L (0-32); Blood Urea Nitrogen 11 mg/dL (8-23); Carbon Dioxide 24 mmol/L (22-29); Chloride 105 mmol/L (98-107); Globulin 2.3 g/dL (1.3-4.6); Glomerular Filtration Rate 40.6 mL/min (90-130); Glucose 85 mg/dL (65-115); Osmolality Calculated 285 mOsm/kg (285-295); Sodium 140 mmol/L (136-145); Total Bilirubin 0.2 mg/dL (0.15-1.2); Total Protein 5.8 g/dL (6.6-8.7)
[2020-04-10 16:58] LABS: Potassium 2.8 mmol/L (3.5-5.1)
[2020-04-11 09:33] LABS: Magnesium 1.9 mg/dL (1.7-2.3)
[2020-04-11] MEDS: acetaminophen 325 mg Tablet 650 MG PO (10:10)
[2020-04-11] MEDS: sodium chlor 0.9% + KCl 40 mEq 40 MEQ/1,000 ML BAG 250 MEQ IV (10:15)
[2020-04-11] MEDS: sodium chloride 0.9% 250 ML 999 ML IV (10:15)
[2020-04-11] MEDS: dexamethasone 20 MG in sodium chloride 0.9% 50 ML 187 MG IV (10:31)
--- NOTE | 2020-04-16 09:51 | ONC FU_ITS ---
[facility] Patient Note Patient: Valentin Clark Unit #: [id number]: 1950 Dictated By: Sue PatelDate of Visit: April 11, 2020 Onc MED Follow-Up/Prog Note Chief Complaint: Multiple myeloma. 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 In March 2018 she had bumped her head at work and in the process of that she became aware of a small lump, though it was actually in a slightly different area. She then noticed that the lump was getting larger. Evaluation with head MRI on 06/07/2018 showed evidence of a right parietal occipital extra-axial neoplasm, felt to be most likely meningeal in origin. It was noted to exert mass effect on the right parietal and occipital lobes, but without associated midline shift or white matter parenchymal edema. The lesion was noted to invade through the calvarium and into the subcutaneous parietal occipital scalp soft tissues. The mass measured 5.7 x 3.5 x 6 cm. 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 The area of occlusion was noted to extend over approximately 4.3 cm. She was seen by Dr. Landry and subsequently referred for neurosurgery evaluation at [facility]. Initially they had considered possible surgical resection. Her further evaluation there apparently included laboratory findings which were suspicious for myeloma, and it was recommended that she have treatment with radiation. She was seen here for further management on 07/14/2018. She then returned to Dr. Landry, and on 07/20/2018 she underwent open biopsy/resection of the extracranial extent of the mass. 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 Her further evaluation included protein electrophoresis which showed an IgG lambda monoclonal protein in the serum quantitating at 0.48 g/dL. The serum free light chain assay showed elevated lambda light chain at 374.65 mg/L with decreased kappa/lambda ratio at 0.06. The 24-hour urine protein electrophoresis showed no monoclonal protein. There were no other areas of lytic bone involvement noted on her skeletal survey. Bone marrow aspiration/biopsy on 07/30/2018 showed a monotypic plasma cell population, but it comprised only 2% of the total cellularity. A FISH panel for myeloma was unrevealing, and the standard chromosome analysis was normal. She was referred to Dr. Kaur, and she began radiation to the lesion on 07/30/2018. She completed treatment on 09/02/2018 to a total dose of 5,000 cGy. She had evaluation with CT pulmonary angiogram on 09/14/2018. It showed moderate bilateral pulmonary embolic burden. She began on anticoagulation with apixaban. During her subsequent follow-up she continued to have an open wound at the site of the plasmacytoma in the parietal-occipital scalp region. As of her follow-up visit on 10/19/2018 her M protein was stable 0.37 g/dL. In the absence of any evidence of symptomatic myeloma, she had otherwise just continued on observation/expectant management. However, due to her persistent scalp wound she had a repeat brain MRI on 01/11/2019. It showed evidence of residual neoplastic process at the resection site. There was associated dural involvement but with improved signal characteristics and decreased enhancement compared to the study from September 2018. She was seen for a follow-up visit on 01/20/2019. In view of the MRI findings, she had further evaluation with PET/CT on 02/03/2019. It showed increase in size and expansile hypermetabolic lesion within the left ilium with extension of hypermetabolic tumor into the adjacent left iliac muscle. There was a new hypermetabolic lytic process within the right S1/S2 region. A large lytic mass within the posterior calvarium did not appear to have active hypermetabolism. Also noted, though, was a hypermetabolic lesion within the medullary canal of the distal left femoral diametaphysis and an additional hypermetabolic focus in the anterior cortex of the distal right femur concerning for additional areas of myeloma. In the setting of obvious progression of her myeloma, she was recommended to begin a trial of therapy with Velcade/Revlimid/dexamethasone. Her other medical illnesses include hypertension and degenerative arthritis/degenerative disease of the spine. She has associated cervical and lumbar spinal stenosis. She has a history of endometriosis, and she has anxiety/depression. She is a nonsmoker. INTERIM HISTORY: She began cycle 1 of VRd on 02/23/2019. At that time she also received an infusion of IV Zometa for the lytic bone involvement. At that time, there was a slight increase in her baseline creatinine level to 1.2 mg/dL, and it was opted to reduce her Revlimid dosage because of that. She experienced significant toxicity following her day 1 treatment, mainly having become listless and out of it over the next 4-5 days. She also lost her appetite. Her follow-up lab studies showed a drop in her calcium from baseline 10.3 mg/dL to 6.5 mg/dL with albumin 3.5 g/dL. With that finding, Dr Rodriguez did opt to hold her further Velcade, but she continued Revlimid and dexamethasone. As of 03/09/2019 she restarted treatment with Velcade at 1.3 mg/m??? weekly with Revlimid reduced to 15 mg daily on a 21/28 day schedule and the dexamethasone dosage reduced to 20 mg weekly. As of her day 15 visit, she was tolerating the treatment well. At that time she received the full dosage of Velcade, and she continued Revlimid 15 mg daily for 7 more days. She had subsequently developed diarrhea, and at her followup visit on 04/07/2019 her treatment was put on hold. She eventually continued with cycle 3 on 05/05/2019 with the Revlimid dosage further reduced to 10 mg daily on a 21/28 day schedule and with the Velcade and dexamethasone dosed weekly. Her repeat SPEP at that time showed residual M protein quantitating at 0.3 g/dL. The free light chain assay showed kappa light chain 100 mg/L, lambda light chain 122 mg/L, and kappa/lambda ratio 0.82. Her treatment was put on hold again at day 8 due to worsening neuropathy. She subsequently was able to continue the Revlimid and dexamethasone, but the Velcade remained on hold. Her repeat protein electrophoresis on 06/09/2019 showed stable M protein at 0.3 g/dL. The serum free light chain assay showed normal kappa/lambda ratio at 0.84. She was seen for a follow-up visit on 06/21/2019. At that point she appeared stable clinically. Her blood counts were adequate, and she continued with her 4th cycle of treatment. Her repeat protein electrophoresis on 07/13/2019 showed residual M protein quantitating at 0.2 g/dL. The free light chain assay showed elevated kappa light chain at 31.0 mg/L and elevated lambda light chain at 33.0 mg/L with normal kappa/lambda ratio at 0.94. Her 24-hour urine protein electrophoresis showed no detectable monoclonal protein. She was seen for a follow-up visit on 07/19/2019. At that point she complained of increased fatigue and excessive somnolence, and it was opted to put her treatment on hold. A subsequent restaging PET/CT showed no FDG avid sites of involvement. Her repeat head MRI on 08/10/2019 showed no evidence of recurrent or progressive disease. With those findings, Dr Rodriguez opted to transition her treatment to maintenance Revlimid at 5 mg daily, which she started following her visit on 08/17/2019. Her further laboratory studies on 09/22/2019 also showed a low B12 level at 189 pg/mL, and she subsequently started B12 replacement therapy. A sleep study in October 2019 showed moderate obstructive sleep apnea. At her follow-up visit on 11/28/2019 she was still mildly anemic, and transferrin saturation was still low at 17% despite being on oral iron replacement. As such, she was then given parenteral iron replacement with infusions of Injectafer on 11/28/2019 and on 12/05/2019. With the 11/28 visit she also was given denosumab 120 mg by subcutaneous injection for the lytic bone involvement. On 12/06/2019 she was admitted to the hospital with symptomatic hypocalcemia, serum calcium 5.9 mg/dL with albumin 2.9 g/dL. Renal function was stable with creatinine 1.0 mg/dL, but her potassium also was low at 3.2 mmol/L. She was given IV calcium and potassium replacement. She then continued further IV replacement as an outpatient. Despite that she was readmitted to the hospital with hypocalcemia on 12/15/2019. She was discharged home on 12/23/2019. Her evaluation included CT pulmonary angiogram which showed no evidence of pulmonary embolism. There was evidence of cardiomegaly, a small pericardial effusion, and small bilateral pleural effusions. Echocardiogram showed small, hemodynamically insignificant pericardial effusion and normal left ventricular function. She then returned here on 12/27/2019 and she has since then continued IV fluid and electrolyte replacement, daily for the first week and then on Mondays, Wednesdays, and Fridays. Despite that, she continued to feel weak and shaky, and she had ongoing complaints of nausea and anorexia. She continued to require IV fluid and electrolyte replacement but she did show gradual recovery. Her further treatment remained on hold. Repeat protein electrophoresis on 01/16/2020 showed stable M protein at 0.4 g/dL. Serum free light chain assay showed elevated free lambda light chain at 254 mg/L with decreased kappa/lambda ratio at 0.16. There was no monoclonal protein identified in the 24-hour urine protein electrophoresis. Restaging PET/CT on 02/24/2020 showed findings concerning for disease progression with new areas of marrow hypermetabolism within the right proximal humerus and within the bilateral distal femoral diametaphysis. The existing areas of involvement within the left ilium and sacrum showed further decrease in FDG uptake. With those findings, Dr Rodriguez had recommended that she proceed to second line treatment with daratumumab/dexamethasone. She was scheduled to come in last week for her initial infusion of daratumumab, but the treatment was deferred when she developed low-grade fever and other acute symptoms. Ms. Clark is here today for follow-up. She began daratumumab dexamethasone on March 21, 2020. Her Darzalex was given in a split dosing over 2 days. She did have infusion reaction with day 1 that was treated with steroids Benadryl DuoNeb and she recovered well. She was able to complete day 2 with no effects. She is here today for follow-up and due for day 22 (week 02/21)daratumumab. She states overall she is still feeling pretty washed out and weak. She states that her diarrhea was worse over the last week. She states her stools are dark in color and look like watery coffee-ground . She states her stools and had no formed. She is only taken Imodium once or twice a day. She states when she does take it does seem to slow things down. She has not been able tolerate magnesium in the past as it did give her diarrhea. 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 She denies any fever or chills. She states states her appetite is down. She states she eats once a day but because I know I have to . She states her bladder is good. She denies any other concerns. She has had no new pain. Her ECOG is 2. Past Medical History: Anxiety/depression Cervical stenosis Degenerative arthritis Degenerative disease of the spine Depression Endometriosis Hypertension Lumbar stenosis Past Surgical History: Bilateral cataract excisions Cholecystectomy/gastric stapling Removal of ovarian cyst x 2 Tonsillectomy Allergies: BusPIRone HCl, Codeine and Related, Levaquin, and Morphine Derivatives. Medications: Acetaminophen 2 Tablet (of 500 mg) Oral PRN Calcitriol 1 Capsule (of .25 mcg) Oral b.i.d. calicum 600 Tabminder (of 600 mg) Tablet Sublingual daily Cyclobenzaprine HCl 1 Tablet (of 5 mg) Oral PRN Dexamethasone (4 mg) Tablet Oral Take as Directed Eliquis 1 Tablet (of 2.5 mg) Oral b.i.d. FLUoxetine HCl 1 Capsule (of 20 mg) Oral daily Furosemide 1 - 2 Tablet (of 40 mg) Oral daily PRN GoodSense Stimulant Laxative 2 Tablet (of 8.6-50 mg) Oral t.i.d. PRN Loratadine 1 Tablet (of 10 mg) Oral daily PRN LORazepam 1 Tablet (of 0.5 mg) Oral at bedtime Metoprolol Tartrate 0.5 Tablet (of 25 mg) Oral b.i.d. Ondansetron HCl 1 - 2 Tablet (of 4 mg) Oral PRN Pantoprazole Sodium 1 Tablet (of 40 mg) Tablet, enteric coated Oral b.i.d. Probiotic Acidophilus 1 Capsule Tablet Oral b.i.d. traMADol HCl 1 Tablet (of 50 mg) Oral t.i.d. PRN Ventolin HFA Aerosol, solution Inhalation Vitamin D3 2 Capsule (of 2000 Units) Oral daily Family History: Ms. Clark's mother at age 84: emphysema, and congestive heart failure. Ms. Clark's father at age 53: heart disease, and myocardial infarction. Ms. Clark has 2 brothers: 1 alive, 1 . Ms. Clark's first brother's colon cancer, and type ii diabetes. Another brother's colon cancer. She has 2 sisters: 2 alive. Ms. Clark's first sister's herat disease, and type ii diabetes. Father of heart attack age 51. Mother with emphysema at age 78. She also had heart disease and diabetes. A sister has diabetes and heart disease. A brother has diabetes and he has been treated for colon cancer. A maternal uncle also had colon cancer, and a maternal aunt had breast cancer. 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 Ms. Clark has never smoked. She drinks occasionally. She is a nonsmoker. She has had just rare alcohol use. Review Of Symptoms: Constitutional Denies fevers, night sweats, fatigue but stable. Appetite is decreased- just don't want to eat . Allergic/Immunologic No reactions. Eyes Denies significant visual changes. No diplopia. No amaurosis. ENMT Denies changes in hearing, sore throat, mouth sores, difficulty or changes in swallowing ability, and/or sinus drainage. Endocrine No diabetes, thyroid disease or hormone replacement. Denies hot flashes or night sweats. Hematologic/Lymphatic Denies easy bruising or bleeding. The patient denies any tender or palpable lymph nodes. Respiratory Denies dyspnea on exertion, chest pain, cough or hemoptysis. Denies orthopnea. Cardiovascular Denies anginal chest pain, palpitations or orthopnea. Gastrointestinal Denies nausea, vomiting, or constipation. She continues to have chronic bowel issues with diarrhea and abdominal cramping especially after she eats. She states her stools look like watery coffee grounds but no formed stools. Genitourinary (F) No hematuria, hesitancy, incontinence, discharge or other problems with urination. Musculoskeletal Denies joint swelling or redness. No decreased range of motion. Multiple areas of joint achy and pain at times. It is better than over the weekend but not completely gone. Integumentary Denies chronic rashes, inflammation, ulcerations or skin changes. Neurologic Denies headache, blurred vision, and no areas of focal weakness or numbness. Normal gait. No sensory problems. Psychiatric Denies insomnia, depression, olivia or mood swings. Vital Signs: Performed on April 11, 2020 09:02 Height - 63.50 in Weight - 193.2 lbs (LOW) BSA - 1.92 sq.m BMI - 33.69 (HIGH) Temperature - 97.2 F (LOW) Pulse - 63 /min Respiration - 24 /min BP - 101/64 mm(hg) O2 Sat - 97 % Pain - 7,2 - Ambulatory/capable of all self-care, unable to perform any work activities. Up and about more than 50% of waking hours. (ECOG) Physical Examination: Constitutional Alert, oriented, no acute distress. Skin pink, warm and dry. Head Normocephalic; atraumatic. Eyes Conjunctivae and sclerae are clear and without icterus. Pupils are reactive and equal. Neck Supple without masses or thyromegaly. No jugular venous distension. Hematologic/Lymphatic No petechiae or purpura. No tender or palpable lymph nodes in the cervical or supraclavicular areas. Respiratory Lungs are clear to auscultation without rhonchi or wheezing. Cardiovascular Regular rate and rhythm of heart without murmurs,clicks, gallops or rubs. Abdomen Non-tender, non-distended, no masses, ascites. .Good bowel sounds noted in all quads. No guarding or rebound tenderness. No pulsatile masses. Back/Spine Non-tender to palpation. Extremities No visible deformities, no cyanosis, clubbing or edema. Musculoskeletal No tenderness or swelling. Integumentary No rashes or lesions. Psychiatric Alert and oriented times three. Coherent speech. Verbalizes understanding of our discussions today. Laboratory:Test performed on April 10, 2020 14:05 Sodium 140 mmol/L Potassium 2.8 mmol/L Chloride 105 mmol/L CO2 24 mmol/L Anion Gap 13.8 BUN 11 mg/dL Creatinine 1.3 mg/dL Cr Clearance (Est) 59.4900 mL/min eGFR 40.6 mL/min Glucose 85 mg/dL Calcium 9.0 mg/dL Protein, Total 5.8 g/dL Albumin 3.5 g/dL Globulin 2.3 g/dL Bilirubin, Total 0.2 mg/dL ALT (SGPT) 15 U/L AST (SGOT) 20 U/L Alkaline Phosphatase 74 IU/L WBC 7.5 10 3/uL RBC 4.20 10 6/uL HGB 12.1 g/dL HCT 38.9 % MCV 92.6 fL MCH 28.8 pg MCHC 31.1 g/dL RDW 16.9 % Platelet Count 240 10 3/cmm MPV 11.8 fL Neutrophils 5.5 10 3/uL Lymphocytes 1.3 10 3/uL Monocytes 0.7 10 3/uL Eosinophils 0.0 10 3/uL Basophils 0.0 10 3/uL Neutrophil % 72.3 % Lymphocyte % 17.0 % Monocyte % 9.6 % Eosinophil % 0.5 % Basophils % 0.3 % Test performed on Mar 13, 2020 08:05 Magnesium 1.8 mg/dL ESR (Sed Rate) 17 mm/hr IgG 910 mg/dL IgA 97 mg/dL IgM 22 mg/dL Test performed on Feb 20, 2020 09:15 Phosphorus 2.3 mg/dL Test performed on Jan 16, 2020 14:00 NT proBNP 1439 pg/mL Homocysteine 7.04 umol/L LDH (Total) 80 U/L Methylmalonic Acid 79 nmol/L Vitamin B12 1566 pg/mL Cookson Free Light Chains 40.4 mg/L Cookson/Lambda Free Ratio 0.16 Test performed on Jan 02, 2020 09:16 Vitamin D (25-Hydroxy), Total 22 ng/mL Test performed on Nov 21, 2019 08:35 Ferritin 16 ng/mL % Iron Saturation 17.2 % Iron, Total 53 mcg/dL TIBC 308 mcg/dL Manual Lymphocytes 39.4 % Manual Monocytes 12.9 % Manual Eosinophils 4.7 % Manual Basophils 5.5 % NRBCs 0.0 /100 WBC Test performed on Oct 19, 2019 12:00 Protein, SPE 5.4 g/dL Albumin, SPE 3.1 g/dL Lambda Free Light Chains 78.5 mg/L Pfada-6-wpmulmpd 0.4 g/dL Napoo-0-rhopqlhz 0.7 g/dL Beta Globulin 0.4 g/dL Beta 2 Globulin 0.2 g/dL Gamma Globulin 0.6 g/dL M-Kwabena 0.2 g/dL S Immunofixation Interp SEE NOTE A poorly-defined area of restricted protein mobility is detected and is reactive with IgG and lambda antisera. THIS TEST WAS PERFORMED AT: [facility] [id number] [place] [address] ISIDORO RHODES DO,MPH Impression: 1. 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 She underwent resection/open biopsy of the extracranial portion of the mass on 07/20/2018. 2. She then underwent radiation, completed on 09/02/2018 to a total dose of 5000 cGy. 3. She has persistent open wound at the biopsy site. 4. She had associated IgG lambda monoclonal protein in the serum and 2% monoclonal plasma cells in the bone marrow, consistent with underlying myeloma. Initially it appeared to otherwise not be symptomatic. 5. She was found to have pulmonary emboli by CT pulmonary angiogram on 09/14/2018. She began anticoagulation with apixaban. Her other medical illnesses include: 6. Degenerative arthritis and degenerative disease of the spine with associated cervical and lumbar spinal stenosis. 7. Hypertension. 8. Endometriosis. 9. Anxiety/depression. During subsequent followup she had increasing pain in the left hip/buttock area. Her repeat protein electrophoresis studies showed only a slight increase in her M protein, but her repeat PET/CT on 02/03/2019 showed significant progression of lytic bone involvement in the left ilium. There was also possible involvement in the distal right femur. The area of lytic involvement in the calvarium was not metabolically active. On 02/23/2019 she began cycle 1 of Velcade/Revlimid/dexamethasone. She also was given an infusion of Zometa for the lytic bone involvement. Her treatment was complicated by [employer] toxicity and hypocalcemia. Her Velcade was put on hold. She stopped the Revlimid and dexamethasone as of 03/02/2019. At that point she was still having significant pain associated with the lytic bone involvement in the left ileum. During subsequent follow-up, the hypocalcemia improved. As of 03/09/2019 she was able to restart treatment with dose reductions in the Revlimid and dexamethasone. She had remained mildly anemic, but that appeared to be due to iron deficiency. As of her cycle 2 day 15 visit, she appeared to be doing well, and she continued to her treatment as scheduled. Subsequent to that visit, she developed severe diarrhea, and her treatment was put on hold. She continued with cycle 3 on 05/05/2019. She was given a further reduction in the Revlimid dosage to 10 mg daily on a 21/28 day schedule with the Velcade and dexamethasone dosed weekly. Her treatment was put on hold at day 8 due to worsening neuropathy. She subsequently was able to continue treatment with Revlimid/dexamethasone, but the Velcade remained on hold. She then continued with cycle 4 on 06/21/2019. As of her follow-up visit on 07/19/2019 her treatment was put on hold due to multiple complaints, the most significant being increased fatigue and excessive somnolence. A subsequent restaging PET/CT showed no active sites of involvement. She continued, though, to have severe fatigue/somnolence despite adjustments in her medication regimen. She also continued to have significant musculoskeletal pain, and she had a persistent open wound in the area of the vertex of her scalp. Her repeat head MRI on 08/10/2019 showed no evidence of recurrent or progressive disease. With those findings, her treatment was transitioned to maintenance Revlimid at 5 mg daily, which she started following her visit on 08/17/2019. As of her followup visit on 11/28/2019 she appeared to be tolerating the maintenance Revlimid with acceptable toxicity, and there had been no obvious progression of the myeloma. During that time she was found to have B12 deficiency, and she had been showing some improvement with B12 replacement. However, at that point she still had mild anemia, and her transferrin saturation and ferritin levels were consistent with iron deficiency despite the fact that she had been on oral iron supplementation. She was given parenteral iron replacement with 2 infusions of Injectafer. She also was given denosumab 120 mg by subcutaneous injection for the lytic bone involvement. On 12/06/2019 she was admitted to the hospital with symptomatic hypocalcemia. She also had hypokalemia and hyperphosphatemia. It was uncertain to what extent those abnormalities were due to the Injectafer, to the denosumab, or both. However, she continued to have persistent symptomatic hypocalcemia and hyperphosphatemia despite having both IV or oral replacement, and she required hospital admission again on 12/15/2019. During this time there was a significant in her performance status. She also developed shortness of breath and hypoxia. A specific cause for that was not determined. Following her hospitalization she continued outpatient IV fluid and electrolyte replacement along with oral calcium and vitamin D supplements. However, she did show gradual recovery with resolution of the hypocalcemia/hyperphosphatemia and she also had gradual improvement in her performance status. Her protein electrophoresis studies in January did show evidence of progression of her myeloma with increasing free lambda light chain and her restaging PET/CT in February also showed findings suspicious for disease progression. This did not appear to be overtly symptomatic, but with evidence of disease progression, she was recommended to begin second line treatment with daratumumab/dexamethasone. Ms Clark began Daratumumab/dexamethasone on March 21, 2020. She reports significant bone/joint pain and persistent bowel issues . She states the diarrhea was more than normal for her after her last treatment. The abdominal cramping has not worsened either but has not improved. She is waiting to hear from Dr Jimenes's office regarding arranging an endoscope and colonoscopy. Plan: 1. Proceed with week 4/8 daratumumab with same premeds. 2. She will take dexamethasone today and tomorrow as scheduled. 3. Labs from April 10, 2020 were reviewed in detail and discussed with Ms. Clark and a copy was given to her. WBC 7.5, hemoglobin 12.1, platelets 240,000 ANC is 5500. Creatinine is 1.3, potassium 2.8 LFTs are normal. 4. We will have her take potassium 20 mEq daily if it does not worsen her diarrhea. 5. We discussed using Bentyl l for her abdominal cramping. I did advise her to increase the Imodium tablet to four times daily at least and to continue to try to take it before she eats to see if that will help with the sudden diarrhea after she eats. 6. She is still awaiting word from Dr. Hamm's office as far as endoscopy and colonoscopy. She states she has a strong family history of colon cancer in her father and brother. She states she has had polyps in the past and is just behind on getting her colonoscopy done. 7. Ms. Clark was advised to call us if she has the pain as she had last weekend prior to her next visit. 8. We will plan for her to return in 1 week for week 5/8 daratumumab. I have asked for a CBC and CMP at that time. 9. Ms. Clark was instructed to contact us in the interim should questions or problems arise. Signed By: Sue Patel-, AOSMOOTH Rodriguez MD <<Signature on File>>
== END 2020-04-12 08:00 | disposition home or self-care (01) ==
LOC: ONCMED 06:43
PROVIDERS: Internal Medicine Medical Oncology; Family Provider Electrodiagnostic Medicine; PCP Electrodiagnostic Medicine; Visit Provider Nurse Practitioner
DX: Z51.12 Encounter for antineoplastic immunotherapy (principal); C90.00 Multiple myeloma not having achieved remission; R10.9 Unspecified abdominal pain; R19.7 Diarrhea, unspecified; M89.8X9 Other specified disorders of bone, unspecified site; S01.00XD Unspecified open wound of scalp, subsequent encounter; Y84.8 Other medical procedures as the cause of abnormal reaction of the patient, or of later complication, without mention of misadventure at the time of the procedure; M48.02 Spinal stenosis, cervical region; M48.061 Spinal stenosis, lumbar region without neurogenic claudication; I10 Essential (primary) hypertension; N80.9 Endometriosis, unspecified; F41.8 Other specified anxiety disorders; Z86.39 Personal history of other endocrine, nutritional and metabolic disease; Z86.711 Personal history of pulmonary embolism; Z79.01 Long term (current) use of anticoagulants; Z79.899 Other long term (current) drug therapy; Z92.3 Personal history of irradiation; Z80.0 Family history of malignant neoplasm of digestive organs
CPT/HCPCS: 36415; 80053; 82306; 82607; 83735; 85025; 96366; 96367; 96413; 96415; 99214; J1100; J1200; J2001; J2370; J2704; J3010; J7040; J7050; J9145

== ENCOUNTER 2020-04-12 07:55 | Day surgery (SDC) | payer MEDICARE, SELFPAY ==
[2020-04-11 12:54] VITALS: BMI 51.9
--- NOTE | 2020-04-12 | SCC_ITS ---
Procedure Done: Port-A-Cath placement into the left subclavian vein with intraoperative fluoroscopy interpretation. 2 seconds of fluoroscopic guidance, for a cumulative dose of 0.35 mGy, was provided to Dr. Soriano by the radiology department. C-arm images of the chest were saved for the patient's permanent record. LEATHA
[2020-04-12 08:11] VITALS: BMI 34.9
--- NOTE | 2020-04-12 08:33 | W.PM.OPSUD ---
Surgery/Procedure H&P Update DATE OF PROCEDURE: April 12, 2020 DATE H&P PERFORMED: 04/03/20 H&P UPDATE INFORMATION: No changes to prior documentation PLANNED PROCEDURE: Operation Date: 04/12/20 09:20 Proposed Procedures p Portacath Placement(Not Applicable) - Luis Soriano MD
--- NOTE | 2020-04-12 08:34 | ANES.PREANE2 ---
Pre-Anesthetic Assessment Pre-Anesthetic Assessment: Height/Weight: Height 1.6 m Weight 89.358 kg Proposed Procedure: Operation Date: 04/12/20 09:20 Proposed Procedures p Portacath Placement(Not Applicable) - Luis Soriano MD Last intake: Intake Last Liquid Date 04/11/20 Last Liquid Time 23:30 Last Solid Date 04/11/20 Last Solid Time 20:30 Social: Social History: No alcohol and No tobacco Exam: Pre-Anes Outpt Exam: alert, oriented x 3, clear to auscultation bilaterally and regular rate & rhythm (irreg rhythm) Airway: Submandibular: WNL Cervical ROM: WNL MP: 2 Dentition: Partials (upper and lower) History/ROS: No significant history except as noted Pulmonary: Pulmonary: CAI and Sleep apnea CV/HEM: CV/HEM: Afib and HTN : : None reported Hepatic: Hepatic: None reported GI: GI: GERD Metabolic: Metabolic: None reported Musc/skel: Musc/skel: Lower Back Pain and OA/DJD Neuropsych: Neuropsych: Anxiety, CVA (no symptoms) and Depression Anesthetic Plan: ASA status: 3 Anesthesia: Anesthesia Evaluation and MAC Risk of > 500 ml blood loss (7ml/kg in children): No PFSH Anesthesia PFSH: Medical History Depression FHx: cholecystectomy Gastroesophageal reflux Hypertension MRSA (methicillin resistant staph aureus) culture positive Multiple myeloma -has hx of IgG lambda myeloma -has had radiation treatment -f/u with Dr. 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 Landry -has had persistent open wound at area of biopsy; wound care daily Pulmonary embolism -has hx of bilateral PE -continue AC with Eliquis Surgical History History of appendectomy Hx of tonsillectomy Status post craniectomy Family History Mother CAD (coronary artery disease) Diabetes Sister CAD (coronary artery disease) Diabetes Brother Cancer Diabetes Social History Smoking and tobacco status: never smoked Alcohol intake: never Housing: House Marital status: Single History of recent travel: No Data Anesthesia Cardiac Studies: No Data to Display
[2020-04-12 08:45] VITALS: BP 132/81; PULSE 57; RESP 18; TEMP 36.2; O2SAT 95
[2020-04-12] MEDS: sodium chloride 0.9% 1,000 ML 30 ML IV (08:46)
--- NOTE | 2020-04-12 09:37 | SC_ITS ---
WS: [id number] C-ARM RADIOGRAPHS THORAX; 2 IMAGES HISTORY: Intraoperative imaging. COMPARISON: None available. Intraoperative imaging during Port-A-Cath placement. Tip of the Port-A-Cath overlies the distal SVC. SC/C-arm FL for CVA [id number] IMPRESSION: Intraoperative imaging during Port-A-Cath placement.
[2020-04-12] MEDS: heparin,porcine 1,000 unit/mL INJ 1 mL 2000 UNIT IRRIGATION (10:30)
--- NOTE | 2020-04-12 10:37 | P.OP_ITS ---
Operative Report Date of procedure: April 12, 2020 Pre-op Diagnosis: Multiple myeloma, in need of long-term central venous access. Post-op diagnosis: same Procedure Done: Port-A-Cath placement into the left subclavian vein with intraoperative fluoroscopy interpretation. Pathology: none sent Surgeon: Luis Soriano Anesthesia: MAC Estimated blood loss (mL): 5 Complications: None. Condition: stable Disposition: same day Procedure: The patient was brought to the Operating Room and was placed in a supine position on the operating room table. A monitored anesthetic was induced. The shoulders were extended by means of a posterior shoulder roll. The anterior surface of the chest and neck were prepped and draped in a sterile fashion. 1% lidocaine was used to anesthetize a small area underneath the left clavicle. The subclavian vein was accessed on the first pass with a needle and syringe as evidenced by the return of dark nonpulsatile blood. The J-wire was passed down the needle and the needle was removed. The C-arm was positioned and showed the wire extending down the vena cava. A site just inferiorly on the chest wall was anesthetized using a combination of 1% lidocaine and 0.5% bupivacaine with 1:200,000 parts of epinephrine. A transverse incision was made and an inferior pocket was created in the subcutaneous layer using cautery in preparation for port placement. The Port-A-Cath tubing was passed from the incision through the subcutaneous layer to the exit point of the J-wire. The tubing was attached to the port and was cut to an appropriate length. The introducer and sheath were pa ssed over the J-wire, and the introducer and J-wire were removed. The Port-A-Cath tubing was passed down the sheath, which was torn away. The C-arm was positioned and showed good placement of the Port-A-Cath tubing tip in the superior vena cava. The port aspirated easily and flushed well with hep flush solution. The port was sewn in place with some interrupted sutures of 3-0 PDS. The transverse incision was closed at the dermis using a single inverted suture of 3-0 Vicryl and the skin was approximated using a running subcuticular suture of 4-0 Vicryl. The small incision under the clavicle at the previous insertion site of the J wire was closed using a single inverted suture of 4-0 Vicryl. Benzoin and Steri-Strips were placed over the incisions and a sterile bandage followed. The patient was taken to the recovery area in stable condition postoperatively. INTRAOPERATIVE FLUOROSCOPY FINDINGS: Intraoperative fluoroscopic images of a Port-A-Cath placement were reviewed. An initial image reveals a J-wire entering the left subclavian vein and extending down the vena cava. Subsequent images reveal a Port-A-Cath on that side of the chest with its tubing tip in good location in the superior vena cava/right atrium junction. No obvious pneumothorax is identified.
[2020-04-12 10:43] VITALS: BP 121/62; PULSE 66; RESP 18; TEMP 36.4; O2SAT 99
[2020-04-12 10:59] VITALS: BP 125/67; PULSE 59; RESP 20; O2SAT 95
== END 2020-04-12 11:10 | disposition home or self-care (01) ==
PROVIDERS: PCP Electrodiagnostic Medicine; Visit Provider Surgery
PROC: (CPT 36561; principal; 2020-04-12 09:00)
DX: C90.00 Multiple myeloma not having achieved remission (principal); I48.91 Unspecified atrial fibrillation; I10 Essential (primary) hypertension; K21.9 Gastro-esophageal reflux disease without esophagitis; M19.90 Unspecified osteoarthritis, unspecified site; Z86.73 Personal history of transient ischemic attack (TIA), and cerebral infarction without residual deficits; Z86.14 Personal history of Methicillin resistant Staphylococcus aureus infection; Z86.711 Personal history of pulmonary embolism; Z82.49 Family history of ischemic heart disease and other diseases of the circulatory system; Z83.3 Family history of diabetes mellitus; G47.30 Sleep apnea, unspecified; Z79.01 Long term (current) use of anticoagulants; Z51.12 Encounter for antineoplastic immunotherapy; R10.9 Unspecified abdominal pain; R19.7 Diarrhea, unspecified; S01.00XD Unspecified open wound of scalp, subsequent encounter; Y84.8 Other medical procedures as the cause of abnormal reaction of the patient, or of later complication, without mention of misadventure at the time of the procedure; M48.02 Spinal stenosis, cervical region; M48.061 Spinal stenosis, lumbar region without neurogenic claudication; N80.9 Endometriosis, unspecified; F41.8 Other specified anxiety disorders; Z86.39 Personal history of other endocrine, nutritional and metabolic disease; Z79.899 Other long term (current) drug therapy; Z92.3 Personal history of irradiation; Z80.0 Family history of malignant neoplasm of digestive organs
CPT/HCPCS: 36561; 12345; 76000; 77001; C1788; J0690; J1644; J2001; J2704; J3010; J3490; J7030

== ENCOUNTER 2020-04-16 09:36 | Outpatient (CLI) | payer MEDICARE, SELFPAY | END 2020-04-16 09:37 | disposition home or self-care (01) | LOC: WOUND 09:40 | PROVIDERS: Family Provider Electrodiagnostic Medicine; PCP Electrodiagnostic Medicine; Visit Provider Nurse Practitioner Family | DX: Y84.2 Radiological procedure and radiotherapy as the cause of abnormal reaction of the patient, or of later complication, without mention of misadventure at the time of the procedure; Y78.1 Therapeutic (nonsurgical) and rehabilitative radiological devices associated with adverse incidents; L98.492 Non-pressure chronic ulcer of skin of other sites with fat layer exposed; L59.8 Other specified disorders of the skin and subcutaneous tissue related to radiation | CPT/HCPCS: 11042 ==

== ENCOUNTER 2020-04-24 | Outpatient (CLI) | payer MEDICARE, SELFPAY ==
[2020-04-24 10:46] LABS: Basophils # 0.1 10^3/uL (0.0-0.1); Basophils % 1.2 %; Eosinophils % 0.5 %; Hematocrit 42.1 % (37.0-47.0); Hemoglobin 13.2 g/dL (11.5-15.3); Lymphocytes # 1.2 10^3/uL (0.8-4.8); Lymphocytes % 20.9 %; Mean Corpuscular HGB Conc 31.4 g/dL (30.0-36.0); Mean Corpuscular Hemoglobin 28.9 pg (28.0-34.0); Mean Corpuscular Volume 92.3 fL (81-99); Monocytes # 0.5 10^3/uL (0.2-0.9); Monocytes % 8.6 %; Neutrophils # 3.9 10^3/uL (1.8-7.7); Neutrophils % 68.6 %; Nucleated Red Blood Cells % 0 %; Platelet Count 216 10^3/cmm (130-400); Red Blood Count 4.56 10^6/uL (4.1-5.3); Red Cell Distribution Width 16.2 % (12.1-15.1); White Blood Count 5.7 10^3/uL (4.0-10.0)
[2020-04-24 11:03] LABS: Alanine Aminotransferase 22 U/L (0-33); Albumin Level 3.9 g/dL (3.5-5.2); Alkaline Phosphatase 90 IU/L (35-105); Anion Gap 15.7 (5-19); Aspartate Amino Transferase 21 U/L (0-32); Blood Urea Nitrogen 12 mg/dL (8-23); Calcium 10.3 mg/dL (8.5-10.5); Carbon Dioxide 24 mmol/L (22-29); Chloride 103 mmol/L (98-107); Globulin 2.9 g/dL (1.3-4.6); Glomerular Filtration Rate 71.1 mL/min (90-130); Glucose 95 mg/dL (65-115); Osmolality Calculated 284 mOsm/kg (285-295); Potassium 3.7 mmol/L (3.5-5.1); Sodium 139 mmol/L (136-145); Total Bilirubin 0.4 mg/dL (0.15-1.2); Total Protein 6.8 g/dL (6.6-8.7)
== END 2020-04-24 23:00 | disposition home or self-care (01) ==
LOC: LAB 07-16 10:33
PROVIDERS: PCP Electrodiagnostic Medicine; Visit Provider Internal Medicine Medical Oncology
DX: C90.00 Multiple myeloma not having achieved remission (principal)
CPT/HCPCS: 80053; 85025

== ENCOUNTER 2020-05-09 06:51 | Outpatient (RCR) | payer MEDICARE, SELFPAY ==
[2020-04-17 11:20] LABS: Hematocrit 36.5 % (37.0-47.0); Hemoglobin 11.6 g/dL (11.5-15.3); Mean Corpuscular HGB Conc 31.8 g/dL (30.0-36.0); Mean Corpuscular Hemoglobin 29.4 pg (28.0-34.0); Mean Corpuscular Volume 92.4 fL (81-99); Mean Platelet Volume 12.1 fL (7.4-10.4); Platelet Count 225 10^3/cmm (130-400); Red Blood Count 3.95 10^6/uL (4.1-5.3); Red Cell Distribution Width 16.6 % (12.1-15.1); White Blood Count 5.4 10^3/uL (4.0-10.0)
[2020-04-17 11:33] LABS: Alanine Aminotransferase 14 U/L (0-33); Albumin Level 3.4 g/dL (3.5-5.2); Alkaline Phosphatase 76 IU/L (35-105); Anion Gap 13.1 (5-19); Aspartate Amino Transferase 16 U/L (0-32); Blood Urea Nitrogen 7 mg/dL (8-23); Calcium 8.6 mg/dL (8.5-10.5); Carbon Dioxide 24 mmol/L (22-29); Chloride 108 mmol/L (98-107); Globulin 2.3 g/dL (1.3-4.6); Glucose 83 mg/dL (65-115); Osmolality Calculated 289 mOsm/kg (285-295); Potassium 3.1 mmol/L (3.5-5.1); Sodium 142 mmol/L (136-145); Total Bilirubin 0.4 mg/dL (0.15-1.2); Total Protein 5.7 g/dL (6.6-8.7)
[2020-04-17 12:14] LABS: Absolute Neutrophil 3.6 10^3/cmm (1.4-6.5); Absolute Segmented Neutrophil 3.5 10/cmm (1.6-7.1); Band Neutrophils Absolute 0.1 10^3/cmm (0.0-1.2); Eosinophils 1 %; Lymphocytes 24 %; Monocytes Absolute 0.5 10^3/cmm (0.1-0.6); Platelet Estimate Normal (Normal); Segmented Neutrophils 65 %; Total Cells Counted 100 (0-100)
[2020-04-18] MEDS: acetaminophen 325 mg Tablet 650 MG PO (11:35)
[2020-04-18] MEDS: dexamethasone 20 MG in sodium chloride 0.9% 50 ML 188 MG IV (11:42)
[2020-04-18] MEDS: sodium chloride 0.9% 250 ML 999 ML IV (11:42)
[2020-04-18 14:00] LABS: Add Urine Microscopic? NO
[2020-04-18 14:14] LABS: Bilirubin Urine Neg (NEGATIVE); Blood Urine Neg (Negative); Glucose Urine UA Norm (Normal); Ketones Urine Negative (Negative); Leukocyte Esterase Urine Negative (Negative); Nitrate Urine Negative (Negative); Protein Urine Neg (Negative); Specific Gravity, Urine 1.005 (1.005-1.030); Urine Appearance Clear (CLEAR); Urine Color Colorless (Yellow); Urobilinogen Urine Norm (Negative); pH Urine 6.5 (5-7)
--- NOTE | 2020-04-22 14:53 | ONC FU_ITS ---
[facility] Patient Note Patient: Valentin Clark Unit #: [id number]: 1950 Dictated By: Sue PatelDate of Visit: Apr 18, 2020 Onc MED Follow-Up/Prog Note Chief Complaint: Multiple myeloma. 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 In March 2018 she had bumped her head at work and in the process of that she became aware of a small lump, though it was actually in a slightly different area. She then noticed that the lump was getting larger. Evaluation with head MRI on 06/07/2018 showed evidence of a right parietal occipital extra-axial neoplasm, felt to be most likely meningeal in origin. It was noted to exert mass effect on the right parietal and occipital lobes, but without associated midline shift or white matter parenchymal edema. The lesion was noted to invade through the calvarium and into the subcutaneous parietal occipital scalp soft tissues. The mass measured 5.7 x 3.5 x 6 cm. 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 The area of occlusion was noted to extend over approximately 4.3 cm. She was seen by Dr. Landry and subsequently referred for neurosurgery evaluation at [facility]. Initially they had considered possible surgical resection. Her further evaluation there apparently included laboratory findings which were suspicious for myeloma, and it was recommended that she have treatment with radiation. She was seen here for further management on 07/14/2018. She then returned to Dr. Landry, and on 07/20/2018 she underwent open biopsy/resection of the extracranial extent of the mass. 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 Her further evaluation included protein electrophoresis which showed an IgG lambda monoclonal protein in the serum quantitating at 0.48 g/dL. The serum free light chain assay showed elevated lambda light chain at 374.65 mg/L with decreased kappa/lambda ratio at 0.06. The 24-hour urine protein electrophoresis showed no monoclonal protein. There were no other areas of lytic bone involvement noted on her skeletal survey. Bone marrow aspiration/biopsy on 07/30/2018 showed a monotypic plasma cell population, but it comprised only 2% of the total cellularity. A FISH panel for myeloma was unrevealing, and the standard chromosome analysis was normal. She was referred to Dr. Kaur, and she began radiation to the lesion on 07/30/2018. She completed treatment on 09/02/2018 to a total dose of 5,000 cGy. She had evaluation with CT pulmonary angiogram on 09/14/2018. It showed moderate bilateral pulmonary embolic burden. She began on anticoagulation with apixaban. During her subsequent follow-up she continued to have an open wound at the site of the plasmacytoma in the parietal-occipital scalp region. As of her follow-up visit on 10/19/2018 her M protein was stable 0.37 g/dL. In the absence of any evidence of symptomatic myeloma, she had otherwise just continued on observation/expectant management. However, due to her persistent scalp wound she had a repeat brain MRI on 01/11/2019. It showed evidence of residual neoplastic process at the resection site. There was associated dural involvement but with improved signal characteristics and decreased enhancement compared to the study from September 2018. She was seen for a follow-up visit on 01/20/2019. In view of the MRI findings, she had further evaluation with PET/CT on 02/03/2019. It showed increase in size and expansile hypermetabolic lesion within the left ilium with extension of hypermetabolic tumor into the adjacent left iliac muscle. There was a new hypermetabolic lytic process within the right S1/S2 region. A large lytic mass within the posterior calvarium did not appear to have active hypermetabolism. Also noted, though, was a hypermetabolic lesion within the medullary canal of the distal left femoral diametaphysis and an additional hypermetabolic focus in the anterior cortex of the distal right femur concerning for additional areas of myeloma. In the setting of obvious progression of her myeloma, she was recommended to begin a trial of therapy with Velcade/Revlimid/dexamethasone. Her other medical illnesses include hypertension and degenerative arthritis/degenerative disease of the spine. She has associated cervical and lumbar spinal stenosis. She has a history of endometriosis, and she has anxiety/depression. She is a nonsmoker. INTERIM HISTORY: She began cycle 1 of VRd on 02/23/2019. At that time she also received an infusion of IV Zometa for the lytic bone involvement. At that time, there was a slight increase in her baseline creatinine level to 1.2 mg/dL, and it was opted to reduce her Revlimid dosage because of that. She experienced significant toxicity following her day 1 treatment, mainly having become listless and out of it over the next 4-5 days. She also lost her appetite. Her follow-up lab studies showed a drop in her calcium from baseline 10.3 mg/dL to 6.5 mg/dL with albumin 3.5 g/dL. With that finding, Dr Rodriguez did opt to hold her further Velcade, but she continued Revlimid and dexamethasone. As of 03/09/2019 she restarted treatment with Velcade at 1.3 mg/m??? weekly with Revlimid reduced to 15 mg daily on a 21/28 day schedule and the dexamethasone dosage reduced to 20 mg weekly. As of her day 15 visit, she was tolerating the treatment well. At that time she received the full dosage of Velcade, and she continued Revlimid 15 mg daily for 7 more days. She had subsequently developed diarrhea, and at her followup visit on 04/07/2019 her treatment was put on hold. She eventually continued with cycle 3 on 05/05/2019 with the Revlimid dosage further reduced to 10 mg daily on a 21/28 day schedule and with the Velcade and dexamethasone dosed weekly. Her repeat SPEP at that time showed residual M protein quantitating at 0.3 g/dL. The free light chain assay showed kappa light chain 100 mg/L, lambda light chain 122 mg/L, and kappa/lambda ratio 0.82. Her treatment was put on hold again at day 8 due to worsening neuropathy. She subsequently was able to continue the Revlimid and dexamethasone, but the Velcade remained on hold. Her repeat protein electrophoresis on 06/09/2019 showed stable M protein at 0.3 g/dL. The serum free light chain assay showed normal kappa/lambda ratio at 0.84. She was seen for a follow-up visit on 06/21/2019. At that point she appeared stable clinically. Her blood counts were adequate, and she continued with her 4th cycle of treatment. Her repeat protein electrophoresis on 07/13/2019 showed residual M protein quantitating at 0.2 g/dL. The free light chain assay showed elevated kappa light chain at 31.0 mg/L and elevated lambda light chain at 33.0 mg/L with normal kappa/lambda ratio at 0.94. Her 24-hour urine protein electrophoresis showed no detectable monoclonal protein. She was seen for a follow-up visit on 07/19/2019. At that point she complained of increased fatigue and excessive somnolence, and it was opted to put her treatment on hold. A subsequent restaging PET/CT showed no FDG avid sites of involvement. Her repeat head MRI on 08/10/2019 showed no evidence of recurrent or progressive disease. With those findings, Dr Rodriguez opted to transition her treatment to maintenance Revlimid at 5 mg daily, which she started following her visit on 08/17/2019. Her further laboratory studies on 09/22/2019 also showed a low B12 level at 189 pg/mL, and she subsequently started B12 replacement therapy. A sleep study in October 2019 showed moderate obstructive sleep apnea. At her follow-up visit on 11/28/2019 she was still mildly anemic, and transferrin saturation was still low at 17% despite being on oral iron replacement. As such, she was then given parenteral iron replacement with infusions of Injectafer on 11/28/2019 and on 12/05/2019. With the 11/28 visit she also was given denosumab 120 mg by subcutaneous injection for the lytic bone involvement. On 12/06/2019 she was admitted to the hospital with symptomatic hypocalcemia, serum calcium 5.9 mg/dL with albumin 2.9 g/dL. Renal function was stable with creatinine 1.0 mg/dL, but her potassium also was low at 3.2 mmol/L. She was given IV calcium and potassium replacement. She then continued further IV replacement as an outpatient. Despite that she was readmitted to the hospital with hypocalcemia on 12/15/2019. She was discharged home on 12/23/2019. Her evaluation included CT pulmonary angiogram which showed no evidence of pulmonary embolism. There was evidence of cardiomegaly, a small pericardial effusion, and small bilateral pleural effusions. Echocardiogram showed small, hemodynamically insignificant pericardial effusion and normal left ventricular function. She then returned here on 12/27/2019 and she has since then continued IV fluid and electrolyte replacement, daily for the first week and then on Mondays, Wednesdays, and Fridays. Despite that, she continued to feel weak and shaky, and she had ongoing complaints of nausea and anorexia. She continued to require IV fluid and electrolyte replacement but she did show gradual recovery. Her further treatment remained on hold. Repeat protein electrophoresis on 01/16/2020 showed stable M protein at 0.4 g/dL. Serum free light chain assay showed elevated free lambda light chain at 254 mg/L with decreased kappa/lambda ratio at 0.16. There was no monoclonal protein identified in the 24-hour urine protein electrophoresis. Restaging PET/CT on 02/24/2020 showed findings concerning for disease progression with new areas of marrow hypermetabolism within the right proximal humerus and within the bilateral distal femoral diametaphysis. The existing areas of involvement within the left ilium and sacrum showed further decrease in FDG uptake. With those findings, Dr Rodriguez had recommended that she proceed to second line treatment with daratumumab/dexamethasone. She was scheduled to come in last week for her initial infusion of daratumumab, but the treatment was deferred when she developed low-grade fever and other acute symptoms. Ms. Clark is here today for follow-up. She began daratumumab dexamethasone on March 21, 2020. Her Darzalex was given in a split dosing over 2 days. She did have infusion reaction with day 1 that was treated with steroids Benadryl DuoNeb and she recovered well. She was able to complete day 2 with no effects. She is here today for follow-up and due for week 8 daratumumab. She states overall she feels okay. She feels better this week than last week. She did have a left sided venous access device placed by Dr. Soriano since her last visit. Insertion site is healing well. She is tolerated that procedure well. She states she still her Dr. Hamm's office regarding the colonoscopy and endoscopy. She plans to call them later today. She states her appetite is okay she eats because because I know I absolutely have to . Her energy is marginal at times other times it is good. She states she is able to do her chores around the house but has to rest intermittently. She denies any chest pain or palpitations. She is had no shortness of breath orthopnea. She denies any fever or chills or any signs of infection over the last 72 hours. She states her bowels and bladder have been normal for her. She denies any lower extremity edema. Her ECOG is 1. Past Medical History: Anxiety/depression Cervical stenosis Degenerative arthritis Degenerative disease of the spine Depression Endometriosis Hypertension Lumbar stenosis Past Surgical History: Bilateral cataract excisions Cholecystectomy/gastric stapling Removal of ovarian cyst x 2 Tonsillectomy Allergies: BusPIRone HCl, Codeine and Related, Levaquin, and Morphine Derivatives. Medications: Acetaminophen 2 Tablet (of 500 mg) Oral PRN Calcitriol 1 Capsule (of .25 mcg) Oral b.i.d. calicum 600 Tabminder (of 600 mg) Tablet Sublingual daily Cyclobenzaprine HCl 1 Tablet (of 5 mg) Oral PRN Dexamethasone (4 mg) Tablet Oral Take as Directed Eliquis 1 Tablet (of 2.5 mg) Oral b.i.d. FLUoxetine HCl 1 Capsule (of 20 mg) Oral daily Furosemide 1 - 2 Tablet (of 40 mg) Oral daily PRN GoodSense Stimulant Laxative 2 Tablet (of 8.6-50 mg) Oral t.i.d. PRN Loratadine 1 Tablet (of 10 mg) Oral daily PRN LORazepam 1 Tablet (of 0.5 mg) Oral at bedtime Metoprolol Tartrate 0.5 Tablet (of 25 mg) Oral b.i.d. Ondansetron HCl 1 - 2 Tablet (of 4 mg) Oral PRN Pantoprazole Sodium 1 Tablet (of 40 mg) Tablet, enteric coated Oral b.i.d. Potassium Chloride ER 0.5 Tablet (of 20 meq) Tablet, controlled release Oral daily Probiotic Acidophilus 1 Capsule Tablet Oral b.i.d. traMADol HCl 1 Tablet (of 50 mg) Oral t.i.d. PRN Ventolin HFA Aerosol, solution Inhalation Vitamin D3 2 Capsule (of 2000 Units) Oral daily Family History: Ms. Clark's mother at age 84: emphysema, and congestive heart failure. Ms. Clark's father at age 53: heart disease, and myocardial infarction. Ms. Clark has 2 brothers: 1 alive, 1 . Ms. Clark's first brother's colon cancer, and type ii diabetes. Another brother's colon cancer. She has 2 sisters: 2 alive. Ms. Clark's first sister's herat disease, and type ii diabetes. Father of heart attack age 51. Mother with emphysema at age 78. She also had heart disease and diabetes. A sister has diabetes and heart disease. A brother has diabetes and he has been treated for colon cancer. A maternal uncle also had colon cancer, and a maternal aunt had breast cancer. 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 Ms. Clark has never smoked. She drinks occasionally. She is a nonsmoker. She has had just rare alcohol use. Review Of Symptoms: Constitutional Denies fevers, chills, night sweats, excessive fatigue or weight loss. Allergic/Immunologic No reactions. Eyes Denies significant visual changes. No diplopia. No amaurosis. ENMT Denies changes in hearing, sore throat, mouth sores, difficulty or changes in swallowing ability, and/or sinus drainage. Endocrine No diabetes, thyroid disease or hormone replacement. Denies hot flashes or night sweats. Hematologic/Lymphatic Denies easy bruising or bleeding. The patient denies any tender or palpable lymph nodes. Breasts Respiratory Denies dyspnea on exertion, chest pain, cough or hemoptysis. Denies orthopnea. Cardiovascular Denies anginal chest pain, palpitations or orthopnea. Gastrointestinal Denies nausea, vomiting, diarrhea, GI bleeding, or constipation. Denies change in bowel habits and/or stool color, no heartburn or early satiety. Genitourinary (F) No hematuria, hesitancy, incontinence, vaginal bleeding, discharge or other problems with urination. Musculoskeletal Denies joint pain, swelling or redness. No decreased range of motion. Integumentary Denies chronic rashes, inflammation, ulcerations or skin changes. Neurologic Denies headache, blurred vision, and no areas of focal weakness or numbness. Normal gait. No sensory problems. Psychiatric Denies insomnia, depression, olivia or mood swings. Vital Signs: Performed on Apr 18, 2020 10:26 Height - 63.50 in Weight - 201.2 lbs (HIGH) BSA - 1.95 sq.m BMI - 35.08 (HIGH) Temperature - 97.6 F (LOW) Pulse - 63 /min Respiration - 18 /min BP - 176/86 mm(hg) (HIGH) O2 Sat - 97 % Pain - 0,1 - No physically strenuous activity, but ambulatory and able to carry out light or sedentary work (e.g. office work, light house work). (ECOG) Physical Examination: Constitutional Alert, oriented, no acute distress. Skin pink, warm and dry. Head Normocephalic; atraumatic. Posterior scalp wound is healing well without exudate or redness. It remains open-covered with dressing-new protrusion (slight at lower edge of wound)- it is bone . Eyes Conjunctivae and sclerae are clear and without icterus. Pupils are reactive and equal. Neck Supple without masses or thyromegaly. No jugular venous distension. Hematologic/Lymphatic No petechiae or purpura. No tender or palpable lymph nodes in the cervical or supraclavicular areas. Respiratory Lungs are clear to auscultation without rhonchi or wheezing. Cardiovascular Regular rate and rhythm of heart without murmurs,clicks, gallops or rubs. Chest Chest is symmetric without chest wall deformities. New left sided port-accessed yesterday by home health for lab draw. Abdomen Non-tender, non-distended, no masses, ascites. .Good bowel sounds noted in all quads. No guarding or rebound tenderness. No pulsatile masses. Back/Spine Non-tender to palpation. Extremities No visible deformities, no cyanosis, clubbing or edema. Musculoskeletal No tenderness or swelling. Integumentary No rashes or lesions. Psychiatric Alert and oriented times three. Coherent speech. Verbalizes understanding of our discussions today. Laboratory:Test performed on Apr 17, 2020 09:45 Glucose 83 mg/dL BUN 7 mg/dL Creatinine 0.7 mg/dL Cr Clearance (Est) 110.48 mL/min Sodium 142 mmol/L Potassium 3.1 mmol/L Chloride 108 mmol/L CO2 24 mmol/L Calcium 8.6 mg/dL Protein, Total 5.7 g/dL Albumin 3.4 g/dL Globulin 2.3 g/dL Bilirubin, Total 0.4 mg/dL Alkaline Phosphatase 76 IU/L AST (SGOT) 16 IU/L ALT (SGPT) 14 IU/L WBC 5.4 10^9/L RBC 3.95 10^12/L HGB 11.6 g/dL HCT 36.5 % MCV 92.4 fl MCH 29.4 pg MCHC 31.8 g/dL RDW 16.6 % Platelet Count 225 10^9/L MPV 12.1 fL Monocytes 0.5 10^9/L Eosinophils 0.0 10^9/L Manual Lymphocytes 24 % Manual Monocytes 9.0 % Manual Eosinophils 1 % Impression: 1. 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 She underwent resection/open biopsy of the extracranial portion of the mass on 07/20/2018. 2. She then underwent radiation, completed on 09/02/2018 to a total dose of 5000 cGy. 3. She has persistent open wound at the biopsy site. 4. She had associated IgG lambda monoclonal protein in the serum and 2% monoclonal plasma cells in the bone marrow, consistent with underlying myeloma. Initially it appeared to otherwise not be symptomatic. 5. She was found to have pulmonary emboli by CT pulmonary angiogram on 09/14/2018. She began anticoagulation with apixaban. Her other medical illnesses include: 6. Degenerative arthritis and degenerative disease of the spine with associated cervical and lumbar spinal stenosis. 7. Hypertension. 8. Endometriosis. 9. Anxiety/depression. During subsequent followup she had increasing pain in the left hip/buttock area. Her repeat protein electrophoresis studies showed only a slight increase in her M protein, but her repeat PET/CT on 02/03/2019 showed significant progression of lytic bone involvement in the left ilium. There was also possible involvement in the distal right femur. The area of lytic involvement in the calvarium was not metabolically active. On 02/23/2019 she began cycle 1 of Velcade/Revlimid/dexamethasone. She also was given an infusion of Zometa for the lytic bone involvement. Her treatment was complicated by CASING TIER toxicity and hypocalcemia. Her Velcade was put on hold. She stopped the Revlimid and dexamethasone as of 03/02/2019. At that point she was still having significant pain associated with the lytic bone involvement in the left ileum. During subsequent follow-up, the hypocalcemia improved. As of 03/09/2019 she was able to restart treatment with dose reductions in the Revlimid and dexamethasone. She had remained mildly anemic, but that appeared to be due to iron deficiency. As of her cycle 2 day 15 visit, she appeared to be doing well, and she continued to her treatment as scheduled. Subsequent to that visit, she developed severe diarrhea, and her treatment was put on hold. She continued with cycle 3 on 05/05/2019. She was given a further reduction in the Revlimid dosage to 10 mg daily on a 21 day schedule with the Velcade and dexamethasone dosed weekly. Her treatment was put on hold at day 8 due to worsening neuropathy. She subsequently was able to continue treatment with Revlimid/dexamethasone, but the Velcade remained on hold. She then continued with cycle 4 on 06/21/2019. As of her follow-up visit on 07/19/2019 her treatment was put on hold due to multiple complaints, the most significant being increased fatigue and excessive somnolence. A subsequent restaging PET/CT showed no active sites of involvement. She continued, though, to have severe fatigue/somnolence despite adjustments in her medication regimen. She also continued to have significant musculoskeletal pain, and she had a persistent open wound in the area of the vertex of her scalp. Her repeat head MRI on 08/10/2019 showed no evidence of recurrent or progressive disease. With those findings, her treatment was transitioned to maintenance Revlimid at 5 mg daily, which she started following her visit on 08/17/2019. As of her followup visit on 11/28/2019 she appeared to be tolerating the maintenance Revlimid with acceptable toxicity, and there had been no obvious progression of the myeloma. During that time she was found to have B12 deficiency, and she had been showing some improvement with B12 replacement. However, at that point she still had mild anemia, and her transferrin saturation and ferritin levels were consistent with iron deficiency despite the fact that she had been on oral iron supplementation. She was given parenteral iron replacement with 2 infusions of Injectafer. She also was given denosumab 120 mg by subcutaneous injection for the lytic bone involvement. On 12/06/2019 she was admitted to the hospital with symptomatic hypocalcemia. She also had hypokalemia and hyperphosphatemia. It was uncertain to what extent those abnormalities were due to the Injectafer, to the denosumab, or both. However, she continued to have persistent symptomatic hypocalcemia and hyperphosphatemia despite having both IV or oral replacement, and she required hospital admission again on 12/15/2019. During this time there was a significant in her performance status. She also developed shortness of breath and hypoxia. A specific cause for that was not determined. Following her hospitalization she continued outpatient IV fluid and electrolyte replacement along with oral calcium and vitamin D supplements. However, she did show gradual recovery with resolution of the hypocalcemia/hyperphosphatemia and she also had gradual improvement in her performance status. Her protein electrophoresis studies in January did show evidence of progression of her myeloma with increasing free lambda light chain and her restaging PET/CT in February also showed findings suspicious for disease progression. This did not appear to be overtly symptomatic, but with evidence of disease progression, she was recommended to begin second line treatment with daratumumab/dexamethasone. Ms Clark began Daratumumab/dexamethasone on March 21, 2020. She reports significant bone/joint pain and persistent bowel issues . She states the diarrhea was more than normal for her after her last treatment. The abdominal cramping has not worsened either but has not improved. She is waiting to hear from Dr Jimenes's office regarding arranging an endoscope and colonoscopy. She did have a left sided port a cath placed per Dr Soriano since her last visit. It is healing well. She continues with Darzalex. Plan: 1. Proceed with week 5/8 daratumumab with same premeds. 2. She will take dexamethasone today and tomorrow as scheduled. 3. Labs from April 17, 2020 were reviewed in detail and discussed with Ms. Clark and a copy was given to her. WBC 5.4 hemoglobin 11.6, platelets 225,000 ANC is 3600. Creatinine is 0.7, potassium 3.1 LFTs are normal. 4. We will have her take potassium 20 mEq ONE TABLET daily if it does not worsen her diarrhea. She stated she has only been taking a 1/2 tablet daily. 5. She is still awaiting word from Dr. Hamm's office as far as endoscopy and colonoscopy. She states she has a strong family history of colon cancer in her father and brother. She states she has had polyps in the past and is just behind on getting her colonoscopy done. 6. Ms. Clark was advised to call us if she has the pain as she had last weekend prior to her next visit. 7. We will plan for her to return in 1 week for week 68 daratumumab. I have asked for a CBC and CMP at that time. She may have her labs drawn via home health with port access and maintenance prior to her appointments. 8. Ms. Clark was instructed to contact us in the interim should questions or problems arise. Signed By: Sue Patel <<Signature on File>>
[2020-04-25] MEDS: sodium chloride 0.9% 250 ML 75 ML IV (11:15)
[2020-04-25] MEDS: acetaminophen 325 mg Tablet 650 MG PO (11:15)
[2020-04-25] MEDS: dexamethasone 20 MG in sodium chloride 0.9% 50 ML 188 MG IV (11:15)
--- NOTE | 2020-04-29 22:44 | ONC FU_ITS ---
[facility] Patient Note Patient: Valentin Clark Unit #: [id number]: [id number] Dictated By: Sue PatelDate of Visit: Apr 25, 2020 Onc MED Follow-Up/Prog Note Chief Complaint: Multiple myeloma. 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 In March 2018 she had bumped her head at work and in the process of that she became aware of a small lump, though it was actually in a slightly different area. She then noticed that the lump was getting larger. Evaluation with head MRI on 06/07/2018 showed evidence of a right parietal occipital extra-axial neoplasm, felt to be most likely meningeal in origin. It was noted to exert mass effect on the right parietal and occipital lobes, but without associated midline shift or white matter parenchymal edema. The lesion was noted to invade through the calvarium and into the subcutaneous parietal occipital scalp soft tissues. The mass measured 5.7 x 3.5 x 6 cm. 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 The area of occlusion was noted to extend over approximately 4.3 cm. She was seen by Dr. Landry and subsequently referred for neurosurgery evaluation at [facility]. Initially they had considered possible surgical resection. Her further evaluation there apparently included laboratory findings which were suspicious for myeloma, and it was recommended that she have treatment with radiation. She was seen here for further management on 07/14/2018. She then returned to Dr. Landry, and on 07/20/2018 she underwent open biopsy/resection of the extracranial extent of the mass. 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 Her further evaluation included protein electrophoresis which showed an IgG lambda monoclonal protein in the serum quantitating at 0.48 g/dL. The serum free light chain assay showed elevated lambda light chain at 374.65 mg/L with decreased kappa/lambda ratio at 0.06. The 24-hour urine protein electrophoresis showed no monoclonal protein. There were no other areas of lytic bone involvement noted on her skeletal survey. Bone marrow aspiration/biopsy on 07/30/2018 showed a monotypic plasma cell population, but it comprised only 2% of the total cellularity. A FISH panel for myeloma was unrevealing, and the standard chromosome analysis was normal. She was referred to Dr. Kaur, and she began radiation to the lesion on 07/30/2018. She completed treatment on 09/02/2018 to a total dose of 5,000 cGy. She had evaluation with CT pulmonary angiogram on 09/14/2018. It showed moderate bilateral pulmonary embolic burden. She began on anticoagulation with apixaban. During her subsequent follow-up she continued to have an open wound at the site of the plasmacytoma in the parietal-occipital scalp region. As of her follow-up visit on 10/19/2018 her M protein was stable 0.37 g/dL. In the absence of any evidence of symptomatic myeloma, she had otherwise just continued on observation/expectant management. However, due to her persistent scalp wound she had a repeat brain MRI on 01/11/2019. It showed evidence of residual neoplastic process at the resection site. There was associated dural involvement but with improved signal characteristics and decreased enhancement compared to the study from September 2018. She was seen for a follow-up visit on 01/20/2019. In view of the MRI findings, she had further evaluation with PET/CT on 02/03/2019. It showed increase in size and expansile hypermetabolic lesion within the left ilium with extension of hypermetabolic tumor into the adjacent left iliac muscle. There was a new hypermetabolic lytic process within the right S1/S2 region. A large lytic mass within the posterior calvarium did not appear to have active hypermetabolism. Also noted, though, was a hypermetabolic lesion within the medullary canal of the distal left femoral diametaphysis and an additional hypermetabolic focus in the anterior cortex of the distal right femur concerning for additional areas of myeloma. In the setting of obvious progression of her myeloma, she was recommended to begin a trial of therapy with Velcade/Revlimid/dexamethasone. Her other medical illnesses include hypertension and degenerative arthritis/degenerative disease of the spine. She has associated cervical and lumbar spinal stenosis. She has a history of endometriosis, and she has anxiety/depression. She is a nonsmoker. INTERIM HISTORY: She began cycle 1 of VRd on 02/23/2019. At that time she also received an infusion of IV Zometa for the lytic bone involvement. At that time, there was a slight increase in her baseline creatinine level to 1.2 mg/dL, and it was opted to reduce her Revlimid dosage because of that. She experienced significant toxicity following her day 1 treatment, mainly having become listless and out of it over the next 4-5 days. She also lost her appetite. Her follow-up lab studies showed a drop in her calcium from baseline 10.3 mg/dL to 6.5 mg/dL with albumin 3.5 g/dL. With that finding, Dr Rodriguez did opt to hold her further Velcade, but she continued Revlimid and dexamethasone. As of 03/09/2019 she restarted treatment with Velcade at 1.3 mg/m??? weekly with Revlimid reduced to 15 mg daily on a 21/28 day schedule and the dexamethasone dosage reduced to 20 mg weekly. As of her day 15 visit, she was tolerating the treatment well. At that time she received the full dosage of Velcade, and she continued Revlimid 15 mg daily for 7 more days. She had subsequently developed diarrhea, and at her followup visit on 04/07/2019 her treatment was put on hold. She eventually continued with cycle 3 on 05/05/2019 with the Revlimid dosage further reduced to 10 mg daily on a 21/28 day schedule and with the Velcade and dexamethasone dosed weekly. Her repeat SPEP at that time showed residual M protein quantitating at 0.3 g/dL. The free light chain assay showed kappa light chain 100 mg/L, lambda light chain 122 mg/L, and kappa/lambda ratio 0.82. Her treatment was put on hold again at day 8 due to worsening neuropathy. She subsequently was able to continue the Revlimid and dexamethasone, but the Velcade remained on hold. Her repeat protein electrophoresis on 06/09/2019 showed stable M protein at 0.3 g/dL. The serum free light chain assay showed normal kappa/lambda ratio at 0.84. She was seen for a follow-up visit on 06/21/2019. At that point she appeared stable clinically. Her blood counts were adequate, and she continued with her 4th cycle of treatment. Her repeat protein electrophoresis on 07/13/2019 showed residual M protein quantitating at 0.2 g/dL. The free light chain assay showed elevated kappa light chain at 31.0 mg/L and elevated lambda light chain at 33.0 mg/L with normal kappa/lambda ratio at 0.94. Her 24-hour urine protein electrophoresis showed no detectable monoclonal protein. She was seen for a follow-up visit on 07/19/2019. At that point she complained of increased fatigue and excessive somnolence, and it was opted to put her treatment on hold. A subsequent restaging PET/CT showed no FDG avid sites of involvement. Her repeat head MRI on 08/10/2019 showed no evidence of recurrent or progressive disease. With those findings, Dr Rodriguez opted to transition her treatment to maintenance Revlimid at 5 mg daily, which she started following her visit on 08/17/2019. Her further laboratory studies on 09/22/2019 also showed a low B12 level at 189 pg/mL, and she subsequently started B12 replacement therapy. A sleep study in October 2019 showed moderate obstructive sleep apnea. At her follow-up visit on 11/28/2019 she was still mildly anemic, and transferrin saturation was still low at 17% despite being on oral iron replacement. As such, she was then given parenteral iron replacement with infusions of Injectafer on 11/28/2019 and on 12/05/2019. With the 11/28 visit she also was given denosumab 120 mg by subcutaneous injection for the lytic bone involvement. On 12/06/2019 she was admitted to the hospital with symptomatic hypocalcemia, serum calcium 5.9 mg/dL with albumin 2.9 g/dL. Renal function was stable with creatinine 1.0 mg/dL, but her potassium also was low at 3.2 mmol/L. She was given IV calcium and potassium replacement. She then continued further IV replacement as an outpatient. Despite that she was readmitted to the hospital with hypocalcemia on 12/15/2019. She was discharged home on 12/23/2019. Her evaluation included CT pulmonary angiogram which showed no evidence of pulmonary embolism. There was evidence of cardiomegaly, a small pericardial effusion, and small bilateral pleural effusions. Echocardiogram showed small, hemodynamically insignificant pericardial effusion and normal left ventricular function. She then returned here on 12/27/2019 and she has since then continued IV fluid and electrolyte replacement, daily for the first week and then on Mondays, Wednesdays, and Fridays. Despite that, she continued to feel weak and shaky, and she had ongoing complaints of nausea and anorexia. She continued to require IV fluid and electrolyte replacement but she did show gradual recovery. Her further treatment remained on hold. Repeat protein electrophoresis on 01/16/2020 showed stable M protein at 0.4 g/dL. Serum free light chain assay showed elevated free lambda light chain at 254 mg/L with decreased kappa/lambda ratio at 0.16. There was no monoclonal protein identified in the 24-hour urine protein electrophoresis. Restaging PET/CT on 02/24/2020 showed findings concerning for disease progression with new areas of marrow hypermetabolism within the right proximal humerus and within the bilateral distal femoral diametaphysis. The existing areas of involvement within the left ilium and sacrum showed further decrease in FDG uptake. With those findings, Dr Rodriguez had recommended that she proceed to second line treatment with daratumumab/dexamethasone. She was scheduled to come in last week for her initial infusion of daratumumab, but the treatment was deferred when she developed low-grade fever and other acute symptoms. Ms. Clark is here today for follow-up. She began daratumumab dexamethasone on March 21, 2020. Her Darzalex was given in a split dosing over 2 days. She did have infusion reaction with day 1 that was treated with steroids Benadryl DuoNeb and she recovered well. She was able to complete day 2 with no effects. She is here today for follow-up and due for week 6/8 daratumumab. She states overall she is doing about the same. She has no new concerns. She continues to have abdominal cramps and diarrhea. She is noted to have a 10 pound weight loss over the last week. However her weight on April 11 with 193.2, on April 18 it was 201.2 and today is 191.6. She states she did have some more diarrhea. She states it is just no formed stool at all just watery. She states she has not noticed any blood in the diarrhea at this time. She states she still has a poor appetite. She is eating because I know I have to . She denies any pain. She is had no fever or chills. She denies any urinary symptoms. She denies any cough or shortness of breath. She denies any orthopnea. She denies palpitations or chest pain. Her ECOG is 2. Past Medical History: Anxiety/depression Cervical stenosis Degenerative arthritis Degenerative disease of the spine Depression Endometriosis Hypertension Lumbar stenosis Past Surgical History: Bilateral cataract excisions Cholecystectomy/gastric stapling Removal of ovarian cyst x 2 Tonsillectomy Left subclavian venous access device???Dr. [facility] [place] in 2019 Allergies: BusPIRone HCl, Codeine and Related, Levaquin, and Morphine Derivatives. Medications: Acetaminophen 2 Tablet (of 500 mg) Oral PRN Calcitriol 1 Capsule (of .25 mcg) Oral b.i.d. calicum 600 Tabminder (of 600 mg) Tablet Sublingual daily Cyclobenzaprine HCl 1 Tablet (of 5 mg) Oral PRN Dexamethasone (4 mg) Tablet Oral Take as Directed Eliquis 1 Tablet (of 2.5 mg) Oral b.i.d. FLUoxetine HCl 1 Capsule (of 20 mg) Oral daily Furosemide 1 - 2 Tablet (of 40 mg) Oral daily PRN GoodSense Stimulant Laxative 2 Tablet (of 8.6-50 mg) Oral t.i.d. PRN Loratadine 1 Tablet (of 10 mg) Oral daily PRN LORazepam 1 Tablet (of 0.5 mg) Oral at bedtime Metoprolol Tartrate 0.5 Tablet (of 25 mg) Oral b.i.d. Ondansetron HCl 1 - 2 Tablet (of 4 mg) Oral PRN Pantoprazole Sodium 1 Tablet (of 40 mg) Tablet, enteric coated Oral b.i.d. Potassium Chloride ER 1 Tablet (of 20 meq) Tablet, controlled release Oral daily Probiotic Acidophilus 1 Capsule Tablet Oral b.i.d. traMADol HCl 1 Tablet (of 50 mg) Oral t.i.d. PRN Ventolin HFA Aerosol, solution Inhalation Vitamin D3 2 Capsule (of 2000 Units) Oral daily Family History: Ms. Clark's mother at age 84: emphysema, and congestive heart failure. Ms. Clark's father at age 53: heart disease, and myocardial infarction. Ms. Clark has 2 brothers: 1 alive, 1 . Ms. Clark's first brother's colon cancer, and type ii diabetes. Another brother's colon cancer. She has 2 sisters: 2 alive. Ms. Clark's first sister's herat disease, and type ii diabetes. Father of heart attack age 51. Mother with emphysema at age 78. She also had heart disease and diabetes. A sister has diabetes and heart disease. A brother has diabetes and he has been treated for colon cancer. A maternal uncle also had colon cancer, and a maternal aunt had breast cancer. 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 Ms. Clark has never smoked. She drinks occasionally. She is a nonsmoker. She has had just rare alcohol use. Review Of Symptoms: Constitutional Denies fevers, chills, night sweats, excessive fatigue. documented 10 pound weight loss from last visit 1 week ago. Appetite is poor. Only eating pasta because that is the only thing that appeals to her. Allergic/Immunologic No reactions. Eyes Denies significant visual changes. No diplopia. No amaurosis. ENMT Denies changes in hearing, sore throat, mouth sores, difficulty or changes in swallowing ability, and/or sinus drainage. Hematologic/Lymphatic Denies easy bruising or bleeding. The patient denies any tender or palpable lymph nodes. Breasts Respiratory Denies dyspnea on exertion, chest pain, cough or hemoptysis. Denies orthopnea. Cardiovascular Denies anginal chest pain, palpitations or orthopnea. Gastrointestinal Denies nausea, vomiting, GI bleeding, or constipation. She states she had diarrhea 10-15 times on Thursday . No form to the stools at all . Diarrhea better today but still unformed, watery stool. Genitourinary (F) No hematuria, hesitancy, incontinence, vaginal bleeding, discharge or other problems with urination. Musculoskeletal Denies joint pain, swelling or redness. No decreased range of motion. Integumentary Denies chronic rashes, inflammation, ulcerations or skin changes. Neurologic Denies headache, blurred vision, and no areas of focal weakness or numbness. Normal gait. No sensory problems. Psychiatric Denies insomnia, depression, olivia or mood swings. Vital Signs: Performed on Apr 25, 2020 10:48 Height - 63.50 in Weight - 191.6 lbs (LOW) BSA - 1.91 sq.m BMI - 33.41 (HIGH) Temperature - 96.5 F (LOW) Pulse - 56 /min (LOW) Respiration - 17 /min BP - 121/76 mm(hg) O2 Sat - 98 % Pain - 0,1 - No physically strenuous activity, but ambulatory and able to carry out light or sedentary work (e.g. office work, light house work). (ECOG) Physical Examination: Constitutional Alert, oriented, no acute distress. Skin pink, warm and dry. Head Normocephalic; atraumatic. Posterior scalp wound is healing well without exudate or redness. It remains open-covered with dressing-new protrusion (slight at lower edge of wound)- it is bone . Eyes Conjunctivae and sclerae are clear and without icterus. Pupils are reactive and equal. Neck Supple without masses or thyromegaly. No jugular venous distension. Hematologic/Lymphatic No petechiae or purpura. No tender or palpable lymph nodes in the cervical or supraclavicular areas. Respiratory Lungs are clear to auscultation without rhonchi or wheezing. Cardiovascular Regular rate and rhythm of heart without murmurs,clicks, gallops or rubs. Chest left sided port-unremarkable. Abdomen Non-tender, non-distended, no masses, ascites. .Good bowel sounds noted in all quads. No guarding or rebound tenderness. No pulsatile masses. Back/Spine Non-tender to palpation. Extremities No visible deformities, no cyanosis, clubbing or edema. Musculoskeletal No tenderness or swelling. Integumentary No rashes or lesions. Neurologic No sensory or motor deficits, normal cerebellar function, normal gait. Psychiatric Alert and oriented times three. Coherent speech. Verbalizes understanding of our discussions today. Laboratory:Test performed on Apr 24, 2020 09:45 Glucose 95 mg/dL BUN 12 mg/dL Creatinine 0.8 mg/dL Cr Clearance (Est) 96.67 mL/min Sodium 139 mmol/L Potassium 3.7 mmol/L Chloride 103 mmol/L CO2 24 mmol/L Calcium 10.3 mg/dL Protein, Total 6.8 g/dL Albumin 3.9 g/dL Globulin 2.9 g/dL Bilirubin, Total 0.4 mg/dL Alkaline Phosphatase 90 IU/L AST (SGOT) 21 IU/L ALT (SGPT) 22 IU/L WBC 5.7 10^9/L RBC 4.56 10^12/L HGB 13.2 g/dL HCT 42.1 % MCV 92.3 fl MCH 28.9 pg MCHC 31.4 g/dL RDW 16.2 % Platelet Count 216 10^9/L MPV 12.0 fL Neutrophils (Gran) 3.9 10^9/L Lymphocytes 1.2 10^9/L Monocytes 0.5 10^9/L Eosinophils 0.0 10^9/L Basophils 0.1 10^9/L Manual Bands 20.9 % Manual Lymphocytes 20.9 % Manual Monocytes 8.6 % Manual Eosinophils 0.5 % Manual Basophils 1.2 % Test performed on April 10, 2020 14:05 Anion Gap 13.8 eGFR 40.6 mL/min Neutrophil % 72.3 % Lymphocyte % 17.0 % Monocyte % 9.6 % Eosinophil % 0.5 % Basophils % 0.3 % Test performed on Mar 13, 2020 08:05 Magnesium 1.8 mg/dL ESR (Sed Rate) 17 mm/hr IgG 910 mg/dL IgA 97 mg/dL IgM 22 mg/dL Test performed on Feb 20, 2020 09:15 Phosphorus 2.3 mg/dL Test performed on Jan 16, 2020 14:00 NT proBNP 1439 pg/mL Homocysteine 7.04 umol/L LDH (Total) 80 U/L Methylmalonic Acid 79 nmol/L Vitamin B12 1566 pg/mL [place] Free Light Chains 40.4 mg/L [place]/Lambda Free Ratio 0.16 Test performed on Jan 02, 2020 09:16 Vitamin D (25-Hydroxy), Total 22 ng/mL Test performed on Nov 21, 2019 08:35 Ferritin 16 ng/mL % Iron Saturation 17.2 % Iron, Total 53 mcg/dL TIBC 308 mcg/dL NRBCs 0.0 /100 WBC Impression: 1. 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 She underwent resection/open biopsy of the extracranial portion of the mass on 07/20/2018. 2. She then underwent radiation, completed on 09/02/2018 to a total dose of 5000 cGy. 3. She has persistent open wound at the biopsy site. 4. She had associated IgG lambda monoclonal protein in the serum and 2% monoclonal plasma cells in the bone marrow, consistent with underlying myeloma. Initially it appeared to otherwise not be symptomatic. 5. She was found to have pulmonary emboli by CT pulmonary angiogram on 09/14/2018. She began anticoagulation with apixaban. Her other medical illnesses include: 6. Degenerative arthritis and degenerative disease of the spine with associated cervical and lumbar spinal stenosis. 7. Hypertension. 8. Endometriosis. 9. Anxiety/depression. During subsequent followup she had increasing pain in the left hip/buttock area. Her repeat protein electrophoresis studies showed only a slight increase in her M protein, but her repeat PET/CT on 02/03/2019 showed significant progression of lytic bone involvement in the left ilium. There was also possible involvement in the distal right femur. The area of lytic involvement in the calvarium was not metabolically active. On 02/23/2019 she began cycle 1 of Velcade/Revlimid/dexamethasone. She also was given an infusion of Zometa for the lytic bone involvement. 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 Her Velcade was put on hold. She stopped the Revlimid and dexamethasone as of 03/02/2019. At that point she was still having significant pain associated with the lytic bone involvement in the left ileum. During subsequent follow-up, the hypocalcemia improved. As of 03/09/2019 she was able to restart treatment with dose reductions in the Revlimid and dexamethasone. She had remained mildly anemic, but that appeared to be due to iron deficiency. As of her cycle 2 day 15 visit, she appeared to be doing well, and she continued to her treatment as scheduled. Subsequent to that visit, she developed severe diarrhea, and her treatment was put on hold. She continued with cycle 3 on 05/05/2019. She was given a further reduction in the Revlimid dosage to 10 mg daily on a 21/28 day schedule with the Velcade and dexamethasone dosed weekly. Her treatment was put on hold at day 8 due to worsening neuropathy. She subsequently was able to continue treatment with Revlimid/dexamethasone, but the Velcade remained on hold. She then continued with cycle 4 on 06/21/2019. As of her follow-up visit on 07/19/2019 her treatment was put on hold due to multiple complaints, the most significant being increased fatigue and excessive somnolence. A subsequent restaging PET/CT showed no active sites of involvement. She continued, though, to have severe fatigue/somnolence despite adjustments in her medication regimen. She also continued to have significant musculoskeletal pain, and she had a persistent open wound in the area of the vertex of her scalp. Her repeat head MRI on 08/10/2019 showed no evidence of recurrent or progressive disease. With those findings, her treatment was transitioned to maintenance Revlimid at 5 mg daily, which she started following her visit on 08/17/2019. As of her followup visit on 11/28/2019 she appeared to be tolerating the maintenance Revlimid with acceptable toxicity, and there had been no obvious progression of the myeloma. During that time she was found to have B12 deficiency, and she had been showing some improvement with B12 replacement. However, at that point she still had mild anemia, and her transferrin saturation and ferritin levels were consistent with iron deficiency despite the fact that she had been on oral iron supplementation. She was given parenteral iron replacement with 2 infusions of Injectafer. She also was given denosumab 120 mg by subcutaneous injection for the lytic bone involvement. On 12/06/2019 she was admitted to the hospital with symptomatic hypocalcemia. She also had hypokalemia and hyperphosphatemia. It was uncertain to what extent those abnormalities were due to the Injectafer, to the denosumab, or both. However, she continued to have persistent symptomatic hypocalcemia and hyperphosphatemia despite having both IV or oral replacement, and she required hospital admission again on 12/15/2019. During this time there was a significant in her performance status. She also developed shortness of breath and hypoxia. A specific cause for that was not determined. Following her hospitalization she continued outpatient IV fluid and electrolyte replacement along with oral calcium and vitamin D supplements. However, she did show gradual recovery with resolution of the hypocalcemia/hyperphosphatemia and she also had gradual improvement in her performance status. Her protein electrophoresis studies in January did show evidence of progression of her myeloma with increasing free lambda light chain and her restaging PET/CT in February also showed findings suspicious for disease progression. This did not appear to be overtly symptomatic, but with evidence of disease progression, she was recommended to begin second line treatment with daratumumab/dexamethasone. Ms Clark began Daratumumab/dexamethasone on March 21, 2020. She reports significant bone/joint pain and persistent bowel issues . She states the diarrhea was more than normal for her after her last treatment. The abdominal cramping has not worsened either but has not improved. She is waiting to hear from Dr Jimenes's office regarding arranging an endoscope and colonoscopy. She did have a left sided port a cath placed per Dr Soriano on 04-12-2020. It is healing well. She continues with Darzalex. Plan: 1. Proceed with week 6/8 daratumumab with same premeds. 2. She will take dexamethasone today and tomorrow as scheduled. 3. Labs from April 24, 2020 were reviewed in detail and discussed with Ms. Clark and a copy was given to her. WBC 5.7, hemoglobin 13.2, platelets 216,000, ANC is 3900 potassium 3.7 creatinine 0.8 LFTs are normal. 4. She did try to increase her potassium to 20 mEq ONE TABLET daily, but she thought it may have worsen her diarrhea. She stated she has only been taking a 1/2 tablet daily over the last 2-3 days. Her potassium from 04-24-2020 was normal at 3.7. 5. She is still awaiting word from Dr. Hamm's office as far as endoscopy and colonoscopy. She states she has a strong family history of colon cancer in her father and brother. She states she has had polyps in the past and is just behind on getting her colonoscopy done. We did call Dr Jimenes's office today to inform them of her labs and that we felt she should proceed with the procedure given her persistent symptoms and weight loss. 6. Ms. Clark was advised to call us if she has the pain as she had last weekend prior to her next visit. 7. We will plan for her to return in 1 week for week 7/8 daratumumab. I have asked for a CBC and CMP at that time. 8. Ms. Clark was instructed to contact us in the interim should questions or problems arise. Signed By: Sue Patel-, AOSMOOTH Rodriguez MD <<Signature on File>>
[2020-05-01 12:18] LABS: Hematocrit 41.4 % (37.0-47.0); Mean Corpuscular HGB Conc 31.4 g/dL (30.0-36.0); Mean Corpuscular Hemoglobin 29.3 pg (28.0-34.0); Mean Corpuscular Volume 93.5 fL (81-99); Mean Platelet Volume 11.9 fL (7.4-10.4); Platelet Count 234 10^3/cmm (130-400); Red Blood Count 4.43 10^6/uL (4.1-5.3); Red Cell Distribution Width 15.6 % (12.1-15.1); White Blood Count 6.4 10^3/uL (4.0-10.0)
[2020-05-01 12:48] LABS: Alanine Aminotransferase 23 U/L (0-33); Albumin Level 3.8 g/dL (3.5-5.2); Alkaline Phosphatase 74 IU/L (35-105); Anion Gap 14.4 (5-19); Aspartate Amino Transferase 22 U/L (0-32); Blood Urea Nitrogen 13 mg/dL (8-23); Carbon Dioxide 26 mmol/L (22-29); Chloride 104 mmol/L (98-107); Globulin 2.5 g/dL (1.3-4.6); Glomerular Filtration Rate 62.1 mL/min (90-130); Glucose 108 mg/dL (65-115); Osmolality Calculated 287 mOsm/kg (285-295); Potassium 4.4 mmol/L (3.5-5.1); Sodium 140 mmol/L (136-145); Total Bilirubin 0.3 mg/dL (0.15-1.2); Total Protein 6.3 g/dL (6.6-8.7)
[2020-05-01 13:17] LABS: Lymphocytes 27 %; Monocytes Absolute 0.7 10^3/cmm (0.1-0.6); Platelet Estimate Normal (Normal); Segmented Neutrophils 62 %; Total Cells Counted 100 (0-100)
[2020-05-02] MEDS: acetaminophen 325 mg Tablet 650 MG PO (09:22)
[2020-05-02] MEDS: dexamethasone 20 MG in sodium chloride 0.9% 50 ML 188 MG IV (09:24)
[2020-05-02] MEDS: sodium chloride 0.9% 250 ML 999 ML IV (09:35)
[2020-05-02 10:25] LABS: Magnesium 1.9 mg/dL (1.7-2.3)
--- NOTE | 2020-05-06 11:41 | ONC FU_ITS ---
Dr. Rodriguez Patient Follow-Up Note Patient: Valentin Clark Unit #: [id number]: [id number] Dicatated By: Ruiz Rodriguez M.D.Date of Visit:May 02, 2020 Onc Med Follow-up/Prog Note Chief Complaint: Mulitple myeloma. 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 In March 2018 she had bumped her head at work and in the process of that she became aware of a small lump, though it was actually in a slightly different area. She then noticed that the lump was getting larger. Evaluation with head MRI on 06/07/2018 showed evidence of a right parietal occipital extra-axial neoplasm, felt to be most likely meningeal in origin. It was noted to exert mass effect on the right parietal and occipital lobes, but without associated midline shift or white matter parenchymal edema. The lesion was noted to invade through the calvarium and into the subcutaneous parietal occipital scalp soft tissues. The mass measured 5.7 x 3.5 x 6 cm. 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 The area of occlusion was noted to extend over approximately 4.3 cm. She was seen by Dr. Landry and subsequently referred for neurosurgery evaluation at [facility]. Initially they had considered possible surgical resection. Her further evaluation there apparently included laboratory findings which were suspicious for myeloma, and it was recommended that she have treatment with radiation. She was seen here for further management on 07/14/2018. She then returned to Dr. Landry, and on 07/20/2018 she underwent open biopsy/resection of the extracranial extent of the mass. 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 Her further evaluation included protein electrophoresis which showed an IgG lambda monoclonal protein in the serum quantitating at 0.48 g/dL. The serum free light chain assay showed elevated lambda light chain at 374.65 mg/L with decreased kappa/lambda ratio at 0.06. The 24-hour urine protein electrophoresis showed no monoclonal protein. There were no other areas of lytic bone involvement noted on her skeletal survey. Bone marrow aspiration/biopsy on 07/30/2018 showed a monotypic plasma cell population, but it comprised only 2% of the total cellularity. A FISH panel for myeloma was unrevealing, and the standard chromosome analysis was normal. She was referred to Dr. Kaur, and she began radiation to the lesion on 07/30/2018. She completed treatment on 09/02/2018 to a total dose of 5,000 cGy. She had evaluation with CT pulmonary angiogram on 09/14/2018. It showed moderate bilateral pulmonary embolic burden. She began on anticoagulation with apixaban. During her subsequent follow-up she continued to have an open wound at the site of the plasmacytoma in the parietal-occipital scalp region. As of her follow-up visit on 10/19/2018 her M protein was stable 0.37 g/dL. In the absence of any evidence of symptomatic myeloma, she had otherwise just continued on observation/expectant management. However, due to her persistent scalp wound she had a repeat brain MRI on 01/11/2019. It showed evidence of residual neoplastic process at the resection site. There was associated dural involvement but with improved signal characteristics and decreased enhancement compared to the study from September 2018. She was seen for a follow-up visit on 01/20/2019. In view of the MRI findings, she had further evaluation with PET/CT on 02/03/2019. It showed increase in size and expansile hypermetabolic lesion within the left ilium with extension of hypermetabolic tumor into the adjacent left iliac muscle. There was a new hypermetabolic lytic process within the right S1/S2 region. A large lytic mass within the posterior calvarium did not appear to have active hypermetabolism. Also noted, though, was a hypermetabolic lesion within the medullary canal of the distal left femoral diametaphysis and an additional hypermetabolic focus in the anterior cortex of the distal right femur concerning for additional areas of myeloma. In the setting of obvious progression of her myeloma, she was recommended to begin a trial of therapy with Velcade/Revlimid/dexamethasone. Her other medical illnesses include hypertension and degenerative arthritis/degenerative disease of the spine. She has associated cervical and lumbar spinal stenosis. She has a history of endometriosis, and she has anxiety/depression. She is a nonsmoker. INTERIM HISTORY: She began cycle 1 of VRd on 02/23/2019. At that time she also received an infusion of IV Zometa for the lytic bone involvement. At that time, there was a slight increase in her baseline creatinine level to 1.2 mg/dL, and did opt to reduce her Revlimid dosage because of that. She experienced significant toxicity following her day 1 treatment, mainly having become listless and out of it over the next 4-5 days. She also lost her appetite. Her follow-up lab studies showed a drop in her calcium from baseline 10.3 mg/dL to 6.5 mg/dL with albumin 3.5 g/dL. With that finding, I did opt to hold her further Velcade, but she continued Revlimid and dexamethasone. As of 03/09/2019 she restarted treatment with Velcade at 1.3 mg/m??? weekly with Revlimid reduced to 15 mg daily on a 21/28 day schedule and the dexamethasone dosage reduced to 20 mg weekly. As of her day 15 visit, she was tolerating the treatment well. At that time she received the full dosage of Velcade, and she continued Revlimid 15 mg daily for 7 more days. She had subsequently developed diarrhea, and at her followup visit on 04/07/2019 her treatment was put on hold. She eventually continued with cycle 3 on 05/05/2019 with the Revlimid dosage further reduced to 10 mg daily on a 21/28 day schedule and with the Velcade and dexamethasone dosed weekly. Her repeat SPEP at that time showed residual M protein quantitating at 0.3 g/dL. The free light chain assay showed kappa light chain 100 mg/L, lambda light chain 122 mg/L, and kappa/lambda ratio 0.82. Her treatment was put on hold again at day 8 due to worsening neuropathy. She subsequently was able to continue the Revlimid and dexamethasone, but the Velcade remained on hold. Her repeat protein electrophoresis on 06/09/2019 showed stable M protein at 0.3 g/dL. The serum free light chain assay showed normal kappa/lambda ratio at 0.84. She was seen for a follow-up visit on 06/21/2019. At that point she appeared stable clinically. Her blood counts were adequate, and she continued with her 4th cycle of treatment. Her repeat protein electrophoresis on 07/13/2019 showed residual M protein quantitating at 0.2 g/dL. The free light chain assay showed elevated kappa light chain at 31.0 mg/L and elevated lambda light chain at 33.0 mg/L with normal kappa/lambda ratio at 0.94. Her 24-hour urine protein electrophoresis showed no detectable monoclonal protein. She was seen for a follow-up visit on 07/19/2019. At that point she complained of increased fatigue and excessive somnolence, and I did opt to put her treatment on hold. A subsequent restaging PET/CT showed no FDG avid sites of involvement. Her repeat head MRI on 08/10/2019 showed no evidence of recurrent or progressive disease. With those findings, I opted to transition her treatment to maintenance Revlimid at 5 mg daily, which she started following her visit on 08/17/2019. Her further laboratory studies on 09/22/2019 also showed a low B12 level at 189 pg/mL, and she subsequently started B12 replacement therapy. A sleep study in October 2019 showed moderate obstructive sleep apnea. At her follow-up visit on 11/28/2019 she was still mildly anemic, and transferrin saturation was still low at 17% despite being on oral iron replacement. As such, she was then given parenteral iron replacement with infusions of Injectafer on 11/28/2019 and on 12/05/2019. With the 11/28 visit she also was given denosumab 120 mg by subcutaneous injection for the lytic bone involvement. On 12/06/2019 she was admitted to the hospital with symptomatic hypocalcemia, serum calcium 5.9 mg/dL with albumin 2.9 g/dL. Renal function was stable with creatinine 1.0 mg/dL, but her potassium also was low at 3.2 mmol/L. She was given IV calcium and potassium replacement. She then continued further IV replacement as an outpatient. Despite that she was readmitted to the hospital with hypocalcemia on 12/15/2019. She was discharged home on 12/23/2019. Her evaluation included CT pulmonary angiogram which showed no evidence of pulmonary embolism. There was evidence of cardiomegaly, a small pericardial effusion, and small bilateral pleural effusions. Echocardiogram showed small, hemodynamically insignificant pericardial effusion and normal left ventricular function. She then returned here on 12/27/2019 and she has since then continued IV fluid and electrolyte replacement, daily for the first week and then on Mondays, Wednesdays, and Fridays. Despite that, she continued to feel weak and shaky, and she had ongoing complaints of nausea and anorexia. She continued to require IV fluid and electrolyte replacement but she did show gradual recovery. Her further treatment remained on hold. Repeat protein electrophoresis on 01/16/2020 showed stable M protein at 0.4 g/dL. The serum free light chain assay showed elevated free lambda light chain at 254 mg/L with decreased kappa/lambda ratio at 0.16. There was no monoclonal protein identified in the 24-hour urine protein electrophoresis. Restaging PET/CT on 02/24/2020 showed findings concerning for disease progression with new areas of marrow hypermetabolism within the right proximal humerus and within the bilateral distal femoral diametaphysis. The existing areas of involvement within the left ilium and sacrum showed further decrease in FDG uptake. With those findings, I had recommended that she proceed to second line treatment with daratumumab/dexamethasone. She was scheduled to come in last week for her initial infusion of daratumumab, but the treatment was deferred when she developed low-grade fever and other acute symptoms. She eventually was able to begin her initial infusion of daratumumab on 03/21/2020. Her repeat free light chain assay prior to that showed further increase in the lambda light chain to 537 mg/L with kappa/lambda ratio 0.06. She tolerated the daratumumab with no adverse effects, and she then continued treatment weekly. As of 04/25/2020 she had completed her 6th infusion. She is seen for a followup visit. She has been feeling a little bit better generally. She has been somewhat active and able to do a little bit of housework. ECOG score is 2. She says she is never hungry. She has been losing weight. She has no fever or night sweats. She is not recently had vomiting, she has been burping a lot. She had 4 episodes of diarrhea this past week, but recently it has let up. She is scheduled for EGD and colonoscopy tomorrow. She recently had some nonproductive cough. She has not had shortness of breath or chest pain. She has urinary frequency with some incontinence. She is having pain in her ankles, right more than left. She also has low back pain. She has headaches which come and go. She has no focal neurologic symptoms. Medications: Acetaminophen 2 Tablet (of 500 mg) Oral PRN, Bisacodyl 1 Tablet (of 5 mg) Tablet, enteric coated Oral daily, Calcitriol 1 Capsule (of .25 mcg) Oral b.i.d., calicum 600 Tabminder (of 600 mg) Tablet Sublingual daily, Cyclobenzaprine HCl 1 Tablet (of 5 mg) Oral PRN, Dexamethasone (4 mg) Tablet Oral Take as Directed, Eliquis 1 Tablet (of 2.5 mg) Oral b.i.d., FLUoxetine HCl 1 Capsule (of 20 mg) Oral daily, Furosemide 1 - 2 Tablet (of 40 mg) Oral daily PRN, GoodSense Stimulant Laxative 2 Tablet (of 8.6-50 mg) Oral t.i.d. PRN, Loperamide A-D 1 Tablet (of 2 mg) Oral PRN, Loratadine 1 Tablet (of 10 mg) Oral daily PRN, LORazepam 1 Tablet (of 0.5 mg) Oral at bedtime, Metoprolol Tartrate 0.5 Tablet (of 25 mg) Oral b.i.d., Ondansetron HCl 1 - 2 Tablet (of 4 mg) Oral PRN, Pantoprazole Sodium 1 Tablet (of 40 mg) Tablet, enteric coated Oral b.i.d., Potassium Chloride ER 1 Tablet (of 20 meq) Tablet, controlled release Oral daily, Probiotic Acidophilus 1 Capsule Tablet Oral b.i.d., traMADol HCl 1 Tablet (of 50 mg) Oral t.i.d. PRN, Ventolin HFA Aerosol, solution Inhalation, Vitamin D3 2 Capsule (of 2000 Units) Oral daily Allergies: BusPIRone HCl, Codeine and Related, Levaquin, and Morphine Derivatives. Review of Systems: Constitutional - Her energy comes and goes. She is not doing much at home. Her appetite is okay and her weight is down nearly 10 pounds this month. No fever, night sweats, or hot flashes. ECOG score is 2, ENMT - She has seasonal allergies. She has some soreness to the roof of her mouth. No sore throat or difficulty swallowing, Hematologic/Lymphatic - No abnormal bruising or bleeding, Respiratory - No shortness of breath. No cough. No pleuritic pain or hemoptysis, Cardiovascular - No angina pain. No palpitations, Gastrointestinal - No nausea or vomiting. She is continuing to have alot of burping. She has been having frequent diarrhea. No constipation. No blood in the stool or black stools. She is having a colonoscopy tomorrow, Genitourinary (F) - No dysuria or hematuria. She has urinary frequency with urgency. She has occasional incontinence, Musculoskeletal - She is having pain in her ankles and in her lower back, Neurologic - No headache or dizziness. No numbness or tingling. No other focal neurologic symptoms, Psychiatric - No anxiety or depression. No insomnia. Vital Signs: Performed on May 02, 2020 08:40 Height - 63.50 in Weight - 192.4 lbs (HIGH) BSA - 1.91 sq.m BMI - 33.55 (HIGH) Temperature - 97.0 F (LOW) Pulse - 60 /min Respiration - 24 /min BP - 101/73 mm(hg) O2 Sat - 95 % (LOW) Pain - 5 Physical Examination: Constitutional - She looks pretty good generally, Eyes - Sclerae nonicteric. Conjunctivae clear, ENMT - No lesions noted in the oral cavity, Hematologic/Lymphatic - No cervical, clavicular, or axillary adenopathy, Respiratory - Lungs sound clear, Cardiovascular - Heart rhythm is regular. There is a II/ systolic murmur. There is no gallop or rub noted, Abdomen - Soft. Liver and spleen are not enlarged. There is no abdominal mass or ascites noted and there is no inguinal adenopathy, Extremities - No edema, Neurologic - No focal neurologic deficits noted. Lab/Imaging: CBC shows hemoglobin 13.0 g, white blood cell count 6400, and platelet count 234,000. Comprehensive metabolic profile shows normal renal function with BUN 13 and creatinine 0.9 mg/dL. Liver enzymes are normal. Calcium and magnesium levels also are normal. Impression: 1. 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 She underwent resection/open biopsy of the extracranial portion of the mass on 07/20/2018. 2. She then underwent radiation, completed on 09/02/2018 to a total dose of 5000 cGy. 3. She has persistent open wound at the biopsy site. 4. She had associated IgG lambda monoclonal protein in the serum and 2% monoclonal plasma cells in the bone marrow, consistent with underlying myeloma. Initially it appeared to otherwise not be symptomatic. 5. She was found to have pulmonary emboli by CT pulmonary angiogram on 09/14/2018. She began anticoagulation with apixaban. Her other medical illnesses include: 6. Degenerative arthritis and degenerative disease of the spine with associated cervical and lumbar spinal stenosis. 7. Hypertension. 8. Endometriosis. 9. Anxiety/depression. During subsequent followup she had increasing pain in the left hip/buttock area. Her repeat protein electrophoresis studies showed only a slight increase in her M protein, but her repeat PET/CT on 02/03/2019 showed significant progression of lytic bone involvement in the left ilium. There was also possible involvement in the distal right femur. The area of lytic involvement in the calvarium was not metabolically active. On 02/23/2019 she began cycle 1 of Velcade/Revlimid/dexamethasone. She also was given an infusion of Zometa for the lytic bone involvement. Her treatment was complicated by [employer] toxicity and hypocalcemia. Her Velcade was put on hold. She stopped the Revlimid and dexamethasone as of 03/02/2019. At that point she was still having significant pain associated with the lytic bone involvement in the left ileum. During subsequent follow-up, the hypocalcemia improved. As of 03/09/2019 she was able to restart treatment with dose reductions in the Revlimid and dexamethasone. She had remained mildly anemic, but that appeared to be due to iron deficiency. As of her cycle 2 day 15 visit, she appeared to be doing well, and she continued to her treatment as scheduled. Subsequent to that visit, she developed severe diarrhea, and her treatment was put on hold. She continued with cycle 3 on 05/05/2019. She was given a further reduction in the Revlimid dosage to 10 mg daily on a day schedue with the Velcade and dexamethasone dosed weekly. Her treatment was put on hold at day 8 due to worsening neuropathy. She subsequently was able to continue treatment with Revlimid/dexamethasone, but the Velcade remained on hold. She then continued with cycle 4 on 06/21/2019. As of her follow-up visit on 07/19/2019 her treatment was put on hold due to multiple complaints, the most significant being increased fatigue and excessive somnolence. A subsequent restaging PET/CT showed no active sites of involvement. She continued, though, to have severe fatigue/somnolence despite adjustments in her medication regimen. She also continued to have significant musculoskeletal pain, and she had a persistent open wound in the area of the vertex of her scalp. Her repeat head MRI on 08/10/2019 showed no evidence of recurrent or progressive disease. With those findings, her treatment was transitioned to maintenance Revlimid at 5 mg daily, which she started following her visit on 08/17/2019. As of her followup visit on 11/28/2019 she appeared to be tolerating the maintenance Revlimid with acceptable toxicity, and there had been no obvious progression of the myeloma. During that time she was found to have B12 deficiency, and she had been showing some improvement with B12 replacement. However, at that point she still had mild anemia, and her transferrin saturation and ferritin levels were consistent with iron deficiency despite the fact that she had been on oral iron supplementation. She was given parenteral iron replacement with 2 infusions of Injectafer. She also was given denosumab 120 mg by ssubcutaneous injection for the lytic bone involvement. On 12/06/2019 she was admitted to the hospital with symptomatic hypocalcemia. She also had hypokalemia and hypophosphatemia. I was uncertain to what extent those abnormalities were due to the Injectafer, to the denosumab, or both. However, she continued to have persistent symptomatic hypocalemia and hypophosphatemia despite having both IV or oral replacement, and she required hospital admission again on 12/15/2019. During this time there was a significant in her performance status. She also developed shortness of breath and hypoxia. A specific cause for that was not determined. Following her hospitalization she continued outpatient IV fluid and electrolyte replacement along with oral calcium and vitamin D supplements. However, she did show gradual recovery with resolution of the hypocalcemia/hypophosphatemia and she also had gradual improvement in her performance status. Her protein electrophoresis studies in January did show evidence of progression of her myeloma with increasing free lambda light chain and her restaging PET/CT in February also showed findings suspicious for disease progression. She did not appear to be overtly symptomatic, but with evidence of disease progression, she was recommended to begin second line treatment with daratumumab/dexamethasone. Her treatment was delayed after she developed fever and other symptoms, but she eventually did start treatment with daratumumab/dexamethasone on 03/21/2020. Her repeat free light chain assay prior to that had shown further increase in the lambda free light chain to 537 mg/L with kappa/lambda ratio 0.06. She tolerated the initial daratumumab infusion with no adverse effects, and she has been able to continue treatment weekly. She is currently at week 7. She does appear to be showing some gradual improvement in her performance status, though she continues to have significant GI symptoms and she still has nonhealing wound in her scalp. In addition, the second lesion in the calvarium has not yet been addressed. Plan: She will continue with her week 7 daratumumab, which she is taking together with dexamethasone. She returns for treatment in 1 week and for a follow-up visit in 3 weeks. In the meantime, I will confer with Dr. Landry regarding the further management of her calvarial lesion. Signed By: Ruiz Rodriguez M.D. <<Signature on File>>
[2020-05-09] MEDS: dexamethasone 20 MG in sodium chloride 0.9% 50 ML 187 MG IV (09:15)
[2020-05-09] MEDS: acetaminophen 325 mg Tablet 650 MG PO (09:15)
[2020-05-09] MEDS: sodium chloride 0.9% 250 ML 999 ML IV (09:20)
[2020-05-15 16:25] LABS: Basophils % 0.5 %; Eosinophils # 0.1 10^3/uL (0.0-0.8); Eosinophils % 0.7 %; Lymphocytes # 1.2 10^3/uL (0.8-4.8); Lymphocytes % 15.3 %; Mean Corpuscular HGB Conc 31.7 g/dL (30.0-36.0); Mean Corpuscular Volume 94.5 fL (81-99); Mean Platelet Volume 12.2 fL (7.4-10.4); Monocytes # 0.9 10^3/uL (0.2-0.9); Monocytes % 11.1 %; Neutrophils # 5.8 10^3/uL (1.8-7.7); Neutrophils % 72.2 %; Nucleated Red Blood Cells % 0 %; Platelet Count 179 10^3/cmm (130-400); Red Blood Count 4.34 10^6/uL (4.1-5.3); Red Cell Distribution Width 15.2 % (12.1-15.1); White Blood Count 8.1 10^3/uL (4.0-10.0)
[2020-05-15 17:33] LABS: Erythrocyte Sedimentation Rate 13 mm/hr (0-15)
[2020-05-15 17:51] LABS: Alanine Aminotransferase 21 U/L (0-33); Albumin Level 3.4 g/dL (3.5-5.2); Alkaline Phosphatase 66 IU/L (35-105); Anion Gap 16.7 (5-19); Aspartate Amino Transferase 22 U/L (0-32); Blood Urea Nitrogen 21 mg/dL (8-23); Calcium 9.5 mg/dL (8.5-10.5); Carbon Dioxide 23 mmol/L (22-29); Chloride 104 mmol/L (98-107); Globulin 2.3 g/dL (1.3-4.6); Glomerular Filtration Rate 40.6 mL/min (90-130); Glucose 61 mg/dL (65-115); Immunoglobulin IGG 685 mg/dL (700-1600); Magnesium 1.6 mg/dL (1.7-2.3); Osmolality Calculated 285 mOsm/kg (285-295); Potassium 3.7 mmol/L (3.5-5.1); Sodium 140 mmol/L (136-145); Total Bilirubin 0.2 mg/dL (0.15-1.2); Total Protein 5.7 g/dL (6.6-8.7)
[2020-05-15 18:47] LABS: Immunoglobulin IGA < 50 mg/dL (70-400); Immunoglobulin IGM < 25 mg/dL (40-230)
[2020-05-17 09:21] LABS: PROTEIN, TOTAL 5.2 g/dL (6.1-8.1)
[2020-05-17 13:11] LABS: KAPPA LIGHT CHAIN, FREE, SERUM 26.6 mg/L (3.3-19.4); KAPPA/LAMBDA LIGHT CHAINS FREE 0.13 (0.26-1.65); LAMBDA LIGHT CHAIN, FREE, SERU 205.2 mg/L (5.7-26.3)
[2020-05-17 16:00] LABS: ABNORMAL PROTEIN BAND 1 0.4 g/dL (NONE DETECTED); ABNORMAL PROTEIN BAND 2 0.1 g/dL (NONE DETECTED); ALPHA 1 GLOBULIN 0.3 g/dL (0.2-0.3); ALPHA 2 GLOBULIN 0.7 g/dL (0.5-0.9); BETA 1 GLOBULIN 0.4 g/dL (0.4-0.6); BETA 2 GLOBULIN 0.2 g/dL (0.2-0.5); GAMMA GLOBULIN 0.6 g/dL (0.8-1.7)
== END 2020-05-09 23:59 | disposition home or self-care (01) ==
LOC: ONCMED 06:51
PROVIDERS: Nurse Practitioner; PCP Electrodiagnostic Medicine; Visit Provider Internal Medicine Medical Oncology
DX: Z51.12 Encounter for antineoplastic immunotherapy (principal); C90.00 Multiple myeloma not having achieved remission; E83.42 Hypomagnesemia; R10.9 Unspecified abdominal pain; R39.15 Urgency of urination; R35.0 Frequency of micturition; S01.00XD Unspecified open wound of scalp, subsequent encounter; Y84.8 Other medical procedures as the cause of abnormal reaction of the patient, or of later complication, without mention of misadventure at the time of the procedure; M19.90 Unspecified osteoarthritis, unspecified site; M47.9 Spondylosis, unspecified; M48.061 Spinal stenosis, lumbar region without neurogenic claudication; M48.02 Spinal stenosis, cervical region; I10 Essential (primary) hypertension; N80.9 Endometriosis, unspecified; F41.8 Other specified anxiety disorders; E83.51 Hypocalcemia; Z92.3 Personal history of irradiation; Z86.711 Personal history of pulmonary embolism; Z79.01 Long term (current) use of anticoagulants; Z79.52 Long term (current) use of systemic steroids; Z80.0 Family history of malignant neoplasm of digestive organs; Z86.010 Personal history of colon polyps
CPT/HCPCS: 36415; 80053; 81003; 83735; 85007; 85027; 96367; 96413; 96415; 99214; J1100; J1200; J7040; J7050; J9145

== ENCOUNTER 2020-05-15 15:12 | Outpatient (CLI) | payer MEDICARE, SELFPAY ==
[2020-05-15] MEDS: alteplase 1 mg/mL SDV 2 mL 2 MG INTRACATH (15:35)
== END 2020-05-15 15:13 | disposition home or self-care (01) ==
LOC: ONCMED 15:16
PROVIDERS: PCP Electrodiagnostic Medicine; Visit Provider Nurse Practitioner
DX: C90.00 Multiple myeloma not having achieved remission (principal); E83.51 Hypocalcemia; D50.8 Other iron deficiency anemias; D47.2 Monoclonal gammopathy
CPT/HCPCS: 36415; 36593; 80053; 82784; 83735; 83883; 84155; 84165; 85025; 85651; 96374; J2997

== ENCOUNTER 2020-05-16 08:31 | Outpatient (CLI) | payer MEDICARE, SELFPAY ==
[2020-05-16] MEDS: acetaminophen 325 mg Tablet 650 MG PO (09:35)
[2020-05-16] MEDS: dexamethasone 20 MG in sodium chloride 0.9% 50 ML 187 MG IV (09:58)
[2020-05-16] MEDS: sodium chloride 0.9% 500 ML 250 ML IV (12:15)
[2020-05-16] MEDS: LORazepam 2 mg/mL INJ 1 mL 0.5 MG IVP (14:05)
--- NOTE | 2020-05-21 09:35 | ONC FU_ITS ---
[facility] Patient Note Patient: Valentin Clark Unit #: [id number]: [id number] Dictated By: Sue PatelDate of Visit: May 16, 2020 Onc MED Follow-Up/Prog Note Chief Complaint: Multiple myeloma. 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 In March 2018 she had bumped her head at work and in the process of that she became aware of a small lump, though it was actually in a slightly different area. She then noticed that the lump was getting larger. Evaluation with head MRI on 06/07/2018 showed evidence of a right parietal occipital extra-axial neoplasm, felt to be most likely meningeal in origin. It was noted to exert mass effect on the right parietal and occipital lobes, but without associated midline shift or white matter parenchymal edema. The lesion was noted to invade through the calvarium and into the subcutaneous parietal occipital scalp soft tissues. The mass measured 5.7 x 3.5 x 6 cm. 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 The area of occlusion was noted to extend over approximately 4.3 cm. She was seen by Dr. Landry and subsequently referred for neurosurgery evaluation at [facility]. Initially they had considered possible surgical resection. Her further evaluation there apparently included laboratory findings which were suspicious for myeloma, and it was recommended that she have treatment with radiation. She was seen here for further management on 07/14/2018. She then returned to Dr. Landry, and on 07/20/2018 she underwent open biopsy/resection of the extracranial extent of the mass. 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 Her further evaluation included protein electrophoresis which showed an IgG lambda monoclonal protein in the serum quantitating at 0.48 g/dL. The serum free light chain assay showed elevated lambda light chain at 374.65 mg/L with decreased kappa/lambda ratio at 0.06. The 24-hour urine protein electrophoresis showed no monoclonal protein. There were no other areas of lytic bone involvement noted on her skeletal survey. Bone marrow aspiration/biopsy on 07/30/2018 showed a monotypic plasma cell population, but it comprised only 2% of the total cellularity. A FISH panel for myeloma was unrevealing, and the standard chromosome analysis was normal. She was referred to Dr. Kaur, and she began radiation to the lesion on 07/30/2018. She completed treatment on 09/02/2018 to a total dose of 5,000 cGy. She had evaluation with CT pulmonary angiogram on 09/14/2018. It showed moderate bilateral pulmonary embolic burden. She began on anticoagulation with apixaban. During her subsequent follow-up she continued to have an open wound at the site of the plasmacytoma in the parietal-occipital scalp region. As of her follow-up visit on 10/19/2018 her M protein was stable 0.37 g/dL. In the absence of any evidence of symptomatic myeloma, she had otherwise just continued on observation/expectant management. However, due to her persistent scalp wound she had a repeat brain MRI on 01/11/2019. It showed evidence of residual neoplastic process at the resection site. There was associated dural involvement but with improved signal characteristics and decreased enhancement compared to the study from September 2018. She was seen for a follow-up visit on 01/20/2019. In view of the MRI findings, she had further evaluation with PET/CT on 02/03/2019. It showed increase in size and expansile hypermetabolic lesion within the left ilium with extension of hypermetabolic tumor into the adjacent left iliac muscle. There was a new hypermetabolic lytic process within the right S1/S2 region. A large lytic mass within the posterior calvarium did not appear to have active hypermetabolism. Also noted, though, was a hypermetabolic lesion within the medullary canal of the distal left femoral diametaphysis and an additional hypermetabolic focus in the anterior cortex of the distal right femur concerning for additional areas of myeloma. In the setting of obvious progression of her myeloma, she was recommended to begin a trial of therapy with Velcade/Revlimid/dexamethasone. Her other medical illnesses include hypertension and degenerative arthritis/degenerative disease of the spine. She has associated cervical and lumbar spinal stenosis. She has a history of endometriosis, and she has anxiety/depression. She is a nonsmoker. INTERIM HISTORY: She began cycle 1 of VRd on 02/23/2019. At that time she also received an infusion of IV Zometa for the lytic bone involvement. At that time, there was a slight increase in her baseline creatinine level to 1.2 mg/dL, and did opt to reduce her Revlimid dosage because of that. She experienced significant toxicity following her day 1 treatment, mainly having become listless and out of it over the next 4-5 days. She also lost her appetite. Her follow-up lab studies showed a drop in her calcium from baseline 10.3 mg/dL to 6.5 mg/dL with albumin 3.5 g/dL. With that finding, I did opt to hold her further Velcade, but she continued Revlimid and dexamethasone. As of 03/09/2019 she restarted treatment with Velcade at 1.3 mg/m??? weekly with Revlimid reduced to 15 mg daily on a 21/28 day schedule and the dexamethasone dosage reduced to 20 mg weekly. As of her day 15 visit, she was tolerating the treatment well. At that time she received the full dosage of Velcade, and she continued Revlimid 15 mg daily for 7 more days. She had subsequently developed diarrhea, and at her followup visit on 04/07/2019 her treatment was put on hold. She eventually continued with cycle 3 on 05/05/2019 with the Revlimid dosage further reduced to 10 mg daily on a 21/28 day schedule and with the Velcade and dexamethasone dosed weekly. Her repeat SPEP at that time showed residual M protein quantitating at 0.3 g/dL. The free light chain assay showed kappa light chain 100 mg/L, lambda light chain 122 mg/L, and kappa/lambda ratio 0.82. Her treatment was put on hold again at day 8 due to worsening neuropathy. She subsequently was able to continue the Revlimid and dexamethasone, but the Velcade remained on hold. Her repeat protein electrophoresis on 06/09/2019 showed stable M protein at 0.3 g/dL. The serum free light chain assay showed normal kappa/lambda ratio at 0.84. She was seen for a follow-up visit on 06/21/2019. At that point she appeared stable clinically. Her blood counts were adequate, and she continued with her 4th cycle of treatment. Her repeat protein electrophoresis on 07/13/2019 showed residual M protein quantitating at 0.2 g/dL. The free light chain assay showed elevated kappa light chain at 31.0 mg/L and elevated lambda light chain at 33.0 mg/L with normal kappa/lambda ratio at 0.94. Her 24-hour urine protein electrophoresis showed no detectable monoclonal protein. She was seen for a follow-up visit on 07/19/2019. At that point she complained of increased fatigue and excessive somnolence, and Dr Rodriguez put her treatment on hold. A subsequent restaging PET/CT showed no FDG avid sites of involvement. Her repeat head MRI on 08/10/2019 showed no evidence of recurrent or progressive disease. With those findings, It was opted to transition her treatment to maintenance Revlimid at 5 mg daily, which she started following her visit on 08/17/2019. Her further laboratory studies on 09/22/2019 also showed a low B12 level at 189 pg/mL, and she subsequently started B12 replacement therapy. A sleep study in October 2019 showed moderate obstructive sleep apnea. At her follow-up visit on 11/28/2019 she was still mildly anemic, and transferrin saturation was still low at 17% despite being on oral iron replacement. As such, she was then given parenteral iron replacement with infusions of Injectafer on 11/28/2019 and on 12/05/2019. With the 11/28 visit she also was given denosumab 120 mg by subcutaneous injection for the lytic bone involvement. On 12/06/2019 she was admitted to the hospital with symptomatic hypocalcemia, serum calcium 5.9 mg/dL with albumin 2.9 g/dL. Renal function was stable with creatinine 1.0 mg/dL, but her potassium also was low at 3.2 mmol/L. She was given IV calcium and potassium replacement. She then continued further IV replacement as an outpatient. Despite that she was readmitted to the hospital with hypocalcemia on 12/15/2019. She was discharged home on 12/23/2019. Her evaluation included CT pulmonary angiogram which showed no evidence of pulmonary embolism. There was evidence of cardiomegaly, a small pericardial effusion, and small bilateral pleural effusions. Echocardiogram showed small, hemodynamically insignificant pericardial effusion and normal left ventricular function. She then returned here on 12/27/2019 and she has since then continued IV fluid and electrolyte replacement, daily for the first week and then on Mondays, Wednesdays, and Fridays. Despite that, she continued to feel weak and shaky, and she had ongoing complaints of nausea and anorexia. She continued to require IV fluid and electrolyte replacement but she did show gradual recovery. Her further treatment remained on hold. Repeat protein electrophoresis on 01/16/2020 showed stable M protein at 0.4 g/dL. The serum free light chain assay showed elevated free lambda light chain at 254 mg/L with decreased kappa/lambda ratio at 0.16. There was no monoclonal protein identified in the 24-hour urine protein electrophoresis. Restaging PET/CT on 02/24/2020 showed findings concerning for disease progression with new areas of marrow hypermetabolism within the right proximal humerus and within the bilateral distal femoral diametaphysis. The existing areas of involvement within the left ilium and sacrum showed further decrease in FDG uptake. With those findings, it was recommended that she proceed to second line treatment with daratumumab/dexamethasone. She was scheduled to come in last week for her initial infusion of daratumumab, but the treatment was deferred when she developed low-grade fever and other acute symptoms. She eventually was able to begin her initial infusion of daratumumab on 03/21/2020. Her repeat free light chain assay prior to that showed further increase in the lambda light chain to 537 mg/L with kappa/lambda ratio 0.06. She tolerated the daratumumab with no adverse effects, and she then continued treatment weekly. As of 04/25/2020 she had completed her 6th infusion. Ms. Clark is here today for follow-up. She has no new concerns. She states that she still has very limited appetite. She is still having some intermittent diarrhea although she has had scope with Dr. Jimenes and it did not show anything significant . She is had intermittent headaches which she thinks may be related to the lesion on her skull. She states she did take some tramadol but that did not seem to help a whole lot. The headache is currently subsided. She denies any nausea or vomiting. She has had no fever or chills. She thinks she might of had some lightheadedness and maybe passed out . She is no more specific than that on her history. She has had no further of those almost passing out spells. It is noted that she has been taking her Lasix and has no lower extremity edema at present. She may have gotten orthostatic with a near passing out spell she denies any pain. Her ECOG remains at 1. Past Medical History: Anxiety/depression Cervical stenosis Degenerative arthritis Degenerative disease of the spine Depression Endometriosis Hypertension Lumbar stenosis Past Surgical History: Bilateral cataract excisions Cholecystectomy/gastric stapling Removal of ovarian cyst x 2 Tonsillectomy Left subclavian venous access device???Dr. Soriano-[facility] [place] in 2019 Allergies: BusPIRone HCl, Codeine and Related, Levaquin, and Morphine Derivatives. Medications: Acetaminophen 2 Tablet (of 500 mg) Oral PRN Bisacodyl 1 Tablet (of 5 mg) Tablet, enteric coated Oral daily Calcitriol 1 Capsule (of .25 mcg) Oral b.i.d. calicum 600 Tabminder (of 600 mg) Tablet Sublingual daily Cyclobenzaprine HCl 1 Tablet (of 5 mg) Oral PRN Dexamethasone (4 mg) Tablet Oral Take as Directed Eliquis 1 Tablet (of 2.5 mg) Oral b.i.d. FLUoxetine HCl 1 Capsule (of 20 mg) Oral daily Furosemide 1 - 2 Tablet (of 40 mg) Oral daily PRN GoodSense Stimulant Laxative 2 Tablet (of 8.6-50 mg) Oral t.i.d. PRN Loperamide A-D 1 Tablet (of 2 mg) Oral PRN Loratadine 1 Tablet (of 10 mg) Oral daily PRN LORazepam 1 Tablet (of 0.5 mg) Oral at bedtime Metoprolol Tartrate 0.5 Tablet (of 25 mg) Oral b.i.d. Ondansetron HCl 1 - 2 Tablet (of 4 mg) Oral PRN Pantoprazole Sodium 1 Tablet (of 40 mg) Tablet, enteric coated Oral b.i.d. Potassium Chloride ER 1 Tablet (of 20 meq) Tablet, controlled release Oral daily Probiotic Acidophilus 1 Capsule Tablet Oral b.i.d. traMADol HCl 1 Tablet (of 50 mg) Oral t.i.d. PRN Ventolin HFA Aerosol, solution Inhalation Vitamin D3 2 Capsule (of 2000 Units) Oral daily Family History: Ms. Clark's mother at age 84: emphysema, and congestive heart failure. Ms. Clark's father at age 53: heart disease, and myocardial infarction. Ms. Clark has 2 brothers: 1 alive, 1 . Ms. Clark's first brother's colon cancer, and type ii diabetes. Another brother's colon cancer. She has 2 sisters: 2 alive. Ms. Clark's first sister's herat disease, and type ii diabetes. Father of heart attack age 51. Mother with emphysema at age 78. She also had heart disease and diabetes. A sister has diabetes and heart disease. A brother has diabetes and he has been treated for colon cancer. A maternal uncle also had colon cancer, and a maternal aunt had breast cancer. 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 Ms. Calrk has never smoked. She drinks occasionally. She is a nonsmoker. She has had just rare alcohol use. Review Of Symptoms: Constitutional Denies fevers, chills, night sweats. Has fatigue. Has had scope per Dr Jimenes with no acute findings. Patient c/p intermittent headache-no vision changes. headache gone now. Allergic/Immunologic No reactions. Eyes Denies significant visual changes. No diplopia. No amaurosis. ENMT Denies changes in hearing, sore throat, mouth sores, difficulty or changes in swallowing ability, and/or sinus drainage. Endocrine No diabetes, thyroid disease or hormone replacement. Denies hot flashes or night sweats. Hematologic/Lymphatic Denies easy bruising or bleeding. The patient denies any tender or palpable lymph nodes. Respiratory Denies dyspnea on exertion, chest pain, cough or hemoptysis. Denies orthopnea. Cardiovascular Denies anginal chest pain, palpitations or orthopnea. Gastrointestinal Denies nausea, vomiting, GI bleeding, or constipation. She states she had diarrhea still but no worse. No form to the stools at all . Diarrhea better today but still unformed, watery stool. Genitourinary (F) No hematuria, hesitancy, incontinence, vaginal bleeding, discharge or other problems with urination. Musculoskeletal Denies joint pain, swelling or redness. No decreased range of motion. Integumentary Denies chronic rashes, inflammation, ulcerations or skin changes. Neurologic Denies headache, blurred vision, and no areas of focal weakness or numbness. Normal gait. No sensory problems. Psychiatric Denies insomnia, depression, olivia or mood swings. Vital Signs: Performed on May 16, 2020 08:56 Height - 63.50 in Weight - 192.6 lbs (HIGH) BSA - 1.91 sq.m BMI - 33.58 (HIGH) Temperature - 96.9 F (LOW) Pulse - 69 /min Respiration - 17 /min BP - 81/66 mm(hg) (LOW) O2 Sat - 96 % Pain - 4,1 - No physically strenuous activity, but ambulatory and able to carry out light or sedentary work (e.g. office work, light house work). (ECOG) Physical Examination: Constitutional Alert, oriented, no acute distress. Skin pink, warm and dry. Head Normocephalic; atraumatic. Posterior scalp wound is healing well without exudate or redness. It remains open-covered with dressing. Eyes Conjunctivae and sclerae are clear and without icterus. Pupils are reactive and equal. Neck Supple without masses or thyromegaly. No jugular venous distension. Hematologic/Lymphatic No petechiae or purpura. No tender or palpable lymph nodes in the cervical or supraclavicular areas. Respiratory Lungs are clear to auscultation without rhonchi or wheezing. Cardiovascular Regular rate and rhythm of heart without murmurs,clicks, gallops or rubs. Chest left sided port-unremarkable. Back/Spine Non-tender to palpation. Extremities No visible deformities, no cyanosis, clubbing or edema. Musculoskeletal No tenderness or swelling. Integumentary No rashes or lesions. Neurologic No sensory or motor deficits, normal cerebellar function, normal-slow gait. Psychiatric Alert and oriented times three. Coherent speech. Verbalizes understanding of our discussions today. Laboratory:Test performed on May 01, 2020 10:50 Sodium 140 mmol/L Potassium 4.4 mmol/L Chloride 104 mmol/L CO2 26 mmol/L Anion Gap 14.4 BUN 13 mg/dL Creatinine 0.9 mg/dL Cr Clearance (Est) 85.9300 mL/min eGFR 62.1 mL/min Glucose 108 mg/dL Calcium 9.0 mg/dL Protein, Total 6.3 g/dL Albumin 3.8 g/dL Globulin 2.5 g/dL Bilirubin, Total 0.3 mg/dL ALT (SGPT) 23 U/L AST (SGOT) 22 U/L Alkaline Phosphatase 74 IU/L WBC 6.4 10 3/uL RBC 4.43 10 6/uL HGB 13.0 g/dL HCT 41.4 % MCV 93.5 fL MCH 29.3 pg MCHC 31.4 g/dL RDW 15.6 % Platelet Count 234 10 3/cmm MPV 11.9 fL Manual Monocytes Abs 0.7 10 3/cmm Manual Lymphs % 27 % Manual Monos % 11.0 % Total Cells Counted 100 Test performed on May 01, 2020 09:06 Magnesium 1.9 mg/dL Test performed on Apr 24, 2020 09:45 Neutrophils (Gran) 3.9 10^9/L Lymphocytes 1.2 10^9/L Monocytes 0.5 10^9/L Eosinophils 0.0 10^9/L Basophils 0.1 10^9/L Manual Bands 20.9 % Manual Eosinophils 0.5 % Manual Basophils 1.2 % Test performed on April 10, 2020 14:05 Neutrophil % 72.3 % Lymphocyte % 17.0 % Monocyte % 9.6 % Eosinophil % 0.5 % Basophils % 0.3 % Test performed on Mar 13, 2020 08:05 ESR (Sed Rate) 17 mm/hr IgG 910 mg/dL IgA 97 mg/dL IgM 22 mg/dL Test performed on Feb 20, 2020 09:15 Phosphorus 2.3 mg/dL Test performed on Jan 16, 2020 14:00 NT proBNP 1439 pg/mL Homocysteine 7.04 umol/L LDH (Total) 80 U/L Methylmalonic Acid 79 nmol/L Vitamin B12 1566 pg/mL [place] Free Light Chains 40.4 mg/L [place]/Lambda Free Ratio 0.16 Test performed on Jan 02, 2020 09:16 Vitamin D (25-Hydroxy), Total 22 ng/mL Test performed on Nov 21, 2019 08:35 Ferritin 16 ng/mL % Iron Saturation 17.2 % Iron, Total 53 mcg/dL TIBC 308 mcg/dL NRBCs 0.0 /100 WBC Impression: 1. 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 She underwent resection/open biopsy of the extracranial portion of the mass on 07/20/2018. 2. She then underwent radiation, completed on 09/02/2018 to a total dose of 5000 cGy. 3. She has persistent open wound at the biopsy site. 4. She had associated IgG lambda monoclonal protein in the serum and 2% monoclonal plasma cells in the bone marrow, consistent with underlying myeloma. Initially it appeared to otherwise not be symptomatic. 5. She was found to have pulmonary emboli by CT pulmonary angiogram on 09/14/2018. She began anticoagulation with apixaban. Her other medical illnesses include: 6. Degenerative arthritis and degenerative disease of the spine with associated cervical and lumbar spinal stenosis. 7. Hypertension. 8. Endometriosis. 9. Anxiety/depression. During subsequent followup she had increasing pain in the left hip/buttock area. Her repeat protein electrophoresis studies showed only a slight increase in her M protein, but her repeat PET/CT on 02/03/2019 showed significant progression of lytic bone involvement in the left ilium. There was also possible involvement in the distal right femur. The area of lytic involvement in the calvarium was not metabolically active. On 02/23/2019 she began cycle 1 of Velcade/Revlimid/dexamethasone. She also was given an infusion of Zometa for the lytic bone involvement. 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 Her Velcade was put on hold. She stopped the Revlimid and dexamethasone as of 03/02/2019. At that point she was still having significant pain associated with the lytic bone involvement in the left ileum. During subsequent follow-up, the hypocalcemia improved. As of 03/09/2019 she was able to restart treatment with dose reductions in the Revlimid and dexamethasone. She had remained mildly anemic, but that appeared to be due to iron deficiency. As of her cycle 2 day 15 visit, she appeared to be doing well, and she continued to her treatment as scheduled. Subsequent to that visit, she developed severe diarrhea, and her treatment was put on hold. She continued with cycle 3 on 05/05/2019. She was given a further reduction in the Revlimid dosage to 10 mg daily on a 21/28 day schedule with the Velcade and dexamethasone dosed weekly. Her treatment was put on hold at day 8 due to worsening neuropathy. She subsequently was able to continue treatment with Revlimid/dexamethasone, but the Velcade remained on hold. She then continued with cycle 4 on 06/21/2019. As of her follow-up visit on 07/19/2019 her treatment was put on hold due to multiple complaints, the most significant being increased fatigue and excessive somnolence. A subsequent restaging PET/CT showed no active sites of involvement. She continued, though, to have severe fatigue/somnolence despite adjustments in her medication regimen. She also continued to have significant musculoskeletal pain, and she had a persistent open wound in the area of the vertex of her scalp. Her repeat head MRI on 08/10/2019 showed no evidence of recurrent or progressive disease. With those findings, her treatment was transitioned to maintenance Revlimid at 5 mg daily, which she started following her visit on 08/17/2019. As of her followup visit on 11/28/2019 she appeared to be tolerating the maintenance Revlimid with acceptable toxicity, and there had been no obvious progression of the myeloma. During that time she was found to have B12 deficiency, and she had been showing some improvement with B12 replacement. However, at that point she still had mild anemia, and her transferrin saturation and ferritin levels were consistent with iron deficiency despite the fact that she had been on oral iron supplementation. She was given parenteral iron replacement with 2 infusions of Injectafer. She also was given denosumab 120 mg by subcutaneous injection for the lytic bone involvement. On 12/06/2019 she was admitted to the hospital with symptomatic hypocalcemia. She also had hypokalemia and hyperphosphatemia. I was uncertain to what extent those abnormalities were due to the Injectafer, to the denosumab, or both. However, she continued to have persistent symptomatic hypocalcemia and hyperphosphatemia despite having both IV or oral replacement, and she required hospital admission again on 12/15/2019. During this time there was a significant in her performance status. She also developed shortness of breath and hypoxia. A specific cause for that was not determined. Following her hospitalization she continued outpatient IV fluid and electrolyte replacement along with oral calcium and vitamin D supplements. However, she did show gradual recovery with resolution of the hypocalcemia/hyperphosphatemia and she also had gradual improvement in her performance status. Her protein electrophoresis studies in January did show evidence of progression of her myeloma with increasing free lambda light chain and her restaging PET/CT in February also showed findings suspicious for disease progression. She did not appear to be overtly symptomatic, but with evidence of disease progression, she was recommended to begin second line treatment with daratumumab/dexamethasone. Her treatment was delayed after she developed fever and other symptoms, but she eventually did start treatment with daratumumab/dexamethasone on 03/21/2020. Her repeat free light chain assay prior to that had shown further increase in the lambda free light chain to 537 mg/L with kappa/lambda ratio 0.06. She tolerated the initial daratumumab infusion with no adverse effects, and she has been able to continue treatment weekly. She is currently at week 8. She does appear to be showing some gradual improvement in her performance status, though she continues to have significant GI symptoms and she still has nonhealing wound in her scalp. In addition, the second lesion in the calvarium has not yet been addressed. Plan: 1. Proceed with week /8 daratumumab with same premeds. 2. She will take dexamethasone today and tomorrow as scheduled .3. Labs from April were reviewed in detail and discussed with Ms. Clark and a copy was given to her. WBC 8.1 , hemoglobin 13.0, platelets 179,000, ANC is 5800 potassium 3.7 creatinine 1.3 LFTs are normal. 3. EGD from 05/03/[address] Jimenes was unremarkable there were no abnormalities seen in the esophagus the GE junction and the whole stomach with unspecified abnormality noted consistent abnormal curvature of the stomach absent which is consistent with a history of gastric bypass no acute lesions or ulcerations. The duodenum was examined and no abnormalities were seen. She did also have colonoscopy on 05/03/2020 in the rectum there was 1 polyp ranging in size from 2 mm to 4 mm it was hyperplastic in appearance and was sent for biopsy- the final pathology is pending. 4. We will plan for her to return in 2 weeks for cycle 3 day 1 daratumumab. I have asked for a CBC and CMP at that time. 5. Ms. Clark was instructed to contact us in the interim should questions or problems arise. Signed By: Sue Patel-, AOSMOOTH Rodriguez MD <<Signature on File>>
== END 2020-05-16 08:32 | disposition home or self-care (01) ==
LOC: ONCMED 08:33
PROVIDERS: PCP Electrodiagnostic Medicine; Visit Provider Nurse Practitioner
DX: Z51.12 Encounter for antineoplastic immunotherapy (principal); C90.00 Multiple myeloma not having achieved remission; I10 Essential (primary) hypertension; M47.9 Spondylosis, unspecified; M48.02 Spinal stenosis, cervical region; M48.061 Spinal stenosis, lumbar region without neurogenic claudication; F41.9 Anxiety disorder, unspecified; F32.9 Major depressive disorder, single episode, unspecified; N80.9 Endometriosis, unspecified; Z92.21 Personal history of antineoplastic chemotherapy; Z79.899 Other long term (current) drug therapy
CPT/HCPCS: 96361; 96367; 96375; 96413; 96415; 99214; J1100; J1200; J2060; J7040; J9145

== ENCOUNTER 2020-05-17 10:38 | Outpatient (CLI) | payer MEDICARE, SELFPAY | END 2020-05-17 10:39 | disposition home or self-care (01) | LOC: WOUND 10:40 | PROVIDERS: PCP Electrodiagnostic Medicine; Visit Provider Nurse Practitioner Family | DX: L59.8 Other specified disorders of the skin and subcutaneous tissue related to radiation (principal); Y84.2 Radiological procedure and radiotherapy as the cause of abnormal reaction of the patient, or of later complication, without mention of misadventure at the time of the procedure; Y78.1 Therapeutic (nonsurgical) and rehabilitative radiological devices associated with adverse incidents | CPT/HCPCS: G0463 ==

== ENCOUNTER 2020-05-29 10:42 | Outpatient (CLI) | payer MEDICARE, SELFPAY ==
[2020-05-29 11:08] LABS: Basophils % 0.3 %; Eosinophils % 0.2 %; Hematocrit 37.4 % (37.0-47.0); Hemoglobin 12.2 g/dL (11.5-15.3); Lymphocytes # 2.2 10^3/uL (0.8-4.8); Lymphocytes % 33.7 %; Mean Corpuscular HGB Conc 32.6 g/dL (30.0-36.0); Mean Corpuscular Hemoglobin 30.2 pg (28.0-34.0); Mean Corpuscular Volume 92.6 fL (81-99); Mean Platelet Volume 11.5 fL (7.4-10.4); Monocytes # 0.6 10^3/uL (0.2-0.9); Monocytes % 9.9 %; Neutrophils % 55.6 %; Nucleated Red Blood Cells % 0 %; Platelet Count 196 10^3/cmm (130-400); Red Blood Count 4.04 10^6/uL (4.1-5.3); Red Cell Distribution Width 14.3 % (12.1-15.1); White Blood Count 6.5 10^3/uL (4.0-10.0)
[2020-05-29 11:26] LABS: Alanine Aminotransferase 24 U/L (0-33); Albumin Level 3.6 g/dL (3.5-5.2); Alkaline Phosphatase 74 IU/L (35-105); Anion Gap 12.4 (5-19); Aspartate Amino Transferase 22 U/L (0-32); Blood Urea Nitrogen 22 mg/dL (8-23); Calcium 9.1 mg/dL (8.5-10.5); Carbon Dioxide 26 mmol/L (22-29); Chloride 103 mmol/L (98-107); Globulin 2.2 g/dL (1.3-4.6); Glomerular Filtration Rate 49.2 mL/min (90-130); Glucose 101 mg/dL (65-115); Osmolality Calculated 283 mOsm/kg (285-295); Potassium 3.4 mmol/L (3.5-5.1); Sodium 138 mmol/L (136-145); Total Bilirubin 0.2 mg/dL (0.15-1.2); Total Protein 5.8 g/dL (6.6-8.7)
== END 2020-05-29 10:43 | disposition home or self-care (01) ==
LOC: ONCMED 14:48
PROVIDERS: PCP Electrodiagnostic Medicine; Visit Provider Nurse Practitioner
DX: C90.00 Multiple myeloma not having achieved remission (principal); C79.51 Secondary malignant neoplasm of bone; D47.2 Monoclonal gammopathy; D50.9 Iron deficiency anemia, unspecified; E83.51 Hypocalcemia
CPT/HCPCS: 80053; 85025; 96523

== ENCOUNTER 2020-05-30 10:31 | Outpatient (CLI) | payer MEDICARE, SELFPAY ==
[2020-05-30] MEDS: acetaminophen 325 mg Tablet 650 MG PO (11:40)
[2020-05-30] MEDS: dexamethasone 20 MG in sodium chloride 0.9% 50 ML 187 MG IV (11:40)
[2020-05-30] MEDS: sodium chloride 0.9% 250 ML 75 ML IV (11:40)
--- NOTE | 2020-06-03 13:27 | ONC FU_ITS ---
Dr. Rodriguez Patient Follow-Up Note Patient: Valentin Clark Unit #: [id number]: 1950 Dicatated By: Ruiz Rodriguez M.D.Date of Visit:May 30, 2020 Onc Med Follow-up/Prog Note Chief Complaint: Mulitple myeloma. 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 In March 2018 she had bumped her head at work and in the process of that she became aware of a small lump, though it was actually in a slightly different area. She then noticed that the lump was getting larger. Evaluation with head MRI on 06/07/2018 showed evidence of a right parietal occipital extra-axial neoplasm, felt to be most likely meningeal in origin. It was noted to exert mass effect on the right parietal and occipital lobes, but without associated midline shift or white matter parenchymal edema. The lesion was noted to invade through the calvarium and into the subcutaneous parietal occipital scalp soft tissues. The mass measured 5.7 x 3.5 x 6 cm. 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 The area of occlusion was noted to extend over approximately 4.3 cm. She was seen by Dr. Landry and subsequently referred for neurosurgery evaluation at [facility]. Initially they had considered possible surgical resection. Her further evaluation there apparently included laboratory findings which were suspicious for myeloma, and it was recommended that she have treatment with radiation. She was seen here for further management on 07/14/2018. She then returned to Dr. Landry, and on 07/20/2018 she underwent open biopsy/resection of the extracranial extent of the mass. 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 Her further evaluation included protein electrophoresis which showed an IgG lambda monoclonal protein in the serum quantitating at 0.48 g/dL. The serum free light chain assay showed elevated lambda light chain at 374.65 mg/L with decreased kappa/lambda ratio at 0.06. The 24-hour urine protein electrophoresis showed no monoclonal protein. There were no other areas of lytic bone involvement noted on her skeletal survey. Bone marrow aspiration/biopsy on 07/30/2018 showed a monotypic plasma cell population, but it comprised only 2% of the total cellularity. A FISH panel for myeloma was unrevealing, and the standard chromosome analysis was normal. She was referred to Dr. Kaur, and she began radiation to the lesion on 07/30/2018. She completed treatment on 09/02/2018 to a total dose of 5,000 cGy. She had evaluation with CT pulmonary angiogram on 09/14/2018. It showed moderate bilateral pulmonary embolic burden. She began on anticoagulation with apixaban. During her subsequent follow-up she continued to have an open wound at the site of the plasmacytoma in the parietal-occipital scalp region. As of her follow-up visit on 10/19/2018 her M protein was stable 0.37 g/dL. In the absence of any evidence of symptomatic myeloma, she had otherwise just continued on observation/expectant management. However, due to her persistent scalp wound she had a repeat brain MRI on 01/11/2019. It showed evidence of residual neoplastic process at the resection site. There was associated dural involvement but with improved signal characteristics and decreased enhancement compared to the study from September 2018. She was seen for a follow-up visit on 01/20/2019. In view of the MRI findings, she had further evaluation with PET/CT on 02/03/2019. It showed increase in size and expansile hypermetabolic lesion within the left ilium with extension of hypermetabolic tumor into the adjacent left iliac muscle. There was a new hypermetabolic lytic process within the right S1/S2 region. A large lytic mass within the posterior calvarium did not appear to have active hypermetabolism. Also noted, though, was a hypermetabolic lesion within the medullary canal of the distal left femoral diametaphysis and an additional hypermetabolic focus in the anterior cortex of the distal right femur concerning for additional areas of myeloma. In the setting of obvious progression of her myeloma, she was recommended to begin a trial of therapy with Velcade/Revlimid/dexamethasone. Her other medical illnesses include hypertension and degenerative arthritis/degenerative disease of the spine. She has associated cervical and lumbar spinal stenosis. She has a history of endometriosis, and she has anxiety/depression. She is a nonsmoker. INTERIM HISTORY: She began cycle 1 of VRd on 02/23/2019. At that time she also received an infusion of IV Zometa for the lytic bone involvement. At that time, there was a slight increase in her baseline creatinine level to 1.2 mg/dL, and did opt to reduce her Revlimid dosage because of that. She experienced significant toxicity following her day 1 treatment, mainly having become listless and out of it over the next 4-5 days. She also lost her appetite. Her follow-up lab studies showed a drop in her calcium from baseline 10.3 mg/dL to 6.5 mg/dL with albumin 3.5 g/dL. With that finding, I did opt to hold her further Velcade, but she continued Revlimid and dexamethasone. As of 03/09/2019 she restarted treatment with Velcade at 1.3 mg/m??? weekly with Revlimid reduced to 15 mg daily on a 21/28 day schedule and the dexamethasone dosage reduced to 20 mg weekly. As of her day 15 visit, she was tolerating the treatment well. At that time she received the full dosage of Velcade, and she continued Revlimid 15 mg daily for 7 more days. She had subsequently developed diarrhea, and at her followup visit on 04/07/2019 her treatment was put on hold. She eventually continued with cycle 3 on 05/05/2019 with the Revlimid dosage further reduced to 10 mg daily on a 21/28 day schedule and with the Velcade and dexamethasone dosed weekly. Her repeat SPEP at that time showed residual M protein quantitating at 0.3 g/dL. The free light chain assay showed kappa light chain 100 mg/L, lambda light chain 122 mg/L, and kappa/lambda ratio 0.82. Her treatment was put on hold again at day 8 due to worsening neuropathy. She subsequently was able to continue the Revlimid and dexamethasone, but the Velcade remained on hold. Her repeat protein electrophoresis on 06/09/2019 showed stable M protein at 0.3 g/dL. The serum free light chain assay showed normal kappa/lambda ratio at 0.84. She was seen for a follow-up visit on 06/21/2019. At that point she appeared stable clinically. Her blood counts were adequate, and she continued with her 4th cycle of treatment. Her repeat protein electrophoresis on 07/13/2019 showed residual M protein quantitating at 0.2 g/dL. The free light chain assay showed elevated kappa light chain at 31.0 mg/L and elevated lambda light chain at 33.0 mg/L with normal kappa/lambda ratio at 0.94. Her 24-hour urine protein electrophoresis showed no detectable monoclonal protein. She was seen for a follow-up visit on 07/19/2019. At that point she complained of increased fatigue and excessive somnolence, and I did opt to put her treatment on hold. A subsequent restaging PET/CT showed no FDG avid sites of involvement. Her repeat head MRI on 08/10/2019 showed no evidence of recurrent or progressive disease. With those findings, I opted to transition her treatment to maintenance Revlimid at 5 mg daily, which she started following her visit on 08/17/2019. Her further laboratory studies on 09/22/2019 also showed a low B12 level at 189 pg/mL, and she subsequently started B12 replacement therapy. A sleep study in October 2019 showed moderate obstructive sleep apnea. At her follow-up visit on 11/28/2019 she was still mildly anemic, and transferrin saturation was still low at 17% despite being on oral iron replacement. As such, she was then given parenteral iron replacement with infusions of Injectafer on 11/28/2019 and on 12/05/2019. With the 11/28 visit she also was given denosumab 120 mg by subcutaneous injection for the lytic bone involvement. On 12/06/2019 she was admitted to the hospital with symptomatic hypocalcemia, serum calcium 5.9 mg/dL with albumin 2.9 g/dL. Renal function was stable with creatinine 1.0 mg/dL, but her potassium also was low at 3.2 mmol/L. She was given IV calcium and potassium replacement. She then continued further IV replacement as an outpatient. Despite that she was readmitted to the hospital with hypocalcemia on 12/15/2019. She was discharged home on 12/23/2019. Her evaluation included CT pulmonary angiogram which showed no evidence of pulmonary embolism. There was evidence of cardiomegaly, a small pericardial effusion, and small bilateral pleural effusions. Echocardiogram showed small, hemodynamically insignificant pericardial effusion and normal left ventricular function. She then returned here on 12/27/2019 and she has since then continued IV fluid and electrolyte replacement, daily for the first week and then on Mondays, Wednesdays, and Fridays. Despite that, she continued to feel weak and shaky, and she had ongoing complaints of nausea and anorexia. She continued to require IV fluid and electrolyte replacement but she did show gradual recovery. Her further treatment remained on hold. Repeat protein electrophoresis on 01/16/2020 showed stable M protein at 0.4 g/dL. The serum free light chain assay showed elevated free lambda light chain at 254 mg/L with decreased kappa/lambda ratio at 0.16. There was no monoclonal protein identified in the 24-hour urine protein electrophoresis. Restaging PET/CT on 02/24/2020 showed findings concerning for disease progression with new areas of marrow hypermetabolism within the right proximal humerus and within the bilateral distal femoral diametaphysis. The existing areas of involvement within the left ilium and sacrum showed further decrease in FDG uptake. With those findings, I had recommended that she proceed to second line treatment with daratumumab/dexamethasone. She was scheduled to come in last week for her initial infusion of daratumumab, but the treatment was deferred when she developed low-grade fever and other acute symptoms. She eventually was able to begin her initial infusion of daratumumab on 03/21/2020. Her repeat free light chain assay prior to that showed further increase in the lambda light chain to 537 mg/L with kappa/lambda ratio 0.06. She tolerated the daratumumab with no adverse effects, and she then continued treatment weekly. On 05/03/2020 she underwent EGD and colonoscopy by Dr. Jimenes. The EGD showed no significant abnormal findings, and the colonoscopy showed just 2 small polyps in the rectum. 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 As of 05/09/2020 she had completed her 8th infusion on the weekly schedule, and as of 05/16/2020 she received her 1st of 8 planned infusions at the 2-week interval. Her M protein at that point was stable at 0.4 g/dL. The free light chain assay showed a decrease in the free lambda light chain from 537.42 205.2 mg/L. She is seen for a followup visit. She says her energy still comes and goes. She does feel good for about 2 days after her steroid, but otherwise she struggles. Overall, though, it is not as bad. She is able to do light work. ECOG score is 1. Appetite is still not good, but her weight now has stabilized. She has not had fever. She does report having a lot of sweating, mainly during the daytime. He says the roof of her mouth was sore again last week. She does not complain of shortness of breath, cough, or chest pain. She had some transient nausea last week. She has been having a little more acid reflux. She says she is not having diarrhea now. She has frequent urination with some urgency and incontinence. She has pain in the lower back with lifting. Yesterday she had severe cramping in her right hand. That problem comes and goes. For the past 2 weeks she has had headaches. She has no focal neurologic symptoms. Medications: Acetaminophen 2 Tablet (of 500 mg) Oral PRN, Bisacodyl 1 Tablet (of 5 mg) Tablet, enteric coated Oral daily, Calcitriol 1 Capsule (of .25 mcg) Oral b.i.d., calicum 600 Tabminder (of 600 mg) Tablet Sublingual b.i.d., Cyclobenzaprine HCl 1 Tablet (of 5 mg) Oral PRN, Dexamethasone (4 mg) Tablet Oral Take as Directed, Eliquis 1 Tablet (of 2.5 mg) Oral b.i.d., FLUoxetine HCl 1 Capsule (of 20 mg) Oral daily, Furosemide 1 - 2 Tablet (of 40 mg) Oral daily PRN, GoodSense Stimulant Laxative 2 Tablet (of 8.6-50 mg) Oral t.i.d. PRN, Loperamide A-D 1 Tablet (of 2 mg) Oral PRN, Loratadine 1 Tablet (of 10 mg) Oral daily PRN, LORazepam 1 Tablet (of 0.5 mg) Oral at bedtime, Metoprolol Tartrate 0.5 Tablet (of 25 mg) Oral b.i.d., Ondansetron HCl 1 - 2 Tablet (of 4 mg) Oral PRN, Pantoprazole Sodium 1 Tablet (of 40 mg) Tablet, enteric coated Oral b.i.d., Potassium Chloride ER 1 Tablet (of 20 meq) Tablet, controlled release Oral daily, Probiotic Acidophilus 1 Capsule Tablet Oral b.i.d., traMADol HCl 1 Tablet (of 50 mg) Oral t.i.d. PRN, Ventolin HFA Aerosol, solution Inhalation, Vitamin D3 2 Capsule (of 2000 Units) Oral daily Allergies: BusPIRone HCl, Codeine and Related, Levaquin, and Morphine Derivatives. Review of Systems: Constitutional - Her energy comes and goes. She does not feel good for a couple of days after her steroid. Her appetite is still not good, but her weight is now stable. No fever, night sweats, or hot flashes. ECOG score is 1, ENMT - She has allergy related sinus symptoms. The roof of her mouth was sore last week. No sore throat or difficulty swallowing, Hematologic/Lymphatic - She has had some bruising on her arms. No bleeding, Respiratory - No shortness of breath. No cough. No pleuritic pain or hemoptysis, Cardiovascular - No angina pain. No palpitations, Gastrointestinal - She had some transient nausea last week. She has had a little more acid reflux. She is not having diarrhea now. No constipation. No blood in the stool or black stools. She is having a colonoscopy tomorrow, Genitourinary (F) - No dysuria or hematuria. She has urinary frequency with urgency and with occasional incontinence, Musculoskeletal - She has lower back pain with lifting. Yesterday she had severe cramping in her right hand. It comes and goes, Integumentary - No skin rash, Neurologic - For the past 2 weeks she has been having headaches. No dizziness. No numbness or tingling. No other focal neurologic symptoms, Psychiatric - She has some anxiety and depression. No insomnia. Vital Signs: Performed on May 30, 2020 14:05 Height - 63.50 in Temperature - 97 F (LOW) Pulse - 62 /min Respiration - 18 /min BP - 117/72 mm(hg) O2 Sat - 96 % Pain - 0 Fatigue - 0 Performed on May 30, 2020 10:31 Height - 63.50 in Weight - 193.4 lbs (HIGH) BSA - 1.92 sq.m BMI - 33.72 (HIGH) Temperature - 97.0 F (LOW) Pulse - 60 /min Respiration - 24 /min BP - 106/69 mm(hg) O2 Sat - 96 % Pain - 0 Physical Examination: Constitutional - She looks pretty good generally, Eyes - Sclerae nonicteric. Conjunctivae clear, ENMT - No lesions noted in the oral cavity, Hematologic/Lymphatic - No cervical, clavicular, or axillary adenopathy, Respiratory - Lungs sound clear, Cardiovascular - Heart rhythm is regular. There is a II/ systolic murmur. There is no gallop or rub noted, Abdomen - Soft. Liver and spleen are not enlarged. There is no abdominal mass or ascites noted and there is no inguinal adenopathy, Extremities - No edema. She has a few scattered purpuric lesions, Integumentary - She still has an open wound in the vertex area of her scalp. There is a small nodule in the scalp just inferior and lateral to it, Neurologic - No focal neurologic deficits noted. Lab/Imaging: CBC shows hemoglobin 12.2 g, white blood cell count 6500, and platelet count 196,000. Comprehensive metabolic profile shows borderline renal function with BUN 22 and creatinine 1.1 mg/dL. Potassium is slightly low at 3.4 mmol/L. Liver enzymes are normal. Impression: 1. 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 She underwent resection/open biopsy of the extracranial portion of the mass on 07/20/2018. 2. She then underwent radiation, completed on 09/02/2018 to a total dose of 5000 cGy. 3. She has persistent open wound at the biopsy site. 4. She had associated IgG lambda monoclonal protein in the serum and 2% monoclonal plasma cells in the bone marrow, consistent with underlying myeloma. Initially it appeared to otherwise not be symptomatic. 5. She was found to have pulmonary emboli by CT pulmonary angiogram on 09/14/2018. She began anticoagulation with apixaban. Her other medical illnesses include: 6. Degenerative arthritis and degenerative disease of the spine with associated cervical and lumbar spinal stenosis. 7. Hypertension. 8. Endometriosis. 9. Anxiety/depression. During subsequent followup she had increasing pain in the left hip/buttock area. Her repeat protein electrophoresis studies showed only a slight increase in her M protein, but her repeat PET/CT on 02/03/2019 showed significant progression of lytic bone involvement in the left ilium. There was also possible involvement in the distal right femur. The area of lytic involvement in the calvarium was not metabolically active. On 02/23/2019 she began cycle 1 of Velcade/Revlimid/dexamethasone. She also was given an infusion of Zometa for the lytic bone involvement. Her treatment was complicated by [employer] toxicity and hypocalcemia. Her Velcade was put on hold. She stopped the Revlimid and dexamethasone as of 03/02/2019. At that point she was still having significant pain associated with the lytic bone involvement in the left ileum. During subsequent follow-up, the hypocalcemia improved. As of 03/09/2019 she was able to restart treatment with dose reductions in the Revlimid and dexamethasone. She had remained mildly anemic, but that appeared to be due to iron deficiency. As of her cycle 2 day 15 visit, she appeared to be doing well, and she continued to her treatment as scheduled. Subsequent to that visit, she developed severe diarrhea, and her treatment was put on hold. She continued with cycle 3 on 05/05/2019. She was given a further reduction in the Revlimid dosage to 10 mg daily on a day schedue with the Velcade and dexamethasone dosed weekly. Her treatment was put on hold at day 8 due to worsening neuropathy. She subsequently was able to continue treatment with Revlimid/dexamethasone, but the Velcade remained on hold. She then continued with cycle 4 on 06/21/2019. As of her follow-up visit on 07/19/2019 her treatment was put on hold due to multiple complaints, the most significant being increased fatigue and excessive somnolence. A subsequent restaging PET/CT showed no active sites of involvement. She continued, though, to have severe fatigue/somnolence despite adjustments in her medication regimen. She also continued to have significant musculoskeletal pain, and she had a persistent open wound in the area of the vertex of her scalp. Her repeat head MRI on 08/10/2019 showed no evidence of recurrent or progressive disease. With those findings, her treatment was transitioned to maintenance Revlimid at 5 mg daily, which she started following her visit on 08/17/2019. As of her followup visit on 11/28/2019 she appeared to be tolerating the maintenance Revlimid with acceptable toxicity, and there had been no obvious progression of the myeloma. During that time she was found to have B12 deficiency, and she had been showing some improvement with B12 replacement. However, at that point she still had mild anemia, and her transferrin saturation and ferritin levels were consistent with iron deficiency despite the fact that she had been on oral iron supplementation. She was given parenteral iron replacement with 2 infusions of Injectafer. She also was given denosumab 120 mg by ssubcutaneous injection for the lytic bone involvement. On 12/06/2019 she was admitted to the hospital with symptomatic hypocalcemia. She also had hypokalemia and hypophosphatemia. I was uncertain to what extent those abnormalities were due to the Injectafer, to the denosumab, or both. However, she continued to have persistent symptomatic hypocalemia and hypophosphatemia despite having both IV or oral replacement, and she required hospital admission again on 12/15/2019. During this time there was a significant in her performance status. She also developed shortness of breath and hypoxia. A specific cause for that was not determined. Following her hospitalization she continued outpatient IV fluid and electrolyte replacement along with oral calcium and vitamin D supplements. However, she did show gradual recovery with resolution of the hypocalcemia/hypophosphatemia and she also had gradual improvement in her performance status. Her protein electrophoresis studies in January did show evidence of progression of her myeloma with increasing free lambda light chain and her restaging PET/CT in February also showed findings suspicious for disease progression. She did not appear to be overtly symptomatic, but with evidence of disease progression, she was recommended to begin second line treatment with daratumumab/dexamethasone. Her treatment was delayed after she developed fever and other symptoms, but she eventually did start treatment with daratumumab/dexamethasone on 03/21/2020. Her repeat free light chain assay prior to that had shown further increase in the free lambda light chain to 537 mg/L with kappa/lambda ratio 0.06. She tolerated the initial daratumumab infusion with no adverse effects, and she was then able to continue treatment weekly. As of 05/09/2020 she completed the 8th infusion on the weekly schedule, and as of 05/16/2020 she began her 1st of 8 planned infusions at 2-week intervals. At that point the free light chain assay had shown a significant decrease in the free lambda light chain, to 205 mg/L. Overall, she has been showing very gradual improvement in her clinical status, though she continues to have multiple complaints. Plan: She will continue the daratumumab infusions at 2-week intervals along with dexamethasone 20 mg weekly. She will increase her potassium supplement to twice a day. She will be scheduled for repeat head MRI, as there was a new lesion suspected on her last study. She will have further evaluation as indicated. Signed By: Ruiz Rodriguez M.D. <<Signature on File>>
== END 2020-05-30 10:32 | disposition home or self-care (01) ==
LOC: ONCMED 10:35
PROVIDERS: PCP Electrodiagnostic Medicine; Visit Provider Internal Medicine Medical Oncology
DX: Z51.12 Encounter for antineoplastic immunotherapy (principal); C90.00 Multiple myeloma not having achieved remission; R51 Headache; R25.2 Cramp and spasm; S01.00XD Unspecified open wound of scalp, subsequent encounter; Y84.8 Other medical procedures as the cause of abnormal reaction of the patient, or of later complication, without mention of misadventure at the time of the procedure; M48.061 Spinal stenosis, lumbar region without neurogenic claudication; M48.02 Spinal stenosis, cervical region; I10 Essential (primary) hypertension; N80.9 Endometriosis, unspecified; F41.8 Other specified anxiety disorders; Z86.711 Personal history of pulmonary embolism; Z79.01 Long term (current) use of anticoagulants; Z92.3 Personal history of irradiation; Z79.899 Other long term (current) drug therapy; Z79.52 Long term (current) use of systemic steroids
CPT/HCPCS: 96367; 96413; 96415; 99214; J1100; J1200; J7040; J7050; J9145

== ENCOUNTER 2020-05-31 09:19 | Outpatient (RCR) | payer MEDICARE, SELFPAY | END 2020-06-15 23:59 | disposition home or self-care (01) | LOC: WOUND 09:19 | PROVIDERS: PCP Electrodiagnostic Medicine; Visit Provider Emergency Medicine | DX: L59.8 Other specified disorders of the skin and subcutaneous tissue related to radiation (principal); Y84.2 Radiological procedure and radiotherapy as the cause of abnormal reaction of the patient, or of later complication, without mention of misadventure at the time of the procedure; Y78.1 Therapeutic (nonsurgical) and rehabilitative radiological devices associated with adverse incidents | CPT/HCPCS: 11042; 87070; 87077; 87176; 87186; 87205 ==

== ENCOUNTER 2020-06-05 12:34 | Outpatient (CLI) | payer MEDICARE, SELFPAY ==
--- NOTE | 2020-06-05 12:59 | MR_ITS ---
WS: [id number] MRI BRAIN WITH AND WITHOUT CONTRAST HISTORY: PLASMACYTOMA COMPARISON: 02/01/2020, 08/10/2019 TECHNIQUE: Multiplanar imaging performed through the brain with Prohance 17 ml's IV. No acute infarcts are seen. Dennis-white matter differentiation is well preserved. Mild chronic microva scular ischemic changes in the white matter have not progressed. No susceptibility artifacts or prior lacunar infarcts. Ventricles and extra-axial spaces are normal. Clivus and pituitary gland are normal. Visualized posterior fossa and brainstem are also normal. Postcontrast images are negative for masses or vascular malformations. Dural venous sinuses are normal. Paranasal sinuses: Well aerated with no significant disease. Mastoid air cells: Normal. Calvarium and scalp: Large postoperative RIGHT parietal occipital resection and craniectomy site is a gain identified. Mild postoperative enhancement at the resection cavity and the adjacent calvarium. T here is more enhancement at the resection site than on the prior study. There is mild progressive enh ancement of the adjacent dura. There are numerous additional enhancing calvarial lesions demonstrating marked progression since 01/31. The largest was previously described in the posterior RIGHT parietal bone measuring 2.2 cm. In creased in size from 0.9 cm. There are additional bilateral calvarial lesions which are best seen on the post enhancement examination. MR/MR head wo/w con [id number] IMPRESSION: 1. 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 Numerous calvarial lesions are now present with the largest in the RIGHT parietal bone measuring 2.2 cm. 2. Postoperative resection site in the posterior RIGHT parietal bone has sligh tly more enhancement and is slightly more dural enhancement. Suspicious for pro gression of neoplastic changes at the resection site.
== END 2020-06-05 12:35 | disposition home or self-care (01) ==
LOC: RADSHAW 12:44
PROVIDERS: PCP Electrodiagnostic Medicine; Visit Provider Internal Medicine Medical Oncology
DX: C90.30 Solitary plasmacytoma not having achieved remission (principal)
CPT/HCPCS: 70553; A9579

== ENCOUNTER 2020-06-07 09:45 | Outpatient (CLI) | payer MEDICARE, SELFPAY | END 2020-06-07 09:46 | disposition home or self-care (01) | LOC: WOUND 09:50 | PROVIDERS: PCP Electrodiagnostic Medicine; Visit Provider Nurse Practitioner Family | DX: L59.8 Other specified disorders of the skin and subcutaneous tissue related to radiation (principal); Y84.2 Radiological procedure and radiotherapy as the cause of abnormal reaction of the patient, or of later complication, without mention of misadventure at the time of the procedure; Y78.1 Therapeutic (nonsurgical) and rehabilitative radiological devices associated with adverse incidents | CPT/HCPCS: 99214 ==

== ENCOUNTER 2020-06-13 08:08 | Outpatient (CLI) | payer MEDICARE, SELFPAY ==
[2020-06-13 09:05] LABS: Basophils # 0.1 10^3/uL (0.0-0.1); Eosinophils # 0.1 10^3/uL (0.0-0.8); Hematocrit 35.8 % (37.0-47.0); Hemoglobin 11.2 g/dL (11.5-15.3); Lymphocytes # 3.4 10^3/uL (0.8-4.8); Lymphocytes % 49.6 %; Mean Corpuscular HGB Conc 31.3 g/dL (30.0-36.0); Mean Corpuscular Hemoglobin 29.1 pg (28.0-34.0); Mean Platelet Volume 11.9 fL (7.4-10.4); Monocytes # 0.7 10^3/uL (0.2-0.9); Monocytes % 9.8 %; Neutrophils # 2.65 10^3/uL (1.8-7.7); Neutrophils % 38.5 %; Nucleated Red Blood Cells % 0 %; Platelet Count 211 10^3/cmm (130-400); Red Blood Count 3.85 10^6/uL (4.1-5.3); Red Cell Distribution Width 14.7 % (12.1-15.1); White Blood Count 6.9 10^3/uL (4.0-10.0)
[2020-06-13 09:19] LABS: Alanine Aminotransferase 19 U/L (0-33); Albumin Level 3.5 g/dL (3.5-5.2); Alkaline Phosphatase 77 IU/L (35-105); Aspartate Amino Transferase 22 U/L (0-32); Blood Urea Nitrogen 12 mg/dL (8-23); Calcium 9.4 mg/dL (8.5-10.5); Carbon Dioxide 22 mmol/L (22-29); Chloride 107 mmol/L (98-107); Globulin 2.1 g/dL (1.3-4.6); Glomerular Filtration Rate 49.2 mL/min (90-130); Glucose 102 mg/dL (65-115); Immunoglobulin IGG 659 mg/dL (700-1600); Magnesium 1.7 mg/dL (1.7-2.3); Osmolality Calculated 286 mOsm/kg (285-295); Sodium 140 mmol/L (136-145); Total Bilirubin 0.4 mg/dL (0.15-1.2); Total Protein 5.6 g/dL (6.6-8.7)
[2020-06-13 09:41] LABS: Immunoglobulin IGA < 50 mg/dL (70-400); Immunoglobulin IGM < 25 mg/dL (40-230)
[2020-06-13] MEDS: acetaminophen 325 mg Tablet 650 MG PO (11:34)
[2020-06-13] MEDS: dexamethasone 20 MG in sodium chloride 0.9% 50 ML 187 MG IV (11:44)
[2020-06-13] MEDS: sodium chloride 0.9% 500 ML 999 ML IV (11:44)
[2020-06-13 11:46] LABS: Thyroid Stimulating Hormone 4.34 uIU/mL (0.27-4.20)
[2020-06-13 12:02] LABS: Estmated Average Glucose 148; Hemoglobin A1C 6.8 % (4.0-6.0)
[2020-06-14 09:10] LABS: PROTEIN, TOTAL 5.4 g/dL (6.1-8.1)
[2020-06-14 13:24] LABS: Quest SARS-CoV-2 RNA NOT DETECTED (NOT DETECTED)
[2020-06-14 14:25] LABS: ABNORMAL PROTEIN BAND 1 0.4 g/dL (NONE DETECTED); ABNORMAL PROTEIN BAND 2 0.1 g/dL (NONE DETECTED); ALBUMIN 3.2 g/dL (3.8-4.8); ALPHA 1 GLOBULIN 0.3 g/dL (0.2-0.3); ALPHA 2 GLOBULIN 0.7 g/dL (0.5-0.9); BETA 1 GLOBULIN 0.4 g/dL (0.4-0.6); BETA 2 GLOBULIN 0.2 g/dL (0.2-0.5); GAMMA GLOBULIN 0.6 g/dL (0.8-1.7)
[2020-06-14 15:00] LABS: KAPPA LIGHT CHAIN, FREE, SERUM 22.1 mg/L (3.3-19.4); KAPPA/LAMBDA LIGHT CHAINS FREE 0.09 (0.26-1.65); LAMBDA LIGHT CHAIN, FREE, SERU 251.9 mg/L (5.7-26.3)
--- NOTE | 2020-06-17 13:53 | ONC FU_ITS ---
[facility] Patient Note Patient: Valentin Clark Unit #: [id number]: [id number] Dictated By: Sue PatelDate of Visit: Jun 13, 2020 Onc MED Follow-Up/Prog Note Chief Complaint: Mulitple myeloma. 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 In March 2018 she had bumped her head at work and in the process of that she became aware of a small lump, though it was actually in a slightly different area. She then noticed that the lump was getting larger. Evaluation with head MRI on 06/07/2018 showed evidence of a right parietal occipital extra-axial neoplasm, felt to be most likely meningeal in origin. It was noted to exert mass effect on the right parietal and occipital lobes, but without associated midline shift or white matter parenchymal edema. The lesion was noted to invade through the calvarium and into the subcutaneous parietal occipital scalp soft tissues. The mass measured 5.7 x 3.5 x 6 cm. 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 The area of occlusion was noted to extend over approximately 4.3 cm. She was seen by Dr. Landry and subsequently referred for neurosurgery evaluation at [facility]. Initially they had considered possible surgical resection. Her further evaluation there apparently included laboratory findings which were suspicious for myeloma, and it was recommended that she have treatment with radiation. She was seen here for further management on 07/14/2018. She then returned to Dr. Landry, and on 07/20/2018 she underwent open biopsy/resection of the extracranial extent of the mass. 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 Her further evaluation included protein electrophoresis which showed an IgG lambda monoclonal protein in the serum quantitating at 0.48 g/dL. The serum free light chain assay showed elevated lambda light chain at 374.65 mg/L with decreased kappa/lambda ratio at 0.06. The 24-hour urine protein electrophoresis showed no monoclonal protein. There were no other areas of lytic bone involvement noted on her skeletal survey. Bone marrow aspiration/biopsy on 07/30/2018 showed a monotypic plasma cell population, but it comprised only 2% of the total cellularity. A FISH panel for myeloma was unrevealing, and the standard chromosome analysis was normal. She was referred to Dr. Kaur, and she began radiation to the lesion on 07/30/2018. She completed treatment on 09/02/2018 to a total dose of 5,000 cGy. She had evaluation with CT pulmonary angiogram on 09/14/2018. It showed moderate bilateral pulmonary embolic burden. She began on anticoagulation with apixaban. During her subsequent follow-up she continued to have an open wound at the site of the plasmacytoma in the parietal-occipital scalp region. As of her follow-up visit on 10/19/2018 her M protein was stable 0.37 g/dL. In the absence of any evidence of symptomatic myeloma, she had otherwise just continued on observation/expectant management. However, due to her persistent scalp wound she had a repeat brain MRI on 01/11/2019. It showed evidence of residual neoplastic process at the resection site. There was associated dural involvement but with improved signal characteristics and decreased enhancement compared to the study from September 2018. She was seen for a follow-up visit on 01/20/2019. In view of the MRI findings, she had further evaluation with PET/CT on 02/03/2019. It showed increase in size and expansile hypermetabolic lesion within the left ilium with extension of hypermetabolic tumor into the adjacent left iliac muscle. There was a new hypermetabolic lytic process within the right S1/S2 region. A large lytic mass within the posterior calvarium did not appear to have active hypermetabolism. Also noted, though, was a hypermetabolic lesion within the medullary canal of the distal left femoral diametaphysis and an additional hypermetabolic focus in the anterior cortex of the distal right femur concerning for additional areas of myeloma. In the setting of obvious progression of her myeloma, she was recommended to begin a trial of therapy with Velcade/Revlimid/dexamethasone. Her other medical illnesses include hypertension and degenerative arthritis/degenerative disease of the spine. She has associated cervical and lumbar spinal stenosis. She has a history of endometriosis, and she has anxiety/depression. She is a nonsmoker. INTERIM HISTORY: She began cycle 1 of VRd on 02/23/2019. At that time she also received an infusion of IV Zometa for the lytic bone involvement. At that time, there was a slight increase in her baseline creatinine level to 1.2 mg/dL, and it was opted to reduce her Revlimid dosage because of that. She experienced significant toxicity following her day 1 treatment, mainly having become listless and out of it over the next 4-5 days. She also lost her appetite. Her follow-up lab studies showed a drop in her calcium from baseline 10.3 mg/dL to 6.5 mg/dL with albumin 3.5 g/dL. With that finding, I did opt to hold her further Velcade, but she continued Revlimid and dexamethasone. As of 03/09/2019 she restarted treatment with Velcade at 1.3 mg/m??? weekly with Revlimid reduced to 15 mg daily on a 21/28 day schedule and the dexamethasone dosage reduced to 20 mg weekly. As of her day 15 visit, she was tolerating the treatment well. At that time she received the full dosage of Velcade, and she continued Revlimid 15 mg daily for 7 more days. She had subsequently developed diarrhea, and at her followup visit on 04/07/2019 her treatment was put on hold. She eventually continued with cycle 3 on 05/05/2019 with the Revlimid dosage further reduced to 10 mg daily on a 21/28 day schedule and with the Velcade and dexamethasone dosed weekly. Her repeat SPEP at that time showed residual M protein quantitating at 0.3 g/dL. The free light chain assay showed kappa light chain 100 mg/L, lambda light chain 122 mg/L, and kappa/lambda ratio 0.82. Her treatment was put on hold again at day 8 due to worsening neuropathy. She subsequently was able to continue the Revlimid and dexamethasone, but the Velcade remained on hold. Her repeat protein electrophoresis on 06/09/2019 showed stable M protein at 0.3 g/dL. The serum free light chain assay showed normal kappa/lambda ratio at 0.84. She was seen for a follow-up visit on 06/21/2019. At that point she appeared stable clinically. Her blood counts were adequate, and she continued with her 4th cycle of treatment. Her repeat protein electrophoresis on 07/13/2019 showed residual M protein quantitating at 0.2 g/dL. The free light chain assay showed elevated kappa light chain at 31.0 mg/L and elevated lambda light chain at 33.0 mg/L with normal kappa/lambda ratio at 0.94. Her 24-hour urine protein electrophoresis showed no detectable monoclonal protein. She was seen for a follow-up visit on 07/19/2019. At that point she complained of increased fatigue and excessive somnolence, and Dr Rodriguez did opt to put her treatment on hold. A subsequent restaging PET/CT showed no FDG avid sites of involvement. Her repeat head MRI on 08/10/2019 showed no evidence of recurrent or progressive disease. With those findings, Dr Rodriguez opted to transition her treatment to maintenance Revlimid at 5 mg daily, which she started following her visit on 08/17/2019. Her further laboratory studies on 09/22/2019 also showed a low B12 level at 189 pg/mL, and she subsequently started B12 replacement therapy. A sleep study in October 2019 showed moderate obstructive sleep apnea. At her follow-up visit on 11/28/2019 she was still mildly anemic, and transferrin saturation was still low at 17% despite being on oral iron replacement. As such, she was then given parenteral iron replacement with infusions of Injectafer on 11/28/2019 and on 12/05/2019. With the 11/28 visit she also was given denosumab 120 mg by subcutaneous injection for the lytic bone involvement. On 12/06/2019 she was admitted to the hospital with symptomatic hypocalcemia, serum calcium 5.9 mg/dL with albumin 2.9 g/dL. Renal function was stable with creatinine 1.0 mg/dL, but her potassium also was low at 3.2 mmol/L. She was given IV calcium and potassium replacement. She then continued further IV replacement as an outpatient. Despite that she was readmitted to the hospital with hypocalcemia on 12/15/2019. She was discharged home on 12/23/2019. Her evaluation included CT pulmonary angiogram which showed no evidence of pulmonary embolism. There was evidence of cardiomegaly, a small pericardial effusion, and small bilateral pleural effusions. Echocardiogram showed small, hemodynamically insignificant pericardial effusion and normal left ventricular function. She then returned here on 12/27/2019 and she has since then continued IV fluid and electrolyte replacement, daily for the first week and then on Mondays, Wednesdays, and Fridays. Despite that, she continued to feel weak and shaky, and she had ongoing complaints of nausea and anorexia. She continued to require IV fluid and electrolyte replacement but she did show gradual recovery. Her further treatment remained on hold. Repeat protein electrophoresis on 01/16/2020 showed stable M protein at 0.4 g/dL. The serum free light chain assay showed elevated free lambda light chain at 254 mg/L with decreased kappa/lambda ratio at 0.16. There was no monoclonal protein identified in the 24-hour urine protein electrophoresis. Restaging PET/CT on 02/24/2020 showed findings concerning for disease progression with new areas of marrow hypermetabolism within the right proximal humerus and within the bilateral distal femoral diametaphysis. The existing areas of involvement within the left ilium and sacrum showed further decrease in FDG uptake. With those findings, it was recommended that she proceed to second line treatment with daratumumab/dexamethasone. She was scheduled to come in last week for her initial infusion of daratumumab, but the treatment was deferred when she developed low-grade fever and other acute symptoms. She eventually was able to begin her initial infusion of daratumumab on 03/21/2020. Her repeat free light chain assay prior to that showed further increase in the lambda light chain to 537 mg/L with kappa/lambda ratio 0.06. She tolerated the daratumumab with no adverse effects, and she then continued treatment weekly. On 05/03/2020 she underwent EGD and colonoscopy by Dr. Jimenes. The EGD showed no significant abnormal findings, and the colonoscopy showed just 2 small polyps in the rectum. 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 As of 05/09/2020 she had completed her 8th infusion on the weekly schedule, and as of 05/16/2020 she received her 1st of 8 planned infusions at the 2-week interval. Her M protein at that point was stable at 0.4 g/dL. The free light chain assay showed a decrease in the free lambda light chain from 537.42 205.2 mg/L. Ms. Clark is here today for follow-up. She has various complaints. Her main concern today is that her [id number] tested positive for COVID-19. She states she was exposed to him on 06/05/2020. She states that she did wear a mask???it should be noted that she is wearing a cough mass today. She states she was only around 10 or 15 minutes and was not up and close to him. She does not share any food or drink with him. She states he is really not symptomatic and that he is not coughing much either. She states she goes through [employer] drive-through daily and [employer] multiple times a week but that is all she can think of as far as exposure risk. She states that she has been feeling really good except that she had sudden onset of fatigue on Thursday. She states it is came on out of nowhere. She states she been feeling really good but had a sudden onset of fatigue and states is been hard to get any of her chores done at all. She also stated that she had been having nausea since Thursday. She has had no emesis. She states she is short of breath and is worse with exertion - not a whole lot worse than what normally it is . She states that she has had a cold feeling in my chest . She states like if she had a cold. She states she is not coughing anything up. She does cough occasionally but nothing dramatic. This to just started recently. She also is complaining of right ankle pain. She has had skull pain which is believed somewhat with Tylenol. She also states that she feels her heartburn is worse. She continues to have home health twice a week for the scalp wound. Her ECOG is 1. She was informed of her recent MRI of the brain with and without contrast from 06/05/2020. Is noted that on the calvarium/scalp there is a large postoperative right parietal occipital resection and craniectomy site is again did not 5. Mild postoperative enhancement of the resection cavity and the adjacent calvarium. There is more enhancement at the resection site than on prior study. There is mild progressive enhancement at that adjacent dura. There are numerous additional enhancing capillary lesions demonstrating marked progression since 02/01/2020. The largest was previously described in the posterior right parietal bone measuring 2.2 cm increased in size from 0.9 cm. There are additional bilateral capillary lesions which are best seen at the post enhancement examination. Final impression was significant progression of myelomatous lesions within the skull since 02/01/2020. Numerous cavitary lesions are now present with the largest in the right parietal bone measuring 2.2 cm. Postoperative resection site in the posterior right parietal bone has slightly more enhancement and is slightly more dural enhancement. Suspicious for progression of neoplastic changes at the resection site. I discussed with Ms. Clark that this means that the wound she currently has will not be resectable or be a candidate for any surgery but she now has multiple lesions on the calvarium. We have discussed that we want to change her chemotherapy to add pomalidomide to her daratumumab. However I feel that we need to do COVID testing on her first and will that out given her multiple complaints with breathing and sudden onset fatigue. Past Medical History: Anxiety/depression Cervical stenosis Degenerative arthritis Degenerative disease of the spine Depression Endometriosis Hypertension Lumbar stenosis Past Surgical History: Bilateral cataract excisions Cholecystectomy/gastric stapling Removal of ovarian cyst x 2 Tonsillectomy Left subclavian venous access device???[place] [place] Allergies: BusPIRone HCl, Codeine and Related, Levaquin, and Morphine Derivatives. Medications: Acetaminophen 2 Tablet (of 500 mg) Oral PRN Bisacodyl 1 Tablet (of 5 mg) Tablet, enteric coated Oral daily Calcitriol 1 Capsule (of .25 mcg) Oral b.i.d. calicum 600 Tabminder (of 600 mg) Tablet Sublingual b.i.d. Cyclobenzaprine HCl 1 Tablet (of 5 mg) Oral PRN Dexamethasone (4 mg) Tablet Oral Take as Directed Eliquis 1 Tablet (of 2.5 mg) Oral b.i.d. FLUoxetine HCl 1 Capsule (of 20 mg) Oral daily Furosemide 1 - 2 Tablet (of 40 mg) Oral daily PRN GoodSense Stimulant Laxative 2 Tablet (of 8.6-50 mg) Oral t.i.d. PRN Loperamide A-D 1 Tablet (of 2 mg) Oral PRN Loratadine 1 Tablet (of 10 mg) Oral daily PRN LORazepam 1 Tablet (of 0.5 mg) Oral at bedtime Metoprolol Tartrate 0.5 Tablet (of 25 mg) Oral b.i.d. Ondansetron HCl 1 - 2 Tablet (of 4 mg) Oral PRN Pantoprazole Sodium 1 Tablet (of 40 mg) Tablet, enteric coated Oral b.i.d. Potassium Chloride ER 1 Tablet (of 20 meq) Tablet, controlled release Oral daily Probiotic Acidophilus 1 Capsule Tablet Oral b.i.d. traMADol HCl 1 Tablet (of 50 mg) Oral t.i.d. PRN Ventolin HFA Aerosol, solution Inhalation Vitamin D3 2 Capsule (of 2000 Units) Oral daily Family History: Ms. Clark's mother at age 84: emphysema, and congestive heart failure. Ms. Clark's father at age 53: heart disease, and myocardial infarction. Ms. Clark has 2 brothers: 1 alive, 1 . Ms. Clark's first brother's colon cancer, and type ii diabetes. Another brother's colon cancer. She has 2 sisters: 2 alive. Ms. Clark's first sister's herat disease, and type ii diabetes. Father of heart attack age 51. Mother with emphysema at age 78. She also had heart disease and diabetes. A sister has diabetes and heart disease. A brother has diabetes and he has been treated for colon cancer. A maternal uncle also had colon cancer, and a maternal aunt had breast cancer. 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 Ms. Clark has never smoked. She drinks occasionally. She is a nonsmoker. She has had just rare alcohol use. Review Of Symptoms: Vital Signs: Performed on Jun 13, 2020 10:03 Height - 63.50 in Weight - 191.6 lbs (LOW) BSA - 1.91 sq.m BMI - 33.41 (HIGH) Temperature - 96.3 F (LOW) Pulse - 74 /min Respiration - 18 /min BP - 141/70 mm(hg) (HIGH) O2 Sat - 95 % (LOW) Pain - 6,1 - No physically strenuous activity, but ambulatory and able to carry out light or sedentary work (e.g. office work, light house work). (ECOG) Physical Examination: Constitutional Alert, oriented, no acute distress. Skin pink, warm and dry. Head Normocephalic; atraumatic. Posterior scalp wound is healing well without exudate or redness. It remains open-covered with dressing. Eyes Conjunctivae and sclerae are clear and without icterus. Pupils are reactive and equal. Neck Supple without masses or thyromegaly. No jugular venous distension. Hematologic/Lymphatic No petechiae or purpura. No tender or palpable lymph nodes in the cervical or supraclavicular areas. Respiratory Lungs are clear to auscultation without rhonchi or wheezing. Cardiovascular Regular rate and rhythm of heart without murmurs,clicks, gallops or rubs. Chest left sided port-unremarkable. Abdomen Non-tender, non-distended, no masses, ascites. .Good bowel sounds noted in all quads. No guarding or rebound tenderness. No pulsatile masses. Back/Spine Non-tender to palpation. Extremities No visible deformities, no cyanosis, clubbing or edema. Musculoskeletal No tenderness or swelling. Integumentary No rashes or lesions. Neurologic No sensory or motor deficits, normal cerebellar function, normal-slow gait. Psychiatric Alert and oriented times three. Coherent speech. Verbalizes understanding of our discussions today. Laboratory:Test performed on Jun 13, 2020 08:32 Magnesium 1.7 mg/dL Sodium 140 mmol/L TSH 4.34 uIU/mL Potassium 4.0 mmol/L Chloride 107 mmol/L CO2 22 mmol/L Anion Gap 15.0 BUN 12 mg/dL Creatinine 1.1 mg/dL Cr Clearance (Est) 70.3000 mL/min eGFR 49.2 mL/min Glucose 102 mg/dL Calcium 9.4 mg/dL Protein, Total 5.6 g/dL Albumin 3.5 g/dL Globulin 2.1 g/dL Bilirubin, Total 0.4 mg/dL ALT (SGPT) 19 U/L AST (SGOT) 22 U/L Alkaline Phosphatase 77 IU/L Hemoglobin A1C % 6.8 % WBC 6.9 10 3/uL RBC 3.85 10 6/uL HGB 11.2 g/dL HCT 35.8 % MCV 93.0 fL MCH 29.1 pg MCHC 31.3 g/dL RDW 14.7 % Platelet Count 211 10 3/cmm MPV 11.9 fL Neutrophils 2.65 10 3/uL Lymphocytes 3.4 10 3/uL Monocytes 0.7 10 3/uL Eosinophils 0.1 10 3/uL Basophils 0.1 10 3/uL Neutrophil % 38.5 % Lymphocyte % 49.6 % Monocyte % 9.8 % Eosinophil % 1.0 % Basophils % 1.0 % NRBC % 0 % IgG 659 mg/dL IgA < 50 mg/dL IgM < 25 mg/dL Test performed on May 01, 2020 10:50 Manual Monocytes Abs 0.7 10 3/cmm Manual Lymphs % 27 % Manual Monos % 11.0 % Total Cells Counted 100 Test performed on Apr 24, 2020 09:45 Manual Bands 20.9 % Manual Eosinophils 0.5 % Manual Basophils 1.2 % Test performed on Mar 13, 2020 08:05 ESR (Sed Rate) 17 mm/hr Test performed on Feb 20, 2020 09:15 Phosphorus 2.3 mg/dL Test performed on Jan 16, 2020 14:00 NT proBNP 1439 pg/mL Homocysteine 7.04 umol/L LDH (Total) 80 U/L Methylmalonic Acid 79 nmol/L Vitamin B12 1566 pg/mL [place] Free Light Chains 40.4 mg/L [place]/Lambda Free Ratio 0.16 Test performed on Jan 02, 2020 09:16 Vitamin D (25-Hydroxy), Total 22 ng/mL Impression: 1. 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 She underwent resection/open biopsy of the extracranial portion of the mass on 07/20/2018. 2. She then underwent radiation, completed on 09/02/2018 to a total dose of 5000 cGy. 3. She has persistent open wound at the biopsy site. 4. She had associated IgG lambda monoclonal protein in the serum and 2% monoclonal plasma cells in the bone marrow, consistent with underlying myeloma. Initially it appeared to otherwise not be symptomatic. 5. She was found to have pulmonary emboli by CT pulmonary angiogram on 09/14/2018. She began anticoagulation with apixaban. Her other medical illnesses include: 6. Degenerative arthritis and degenerative disease of the spine with associated cervical and lumbar spinal stenosis. 7. Hypertension. 8. Endometriosis. 9. Anxiety/depression. During subsequent followup she had increasing pain in the left hip/buttock area. Her repeat protein electrophoresis studies showed only a slight increase in her M protein, but her repeat PET/CT on 02/03/2019 showed significant progression of lytic bone involvement in the left ilium. There was also possible involvement in the distal right femur. The area of lytic involvement in the calvarium was not metabolically active. On 02/23/2019 she began cycle 1 of Velcade/Revlimid/dexamethasone. She also was given an infusion of Zometa for the lytic bone involvement. Her treatment was complicated by [employer] toxicity and hypocalcemia. Her Velcade was put on hold. She stopped the Revlimid and dexamethasone as of 03/02/2019. At that point she was still having significant pain associated with the lytic bone involvement in the left ileum. During subsequent follow-up, the hypocalcemia improved. As of 03/09/2019 she was able to restart treatment with dose reductions in the Revlimid and dexamethasone. She had remained mildly anemic, but that appeared to be due to iron deficiency. As of her cycle 2 day 15 visit, she appeared to be doing well, and she continued to her treatment as scheduled. Subsequent to that visit, she developed severe diarrhea, and her treatment was put on hold. She continued with cycle 3 on 05/05/2019. She was given a further reduction in the Revlimid dosage to 10 mg daily on a 21/ day schedule with the Velcade and dexamethasone dosed weekly. Her treatment was put on hold at day 8 due to worsening neuropathy. She subsequently was able to continue treatment with Revlimid/dexamethasone, but the Velcade remained on hold. She then continued with cycle 4 on 06/21/2019. As of her follow-up visit on 07/19/2019 her treatment was put on hold due to multiple complaints, the most significant being increased fatigue and excessive somnolence. A subsequent restaging PET/CT showed no active sites of involvement. She continued, though, to have severe fatigue/somnolence despite adjustments in her medication regimen. She also continued to have significant musculoskeletal pain, and she had a persistent open wound in the area of the vertex of her scalp. Her repeat head MRI on 08/10/2019 showed no evidence of recurrent or progressive disease. With those findings, her treatment was transitioned to maintenance Revlimid at 5 mg daily, which she started following her visit on 08/17/2019. As of her followup visit on 11/28/2019 she appeared to be tolerating the maintenance Revlimid with acceptable toxicity, and there had been no obvious progression of the myeloma. During that time she was found to have B12 deficiency, and she had been showing some improvement with B12 replacement. However, at that point she still had mild anemia, and her transferrin saturation and ferritin levels were consistent with iron deficiency despite the fact that she had been on oral iron supplementation. She was given parenteral iron replacement with 2 infusions of Injectafer. She also was given denosumab 120 mg by subcutaneous injection for the lytic bone involvement. On 12/06/2019 she was admitted to the hospital with symptomatic hypocalcemia. She also had hypokalemia and hyperphosphatemia. I was uncertain to what extent those abnormalities were due to the Injectafer, to the denosumab, or both. However, she continued to have persistent symptomatic hypocalcemia and hyperphosphatemia despite having both IV or oral replacement, and she required hospital admission again on 12/15/2019. During this time there was a significant in her performance status. She also developed shortness of breath and hypoxia. A specific cause for that was not determined. Following her hospitalization she continued outpatient IV fluid and electrolyte replacement along with oral calcium and vitamin D supplements. However, she did show gradual recovery with resolution of the hypocalcemia/hyperphosphatemia and she also had gradual improvement in her performance status. Her protein electrophoresis studies in January did show evidence of progression of her myeloma with increasing free lambda light chain and her restaging PET/CT in February also showed findings suspicious for disease progression. She did not appear to be overtly symptomatic, but with evidence of disease progression, she was recommended to begin second line treatment with daratumumab/dexamethasone. Her treatment was delayed after she developed fever and other symptoms, but she eventually did start treatment with daratumumab/dexamethasone on 03/21/2020. Her repeat free light chain assay prior to that had shown further increase in the lambda free light chain to 537 mg/L with kappa/lambda ratio 0.06. She tolerated the initial daratumumab infusion with no adverse effects, and she has been able to continue treatment weekly. She is currently at week 8. She does appear to be showing some gradual improvement in her performance status, though she continues to have significant GI symptoms and she still has nonhealing wound in her scalp. In addition, the second lesion in the calvarium has not yet been addressed. Plan: 1. Proceed with treatment #3 of 8 every 2 week treatments of daratumumab with same premeds. 2. She will take dexamethasone today and tomorrow as scheduled. 3. Labs from today were reviewed in detail and discussed with Ms. Clark and a copy was given to her. WBC 6.9 , hemoglobin 11.2, platelets 211,000, ANC is 2600 potassium 4.0 creatinine 1.1 LFTs are normal. 4. EGD from 05/03/[address] Jimenes was unremarkable there were no abnormalities seen in the esophagus the GE junction and the whole stomach with unspecified abnormality noted consistent abnormal curvature of the stomach absent which is consistent with a history of gastric bypass no acute lesions or ulcerations. The duodenum was examined and no abnormalities were seen. She did also have colonoscopy on 05/03/2020 in the rectum there was 1 polyp ranging in size from 2 mm to 4 mm it was hyperplastic in appearance and was sent for biopsy- the final pathology is pending. 4. We will plan for her to return in 2 weeks for cycle 4 day 15 daratumumab (#4 of 8 every two week treatments). I have asked for a CBC and CMP at that time. Her myeloma labs from today are currently pending. 5. 5. Going to set her up for a PET CT restaging. Her last PET/CT was July 2019. Although she has multiple calvarial lesions it would be nice to know what the remainder of her skeleton looks like. She was reminded to make sure that her blood sugars are less than 200 preferably less than 150 on the day of her PET scan. She is aware that this will not change her current treatment plan , but it will give us more information for monitoring her disease response. 6. Ms. Clark was instructed to contact us in the interim should questions or problems arise. 7. Will await COVID 19 testing if it is negative, we will pursue with her pomalidomide prescription I do plan to start her on a smaller dose and taper up as tolerated. She has had significant problems started chemotherapy in the past. Once we have results on the [facility] it should be early next week. We will call her to let her know the results and get her started on chemotherapy or where the plan of treatment will be at that time. 8. Plan to increase her Protonix to 40 twice daily or may switch her to Prevacid 20 mg twice daily whichever she prefers at this time. I am going to give her an IV dose of Botox today to see if this will settle down the heartburn today. 9. I did offer to x-ray her right ankle but she states she wants to wait on that for now. Signed By: Sue Patel-, [facility] Ruiz Rodriguez MD <<Signature on File>>
== END 2020-06-13 08:09 | disposition home or self-care (01) ==
LOC: ONCMED 08:12
PROVIDERS: PCP Electrodiagnostic Medicine; Visit Provider Nurse Practitioner
DX: Z51.12 Encounter for antineoplastic immunotherapy (principal); Z11.59 Encounter for screening for other viral diseases; C90.00 Multiple myeloma not having achieved remission; R53.83 Other fatigue; R09.89 Other specified symptoms and signs involving the circulatory and respiratory systems; R73.9 Hyperglycemia, unspecified; K63.5 Polyp of colon; M48.061 Spinal stenosis, lumbar region without neurogenic claudication; M48.02 Spinal stenosis, cervical region; I10 Essential (primary) hypertension; N80.9 Endometriosis, unspecified; F41.8 Other specified anxiety disorders; Z92.3 Personal history of irradiation; Z86.711 Personal history of pulmonary embolism; Z79.01 Long term (current) use of anticoagulants; Z79.899 Other long term (current) drug therapy; Z79.52 Long term (current) use of systemic steroids
CPT/HCPCS: 36415; 80053; 82784; 83036; 83735; 83883; 84155; 84165; 84443; 85025; 87635; 96367; 96413; 96415; 99214; J1100; J1200; J7030; J7040; J9145

== ENCOUNTER 2020-06-20 08:58 | Outpatient (CLI) | payer MEDICARE, SELFPAY ==
[2020-06-20] MEDS: pantoprazole 40 mg SDV IV (10:17)
[2020-06-20] MEDS: sodium chloride 0.9% 1,000 ML 999 ML IV (11:01)
[2020-06-20] MEDS: acetaminophen 325 mg Tablet 650 MG PO (12:00)
--- NOTE | 2020-06-24 17:10 | ONC FU_ITS ---
[facility] Patient Note Patient: Valentin Clark Unit #: [id number]: [id number] Dictated By: Sue PatelDate of Visit: Jun 20, 2020 Onc MED Follow-Up/Prog Note Chief Complaint: Mulitple myeloma. 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 In March 2018 she had bumped her head at work and in the process of that she became aware of a small lump, though it was actually in a slightly different area. She then noticed that the lump was getting larger. Evaluation with head MRI on 06/07/2018 showed evidence of a right parietal occipital extra-axial neoplasm, felt to be most likely meningeal in origin. It was noted to exert mass effect on the right parietal and occipital lobes, but without associated midline shift or white matter parenchymal edema. The lesion was noted to invade through the calvarium and into the subcutaneous parietal occipital scalp soft tissues. The mass measured 5.7 x 3.5 x 6 cm. 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 The area of occlusion was noted to extend over approximately 4.3 cm. She was seen by Dr. Landry and subsequently referred for neurosurgery evaluation at [facility]. Initially they had considered possible surgical resection. Her further evaluation there apparently included laboratory findings which were suspicious for myeloma, and it was recommended that she have treatment with radiation. She was seen here for further management on 07/14/2018. She then returned to Dr. Landry, and on 07/20/2018 she underwent open biopsy/resection of the extracranial extent of the mass. 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 Her further evaluation included protein electrophoresis which showed an IgG lambda monoclonal protein in the serum quantitating at 0.48 g/dL. The serum free light chain assay showed elevated lambda light chain at 374.65 mg/L with decreased kappa/lambda ratio at 0.06. The 24-hour urine protein electrophoresis showed no monoclonal protein. There were no other areas of lytic bone involvement noted on her skeletal survey. Bone marrow aspiration/biopsy on 07/30/2018 showed a monotypic plasma cell population, but it comprised only 2% of the total cellularity. A FISH panel for myeloma was unrevealing, and the standard chromosome analysis was normal. She was referred to Dr. Kaur, and she began radiation to the lesion on 07/30/2018. She completed treatment on 09/02/2018 to a total dose of 5,000 cGy. She had evaluation with CT pulmonary angiogram on 09/14/2018. It showed moderate bilateral pulmonary embolic burden. She began on anticoagulation with apixaban. During her subsequent follow-up she continued to have an open wound at the site of the plasmacytoma in the parietal-occipital scalp region. As of her follow-up visit on 10/19/2018 her M protein was stable 0.37 g/dL. In the absence of any evidence of symptomatic myeloma, she had otherwise just continued on observation/expectant management. However, due to her persistent scalp wound she had a repeat brain MRI on 01/11/2019. It showed evidence of residual neoplastic process at the resection site. There was associated dural involvement but with improved signal characteristics and decreased enhancement compared to the study from September 2018. She was seen for a follow-up visit on 01/20/2019. In view of the MRI findings, she had further evaluation with PET/CT on 02/03/2019. It showed increase in size and expansile hypermetabolic lesion within the left ilium with extension of hypermetabolic tumor into the adjacent left iliac muscle. There was a new hypermetabolic lytic process within the right S1/S2 region. A large lytic mass within the posterior calvarium did not appear to have active hypermetabolism. Also noted, though, was a hypermetabolic lesion within the medullary canal of the distal left femoral diametaphysis and an additional hypermetabolic focus in the anterior cortex of the distal right femur concerning for additional areas of myeloma. In the setting of obvious progression of her myeloma, she was recommended to begin a trial of therapy with Velcade/Revlimid/dexamethasone. Her other medical illnesses include hypertension and degenerative arthritis/degenerative disease of the spine. She has associated cervical and lumbar spinal stenosis. She has a history of endometriosis, and she has anxiety/depression. She is a nonsmoker. INTERIM HISTORY: She began cycle 1 of VRd on 02/23/2019. At that time she also received an infusion of IV Zometa for the lytic bone involvement. At that time, there was a slight increase in her baseline creatinine level to 1.2 mg/dL, and it was opted to reduce her Revlimid dosage because of that. She experienced significant toxicity following her day 1 treatment, mainly having become listless and out of it over the next 4-5 days. She also lost her appetite. Her follow-up lab studies showed a drop in her calcium from baseline 10.3 mg/dL to 6.5 mg/dL with albumin 3.5 g/dL. With that finding, I did opt to hold her further Velcade, but she continued Revlimid and dexamethasone. As of 03/09/2019 she restarted treatment with Velcade at 1.3 mg/m??? weekly with Revlimid reduced to 15 mg daily on a 21/28 day schedule and the dexamethasone dosage reduced to 20 mg weekly. As of her day 15 visit, she was tolerating the treatment well. At that time she received the full dosage of Velcade, and she continued Revlimid 15 mg daily for 7 more days. She had subsequently developed diarrhea, and at her followup visit on 04/07/2019 her treatment was put on hold. She eventually continued with cycle 3 on 05/05/2019 with the Revlimid dosage further reduced to 10 mg daily on a 21/28 day schedule and with the Velcade and dexamethasone dosed weekly. Her repeat SPEP at that time showed residual M protein quantitating at 0.3 g/dL. The free light chain assay showed kappa light chain 100 mg/L, lambda light chain 122 mg/L, and kappa/lambda ratio 0.82. Her treatment was put on hold again at day 8 due to worsening neuropathy. She subsequently was able to continue the Revlimid and dexamethasone, but the Velcade remained on hold. Her repeat protein electrophoresis on 06/09/2019 showed stable M protein at 0.3 g/dL. The serum free light chain assay showed normal kappa/lambda ratio at 0.84. She was seen for a follow-up visit on 06/21/2019. At that point she appeared stable clinically. Her blood counts were adequate, and she continued with her 4th cycle of treatment. Her repeat protein electrophoresis on 07/13/2019 showed residual M protein quantitating at 0.2 g/dL. The free light chain assay showed elevated kappa light chain at 31.0 mg/L and elevated lambda light chain at 33.0 mg/L with normal kappa/lambda ratio at 0.94. Her 24-hour urine protein electrophoresis showed no detectable monoclonal protein. She was seen for a follow-up visit on 07/19/2019. At that point she complained of increased fatigue and excessive somnolence, and Dr Rodriguez did opt to put her treatment on hold. A subsequent restaging PET/CT showed no FDG avid sites of involvement. Her repeat head MRI on 08/10/2019 showed no evidence of recurrent or progressive disease. With those findings, Dr Rodriguez opted to transition her treatment to maintenance Revlimid at 5 mg daily, which she started following her visit on 08/17/2019. Her further laboratory studies on 09/22/2019 also showed a low B12 level at 189 pg/mL, and she subsequently started B12 replacement therapy. A sleep study in October 2019 showed moderate obstructive sleep apnea. At her follow-up visit on 11/28/2019 she was still mildly anemic, and transferrin saturation was still low at 17% despite being on oral iron replacement. As such, she was then given parenteral iron replacement with infusions of Injectafer on 11/28/2019 and on 12/05/2019. With the 11/28 visit she also was given denosumab 120 mg by subcutaneous injection for the lytic bone involvement. On 12/06/2019 she was admitted to the hospital with symptomatic hypocalcemia, serum calcium 5.9 mg/dL with albumin 2.9 g/dL. Renal function was stable with creatinine 1.0 mg/dL, but her potassium also was low at 3.2 mmol/L. She was given IV calcium and potassium replacement. She then continued further IV replacement as an outpatient. Despite that she was readmitted to the hospital with hypocalcemia on 12/15/2019. She was discharged home on 12/23/2019. Her evaluation included CT pulmonary angiogram which showed no evidence of pulmonary embolism. There was evidence of cardiomegaly, a small pericardial effusion, and small bilateral pleural effusions. Echocardiogram showed small, hemodynamically insignificant pericardial effusion and normal left ventricular function. She then returned here on 12/27/2019 and she has since then continued IV fluid and electrolyte replacement, daily for the first week and then on Mondays, Wednesdays, and Fridays. Despite that, she continued to feel weak and shaky, and she had ongoing complaints of nausea and anorexia. She continued to require IV fluid and electrolyte replacement but she did show gradual recovery. Her further treatment remained on hold. Repeat protein electrophoresis on 01/16/2020 showed stable M protein at 0.4 g/dL. The serum free light chain assay showed elevated free lambda light chain at 254 mg/L with decreased kappa/lambda ratio at 0.16. There was no monoclonal protein identified in the 24-hour urine protein electrophoresis. Restaging PET/CT on 02/24/2020 showed findings concerning for disease progression with new areas of marrow hypermetabolism within the right proximal humerus and within the bilateral distal femoral diametaphysis. The existing areas of involvement within the left ilium and sacrum showed further decrease in FDG uptake. With those findings, it was recommended that she proceed to second line treatment with daratumumab/dexamethasone. She was scheduled to come in last week for her initial infusion of daratumumab, but the treatment was deferred when she developed low-grade fever and other acute symptoms. She eventually was able to begin her initial infusion of daratumumab on 03/21/2020. Her repeat free light chain assay prior to that showed further increase in the lambda light chain to 537 mg/L with kappa/lambda ratio 0.06. She tolerated the daratumumab with no adverse effects, and she then continued treatment weekly. On 05/03/2020 she underwent EGD and colonoscopy by Dr. Jimenes. The EGD showed no significant abnormal findings, and the colonoscopy showed just 2 small polyps in the rectum. 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 As of 05/09/2020 she had completed her 8th infusion on the weekly schedule, and as of 05/16/2020 she received her 1st of 8 planned infusions at the 2-week interval. Her M protein at that point was stable at 0.4 g/dL. The free light chain assay showed a decrease in the free lambda light chain from 537.42 205.2 mg/L. She was informed of her recent MRI of the brain with and without contrast from 06/05/2020. Is noted that on the calvarium/scalp there is a large postoperative right parietal occipital resection and craniectomy site is again did not 5. Mild postoperative enhancement of the resection cavity and the adjacent calvarium. There is more enhancement at the resection site than on prior study. There is mild progressive enhancement at that adjacent dura. There are numerous additional enhancing capillary lesions demonstrating marked progression since 02/01/2020. The largest was previously described in the posterior right parietal bone measuring 2.2 cm increased in size from 0.9 cm. There are additional bilateral capillary lesions which are best seen at the post enhancement examination. Final impression was significant progression of myelomatous lesions within the skull since 02/01/2020. Numerous cavitary lesions are now present with the largest in the right parietal bone measuring 2.2 cm. Postoperative resection site in the posterior right parietal bone has slightly more enhancement and is slightly more dural enhancement. Suspicious for progression of neoplastic changes at the resection site. It was discussed with Ms. Clark that this means that the wound she currently has will not be resectable or be a candidate for any surgery as she now has multiple lesions on the calvarium. We have discussed that we want to change her chemotherapy to add pomalidomide to her daratumumab. Mrs. Clark did have COVID-19 testing on June 13, 2020. It was negative. She is here today for follow-up. Once again she has multiple complaints most bothersome being the diarrhea. The diarrhea is not new to her she states really no worse than normal but is still there. When I asked her about what antidiarrheal she is taking and how she is taking them I get the answer that I forget to take them . He seems that they do help when she does take them although she is very consistent with taking them. States her appetite kind of comes and goes based on the diarrhea. She has been using coconut oil on her arms due to bug bites and some bruising. She states she does have a lot of belching when she eats. She has had some acid reflux but nothing significant to her knowledge. She states the belching is just to the point where it is uncontrollable and embarrassing . She denies any other pain. She has had no lower extremity edema or orthopnea. She denies any palpitations. She denies any new abdominal pain. She has had no lower extremity pain. She denies orthopnea. She denies angina. Her ECOG is 1. Past Medical History: Anxiety/depression Cervical stenosis Degenerative arthritis Degenerative disease of the spine Depression Endometriosis Hypertension Lumbar stenosis Past Surgical History: Bilateral cataract excisions Cholecystectomy/gastric stapling Removal of ovarian cyst x 2 Tonsillectomy Left subclavian venous access device[place] [place] Allergies: BusPIRone HCl, Codeine and Related, Levaquin, and Morphine Derivatives. Medications: Acetaminophen 2 Tablet (of 500 mg) Oral PRN Bisacodyl 1 Tablet (of 5 mg) Tablet, enteric coated Oral daily Calcitriol 1 Capsule (of .25 mcg) Oral b.i.d. calicum 600 Tabminder (of 600 mg) Tablet Sublingual b.i.d. Cyclobenzaprine HCl 1 Tablet (of 5 mg) Oral PRN Dexamethasone (4 mg) Tablet Oral Take as Directed Eliquis 1 Tablet (of 2.5 mg) Oral b.i.d. FLUoxetine HCl 1 Capsule (of 20 mg) Oral daily Furosemide 1 - 2 Tablet (of 40 mg) Oral daily PRN GoodSense Stimulant Laxative 2 Tablet (of 8.6-50 mg) Oral t.i.d. PRN Loperamide A-D 1 Tablet (of 2 mg) Oral PRN Loratadine 1 Tablet (of 10 mg) Oral daily PRN LORazepam 1 Tablet (of 0.5 mg) Oral at bedtime Metoprolol Tartrate 0.5 Tablet (of 25 mg) Oral b.i.d. Ondansetron HCl 1 - 2 Tablet (of 4 mg) Oral PRN Pantoprazole Sodium 1 Tablet (of 40 mg) Tablet, enteric coated Oral b.i.d. Potassium Chloride ER 1 Tablet (of 20 meq) Tablet, controlled release Oral daily Probiotic Acidophilus 1 Capsule Tablet Oral b.i.d. traMADol HCl 1 Tablet (of 50 mg) Oral t.i.d. PRN Ventolin HFA Aerosol, solution Inhalation Vitamin D3 2 Capsule (of 2000 Units) Oral daily Family History: Ms. Clark's mother at age 84: emphysema, and congestive heart failure. Ms. Clark's father at age 53: heart disease, and myocardial infarction. Ms. Clark has 2 brothers: 1 alive, 1 . Ms. Clark's first brother's colon cancer, and type ii diabetes. Another brother's colon cancer. She has 2 sisters: 2 alive. Ms. Clark's first sister's herat disease, and type ii diabetes. Father of heart attack age 51. Mother with emphysema at age 78. She also had heart disease and diabetes. A sister has diabetes and heart disease. A brother has diabetes and he has been treated for colon cancer. A maternal uncle also had colon cancer, and a maternal aunt had breast cancer. 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 Ms. Clark has never smoked. She drinks occasionally. She is a nonsmoker. She has had just rare alcohol use. Review Of Symptoms: Constitutional Denies fevers, chills, night sweats. Has fatigue. Allergic/Immunologic No reactions. Eyes Denies significant visual changes. No diplopia. No amaurosis. ENMT Denies changes in hearing, sore throat, mouth sores, difficulty or changes in swallowing ability, and/or sinus drainage. Endocrine No diabetes, thyroid disease or hormone replacement. Denies hot flashes or night sweats. Hematologic/Lymphatic Denies easy bruising or bleeding. The patient denies any tender or palpable lymph nodes. Respiratory Denies any new dyspnea on exertion, chest pain, cough or hemoptysis. Denies orthopnea. Cardiovascular Denies anginal chest pain, palpitations or orthopnea. Gastrointestinal Denies nausea, vomiting, GI bleeding, or constipation. She states she had diarrhea still but no worse. No form to the stools at all . Diarrhea better today but still unformed, watery stool. She states she forgets to take the antidiarrheal medicine. She states she has alot of belching worse after she eats. May be some heartburn at times. Genitourinary (F) No hematuria, hesitancy, incontinence, vaginal bleeding, discharge or other problems with urination. Musculoskeletal Denies joint pain, swelling or redness. No decreased range of motion. Integumentary Denies chronic rashes, inflammation, ulcerations or skin changes. Neurologic Denies headache, blurred vision, and no areas of focal weakness or numbness. Normal gait. No sensory problems. Psychiatric Denies insomnia, depression, olivia or mood swings. Vital Signs: Performed on Jun 20, 2020 09:04 Height - 63.50 in Weight - 197.2 lbs (HIGH) BSA - 1.93 sq.m BMI - 34.38 (HIGH) Temperature - 97.1 F (LOW) Pulse - 72 /min Respiration - 19 /min BP - 127/64 mm(hg) O2 Sat - 96 % Pain - 0,1 - No physically strenuous activity, but ambulatory and able to carry out light or sedentary work (e.g. office work, light house work). (ECOG) Physical Examination: Constitutional Alert, oriented, no acute distress. Skin pink, warm and dry. Head Normocephalic; atraumatic. Posterior scalp wound is healing well without exudate or redness. It remains open-covered with dressing. Eyes Conjunctivae and sclerae are clear and without icterus. Pupils are reactive and equal. Neck Supple without masses or thyromegaly. No jugular venous distension. Hematologic/Lymphatic No petechiae or purpura. No tender or palpable lymph nodes in the cervical or supraclavicular areas. Respiratory Lungs are clear to auscultation without rhonchi or wheezing. Cardiovascular Regular rate and rhythm of heart without murmurs,clicks, gallops or rubs. Chest left sided port-unremarkable. Abdomen Non-tender, non-distended, no masses, ascites. .Good bowel sounds noted in all quads. No guarding or rebound tenderness. No pulsatile masses. Back/Spine Non-tender to palpation. Extremities No visible deformities, no cyanosis, clubbing or edema. Musculoskeletal No tenderness or swelling. Integumentary No rashes or lesions. Neurologic No sensory or motor deficits, normal cerebellar function, normal-slow gait. Psychiatric Alert and oriented times three. Coherent speech. Verbalizes understanding of our discussions today. Laboratory:Test performed on Jun 13, 2020 08:32 Magnesium 1.7 mg/dL Sodium 140 mmol/L TSH 4.34 uIU/mL Potassium 4.0 mmol/L Chloride 107 mmol/L CO2 22 mmol/L Anion Gap 15.0 BUN 12 mg/dL Creatinine 1.1 mg/dL Cr Clearance (Est) 70.3000 mL/min eGFR 49.2 mL/min Glucose 102 mg/dL Calcium 9.4 mg/dL Protein, Total 5.6 g/dL Albumin 3.5 g/dL Globulin 2.1 g/dL Bilirubin, Total 0.4 mg/dL ALT (SGPT) 19 U/L AST (SGOT) 22 U/L Alkaline Phosphatase 77 IU/L Hemoglobin A1C % 6.8 % WBC 6.9 10 3/uL RBC 3.85 10 6/uL HGB 11.2 g/dL HCT 35.8 % MCV 93.0 fL MCH 29.1 pg MCHC 31.3 g/dL RDW 14.7 % Platelet Count 211 10 3/cmm MPV 11.9 fL Neutrophils 2.65 10 3/uL Lymphocytes 3.4 10 3/uL Monocytes 0.7 10 3/uL Eosinophils 0.1 10 3/uL Basophils 0.1 10 3/uL Neutrophil % 38.5 % Lymphocyte % 49.6 % Monocyte % 9.8 % Eosinophil % 1.0 % Basophils % 1.0 % NRBC % 0 % IgG 659 mg/dL IgA < 50 mg/dL IgM < 25 mg/dL Test performed on May 01, 2020 10:50 Manual Monocytes Abs 0.7 10 3/cmm Manual Lymphs % 27 % Manual Monos % 11.0 % Total Cells Counted 100 Test performed on Apr 24, 2020 09:45 Manual Bands 20.9 % Manual Eosinophils 0.5 % Manual Basophils 1.2 % Test performed on Mar 13, 2020 08:05 ESR (Sed Rate) 17 mm/hr Test performed on Feb 20, 2020 09:15 Phosphorus 2.3 mg/dL Test performed on Jan 16, 2020 14:00 NT proBNP 1439 pg/mL Homocysteine 7.04 umol/L LDH (Total) 80 U/L Methylmalonic Acid 79 nmol/L Vitamin B12 1566 pg/mL [place] Free Light Chains 40.4 mg/L [place]/Lambda Free Ratio 0.16 Test performed on Jan 02, 2020 09:16 Vitamin D (25-Hydroxy), Total 22 ng/mL Impression: 1. 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 She underwent resection/open biopsy of the extracranial portion of the mass on 07/20/2018. 2. She then underwent radiation, completed on 09/02/2018 to a total dose of 5000 cGy. 3. She has persistent open wound at the biopsy site. 4. She had associated IgG lambda monoclonal protein in the serum and 2% monoclonal plasma cells in the bone marrow, consistent with underlying myeloma. Initially it appeared to otherwise not be symptomatic. 5. She was found to have pulmonary emboli by CT pulmonary angiogram on 09/14/2018. She began anticoagulation with apixaban. Her other medical illnesses include: 6. Degenerative arthritis and degenerative disease of the spine with associated cervical and lumbar spinal stenosis. 7. Hypertension. 8. Endometriosis. 9. Anxiety/depression. During subsequent followup she had increasing pain in the left hip/buttock area. Her repeat protein electrophoresis studies showed only a slight increase in her M protein, but her repeat PET/CT on 02/03/2019 showed significant progression of lytic bone involvement in the left ilium. There was also possible involvement in the distal right femur. The area of lytic involvement in the calvarium was not metabolically active. On 02/23/2019 she began cycle 1 of Velcade/Revlimid/dexamethasone. She also was given an infusion of Zometa for the lytic bone involvement. Her treatment was complicated by [employer] AIDE toxicity and hypocalcemia. Her Velcade was put on hold. She stopped the Revlimid and dexamethasone as of 03/02/2019. At that point she was still having significant pain associated with the lytic bone involvement in the left ileum. During subsequent follow-up, the hypocalcemia improved. As of 03/09/2019 she was able to restart treatment with dose reductions in the Revlimid and dexamethasone. She had remained mildly anemic, but that appeared to be due to iron deficiency. As of her cycle 2 day 15 visit, she appeared to be doing well, and she continued to her treatment as scheduled. Subsequent to that visit, she developed severe diarrhea, and her treatment was put on hold. She continued with cycle 3 on 05/05/2019. She was given a further reduction in the Revlimid dosage to 10 mg daily on a 21/28 day schedule with the Velcade and dexamethasone dosed weekly. Her treatment was put on hold at day 8 due to worsening neuropathy. She subsequently was able to continue treatment with Revlimid/dexamethasone, but the Velcade remained on hold. She then continued with cycle 4 on 06/21/2019. As of her follow-up visit on 07/19/2019 her treatment was put on hold due to multiple complaints, the most significant being increased fatigue and excessive somnolence. A subsequent restaging PET/CT showed no active sites of involvement. She continued, though, to have severe fatigue/somnolence despite adjustments in her medication regimen. She also continued to have significant musculoskeletal pain, and she had a persistent open wound in the area of the vertex of her scalp. Her repeat head MRI on 08/10/2019 showed no evidence of recurrent or progressive disease. With those findings, her treatment was transitioned to maintenance Revlimid at 5 mg daily, which she started following her visit on 08/17/2019. As of her followup visit on 11/28/2019 she appeared to be tolerating the maintenance Revlimid with acceptable toxicity, and there had been no obvious progression of the myeloma. During that time she was found to have B12 deficiency, and she had been showing some improvement with B12 replacement. However, at that point she still had mild anemia, and her transferrin saturation and ferritin levels were consistent with iron deficiency despite the fact that she had been on oral iron supplementation. She was given parenteral iron replacement with 2 infusions of Injectafer. She also was given denosumab 120 mg by subcutaneous injection for the lytic bone involvement. On 12/06/2019 she was admitted to the hospital with symptomatic hypocalcemia. She also had hypokalemia and hyperphosphatemia. I was uncertain to what extent those abnormalities were due to the Injectafer, to the denosumab, or both. However, she continued to have persistent symptomatic hypocalcemia and hyperphosphatemia despite having both IV or oral replacement, and she required hospital admission again on 12/15/2019. During this time there was a significant in her performance status. She also developed shortness of breath and hypoxia. A specific cause for that was not determined. Following her hospitalization she continued outpatient IV fluid and electrolyte replacement along with oral calcium and vitamin D supplements. However, she did show gradual recovery with resolution of the hypocalcemia/hyperphosphatemia and she also had gradual improvement in her performance status. Her protein electrophoresis studies in January did show evidence of progression of her myeloma with increasing free lambda light chain and her restaging PET/CT in February also showed findings suspicious for disease progression. She did not appear to be overtly symptomatic, but with evidence of disease progression, she was recommended to begin second line treatment with daratumumab/dexamethasone. Her treatment was delayed after she developed fever and other symptoms, but she eventually did start treatment with daratumumab/dexamethasone on 03/21/2020. Her repeat free light chain assay prior to that had shown further increase in the lambda free light chain to 537 mg/L with kappa/lambda ratio 0.06. She tolerated the initial daratumumab infusion with no adverse effects, and she has been able to continue treatment weekly. She is currently at week 8. She does appear to be showing some gradual improvement in her performance status, though she continues to have significant GI symptoms and she still has nonhealing wound in her scalp. In addition, the second lesion in the calvarium has not yet been addressed. Plan: /1. She had with treatment #3 of 8 every 2 week treatments of daratumumab with same premeds on 06/13/2020. 2. She will take dexamethasone as scheduled. 3. Labs from 06/13/2020 were reviewed in detail and discussed with Mey Eduardo and a copy was given to her. WBC 6.9 , hemoglobin 11.2, platelets 211,000, ANC is 2600 potassium 4.0 creatinine 1.1 LFTs are normal. 4. EGD from 05/03/[address] Jimenes was unremarkable there were no abnormalities seen in the esophagus the GE junction and the whole stomach with unspecified abnormality noted consistent abnormal curvature of the stomach absent which is consistent with a history of gastric bypass no acute lesions or ulcerations. The duodenum was examined and no abnormalities were seen. She did also have colonoscopy on 05/03/2020 in the rectum there was 1 polyp ranging in size from 2 mm to 4 mm it was hyperplastic in appearance and was sent for biopsy- the final pathology is pending. 4. We will plan for her to return in 1 weeks for cycle 5 day 1 daratumumab (#4 of 8 every two week treatments). I have asked for a CBC and CMP at that time. 5. I am tryng to set her up for a PET CT restaging. Her last PET/CT was July 2019. Although she has multiple calvarial lesions it would be nice to know what the remainder of her skeleton looks like. She was reminded to make sure that her blood sugars are less than 200 preferably less than 150 on the day of her PET scan. She is aware that this will not change her current treatment plan , but it will give us more information for monitoring her disease response. 6. Ms. Clark was instructed to contact us in the interim should questions or problems arise. 7. Plan to stop her Protonix from 40 twice daily switch her to Prevacid 30 daily whichever she prefers at this time. 8. She will recived hydration/support care for dehydration today and prn. 9. The current plan will be to see her as schedueled. Signed By: Sue Patel-, [facility] Ruiz Rodriguez MD <<Signature on File>>
[2020-06-26 10:55] LABS: Basophils # 0.1 10^3/uL (0.0-0.1); Basophils % 0.6 %; Eosinophils % 0.2 %; Hematocrit 38.1 % (37.0-47.0); Hemoglobin 11.7 g/dL (11.5-15.3); Lymphocytes % 35.1 %; Mean Corpuscular HGB Conc 30.7 g/dL (30.0-36.0); Mean Corpuscular Volume 94.5 fL (81-99); Mean Platelet Volume 11.9 fL (7.4-10.4); Monocytes # 0.8 10^3/uL (0.2-0.9); Monocytes % 9.3 %; Neutrophils % 54.6 %; Nucleated Red Blood Cells % 0 %; Platelet Count 230 10^3/cmm (130-400); Red Blood Count 4.03 10^6/uL (4.1-5.3); Red Cell Distribution Width 14.9 % (12.1-15.1); White Blood Count 8.6 10^3/uL (4.0-10.0)
[2020-06-26 11:15] LABS: Alanine Aminotransferase 17 U/L (0-33); Albumin Level 3.4 g/dL (3.5-5.2); Alkaline Phosphatase 72 IU/L (35-105); Anion Gap 10.2 (5-19); Aspartate Amino Transferase 17 U/L (0-32); Blood Urea Nitrogen 13 mg/dL (8-23); Calcium 9.4 mg/dL (8.5-10.5); Carbon Dioxide 27 mmol/L (22-29); Chloride 105 mmol/L (98-107); Globulin 2.1 g/dL (1.3-4.6); Glucose 106 mg/dL (65-115); Immunoglobulin IGG 724 mg/dL (700-1600); Magnesium 1.7 mg/dL (1.7-2.3); Osmolality Calculated 283 mOsm/kg (285-295); Potassium 4.2 mmol/L (3.5-5.1); Sodium 138 mmol/L (136-145); Total Bilirubin 0.4 mg/dL (0.15-1.2); Total Protein 5.5 g/dL (6.6-8.7)
[2020-06-26 11:30] LABS: Immunoglobulin IGA 40 mg/dL (70-400); Immunoglobulin IGM 18 mg/dL (40-230)
[2020-06-27 10:50] LABS: PROTEIN, TOTAL 5.2 g/dL (6.1-8.1)
[2020-06-27 13:40] LABS: KAPPA LIGHT CHAIN, FREE, SERUM 21.6 mg/L (3.3-19.4); KAPPA/LAMBDA LIGHT CHAINS FREE 0.07 (0.26-1.65); LAMBDA LIGHT CHAIN, FREE, SERU 319.6 mg/L (5.7-26.3)
[2020-06-27 15:04] LABS: ABNORMAL PROTEIN BAND 1 0.5 g/dL (NONE DETECTED); ABNORMAL PROTEIN BAND 2 0.2 g/dL (NONE DETECTED); ALBUMIN 3.1 g/dL (3.8-4.8); ALPHA 1 GLOBULIN 0.2 g/dL (0.2-0.3); ALPHA 2 GLOBULIN 0.7 g/dL (0.5-0.9); BETA 1 GLOBULIN 0.3 g/dL (0.4-0.6); BETA 2 GLOBULIN 0.2 g/dL (0.2-0.5); GAMMA GLOBULIN 0.7 g/dL (0.8-1.7)
== END 2020-06-20 08:59 | disposition home or self-care (01) ==
LOC: ONCMED 09:00
PROVIDERS: Internal Medicine Medical Oncology; PCP Electrodiagnostic Medicine; Visit Provider Nurse Practitioner
DX: C90.00 Multiple myeloma not having achieved remission (principal); C79.51 Secondary malignant neoplasm of bone; D50.9 Iron deficiency anemia, unspecified; E83.51 Hypocalcemia; D47.2 Monoclonal gammopathy; M47.9 Spondylosis, unspecified; I10 Essential (primary) hypertension; N80.9 Endometriosis, unspecified; F41.9 Anxiety disorder, unspecified; F32.9 Major depressive disorder, single episode, unspecified
CPT/HCPCS: 96361; 96365; 96367; 96375; 99214; C9113; J1100; J2405; J7030

== ENCOUNTER 2020-06-25 10:58 | Outpatient (CLI) | payer MEDICARE, SELFPAY ==
--- NOTE | 2020-06-25 11:06 | MM_ITS ---
WS: [id number] BILATERAL DIGITAL SCREENING MAMMOGRAPHY WITH CAD CLINICAL INFORMATION: SCREENING HISTORY: Screening mammogram. No current complaints. Family history of breast cancer. COMPARISON: 2013. TECHNIQUE: Bilateral CC and MLO views. FINDINGS: Scattered fibroglandular densities bilaterally. No suspicious focal mass, asymmetry, calcifications, or architectural distortion. No evidence of malignancy. Biopsy marker left breast. MM/[place] [id number] IMPRESSION: BI-RADS: 2-Benign FOLLOW UP: 1 Year Follow-up Recommend return to annual screening mammography.
== END 2020-06-25 10:59 | disposition home or self-care (01) ==
LOC: RADSHAW 11:01
PROVIDERS: PCP Electrodiagnostic Medicine; Visit Provider Electrodiagnostic Medicine
DX: Z12.31 Encounter for screening mammogram for malignant neoplasm of breast (principal)
CPT/HCPCS: 77067

== ENCOUNTER 2020-06-26 09:46 | Outpatient (CLI) | payer MEDICARE, SELFPAY | END 2020-06-26 09:47 | disposition home or self-care (01) | LOC: ONCMED 09:48 | PROVIDERS: PCP Electrodiagnostic Medicine; Visit Provider Internal Medicine Medical Oncology | DX: C90.00 Multiple myeloma not having achieved remission (principal); C79.51 Secondary malignant neoplasm of bone; D50.9 Iron deficiency anemia, unspecified; D47.2 Monoclonal gammopathy; E83.51 Hypocalcemia; E61.2 Magnesium deficiency | CPT/HCPCS: 36591; 80053; 82784; 83735; 83883; 84155; 84165; 85025 ==

== ENCOUNTER 2020-06-27 06:07 | Outpatient (CLI) | payer MEDICARE, SELFPAY ==
[2020-06-27] MEDS: acetaminophen 325 mg Tablet 650 MG PO (09:40)
[2020-06-28] MEDS: sodium chloride 0.9% 250 ML 75 ML IV (09:40)
[2020-06-28] MEDS: dexamethasone 20 MG in sodium chloride 0.9% 50 ML 187 MG IV (10:05)
--- NOTE | 2020-06-28 12:42 | ONC FU_ITS ---
[facility] Patient Note Patient: Valentin Clark Unit #: [id number]: 1950 Dictated By: Sue PatelDate of Visit: Jun 27, 2020 Onc MED Follow-Up/Prog Note Chief Complaint: Mulitple myeloma. 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 In March 2018 she had bumped her head at work and in the process of that she became aware of a small lump, though it was actually in a slightly different area. She then noticed that the lump was getting larger. Evaluation with head MRI on 06/07/2018 showed evidence of a right parietal occipital extra-axial neoplasm, felt to be most likely meningeal in origin. It was noted to exert mass effect on the right parietal and occipital lobes, but without associated midline shift or white matter parenchymal edema. The lesion was noted to invade through the calvarium and into the subcutaneous parietal occipital scalp soft tissues. The mass measured 5.7 x 3.5 x 6 cm. 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 The area of occlusion was noted to extend over approximately 4.3 cm. She was seen by Dr. Landry and subsequently referred for neurosurgery evaluation at [facility]. Initially they had considered possible surgical resection. Her further evaluation there apparently included laboratory findings which were suspicious for myeloma, and it was recommended that she have treatment with radiation. She was seen here for further management on 07/14/2018. She then returned to Dr. Landry, and on 07/20/2018 she underwent open biopsy/resection of the extracranial extent of the mass. 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 Her further evaluation included protein electrophoresis which showed an IgG lambda monoclonal protein in the serum quantitating at 0.48 g/dL. The serum free light chain assay showed elevated lambda light chain at 374.65 mg/L with decreased kappa/lambda ratio at 0.06. The 24-hour urine protein electrophoresis showed no monoclonal protein. There were no other areas of lytic bone involvement noted on her skeletal survey. Bone marrow aspiration/biopsy on 07/30/2018 showed a monotypic plasma cell population, but it comprised only 2% of the total cellularity. A FISH panel for myeloma was unrevealing, and the standard chromosome analysis was normal. She was referred to Dr. Kaur, and she began radiation to the lesion on 07/30/2018. She completed treatment on 09/02/2018 to a total dose of 5,000 cGy. She had evaluation with CT pulmonary angiogram on 09/14/2018. It showed moderate bilateral pulmonary embolic burden. She began on anticoagulation with apixaban. During her subsequent follow-up she continued to have an open wound at the site of the plasmacytoma in the parietal-occipital scalp region. As of her follow-up visit on 10/19/2018 her M protein was stable 0.37 g/dL. In the absence of any evidence of symptomatic myeloma, she had otherwise just continued on observation/expectant management. However, due to her persistent scalp wound she had a repeat brain MRI on 01/11/2019. It showed evidence of residual neoplastic process at the resection site. There was associated dural involvement but with improved signal characteristics and decreased enhancement compared to the study from September 2018. She was seen for a follow-up visit on 01/20/2019. In view of the MRI findings, she had further evaluation with PET/CT on 02/03/2019. It showed increase in size and expansile hypermetabolic lesion within the left ilium with extension of hypermetabolic tumor into the adjacent left iliac muscle. There was a new hypermetabolic lytic process within the right S1/S2 region. A large lytic mass within the posterior calvarium did not appear to have active hypermetabolism. Also noted, though, was a hypermetabolic lesion within the medullary canal of the distal left femoral diametaphysis and an additional hypermetabolic focus in the anterior cortex of the distal right femur concerning for additional areas of myeloma. In the setting of obvious progression of her myeloma, she was recommended to begin a trial of therapy with Velcade/Revlimid/dexamethasone. Her other medical illnesses include hypertension and degenerative arthritis/degenerative disease of the spine. She has associated cervical and lumbar spinal stenosis. She has a history of endometriosis, and she has anxiety/depression. She is a nonsmoker. INTERIM HISTORY: She began cycle 1 of VRd on 02/23/2019. At that time she also received an infusion of IV Zometa for the lytic bone involvement. At that time, there was a slight increase in her baseline creatinine level to 1.2 mg/dL, and it was opted to reduce her Revlimid dosage because of that. She experienced significant toxicity following her day 1 treatment, mainly having become listless and out of it over the next 4-5 days. She also lost her appetite. Her follow-up lab studies showed a drop in her calcium from baseline 10.3 mg/dL to 6.5 mg/dL with albumin 3.5 g/dL. With that finding, I did opt to hold her further Velcade, but she continued Revlimid and dexamethasone. As of 03/09/2019 she restarted treatment with Velcade at 1.3 mg/m??? weekly with Revlimid reduced to 15 mg daily on a 21/28 day schedule and the dexamethasone dosage reduced to 20 mg weekly. As of her day 15 visit, she was tolerating the treatment well. At that time she received the full dosage of Velcade, and she continued Revlimid 15 mg daily for 7 more days. She had subsequently developed diarrhea, and at her followup visit on 04/07/2019 her treatment was put on hold. She eventually continued with cycle 3 on 05/05/2019 with the Revlimid dosage further reduced to 10 mg daily on a 21/28 day schedule and with the Velcade and dexamethasone dosed weekly. Her repeat SPEP at that time showed residual M protein quantitating at 0.3 g/dL. The free light chain assay showed kappa light chain 100 mg/L, lambda light chain 122 mg/L, and kappa/lambda ratio 0.82. Her treatment was put on hold again at day 8 due to worsening neuropathy. She subsequently was able to continue the Revlimid and dexamethasone, but the Velcade remained on hold. Her repeat protein electrophoresis on 06/09/2019 showed stable M protein at 0.3 g/dL. The serum free light chain assay showed normal kappa/lambda ratio at 0.84. She was seen for a follow-up visit on 06/21/2019. At that point she appeared stable clinically. Her blood counts were adequate, and she continued with her 4th cycle of treatment. Her repeat protein electrophoresis on 07/13/2019 showed residual M protein quantitating at 0.2 g/dL. The free light chain assay showed elevated kappa light chain at 31.0 mg/L and elevated lambda light chain at 33.0 mg/L with normal kappa/lambda ratio at 0.94. Her 24-hour urine protein electrophoresis showed no detectable monoclonal protein. She was seen for a follow-up visit on 07/19/2019. At that point she complained of increased fatigue and excessive somnolence, and Dr Rodriguez did opt to put her treatment on hold. A subsequent restaging PET/CT showed no FDG avid sites of involvement. Her repeat head MRI on 08/10/2019 showed no evidence of recurrent or progressive disease. With those findings, Dr Rodriguez opted to transition her treatment to maintenance Revlimid at 5 mg daily, which she started following her visit on 08/17/2019. Her further laboratory studies on 09/22/2019 also showed a low B12 level at 189 pg/mL, and she subsequently started B12 replacement therapy. A sleep study in October 2019 showed moderate obstructive sleep apnea. At her follow-up visit on 11/28/2019 she was still mildly anemic, and transferrin saturation was still low at 17% despite being on oral iron replacement. As such, she was then given parenteral iron replacement with infusions of Injectafer on 11/28/2019 and on 12/05/2019. With the 11/28 visit she also was given denosumab 120 mg by subcutaneous injection for the lytic bone involvement. On 12/06/2019 she was admitted to the hospital with symptomatic hypocalcemia, serum calcium 5.9 mg/dL with albumin 2.9 g/dL. Renal function was stable with creatinine 1.0 mg/dL, but her potassium also was low at 3.2 mmol/L. She was given IV calcium and potassium replacement. She then continued further IV replacement as an outpatient. Despite that she was readmitted to the hospital with hypocalcemia on 12/15/2019. She was discharged home on 12/23/2019. Her evaluation included CT pulmonary angiogram which showed no evidence of pulmonary embolism. There was evidence of cardiomegaly, a small pericardial effusion, and small bilateral pleural effusions. Echocardiogram showed small, hemodynamically insignificant pericardial effusion and normal left ventricular function. She then returned here on 12/27/2019 and she has since then continued IV fluid and electrolyte replacement, daily for the first week and then on Mondays, Wednesdays, and Fridays. Despite that, she continued to feel weak and shaky, and she had ongoing complaints of nausea and anorexia. She continued to require IV fluid and electrolyte replacement but she did show gradual recovery. Her further treatment remained on hold. Repeat protein electrophoresis on 01/16/2020 showed stable M protein at 0.4 g/dL. The serum free light chain assay showed elevated free lambda light chain at 254 mg/L with decreased kappa/lambda ratio at 0.16. There was no monoclonal protein identified in the 24-hour urine protein electrophoresis. Restaging PET/CT on 02/24/2020 showed findings concerning for disease progression with new areas of marrow hypermetabolism within the right proximal humerus and within the bilateral distal femoral diametaphysis. The existing areas of involvement within the left ilium and sacrum showed further decrease in FDG uptake. With those findings, it was recommended that she proceed to second line treatment with daratumumab/dexamethasone. She was scheduled to come in last week for her initial infusion of daratumumab, but the treatment was deferred when she developed low-grade fever and other acute symptoms. She eventually was able to begin her initial infusion of daratumumab on 03/21/2020. Her repeat free light chain assay prior to that showed further increase in the lambda light chain to 537 mg/L with kappa/lambda ratio 0.06. She tolerated the daratumumab with no adverse effects, and she then continued treatment weekly. On 05/03/2020 she underwent EGD and colonoscopy by Dr. Jimenes. The EGD showed no significant abnormal findings, and the colonoscopy showed just 2 small polyps in the rectum. 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 As of 05/09/2020 she had completed her 8th infusion on the weekly schedule, and as of 05/16/2020 she received her 1st of 8 planned infusions at the 2-week interval. Her M protein at that point was stable at 0.4 g/dL. The free light chain assay showed a decrease in the free lambda light chain from 537.42 205.2 mg/L. She was informed of her recent MRI of the brain with and without contrast from 06/05/2020. Is noted that on the calvarium/scalp there is a large postoperative right parietal occipital resection and craniectomy site is again did not 5. Mild postoperative enhancement of the resection cavity and the adjacent calvarium. There is more enhancement at the resection site than on prior study. There is mild progressive enhancement at that adjacent dura. There are numerous additional enhancing capillary lesions demonstrating marked progression since 02/01/2020. The largest was previously described in the posterior right parietal bone measuring 2.2 cm increased in size from 0.9 cm. There are additional bilateral capillary lesions which are best seen at the post enhancement examination. Final impression was significant progression of myelomatous lesions within the skull since 02/01/2020. Numerous cavitary lesions are now present with the largest in the right parietal bone measuring 2.2 cm. Postoperative resection site in the posterior right parietal bone has slightly more enhancement and is slightly more dural enhancement. Suspicious for progression of neoplastic changes at the resection site. It was discussed with Ms. Clark that this means that the wound she currently has will not be resectable or be a candidate for any surgery as she now has multiple lesions on the calvarium. We have discussed that we want to change her chemotherapy to add pomalidomide to her daratumumab. She is scheduled to receive the pomalidomide 06/27/2020 after 1-2 pm. Mrs. Clark did have COVID-19 testing on June 13, 2020. It was negative. She is here today for follow-up. She has continued with the every 2 week Dazalex. Today is scheduled to be her 02/21 2 week dose. Once again she has multiple complaints most bothersome being fatigue. She states she is just been sleeping a lot and just feels tired. She reports that over the weekend she slept for straight 24 hours but then states she got up to go to the bathroom and take care of her dog. But she states she went right back to sleep with no problem. She does feel some better today but overall still tired. She states her ankles are aching which is new for her. She also complains that her right butt cheek is hurting she states is tender but she has not felt any knots. She still complains that her scalp is tender and painful at times. Her appetite comes and goes. Her energy is poor as above. She denies any other pain. She has had no lower extremity edema or orthopnea. She denies any palpitations. She denies any new abdominal pain. She has had no lower extremity pain. She denies orthopnea. She denies angina. Her ECOG is 2. Past Medical History: Anxiety/depression Cervical stenosis Degenerative arthritis Degenerative disease of the spine Depression Endometriosis Hypertension Lumbar stenosis Past Surgical History: Bilateral cataract excisions Cholecystectomy/gastric stapling Removal of ovarian cyst x 2 Tonsillectomy Left subclavian venous access device???Dr. [facility] [place] in 2019 Allergies: BusPIRone HCl, Codeine and Related, Levaquin, and Morphine Derivatives. Medications: Acetaminophen 2 Tablet (of 500 mg) Oral PRN Bisacodyl 1 Tablet (of 5 mg) Tablet, enteric coated Oral daily Calcitriol 1 Capsule (of .25 mcg) Oral b.i.d. calicum 600 Tabminder (of 600 mg) Tablet Sublingual b.i.d. Cyclobenzaprine HCl 1 Tablet (of 5 mg) Oral PRN Dexamethasone (4 mg) Tablet Oral Take as Directed Eliquis 1 Tablet (of 2.5 mg) Oral b.i.d. FLUoxetine HCl 1 Capsule (of 20 mg) Oral daily Furosemide 1 - 2 Tablet (of 40 mg) Oral daily PRN GoodSense Stimulant Laxative 2 Tablet (of 8.6-50 mg) Oral t.i.d. PRN HYDROcodone-Acetaminophen 1 - 2 Tablet (of 5-325 mg) Oral q 4 hours PRN Lansoprazole 1 Capsule (of 30 mg) Capsule Delayed Release Oral daily Loperamide A-D 1 Tablet (of 2 mg) Oral PRN Loratadine 1 Tablet (of 10 mg) Oral daily PRN LORazepam 1 Tablet (of 0.5 mg) Oral at bedtime Metoprolol Tartrate 0.5 Tablet (of 25 mg) Oral b.i.d. Ondansetron HCl 1 - 2 Tablet (of 4 mg) Oral PRN Pantoprazole Sodium 1 Tablet (of 40 mg) Tablet, enteric coated Oral b.i.d. Potassium Chloride ER 1 Tablet (of 20 meq) Tablet, controlled release Oral daily Probiotic Acidophilus 1 Capsule Tablet Oral b.i.d. traMADol HCl 1 Tablet (of 50 mg) Oral t.i.d. PRN Ventolin HFA Aerosol, solution Inhalation Vitamin D3 2 Capsule (of 2000 Units) Oral daily Family History: Ms. Clark's mother at age 84: emphysema, and congestive heart failure. Ms. Clark's father at age 53: heart disease, and myocardial infarction. Ms. Clark has 2 brothers: 1 alive, 1 . Ms. Clark's first brother's colon cancer, and type ii diabetes. Another brother's colon cancer. She has 2 sisters: 2 alive. Ms. Clark's first sister's herat disease, and type ii diabetes. Father of heart attack age 51. Mother with emphysema at age 78. She also had heart disease and diabetes. A sister has diabetes and heart disease. A brother has diabetes and he has been treated for colon cancer. A maternal uncle also had colon cancer, and a maternal aunt had breast cancer. 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 Ms. Clark has never smoked. She drinks occasionally. She is a nonsmoker. She has had just rare alcohol use. Review Of Symptoms: Constitutional Denies fevers, chills, night sweats. Has fatigue. States she slept for 24 hours pretty much-only getting up to go to the bathroom and take care of my dog . Allergic/Immunologic No reactions. Eyes Denies significant visual changes. No diplopia. No amaurosis. ENMT Denies changes in hearing, sore throat, mouth sores, difficulty or changes in swallowing ability, and/or sinus drainage. Endocrine No diabetes, thyroid disease or hormone replacement. Denies hot flashes or night sweats. Hematologic/Lymphatic Denies easy bruising or bleeding. The patient denies any tender or palpable lymph nodes. Respiratory Denies any new dyspnea on exertion, chest pain, cough or hemoptysis. Denies orthopnea. Cardiovascular Denies anginal chest pain, palpitations or orthopnea. Gastrointestinal Denies nausea, vomiting, GI bleeding, or constipation. She states she had diarrhea still but no worse. No form to the stools at all . Diarrhea better today but still unformed, watery stool. She states she forgets to take the antidiarrheal medicine. She states she has alot of belching worse after she eats. May be some heartburn at times. Genitourinary (F) No hematuria, hesitancy, incontinence, vaginal bleeding, discharge or other problems with urination. Musculoskeletal Denies joint pain, swelling or redness. No decreased range of motion. Right buttock hurting for a couple of days-it is tender but not abnormal physical findings. Integumentary Denies chronic rashes, inflammation, ulcerations or skin changes. Neurologic Denies headache, blurred vision, and no areas of focal weakness or numbness. Normal gait. No sensory problems. Psychiatric Denies insomnia, depression, olivia or mood swings. Vital Signs: Performed on Jun 27, 2020 09:08 Height - 63.50 in Weight - 195.4 lbs (LOW) BSA - 1.93 sq.m BMI - 34.07 (HIGH) Temperature - 96.7 F (LOW) Pulse - 63 /min Respiration - 17 /min BP - 125/70 mm(hg) O2 Sat - 97 % Pain - 5,2 - Ambulatory/capable of all self-care, unable to perform any work activities. Up and about more than 50% of waking hours. (ECOG) Physical Examination: Constitutional Alert, oriented, no acute distress. Skin pink, warm and dry. Head Normocephalic; atraumatic. Posterior scalp wound is healing well without exudate or redness. It remains open-covered with dressing. Eyes Conjunctivae and sclerae are clear and without icterus. Pupils are reactive and equal. Neck Supple without masses or thyromegaly. No jugular venous distension. Hematologic/Lymphatic No petechiae or purpura. No tender or palpable lymph nodes in the cervical or supraclavicular areas. Respiratory Lungs are clear to auscultation without rhonchi or wheezing. Cardiovascular Regular rate and rhythm of heart without murmurs,clicks, gallops or rubs. Chest left sided port-unremarkable. Abdomen Non-tender, non-distended, no masses, ascites. .Good bowel sounds noted in all quads. No guarding or rebound tenderness. No pulsatile masses. Back/Spine Non-tender to palpation. Extremities No visible deformities, no cyanosis, clubbing or edema. Musculoskeletal No tenderness or swelling. Integumentary No rashes or lesions. Neurologic No sensory or motor deficits, normal cerebellar function, normal-slow gait. Psychiatric Alert and oriented times three. Coherent speech. Verbalizes understanding of our discussions today. Laboratory:Test performed on Jun 13, 2020 08:32 Magnesium 1.7 mg/dL Sodium 140 mmol/L TSH 4.34 uIU/mL Potassium 4.0 mmol/L Chloride 107 mmol/L CO2 22 mmol/L Anion Gap 15.0 BUN 12 mg/dL Creatinine 1.1 mg/dL Cr Clearance (Est) 70.3000 mL/min eGFR 49.2 mL/min Glucose 102 mg/dL Calcium 9.4 mg/dL Protein, Total 5.6 g/dL Albumin 3.5 g/dL Globulin 2.1 g/dL Bilirubin, Total 0.4 mg/dL ALT (SGPT) 19 U/L AST (SGOT) 22 U/L Alkaline Phosphatase 77 IU/L Hemoglobin A1C % 6.8 % WBC 6.9 10 3/uL RBC 3.85 10 6/uL HGB 11.2 g/dL HCT 35.8 % MCV 93.0 fL MCH 29.1 pg MCHC 31.3 g/dL RDW 14.7 % Platelet Count 211 10 3/cmm MPV 11.9 fL Neutrophils 2.65 10 3/uL Lymphocytes 3.4 10 3/uL Monocytes 0.7 10 3/uL Eosinophils 0.1 10 3/uL Basophils 0.1 10 3/uL Neutrophil % 38.5 % Lymphocyte % 49.6 % Monocyte % 9.8 % Eosinophil % 1.0 % Basophils % 1.0 % NRBC % 0 % IgG 659 mg/dL IgA < 50 mg/dL IgM < 25 mg/dL Test performed on May 01, 2020 10:50 Manual Monocytes Abs 0.7 10 3/cmm Manual Lymphs % 27 % Manual Monos % 11.0 % Total Cells Counted 100 Test performed on Apr 24, 2020 09:45 Manual Bands 20.9 % Manual Eosinophils 0.5 % Manual Basophils 1.2 % Test performed on Mar 13, 2020 08:05 ESR (Sed Rate) 17 mm/hr Test performed on Feb 20, 2020 09:15 Phosphorus 2.3 mg/dL Test performed on Jan 16, 2020 14:00 NT proBNP 1439 pg/mL Homocysteine 7.04 umol/L LDH (Total) 80 U/L Methylmalonic Acid 79 nmol/L Vitamin B12 1566 pg/mL [place] Free Light Chains 40.4 mg/L [place]/Lambda Free Ratio 0.16 Test performed on Jan 02, 2020 09:16 Vitamin D (25-Hydroxy), Total 22 ng/mL Impression: 1. 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 She underwent resection/open biopsy of the extracranial portion of the mass on 07/20/2018. 2. She then underwent radiation, completed on 09/02/2018 to a total dose of 5000 cGy. 3. She has persistent open wound at the biopsy site. 4. She had associated IgG lambda monoclonal protein in the serum and 2% monoclonal plasma cells in the bone marrow, consistent with underlying myeloma. Initially it appeared to otherwise not be symptomatic. 5. She was found to have pulmonary emboli by CT pulmonary angiogram on 09/14/2018. She began anticoagulation with apixaban. Her other medical illnesses include: 6. Degenerative arthritis and degenerative disease of the spine with associated cervical and lumbar spinal stenosis. 7. Hypertension. 8. Endometriosis. 9. Anxiety/depression. During subsequent followup she had increasing pain in the left hip/buttock area. Her repeat protein electrophoresis studies showed only a slight increase in her M protein, but her repeat PET/CT on 02/03/2019 showed significant progression of lytic bone involvement in the left ilium. There was also possible involvement in the distal right femur. The area of lytic involvement in the calvarium was not metabolically active. On 02/23/2019 she began cycle 1 of Velcade/Revlimid/dexamethasone. She also was given an infusion of Zometa for the lytic bone involvement. Her treatment was complicated by [employer]ICE [employer]IDENT toxicity and hypocalcemia. Her Velcade was put on hold. She stopped the Revlimid and dexamethasone as of 03/02/2019. At that point she was still having significant pain associated with the lytic bone involvement in the left ileum. During subsequent follow-up, the hypocalcemia improved. As of 03/09/2019 she was able to restart treatment with dose reductions in the Revlimid and dexamethasone. She had remained mildly anemic, but that appeared to be due to iron deficiency. As of her cycle 2 day 15 visit, she appeared to be doing well, and she continued to her treatment as scheduled. Subsequent to that visit, she developed severe diarrhea, and her treatment was put on hold. She continued with cycle 3 on 05/05/2019. She was given a further reduction in the Revlimid dosage to 10 mg daily on a 21 day schedule with the Velcade and dexamethasone dosed weekly. Her treatment was put on hold at day 8 due to worsening neuropathy. She subsequently was able to continue treatment with Revlimid/dexamethasone, but the Velcade remained on hold. She then continued with cycle 4 on 06/21/2019. As of her follow-up visit on 07/19/2019 her treatment was put on hold due to multiple complaints, the most significant being increased fatigue and excessive somnolence. A subsequent restaging PET/CT showed no active sites of involvement. She continued, though, to have severe fatigue/somnolence despite adjustments in her medication regimen. She also continued to have significant musculoskeletal pain, and she had a persistent open wound in the area of the vertex of her scalp. Her repeat head MRI on 08/10/2019 showed no evidence of recurrent or progressive disease. With those findings, her treatment was transitioned to maintenance Revlimid at 5 mg daily, which she started following her visit on 08/17/2019. As of her followup visit on 11/28/2019 she appeared to be tolerating the maintenance Revlimid with acceptable toxicity, and there had been no obvious progression of the myeloma. During that time she was found to have B12 deficiency, and she had been showing some improvement with B12 replacement. However, at that point she still had mild anemia, and her transferrin saturation and ferritin levels were consistent with iron deficiency despite the fact that she had been on oral iron supplementation. She was given parenteral iron replacement with 2 infusions of Injectafer. She also was given denosumab 120 mg by subcutaneous injection for the lytic bone involvement. On 12/06/2019 she was admitted to the hospital with symptomatic hypocalcemia. She also had hypokalemia and hyperphosphatemia. I was uncertain to what extent those abnormalities were due to the Injectafer, to the denosumab, or both. However, she continued to have persistent symptomatic hypocalcemia and hyperphosphatemia despite having both IV or oral replacement, and she required hospital admission again on 12/15/2019. During this time there was a significant in her performance status. She also developed shortness of breath and hypoxia. A specific cause for that was not determined. Following her hospitalization she continued outpatient IV fluid and electrolyte replacement along with oral calcium and vitamin D supplements. However, she did show gradual recovery with resolution of the hypocalcemia/hyperphosphatemia and she also had gradual improvement in her performance status. Her protein electrophoresis studies in January did show evidence of progression of her myeloma with increasing free lambda light chain and her restaging PET/CT in February also showed findings suspicious for disease progression. She did not appear to be overtly symptomatic, but with evidence of disease progression, she was recommended to begin second line treatment with daratumumab/dexamethasone. Her treatment was delayed after she developed fever and other symptoms, but she eventually did start treatment with daratumumab/dexamethasone on 03/21/2020. Her repeat free light chain assay prior to that had shown further increase in the lambda free light chain to 537 mg/L with kappa/lambda ratio 0.06. She tolerated the initial daratumumab infusion with no adverse effects, and she has been able to continue treatment weekly. She is currently at #4 of 8 of her every 2 week treatments. She does appear to be showing some gradual improvement in her performance status, though she continues to have significant GI symptoms and she still has nonhealing wound in her scalp. In addition, recent imaging indicates multiple scalp lesions. We are changing her treatment to include pomalidomide. She will start out at a reduced dose-2 mg days 1-21 due to previous intolerance of chemotherapy. We will attempt to titrate the dose up as tolerated and as needed. Plan: 1. Proceed with #4 of 8 every 2 week treatments of daratumumab with same premeds. 2. She will take dexamethasone as scheduled. 3. Labs from 06/26/2020 were reviewed in detail and discussed with Eduardo and a copy was given to her. WBC 8.6 , hemoglobin 11.7, platelets 230,000, ANC was 4700 creatinine 1.0, LFTs are normal. 4. EGD from 05/03/[address] Jimenes was unremarkable there were no abnormalities seen in the esophagus the GE junction and the whole stomach with unspecified abnormality noted consistent abnormal curvature of the stomach absent which is consistent with a history of gastric bypass no acute lesions or ulcerations. The duodenum was examined and no abnormalities were seen. She did also have colonoscopy on 05/03/2020 in the rectum there was 1 polyp ranging in size from 2 mm to 4 mm it was hyperplastic in appearance and was sent for biopsy- the final pathology is pending. 4. We will plan for her to return in 2 weeks for cycle 5 day 15 daratumumab (#5 of 8 every two week treatments). I have asked for a CBC and CMP at that time. 5. I am tryng to set her up for a PET CT restaging. Her last PET/CT was July 2019. Although she has multiple calvarial lesions it would be nice to know what the remainder of her skeleton looks like. She was reminded to make sure that her blood sugars are less than 200 preferably less than 150 on the day of her PET scan. She is aware that this will not change her current treatment plan , but it will give us more information for monitoring her disease response. 6. Ms. Clark was instructed to contact us in the interim should questions or problems arise. 7. Vicentae may start the pomalidomide at 2 mg daily days 1-21 as soon as she gets it. She was advised not to take it directly with Tramadol, which she states she rarely takes more than twice a day. She states she does have hydrocodone if she needs it but doesn't like to take it unless absolutely necessary. 8. She will receive hydration/support care for dehydration prn. Signed By: Sue Patel-, [facility] Ru[facility] Rodriguez MD <<Signature on File>>
== END 2020-06-27 06:08 | disposition home or self-care (01) ==
PROVIDERS: PCP Electrodiagnostic Medicine; Visit Provider Nurse Practitioner
DX: Z51.12 Encounter for antineoplastic immunotherapy (principal); C90.00 Multiple myeloma not having achieved remission; C79.51 Secondary malignant neoplasm of bone; E83.51 Hypocalcemia; D50.9 Iron deficiency anemia, unspecified; F41.9 Anxiety disorder, unspecified; F32.9 Major depressive disorder, single episode, unspecified; M48.02 Spinal stenosis, cervical region; M50.30 Other cervical disc degeneration, unspecified cervical region; N80.9 Endometriosis, unspecified; I10 Essential (primary) hypertension
CPT/HCPCS: 96367; 96413; 96415; 99214; J1100; J1200; J7040; J7050; J9145

== ENCOUNTER 2020-07-04 06:24 | Outpatient (CLI) | payer MEDICARE, SELFPAY ==
[2020-07-04 09:23] LABS: Basophils % 0.2 %; Eosinophils % 0.1 %; Hematocrit 35.4 % (37.0-47.0); Lymphocytes # 1.8 10^3/uL (0.8-4.8); Lymphocytes % 18.8 %; Mean Corpuscular HGB Conc 31.1 g/dL (30.0-36.0); Mean Corpuscular Hemoglobin 28.9 pg (28.0-34.0); Mean Corpuscular Volume 92.9 fL (81-99); Mean Platelet Volume 11.8 fL (7.4-10.4); Monocytes # 0.7 10^3/uL (0.2-0.9); Neutrophils # 7.05 10^3/uL (1.8-7.7); Neutrophils % 73.4 %; Nucleated Red Blood Cells % 0 %; Platelet Count 174 10^3/cmm (130-400); Red Blood Count 3.81 10^6/uL (4.1-5.3); Red Cell Distribution Width 14.8 % (12.1-15.1); White Blood Count 9.6 10^3/uL (4.0-10.0)
[2020-07-04 09:55] LABS: Alanine Aminotransferase 16 U/L (0-33); Albumin Level 3.5 g/dL (3.5-5.2); Alkaline Phosphatase 72 IU/L (35-105); Anion Gap 11.1 (5-19); Aspartate Amino Transferase 11 U/L (0-32); Blood Urea Nitrogen 12 mg/dL (8-23); Calcium 8.9 mg/dL (8.5-10.5); Carbon Dioxide 24 mmol/L (22-29); Chloride 107 mmol/L (98-107); Globulin 2.4 g/dL (1.3-4.6); Glucose 106 mg/dL (65-115); Osmolality Calculated 283 mOsm/kg (285-295); Potassium 4.1 mmol/L (3.5-5.1); Sodium 138 mmol/L (136-145); Total Bilirubin 0.4 mg/dL (0.15-1.2); Total Protein 5.9 g/dL (6.6-8.7)
== END 2020-07-04 06:25 | disposition home or self-care (01) ==
LOC: ONCMED 06:25
PROVIDERS: PCP Electrodiagnostic Medicine; Visit Provider Nurse Practitioner
DX: C90.00 Multiple myeloma not having achieved remission (principal); C79.51 Secondary malignant neoplasm of bone; D50.9 Iron deficiency anemia, unspecified; E83.51 Hypocalcemia; D47.2 Monoclonal gammopathy
CPT/HCPCS: 36591; 80053; 85025

== ENCOUNTER 2020-07-04 14:29 | Outpatient (CLI) | payer MEDICARE, SELFPAY | END 2020-07-04 14:30 | disposition home or self-care (01) | LOC: WOUND 14:30 | PROVIDERS: PCP Electrodiagnostic Medicine; Visit Provider Nurse Practitioner Family | DX: L98.492 Non-pressure chronic ulcer of skin of other sites with fat layer exposed; L59.8 Other specified disorders of the skin and subcutaneous tissue related to radiation; Y84.2 Radiological procedure and radiotherapy as the cause of abnormal reaction of the patient, or of later complication, without mention of misadventure at the time of the procedure; Y78.1 Therapeutic (nonsurgical) and rehabilitative radiological devices associated with adverse incidents | CPT/HCPCS: 11042; 36591; 80053; 85025 ==

== ENCOUNTER 2020-07-10 06:06 | Outpatient (CLI) | payer MEDICARE, SELFPAY ==
[2020-07-10 10:14] LABS: Basophils # 0.1 10^3/uL (0.0-0.1); Basophils % 0.7 %; Eosinophils % 0.5 %; Hematocrit 35.6 % (37.0-47.0); Hemoglobin 11.2 g/dL (11.5-15.3); Lymphocytes # 2.1 10^3/uL (0.8-4.8); Lymphocytes % 26.2 %; Mean Corpuscular HGB Conc 31.5 g/dL (30.0-36.0); Mean Corpuscular Hemoglobin 29.4 pg (28.0-34.0); Mean Corpuscular Volume 93.4 fL (81-99); Mean Platelet Volume 11.5 fL (7.4-10.4); Monocytes # 1.3 10^3/uL (0.2-0.9); Monocytes % 16.5 %; Neutrophils # 4.48 10^3/uL (1.8-7.7); Neutrophils % 55.9 %; Nucleated Red Blood Cells % 0 %; Platelet Count 163 10^3/cmm (130-400); Red Blood Count 3.81 10^6/uL (4.1-5.3); Red Cell Distribution Width 14.5 % (12.1-15.1)
[2020-07-10 11:03] LABS: 25 Hydroxy Vitamin D 27 ng/mL (30-100); Alanine Aminotransferase 12 U/L (0-33); Albumin Level 3.5 g/dL (3.5-5.2); Alkaline Phosphatase 67 IU/L (35-105); Aspartate Amino Transferase 9 U/L (0-32); Blood Urea Nitrogen 15 mg/dL (8-23); Calcium 8.9 mg/dL (8.5-10.5); Carbon Dioxide 23 mmol/L (22-29); Chloride 101 mmol/L (98-107); Globulin 2.4 g/dL (1.3-4.6); Glomerular Filtration Rate 62.1 mL/min (90-130); Glucose 100 mg/dL (65-115); Osmolality Calculated 274 mOsm/kg (285-295); Sodium 134 mmol/L (136-145); Thyroid Stimulating Hormone 4.02 uIU/mL (0.27-4.20); Total Bilirubin 0.6 mg/dL (0.15-1.2); Total Protein 5.9 g/dL (6.6-8.7)
== END 2020-07-10 06:07 | disposition home or self-care (01) ==
PROVIDERS: PCP Electrodiagnostic Medicine; Visit Provider Nurse Practitioner
DX: C90.00 Multiple myeloma not having achieved remission (principal); R53.83 Other fatigue; M79.10 Myalgia, unspecified site; Z51.81 Encounter for therapeutic drug level monitoring; Z79.899 Other long term (current) drug therapy
CPT/HCPCS: 36591; 80053; 82306; 84443; 85025

== ENCOUNTER 2020-07-11 06:06 | Outpatient (CLI) | payer MEDICARE, SELFPAY ==
[2020-07-11] MEDS: sodium chloride 0.9% 500 ML 75 ML IV (09:50)
[2020-07-11] MEDS: dexamethasone 20 MG in sodium chloride 0.9% 50 ML 187 MG IV (09:50)
[2020-07-11] MEDS: acetaminophen 325 mg Tablet 650 MG PO (09:50)
[2020-07-11 10:08] LABS: Add Urine Microscopic? YES; Bilirubin Urine Neg (NEGATIVE); Blood Urine Trace (Negative); Glucose Urine UA Norm (Normal); Ketones Urine Negative (Negative); Leukocyte Esterase Urine Negative (Negative); Nitrate Urine Negative (Negative); Protein Urine Neg (Negative); Urine Appearance Clear (CLEAR); Urine Color Yellow (Yellow); Urobilinogen Urine Neg (Negative); pH Urine 5 (5-7)
[2020-07-11 10:14] LABS: Add Urine Culture? No; Bacteria Urine TRACE; RBC Urine 0-4 /hpf (0-2); Squamous Epithelial Cell Urine 0-4 (0-5)
--- NOTE | 2020-07-15 11:44 | ONC FU_ITS ---
[facility] Patient Note Patient: Valentin Clark Unit #: [id number]: 1950 Dictated By: Sue PatelDate of Visit: Jul 11, 2020 Onc MED Follow-Up/Prog Note Chief Complaint: Multiple myeloma. 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 In March 2018 she had bumped her head at work and in the process of that she became aware of a small lump, though it was actually in a slightly different area. She then noticed that the lump was getting larger. Evaluation with head MRI on 06/07/2018 showed evidence of a right parietal occipital extra-axial neoplasm, felt to be most likely meningeal in origin. It was noted to exert mass effect on the right parietal and occipital lobes, but without associated midline shift or white matter parenchymal edema. The lesion was noted to invade through the calvarium and into the subcutaneous parietal occipital scalp soft tissues. The mass measured 5.7 x 3.5 x 6 cm. 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 The area of occlusion was noted to extend over approximately 4.3 cm. She was seen by Dr. Landry and subsequently referred for neurosurgery evaluation at [facility]. Initially they had considered possible surgical resection. Her further evaluation there apparently included laboratory findings which were suspicious for myeloma, and it was recommended that she have treatment with radiation. She was seen here for further management on 07/14/2018. She then returned to Dr. Landry, and on 07/20/2018 she underwent open biopsy/resection of the extracranial extent of the mass. 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 Her further evaluation included protein electrophoresis which showed an IgG lambda monoclonal protein in the serum quantitating at 0.48 g/dL. The serum free light chain assay showed elevated lambda light chain at 374.65 mg/L with decreased kappa/lambda ratio at 0.06. The 24-hour urine protein electrophoresis showed no monoclonal protein. There were no other areas of lytic bone involvement noted on her skeletal survey. Bone marrow aspiration/biopsy on 07/30/2018 showed a monotypic plasma cell population, but it comprised only 2% of the total cellularity. A FISH panel for myeloma was unrevealing, and the standard chromosome analysis was normal. She was referred to Dr. Kaur, and she began radiation to the lesion on 07/30/2018. She completed treatment on 09/02/2018 to a total dose of 5,000 cGy. She had evaluation with CT pulmonary angiogram on 09/14/2018. It showed moderate bilateral pulmonary embolic burden. She began on anticoagulation with apixaban. During her subsequent follow-up she continued to have an open wound at the site of the plasmacytoma in the parietal-occipital scalp region. As of her follow-up visit on 10/19/2018 her M protein was stable 0.37 g/dL. In the absence of any evidence of symptomatic myeloma, she had otherwise just continued on observation/expectant management. However, due to her persistent scalp wound she had a repeat brain MRI on 01/11/2019. It showed evidence of residual neoplastic process at the resection site. There was associated dural involvement but with improved signal characteristics and decreased enhancement compared to the study from September 2018. She was seen for a follow-up visit on 01/20/2019. In view of the MRI findings, she had further evaluation with PET/CT on 02/03/2019. It showed increase in size and expansile hypermetabolic lesion within the left ilium with extension of hypermetabolic tumor into the adjacent left iliac muscle. There was a new hypermetabolic lytic process within the right S1/S2 region. A large lytic mass within the posterior calvarium did not appear to have active hypermetabolism. Also noted, though, was a hypermetabolic lesion within the medullary canal of the distal left femoral diametaphysis and an additional hypermetabolic focus in the anterior cortex of the distal right femur concerning for additional areas of myeloma. In the setting of obvious progression of her myeloma, she was recommended to begin a trial of therapy with Velcade/Revlimid/dexamethasone. Her other medical illnesses include hypertension and degenerative arthritis/degenerative disease of the spine. She has associated cervical and lumbar spinal stenosis. She has a history of endometriosis, and she has anxiety/depression. She is a nonsmoker. INTERIM HISTORY: She began cycle 1 of VRd on 02/23/2019. At that time she also received an infusion of IV Zometa for the lytic bone involvement. At that time, there was a slight increase in her baseline creatinine level to 1.2 mg/dL, and it was opted to reduce her Revlimid dosage because of that. She experienced significant toxicity following her day 1 treatment, mainly having become listless and out of it over the next 4-5 days. She also lost her appetite. Her follow-up lab studies showed a drop in her calcium from baseline 10.3 mg/dL to 6.5 mg/dL with albumin 3.5 g/dL. With that finding, it was opted to hold her further Velcade, but she continued Revlimid and dexamethasone. As of 03/09/2019 she restarted treatment with Velcade at 1.3 mg/m??? weekly with Revlimid reduced to 15 mg daily on a 21/28 day schedule and the dexamethasone dosage reduced to 20 mg weekly. As of her day 15 visit, she was tolerating the treatment well. At that time she received the full dosage of Velcade, and she continued Revlimid 15 mg daily for 7 more days. She had subsequently developed diarrhea, and at her followup visit on 04/07/2019 her treatment was put on hold. She eventually continued with cycle 3 on 05/05/2019 with the Revlimid dosage further reduced to 10 mg daily on a 21/28 day schedule and with the Velcade and dexamethasone dosed weekly. Her repeat SPEP at that time showed residual M protein quantitating at 0.3 g/dL. The free light chain assay showed kappa light chain 100 mg/L, lambda light chain 122 mg/L, and kappa/lambda ratio 0.82. Her treatment was put on hold again at day 8 due to worsening neuropathy. She subsequently was able to continue the Revlimid and dexamethasone, but the Velcade remained on hold. Her repeat protein electrophoresis on 06/09/2019 showed stable M protein at 0.3 g/dL. The serum free light chain assay showed normal kappa/lambda ratio at 0.84. She was seen for a follow-up visit on 06/21/2019. At that point she appeared stable clinically. Her blood counts were adequate, and she continued with her 4th cycle of treatment. Her repeat protein electrophoresis on 07/13/2019 showed residual M protein quantitating at 0.2 g/dL. The free light chain assay showed elevated kappa light chain at 31.0 mg/L and elevated lambda light chain at 33.0 mg/L with normal kappa/lambda ratio at 0.94. Her 24-hour urine protein electrophoresis showed no detectable monoclonal protein. She was seen for a follow-up visit on 07/19/2019. At that point she complained of increased fatigue and excessive somnolence, and Dr Rodriguez did opt to put her treatment on hold. A subsequent restaging PET/CT showed no FDG avid sites of involvement. Her repeat head MRI on 08/10/2019 showed no evidence of recurrent or progressive disease. With those findings, Dr Rodriguez opted to transition her treatment to maintenance Revlimid at 5 mg daily, which she started following her visit on 08/17/2019. Her further laboratory studies on 09/22/2019 also showed a low B12 level at 189 pg/mL, and she subsequently started B12 replacement therapy. A sleep study in October 2019 showed moderate obstructive sleep apnea. At her follow-up visit on 11/28/2019 she was still mildly anemic, and transferrin saturation was still low at 17% despite being on oral iron replacement. As such, she was then given parenteral iron replacement with infusions of Injectafer on 11/28/2019 and on 12/05/2019. With the 11/28 visit she also was given denosumab 120 mg by subcutaneous injection for the lytic bone involvement. On 12/06/2019 she was admitted to the hospital with symptomatic hypocalcemia, serum calcium 5.9 mg/dL with albumin 2.9 g/dL. Renal function was stable with creatinine 1.0 mg/dL, but her potassium also was low at 3.2 mmol/L. She was given IV calcium and potassium replacement. She then continued further IV replacement as an outpatient. Despite that she was readmitted to the hospital with hypocalcemia on 12/15/2019. She was discharged home on 12/23/2019. Her evaluation included CT pulmonary angiogram which showed no evidence of pulmonary embolism. There was evidence of cardiomegaly, a small pericardial effusion, and small bilateral pleural effusions. Echocardiogram showed small, hemodynamically insignificant pericardial effusion and normal left ventricular function. She then returned here on 12/27/2019 and she has since then continued IV fluid and electrolyte replacement, daily for the first week and then on Mondays, Wednesdays, and Fridays. Despite that, she continued to feel weak and shaky, and she had ongoing complaints of nausea and anorexia. She continued to require IV fluid and electrolyte replacement but she did show gradual recovery. Her further treatment remained on hold. Repeat protein electrophoresis on 01/16/2020 showed stable M protein at 0.4 g/dL. The serum free light chain assay showed elevated free lambda light chain at 254 mg/L with decreased kappa/lambda ratio at 0.16. There was no monoclonal protein identified in the 24-hour urine protein electrophoresis. Restaging PET/CT on 02/24/2020 showed findings concerning for disease progression with new areas of marrow hypermetabolism within the right proximal humerus and within the bilateral distal femoral diametaphysis. The existing areas of involvement within the left ilium and sacrum showed further decrease in FDG uptake. With those findings, it was recommended that she proceed to second line treatment with daratumumab/dexamethasone. She was scheduled to come in last week for her initial infusion of daratumumab, but the treatment was deferred when she developed low-grade fever and other acute symptoms. She eventually was able to begin her initial infusion of daratumumab on 03/21/2020. Her repeat free light chain assay prior to that showed further increase in the lambda light chain to 537 mg/L with kappa/lambda ratio 0.06. She tolerated the daratumumab with no adverse effects, and she then continued treatment weekly. On 05/03/2020 she underwent EGD and colonoscopy by Dr. Jimenes. The EGD showed no significant abnormal findings, and the colonoscopy showed just 2 small polyps in the rectum. 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 As of 05/09/2020 she had completed her 8th infusion on the weekly schedule, and as of 05/16/2020 she received her 1st of 8 planned infusions at the 2-week interval. Her M protein at that point was stable at 0.4 g/dL. The free light chain assay showed a decrease in the free lambda light chain from 537.42 205.2 mg/L. She was informed of her recent MRI of the brain with and without contrast from 06/05/2020. Is noted that on the calvarium/scalp there is a large postoperative right parietal occipital resection and craniectomy site is again did not 5. Mild postoperative enhancement of the resection cavity and the adjacent calvarium. There is more enhancement at the resection site than on prior study. There is mild progressive enhancement at that adjacent dura. There are numerous additional enhancing capillary lesions demonstrating marked progression since 02/01/2020. The largest was previously described in the posterior right parietal bone measuring 2.2 cm increased in size from 0.9 cm. There are additional bilateral capillary lesions which are best seen at the post enhancement examination. Final impression was significant progression of myelomatous lesions within the skull since 02/01/2020. Numerous cavitary lesions are now present with the largest in the right parietal bone measuring 2.2 cm. Postoperative resection site in the posterior right parietal bone has slightly more enhancement and is slightly more dural enhancement. Suspicious for progression of neoplastic changes at the resection site. It was discussed with Ms. Clark that this means that the wound she currently has will not be resectable or be a candidate for any surgery as she now has multiple lesions on the calvarium. We have discussed that we want to change her chemotherapy to add pomalidomide to her daratumumab. She is scheduled to receive the pomalidomide 06/27/2020 after 1-2 pm. Mrs. Clark did have COVID-19 testing on June 13, 2020. It was negative. She is here today for follow-up. She has continued with the every 2 week Dazalex. Today is scheduled to be her 02/21- 2 week dose. Pomalidomide 2 mg was added 06-27-2020. She presents today accompanied by her friend. She states that she has been having side effects from the pomalidomide already. She has been on it for almost 2 weeks. She states that she does not feel dizzy but is feels lightheaded. She states she has been having nausea after she takes her medication however she has not tried taking the nausea medication prior to the pomalidomide. She complains that her right hand leg and ankle have cramps in her toes cramp. She also also complaining of right pain around her kidney . She states symptoms not sure of able tolerate this medication. She continues to have fatigue. She is eating but hit and miss . She still states she eats a lot of pasta. Her weight is down 1 pound. She denies any fever or chills. She has had no vomiting. She denies diarrhea or constipation. She denies any worsening neuropathy symptoms at this time. She states that she just feels weak and washed out and lightheaded intermittently. States the lightheadedness is not they are continuous. She denies any angina. She denies any palpitations. She states her breathing is the same as what it normally is. She continues to have skull pain. She states it does ease with the tramadol but she does not take the tramadol very often. She does have hydrocodone available but takes it very rarely because you may need it worse in the future. We did discuss the fact that she needs to pain controlled now and that there are multiple options for pain treatment if we need them later down the road. Her ECOG is 2. Past Medical History: Anxiety/depression Cervical stenosis Degenerative arthritis Degenerative disease of the spine Depression Endometriosis Hypertension Lumbar stenosis Past Surgical History: Bilateral cataract excisions Cholecystectomy/gastric stapling Removal of ovarian cyst x 2 Tonsillectomy Left subclavian venous access device???[facility]. [facility] [place] Allergies: BusPIRone HCl, Codeine and Related, Levaquin, and Morphine Derivatives. Medications: Acetaminophen 2 Tablet (of 500 mg) Oral PRN Bisacodyl 1 Tablet (of 5 mg) Tablet, enteric coated Oral daily Calcitriol 1 Capsule (of .25 mcg) Oral b.i.d. calicum 600 Tabminder (of 600 mg) Tablet Sublingual b.i.d. Cyclobenzaprine HCl 1 Tablet (of 5 mg) Oral PRN Dexamethasone (4 mg) Tablet Oral Take as Directed Eliquis 1 Tablet (of 2.5 mg) Oral b.i.d. FLUoxetine HCl 1 Capsule (of 20 mg) Oral daily Furosemide 1 - 2 Tablet (of 40 mg) Oral daily PRN GoodSense Stimulant Laxative 2 Tablet (of 8.6-50 mg) Oral t.i.d. PRN HYDROcodone-Acetaminophen 1 - 2 Tablet (of 5-325 mg) Oral q 4 hours PRN Lansoprazole 1 Capsule (of 30 mg) Capsule Delayed Release Oral daily Loperamide A-D 1 Tablet (of 2 mg) Oral PRN Loratadine 1 Tablet (of 10 mg) Oral daily PRN LORazepam 1 Tablet (of 0.5 mg) Oral at bedtime Metoprolol Tartrate 0.5 Tablet (of 25 mg) Oral b.i.d. Ondansetron HCl 1 - 2 Tablet (of 4 mg) Oral PRN Pantoprazole Sodium 1 Tablet (of 40 mg) Tablet, enteric coated Oral b.i.d. Pomalyst 1 Capsule (of 2 mg) Oral daily for 21 days Potassium Chloride ER 1 Tablet (of 20 meq) Tablet, controlled release Oral daily Probiotic Acidophilus 1 Capsule Tablet Oral b.i.d. traMADol HCl 1 Tablet (of 50 mg) Oral t.i.d. PRN Ventolin HFA Aerosol, solution Inhalation Vitamin D3 2 Capsule (of 2000 Units) Oral daily Family History: Ms. Clark's mother at age 84: emphysema, and congestive heart failure. Ms. Clark's father at age 53: heart disease, and myocardial infarction. Ms. Clark has 2 brothers: 1 alive, 1 . Ms. Clark's first brother's colon cancer, and type ii diabetes. Another brother's colon cancer. She has 2 sisters: 2 alive. Ms. Clark's first sister's herat disease, and type ii diabetes. Father of heart attack age 51. Mother with emphysema at age 78. She also had heart disease and diabetes. A sister has diabetes and heart disease. A brother has diabetes and he has been treated for colon cancer. A maternal uncle also had colon cancer, and a maternal aunt had breast cancer. 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 Ms. Clark has never smoked. She drinks occasionally. She is a nonsmoker. She has had just rare alcohol use. Review Of Symptoms: Constitutional Denies fevers, chills, night sweats. Has fatigue. Lightheadedness-see above. Allergic/Immunologic No reactions. Eyes Denies significant visual changes. No diplopia. No amaurosis. ENMT Denies changes in hearing, sore throat, mouth sores, difficulty or changes in swallowing ability, and/or sinus drainage. Endocrine No diabetes, thyroid disease or hormone replacement. Denies hot flashes or night sweats. Hematologic/Lymphatic Denies easy bruising or bleeding. The patient denies any tender or palpable lymph nodes. Breasts Respiratory Denies any new dyspnea on exertion, chest pain, cough or hemoptysis. Denies orthopnea. Cardiovascular Denies anginal chest pain, palpitations or orthopnea. Gastrointestinal Denies nausea, vomiting, GI bleeding, or constipation. She states she had occasional diarrhea still but no worse. She states the lansoprazole is helping some. Genitourinary (F) No hematuria, hesitancy, incontinence, vaginal bleeding, discharge or other problems with urination. Musculoskeletal Denies joint pain, swelling or redness. No decreased range of motion. Right buttock hurting for a couple of days-it is tender but not abnormal physical findings. Integumentary Denies chronic rashes, inflammation, ulcerations or skin changes. Neurologic Denies headache, blurred vision, and no areas of focal weakness or numbness. Normal gait. No sensory problems. Psychiatric Denies insomnia, depression, olivia or mood swings. Vital Signs: Performed on Jul 11, 2020 08:43 Height - 63.50 in Weight - 194.2 lbs (LOW) BSA - 1.92 sq.m BMI - 33.86 (HIGH) Temperature - 97.9 F (LOW) Pulse - 67 /min Respiration - 18 /min BP - 106/55 mm(hg) O2 Sat - 94 % (LOW) Pain - 6,1 - No physically strenuous activity, but ambulatory and able to carry out light or sedentary work (e.g. office work, light house work). (ECOG) Physical Examination: Constitutional Alert, oriented, no acute distress. Skin pink, warm and dry. Head Normocephalic; atraumatic. Posterior scalp wound is healing well without exudate or redness. It remains open-covered with dressing. Eyes Conjunctivae and sclerae are clear and without icterus. Pupils are reactive and equal. Neck Supple without masses or thyromegaly. No jugular venous distension. Hematologic/Lymphatic No petechiae or purpura. No tender or palpable lymph nodes in the cervical or supraclavicular areas. Respiratory Lungs are clear to auscultation without rhonchi or wheezing. Cardiovascular Regular rate and rhythm of heart without murmurs,clicks, gallops or rubs. Chest left sided port-unremarkable. Abdomen Non-tender, non-distended, no masses, ascites. .Good bowel sounds noted in all quads. No guarding or rebound tenderness. No pulsatile masses. Back/Spine Non-tender to palpation. Extremities No visible deformities, no cyanosis, clubbing or edema. Musculoskeletal No tenderness or swelling. Integumentary No rashes or lesions. Neurologic No sensory or motor deficits, normal cerebellar function, normal-slow gait. Psychiatric Alert and oriented times three. Coherent speech. Verbalizes understanding of our discussions today. Laboratory:Test performed on Jul 11, 2020 09:50 Ua Micro: WBC NONE /hpf Ua Micro: RBC 0-4 /hpf Ua Micro: Squam Epith Cells 0-4 Ua Micro: Bacteria TRACE Impression: 1. 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 She underwent resection/open biopsy of the extracranial portion of the mass on 07/20/2018. 2. She then underwent radiation, completed on 09/02/2018 to a total dose of 5000 cGy. 3. She has persistent open wound at the biopsy site. 4. She had associated IgG lambda monoclonal protein in the serum and 2% monoclonal plasma cells in the bone marrow, consistent with underlying myeloma. Initially it appeared to otherwise not be symptomatic. 5. She was found to have pulmonary emboli by CT pulmonary angiogram on 09/14/2018. She began anticoagulation with apixaban. Her other medical illnesses include: 6. Degenerative arthritis and degenerative disease of the spine with associated cervical and lumbar spinal stenosis. 7. Hypertension. 8. Endometriosis. 9. Anxiety/depression. During subsequent followup she had increasing pain in the left hip/buttock area. Her repeat protein electrophoresis studies showed only a slight increase in her M protein, but her repeat PET/CT on 02/03/2019 showed significant progression of lytic bone involvement in the left ilium. There was also possible involvement in the distal right femur. The area of lytic involvement in the calvarium was not metabolically active. On 02/23/2019 she began cycle 1 of Velcade/Revlimid/dexamethasone. She also was given an infusion of Zometa for the lytic bone involvement. 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 Her Velcade was put on hold. She stopped the Revlimid and dexamethasone as of 03/02/2019. At that point she was still having significant pain associated with the lytic bone involvement in the left ileum. During subsequent follow-up, the hypocalcemia improved. As of 03/09/2019 she was able to restart treatment with dose reductions in the Revlimid and dexamethasone. She had remained mildly anemic, but that appeared to be due to iron deficiency. As of her cycle 2 day 15 visit, she appeared to be doing well, and she continued to her treatment as scheduled. Subsequent to that visit, she developed severe diarrhea, and her treatment was put on hold. She continued with cycle 3 on 05/05/2019. She was given a further reduction in the Revlimid dosage to 10 mg daily on a 21 day schedule with the Velcade and dexamethasone dosed weekly. Her treatment was put on hold at day 8 due to worsening neuropathy. She subsequently was able to continue treatment with Revlimid/dexamethasone, but the Velcade remained on hold. She then continued with cycle 4 on 06/21/2019. As of her follow-up visit on 07/19/2019 her treatment was put on hold due to multiple complaints, the most significant being increased fatigue and excessive somnolence. A subsequent restaging PET/CT showed no active sites of involvement. She continued, though, to have severe fatigue/somnolence despite adjustments in her medication regimen. She also continued to have significant musculoskeletal pain, and she had a persistent open wound in the area of the vertex of her scalp. Her repeat head MRI on 08/10/2019 showed no evidence of recurrent or progressive disease. With those findings, her treatment was transitioned to maintenance Revlimid at 5 mg daily, which she started following her visit on 08/17/2019. As of her followup visit on 11/28/2019 she appeared to be tolerating the maintenance Revlimid with acceptable toxicity, and there had been no obvious progression of the myeloma. During that time she was found to have B12 deficiency, and she had been showing some improvement with B12 replacement. However, at that point she still had mild anemia, and her transferrin saturation and ferritin levels were consistent with iron deficiency despite the fact that she had been on oral iron supplementation. She was given parenteral iron replacement with 2 infusions of Injectafer. She also was given denosumab 120 mg by subcutaneous injection for the lytic bone involvement. On 12/06/2019 she was admitted to the hospital with symptomatic hypocalcemia. She also had hypokalemia and hyperphosphatemia. I was uncertain to what extent those abnormalities were due to the Injectafer, to the denosumab, or both. However, she continued to have persistent symptomatic hypocalcemia and hyperphosphatemia despite having both IV or oral replacement, and she required hospital admission again on 12/15/2019. During this time there was a significant in her performance status. She also developed shortness of breath and hypoxia. A specific cause for that was not determined. Following her hospitalization she continued outpatient IV fluid and electrolyte replacement along with oral calcium and vitamin D supplements. However, she did show gradual recovery with resolution of the hypocalcemia/hyperphosphatemia and she also had gradual improvement in her performance status. Her protein electrophoresis studies in January did show evidence of progression of her myeloma with increasing free lambda light chain and her restaging PET/CT in February also showed findings suspicious for disease progression. She did not appear to be overtly symptomatic, but with evidence of disease progression, she was recommended to begin second line treatment with daratumumab/dexamethasone. Her treatment was delayed after she developed fever and other symptoms, but she eventually did start treatment with daratumumab/dexamethasone on 03/21/2020. Her repeat free light chain assay prior to that had shown further increase in the lambda free light chain to 537 mg/L with kappa/lambda ratio 0.06. She tolerated the initial daratumumab infusion with no adverse effects, and she has been able to continue treatment weekly. She is currently at #4 of 8 of her every 2 week treatments. She does appear to be showing some gradual improvement in her performance status, though she continues to have significant GI symptoms and she still has nonhealing wound in her scalp. In addition, recent imaging indicates multiple scalp lesions. We are changing her treatment to include pomalidomide. She will start out at a reduced dose-2 mg days 1-21 due to previous intolerance of chemotherapy. We will attempt to titrate the dose up as tolerated and as needed. She did start pomalidomide 2 mg on 06/27/2020. Plan: 1. Proceed with #4 of 8 every 2 week treatments of daratumumab with same premeds. 2. She will take dexamethasone as scheduled. Continue Pomalidomide at 2 mg daily for a total of 21 days then off 1 week. 3. Labs from 07/10/2020 were reviewed in detail and discussed with Ms. Clark and a copy was given to her. WBC 8.0, hemoglobin 11.2, platelets 163,000, ANC was 4500 creatinine 0.9, LFTs are normal. Her serum protein electrophoresis results from 06/26/2020 were reviewed. Abnormal protein 0.5 abnormal protein 0.2. He was restricted band (M spike) migrating to the gamma region. Her abnormal protein on 05/15/2020 was 0.4 and 0.1 respectively. 4. EGD from 05/03/[address] Jimenes was unremarkable there were no abnormalities seen in the esophagus the GE junction and the whole stomach with unspecified abnormality noted consistent abnormal curvature of the stomach absent which is consistent with a history of gastric bypass no acute lesions or ulcerations. The duodenum was examined and no abnormalities were seen. She did also have colonoscopy on 05/03/2020 in the rectum there was 1 polyp ranging in size from 2 mm to 4 mm it was hyperplastic in appearance and was sent for biopsy- the final pathology is pending. 5. She has been advised to take her lansoprazole at noon instead of 830 to see if this could be interfering with vitamin D absorption. Her vitamin D level was 25 and she states she is taking 5000 units daily. Noon was the only time she was not taken any other medication. 6. We will plan for her to return in 2 weeks for cycle 5 day 15 daratumumab (#5 of 8 every two week treatments). I have asked for a CBC and CMP at that time. 7. I am tryng to set her up for a PET CT restaging. Her last PET/CT was July 2019. Although she has multiple calvarial lesions it would be nice to know what the remainder of her skeleton looks like. She was reminded to make sure that her blood sugars are less than 200 preferably less than 150 on the day of her PET scan. She is aware that this will not change her current treatment plan , but it will give us more information for monitoring her disease response. 8. Ms. Clark was instructed to contact us in the interim should questions or problems arise. 9. She was advised not to take pomalidomide directly with Tramadol, which she states she rarely takes more than twice a day. She states she does have hydrocodone if she needs it but doesn't like to take it unless absolutely necessary. 10. She may receive hydration/support care for dehydration prn. 11. We discussed at length her list of concerns. We did discuss that she is most likely going to have some side effects to the pomalidomide given her history of intolerance of all the other medications. She is agreeable to try it for the next few days to return 21 days. We will see how she does on her break and proceed accordingly. 12. UA today for complaints of right kidney pain and urinary frequency . 13. Total eyzo-tv-sabn time spent with Ms. Clark in regards to discussion of treatment plan, side effect identification and management and answering questions and providing reassurance was greater than 45 minutes.^ Signed By: Sue Patel-, [facility] Ruiz Rodriguez MD <<Signature on File>>
== END 2020-07-11 06:07 | disposition home or self-care (01) ==
PROVIDERS: PCP Electrodiagnostic Medicine; Visit Provider Nurse Practitioner
DX: Z51.12 Encounter for antineoplastic immunotherapy (principal); C90.00 Multiple myeloma not having achieved remission; N23 Unspecified renal colic; R35.0 Frequency of micturition; S01.00XD Unspecified open wound of scalp, subsequent encounter; Y84.8 Other medical procedures as the cause of abnormal reaction of the patient, or of later complication, without mention of misadventure at the time of the procedure; M47.9 Spondylosis, unspecified; M19.90 Unspecified osteoarthritis, unspecified site; I10 Essential (primary) hypertension; N80.9 Endometriosis, unspecified; F41.8 Other specified anxiety disorders; Z79.899 Other long term (current) drug therapy
CPT/HCPCS: 81001; 96367; 96413; 96415; 99215; J1100; J1200; J7040; J9145

== ENCOUNTER 2020-07-21 09:35 | Emergency (ER) | payer MEDICARE, SELFPAY ==
[2020-07-21 09:48] VITALS: BP 112/83; PULSE 71; RESP 18; TEMP 36.3; O2SAT 96; BMI 34.9
--- NOTE | 2020-07-21 09:50 | ED_ITS ---
HPI - Fall General: Chief Complaint: Fall Stated Complaint: FALL Time Seen by Provider: 07/21/20 09:44 Source: patient Mode of arrival: ambulatory Limitations: no limitations History of Present Illness: HPI Narrative: Mrs. Clark is a very nice 70-year-old female who comes in complaining of left chest and upper abdominal pain after a fall. Patient states she lost her balance while getting dressed then fell landing on her left flank area. The patient did hit her head but did not have loss of consciousness. Patient is on Eliquis for pulmonary embolism. Patient states she also has history of bone cancer and believes that her pain may be caused from this as well. She states she has pain back behind her left leg but does not increase with weightbearing. She is denying any other complaints or concerns or injuries. Associated symptoms-after fall: Reports abdominal pain and chest pain; Denies confusion, difficulty walking, headache(s), hematuria, lightheadedness, neck pain or vertigo Review of Systems Const: Denies: fever(s), chills, body aches, fatigue, malaise or diaphoresis Eyes: Denies: change in vision, blurry vision, photophobia, eye discomfort, eye discharge or eye redness ENMT: Denies: throat pain, odynophagia, hoarseness, swelling of lips/tongue, ear or mastoid pain, ear discharge, change in hearing or nasal discharge Card: Reports: chest pain; Denies: palpitations, irregular heart rhythm, edema, lightheadedness, syncope, pre-syncope, dyspnea on exertion or orthopnea Resp: Denies: dyspnea, productive cough, non-productive cough, wheezing, hemoptysis or chest congestion GI: Reports: abdominal pain; Denies: nausea, vomiting, hematemesis, coffee ground emesis, heartburn, diarrhea, constipation, GI cramping, hematochezia or melena : Denies: flank pain, dysuria, urinary frequency, urinary urgency or hematuria Musc: Reports: extremity pain; Denies: neck pain, back pain, extremity swelling, joint pain, joint swelling, joint redness, joint warmth or joint stiffness Skin/Breast: Denies: rash, pruritus, erythema or skin tenderness Neuro: Denies: headache(s), numbness in extremities, weakness in extremities, sensory changes, lack of coordination, difficulty walking, dizziness, vertigo, confusion, Slurred speech present or seizure-like activity Justin/Lymph: Denies: easy bruising, easy bleeding, petechiae, purpura or enlarged lymph nodes All/Imm: Denies: urticaria, throat swelling, tongue swelling, facial swelling or acute wheezing PFSH ED PFSH: Medical History Depression FHx: cholecystectomy Gastroesophageal reflux H/O intracranial mass (~07/20/18) Open biopsy/resection of mass, Dr Landry 07/20/18 Hypertension MRSA (methicillin resistant staph aureus) culture positive Multiple myeloma -has hx of IgG lambda myeloma -has had radiation treatment -f/u with Dr. 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 Landry -has had persistent open wound at area of biopsy; wound care daily Pulmonary embolism -has hx of bilateral PE -continue AC with Eliquis Surgical History H/O cataract removal with insertion of prosthetic lens History of appendectomy Hx of tonsillectomy Status post craniectomy Family History Mother CAD (coronary artery disease) Diabetes Sister CAD (coronary artery disease) Diabetes Brother Cancer Diabetes Social History Smoking and tobacco status: never smoked Alcohol intake: never Housing: House Marital status: Single History of recent travel: No Physical Exam Const: COMMON NORMALS: no acute distress, patient oriented x3, no limitations, healthy appearing and well nourished GENERAL APPEARANCE: cooperative, well kempt and well developed HENMT: COMMON NORMALS: normocephalic, atraumatic, external ears normal, EAC's normal and Normal external nose present HEAD & SCALP: normal to inspection, normocephalic and atraumatic FACE & SINUS: normal facial exam and face symmetric NOSE: Normal external nose present and Normal nares present EXTERNAL EAR: Yes external ears normal EXTERNAL AUDITORY CANAL: EAC's normal MOUTH: Normal oral and palatal mucosa present, lip normal and tongue normal Eye: COMMON NORMALS: Equal, round and reactive pupils present and conjunctivae normal GENERAL EYE: appearance normal, both eyes and all related structures ALIGNMENT: Yes alignment normal PERIORBITAL: periorbital findings normal EYELID: eyelids normal CONJUNCTIVA: Yes conjunctivae normal SCLERA: sclerae normal PUPIL: Yes Equal, round and reactive pupils present Neck/C-Spine: COMMON NORMALS: full ROM, no lymphadenopathy, supple, no meningeal signs and no JVD GENERAL: Yes normal visual inspection and Yes trachea midline Chest: COMMONS NORMALS: normal inspection of the chest and normal palpation of entire chest wall Resp: COMMON NORMALS: normal respiratory effort, No retractions, No use of accessory muscles and clear to auscultation bilaterally EFFORT & INSPECTION: Yes able to speak in complete sentences and Yes symmetric chest movement AUSCULTATION: clear to auscultation bilaterally, no crackles, no rales, no rhonchi and no wheezes Cardio: COMMON NORMALS: no JVD, regular rate, regular rhythm, S1 normal heart sound present and S2 normal heart sound present RATE: regular rate RHYTHM: regular rhythm HEART SOUNDS: S1 normal heart sound present, S2 normal heart sound present, no click, no gallops, no murmurs, no rubs and abnormal split S2 GI: COMMON NORMALS: Soft to palpation and No hepatosplenomegaly present PALPATION: Yes Soft to palpation, No Tenderness to palpation present (GI), No Guarding due to palpation present (GI), No Rigid due to palpation, Yes No hepatosplenomegaly present, No Hernia present, No Palpable mass present and No Pulsatile mass present : COMMON NORMALS: Yes no CVA tenderness BLADDER/KIDNEY EXAM: Yes no CVA tenderness EXTERNAL FEMALE EXAM: No Hernia present Back/Pelvis: COMMON NORMALS: no CVA tenderness, thoracic and lumbar spine normal to inspection, no thoracic nor lumbar tenderness and thoraco-lumbar ROM normal Extremity: COMMON NORMALS: normal to inspection, full ROM, capillary refill normal, no joint enlargement, no clubbing, cyanosis or edema and no calf tenderness Neuro: COMMON NORMALS: patient oriented x3, CN's II-XII intact bilaterally, moves all extremities, no focal motor deficits and no sensory deficits noted MENINGEAL SIGNS: Yes no meningeal signs SPEECH: speech normal Psych: COMMON NORMALS: mental status grossly normal, Normal thought process present, cooperative, normal affect, speech normal and activity/motor behavior normal APPEARANCE: Yes well kempt SPEECH: Yes normal speech THOUGHT PROCESS: Normal thought process present Skin: COMMON NORMALS: no rashes or lesions noted, turgor normal, no jaundice, no petechiae and no mottling GENERAL SKIN EXAM: no rashes or lesions noted a nd turgor normal Course Vital Signs: Vital signs: Vital Signs Temperature 97.3 F L 07/21/20 09:48 Pulse Rate 71 07/21/20 09:48 Respiratory Rate 18 07/21/20 09:48 Blood Pressure 112/83 07/21/20 09:48 Pulse Oximetry 96 07/21/20 09:48 MDM - Fall MDM Narrative: Medical decision making narrative: Mrs. Clark is a nice 70-year-old female who comes in after a non-syncopal fall at home. She is able to bear weight and walk without any pain but has focal pain over area of bruising on her left lateral/posterior thigh. The size of the hematoma has not grown since she has been here. The pain in her chest and abdomen appear to be superficial as the CT scan shows no evidence of deep internal injuries, contusions or lacerations. Patient is relieved to hear this. She is ready to go home. Head CT was normal as well this was performed secondary the patient being on an anticoagulant and having fall with a injury to her head. Patient de nies any other complaints or concerns and she is happy to hear her evaluation is negative. She agrees to follow-up with her doctor. Lab Data: Labs: Lab Results 07/21/20 07/21/20 07/21/20 Range/Units 10:40 10:40 10:40 WBC 6.1 (4.0-10.0) 10^3/ uL RBC 3.43 L (4.1-5.3) 10^6/u L Hgb 10.1 L (11.5-15.3) g/dL Hct 32.7 L (37.0-47.0) % MCV 95.3 (81-99) fL MCH 29.4 (28.0-34.0) pg MCHC 30.9 (30.0-36.0) g/dL RDW 15.1 (12.1-15.1) % Plt Count 319 (130-400) 10^3/c mm MPV 10.8 H (7.4-10.4) fL Neut % (Auto) 35.9 % Lymph % (Auto) 42.3 % Charles % (Auto) 19.3 % Eos % (Auto) 0.5 % Baso % (Auto) 1.8 % Neut # (Auto) 2.17 (1.8-7.7) 10^3/u L Lymph # (Auto) 2.6 (0.8-4.8) 10^3/u L Charles # (Auto) 1.2 H (0.2-0.9) 10^3/u L Eos # (Auto) 0.0 (0.0-0.8) 10^3/u L Baso # (Auto) 0.1 (0.0-0.1) 10^3/u L Nucleated RBC % (a uto) 0 % Nucleated RBCs # 0.0 /100WBC PT 12.50 (12.1-14.9) SECO NDS INR 0.91 (0.8-1.2) Sodium 135 L (136-145) mmol/L Potassium 4.7 (3.5-5.1) mmol/L Chloride 101 (98-107) mmol/L Carbon Dioxide 29 (22-29) mmol/L Anion Gap 9.7 (5-19) BUN 15 (8-23) mg/dL Creatinine 1.1 H (0.5-0.9) mg/dL GFR Calculation 49.2 L (90-130) mL/min Glucose 79 (65-115) mg/dL Calculated Osmolal ity 275 L (285-295) mOsm/k g Calcium 8.6 (8.5-10.5) mg/dL Total Bilirubin 0.2 (0.15-1.2) mg/dL AST 12 (0-32) U/L ALT 15 (0-33) U/L Alkaline Phosphata se 60 (35-105) IU/L Total Protein 5.3 L (6.6-8.7) g/dL Albumin 3.3 L (3.5-5.2) g/dL Globulin 2.0 (1.3-4.6) g/dL Imaging Data^: Pelvis: Attestation: I personally reviewed and interpreted this imaging study as follows: My impression: No acute fractures or dislocations Left Femur: Attestation: I personally reviewed and interpreted this imaging study as follows: My impression: No obvious fractures or dislocations. CT Head: Radiologist's impression: [address] [place] [address] CT Scan Report Signed Patient: Valentin Clark Unit #: [id number] : 1950 Age/Sex: 70 / F ADM Date: 07/21/20 Loc: ER Room/Bed: Attending Dr: Ordering Provider/Ordering MD: Andreina Gonzalez DO Date of Service: 07/21/20 Procedure(s): CT head wo con* [id number] Accession Number(s): [id number] Report Number: [id number] PROCEDURE INFORMATION: Exam: CT Head Without Contrast Exam date and time: 07/21/2020 9:50 AM Age: 70 years old Clinical indication: Injury or trauma and condition or disease; Fall; Initial encounter; Blunt trauma (contusions or hematomas); Consciousness not specified; Brain lesion and headache; Post-traumatic; Injury date: This morning; Prior surgery; Surgery date: 6+ months; Surgery type: Plasma cytoma removal, posterior skull; Patient HX: History of multiple myeloma, plasma cytoma removed from back of head about 2 years ago. ; Additional info: Fall/injury/on eliquis TECHNIQUE: Imaging protocol: Computed tomography of the head without contrast. Radiation optimization: All CT scans at this facility use at least one of these dose optimization techniques: automated exposure control; mA and/or kV adjustment per patient size (includes targeted exams where dose is matched to clinical indication); or iterative reconstruction. COMPARISON: 1. CT head wo con* [id number] 01/27/2020 2:00 PM 2. MR head wo/w con [id number] 06/05/2020 1:45:13 PM RADIATION DOSE METRICS: Total DLP (mGy-cm): 753.6 FINDINGS: Brain: There is no acute hemorrhage. No acute loss of pederson-white differentiation. No mass effect or midline shift. There is stable left inferior cerebellar encephalomalacia likely related to old infarct. This did show some contrast enhancement consistent persistent breakdown blood brain barrier associated with infarct on the prior MRI. Ventricles: There is age related portion enlargement of sulci and ventricles due to volume loss. No evidence of hydrocephalus. Bones/joints: There are multiple lytic calvarial lesions consistent with patient's history of myeloma. There are several new or increased lesions compared to CT. These however appear similar to the more recent MRI. Largest lesion is in the right parietal bone where there is absence of the outer table with soft tissue defect which likely relates to prior resection. There is partial erosion of the inner table of the skull which is stable. This area showed mild marginal enhancement on prior MRI. Sinuses: Small right maxillary sinus retention cyst or polyp.. Mastoid air cells: Minimal opacification in inferior posterior left mastoid air cells. Soft tissues: See Bones/joints finding. CT/CT head wo con* [id number] IMPRESSION: 1. No acute hemorrhage. 2. Multiple lytic lesions in skull consistent with myeloma without significant from most recent MRI. 3. Left cerebellar chronic infarct. Radiation Dose CTDIVOL = (mGy): DLP = 753.6 (mGy-cm) Dictated By: Kaleigh Wilcox MD Signed By: Kaleigh Wilcox MD Signed Date/Time: 07/21/20 1106 DD/ 1106 CT Chest/Abdomen/Pelvis: Radiologist's impression: [address] [address] [address] Scan Report Signed Patient: Valentin Clark Unit #: [id number] : 1950 Age/Sex: 70 / F ADM Date: 07/21/20 Loc: ER Room/Bed: Attending Dr: Ordering Provider/Ordering MD: Andreina Gonzalez DO Date of Service: 07/21/20 Procedure(s): CT chest abd pel w con* Accession Number(s): [id number] Report Number: [id number] PROCEDURE INFORMATION: Exam: CT Chest With Contrast Exam date and time: 07/21/2020 10:26 AM Age: 70 years old Clinical indication: Injury or trauma; Fall; Initial encounter; Generalized; Blunt trauma (contusions or hematomas); Injury date: This morning; Prior surgery; Surgery date: 6+ months; Surgery type: Stomach stapling; Patient HX: Multiple myeloma; Additional info: Abdominal pain TECHNIQUE: Imaging protocol: Computed tomography of the chest with intravenous contrast. Radiation optimization: All CT scans at this facility use at least one of these dose optimization techniques: automated exposure control; mA and/or kV adjustment per patient size (includes targeted exams where dose is matched to clinical indication); or iterative reconstruction. Contrast material: OMNIPAQUE 300; Contrast volume: 95 ml; Contrast route: INTRAVENOUS (IV); COMPARISON: CT angio chest PE protcl [id number] 12/15/2019 3:00 PM RADIATION DOSE METRICS: Total DLP (mGy-cm): 2251.09 FINDINGS: Tubes, catheters and devices: Termination of med port catheter in the innominate vein. Lungs: Mild interstitial prominence and parenchymal stranding. No pulmonary contusion. Pleural space: No pleural effusion. Heart: Borderline cardiomegaly and coronary artery calcification. Mediastinal space: Small hiatal hernia. Aorta: Normal caliber of the thoracic aorta. Lymph nodes: Subcentimeter lymph nodes. Bones/joints: Osteopenia and degenerative change. Old rib fractures. Soft tissues: Punctate left breast calcification. IMPRESSION: No acute post-traumatic thoracic injury. PROCEDURE INFORMATION: Exam: CT Abdomen And Pelvis With Contrast Exam date and time: 07/21/2020 10:26 AM Age: 70 years old Clinical indication: Injury or trauma; Fall; Initial encounter; Generalized; Blunt trauma (contusions or hematomas); Injury date: This morning; Prior surgery; Surgery date: 6+ months; Surgery type: Stomach stapling; Patient HX: Multiple myeloma; Additional info: Abdominal pain TECHNIQUE: Imaging protocol: Computed tomography of the abdomen and pelvis with intravenous contrast. Radiation optimization: All CT scans at this facility use at least one of these dose optimization techniques: automated exposure control; mA and/or kV adjustment per patient size (includes targeted exams where dose is matched to clinical indication); or iterative reconstruction. Contrast material: OMNIPAQUE 300; Contrast volume: 95 ml; Contrast route: INTRAVENOUS (IV); COMPARISON: CT angio chest PE protcl [id number] 12/15/2019 3:00 PM RADIATION DOSE METRICS: Total DLP (mGy-cm): 2251.09 FINDINGS: Liver: No focal hepatic mass. Gallbladder and bile ducts: Status post cholecystectomy. Pancreas: No pancreatic mass or ductal dilatation. Spleen: No splenomegaly. Adrenals: Unremarkable adrenals. Kidneys and ureters: 2.3 cm right renal cyst. No hydronephrosis. Stomach and bowel: Combined small bowel and colonic dilatation along with prominent stool. Diverticula, without pericolonic inflammation. Appendix: Nonvisualization of the appendix. Intraperitoneal space: Scattered surgical clips with associated beam hardening artifact. No free fluid. Vasculature: Normal caliber of the abdominal aorta. Lymph nodes: Subcentimeter lymph nodes. Bladder: Normal bladder morphology. Reproductive: Unremarkable as visualized. Bones/joints: Osteopenia. Degenerative change and disc bulging. Soft tissues: Multiple ventral wall hernias. CT/CT chest abd pel w con* IMPRESSION: 1. No acute post-traumatic injury in the abdomen or pelvis. 2. Nontraumatic findings as described above. Radiation Dose CTDIVOL = (mGy): DLP = 2251.09 2251.09 (mGy-cm) Dictated By: Jax Vick MD Signed By: Jax Vick MD Signed Date/Time: 0 07/21/20 1110 DD/ 1109 Discharge Plan Discharge Patient Disposition: Home Clinical Impression: Contusion Qualifiers: Encounter type: initial encounter Contusion area: thigh Laterality: left Qualified Code(s): S70.12XA - Contusion of left thigh, initial encounter Condition: Stable Prescriptions: No Action acetaminophen 500 mg tablet 500 mg PO Q6H PRNRF: 0 sennosides [Evac-U-Gen (sennosides)] 8.6 mg tablet 8.6 mg PO BID PRNRF: 0 bisacodyl 5 mg tablet 5 mg PO DAILY PRNRF: 0 calcium carbonate [Calcium 600] 600 mg calcium (1,500 mg) tablet 600 mg PO DAILY RF: 0 cholecalciferol (vitamin D3) 50 mcg (2,000 unit) capsule 50 mcg PO DAILY RF: 0 Adult Probiotic 3 billion cell capsule 3,000 mmu cells PO DAILY RF: 0 metoprolol succinate 25 mg tablet extended release 24 hr 12.5 mg PO DAILY Qty: 45 RF: 3 lorazepam 0.5 mg Tablet 0.5 mg PO DAILY PRN (Reason: Anxiety) RF: 0 pantoprazole 40 mg tablet,delayed release (DR/EC) 40 mg PO BID RF: 0 albuterol sulfate [Ventolin HFA] 90 mcg/actuation HFA aerosol inhaler 1 puff INHALATION Q4H PRN (Reason: Shortness Of Breath) RF: 0 furosemide 40 mg tablet 40 mg PO EVERY OTHER DAY PRN (Reason: edema) RF: 0 fluoxetine 20 mg Tablet 20 mg PO DAILY RF: 0 tramadol 50 mg Tablet 50 mg PO Q6H PRN (Reason: Pain) RF: 0 ondansetron 4 mg Tablet,Disintegrating 4 mg PO Q6H PRN (Reason: Nausea) RF: 0 cyclobenzaprine 5 mg Tablet 5 mg PO TID PRN (Reason: Anxiety) RF: 0 Eliquis 2.5 mg Tablet 2.5 mg PO BID RF: 0 potassium chloride 10 mEq capsule, extended release 10 meq PO DAILY RF: 0 dexamethasone 4 mg tablet 4 mg PO .COMPLEX RF: 0 calcitriol 0.25 mcg capsule 0.5 mcg PO DAILY RF: 0 Discharge Orders: Discharge Order (Routine); Ordered 07/21/20 Ordered By: Andreina Gonzalez Referrals: Luis Manuel Jimenes DO [Primary Care Provider] - 1-3 days Discharge Diet: Advance as tolerated Discharge Activity: Increase activity as tolerated Patient Instructions: Contusion in Adults (ED) Activity Restrictions/Additional Instructions: Please return to the ER immediately for any of the signs or symptoms listed on your discharge instruction sheets, worsening/changing of your symptoms, you are not getting better as quickly as expected, or for ANY other cause or concerns. If your pain worsens or your symptoms worsen in any way please return to the ER immediately for recheck. If there are any x-ray discrepancies we will contact you and let you know. 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
--- NOTE | 2020-07-21 09:52 | XRR_ITS ---
PROCEDURE INFORMATION: Exam: XR Pelvis Exam date and time: 07/21/2020 10:50 AM Age: 70 years old Clinical indication: Injury or trauma; Fall; Initial encounter; Blunt trauma (contusions or hematomas); Left; Pelvic region; Additional info: Fall/injury TECHNIQUE: Imaging protocol: XR pelvis. Views: 1 or 2 view. COMPARISON: CR Hip 2-3v RIGHT wwo Pelv* [id number] 06/21/2019 7:07 AM FINDINGS: Bones/joints: Osteopenia and degenerative change. No acute bony injury or malalignment. Soft tissues: Scattered surgical clips. Diffuse soft tissue enlargement. Gastrointestinal tract: Mild bowel dilatation and prominent stool. Organs: Contrast in the bladder. XR/XR pelvis 1-2V* [id number] IMPRESSION: Osteopenia and degenerative change.
--- NOTE | 2020-07-21 09:52 | XRR_ITS ---
PROCEDURE INFORMATION: Exam: XR Left Femur Exam date and time: 07/21/2020 10:48 AM Age: 70 years old Clinical indication: Injury or trauma; Fall; Initial encounter; Blunt trauma; Hip and thigh or upper leg and knee; Bilateral; Left; Additional info: Fall/injury TECHNIQUE: Imaging protocol: XR Left femur. Views: 2 views. COMPARISON: No relevant prior studies available. FINDINGS: Bones/joints: Osteopenia and degenerative change. No acute bony injury or malalignment in the visualized left femur. Soft tissues: Soft tissue enlargement and skin folds. XR/XR femur LT min 2V* [id number] IMPRESSION: Osteopenia and degenerative change.
[2020-07-21] MEDS: iohexol 300 mg/mL 100 mL Btl IV (10:37)
[2020-07-21 10:50] LABS: Basophils # 0.1 10^3/uL (0.0-0.1); Basophils % 1.8 %; Eosinophils % 0.5 %; Hematocrit 32.7 % (37.0-47.0); Hemoglobin 10.1 g/dL (11.5-15.3); Lymphocytes # 2.6 10^3/uL (0.8-4.8); Lymphocytes % 42.3 %; Mean Corpuscular HGB Conc 30.9 g/dL (30.0-36.0); Mean Corpuscular Hemoglobin 29.4 pg (28.0-34.0); Mean Corpuscular Volume 95.3 fL (81-99); Mean Platelet Volume 10.8 fL (7.4-10.4); Monocytes # 1.2 10^3/uL (0.2-0.9); Monocytes % 19.3 %; Neutrophils # 2.17 10^3/uL (1.8-7.7); Neutrophils % 35.9 %; Nucleated Red Blood Cells % 0 %; Platelet Count 319 10^3/cmm (130-400); Red Blood Count 3.43 10^6/uL (4.1-5.3); Red Cell Distribution Width 15.1 % (12.1-15.1); White Blood Count 6.1 10^3/uL (4.0-10.0)
[2020-07-21] MEDS: sodium chloride 0.9% 1,000 ML 100 ML IV (10:53)
[2020-07-21 11:02] LABS: INR 0.91 (0.8-1.2)
[2020-07-21 11:09] LABS: Alanine Aminotransferase 15 U/L (0-33); Albumin Level 3.3 g/dL (3.5-5.2); Alkaline Phosphatase 60 IU/L (35-105); Anion Gap 9.7 (5-19); Aspartate Amino Transferase 12 U/L (0-32); Blood Urea Nitrogen 15 mg/dL (8-23); Calcium 8.6 mg/dL (8.5-10.5); Carbon Dioxide 29 mmol/L (22-29); Chloride 101 mmol/L (98-107); Glomerular Filtration Rate 49.2 mL/min (90-130); Glucose 79 mg/dL (65-115); Osmolality Calculated 275 mOsm/kg (285-295); Potassium 4.7 mmol/L (3.5-5.1); Sodium 135 mmol/L (136-145); Total Bilirubin 0.2 mg/dL (0.15-1.2); Total Protein 5.3 g/dL (6.6-8.7)
[2020-07-21 11:44] VITALS: BP 120/83; PULSE 58; RESP 16; O2SAT 97
== END 2020-07-21 11:38 | disposition home or self-care (01) ==
PROVIDERS: Emergency Provider Emergency Medicine; PCP Electrodiagnostic Medicine
DX: S70.12XA Contusion of left thigh, initial encounter (principal); Z79.01 Long term (current) use of anticoagulants; I10 Essential (primary) hypertension; W01.0XXA Fall on same level from slipping, tripping and stumbling without subsequent striking against object, initial encounter
CPT/HCPCS: 12345; 36415; 70450; 71260; 72170; 73552; 74177; 80053; 85025; 85610; 96360; 96361; 99282; 99283; J7030; Q9967

== ENCOUNTER 2020-07-24 08:03 | Outpatient (CLI) | payer MEDICARE, SELFPAY ==
[2020-07-24 09:24] LABS: Basophils # 0.2 10^3/uL (0.0-0.1); Basophils % 3.3 %; Eosinophils % 0.4 %; Hemoglobin 10.2 g/dL (11.5-15.3); Lymphocytes # 2.2 10^3/uL (0.8-4.8); Lymphocytes % 31.2 %; Mean Corpuscular HGB Conc 30.9 g/dL (30.0-36.0); Mean Corpuscular Volume 97.1 fL (81-99); Mean Platelet Volume 11.6 fL (7.4-10.4); Monocytes % 13.9 %; Neutrophils # 3.55 10^3/uL (1.8-7.7); Neutrophils % 50.9 %; Nucleated Red Blood Cells % 0 %; Platelet Count 298 10^3/cmm (130-400); Red Cell Distribution Width 15.4 % (12.1-15.1)
[2020-07-24 09:43] LABS: Alanine Aminotransferase 16 U/L (0-33); Albumin Level 3.2 g/dL (3.5-5.2); Alkaline Phosphatase 62 IU/L (35-105); Aspartate Amino Transferase 13 U/L (0-32); Blood Urea Nitrogen 12 mg/dL (8-23); Calcium 8.4 mg/dL (8.5-10.5); Carbon Dioxide 26 mmol/L (22-29); Chloride 107 mmol/L (98-107); Glomerular Filtration Rate 71.1 mL/min (90-130); Glucose 87 mg/dL (65-115); Osmolality Calculated 285 mOsm/kg (285-295); Sodium 140 mmol/L (136-145); Total Bilirubin 0.4 mg/dL (0.15-1.2); Total Protein 5.2 g/dL (6.6-8.7)
[2020-07-24 09:44] LABS: Immunoglobulin IGA 54 mg/dL (70-400); Immunoglobulin IGG 522 mg/dL (700-1600)
[2020-07-24 10:00] LABS: Immunoglobulin IGM 19 mg/dL (40-230)
[2020-07-25 10:37] LABS: PROTEIN, TOTAL 4.5 g/dL (6.1-8.1)
[2020-07-25 13:26] LABS: LAMBDA LIGHT CHAIN, FREE, SERU 87.2 mg/L (5.7-26.3)
[2020-07-25 15:52] LABS: ABNORMAL PROTEIN BAND 1 0.3 g/dL (NONE DETECTED); ABNORMAL PROTEIN BAND 2 0.1 g/dL (NONE DETECTED); ALBUMIN 2.7 g/dL (3.8-4.8); ALPHA 1 GLOBULIN 0.2 g/dL (0.2-0.3); ALPHA 2 GLOBULIN 0.6 g/dL (0.5-0.9); BETA 1 GLOBULIN 0.3 g/dL (0.4-0.6); BETA 2 GLOBULIN 0.2 g/dL (0.2-0.5); GAMMA GLOBULIN 0.5 g/dL (0.8-1.7)
== END 2020-07-24 08:04 | disposition home or self-care (01) ==
LOC: ONCMED 08:03
PROVIDERS: PCP Electrodiagnostic Medicine; Visit Provider Nurse Practitioner
DX: C90.00 Multiple myeloma not having achieved remission (principal); Z51.81 Encounter for therapeutic drug level monitoring; Z79.899 Other long term (current) drug therapy
CPT/HCPCS: 36591; 80053; 82784; 83883; 84155; 84165; 85025

== ENCOUNTER 2020-07-25 09:22 | Outpatient (CLI) | payer MEDICARE, SELFPAY ==
[2020-07-25 10:45] LABS: Add Urine Microscopic? NO
[2020-07-25 10:54] LABS: Bilirubin Urine Neg (NEGATIVE); Blood Urine Neg (Negative); Glucose Urine UA Norm (Normal); Ketones Urine Negative (Negative); Leukocyte Esterase Urine Negative (Negative); Nitrate Urine Negative (Negative); Protein Urine Neg (Negative); Specific Gravity, Urine 1.015 (1.005-1.030); Urine Appearance Clear (CLEAR); Urine Color Yellow (Yellow); Urobilinogen Urine Norm (Negative)
--- NOTE | 2020-07-25 11:16 | XRR_ITS ---
PROCEDURE INFORMATION: Exam: XR Right Femur Exam date and time: 07/25/2020 12:13 PM Age: 70 years old Clinical indication: Injury or trauma; Fall; Initial encounter; Blunt trauma; Thigh or upper leg; Right; Additional info: Myeloma/pain/fell 1 week ago TECHNIQUE: Imaging protocol: XR Right femur. Views: 2 views. COMPARISON: CR Knee 2 views, RIGHT [id number] 12/02/2018 8:33 PM FINDINGS: Bones/joints: No fracture. No dislocation. Soft tissues: No radiopaque foreign body. XR/XR femur RT min 2V* [id number] IMPRESSION: No acute osseous abnormality.
--- NOTE | 2020-07-25 11:16 | XRR_ITS ---
PROCEDURE INFORMATION: Exam: XR Right Ankle Exam date and time: 07/25/2020 12:13 PM Age: 70 years old Clinical indication: Injury or trauma; Fall; Initial encounter; Blunt trauma; Ankle; Right; Additional info: Myeloma/pain/fell 1 week ago TECHNIQUE: Imaging protocol: XR Right ankle. Views: 3 or more views. COMPARISON: No relevant prior studies available. FINDINGS: Bones/joints: No fracture. No dislocation. The ankle mortise is intact. There are calcaneal plantar and Achilles tendon insertion enthesophytes. Soft tissues: There is superficial soft tissue swelling. XR/XR ankle RT min 3V* [id number] IMPRESSION: Soft tissue injury without osseous injury.
--- NOTE | 2020-07-25 11:16 | XRR_ITS ---
PROCEDURE INFORMATION: Exam: XR Right Tibia and Fibula Exam date and time: 07/25/2020 12:13 PM Age: 70 years old Clinical indication: Injury or trauma; Fall; Initial encounter; Blunt trauma; Lower leg; Right; Additional info: Myeloma/pain/fell 1 week ago TECHNIQUE: Imaging protocol: XR Right tibia and fibula. Views: 2 views. COMPARISON: CR Knee 2 views, RIGHT [id number] 12/02/2018 8:33 PM FINDINGS: Bones/joints: No fracture. No dislocation. Soft tissues: No radiopaque foreign body. XR/XR tibia fibula RT 2V [id number] IMPRESSION: No acute osseous abnormality.
--- NOTE | 2020-07-25 11:16 | XRR_ITS ---
PROCEDURE INFORMATION: Exam: XR Pelvis Exam date and time: 07/25/2020 12:11 PM Age: 70 years old Clinical indication: Injury or trauma; Fall; Initial encounter; Blunt trauma (contusions or hematomas); Does not apply; Pelvic region; Additional info: Myeloma/pain/fell 1 week ago TECHNIQUE: Imaging protocol: XR pelvis. Views: 1 or 2 view. COMPARISON: CR XR pelvis 1-2V* [id number] 07/21/2020 10:40 AM FINDINGS: Bones/joints: No acute fracture. No dislocation. No hip joint space narrowing, but small osteophytes off of the superior acetabular margin bilaterally. The symphysis pubis and sacroiliac joints are not diastatic. Soft tissues: No acute soft tissue abnormality. XR/XR pelvis 1-2V* [id number] IMPRESSION: No acute osseous abnormality.
--- NOTE | 2020-07-28 13:27 | ONC FU_ITS ---
Dr. Rodriguez Patient Follow-Up Note Patient: Valentin Clark Unit #: [id number]: 1950 Dicatated By: Ruiz Rodriguez M.D.Date of Visit:Jul 25, 2020 Onc Med Follow-up/Prog Note Chief Complaint: Mulitple myeloma. 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 In March 2018 she had bumped her head at work and in the process of that she became aware of a small lump, though it was actually in a slightly different area. She then noticed that the lump was getting larger. Evaluation with head MRI on 06/07/2018 showed evidence of a right parietal occipital extra-axial neoplasm, felt to be most likely meningeal in origin. It was noted to exert mass effect on the right parietal and occipital lobes, but without associated midline shift or white matter parenchymal edema. The lesion was noted to invade through the calvarium and into the subcutaneous parietal occipital scalp soft tissues. The mass measured 5.7 x 3.5 x 6 cm. 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 The area of occlusion was noted to extend over approximately 4.3 cm. She was seen by Dr. Landry and subsequently referred for neurosurgery evaluation at [facility]. Initially they had considered possible surgical resection. Her further evaluation there apparently included laboratory findings which were suspicious for myeloma, and it was recommended that she have treatment with radiation. She was seen here for further management on 07/14/2018. She then returned to Dr. Landry, and on 07/20/2018 she underwent open biopsy/resection of the extracranial extent of the mass. 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 Her further evaluation included protein electrophoresis which showed an IgG lambda monoclonal protein in the serum quantitating at 0.48 g/dL. The serum free light chain assay showed elevated lambda light chain at 374.65 mg/L with decreased kappa/lambda ratio at 0.06. The 24-hour urine protein electrophoresis showed no monoclonal protein. There were no other areas of lytic bone involvement noted on her skeletal survey. Bone marrow aspiration/biopsy on 07/30/2018 showed a monotypic plasma cell population, but it comprised only 2% of the total cellularity. A FISH panel for myeloma was unrevealing, and the standard chromosome analysis was normal. She was referred to Dr. Kaur, and she began radiation to the lesion on 07/30/2018. She completed treatment on 09/02/2018 to a total dose of 5,000 cGy. She had evaluation with CT pulmonary angiogram on 09/14/2018. It showed moderate bilateral pulmonary embolic burden. She began on anticoagulation with apixaban. During her subsequent follow-up she continued to have an open wound at the site of the plasmacytoma in the parietal-occipital scalp region. As of her follow-up visit on 10/19/2018 her M protein was stable 0.37 g/dL. In the absence of any evidence of symptomatic myeloma, she had otherwise just continued on observation/expectant management. However, due to her persistent scalp wound she had a repeat brain MRI on 01/11/2019. It showed evidence of residual neoplastic process at the resection site. There was associated dural involvement but with improved signal characteristics and decreased enhancement compared to the study from September 2018. She was seen for a follow-up visit on 01/20/2019. In view of the MRI findings, she had further evaluation with PET/CT on 02/03/2019. It showed increase in size and expansile hypermetabolic lesion within the left ilium with extension of hypermetabolic tumor into the adjacent left iliac muscle. There was a new hypermetabolic lytic process within the right S1/S2 region. A large lytic mass within the posterior calvarium did not appear to have active hypermetabolism. Also noted, though, was a hypermetabolic lesion within the medullary canal of the distal left femoral diametaphysis and an additional hypermetabolic focus in the anterior cortex of the distal right femur concerning for additional areas of myeloma. In the setting of obvious progression of her myeloma, she was recommended to begin a trial of therapy with Velcade/Revlimid/dexamethasone. Her other medical illnesses include hypertension and degenerative arthritis/degenerative disease of the spine. She has associated cervical and lumbar spinal stenosis. She has a history of endometriosis, and she has anxiety/depression. She is a nonsmoker. INTERIM HISTORY: She began cycle 1 of VRd on 02/23/2019. At that time she also received an infusion of IV Zometa for the lytic bone involvement. At that time, there was a slight increase in her baseline creatinine level to 1.2 mg/dL, and did opt to reduce her Revlimid dosage because of that. She experienced significant toxicity following her day 1 treatment, mainly having become listless and out of it over the next 4-5 days. She also lost her appetite. Her follow-up lab studies showed a drop in her calcium from baseline 10.3 mg/dL to 6.5 mg/dL with albumin 3.5 g/dL. With that finding, I did opt to hold her further Velcade, but she continued Revlimid and dexamethasone. As of 03/09/2019 she restarted treatment with Velcade at 1.3 mg/m??? weekly with Revlimid reduced to 15 mg daily on a 21/28 day schedule and the dexamethasone dosage reduced to 20 mg weekly. As of her day 15 visit, she was tolerating the treatment well. At that time she received the full dosage of Velcade, and she continued Revlimid 15 mg daily for 7 more days. She had subsequently developed diarrhea, and at her followup visit on 04/07/2019 her treatment was put on hold. She eventually continued with cycle 3 on 05/05/2019 with the Revlimid dosage further reduced to 10 mg daily on a 21/28 day schedule and with the Velcade and dexamethasone dosed weekly. Her repeat SPEP at that time showed residual M protein quantitating at 0.3 g/dL. The free light chain assay showed kappa light chain 100 mg/L, lambda light chain 122 mg/L, and kappa/lambda ratio 0.82. Her treatment was put on hold again at day 8 due to worsening neuropathy. She subsequently was able to continue the Revlimid and dexamethasone, but the Velcade remained on hold. Her repeat protein electrophoresis on 06/09/2019 showed stable M protein at 0.3 g/dL. The serum free light chain assay showed normal kappa/lambda ratio at 0.84. She was seen for a follow-up visit on 06/21/2019. At that point she appeared stable clinically. Her blood counts were adequate, and she continued with her 4th cycle of treatment. Her repeat protein electrophoresis on 07/13/2019 showed residual M protein quantitating at 0.2 g/dL. The free light chain assay showed elevated kappa light chain at 31.0 mg/L and elevated lambda light chain at 33.0 mg/L with normal kappa/lambda ratio at 0.94. Her 24-hour urine protein electrophoresis showed no detectable monoclonal protein. She was seen for a follow-up visit on 07/19/2019. At that point she complained of increased fatigue and excessive somnolence, and I did opt to put her treatment on hold. A subsequent restaging PET/CT showed no FDG avid sites of involvement. Her repeat head MRI on 08/10/2019 showed no evidence of recurrent or progressive disease. With those findings, I opted to transition her treatment to maintenance Revlimid at 5 mg daily, which she started following her visit on 08/17/2019. Her further laboratory studies on 09/22/2019 also showed a low B12 level at 189 pg/mL, and she subsequently started B12 replacement therapy. A sleep study in October 2019 showed moderate obstructive sleep apnea. At her follow-up visit on 11/28/2019 she was still mildly anemic, and transferrin saturation was still low at 17% despite being on oral iron replacement. As such, she was then given parenteral iron replacement with infusions of Injectafer on 11/28/2019 and on 12/05/2019. With the 11/28 visit she also was given denosumab 120 mg by subcutaneous injection for the lytic bone involvement. On 12/06/2019 she was admitted to the hospital with symptomatic hypocalcemia, serum calcium 5.9 mg/dL with albumin 2.9 g/dL. Renal function was stable with creatinine 1.0 mg/dL, but her potassium also was low at 3.2 mmol/L. She was given IV calcium and potassium replacement. She then continued further IV replacement as an outpatient. Despite that she was readmitted to the hospital with hypocalcemia on 12/15/2019. She was discharged home on 12/23/2019. Her evaluation included CT pulmonary angiogram which showed no evidence of pulmonary embolism. There was evidence of cardiomegaly, a small pericardial effusion, and small bilateral pleural effusions. Echocardiogram showed small, hemodynamically insignificant pericardial effusion and normal left ventricular function. She then returned here on 12/27/2019 and she has since then continued IV fluid and electrolyte replacement, daily for the first week and then on Mondays, Wednesdays, and Fridays. Despite that, she continued to feel weak and shaky, and she had ongoing complaints of nausea and anorexia. She continued to require IV fluid and electrolyte replacement but she did show gradual recovery. Her further treatment remained on hold. Repeat protein electrophoresis on 01/16/2020 showed stable M protein at 0.4 g/dL. The serum free light chain assay showed elevated free lambda light chain at 254 mg/L with decreased kappa/lambda ratio at 0.16. There was no monoclonal protein identified in the 24-hour urine protein electrophoresis. Restaging PET/CT on 02/24/2020 showed findings concerning for disease progression with new areas of marrow hypermetabolism within the right proximal humerus and within the bilateral distal femoral diametaphysis. The existing areas of involvement within the left ilium and sacrum showed further decrease in FDG uptake. With those findings, I had recommended that she proceed to second line treatment with daratumumab/dexamethasone. She was scheduled to come in last week for her initial infusion of daratumumab, but the treatment was deferred when she developed low-grade fever and other acute symptoms. She eventually was able to begin her initial infusion of daratumumab on 03/21/2020. Her repeat free light chain assay prior to that showed further increase in the lambda light chain to 537 mg/L with kappa/lambda ratio 0.06. She tolerated the daratumumab with no adverse effects, and she then continued treatment weekly. On 05/03/2020 she underwent EGD and colonoscopy by Dr. Jimenes. The EGD showed no significant abnormal findings, and the colonoscopy showed just 2 small polyps in the rectum. 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 As of 05/09/2020 she had completed her 8th infusion on the weekly schedule, and as of 05/16/2020 she received her 1st of 8 planned infusions at the 2-week interval. Her M protein at that point was stable at 0.4 g/dL. The free light chain assay showed a decrease in the free lambda light chain from 537.42 205.2 mg/L. However, her repeat head MRI on 06/05/2020 showed significant progression of the myelomatous lesions within the skull compared to the study from January 2020. Numerous calvarial lesions were now present, the largest in the right parietal bone measuring 2.2 cm. The postoperative resection site in the posterior right parietal lobe showed significantly more enhancement with slightly more dural enhancement, also suspicious for progression of neoplastic changes. With that finding, she had continued the daratumumab and dexamethasone, but beginning on 06/27/2020 she added pomalidomide at a reduced dosage of 2 mg daily on a -day schedule. Her repeat PET/CT on 07/12/2020 showed a large lytic lesion within the posterior right calvarium, but without associated hypermetabolism. There were no new lesions identified within the calvarium. There was persistent hypermetabolism noted within the proximal right humerus, SUV 3.6, and there was new hypermetabolism within the marrow of the proximal left humerus, SUV 3.6. There was decrease in FDG uptake within the medial left ilium. There was persistent hypermetabolism noted in the right femoral diametaphysis and in the distal left femoral diametaphysis. There was new hypermetabolism noted in the proximal left tibia. Overall the findings were concerning for disease progression. She is seen for a followup visit. She complains that she has been feeling a lot worse since she started taking the pomalidomide. Even at the reduced dosage, she had side effects similar to what she experienced with lenalidomide, namely fatigue and excessive somnolence. She also complains that she is losing balance and that she is having to walk with a cane. She has been prone to falling. She has limited activity. Her ECOG score is 2. She does not have good appetite, but she has gained weight. She does not have fever. She says the night sweating has stopped. She has had no mouth sores. She is short of breath. She has a little bit of cough. She does not complain of chest pain. She has some nausea. Her acid reflux has improved with medication. The diarrhea also completely resolved, and she is now having a little bit of constipation. She has urinary frequency and urgency. She has new pain in the posterior hip area on the right side. She also has pain in her right leg and right ankle. She has been having headaches and she has poor balance. She has some numbness intermittently in the right leg. Medications: Acetaminophen 2 Tablet (of 500 mg) Oral PRN, Bisacodyl 1 Tablet (of 5 mg) Tablet, enteric coated Oral daily, Calcitriol 2 Capsule (of .25 mcg) Oral daily, calicum 600 Tabminder (of 600 mg) Tablet Oral b.i.d., Cyclobenzaprine HCl 1 Tablet (of 5 mg) Oral PRN, Dexamethasone (4 mg) Tablet Oral Take as Directed, Eliquis 1 Tablet (of 2.5 mg) Oral b.i.d., FLUoxetine HCl 1 Tablet (of 10 mg) Oral daily, FLUoxetine HCl 1 Capsule (of 20 mg) Oral daily, Furosemide 1 - 2 Tablet (of 40 mg) Oral daily PRN, GoodSense Stimulant Laxative 2 Tablet (of 8.6-50 mg) Oral t.i.d. PRN, HYDROcodone-Acetaminophen 1 - 2 Tablet (of 5-325 mg) Oral q 4 hours PRN, Lansoprazole 1 Capsule (of 30 mg) Capsule Delayed Release Oral daily, Loperamide A-D 1 Tablet (of 2 mg) Oral PRN, Loratadine 1 Tablet (of 10 mg) Oral daily PRN, LORazepam 1 Tablet (of 0.5 mg) Oral at bedtime, Metoprolol Tartrate 0.5 Tablet (of 25 mg) Oral b.i.d., Ondansetron HCl 1 - 2 Tablet (of 4 mg) Oral PRN, Pantoprazole Sodium 1 Tablet (of 40 mg) Tablet, enteric coated Oral b.i.d., Pomalyst 1 Capsule (of 2 mg) Oral daily for 21 days, Potassium Chloride ER 1 Tablet (of 20 meq) Tablet, controlled release Oral daily, Probiotic Acidophilus 1 Capsule Tablet Oral b.i.d., Ventolin HFA Aerosol, solution Inhalation, Vitamin D3 2 Capsule (of 2000 Units) Oral daily Allergies: BusPIRone HCl, Codeine and Related, Levaquin, and Morphine Derivatives. Review of Systems: Constitutional - Her energy is low again. She reports that she has been sleeping alot and she feels very weak. She reports her appetite is poor but she is able to eat. Her weight is up 8 pounds from last visit. No fevers. Her night sweats, or hot flashes. ECOG score is 2, ENMT - She has sinus congestion/drainage. No mouth sores. No sore throat or difficulty swallowing, Hematologic/Lymphatic - No abnormal bruising or bleeding, Respiratory - She feels short of breath. No cough. No pleuritic pain or hemoptysis, Cardiovascular - No angina pain. No palpitations, Gastrointestinal - She has nausea. No vomiting. Her heartburn is adequately managed with pantoprazole. Her diarrhea is improved and she is now having constipation. No blood in the stool or black stools, Genitourinary (F) - No dysuria or hematuria. She has urinary frequency. No urgency or incontinence, Musculoskeletal - She had a fall over the weekend. She continues to have pain in her left ankle and in her hips, Integumentary - No skin complications, Neurologic - She has been having increase pains in her head. No dizziness. No numbness or tingling. No other focal neurologic symptoms, Psychiatric - She is back on 30 mg Prozac for her anxiety and depression. No insomnia. Vital Signs: Performed on Jul 25, 2020 09:35 Height - 63.50 in Weight - 202.4 lbs (HIGH) BSA - 1.95 sq.m BMI - 35.29 (HIGH) Temperature - 97.3 F (LOW) Pulse - 68 /min Respiration - 24 /min BP - 119/67 mm(hg) O2 Sat - 95 % (LOW) Pain - 5 Physical Examination: Constitutional - She appears generally weak, Eyes - Sclerae nonicteric. Conjunctivae clear, ENMT - No lesions noted in the oral cavity, Hematologic/Lymphatic - No cervical, clavicular, or axillary adenopathy, Respiratory - Lungs sound clear, Cardiovascular - Heart rhythm is regular. There is a II/ systolic murmur. There is no gallop or rub noted, Abdomen - Soft. Liver and spleen are not enlarged. There is no abdominal mass or ascites noted and there is no inguinal adenopathy, Extremities - No edema, Integumentary - She still has an open wound in the vertex area of her scalp, Neurologic - No focal neurologic deficits noted. Lab/Imaging: CBC shows hemoglobin 10.2 g, white blood cell count 7000, and platelet count 298,000. Comprehensive metabolic profile is unremarkable except for slightly low albumin at 3.2 g/dL. Her protein electrophoresis shows small M protein spike at 0.3 g/dL. The free light chain assay shows significant decrease in the free lambda light chain to 87.2 mg/L with kappa/lambda ratio in the low normal range at 0.30. Impression: 1. 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 She underwent resection/open biopsy of the extracranial portion of the mass on 07/20/2018. 2. She then underwent radiation, completed on 09/02/2018 to a total dose of 5000 cGy. 3. She has persistent open wound at the biopsy site. 4. She had associated IgG lambda monoclonal protein in the serum and 2% monoclonal plasma cells in the bone marrow, consistent with underlying myeloma. Initially it appeared to otherwise not be symptomatic. 5. She was found to have pulmonary emboli by CT pulmonary angiogram on 09/14/2018. She began anticoagulation with apixaban. Her other medical illnesses include: 6. Degenerative arthritis and degenerative disease of the spine with associated cervical and lumbar spinal stenosis. 7. Hypertension. 8. Endometriosis. 9. Anxiety/depression. During subsequent followup she had increasing pain in the left hip/buttock area. Her repeat protein electrophoresis studies showed only a slight increase in her M protein, but her repeat PET/CT on 02/03/2019 showed significant progression of lytic bone involvement in the left ilium. There was also possible involvement in the distal right femur. The area of lytic involvement in the calvarium was not metabolically active. On 02/23/2019 she began cycle 1 of Velcade/Revlimid/dexamethasone. She also was given an infusion of Zometa for the lytic bone involvement. Her treatment was complicated by PHYSICIAN/INTERNIST toxicity and hypocalcemia. Her Velcade was put on hold. She stopped the Revlimid and dexamethasone as of 03/02/2019. At that point she was still having significant pain associated with the lytic bone involvement in the left ileum. During subsequent follow-up, the hypocalcemia improved. As of 03/09/2019 she was able to restart treatment with dose reductions in the Revlimid and dexamethasone. She had remained mildly anemic, but that appeared to be due to iron deficiency. As of her cycle 2 day 15 visit, she appeared to be doing well, and she continued to her treatment as scheduled. Subsequent to that visit, she developed severe diarrhea, and her treatment was put on hold. She continued with cycle 3 on 05/05/2019. She was given a further reduction in the Revlimid dosage to 10 mg daily on a day schedue with the Velcade and dexamethasone dosed weekly. Her treatment was put on hold at day 8 due to worsening neuropathy. She subsequently was able to continue treatment with Revlimid/dexamethasone, but the Velcade remained on hold. She then continued with cycle 4 on 06/21/2019. As of her follow-up visit on 07/19/2019 her treatment was put on hold due to multiple complaints, the most significant being increased fatigue and excessive somnolence. A subsequent restaging PET/CT showed no active sites of involvement. She continued, though, to have severe fatigue/somnolence despite adjustments in her medication regimen. She also continued to have significant musculoskeletal pain, and she had a persistent open wound in the area of the vertex of her scalp. Her repeat head MRI on 08/10/2019 showed no evidence of recurrent or progressive disease. With those findings, her treatment was transitioned to maintenance Revlimid at 5 mg daily, which she started following her visit on 08/17/2019. As of her followup visit on 11/28/2019 she appeared to be tolerating the maintenance Revlimid with acceptable toxicity, and there had been no obvious progression of the myeloma. During that time she was found to have B12 deficiency, and she had been showing some improvement with B12 replacement. However, at that point she still had mild anemia, and her transferrin saturation and ferritin levels were consistent with iron deficiency despite the fact that she had been on oral iron supplementation. She was given parenteral iron replacement with 2 infusions of Injectafer. She also was given denosumab 120 mg by ssubcutaneous injection for the lytic bone involvement. On 12/06/2019 she was admitted to the hospital with symptomatic hypocalcemia. She also had hypokalemia and hypophosphatemia. I was uncertain to what extent those abnormalities were due to the Injectafer, to the denosumab, or both. However, she continued to have persistent symptomatic hypocalemia and hypophosphatemia despite having both IV or oral replacement, and she required hospital admission again on 12/15/2019. During this time there was a significant in her performance status. She also developed shortness of breath and hypoxia. A specific cause for that was not determined. Following her hospitalization she continued outpatient IV fluid and electrolyte replacement along with oral calcium and vitamin D supplements. However, she did show gradual recovery with resolution of the hypocalcemia/hypophosphatemia and she also had gradual improvement in her performance status. Her protein electrophoresis studies in January did show evidence of progression of her myeloma with increasing free lambda light chain and her restaging PET/CT in February also showed findings suspicious for disease progression. She did not appear to be overtly symptomatic, but with evidence of disease progression, she was recommended to begin second line treatment with daratumumab/dexamethasone. Her treatment was delayed after she developed fever and other symptoms, but she eventually did start treatment with daratumumab/dexamethasone on 03/21/2020. Her repeat free light chain assay prior to that had shown further increase in the free lambda light chain to 537 mg/L with kappa/lambda ratio 0.06. She tolerated the initial daratumumab infusion with no adverse effects, and she was then able to continue treatment weekly. As of 05/09/2020 she completed the 8th infusion on the weekly schedule, and as of 05/16/2020 she began her 1st of 8 planned infusions at 2-week intervals. At that point the free light chain assay had shown a significant decrease in the free lambda light chain, to 205 mg/L. Overall, she had been showing very gradual improvement in her clinical status, though she continued to have multiple complaints. Unfortunately her repeat head MRI in May showed significant worsening of calvarial lesions, consistent with disease progression. She continued the daratumumab and dexamethasone with addition of pomalidomide beginning on 06/27/2020. She has now completed 1 cycle, but even with the pomalidomide administered at a reduced dosage, she has been having significant PHYSICIAN/INTERNIST side effects. Plan: She will stop her current treatment, as it is extremely unlikely that she will tolerate pomalidomide at a sufficient dosage to have any meaningful benefit. I will review the PET/CT, I will then consider options for further treatment. At this point I am leaning towards a trial of therapy with belantamab [id number], but that would be subject to verification of insurance coverage. Another option would just be a trial of therapy with melphalan/prednisone. In the meantime, I also will request physical therapy evaluation and treatment for dysequilibrium. Signed By: Ruiz Rodriguez M.D. <<Signature on File>>
== END 2020-07-25 09:23 | disposition home or self-care (01) ==
LOC: ONCMED 09:24
PROVIDERS: PCP Electrodiagnostic Medicine; Visit Provider Internal Medicine Medical Oncology
DX: C90.00 Multiple myeloma not having achieved remission (principal); S99.811A Other specified injuries of right ankle, initial encounter; M79.651 Pain in right thigh; M79.661 Pain in right lower leg; R10.2 Pelvic and perineal pain; W19.XXXA Unspecified fall, initial encounter; R35.0 Frequency of micturition; R39.15 Urgency of urination; M19.90 Unspecified osteoarthritis, unspecified site; M47.9 Spondylosis, unspecified; N80.9 Endometriosis, unspecified; F41.8 Other specified anxiety disorders; R42 Dizziness and giddiness; Z92.3 Personal history of irradiation; Z86.711 Personal history of pulmonary embolism; Z79.01 Long term (current) use of anticoagulants; Z79.899 Other long term (current) drug therapy
CPT/HCPCS: 72170; 73552; 73590; 73610; 81003; 87086; 99214

== ENCOUNTER 2020-07-30 09:36 | Outpatient (CLI) | payer MEDICARE, SELFPAY | END 2020-07-30 09:37 | disposition home or self-care (01) | LOC: WOUND 09:37 | PROVIDERS: PCP Electrodiagnostic Medicine; Visit Provider Emergency Medicine | DX: L59.8 Other specified disorders of the skin and subcutaneous tissue related to radiation (principal); Y84.2 Radiological procedure and radiotherapy as the cause of abnormal reaction of the patient, or of later complication, without mention of misadventure at the time of the procedure; Y79.1 Therapeutic (nonsurgical) and rehabilitative orthopedic devices associated with adverse incidents; L98.492 Non-pressure chronic ulcer of skin of other sites with fat layer exposed | CPT/HCPCS: 97597 ==

== ENCOUNTER → 2020-08-17 15:51 | Outpatient (BNVA) | payer MEDICARE, SELFPAY | PROVIDERS: PCP Electrodiagnostic Medicine; Visit Provider Emergency Medicine | DX: Z11.59 Encounter for screening for other viral diseases (principal) | CPT/HCPCS: 87635 ==

== ENCOUNTER 2020-08-27 15:31 | Outpatient (CLI) | payer MEDICARE, SELFPAY ==
[2020-08-27 16:03] LABS: Basophils # 0.1 10^3/uL (0.0-0.1); Eosinophils # 0.1 10^3/uL (0.0-0.8); Eosinophils % 0.9 %; Hematocrit 39.2 % (37.0-47.0); Hemoglobin 12.7 g/dL (11.5-15.3); Lymphocytes # 2.4 10^3/uL (0.8-4.8); Lymphocytes % 34.3 %; Mean Corpuscular HGB Conc 32.4 g/dL (30.0-36.0); Mean Corpuscular Hemoglobin 30.8 pg (28.0-34.0); Mean Corpuscular Volume 95.1 fL (81-99); Mean Platelet Volume 12.3 fL (7.4-10.4); Monocytes # 0.7 10^3/uL (0.2-0.9); Monocytes % 9.9 %; Neutrophils # 3.74 10^3/uL (1.8-7.7); Neutrophils % 53.8 %; Nucleated Red Blood Cells % 0 %; Platelet Count 215 10^3/cmm (130-400); Red Blood Count 4.12 10^6/uL (4.1-5.3); Red Cell Distribution Width 14.7 % (12.1-15.1)
[2020-08-27 16:33] LABS: Alanine Aminotransferase 12 U/L (0-33); Albumin Level 3.6 g/dL (3.5-5.2); Alkaline Phosphatase 75 IU/L (35-105); Blood Urea Nitrogen 13 mg/dL (8-23); Calcium 10.2 mg/dL (8.5-10.5); Chloride 105 mmol/L (98-107); Glucose 95 mg/dL (65-115); Immunoglobulin IGA 51 mg/dL (70-400); Immunoglobulin IGG 563 mg/dL (700-1600); Osmolality Calculated 286 mOsm/kg (285-295); Sodium 138 mmol/L (136-145); Total Bilirubin 0.2 mg/dL (0.15-1.2); Total Protein 5.6 g/dL (6.6-8.7)
[2020-08-27 16:34] LABS: Aspartate Amino Transferase 17 U/L (0-32); Potassium 3.6 mmol/L (3.5-5.1)
[2020-08-27 16:53] LABS: Anion Gap 15.6 (5-19)
[2020-08-27 16:54] LABS: Immunoglobulin IGM < 25 mg/dL (40-230)
[2020-08-27 16:56] LABS: Carbon Dioxide 21 mmol/L (22-29)
[2020-08-28 07:43] LABS: PROTEIN, TOTAL 5.5 g/dL (6.1-8.1)
[2020-08-28 14:43] LABS: ABNORMAL PROTEIN BAND 1 0.3 g/dL (NONE DETECTED); ALBUMIN 3.5 g/dL (3.8-4.8); ALPHA 1 GLOBULIN 0.2 g/dL (0.2-0.3); ALPHA 2 GLOBULIN 0.7 g/dL (0.5-0.9); BETA 1 GLOBULIN 0.4 g/dL (0.4-0.6); BETA 2 GLOBULIN 0.2 g/dL (0.2-0.5); GAMMA GLOBULIN 0.6 g/dL (0.8-1.7); KAPPA LIGHT CHAIN, FREE, SERUM 27.4 mg/L (3.3-19.4); KAPPA/LAMBDA LIGHT CHAINS FREE 0.23 (0.26-1.65); LAMBDA LIGHT CHAIN, FREE, SERU 119.6 mg/L (5.7-26.3)
== END 2020-08-27 15:32 | disposition home or self-care (01) ==
LOC: ONCMED 15:34
PROVIDERS: PCP Electrodiagnostic Medicine; Visit Provider Nurse Practitioner
DX: C90.00 Multiple myeloma not having achieved remission (principal)
CPT/HCPCS: 36415; 80053; 82784; 83883; 84155; 84165; 85025

== ENCOUNTER 2020-08-29 05:55 | Outpatient (CLI) | payer MEDICARE, SELFPAY ==
[2020-08-29] MEDS: sodium chloride 0.9% 250 ML 75 ML IV (10:55)
[2020-08-29] MEDS: acetaminophen 325 mg Tablet 650 MG PO (10:55)
--- NOTE | 2020-09-02 21:52 | ONC FU_ITS ---
[facility] Patient Note Patient: Valentin Clark Unit #: [id number]: [id number] Dictated By: Sue PatelDate of Visit: Aug 29, 2020 Onc MED Follow-Up/Prog Note Chief Complaint: Multiple myeloma. 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 In March 2018 she had bumped her head at work and in the process of that she became aware of a small lump, though it was actually in a slightly different area. She then noticed that the lump was getting larger. Evaluation with head MRI on 06/07/2018 showed evidence of a right parietal occipital extra-axial neoplasm, felt to be most likely meningeal in origin. It was noted to exert mass effect on the right parietal and occipital lobes, but without associated midline shift or white matter parenchymal edema. The lesion was noted to invade through the calvarium and into the subcutaneous parietal occipital scalp soft tissues. The mass measured 5.7 x 3.5 x 6 cm. 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 The area of occlusion was noted to extend over approximately 4.3 cm. She was seen by Dr. Landry and subsequently referred for neurosurgery evaluation at [facility]. Initially they had considered possible surgical resection. Her further evaluation there apparently included laboratory findings which were suspicious for myeloma, and it was recommended that she have treatment with radiation. She was seen here for further management on 07/14/2018. She then returned to Dr. Landry, and on 07/20/2018 she underwent open biopsy/resection of the extracranial extent of the mass. 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 Her further evaluation included protein electrophoresis which showed an IgG lambda monoclonal protein in the serum quantitating at 0.48 g/dL. The serum free light chain assay showed elevated lambda light chain at 374.65 mg/L with decreased kappa/lambda ratio at 0.06. The 24-hour urine protein electrophoresis showed no monoclonal protein. There were no other areas of lytic bone involvement noted on her skeletal survey. Bone marrow aspiration/biopsy on 07/30/2018 showed a monotypic plasma cell population, but it comprised only 2% of the total cellularity. A FISH panel for myeloma was unrevealing, and the standard chromosome analysis was normal. She was referred to Dr. Kaur, and she began radiation to the lesion on 07/30/2018. She completed treatment on 09/02/2018 to a total dose of 5,000 cGy. She had evaluation with CT pulmonary angiogram on 09/14/2018. It showed moderate bilateral pulmonary embolic burden. She began on anticoagulation with apixaban. During her subsequent follow-up she continued to have an open wound at the site of the plasmacytoma in the parietal-occipital scalp region. As of her follow-up visit on 10/19/2018 her M protein was stable 0.37 g/dL. In the absence of any evidence of symptomatic myeloma, she had otherwise just continued on observation/expectant management. However, due to her persistent scalp wound she had a repeat brain MRI on 01/11/2019. It showed evidence of residual neoplastic process at the resection site. There was associated dural involvement but with improved signal characteristics and decreased enhancement compared to the study from September 2018. She was seen for a follow-up visit on 01/20/2019. In view of the MRI findings, she had further evaluation with PET/CT on 02/03/2019. It showed increase in size and expansile hypermetabolic lesion within the left ilium with extension of hypermetabolic tumor into the adjacent left iliac muscle. There was a new hypermetabolic lytic process within the right S1/S2 region. A large lytic mass within the posterior calvarium did not appear to have active hypermetabolism. Also noted, though, was a hypermetabolic lesion within the medullary canal of the distal left femoral diametaphysis and an additional hypermetabolic focus in the anterior cortex of the distal right femur concerning for additional areas of myeloma. In the setting of obvious progression of her myeloma, she was recommended to begin a trial of therapy with Velcade/Revlimid/dexamethasone. Her other medical illnesses include hypertension and degenerative arthritis/degenerative disease of the spine. She has associated cervical and lumbar spinal stenosis. She has a history of endometriosis, and she has anxiety/depression. She is a nonsmoker. INTERIM HISTORY: She began cycle 1 of VRd on 02/23/2019. At that time she also received an infusion of IV Zometa for the lytic bone involvement. At that time, there was a slight increase in her baseline creatinine level to 1.2 mg/dL, and did opt to reduce her Revlimid dosage because of that. She experienced significant toxicity following her day 1 treatment, mainly having become listless and out of it over the next 4-5 days. She also lost her appetite. Her follow-up lab studies showed a drop in her calcium from baseline 10.3 mg/dL to 6.5 mg/dL with albumin 3.5 g/dL. With that finding, it was opted to hold her further Velcade, but she continued Revlimid and dexamethasone. As of 03/09/2019 she restarted treatment with Velcade at 1.3 mg/m??? weekly with Revlimid reduced to 15 mg daily on a 21/28 day schedule and the dexamethasone dosage reduced to 20 mg weekly. As of her day 15 visit, she was tolerating the treatment well. At that time she received the full dosage of Velcade, and she continued Revlimid 15 mg daily for 7 more days. She had subsequently developed diarrhea, and at her followup visit on 04/07/2019 her treatment was put on hold. She eventually continued with cycle 3 on 05/05/2019 with the Revlimid dosage further reduced to 10 mg daily on a 21/28 day schedule and with the Velcade and dexamethasone dosed weekly. Her repeat SPEP at that time showed residual M protein quantitating at 0.3 g/dL. The free light chain assay showed kappa light chain 100 mg/L, lambda light chain 122 mg/L, and kappa/lambda ratio 0.82. Her treatment was put on hold again at day 8 due to worsening neuropathy. She subsequently was able to continue the Revlimid and dexamethasone, but the Velcade remained on hold. Her repeat protein electrophoresis on 06/09/2019 showed stable M protein at 0.3 g/dL. The serum free light chain assay showed normal kappa/lambda ratio at 0.84. She was seen for a follow-up visit on 06/21/2019. At that point she appeared stable clinically. Her blood counts were adequate, and she continued with her 4th cycle of treatment. Her repeat protein electrophoresis on 07/13/2019 showed residual M protein quantitating at 0.2 g/dL. The free light chain assay showed elevated kappa light chain at 31.0 mg/L and elevated lambda light chain at 33.0 mg/L with normal kappa/lambda ratio at 0.94. Her 24-hour urine protein electrophoresis showed no detectable monoclonal protein. She was seen for a follow-up visit on 07/19/2019. At that point she complained of increased fatigue and excessive somnolence, and I did opt to put her treatment on hold. A subsequent restaging PET/CT showed no FDG avid sites of involvement. Her repeat head MRI on 08/10/2019 showed no evidence of recurrent or progressive disease. With those findings, I opted to transition her treatment to maintenance Revlimid at 5 mg daily, which she started following her visit on 08/17/2019. Her further laboratory studies on 09/22/2019 also showed a low B12 level at 189 pg/mL, and she subsequently started B12 replacement therapy. A sleep study in October 2019 showed moderate obstructive sleep apnea. At her follow-up visit on 11/28/2019 she was still mildly anemic, and transferrin saturation was still low at 17% despite being on oral iron replacement. As such, she was then given parenteral iron replacement with infusions of Injectafer on 11/28/2019 and on 12/05/2019. With the 11/28 visit she also was given denosumab 120 mg by subcutaneous injection for the lytic bone involvement. On 12/06/2019 she was admitted to the hospital with symptomatic hypocalcemia, serum calcium 5.9 mg/dL with albumin 2.9 g/dL. Renal function was stable with creatinine 1.0 mg/dL, but her potassium also was low at 3.2 mmol/L. She was given IV calcium and potassium replacement. She then continued further IV replacement as an outpatient. Despite that she was readmitted to the hospital with hypocalcemia on 12/15/2019. She was discharged home on 12/23/2019. Her evaluation included CT pulmonary angiogram which showed no evidence of pulmonary embolism. There was evidence of cardiomegaly, a small pericardial effusion, and small bilateral pleural effusions. Echocardiogram showed small, hemodynamically insignificant pericardial effusion and normal left ventricular function. She then returned here on 12/27/2019 and she has since then continued IV fluid and electrolyte replacement, daily for the first week and then on Mondays, Wednesdays, and Fridays. Despite that, she continued to feel weak and shaky, and she had ongoing complaints of nausea and anorexia. She continued to require IV fluid and electrolyte replacement but she did show gradual recovery. Her further treatment remained on hold. Repeat protein electrophoresis on 01/16/2020 showed stable M protein at 0.4 g/dL. The serum free light chain assay showed elevated free lambda light chain at 254 mg/L with decreased kappa/lambda ratio at 0.16. There was no monoclonal protein identified in the 24-hour urine protein electrophoresis. Restaging PET/CT on 02/24/2020 showed findings concerning for disease progression with new areas of marrow hypermetabolism within the right proximal humerus and within the bilateral distal femoral diametaphysis. The existing areas of involvement within the left ilium and sacrum showed further decrease in FDG uptake. With those findings, Dr Rodriguez had recommended that she proceed to second line treatment with daratumumab/dexamethasone. She was scheduled to come in last week for her initial infusion of daratumumab, but the treatment was deferred when she developed low-grade fever and other acute symptoms. She eventually was able to begin her initial infusion of daratumumab on 03/21/2020. Her repeat free light chain assay prior to that showed further increase in the lambda light chain to 537 mg/L with kappa/lambda ratio 0.06. She tolerated the daratumumab with no adverse effects, and she then continued treatment weekly. On 05/03/2020 she underwent EGD and colonoscopy by Dr. Jimenes. The EGD showed no significant abnormal findings, and the colonoscopy showed just 2 small polyps in the rectum. 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 As of 05/09/2020 she had completed her 8th infusion on the weekly schedule, and as of 05/16/2020 she received her 1st of 8 planned infusions at the 2-week interval. Her M protein at that point was stable at 0.4 g/dL. The free light chain assay showed a decrease in the free lambda light chain from 537.42 205.2 mg/L. However, her repeat head MRI on 06/05/2020 showed significant progression of the myelomatous lesions within the skull compared to the study from January 2020. Numerous calvarial lesions were now present, the largest in the right parietal bone measuring 2.2 cm. The postoperative resection site in the posterior right parietal lobe showed significantly more enhancement with slightly more dural enhancement, also suspicious for progression of neoplastic changes. With that finding, she had continued the daratumumab and dexamethasone, but beginning on 06/27/2020 she added pomalidomide at a reduced dosage of 2 mg daily on a -day schedule. Her repeat PET/CT on 07/12/2020 showed a large lytic lesion within the posterior right calvarium, but without associated hypermetabolism. There were no new lesions identified within the calvarium. There was persistent hypermetabolism noted within the proximal right humerus, SUV 3.6, and there was new hypermetabolism within the marrow of the proximal left humerus, SUV 3.6. There was decrease in FDG uptake within the medial left ilium. There was persistent hypermetabolism noted in the right femoral diametaphysis and in the distal left femoral diametaphysis. There was new hypermetabolism noted in the proximal left tibia. Overall the findings were concerning for disease progression. She had disease progression and poor tolerance of the pomalidomide. She has been approved for treatment with Blenrep ([facility]). Mrs. Clark is here today for follow-up. She is due to start Blenrep. She states overall she feels pretty good. She is been walking her dog twice a day which is on that she has not done in forever . She is doing some housework. She states she does tire and asleep in about 12 hours a day but is able to get things done to. She states overall she feels good. She is due for eye exam again in 2 weeks. She states she sees Dr. Jimenes on the and will ask him about ordering an MRI of her brain again as the last one has been since June. She states she received her flu vaccine on August 15 at [facility] pharmacy. She has no specific complaints today. She is doing well in general. She denies any new pain. She said no fever or chills. She has had no known Covid exposure recently. She was exposed to her [id number] initially several weeks ago but had no symptoms arise. She states her pain in the hip has been about the same. She states maybe it is some better with walking. She states she thinks the scalp wound may be getting a little deeper. It is not having any more drainage or discomfort at this time. She states Dr. Jimenes has generally been looking at it and she will have him look at it on the . It was dressed and packed today. She denies any appetite changes. She denies any neuropathy. Her ECOG is 0. Past Medical History: Anxiety/depression Cervical stenosis Degenerative arthritis Degenerative disease of the spine Depression Endometriosis Hypertension Lumbar stenosis Past Surgical History: Bilateral cataract excisions Cholecystectomy/gastric stapling Removal of ovarian cyst x 2 Tonsillectomy Left subclavian venous access device???[facility]. [facility] [place] Allergies: BusPIRone HCl, Codeine and Related, Levaquin, and Morphine Derivatives. Medications: Acetaminophen 2 Tablet (of 500 mg) Oral PRN Bisacodyl 1 Tablet (of 5 mg) Tablet, enteric coated Oral daily Calcitriol 2 Capsule (of .25 mcg) Oral daily calicum 600 Tabminder (of 600 mg) Tablet Oral b.i.d. Cyclobenzaprine HCl 1 Tablet (of 5 mg) Oral PRN Dexamethasone (4 mg) Tablet Oral Take as Directed Eliquis 1 Tablet (of 2.5 mg) Oral b.i.d. FLUoxetine HCl 1 Tablet (of 10 mg) Oral daily FLUoxetine HCl 1 Capsule (of 20 mg) Oral daily Furosemide 1 - 2 Tablet (of 40 mg) Oral daily PRN GoodSense Stimulant Laxative 2 Tablet (of 8.6-50 mg) Oral t.i.d. PRN HYDROcodone-Acetaminophen 1 - 2 Tablet (of 5-325 mg) Oral q 4 hours PRN Lansoprazole 1 Capsule (of 30 mg) Capsule Delayed Release Oral daily Loperamide A-D 1 Tablet (of 2 mg) Oral PRN Loratadine 1 Tablet (of 10 mg) Oral daily PRN LORazepam 1 Tablet (of 0.5 mg) Oral at bedtime Metoprolol Tartrate 0.5 Tablet (of 25 mg) Oral b.i.d. Ondansetron HCl 1 - 2 Tablet (of 4 mg) Oral PRN Pantoprazole Sodium 1 Tablet (of 40 mg) Tablet, enteric coated Oral b.i.d. Pomalyst 1 Capsule (of 2 mg) Oral daily for 21 days Potassium Chloride ER 1 Tablet (of 20 meq) Tablet, controlled release Oral daily Probiotic Acidophilus 1 Capsule Tablet Oral b.i.d. Ventolin HFA Aerosol, solution Inhalation Vitamin D3 2 Capsule (of 2000 Units) Oral daily Family History: Ms. Clark's mother at age 84: emphysema, and congestive heart failure. Ms. Clark's father at age 53: heart disease, and myocardial infarction. Ms. Clark has 2 brothers: 1 alive, 1 . Ms. Clark's first brother's colon cancer, and type ii diabetes. Another brother's colon cancer. She has 2 sisters: 2 alive. Ms. Clark's first sister's herat disease, and type ii diabetes. Father of heart attack age 51. Mother with emphysema at age 78. She also had heart disease and diabetes. A sister has diabetes and heart disease. A brother has diabetes and he has been treated for colon cancer. A maternal uncle also had colon cancer, and a maternal aunt had breast cancer. 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 Ms. Clark has never smoked. She drinks occasionally. She is a nonsmoker. She has had just rare alcohol use. Review Of Symptoms: Constitutional Denies fevers, chills, night sweats. Allergic/Immunologic No reactions. Eyes Denies significant visual changes. No diplopia. No amaurosis. ENMT Denies changes in hearing, sore throat, mouth sores, difficulty or changes in swallowing ability, and/or sinus drainage. Endocrine No diabetes, thyroid disease or hormone replacement. Denies hot flashes or night sweats. Hematologic/Lymphatic Denies easy bruising or bleeding. The patient denies any tender or palpable lymph nodes. Respiratory Denies any new dyspnea on exertion, chest pain, cough or hemoptysis. Denies orthopnea. Cardiovascular Denies anginal chest pain, palpitations or orthopnea. Gastrointestinal Denies nausea, vomiting, GI bleeding, or constipation. Genitourinary (F) No hematuria, hesitancy, incontinence, vaginal bleeding, discharge or other problems with urination. Musculoskeletal Denies joint pain, swelling or redness. No decreased range of motion. Integumentary Denies chronic rashes, inflammation, ulcerations or skin changes. Neurologic Denies headache, blurred vision, and no areas of focal weakness or numbness. Normal gait. No sensory problems. Psychiatric Denies insomnia, depression, olivia or mood swings. Vital Signs: Performed on Aug 29, 2020 12:30 Height - 63.50 in Temperature - 97.9 F (LOW) Pulse - 77 /min Respiration - 18 /min BP - 104/65 mm(hg) O2 Sat - 98 % Pain - 0 Fatigue - 0 Performed on Aug 29, 2020 10:03 Height - 63.50 in Weight - 193.4 lbs (LOW) BSA - 1.92 sq.m BMI - 33.72 (HIGH) Temperature - 97.3 F (LOW) Pulse - 65 /min Respiration - 17 /min BP - 124/75 mm(hg) O2 Sat - 98 %,0 - Fully active, able to carry on all predisease activities without restrictions. (ECOG) Physical Examination: Constitutional Alert, oriented, no acute distress. Skin pink, warm and dry. Head Normocephalic; atraumatic. Posterior scalp wound is healing well without exudate or redness. It remains open-covered with dressing. Eyes Conjunctivae and sclerae are clear and without icterus. Pupils are reactive and equal. Neck Supple without masses or thyromegaly. No jugular venous distension. Hematologic/Lymphatic No petechiae or purpura. No tender or palpable lymph nodes in the cervical or supraclavicular areas. Respiratory Lungs are clear to auscultation without rhonchi or wheezing. Cardiovascular Regular rate and rhythm of heart without murmurs,clicks, gallops or rubs. Chest left sided port-unremarkable. Abdomen Non-tender, non-distended, no masses, ascites. .Good bowel sounds noted in all quads. No guarding or rebound tenderness. No pulsatile masses. Back/Spine Non-tender to palpation. Extremities No visible deformities, no cyanosis, clubbing or edema. Musculoskeletal No tenderness or swelling. Integumentary No rashes or lesions. Neurologic No sensory or motor deficits, normal cerebellar function, normal-slow gait. Psychiatric Alert and oriented times three. Coherent speech. Verbalizes understanding of our discussions today. Laboratory:[See flow sheet and below for labs from 08/27/2020. Impression: 1. 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 She underwent resection/open biopsy of the extracranial portion of the mass on 07/20/2018. 2. She then underwent radiation, completed on 09/02/2018 to a total dose of 5000 cGy. 3. She has persistent open wound at the biopsy site. 4. She had associated IgG lambda monoclonal protein in the serum and 2% monoclonal plasma cells in the bone marrow, consistent with underlying myeloma. Initially it appeared to otherwise not be symptomatic. 5. She was found to have pulmonary emboli by CT pulmonary angiogram on 09/14/2018. She began anticoagulation with apixaban. Her other medical illnesses include: 6. Degenerative arthritis and degenerative disease of the spine with associated cervical and lumbar spinal stenosis. 7. Hypertension. 8. Endometriosis. 9. Anxiety/depression. During subsequent followup she had increasing pain in the left hip/buttock area. Her repeat protein electrophoresis studies showed only a slight increase in her M protein, but her repeat PET/CT on 02/03/2019 showed significant progression of lytic bone involvement in the left ilium. There was also possible involvement in the distal right femur. The area of lytic involvement in the calvarium was not metabolically active. On 02/23/2019 she began cycle 1 of Velcade/Revlimid/dexamethasone. She also was given an infusion of Zometa for the lytic bone involvement. Her treatment was complicated by DOUGH BRAKER toxicity and hypocalcemia. Her Velcade was put on hold. She stopped the Revlimid and dexamethasone as of 03/02/2019. At that point she was still having significant pain associated with the lytic bone involvement in the left ileum. During subsequent follow-up, the hypocalcemia improved. As of 03/09/2019 she was able to restart treatment with dose reductions in the Revlimid and dexamethasone. She had remained mildly anemic, but that appeared to be due to iron deficiency. As of her cycle 2 day 15 visit, she appeared to be doing well, and she continued to her treatment as scheduled. Subsequent to that visit, she developed severe diarrhea, and her treatment was put on hold. She continued with cycle 3 on 05/05/2019. She was given a further reduction in the Revlimid dosage to 10 mg daily on a 21 day schedule with the Velcade and dexamethasone dosed weekly. Her treatment was put on hold at day 8 due to worsening neuropathy. She subsequently was able to continue treatment with Revlimid/dexamethasone, but the Velcade remained on hold. She then continued with cycle 4 on 06/21/2019. As of her follow-up visit on 07/19/2019 her treatment was put on hold due to multiple complaints, the most significant being increased fatigue and excessive somnolence. A subsequent restaging PET/CT showed no active sites of involvement. She continued, though, to have severe fatigue/somnolence despite adjustments in her medication regimen. She also continued to have significant musculoskeletal pain, and she had a persistent open wound in the area of the vertex of her scalp. Her repeat head MRI on 08/10/2019 showed no evidence of recurrent or progressive disease. With those findings, her treatment was transitioned to maintenance Revlimid at 5 mg daily, which she started following her visit on 08/17/2019. As of her followup visit on 11/28/2019 she appeared to be tolerating the maintenance Revlimid with acceptable toxicity, and there had been no obvious progression of the myeloma. During that time she was found to have B12 deficiency, and she had been showing some improvement with B12 replacement. However, at that point she still had mild anemia, and her transferrin saturation and ferritin levels were consistent with iron deficiency despite the fact that she had been on oral iron supplementation. She was given parenteral iron replacement with 2 infusions of Injectafer. She also was given denosumab 120 mg by subcutaneous injection for the lytic bone involvement. On 12/06/2019 she was admitted to the hospital with symptomatic hypocalcemia. She also had hypokalemia and hyperphosphatemia. It was uncertain to what extent those abnormalities were due to the Injectafer, to the denosumab, or both. However, she continued to have persistent symptomatic hypocalcemia and hyperphosphatemia despite having both IV or oral replacement, and she required hospital admission again on 12/15/2019. During this time there was a significant in her performance status. She also developed shortness of breath and hypoxia. A specific cause for that was not determined. Following her hospitalization she continued outpatient IV fluid and electrolyte replacement along with oral calcium and vitamin D supplements. However, she did show gradual recovery with resolution of the hypocalcemia/hyperphosphatemia and she also had gradual improvement in her performance status. Her protein electrophoresis studies in January did show evidence of progression of her myeloma with increasing free lambda light chain and her restaging PET/CT in February also showed findings suspicious for disease progression. She did not appear to be overtly symptomatic, but with evidence of disease progression, she was recommended to begin second line treatment with daratumumab/dexamethasone. Her treatment was delayed after she developed fever and other symptoms, but she eventually did start treatment with daratumumab/dexamethasone on 03/21/2020. Her repeat free light chain assay prior to that had shown further increase in the free lambda light chain to 537 mg/L with kappa/lambda ratio 0.06. She tolerated the initial daratumumab infusion with no adverse effects, and she was then able to continue treatment weekly. As of 05/09/2020 she completed the 8th infusion on the weekly schedule, and as of 05/16/2020 she began her 1st of 8 planned infusions at 2-week intervals. At that point the free light chain assay had shown a significant decrease in the free lambda light chain, to 205 mg/L. Overall, she had been showing very gradual improvement in her clinical status, though she continued to have multiple complaints. Unfortunately her repeat head MRI in May showed significant worsening of calvarial lesions, consistent with disease progression. She continued the daratumumab and dexamethasone with addition of pomalidomide beginning on 06/27/2020. She has now completed 1 cycle, but even with the pomalidomide administered at a reduced dosage, she has been having significant D[employer] side effects. She was advised to stop the pomalidomide, as it is extremely unlikely that she will tolerate it at a sufficient dosage to have any meaningful benefit. Dr Rodriguez has recommended a trial of therapy with belantamab [id number] of insurance coverage has been obtained. Another option would just be a trial of therapy with melphalan/prednisone. Ms Clark is here today to begin the Blenrep (belantamab [id number]). Plan: 1. Proceed with Blenrep (belantamab mafodotin-blmf) 2. She received premedications with Tylenol Benadryl and ondansetron. 3. She has had baseline eye exam and will follow up again in 2 weeks. This drug cause changes in the corneal epithelium resulting in changes in vision, including severe vision loss and corneal ulcer and possible blurred vision and dry eyes. She is to have a eye exam prior to each dose. 4. Other adverse reactions discussed included but not limited to: thrombocytopenia, infusion related reactions (21% with severe infusion related reaction at 3%), diarrhea, nausea, decreased appetite, constipation. Abnormal labs to include's serum albumin decreased potassium decreased serum sodium and increased gamma glutamyltransferase and increased serum glucose. Decreased hemoglobin, decreased neutrophils lymphocytopenia and thrombocytopenia???as above have been reported. Increased serum alk phos and increased serum aspirate aminotransferase. Fatigue was less than 20%. Vision changes as above. Decreased visual acuity was reported at 53%. Increased serum creatinine was it 28%. Arthralgia at 12%. Fever was noted in 6 to 22% of patients undergoing study. 5. She will return in 1 week for CBC CMP. She also have interim labs in 2 weeks. 6. She is due for follow-up in 3 weeks with CBC CMP and she will need her myeloma labs at that time. She will be due for treatment as well. 7. Labs from 08/27/2020 were reviewed in detail and discussed with Ms. Clark and a copy was given to her. WBC 7.0, hemoglobin 12.7, platelets are 15,000 ANC is 3740. Creatinine 1.0 random glucose 95 LFTs are normal. Her abnormal protein is reported at 0.3 with faint restricted band (M spike) migrating in the gamma region. The kappa free light chain was reported at 27.4 and the lambda free light chain is 119.6. 8. Ms. Clark was encouraged to let us know in the interim if questions or problems arise. 9. [facility] Signed By: Sue Patel-, [facility] Ruiz Rodriguez MD <<Signature on File>>
== END 2020-08-29 05:56 | disposition home or self-care (01) ==
LOC: ONCMED 05:57
PROVIDERS: PCP Electrodiagnostic Medicine; Visit Provider Nurse Practitioner
DX: C90.00 Multiple myeloma not having achieved remission (principal); Z92.3 Personal history of irradiation; Z79.899 Other long term (current) drug therapy; Z86.711 Personal history of pulmonary embolism; Z79.01 Long term (current) use of anticoagulants; I10 Essential (primary) hypertension; N80.9 Endometriosis, unspecified; F41.8 Other specified anxiety disorders
CPT/HCPCS: 96367; 96413; 99214; J1200; J2405; J7050; J9999

== ENCOUNTER 2020-09-03 09:53 | Outpatient (CLI) | payer MEDICARE, SELFPAY | END 2020-09-03 09:54 | disposition home or self-care (01) | LOC: WOUND 09:54 | PROVIDERS: PCP Electrodiagnostic Medicine; Visit Provider Nurse Practitioner Family | DX: L98.492 Non-pressure chronic ulcer of skin of other sites with fat layer exposed (principal) | CPT/HCPCS: 11042 ==

== ENCOUNTER 2020-09-05 06:31 | Outpatient (CLI) | payer MEDICARE, SELFPAY ==
[2020-09-05 14:02] LABS: Basophils # 0.1 10^3/uL (0.0-0.1); Basophils % 1.2 %; Eosinophils # 0.1 10^3/uL (0.0-0.8); Eosinophils % 0.7 %; Hematocrit 38.1 % (37.0-47.0); Lymphocytes # 2.6 10^3/uL (0.8-4.8); Lymphocytes % 38.3 %; Mean Corpuscular HGB Conc 31.5 g/dL (30.0-36.0); Mean Corpuscular Hemoglobin 29.6 pg (28.0-34.0); Mean Corpuscular Volume 94.1 fL (81-99); Mean Platelet Volume 12.5 fL (7.4-10.4); Monocytes % 14.2 %; Neutrophils # 3.13 10^3/uL (1.8-7.7); Neutrophils % 45.5 %; Nucleated Red Blood Cells % 0 %; Platelet Count 153 10^3/cmm (130-400); Red Blood Count 4.05 10^6/uL (4.1-5.3); Red Cell Distribution Width 14.2 % (12.1-15.1); White Blood Count 6.9 10^3/uL (4.0-10.0)
[2020-09-05 14:33] LABS: Alanine Aminotransferase 9 U/L (0-33); Albumin Level 3.4 g/dL (3.5-5.2); Alkaline Phosphatase 98 IU/L (35-105); Anion Gap 13.9 (5-19); Aspartate Amino Transferase 21 U/L (0-32); Blood Urea Nitrogen 10 mg/dL (8-23); Calcium 9.8 mg/dL (8.5-10.5); Carbon Dioxide 25 mmol/L (22-29); Chloride 101 mmol/L (98-107); Globulin 2.3 g/dL (1.3-4.6); Glomerular Filtration Rate 62.1 mL/min (90-130); Glucose 92 mg/dL (65-115); Osmolality Calculated 281 mOsm/kg (285-295); Potassium 3.9 mmol/L (3.5-5.1); Sodium 136 mmol/L (136-145); Total Bilirubin 0.3 mg/dL (0.15-1.2); Total Protein 5.7 g/dL (6.6-8.7)
== END 2020-09-05 06:32 | disposition home or self-care (01) ==
LOC: ONCMED 06:32
PROVIDERS: PCP Electrodiagnostic Medicine; Visit Provider Nurse Practitioner
DX: C90.30 Solitary plasmacytoma not having achieved remission (principal); C79.51 Secondary malignant neoplasm of bone; D47.2 Monoclonal gammopathy; D50.9 Iron deficiency anemia, unspecified; E83.51 Hypocalcemia
CPT/HCPCS: 36415; 80053; 85025

== ENCOUNTER 2020-09-10 10:35 | Outpatient (CLI) | payer MEDICARE, SELFPAY ==
--- NOTE | 2020-09-10 11:02 | MR_ITS ---
WS: [id number] MRI HEAD WITH CONTRAST TECHNIQUE: Sagittal T1, T2 axial, T2 axial FLAIR, axial susceptibility weighted imaging, axial diffus ion weighted images, and coronal T2 images were obtained. Pre and post-T1 axial and post T1 coronal i mages. ADC and FSPGR images. CLINICAL INFORMATION: MALIGNANT NEOPLASM OF THE BRAIN COMPARISON: MRI 06/05/2020 and 02/01/2020 CT July 21, 2020 FINDINGS: Prior postoperative changes right parietal craniectomy with postoperative enhancement invol ving the underlying resection cavity. No evidence of increasing edema or mass effect. No evidence of progressed parenchymal disease. Again seen are multiple enhancing calvarial lesions bilaterally simil ar to the prior examination. Largest in the right parietal calvarium measuring 2.0 cm unchanged. No evidence of restricted diffusion to suggest acute ischemia. Ventricular system and basal cisterns are patent. Moderate small vessel changes with moderate parenchymal volume loss. Small vessel changes in the ritu. 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 Chronic la cunar infarcts in the cerebellum. Normal vascular flow voids at the skull base. No extra-axial fluid collections. Mild mucosal thickening in the mastoid air cells. Paranasal sinuses are well aerated. MR/MR head wo/w con [id number] IMPRESSION: 1. Prior postoperative changes right parietal occipital craniectomy with soft tissue defect. 2. No evidence of recurrent or progressed intraparenchymal disease. Stable enh ancement about the resection cavity similar in appearance. 3. No abnormal intracranial parenchymal enhancement. 4. Multiple stable enhancing myelomatous lesions in the calvarium bilaterally largest in the right parietal calvarium measuring 2.0 cm. 5. 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 6. Moderate small vessel changes with moderate parenchymal volume loss.
== END 2020-09-10 10:36 | disposition home or self-care (01) ==
LOC: RADWPI 10:38
PROVIDERS: PCP Electrodiagnostic Medicine; Visit Provider Electrodiagnostic Medicine
DX: C71.9 Malignant neoplasm of brain, unspecified (principal); I63.9 Cerebral infarction, unspecified
CPT/HCPCS: 70553; A9579

== ENCOUNTER 2020-09-12 06:17 | Outpatient (CLI) | payer MEDICARE, SELFPAY ==
[2020-09-12 13:52] LABS: Basophils # 0.1 10^3/uL (0.0-0.1); Eosinophils % 0.6 %; Hematocrit 38.1 % (37.0-47.0); Hemoglobin 11.9 g/dL (11.5-15.3); Lymphocytes # 2.3 10^3/uL (0.8-4.8); Lymphocytes % 32.1 %; Mean Corpuscular HGB Conc 31.2 g/dL (30.0-36.0); Mean Platelet Volume 13.6 fL (7.4-10.4); Monocytes # 0.7 10^3/uL (0.2-0.9); Monocytes % 9.5 %; Neutrophils # 3.98 10^3/uL (1.8-7.7); Neutrophils % 56.5 %; Nucleated Red Blood Cells % 0 %; Platelet Count 157 10^3/cmm (130-400); Red Blood Count 3.97 10^6/uL (4.1-5.3); Red Cell Distribution Width 14.2 % (12.1-15.1)
[2020-09-12 14:12] LABS: Alanine Aminotransferase 12 U/L (0-33); Albumin Level 3.4 g/dL (3.5-5.2); Alkaline Phosphatase 89 IU/L (35-105); Anion Gap 10.2 (5-19); Aspartate Amino Transferase 23 U/L (0-32); Blood Urea Nitrogen 11 mg/dL (8-23); Calcium 9.8 mg/dL (8.5-10.5); Carbon Dioxide 27 mmol/L (22-29); Chloride 107 mmol/L (98-107); Globulin 2.1 g/dL (1.3-4.6); Glucose 83 mg/dL (65-115); Osmolality Calculated 289 mOsm/kg (285-295); Potassium 4.2 mmol/L (3.5-5.1); Sodium 140 mmol/L (136-145); Total Bilirubin 0.2 mg/dL (0.15-1.2); Total Protein 5.5 g/dL (6.6-8.7)
[2020-09-12] MEDS: sodium chloride 0.9% 1,000 mL Bolus 999 ML IV (14:20)
[2020-09-12 15:13] LABS: Slide Review Slide Review Perform
== END 2020-09-12 06:18 | disposition home or self-care (01) ==
LOC: ONCMED 06:20
PROVIDERS: PCP Electrodiagnostic Medicine; Visit Provider Nurse Practitioner
DX: C90.00 Multiple myeloma not having achieved remission (principal); Z51.81 Encounter for therapeutic drug level monitoring; Z79.899 Other long term (current) drug therapy
CPT/HCPCS: 80053; 85025; 96360; J7030

== ENCOUNTER 2020-09-17 06:36 | Outpatient (CLI) | payer MEDICARE, SELFPAY ==
[2020-09-17 11:14] LABS: Basophils # 0.1 10^3/uL (0.0-0.1); Basophils % 1.6 %; Eosinophils # 0.1 10^3/uL (0.0-0.8); Eosinophils % 0.9 %; Hematocrit 38.8 % (37.0-47.0); Hemoglobin 12.2 g/dL (11.5-15.3); Lymphocytes # 1.8 10^3/uL (0.8-4.8); Lymphocytes % 31.6 %; Mean Corpuscular HGB Conc 31.4 g/dL (30.0-36.0); Mean Corpuscular Hemoglobin 29.5 pg (28.0-34.0); Mean Corpuscular Volume 93.9 fL (81-99); Mean Platelet Volume 11.9 fL (7.4-10.4); Monocytes # 0.6 10^3/uL (0.2-0.9); Monocytes % 10.7 %; Neutrophils # 3.14 10^3/uL (1.8-7.7); Nucleated Red Blood Cells % 0 %; Platelet Count 264 10^3/cmm (130-400); Red Blood Count 4.13 10^6/uL (4.1-5.3); White Blood Count 5.7 10^3/uL (4.0-10.0)
[2020-09-17 11:44] LABS: Alanine Aminotransferase 15 U/L (0-33); Albumin Level 3.5 g/dL (3.5-5.2); Alkaline Phosphatase 97 IU/L (35-105); Anion Gap 10.8 (5-19); Aspartate Amino Transferase 23 U/L (0-32); Blood Urea Nitrogen 9 mg/dL (8-23); Calcium 10.2 mg/dL (8.5-10.5); Carbon Dioxide 29 mmol/L (22-29); Chloride 102 mmol/L (98-107); Globulin 2.2 g/dL (1.3-4.6); Glomerular Filtration Rate 62.1 mL/min (90-130); Glucose 97 mg/dL (65-115); Immunoglobulin IGG 553 mg/dL (700-1600); Osmolality Calculated 285 mOsm/kg (285-295); Potassium 3.8 mmol/L (3.5-5.1); Sodium 138 mmol/L (136-145); Total Bilirubin 0.3 mg/dL (0.15-1.2); Total Protein 5.7 g/dL (6.6-8.7)
[2020-09-17 13:01] LABS: Immunoglobulin IGA 44 mg/dL (70-400); Immunoglobulin IGM 19 mg/dL (40-230)
[2020-09-18 12:18] LABS: PROTEIN, TOTAL 5.3 g/dL (6.1-8.1)
[2020-09-18 15:08] LABS: KAPPA LIGHT CHAIN, FREE, SERUM 21.2 mg/L (3.3-19.4); KAPPA/LAMBDA LIGHT CHAINS FREE 0.25 (0.26-1.65); LAMBDA LIGHT CHAIN, FREE, SERU 83.6 mg/L (5.7-26.3)
[2020-09-18 15:39] LABS: ABNORMAL PROTEIN BAND 1 0.3 g/dL (NONE DETECTED); ALBUMIN 3.1 g/dL (3.8-4.8); ALPHA 1 GLOBULIN 0.3 g/dL (0.2-0.3); ALPHA 2 GLOBULIN 0.8 g/dL (0.5-0.9); BETA 1 GLOBULIN 0.4 g/dL (0.4-0.6); BETA 2 GLOBULIN 0.2 g/dL (0.2-0.5); GAMMA GLOBULIN 0.5 g/dL (0.8-1.7)
== END 2020-09-17 06:37 | disposition home or self-care (01) ==
LOC: ONCMED 06:37
PROVIDERS: Internal Medicine Medical Oncology; PCP Electrodiagnostic Medicine; Visit Provider Nurse Practitioner
DX: C90.30 Solitary plasmacytoma not having achieved remission (principal); C79.51 Secondary malignant neoplasm of bone; D47.2 Monoclonal gammopathy; D50.9 Iron deficiency anemia, unspecified; E83.51 Hypocalcemia; Z45.2 Encounter for adjustment and management of vascular access device
CPT/HCPCS: 36415; 80053; 82784; 83883; 84155; 84165; 85025; 96523

== ENCOUNTER 2020-09-19 06:03 | Outpatient (CLI) | payer MEDICARE, SELFPAY ==
[2020-09-19] MEDS: sodium chloride 0.9% 250 ML 75 ML IV (16:44)
--- NOTE | 2020-09-22 14:22 | ONC FU_ITS ---
Dr. Rodriguez Patient Follow-Up Note Patient: Valentin Clark Unit #: [id number]: 1950 Dicatated By: Ruiz Rodriguez M.D.Date of Visit:Sep 19, 2020 Onc Med Follow-up/Prog Note Chief Complaint: Mulitple myeloma. 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 In March 2018 she had bumped her head at work and in the process of that she became aware of a small lump, though it was actually in a slightly different area. She then noticed that the lump was getting larger. Evaluation with head MRI on 06/07/2018 showed evidence of a right parietal occipital extra-axial neoplasm, felt to be most likely meningeal in origin. It was noted to exert mass effect on the right parietal and occipital lobes, but without associated midline shift or white matter parenchymal edema. The lesion was noted to invade through the calvarium and into the subcutaneous parietal occipital scalp soft tissues. The mass measured 5.7 x 3.5 x 6 cm. 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 The area of occlusion was noted to extend over approximately 4.3 cm. She was seen by Dr. Landry and subsequently referred for neurosurgery evaluation at [facility]. Initially they had considered possible surgical resection. Her further evaluation there apparently included laboratory findings which were suspicious for myeloma, and it was recommended that she have treatment with radiation. She was seen here for further management on 07/14/2018. She then returned to Dr. Landry, and on 07/20/2018 she underwent open biopsy/resection of the extracranial extent of the mass. 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 Her further evaluation included protein electrophoresis which showed an IgG lambda monoclonal protein in the serum quantitating at 0.48 g/dL. The serum free light chain assay showed elevated lambda light chain at 374.65 mg/L with decreased kappa/lambda ratio at 0.06. The 24-hour urine protein electrophoresis showed no monoclonal protein. There were no other areas of lytic bone involvement noted on her skeletal survey. Bone marrow aspiration/biopsy on 07/30/2018 showed a monotypic plasma cell population, but it comprised only 2% of the total cellularity. A FISH panel for myeloma was unrevealing, and the standard chromosome analysis was normal. She was referred to Dr. Kaur, and she began radiation to the lesion on 07/30/2018. She completed treatment on 09/02/2018 to a total dose of 5,000 cGy. She had evaluation with CT pulmonary angiogram on 09/14/2018. It showed moderate bilateral pulmonary embolic burden. She began on anticoagulation with apixaban. During her subsequent follow-up she continued to have an open wound at the site of the plasmacytoma in the parietal-occipital scalp region. As of her follow-up visit on 10/19/2018 her M protein was stable 0.37 g/dL. In the absence of any evidence of symptomatic myeloma, she had otherwise just continued on observation/expectant management. However, due to her persistent scalp wound she had a repeat brain MRI on 01/11/2019. It showed evidence of residual neoplastic process at the resection site. There was associated dural involvement but with improved signal characteristics and decreased enhancement compared to the study from September 2018. She was seen for a follow-up visit on 01/20/2019. In view of the MRI findings, she had further evaluation with PET/CT on 02/03/2019. It showed increase in size and expansile hypermetabolic lesion within the left ilium with extension of hypermetabolic tumor into the adjacent left iliac muscle. There was a new hypermetabolic lytic process within the right S1/S2 region. A large lytic mass within the posterior calvarium did not appear to have active hypermetabolism. Also noted, though, was a hypermetabolic lesion within the medullary canal of the distal left femoral diametaphysis and an additional hypermetabolic focus in the anterior cortex of the distal right femur concerning for additional areas of myeloma. In the setting of obvious progression of her myeloma, she was recommended to begin a trial of therapy with Velcade/Revlimid/dexamethasone. Her other medical illnesses include hypertension and degenerative arthritis/degenerative disease of the spine. She has associated cervical and lumbar spinal stenosis. She has a history of endometriosis, and she has anxiety/depression. She is a nonsmoker. INTERIM HISTORY: She began cycle 1 of VRd on 02/23/2019. At that time she also received an infusion of IV Zometa for the lytic bone involvement. At that time, there was a slight increase in her baseline creatinine level to 1.2 mg/dL, and did opt to reduce her Revlimid dosage because of that. She experienced significant toxicity following her day 1 treatment, mainly having become listless and out of it over the next 4-5 days. She also lost her appetite. Her follow-up lab studies showed a drop in her calcium from baseline 10.3 mg/dL to 6.5 mg/dL with albumin 3.5 g/dL. With that finding, I did opt to hold her further Velcade, but she continued Revlimid and dexamethasone. As of 03/09/2019 she restarted treatment with Velcade at 1.3 mg/m??? weekly with Revlimid reduced to 15 mg daily on a 21/28 day schedule and the dexamethasone dosage reduced to 20 mg weekly. As of her day 15 visit, she was tolerating the treatment well. At that time she received the full dosage of Velcade, and she continued Revlimid 15 mg daily for 7 more days. She had subsequently developed diarrhea, and at her followup visit on 04/07/2019 her treatment was put on hold. She eventually continued with cycle 3 on 05/05/2019 with the Revlimid dosage further reduced to 10 mg daily on a 21/28 day schedule and with the Velcade and dexamethasone dosed weekly. Her repeat SPEP at that time showed residual M protein quantitating at 0.3 g/dL. The free light chain assay showed kappa light chain 100 mg/L, lambda light chain 122 mg/L, and kappa/lambda ratio 0.82. Her treatment was put on hold again at day 8 due to worsening neuropathy. She subsequently was able to continue the Revlimid and dexamethasone, but the Velcade remained on hold. Her repeat protein electrophoresis on 06/09/2019 showed stable M protein at 0.3 g/dL. The serum free light chain assay showed normal kappa/lambda ratio at 0.84. She was seen for a follow-up visit on 06/21/2019. At that point she appeared stable clinically. Her blood counts were adequate, and she continued with her 4th cycle of treatment. Her repeat protein electrophoresis on 07/13/2019 showed residual M protein quantitating at 0.2 g/dL. The free light chain assay showed elevated kappa light chain at 31.0 mg/L and elevated lambda light chain at 33.0 mg/L with normal kappa/lambda ratio at 0.94. Her 24-hour urine protein electrophoresis showed no detectable monoclonal protein. She was seen for a follow-up visit on 07/19/2019. At that point she complained of increased fatigue and excessive somnolence, and I did opt to put her treatment on hold. A subsequent restaging PET/CT showed no FDG avid sites of involvement. Her repeat head MRI on 08/10/2019 showed no evidence of recurrent or progressive disease. With those findings, I opted to transition her treatment to maintenance Revlimid at 5 mg daily, which she started following her visit on 08/17/2019. Her further laboratory studies on 09/22/2019 also showed a low B12 level at 189 pg/mL, and she subsequently started B12 replacement therapy. A sleep study in October 2019 showed moderate obstructive sleep apnea. At her follow-up visit on 11/28/2019 she was still mildly anemic, and transferrin saturation was still low at 17% despite being on oral iron replacement. As such, she was then given parenteral iron replacement with infusions of Injectafer on 11/28/2019 and on 12/05/2019. With the 11/28 visit she also was given denosumab 120 mg by subcutaneous injection for the lytic bone involvement. On 12/06/2019 she was admitted to the hospital with symptomatic hypocalcemia, serum calcium 5.9 mg/dL with albumin 2.9 g/dL. Renal function was stable with creatinine 1.0 mg/dL, but her potassium also was low at 3.2 mmol/L. She was given IV calcium and potassium replacement. She then continued further IV replacement as an outpatient. Despite that she was readmitted to the hospital with hypocalcemia on 12/15/2019. She was discharged home on 12/23/2019. Her evaluation included CT pulmonary angiogram which showed no evidence of pulmonary embolism. There was evidence of cardiomegaly, a small pericardial effusion, and small bilateral pleural effusions. Echocardiogram showed small, hemodynamically insignificant pericardial effusion and normal left ventricular function. She then returned here on 12/27/2019 and she has since then continued IV fluid and electrolyte replacement, daily for the first week and then on Mondays, Wednesdays, and Fridays. Despite that, she continued to feel weak and shaky, and she had ongoing complaints of nausea and anorexia. She continued to require IV fluid and electrolyte replacement but she did show gradual recovery. Her further treatment remained on hold. Repeat protein electrophoresis on 01/16/2020 showed stable M protein at 0.4 g/dL. The serum free light chain assay showed elevated free lambda light chain at 254 mg/L with decreased kappa/lambda ratio at 0.16. There was no monoclonal protein identified in the 24-hour urine protein electrophoresis. Restaging PET/CT on 02/24/2020 showed findings concerning for disease progression with new areas of marrow hypermetabolism within the right proximal humerus and within the bilateral distal femoral diametaphysis. The existing areas of involvement within the left ilium and sacrum showed further decrease in FDG uptake. With those findings, I had recommended that she proceed to second line treatment with daratumumab/dexamethasone. She was scheduled to come in last week for her initial infusion of daratumumab, but the treatment was deferred when she developed low-grade fever and other acute symptoms. She eventually was able to begin her initial infusion of daratumumab on 03/21/2020. Her repeat free light chain assay prior to that showed further increase in the lambda light chain to 537 mg/L with kappa/lambda ratio 0.06. She tolerated the daratumumab with no adverse effects, and she then continued treatment weekly. On 05/03/2020 she underwent EGD and colonoscopy by Dr. Jimenes. The EGD showed no significant abnormal findings, and the colonoscopy showed just 2 small polyps in the rectum. 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 As of 05/09/2020 she had completed her 8th infusion on the weekly schedule, and as of 05/16/2020 she received her 1st of 8 planned infusions at the 2-week interval. Her M protein at that point was stable at 0.4 g/dL. The free light chain assay showed a decrease in the free lambda light chain from 537.42 205.2 mg/L. However, her repeat head MRI on 06/05/2020 showed significant progression of the myelomatous lesions within the skull compared to the study from January 2020. Numerous calvarial lesions were now present, the largest in the right parietal bone measuring 2.2 cm. The postoperative resection site in the posterior right parietal lobe showed significantly more enhancement with slightly more dural enhancement, also suspicious for progression of neoplastic changes. With that finding, she had continued the daratumumab and dexamethasone, but beginning on 06/27/2020 she added pomalidomide at a reduced dosage of 2 mg daily on a -day schedule. Her repeat PET/CT on 07/12/2020 showed a large lytic lesion within the posterior right calvarium, but without associated hypermetabolism. There were no new lesions identified within the calvarium. There was persistent hypermetabolism noted within the proximal right humerus, SUV 3.6, and there was new hypermetabolism within the marrow of the proximal left humerus, SUV 3.6. There was decrease in FDG uptake within the medial left ilium. There was persistent hypermetabolism noted in the right femoral diametaphysis and in the distal left femoral diametaphysis. There was new hypermetabolism noted in the proximal left tibia. Overall the findings were concerning for disease progression. On 08/29/2020 she began a trial of salvage therapy with belantamab [id number]. She tolerated the initial infusion without acute toxicity. She is seen for a follow-up visit. She says she was feeling really good after her initial infusion of belantamab mafodotin. However, last she then began having pain in the left sciatic area, severe enough that it significantly restricted her activity. She has now started having similar pain on the right side. Her energy had been good, but her ECOG score now is 2. She continues to have poor appetite. She has not had fever or night sweats. She has had some chills. Thus far she has not had any ocular symptoms with the treatment. She says she has had a sore on the inside of her lip and she has had a scratchy throat. She recently has had some heaviness in her chest and wheezing, and she also has had chest congestion and cough productive of yellow sputum. She does not complain of chest pain. She has not been having nausea. Her acid reflux is not as bad now. She has constipation, but she says that is under control. She continues to have some urinary frequency with urgency and incontinence. She also has pain in her right shoulder down to her right elbow and some pain in her left elbow. She has headache in the frontal area. She has no focal neurologic symptoms. Medications: Acetaminophen 2 Tablet (of 500 mg) Oral PRN, Bisacodyl 1 Tablet (of 5 mg) Tablet, enteric coated Oral daily, Calcitriol 2 Capsule (of .25 mcg) Oral daily, calicum 600 Tabminder (of 600 mg) Tablet Oral b.i.d., Cyclobenzaprine HCl 1 Tablet (of 5 mg) Oral PRN, Dexamethasone (4 mg) Tablet Oral Take as Directed, Eliquis 1 Tablet (of 2.5 mg) Oral b.i.d., FLUoxetine HCl 1 Tablet (of 10 mg) Oral daily, FLUoxetine HCl 1 Capsule (of 20 mg) Oral daily, Furosemide 1 - 2 Tablet (of 40 mg) Oral daily PRN, GoodSense Stimulant Laxative 2 Tablet (of 8.6-50 mg) Oral t.i.d. PRN, HYDROcodone-Acetaminophen 1 - 2 Tablet (of 5-325 mg) Oral q 4 hours PRN, Lansoprazole 1 Capsule (of 30 mg) Capsule Delayed Release Oral daily, Loperamide A-D 1 Tablet (of 2 mg) Oral PRN, Loratadine 1 Tablet (of 10 mg) Oral daily PRN, LORazepam 1 Tablet (of 0.5 mg) Oral at bedtime, Metoprolol Tartrate 0.5 Tablet (of 25 mg) Oral b.i.d., Ondansetron HCl 1 - 2 Tablet (of 4 mg) Oral PRN, Pantoprazole Sodium 1 Tablet (of 40 mg) Tablet, enteric coated Oral b.i.d., Pomalyst 1 Capsule (of 2 mg) Oral daily for 21 days, Potassium Chloride ER 1 Tablet (of 20 meq) Tablet, controlled release Oral daily, Probiotic Acidophilus 1 Capsule Tablet Oral b.i.d., traMADol HCl 1 Tablet (of 50 mg) Oral t.i.d. PRN, Ventolin HFA Aerosol, solution Inhalation, Vitamin D3 2 Capsule (of 2000 Units) Oral daily Allergies: BusPIRone HCl, Codeine and Related, Levaquin, and Morphine Derivatives. Review of Systems: Constitutional - Her energy was good, but it has declined with recent development of sciatic pain. Appetite is unchanged, not good. Her weight is stable. She has not had fever or night sweats. She has had some chills. ECOG score is 2, ENMT - No sinus congestion/drainage. She had a sore on the inside of her lip. Her throat has been scratchy. No difficulty swallowing, Hematologic/Lymphatic - She has bruising off and on, Respiratory - She had heaviness in her chest last week and she recently has had cough, chest congestion, and some wheezing. No pleuritic pain or hemoptysis, Cardiovascular - No angina pain. No palpitations, Gastrointestinal - No nausea or vomiting. Her acid reflux has not been as bad lately. She has constipation, but it is under control. No blood in the stool or black stools, Genitourinary (F) - No dysuria or hematuria. No urinary frequency. She has urgency/incontinence, Musculoskeletal - Last week she developed pain in the left sciatic area and it has now started on the right side. She also has pain in her right shoulder rating down the right arm to the elbow, and she has pain in her left elbow, Integumentary - No skin rash, Neurologic - She has had some headache in the frontal area. No dizziness. No numbness or tingling. No other focal neurologic symptoms, Psychiatric - Her anxiety/depression is adequately managed. No insomnia. Vital Signs: Performed on Sep 19, 2020 09:53 Height - 63.50 in Weight - 194.6 lbs (HIGH) BSA - 1.92 sq.m BMI - 33.93 (HIGH) Temperature - 97.5 F (LOW) Pulse - 81 /min Respiration - 24 /min BP - 145/71 mm(hg) (HIGH) O2 Sat - 96 % Pain - 6 Physical Examination: Constitutional - She looks pretty good generally, Eyes - Sclerae nonicteric. Conjunctivae clear, ENMT - No lesions noted in the oral cavity, Hematologic/Lymphatic - No cervical, clavicular, or axillary adenopathy, Respiratory - Lungs sound clear, Cardiovascular - Heart rhythm is regular. There is a II/ systolic murmur. There is no gallop or rub noted, Abdomen - Soft. Liver and spleen are not enlarged. There is no abdominal mass or ascites noted and there is no inguinal adenopathy, Extremities - No edema, Integumentary - Open wound in the vertex area of her scalp, Neurologic - No focal neurologic deficits noted. Lab/Imaging: CBC shows hemoglobin 12.2 g, white blood cell count 5700, and platelet count 264,000. Comprehensive metabolic profile is unremarkable. Impression: 1. 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 She underwent resection/open biopsy of the extracranial portion of the mass on 07/20/2018. 2. She then underwent radiation, completed on 09/02/2018 to a total dose of 5000 cGy. 3. She has persistent open wound at the biopsy site. 4. She had associated IgG lambda monoclonal protein in the serum and 2% monoclonal plasma cells in the bone marrow, consistent with underlying myeloma. Initially it appeared to otherwise not be symptomatic. 5. She was found to have pulmonary emboli by CT pulmonary angiogram on 09/14/2018. She began anticoagulation with apixaban. Her other medical illnesses include: 6. Degenerative arthritis and degenerative disease of the spine with associated cervical and lumbar spinal stenosis. 7. Hypertension. 8. Endometriosis. 9. Anxiety/depression. During subsequent followup she had increasing pain in the left hip/buttock area. Her repeat protein electrophoresis studies showed only a slight increase in her M protein, but her repeat PET/CT on 02/03/2019 showed significant progression of lytic bone involvement in the left ilium. There was also possible involvement in the distal right femur. The area of lytic involvement in the calvarium was not metabolically active. On 02/23/2019 she began cycle 1 of Velcade/Revlimid/dexamethasone. She also was given an infusion of Zometa for the lytic bone involvement. Her treatment was complicated by [employer] toxicity and hypocalcemia. Her Velcade was put on hold. She stopped the Revlimid and dexamethasone as of 03/02/2019. At that point she was still having significant pain associated with the lytic bone involvement in the left ileum. During subsequent follow-up, the hypocalcemia improved. As of 03/09/2019 she was able to restart treatment with dose reductions in the Revlimid and dexamethasone. She had remained mildly anemic, but that appeared to be due to iron deficiency. As of her cycle 2 day 15 visit, she appeared to be doing well, and she continued to her treatment as scheduled. Subsequent to that visit, she developed severe diarrhea, and her treatment was put on hold. She continued with cycle 3 on 05/05/2019. She was given a further reduction in the Revlimid dosage to 10 mg daily on a day schedue with the Velcade and dexamethasone dosed weekly. Her treatment was put on hold at day 8 due to worsening neuropathy. She subsequently was able to continue treatment with Revlimid/dexamethasone, but the Velcade remained on hold. She then continued with cycle 4 on 06/21/2019. As of her follow-up visit on 07/19/2019 her treatment was put on hold due to multiple complaints, the most significant being increased fatigue and excessive somnolence. A subsequent restaging PET/CT showed no active sites of involvement. She continued, though, to have severe fatigue/somnolence despite adjustments in her medication regimen. She also continued to have significant musculoskeletal pain, and she had a persistent open wound in the area of the vertex of her scalp. Her repeat head MRI on 08/10/2019 showed no evidence of recurrent or progressive disease. With those findings, her treatment was transitioned to maintenance Revlimid at 5 mg daily, which she started following her visit on 08/17/2019. As of her followup visit on 11/28/2019 she appeared to be tolerating the maintenance Revlimid with acceptable toxicity, and there had been no obvious progression of the myeloma. During that time she was found to have B12 deficiency, and she had been showing some improvement with B12 replacement. However, at that point she still had mild anemia, and her transferrin saturation and ferritin levels were consistent with iron deficiency despite the fact that she had been on oral iron supplementation. She was given parenteral iron replacement with 2 infusions of Injectafer. She also was given denosumab 120 mg by ssubcutaneous injection for the lytic bone involvement. On 12/06/2019 she was admitted to the hospital with symptomatic hypocalcemia. She also had hypokalemia and hypophosphatemia. I was uncertain to what extent those abnormalities were due to the Injectafer, to the denosumab, or both. However, she continued to have persistent symptomatic hypocalemia and hypophosphatemia despite having both IV or oral replacement, and she required hospital admission again on 12/15/2019. During this time there was a significant in her performance status. She also developed shortness of breath and hypoxia. A specific cause for that was not determined. Following her hospitalization she continued outpatient IV fluid and electrolyte replacement along with oral calcium and vitamin D supplements. However, she did show gradual recovery with resolution of the hypocalcemia/hypophosphatemia and she also had gradual improvement in her performance status. Her protein electrophoresis studies in January did show evidence of progression of her myeloma with increasing free lambda light chain and her restaging PET/CT in February also showed findings suspicious for disease progression. She did not appear to be overtly symptomatic, but with evidence of disease progression, she was recommended to begin second line treatment with daratumumab/dexamethasone. Her treatment was delayed after she developed fever and other symptoms, but she eventually did start treatment with daratumumab/dexamethasone on 03/21/2020. Her repeat free light chain assay prior to that had shown further increase in the free lambda light chain to 537 mg/L with kappa/lambda ratio 0.06. She tolerated the initial daratumumab infusion with no adverse effects, and she was then able to continue treatment weekly. As of 05/09/2020 she completed the 8th infusion on the weekly schedule, and as of 05/16/2020 she began her 1st of 8 planned infusions at 2-week intervals. At that point the free light chain assay had shown a significant decrease in the free lambda light chain, to 205 mg/L. Overall, she had been showing very gradual improvement in her clinical status, though she continued to have multiple complaints. Unfortunately her repeat head MRI in May showed significant worsening of calvarial lesions, consistent with disease progression. She continued the daratumumab and dexamethasone with addition of pomalidomide beginning on 06/27/2020. 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 Her repeat PET/CT on 07/12/2020 showed a large lytic lesion within the posterior right calvarium, but without associated hypermetabolism. There were no new lesions identified within the calvarium. There was persistent hypermetabolism noted within the proximal right humerus, SUV 3.6, and there was new hypermetabolism within the marrow of the proximal left humerus, SUV 3.6. There was decrease in FDG uptake within the medial left ilium. There was persistent hypermetabolism noted in the right femoral diametaphysis and in the distal left femoral diametaphysis. There was new hypermetabolism noted in the proximal left tibia. Overall the findings were concerning for disease progression. On 08/29/2020 she began a trial of salvage therapy with belantamab mafodotin-blmf. She tolerated the initial infusion without acute toxicity, and initially she felt good generally. However, over the past week she has developed significant pain in the left sciatic distribution and now with similar pain on the right side. In addition, she has recently developed symptoms of respiratory tract infection. Plan: She will proceed with cycle 2 of belantamab mafodotin-blmf. The dosage remains the same. She will be given antibiotic coverage with Ceftin 500 mg twice daily for 5 days. She is going to see Dr. Jimenes in regard to the sciatic pain, which seems unlikely to be associated with her myeloma. She returns here in 3 weeks. Signed By: Ruiz Rodriguez M.D. <<Signature on File>>
== END 2020-09-19 06:04 | disposition home or self-care (01) ==
LOC: ONCMED 06:04
PROVIDERS: PCP Electrodiagnostic Medicine; Visit Provider Internal Medicine Medical Oncology
DX: Z51.12 Encounter for antineoplastic immunotherapy (principal); C90.00 Multiple myeloma not having achieved remission; M54.32 Sciatica, left side; M54.31 Sciatica, right side; M48.061 Spinal stenosis, lumbar region without neurogenic claudication; M48.02 Spinal stenosis, cervical region; I10 Essential (primary) hypertension; N80.9 Endometriosis, unspecified; F41.8 Other specified anxiety disorders; Z79.899 Other long term (current) drug therapy; Z86.711 Personal history of pulmonary embolism; Z79.01 Long term (current) use of anticoagulants; Z92.3 Personal history of irradiation
CPT/HCPCS: 96367; 96413; 99214; J1200; J2405; J7050; J9999

== ENCOUNTER → 2020-09-23 16:07 | Outpatient (BNVA) | payer MEDICARE, SELFPAY | PROVIDERS: PCP Electrodiagnostic Medicine; Visit Provider Emergency Medicine | DX: Z20.828 Contact with and (suspected) exposure to other viral communicable diseases (principal) | CPT/HCPCS: 86710; 87400; 87635 ==

== ENCOUNTER 2020-10-05 11:12 | Emergency (ER) | payer MEDICARE, SELFPAY ==
[2020-10-05 11:25] VITALS: BP 135/77; PULSE 86; RESP 20; O2SAT 95; BMI 32.9
--- NOTE | 2020-10-05 11:35 | XR_ITS ---
WS: [id number] Exam: XR chest 1V portable [id number] Date/Time of Exam: 10/05/2020 11:54 AM Reason For Exam: dyspnea Comparison 03/03/2019. There is groundglass infiltrate in the right lower lung zone suggesting pneumonia. The left lung is c lear. No pneumothorax or pleural effusion. Normal cardiomediastinal structures. Left subclavian port ends in the midportion of the SVC. Old right clavicle fracture. Multiple surgical clips in the upper abdomen. XR/XR chest 1V portable [id number] IMPRESSION: 1. Groundglass infiltrate in the right lower lung zone suspicious for pneumonia .
--- NOTE | 2020-10-05 11:42 | CT_ITS ---
WS: [id number] CT CHEST ANGIOGRAPHY WITH REFORMATS HISTORY: dyspnea TECHNIQUE: Contiguous axial images are obtained through the chest during arterial injection of intrav enous contrast. Images are reconstructed to evaluate the pulmonary arteries. MIP imaging also reviewe d. All CT scans at [facility] use at least one of these dose optimization techniques: aut omated exposure control; mA and/or kV adjustment per patient size (includes targeted exams where dose is matched to clinical indication); or iterative reconstruction. CONTRAST: Omnipaque 350; 95 mL IV. DLP: 544.53 mGy.cm COMPARISON: 07/21/2020 and 12/15/2019 Excellent opacification of the pulmonary arteries. No pulmonary embolism. Pulmonary artery size is eq ual to the aorta. Mild atherosclerosis aorta. Mild enlargement of the LEFT heart chambers. No pericar dial or pleural effusion. Patchy RIGHT middle and RIGHT lower lobe peripheral opacifications. Very bolton btle groundglass attenuation in the periphery LEFT lower lobe. No pleural effusion. Mildly prominent lymphoid tissue at the RIGHT hilum. No adenopathy. Prior cholecystectomy. Additional surgical clips causing artifact in the LEFT upper abdomen. Supra um bilical abdominal wall hernia. There is a small loop of transverse colon extending into the hernia wi th no obstruction. Increase in the thoracic kyphosis. Mild anterior wedging of several of the midthoracic vertebral bodi es. CT/CT angio chest PE protcl [id number] IMPRESSION: 1. No pulmonary embolism. 2. Patchy peripheral and basilar opacifications, greatest in the RIGHT middle and RIGHT lower lobes. Distribution of airspace disease can be seen with Covid 19.
[2020-10-05 12:12] VITALS: O2SAT 96
[2020-10-05 12:17] LABS: Basophils # 0.1 10^3/uL (0.0-0.1); Eosinophils % 0.1 %; Hematocrit 42.5 % (37.0-47.0); Hemoglobin 13.3 g/dL (11.5-15.3); Lymphocytes # 1.6 10^3/uL (0.8-4.8); Lymphocytes % 17.7 %; Mean Corpuscular HGB Conc 31.3 g/dL (30.0-36.0); Mean Corpuscular Hemoglobin 28.7 pg (28.0-34.0); Mean Corpuscular Volume 91.8 fL (81-99); Mean Platelet Volume 13.2 fL (7.4-10.4); Monocytes # 0.9 10^3/uL (0.2-0.9); Monocytes % 10.1 %; Neutrophils # 6.23 10^3/uL (1.8-7.7); Neutrophils % 70.9 %; Nucleated Red Blood Cells % 0 %; Platelet Count 197 10^3/cmm (130-400); Red Blood Count 4.63 10^6/uL (4.1-5.3); Red Cell Distribution Width 13.7 % (12.1-15.1); White Blood Count 8.8 10^3/uL (4.0-10.0)
--- NOTE | 2020-10-05 12:32 | W.ED.COVID ---
HPI - COVID General: Chief Complaint: COVID symptoms Stated Complaint: SOB Time Seen by Provider: 10/05/20 11:32 Triage information: Has fever, cough or shortness of breath. Exposure to COVID + person last 14 days History of Present Illness: HPI Narrative: 70-year-old female comes in complaining of difficulty breathing and shortness of breath. She tested positive for Covid on 09/23/2020. She felt like she been doing well but then began having what felt like more difficulty breathing over the last 3 days low-grade fever as well. She denies any vomiting initially as she had some diarrhea but that has decreased she not had any dysuria urgency or frequency she has had a cough but that is been nonproductive. MD complaint: known COVID positive Prior covid testing: yes, results known Prior testing date: 09/23/20 COVID 19 common symptoms: positive fever(s), cough, non-productive cough, dyspnea, fatigue and body aches; negative throat pain, nasal congestion, nausea, vomiting or diarrhea COVID 19 other sytmptoms: negative chest pain or requiring oxygen Onset (ago): day(s) (11) Severity: moderate Pertinent comorbid conditions: hypertension Treatment prior to arrival: none COVID Results: SARS-CoV-2 RNA (RT-PCR) Detected (NOT DETECTED) A 09/23/20 16:07 09/23/20 Review of Systems Const: Reports: fever(s), body aches and fatigue ENMT: Denies: throat pain, ear or mastoid pain, nasal discharge or nasal congestion Card: Denies: chest pain, edema, dyspnea on exertion or orthopnea Resp: Reports: dyspnea and non-productive cough GI: Denies: abdominal pain, nausea, vomiting, hematemesis, coffee ground emesis, diarrhea, constipation, bloating, hematochezia or melena : Denies: flank pain, difficulty voiding, dysuria, urinary frequency or urinary urgency Skin/Breast: Denies: rash or pruritus PFSH ED PFSH: Medical History (Updated 10/05/20 @ 14:24 by Garrison Linares DO) COVID-19 Depression FHx: cholecystectomy Gastroesophageal reflux H/O intracranial mass (~07/20/18) Open biopsy/resection of mass, Dr Landry 07/20/18 Hypertension MRSA (methicillin resistant staph aureus) culture positive Multiple myeloma -has hx of IgG lambda myeloma -has had radiation treatment -f/u with Dr. 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 Landry -has had persistent open wound at area of biopsy; wound care daily Pulmonary embolism -has hx of bilateral PE -continue AC with Eliquis Surgical History H/O cataract removal with insertion of prosthetic lens History of appendectomy Hx of tonsillectomy Status post craniectomy Family History Mother CAD (coronary artery disease) Diabetes Sister CAD (coronary artery disease) Diabetes Brother Cancer Diabetes Social History Smoking and tobacco status: never smoked Alcohol intake: never Housing: House Marital status: Single History of recent travel: No Physical Exam Const: COMMON NORMALS: no acute distress GENERAL APPEARANCE: cooperative and comfortable ORIENTATION/CONSCIOUSNESS: Yes awake, Yes oriented to person, Yes oriented to place and Yes oriented to time HENMT: COMMON NORMALS: normocephalic, atraumatic and hearing grossly normal bilaterally HEAD & SCALP: normocephalic and atraumatic Neck/C-Spine: COMMON NORMALS: no JVD Resp: COMMON NORMALS: normal respiratory effort, No retractions, No use of accessory muscles and clear to auscultation bilaterally AUSCULTATION: clear to auscultation bilaterally Cardio: COMMON NORMALS: no JVD, regular rate, regular rhythm and No murmurs present (Cardio) RATE: regular rate RHYTHM: regular rhythm GI: COMMON NORMALS: Soft to palpation and No hepatosplenomegaly present AUSCULTATION: Yes normoactive bowel sounds PALPATION: Yes Soft to palpation, No Tenderness to palpation present (GI), No Guarding due to palpation present (GI) and Yes No hepatosplenomegaly present Extremity: COMMON NORMALS: normal to inspection, capillary refill normal, no clubbing, cyanosis or edema, no calf tenderness and no pedal edema Neuro: SENSORIUM/ORIENTATION: Yes oriented to person, Yes oriented to place and Yes oriented to time Skin: COMMON NORMALS: no rashes or lesions noted GENERAL SKIN EXAM: no rashes or lesions noted Course Vital Signs: Vital signs: Vital Signs Pulse Rate 86 10/05/20 14:50 Respiratory Rate 20 H 10/05/20 14:50 Blood Pressure 128/85 10/05/20 14:50 Pulse Oximetry 94 10/05/20 14:50 MDM - COVID MDM Narrative: Medical decision making narrative: Discharge home with oxygen sat monitor as well as supplemental oxygen follow-up with primary care doctor in 2 days in the office return to the ER if is worsening problems also started on dexamethasone use albuterol as needed Lab Data: Labs: Lab Results 10/05/20 10/05/20 10/05/20 Range/Units 12:05 12:05 12:05 WBC 8.8 (4.0-10.0) 10^3/ uL RBC 4.63 (4.1-5.3) 10^6/u L Hgb 13.3 (11.5-15.3) g/dL Hct 42.5 (37.0-47.0) % MCV 91.8 (81-99) fL MCH 28.7 (28.0-34.0) pg MCHC 31.3 (30.0-36.0) g/dL RDW 13.7 (12.1-15.1) % Plt Count 197 (130-400) 10^3/c mm MPV 13.2 H (7.4-10.4) fL Neut % (Auto) 70.9 % Lymph % (Auto) 17.7 % Merrick % (Auto) 10.1 % Eos % (Auto) 0.1 % Baso % (Auto) 1.0 % Neut # (Auto) 6.23 (1.8-7.7) 10^3/u L Lymph # (Auto) 1.6 (0.8-4.8) 10^3/u L Merrick # (Auto) 0.9 (0.2-0.9) 10^3/u L Eos # (Auto) 0.0 (0.0-0.8) 10^3/u L Baso # (Auto) 0.1 (0.0-0.1) 10^3/u L Nucleated RBC % (a uto) 0 % Nucleated RBCs # 0.0 /100WBC Fibrinogen 667 H (174-498) mg/dL D-Dimer 1.91 H (0-0.59) ug/mIFE U Sodium 131 L (136-145) mmol/L Potassium 4.5 (3.5-5.1) mmol/L Chloride 97 L (98-107) mmol/L Carbon Dioxide 22 (22-29) mmol/L Anion Gap 16.5 (5-19) BUN 6 L (8-23) mg/dL Creatinine 0.8 (0.5-0.9) mg/dL GFR Calculation 71.1 L (90-130) mL/min Glucose 76 (65-115) mg/dL Calculated Osmolal ity 268 L (285-295) mOsm/k g Lactic Acid (0.5-2.2) mmol/L Calcium 9.9 (8.5-10.5) mg/dL Ferritin 843 H (15-150) ng/mL Total Bilirubin 0.2 (0.15-1.2) mg/dL AST 27 (0-32) U/L ALT 10 (0-33) U/L Alkaline Phosphata se 84 (35-105) IU/L Lactate Dehydrogen ase 281 H (135-214) U/L C-Reactive Protein 40.7 H (0.0-4.9) mg/L Total Protein 6.4 L (6.6-8.7) g/dL Albumin 3.4 L (3.5-5.2) g/dL Globulin 3.0 (1.3-4.6) g/dL Procalcitonin 0.06 (0-0.5) ng/mL 11/20/20 Range/Units 12:05 WBC (4.0-10.0) 10^3/ uL RBC (4.1-5.3) 10^6/u L Hgb (11.5-15.3) g/dL Hct (37.0-47.0) % MCV (81-99) fL MCH (28.0-34.0) pg MCHC (30.0-36.0) g/dL RDW (12.1-15.1) % Plt Count (130-400) 10^3/c mm MPV (7.4-10.4) fL Neut % (Auto) % Lymph % (Auto) % Merrick % (Auto) % Eos % (Auto) % Baso % (Auto) % Neut # (Auto) (1.8-7.7) 10^3/u L Lymph # (Auto) (0.8-4.8) 10^3/u L Merrick # (Auto) (0.2-0.9) 10^3/u L Eos # (Auto) (0.0-0.8) 10^3/u L Baso # (Auto) (0.0-0.1) 10^3/u L Nucleated RBC % (a uto) % Nucleated RBCs # /100WBC Fibrinogen (174-498) mg/dL D-Dimer (0-0.59) ug/mIFE U Sodium (136-145) mmol/L Potassium (3.5-5.1) mmol/L Chloride (98-107) mmol/L Carbon Dioxide (22-29) mmol/L Anion Gap (5-19) BUN (8-23) mg/dL Creatinine (0.5-0.9) mg/dL GFR Calculation (90-130) mL/min Glucose (65-115) mg/dL Calculated Osmolal ity (285-295) mOsm/k g Lactic Acid 1.7 (0.5-2.2) mmol/L Calcium (8.5-10.5) mg/dL Ferritin (15-150) ng/mL Total Bilirubin (0.15-1.2) mg/dL AST (0-32) U/L ALT (0-33) U/L Alkaline Phosphata se (35-105) IU/L Lactate Dehydrogen ase (135-214) U/L C-Reactive Protein (0.0-4.9) mg/L Total Protein (6.6-8.7) g/dL Albumin (3.5-5.2) g/dL Globulin (1.3-4.6) g/dL Procalcitonin (0-0.5) ng/mL COVID Results: SARS-CoV-2 RNA (RT-PCR) Detected (NOT DETECTED) A 09/23/20 16:07 09/23/20 Discharge Plan Discharge Patient Disposition: Home Clinical Impression: COVID-19 Condition: Stable Prescriptions: New dexamethasone 6 mg tablet 6 mg PO DAILY Qty: 7 RF: 0 albuterol sulfate 90 mcg/actuation HFA aerosol inhaler 2 inh INHALATION Q4H PRN (Reason: shortness of breath or wheezing) Qty: 18 RF: 0 No Action acetaminophen 500 mg tablet 500 mg PO Q6H PRN (Reason: Pain) RF: 0 sennosides [Evac-U-Gen (sennosides)] 8.6 mg tablet 8.6 mg PO BID PRN (Reason: Constipation) RF: 0 bisacodyl 5 mg tablet 5 mg PO DAILY PRN (Reason: Constipation) RF: 0 calcium carbonate [Calcium 600] 600 mg calcium (1,500 mg) tablet 600 mg PO DAILY RF: 0 cholecalciferol (vitamin D3) 50 mcg (2,000 unit) capsule 50 mcg PO DAILY RF: 0 Adult Probiotic 3 billion cell capsule 3,000 mmu cells PO DAILY RF: 0 metoprolol succinate 25 mg tablet extended release 24 hr 12.5 mg PO DAILY Qty: 45 RF: 3 lorazepam 0.5 mg Tablet 0.5 mg PO DAILY PRN (Reason: Anxiety) RF: 0 albuterol sulfate [Ventolin HFA] 90 mcg/actuation HFA aerosol inhaler 1 puff INHALATION Q4H PRN (Reason: Shortness Of Breath) RF: 0 furosemide 40 mg tablet 40 mg PO EVERY OTHER DAY PRN (Reason: edema) RF: 0 fluoxetine 10 mg Tablet 10 mg PO DAILY RF: 0 hydrocodone-acetaminophen See Rx Instructions .ROUTE .COMPLEX RF: 0 fluoxetine 20 mg Tablet 20 mg PO DAILY RF: 0 tramadol 50 mg Tablet 50 mg PO Q6H PRN (Reason: Pain) RF: 0 ondansetron 4 mg Tablet,Disintegrating 4 mg PO Q6H PRN (Reason: Nausea) RF: 0 cyclobenzaprine 5 mg Tablet 5 mg PO TID PRN (Reason: Anxiety) RF: 0 Eliquis 2.5 mg Tablet 2.5 mg PO BID RF: 0 potassium chloride 10 mEq capsule, extended release 10 meq PO DAILY RF: 0 calcitriol 0.25 mcg capsule 0.5 mcg PO DAILY RF: 0 Discharge Orders: Discharge Order (Routine); Ordered 10/05/20 Ordered By: Garrison Linares Other Ambulatory Orders: DME: Oxygen (Order) Location: None Selected Ordered By: Garrison Linares Referrals: Luis Manuel Jimenes, [Primary Care Provider] - Discharge Diet: Usual diet Discharge Activity: Limit activity as instructed Activity Restrictions/Additional Instructions: Limit activity to simple 8 activities of daily living no exertional activities. 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
[2020-10-05 12:38] LABS: D Dimer 1.91 ug/mIFEU (0-0.59)
[2020-10-05 12:40] LABS: Fibrinogen 667 mg/dL (174-498)
[2020-10-05 12:41] LABS: Lactic Sepsis W/Reflex 1.7 mmol/L (0.5-2.2)
[2020-10-05 12:51] LABS: Procalcitonin 0.06 ng/mL (0-0.5)
[2020-10-05 13:02] LABS: Albumin Level 3.4 g/dL (3.5-5.2); Alkaline Phosphatase 84 IU/L (35-105); Blood Urea Nitrogen 6 mg/dL (8-23); C Reactive Protein 40.7 mg/L (0.0-4.9); Calcium 9.9 mg/dL (8.5-10.5); Carbon Dioxide 22 mmol/L (22-29); Chloride 97 mmol/L (98-107); Ferritin 843 ng/mL (15-150); Glomerular Filtration Rate 71.1 mL/min (90-130); Glucose 76 mg/dL (65-115); Osmolality Calculated 268 mOsm/kg (285-295); Sodium 131 mmol/L (136-145); Total Bilirubin 0.2 mg/dL (0.15-1.2); Total Protein 6.4 g/dL (6.6-8.7)
[2020-10-05 13:07] LABS: Anion Gap 16.5 (5-19); Potassium 4.5 mmol/L (3.5-5.1)
[2020-10-05 13:08] LABS: Alanine Aminotransferase 10 U/L (0-33); Aspartate Amino Transferase 27 U/L (0-32); Lactate Dehydrogenase 281 U/L (135-214)
[2020-10-05] MEDS: iohexol 350 mg/mL 100 mL Btl IV (13:16)
[2020-10-05 14:30] VITALS: O2SAT 96
[2020-10-05 14:50] VITALS: BP 128/85; PULSE 86; RESP 20; O2SAT 94
--- NOTE | 2020-10-05 16:06 | DCPLANNER ---
student financial aid manager was asked to arrange for home oxygen for patient. student financial aid manager faxed patients face sheet, prescription, and Home 2 evaluation to [employer] student financial aid manager asked patient which company that she would like to use for her Home O2, patient stated [employer] pillowcase folder filled out Patient Choice letter due to patient being COVID positive. Company did receive order for oxygen, will bring patients oxygen to the patient in the ED.
--- NOTE | 2020-10-05 17:00 | ECG_ITS ---
[facility] Test Date: 2020-10-05 Pat Name: Valentin Clark Department: Room: Gender: Female [place]: : 1950 Requested By: Garrison Faustin Order Number: [id number] Kath MD: Kelsi Mccurdy M.D. Measurements Intervals [place] Rate: 79 P: 33 TN: 143 QRS: -23 QRSD: 93 T: 14 QT: 364 QTc: 419 Interpretive Statements SINUS RHYTHM POSSIBLE LEFT ATRIAL ENLARGEMENT [-0.1mV P WAVE IN V1/V2] BORDERLINE LEFT AXIS DEVIATION [QRS AXIS < -20] Compared to ECG 12/17/2019 16:46:40 Atrial fibrillation no longer present Electronically Signed On 10-05-2020 20:15:19 WIG MAKER by Kelsi Mccurdy M.D. [email or web address]
== END 2020-10-05 16:50 | disposition home or self-care (01) ==
PROVIDERS: Emergency Provider Family Medicine; PCP Electrodiagnostic Medicine
DX: U07.1 COVID-19 (principal); Z79.01 Long term (current) use of anticoagulants; I10 Essential (primary) hypertension
CPT/HCPCS: 12345; 71045; 71275; 80053; 82728; 83605; 83615; 84145; 85025; 85378; 85384; 86140; 93005; 99282; 99283; Q9967

== ENCOUNTER 2020-10-16 05:59 | Outpatient (CLI) | payer MEDICARE, SELFPAY ==
[2020-10-16 10:37] LABS: Basophils % 0.2 %; Hematocrit 38.3 % (37.0-47.0); Hemoglobin 12.4 g/dL (11.5-15.3); Lymphocytes # 1.5 10^3/uL (0.8-4.8); Lymphocytes % 16.8 %; Mean Corpuscular HGB Conc 32.4 g/dL (30.0-36.0); Mean Corpuscular Hemoglobin 28.5 pg (28.0-34.0); Mean Platelet Volume 11.8 fL (7.4-10.4); Monocytes # 0.6 10^3/uL (0.2-0.9); Monocytes % 6.8 %; Neutrophils # 6.84 10^3/uL (1.8-7.7); Nucleated Red Blood Cells % 0 %; Platelet Count 296 10^3/cmm (130-400); Red Blood Count 4.35 10^6/uL (4.1-5.3); Red Cell Distribution Width 13.9 % (12.1-15.1)
[2020-10-16] MEDS: alteplase 1 mg/mL SDV 2 mL 2 MG INTRACATH (10:44)
[2020-10-16 11:03] LABS: Alanine Aminotransferase 16 U/L (0-33); Albumin Level 3.6 g/dL (3.5-5.2); Alkaline Phosphatase 84 IU/L (35-105); Aspartate Amino Transferase 19 U/L (0-32); Blood Urea Nitrogen 9 mg/dL (8-23); Calcium 9.9 mg/dL (8.5-10.5); Carbon Dioxide 26 mmol/L (22-29); Chloride 105 mmol/L (98-107); Globulin 2.3 g/dL (1.3-4.6); Glomerular Filtration Rate 71.1 mL/min (90-130); Glucose 127 mg/dL (65-115); Osmolality Calculated 290 mOsm/kg (285-295); Sodium 140 mmol/L (136-145); Total Bilirubin 0.2 mg/dL (0.15-1.2); Total Protein 5.9 g/dL (6.6-8.7)
== END 2020-10-16 06:00 | disposition home or self-care (01) ==
PROVIDERS: PCP Electrodiagnostic Medicine; Visit Provider Internal Medicine Medical Oncology
DX: C90.00 Multiple myeloma not having achieved remission (principal); E83.51 Hypocalcemia; C79.51 Secondary malignant neoplasm of bone; D50.8 Other iron deficiency anemias; D47.2 Monoclonal gammopathy; R22.0 Localized swelling, mass and lump, head
CPT/HCPCS: 36415; 36593; 80053; 85025; 96374; J2997

== ENCOUNTER 2020-11-12 12:37 | Outpatient (CLI) | payer MEDICARE, SELFPAY ==
--- NOTE | 2020-11-12 12:59 | XR_ITS ---
WS: [id number] Exam: XR tibia fibula RT 2V [id number] Date/Time of Exam: 11/12/2020 2:04 PM Reason For Exam: RIGHT LEG PAIN No fracture or dislocation. No sign of bone destruction. Degenerative changes at the knee and ankle. Soft tissues are unremarkable. XR/XR tibia fibula RT 2V [id number] IMPRESSION: 1. No fracture or bone destruction noted.
--- NOTE | 2020-11-12 12:59 | USCV_ITS ---
Valentin Clark Age: 70 Gender: F : 1950 Exam Date: 11/12/2020 13:30 Ordering Phys: Luis Manuel Jimenes DO Technologist: Merrill Young Exam Location: [facility] – [place], [place]_ Indication: SWELLING AND PAIN IN LEFT ARM PROCEDURES: Venous duplex imaging was performed in only the left upper extremity. The following venous structures were evaluated: internal jugular vein, subclavian vein, axillary vein, and brachial veins. In addition, the basilic vein, cephalic vein, radial vein, and ulnar vein. Serial compression, augmentation maneuvers, and spectral Doppler flow evaluation were performed. FINDINGS: DVT in the left innominate, jugular, and subclavian veins. DVT in the left jugular appeared very mobile. All other veins examined appear free of thrombus at this time. CONCLUSIONS Acute DVT left inominate, subclavian and jugualar veins. Report called at time of exam to Dr. Jimenes. Dr. Marj Silva DO (Electronically Signed) Final Date: 12 November 2020 14:33 S
--- NOTE | 2020-11-12 12:59 | XR_ITS ---
WS: [id number] Exam: [place] [id number] Date/Time of Exam: 11/12/2020 2:04 PM Reason For Exam: MULTIPLE MYELOMA/SWELING OF L ARM/PAIN IN LEFT UPPER ARM No fracture or dislocation. No sign of bone destruction. Articular relationships are intact. There is degenerative change at the glenohumeral joint at the lower margin of the glenoid. A left subclavian port is visualized. XR/[place] [id number] IMPRESSION: 1. No fracture or bone destruction. 2. Degenerative changes at the glenohumeral joint as noted above.
--- NOTE | 2020-11-12 12:59 | XR_ITS ---
WS: [id number] Exam: XR shoulder LT min 2V* [id number] Date/Time of Exam: 11/12/2020 2:04 PM Reason For Exam: SWELLING OF L ARM/PAIN IN LEFT UPPER ARM No fracture or dislocation. There are degenerative changes at the glenohumeral joint. Osteophyte form ation along the lower margin of the glenoid. Mild AC joint DJD. Normal soft tissues. Left subclavian port noted. XR/XR shoulder LT min 2V* [id number] IMPRESSION: 1. Degenerative changes of the glenohumeral joint and the AC joint. 2. No fracture or bone destruction.
== END 2020-11-12 12:38 | disposition home or self-care (01) ==
PROVIDERS: PCP Electrodiagnostic Medicine; Visit Provider Electrodiagnostic Medicine
DX: C90.00 Multiple myeloma not having achieved remission (principal); M79.89 Other specified soft tissue disorders; M79.604 Pain in right leg; M79.622 Pain in left upper arm; I82.622 Acute embolism and thrombosis of deep veins of left upper extremity; I82.290 Acute embolism and thrombosis of other thoracic veins; I82.890 Acute embolism and thrombosis of other specified veins
CPT/HCPCS: 73030; 73060; 73590; 93971

== ENCOUNTER 2020-11-16 19:41 | Emergency (ER) | payer MEDICARE, SELFPAY ==
[2020-11-16 19:57] VITALS: BP 134/93; PULSE 77; RESP 18; TEMP 36.8; O2SAT 96; BMI 35.4
[2020-11-16 20:38] VITALS: PULSE 84
--- NOTE | 2020-11-16 20:46 | USR_ITS ---
PROCEDURE INFORMATION: Exam: US Duplex Left Upper Extremity Veins, Limited Exam date and time: 11/16/2020 9:30 PM Age: 70 years old Clinical indication: Screening exam; Dvt seen 11/12/2020; Additional info: Dvt with worsening of symptoms for 5 days TECHNIQUE: Imaging protocol: Real-time Duplex ultrasound of the Left Upper Extremity with 2-D pederson scale, color Doppler flow and spectral waveform analysis with image documentation. Limited exam focused on the left upper extremity veins. COMPARISON: No relevant prior studies available. FINDINGS: Left deep veins: There is occlusive thrombus in the left internal jugular and left subclavian veins. The left axillary, brachial, basilic, cephalic, radial, and ulnar veins are patent. Left superficial veins: No superficial venous thrombosis. Soft tissues: Unremarkable. US/[place] [id number] IMPRESSION: Occlusive thrombus in the left subclavian and internal jugular veins. Based on the egg trayer's report, this finding has been present since 11/12/2020, although no prior exam is available for comparison at this time.
[2020-11-16 21:00] LABS: Basophils # 0.1 10^3/uL (0.0-0.1); Basophils % 1.4 %; Eosinophils # 0.2 10^3/uL (0.0-0.8); Eosinophils % 2.7 %; Hematocrit 36.3 % (37.0-47.0); Hemoglobin 11.3 g/dL (11.5-15.3); Lymphocytes # 1.7 10^3/uL (0.8-4.8); Mean Corpuscular HGB Conc 31.1 g/dL (30.0-36.0); Mean Corpuscular Hemoglobin 28.4 pg (28.0-34.0); Mean Corpuscular Volume 91.2 fL (81-99); Mean Platelet Volume 12.1 fL (7.4-10.4); Monocytes # 0.7 10^3/uL (0.2-0.9); Monocytes % 13.2 %; Neutrophils % 51.5 %; Nucleated Red Blood Cells % 0 %; Platelet Count 223 10^3/cmm (130-400); Red Blood Count 3.98 10^6/uL (4.1-5.3); Red Cell Distribution Width 15.9 % (12.1-15.1); White Blood Count 5.6 10^3/uL (4.0-10.0)
[2020-11-16 21:09] LABS: INR 0.94 (0.8-1.2)
[2020-11-16 21:10] LABS: Partial Thromboplastin Time 30.2 SECONDS (23.9-36.7)
[2020-11-16 21:13] LABS: Fibrinogen 424 mg/dL (174-498)
[2020-11-16 21:17] LABS: Alanine Aminotransferase 14 U/L (0-33); Albumin Level 3.4 g/dL (3.5-5.2); Alkaline Phosphatase 90 IU/L (35-105); Anion Gap 11.4 (5-19); Aspartate Amino Transferase 25 U/L (0-32); Blood Urea Nitrogen 10 mg/dL (8-23); Calcium 8.8 mg/dL (8.5-10.5); Carbon Dioxide 24 mmol/L (22-29); Chloride 112 mmol/L (98-107); Glomerular Filtration Rate 40.6 mL/min (90-130); Glucose 132 mg/dL (65-115); Osmolality Calculated 299 mOsm/kg (285-295); Potassium 3.4 mmol/L (3.5-5.1); Sodium 144 mmol/L (136-145); Total Bilirubin 0.2 mg/dL (0.15-1.2); Total Protein 5.4 g/dL (6.6-8.7)
[2020-11-16 21:35] VITALS: BP 134/63; PULSE 70; RESP 18; O2SAT 97
[2020-11-16 21:44] LABS: Partial Thromboplastin Time 31.4 SECONDS (23.9-36.7)
--- NOTE | 2020-11-16 21:54 | ED_ITS ---
Documented by User: Michoacano Osborne 11/17/20 01:02 HPI - Extremity Problem General: Chief complaint: Extremity Injury, Upper Stated complaint: suspects blood clot upper left arm, side Time Seen by Provider: 11/16/20 20:30 Source: patient Mode of arrival: ambulatory Limitations: no limitations History of Present Illness: HPI Narrative: 70-year-old female presents emergency room chief complaint increased swelling and discomfort noted to her left breast and left upper extremity. Patient has a history of multiple myeloma which she had a port placed in her left chest area approximately a year ago. The patient reports over the last several days she is reported increased swelling and discomfort in which her primary care doctor on 12 November ordered a ultrasound of the upper extremity that revealed an acute DVT involving the left IJ left subclavian and innominate vessels patient was started on a higher dose of Plavix. The patient does not report having any obvious chest pain or shortness of breath. She presents in today after contacting her doctor as she has increased swelling discomfort noted to the left arm into the left breast. MD Complaint: extremity pain and extremity swelling Onset (ago): day(s) (4) PFS ED PFSH: Medical History COVID-19 Depression FHx: cholecystectomy Gastroesophageal reflux H/O intracranial mass (~07/20/18) Open biopsy/resection of mass, Dr Landry 07/20/18 Hypertension MRSA (methicillin resistant staph aureus) culture positive Multiple myeloma -has hx of IgG lambda myeloma -has had radiation treatment -f/u with Dr. 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 Landry -has had persistent open wound at area of biopsy; wound care daily Pulmonary embolism -has hx of bilateral PE -continue AC with Eliquis Rash and nonspecific skin eruption Surgical History H/O cataract removal with insertion of prosthetic lens History of appendectomy Hx of tonsillectomy Status post craniectomy Family History Mother CAD (coronary artery disease) Diabetes Sister CAD (coronary artery disease) Diabetes Brother Cancer Diabetes Social History Smoking and tobacco status: never smoked Alcohol intake: never Housing: House Marital status: Single History of recent travel: No Physical Exam Const: COMMON NORMALS: no acute distress, patient oriented x3 and healthy appearing HENMT: COMMON NORMALS: normocephalic and atraumatic HEAD & SCALP: normocephalic and atraumatic Eye: COMMON NORMALS: Equal, round and reactive pupils present and EOMs intact bilaterally PUPIL: Yes Equal, round and reactive pupils present Neck/C-Spine: COMMON NORMALS: full ROM, supple and no JVD Lymph: LYMPHATIC: no lymphadenopathy noted Chest: COMMONS NORMALS: normal inspection of the chest and normal palpation of entire chest wall Resp: COMMON NORMALS: normal respiratory effort, No retractions and clear to auscultation bilaterally EFFORT & INSPECTION: Yes able to speak in complete sentences and Yes symmetric chest movement AUSCULTATION: clear to auscultation bilaterally Cardio: COMMON NORMALS: no JVD, regular rate and regular rhythm RATE: regular rate RHYTHM: regular rhythm GI: COMMON NORMALS: Normal to inspection, nondistended, normoactive bowel sounds present, Soft to palpation and non-tender INSPECTION: Yes normal to inspection PALPATION: Yes Soft to palpation : COMMON NORMALS: Yes no CVA tenderness BLADDER/KIDNEY EXAM: Yes no CVA tenderness Back/Pelvis: COMMON NORMALS: no CVA tenderness Extremity: COMMON NORMALS: normal to inspection and full ROM Neuro: COMMON NORMALS: patient oriented x3, CN's II-XII intact bilaterally, moves all extremities and no focal motor deficits Psych: COMMON NORMALS: mental status grossly normal, Normal thought process present, cooperative and normal affect THOUGHT PROCESS: Normal thought process present Skin: COMMON NORMALS: no rashes or lesions noted GENERAL SKIN EXAM: no rashes or lesions noted Course Vital Signs: Vital signs: Vital Signs Temperature 98.3 F 11/16/20 19:57 Pulse Rate 72 11/17/20 18:35 Respiratory Rate 18 11/17/20 18:35 Blood Pressure 166/61 11/17/20 18:35 Pulse Oximetry 95 11/17/20 18:35 MDM - Extremity (Nontraumatic) MDM Narrative: Medical decision making narrative: Due to patient's significant history and lab work and imaging was obtained imaging reveals what appears to be extension of the occlusive thrombus noted to left subclavian internal jugular veins on the ultrasound results and also looks like there is some dilation around the thrombus itself. Patient had a CT angiogram of the chest obtained did not reveal any obvious pulmonary embolism or other findings. Do to this patient was started on a heparin bolus and drip. Due to lack of bed availability in our facility lack of cardiothoracic or vascular services contacted [facility] for further evaluation potential transfer. Spoke to the emergency room department at [facility] they recommended contacting the vascular surgeon for further evaluation and potential acceptance. Spoke to at [facility] there are recommends admission to the hospital service with him to consult edition recommends anticoagulation this time. Spoke to [facility] in which there is no current medical telemetry beds available which patient does not qualify going to the ER this patient will be on their waiting list at this time. Patient was signed out to my colleague Dr. Weir at 0102. Lab Data: Labs: Lab Results 11/16/20 11/16/20 11/16/20 Range/Units 20:10 20:10 20:10 WBC 5.6 (4.0-10.0) 10^3/ uL RBC 3.98 L (4.1-5.3) 10^6/u L Hgb 11.3 L (11.5-15.3) g/dL Hct 36.3 L (37.0-47.0) % MCV 91.2 (81-99) fL MCH 28.4 (28.0-34.0) pg MCHC 31.1 (30.0-36.0) g/dL RDW 15.9 H (12.1-15.1) % Plt Count 223 223 (130-400) 10^3/c mm MPV 12.1 H (7.4-10.4) fL Neut % (Auto) 51.5 % Lymph % (Auto) 31.0 % Mcmullen % (Auto) 13.2 % Eos % (Auto) 2.7 % Baso % (Auto) 1.4 % Neut # (Auto) 2.90 (1.8-7.7) 10^3/u L Lymph # (Auto) 1.7 (0.8-4.8) 10^3/u L Mcmullen # (Auto) 0.7 (0.2-0.9) 10^3/u L Eos # (Auto) 0.2 (0.0-0.8) 10^3/u L Baso # (Auto) 0.1 (0.0-0.1) 10^3/u L Nucleated RBC % (a uto) 0 % Nucleated RBCs # 0.0 /100WBC PT 12.90 (12.1-14.9) SECO NDS INR 0.94 (0.8-1.2) APTT 30.2 (23.9-36.7) SECO NDS Fibrinogen 424 (174-498) mg/dL Sodium 144 (136-145) mmol/L Potassium 3.4 L (3.5-5.1) mmol/L Chloride 112 H (98-107) mmol/L Carbon Dioxide 24 (22-29) mmol/L Anion Gap 11.4 (5-19) BUN 10 (8-23) mg/dL Creatinine 1.3 H (0.5-0.9) mg/dL GFR Calculation 40.6 L (90-130) mL/min Glucose 132 H (65-115) mg/dL Calculated Osmolal ity 299 H (285-295) mOsm/k g Calcium 8.8 (8.5-10.5) mg/dL Total Bilirubin 0.2 (0.15-1.2) mg/dL AST 25 (0-32) U/L ALT 14 (0-33) U/L Alkaline Phosphata se 90 (35-105) IU/L Total Protein 5.4 L (6.6-8.7) g/dL Albumin 3.4 L (3.5-5.2) g/dL Globulin 2.0 (1.3-4.6) g/dL Urine Color (Yellow) Urine Appearance (CLEAR) Urine pH (5-7) Ur Specific Gravit y (1.005-1.030) Urine Protein (Negative) Urine Glucose (UA) (Normal) Urine Ketones (Negative) Urine Blood (Negative) Urine Nitrate (Negative) Urine Bilirubin (Negative) Urine Urobilinogen (Negative) mg/dL Ur Leukocyte Marybel ase (Negative) SARS-CoV-2 Ag (Rap id) (Negative) 11/16/20 11/16/20 11/17/20 Range/Units 20:10 23:55 06:35 WBC (4.0-10.0) 10^3/ uL RBC (4.1-5.3) 10^6/u L Hgb (11.5-15.3) g/dL Hct (37.0-47.0) % MCV (81-99) fL MCH (28.0-34.0) pg MCHC (30.0-36.0) g/dL RDW (12.1-15.1) % Plt Count (130-400) 10^3/c mm MPV (7.4-10.4) fL Neut % (Auto) % Lymph % (Auto) % Mcmullen % (Auto) % Eos % (Auto) % Baso % (Auto) % Neut # (Auto) (1.8-7.7) 10^3/u L Lymph # (Auto) (0.8-4.8) 10^3/u L Mcmullen # (Auto) (0.2-0.9) 10^3/u L Eos # (Auto) (0.0-0.8) 10^3/u L Baso # (Auto) (0.0-0.1) 10^3/u L Nucleated RBC % (a uto) % Nucleated RBCs # /100WBC PT (12.1-14.9) SECO NDS INR (0.8-1.2) APTT 31.4 192.0 H* D (23.9-36.7) SECO NDS Fibrinogen (174-498) mg/dL Sodium (136-145) mmol/L Potassium (3.5-5.1) mmol/L Chloride (98-107) mmol/L Carbon Dioxide (22-29) mmol/L Anion Gap (5-19) BUN (8-23) mg/dL Creatinine (0.5-0.9) mg/dL GFR Calculation (90-130) mL/min Glucose (65-115) mg/dL Calculated Osmolal ity (285-295) mOsm/k g Calcium (8.5-10.5) mg/dL Total Bilirubin (0.15-1.2) mg/dL AST (0-32) U/L ALT (0-33) U/L Alkaline Phosphata se (35-105) IU/L Total Protein (6.6-8.7) g/dL Albumin (3.5-5.2) g/dL Globulin (1.3-4.6) g/dL Urine Color (Yellow) Urine Appearance (CLEAR) Urine pH (5-7) Ur Specific Gravit y (1.005-1.030) Urine Protein (Negative) Urine Glucose (UA) (Normal) Urine Ketones (Negative) Urine Blood (Negative) Urine Nitrate (Negative) Urine Bilirubin (Negative) Urine Urobilinogen (Negative) mg/dL Ur Leukocyte Marybel ase (Negative) SARS-CoV-2 Ag (Rap id) Negative (Negative) 11/17/20 11/17/20 11/17/20 Range/Units 11:35 12:30 16:38 WBC (4.0-10.0) 10^3/ uL RBC (4.1-5.3) 10^6/u L Hgb (11.5-15.3) g/dL Hct (37.0-47.0) % MCV (81-99) fL MCH (28.0-34.0) pg MCHC (30.0-36.0) g/dL RDW (12.1-15.1) % Plt Count (130-400) 10^3/c mm MPV (7.4-10.4) fL Neut % (Auto) % Lymph % (Auto) % Mcmullen % (Auto) % Eos % (Auto) % Baso % (Auto) % Neut # (Auto) (1.8-7.7) 10^3/u L Lymph # (Auto) (0.8-4.8) 10^3/u L Mcmullen # (Auto) (0.2-0.9) 10^3/u L Eos # (Auto) (0.0-0.8) 10^3/u L Baso # (Auto) (0.0-0.1) 10^3/u L Nucleated RBC % (a uto) % Nucleated RBCs # /100WBC PT (12.1-14.9) SECO NDS INR (0.8-1.2) APTT Cancelled 31.9 D (23.9-36.7) SECO NDS Fibrinogen (174-498) mg/dL Sodium (136-145) mmol/L Potassium (3.5-5.1) mmol/L Chloride (98-107) mmol/L Carbon Dioxide (22-29) mmol/L Anion Gap (5-19) BUN (8-23) mg/dL Creatinine (0.5-0.9) mg/dL GFR Calculation (90-130) mL/min Glucose (65-115) mg/dL Calculated Osmolal ity (285-295) mOsm/k g Calcium (8.5-10.5) mg/dL Total Bilirubin (0.15-1.2) mg/dL AST (0-32) U/L ALT (0-33) U/L Alkaline Phosphata se (35-105) IU/L Total Protein (6.6-8.7) g/dL Albumin (3.5-5.2) g/dL Globulin (1.3-4.6) g/dL Urine Color Straw (Yellow) Urine Appearance Clear (CLEAR) Urine pH 6 (5-7) Ur Specific Gravit y 1.005 (1.005-1.030) Urine Protein Neg (Negative) Urine Glucose (UA) Norm (Normal) Urine Ketones Negative (Negative) Urine Blood Neg (Negative) Urine Nitrate Negative (Negative) Urine Bilirubin Neg (Negative) Urine Urobilinogen Norm (Negative) mg/dL Ur Leukocyte Marybel ase Negative (Negative) SARS-CoV-2 Ag (Rap id) (Negative) 11/17/20 Range/Units 16:54 WBC (4.0-10.0) 10^3/ uL RBC (4.1-5.3) 10^6/u L Hgb (11.5-15.3) g/dL Hct (37.0-47.0) % MCV (81-99) fL MCH (28.0-34.0) pg MCHC (30.0-36.0) g/dL RDW (12.1-15.1) % Plt Count (130-400) 10^3/c mm MPV (7.4-10.4) fL Neut % (Auto) % Lymph % (Auto) % Mcmullen % (Auto) % Eos % (Auto) % Baso % (Auto) % Neut # (Auto) (1.8-7.7) 10^3/u L Lymph # (Auto) (0.8-4.8) 10^3/u L Mcmullen # (Auto) (0.2-0.9) 10^3/u L Eos # (Auto) (0.0-0.8) 10^3/u L Baso # (Auto) (0.0-0.1) 10^3/u L Nucleated RBC % (a uto) % Nucleated RBCs # /100WBC PT (12.1-14.9) SECO NDS INR (0.8-1.2) APTT 29.8 (23.9-36.7) SECO NDS Fibrinogen (174-498) mg/dL Sodium (136-145) mmol/L Potassium (3.5-5.1) mmol/L Chloride (98-107) mmol/L Carbon Dioxide (22-29) mmol/L Anion Gap (5-19) BUN (8-23) mg/dL Creatinine (0.5-0.9) mg/dL GFR Calculation (90-130) mL/min Glucose (65-115) mg/dL Calculated Osmolal ity (285-295) mOsm/k g Calcium (8.5-10.5) mg/dL Total Bilirubin (0.15-1.2) mg/dL AST (0-32) U/L ALT (0-33) U/L Alkaline Phosphata se (35-105) IU/L Total Protein (6.6-8.7) g/dL Albumin (3.5-5.2) g/dL Globulin (1.3-4.6) g/dL Urine Color (Yellow) Urine Appearance (CLEAR) Urine pH (5-7) Ur Specific Gravit y (1.005-1.030) Urine Protein (Negative) Urine Glucose (UA) (Normal) Urine Ketones (Negative) Urine Blood (Negative) Urine Nitrate (Negative) Urine Bilirubin (Negative) Urine Urobilinogen (Negative) mg/dL Ur Leukocyte Marybel ase (Negative) SARS-CoV-2 Ag (Rap id) (Negative) Discharge Plan Discharge Patient Disposition: Xfer Other Clinical Impression: Acute internal jugular vein thrombosis, Subclavian vein occlusion Deep venous thrombosis of arm Qualifiers: Chronicity: acute Condition: Stable Referrals: Luis Manuel Jimenes DO [Primary Care Provider] - Sign Out Sign Out Data: Patient Sign Out occurred on 11/17/20 at 07:03. Patient's care was discussed, and care was transferred from to Garrison Linares DO. Coding Level of Care Code ED Gaming Department Head for Chg Fwd Exam Comprehensive Documented by User: Daniel Weir DO 11/17/20 03:08 HPI - Extremity Problem General: Chief complaint: Extremity Injury, Upper Stated complaint: suspects blood clot upper left arm, side Time Seen by Provider: 11/16/20 20:30 PFSH ED PFSH: Medical History COVID-19 Depression FHx: cholecystectomy Gastroesophageal reflux H/O intracranial mass (~07/20/18) Open biopsy/resection of mass, Dr Landry 07/20/18 Hypertension MRSA (methicillin resistant staph aureus) culture positive Multiple myeloma -has hx of IgG lambda myeloma -has had radiation treatment -f/u with Dr. 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 Landry -has had persistent open wound at area of biopsy; wound care daily Pulmonary embolism -has hx of bilateral PE -continue AC with Eliquis Rash and nonspecific skin eruption Surgical History H/O cataract removal with insertion of prosthetic lens History of appendectomy Hx of tonsillectomy Status post craniectomy Family History Mother CAD (coronary artery disease) Diabetes Sister CAD (coronary artery disease) Diabetes Brother Cancer Diabetes Social History Smoking and tobacco status: never smoked Alcohol intake: never Housing: House Marital status: Single History of recent travel: No Course Vital Signs: Vital signs: Vital Signs Temperature 98.3 F 11/16/20 19:57 Pulse Rate 72 11/17/20 18:35 Respiratory Rate 18 11/17/20 18:35 Blood Pressure 166/61 11/17/20 18:35 Pulse Oximetry 95 11/17/20 18:35 MDM - Extremity (Nontraumatic) MDM Narrative: Medical decision making narrative: 70-year-old female with an extensive upper extremity DVT checked out to me by Dr. José at shift change. She remains stable. No complaints of chest pain or shortness of breath. Blood pressure is 140-150 systolic. She had been started on Eliquis for the known upper extremity clot, but it appears extensive, and possibly unstable, as there is free-floating clot present on ultrasound. CTA is negative. Dr. Osborne has spoken with vascular surgery at [facility] in [place]. They suggested hospitalist admission, and that they would consult. They also recommended full anticoagulation. The patient is on a heparin drip, and tolerating well. I spoke with Dr. Cobb at [facility], who states she will take in transfer, but that they do not have telemetry beds currently, just as we do not have any beds currently. We are on the waiting list. they are to call bed is available Lab Data: Labs: Lab Results 11/16/20 11/16/20 11/16/20 Range/Units 20:10 20:10 20:10 WBC 5.6 (4.0-10.0) 10^3/ uL RBC 3.98 L (4.1-5.3) 10^6/u L Hgb 11.3 L (11.5-15.3) g/dL Hct 36.3 L (37.0-47.0) % MCV 91.2 (81-99) fL MCH 28.4 (28.0-34.0) pg MCHC 31.1 (30.0-36.0) g/dL RDW 15.9 H (12.1-15.1) % Plt Count 223 223 (130-400) 10^3/c mm MPV 12.1 H (7.4-10.4) fL Neut % (Auto) 51.5 % Lymph % (Auto) 31.0 % Mcmullen % (Auto) 13.2 % Eos % (Auto) 2.7 % Baso % (Auto) 1.4 % Neut # (Auto) 2.90 (1.8-7.7) 10^3/u L Lymph # (Auto) 1.7 (0.8-4.8) 10^3/u L Mcmullen # (Auto) 0.7 (0.2-0.9) 10^3/u L Eos # (Auto) 0.2 (0.0-0.8) 10^3/u L Baso # (Auto) 0.1 (0.0-0.1) 10^3/u L Nucleated RBC % (a uto) 0 % Nucleated RBCs # 0.0 /100WBC PT 12.90 (12.1-14.9) SECO NDS INR 0.94 (0.8-1.2) APTT 30.2 (23.9-36.7) SECO NDS Fibrinogen 424 (174-498) mg/dL Sodium 144 (136-145) mmol/L Potassium 3.4 L (3.5-5.1) mmol/L Chloride 112 H (98-107) mmol/L Carbon Dioxide 24 (22-29) mmol/L Anion Gap 11.4 (5-19) BUN 10 (8-23) mg/dL Creatinine 1.3 H (0.5-0.9) mg/dL GFR Calculation 40.6 L (90-130) mL/min Glucose 132 H (65-115) mg/dL Calculated Osmolal ity 299 H (285-295) mOsm/k g Calcium 8.8 (8.5-10.5) mg/dL Total Bilirubin 0.2 (0.15-1.2) mg/dL AST 25 (0-32) U/L ALT 14 (0-33) U/L Alkaline Phosphata se 90 (35-105) IU/L Total Protein 5.4 L (6.6-8.7) g/dL Albumin 3.4 L (3.5-5.2) g/dL Globulin 2.0 (1.3-4.6) g/dL Urine Color (Yellow) Urine Appearance (CLEAR) Urine pH (5-7) Ur Specific Gravit y (1.005-1.030) Urine Protein (Negative) Urine Glucose (UA) (Normal) Urine Ketones (Negative) Urine Blood (Negative) Urine Nitrate (Negative) Urine Bilirubin (Negative) Urine Urobilinogen (Negative) mg/dL Ur Leukocyte Marybel ase (Negative) SARS-CoV-2 Ag (Rap id) (Negative) 11/16/20 11/16/20 11/17/20 Range/Units 20:10 23:55 06:35 WBC (4.0-10.0) 10^3/ uL RBC (4.1-5.3) 10^6/u L Hgb (11.5-15.3) g/dL Hct (37.0-47.0) % MCV (81-99) fL MCH (28.0-34.0) pg MCHC (30.0-36.0) g/dL RDW (12.1-15.1) % Plt Count (130-400) 10^3/c mm MPV (7.4-10.4) fL Neut % (Auto) % Lymph % (Auto) % Mcmullen % (Auto) % Eos % (Auto) % Baso % (Auto) % Neut # (Auto) (1.8-7.7) 10^3/u L Lymph # (Auto) (0.8-4.8) 10^3/u L Mcmullen # (Auto) (0.2-0.9) 10^3/u L Eos # (Auto) (0.0-0.8) 10^3/u L Baso # (Auto) (0.0-0.1) 10^3/u L Nucleated RBC % (a uto) % Nucleated RBCs # /100WBC PT (12.1-14.9) SECO NDS INR (0.8-1.2) APTT 31.4 192.0 H* D (23.9-36.7) SECO NDS Fibrinogen (174-498) mg/dL Sodium (136-145) mmol/L Potassium (3.5-5.1) mmol/L Chloride (98-107) mmol/L Carbon Dioxide (22-29) mmol/L Anion Gap (5-19) BUN (8-23) mg/dL Creatinine (0.5-0.9) mg/dL GFR Calculation (90-130) mL/min Glucose (65-115) mg/dL Calculated Osmolal ity (285-295) mOsm/k g Calcium (8.5-10.5) mg/dL Total Bilirubin (0.15-1.2) mg/dL AST (0-32) U/L ALT (0-33) U/L Alkaline Phosphata se (35-105) IU/L Total Protein (6.6-8.7) g/dL Albumin (3.5-5.2) g/dL Globulin (1.3-4.6) g/dL Urine Color (Yellow) Urine Appearance (CLEAR) Urine pH (5-7) Ur Specific Gravit y (1.005-1.030) Urine Protein (Negative) Urine Glucose (UA) (Normal) Urine Ketones (Negative) Urine Blood (Negative) Urine Nitrate (Negative) Urine Bilirubin (Negative) Urine Urobilinogen (Negative) mg/dL Ur Leukocyte Marybel ase (Negative) SARS-CoV-2 Ag (Rap id) Negative (Negative) 11/17/20 11/17/20 11/17/20 Range/Units 11:35 12:30 16:38 WBC (4.0-10.0) 10^3/ uL RBC (4.1-5.3) 10^6/u L Hgb (11.5-15.3) g/dL Hct (37.0-47.0) % MCV (81-99) fL MCH (28.0-34.0) pg MCHC (30.0-36.0) g/dL RDW (12.1-15.1) % Plt Count (130-400) 10^3/c mm MPV (7.4-10.4) fL Neut % (Auto) % Lymph % (Auto) % Mcmullen % (Auto) % Eos % (Auto) % Baso % (Auto) % Neut # (Auto) (1.8-7.7) 10^3/u L Lymph # (Auto) (0.8-4.8) 10^3/u L Mcmullen # (Auto) (0.2-0.9) 10^3/u L Eos # (Auto) (0.0-0.8) 10^3/u L Baso # (Auto) (0.0-0.1) 10^3/u L Nucleated RBC % (a uto) % Nucleated RBCs # /100WBC PT (12.1-14.9) SECO NDS INR (0.8-1.2) APTT Cancelled 31.9 D (23.9-36.7) SECO NDS Fibrinogen (174-498) mg/dL Sodium (136-145) mmol/L Potassium (3.5-5.1) mmol/L Chloride (98-107) mmol/L Carbon Dioxide (22-29) mmol/L Anion Gap (5-19) BUN (8-23) mg/dL Creatinine (0.5-0.9) mg/dL GFR Calculation (90-130) mL/min Glucose (65-115) mg/dL Calculated Osmolal ity (285-295) mOsm/k g Calcium (8.5-10.5) mg/dL Total Bilirubin (0.15-1.2) mg/dL AST (0-32) U/L ALT (0-33) U/L Alkaline Phosphata se (35-105) IU/L Total Protein (6.6-8.7) g/dL Albumin (3.5-5.2) g/dL Globulin (1.3-4.6) g/dL Urine Color Straw (Yellow) Urine Appearance Clear (CLEAR) Urine pH 6 (5-7) Ur Specific Gravit y 1.005 (1.005-1.030) Urine Protein Neg (Negative) Urine Glucose (UA) Norm (Normal) Urine Ketones Negative (Negative) Urine Blood Neg (Negative) Urine Nitrate Negative (Negative) Urine Bilirubin Neg (Negative) Urine Urobilinogen Norm (Negative) mg/dL Ur Leukocyte Marybel ase Negative (Negative) SARS-CoV-2 Ag (Rap id) (Negative) 11/17/20 Range/Units 16:54 WBC (4.0-10.0) 10^3/ uL RBC (4.1-5.3) 10^6/u L Hgb (11.5-15.3) g/dL Hct (37.0-47.0) % MCV (81-99) fL MCH (28.0-34.0) pg MCHC (30.0-36.0) g/dL RDW (12.1-15.1) % Plt Count (130-400) 10^3/c mm MPV (7.4-10.4) fL Neut % (Auto) % Lymph % (Auto) % Mcmullen % (Auto) % Eos % (Auto) % Baso % (Auto) % Neut # (Auto) (1.8-7.7) 10^3/u L Lymph # (Auto) (0.8-4.8) 10^3/u L Mcmullen # (Auto) (0.2-0.9) 10^3/u L Eos # (Auto) (0.0-0.8) 10^3/u L Baso # (Auto) (0.0-0.1) 10^3/u L Nucleated RBC % (a uto) % Nucleated RBCs # /100WBC PT (12.1-14.9) SECO NDS INR (0.8-1.2) APTT 29.8 (23.9-36.7) SECO NDS Fibrinogen (174-498) mg/dL Sodium (136-145) mmol/L Potassium (3.5-5.1) mmol/L Chloride (98-107) mmol/L Carbon Dioxide (22-29) mmol/L Anion Gap (5-19) BUN (8-23) mg/dL Creatinine (0.5-0.9) mg/dL GFR Calculation (90-130) mL/min Glucose (65-115) mg/dL Calculated Osmolal ity (285-295) mOsm/k g Calcium (8.5-10.5) mg/dL Total Bilirubin (0.15-1.2) mg/dL AST (0-32) U/L ALT (0-33) U/L Alkaline Phosphata se (35-105) IU/L Total Protein (6.6-8.7) g/dL Albumin (3.5-5.2) g/dL Globulin (1.3-4.6) g/dL Urine Color (Yellow) Urine Appearance (CLEAR) Urine pH (5-7) Ur Specific Gravit y (1.005-1.030) Urine Protein (Negative) Urine Glucose (UA) (Normal) Urine Ketones (Negative) Urine Blood (Negative) Urine Nitrate (Negative) Urine Bilirubin (Negative) Urine Urobilinogen (Negative) mg/dL Ur Leukocyte Marybel ase (Negative) SARS-CoV-2 Ag (Rap id) (Negative) Discharge Plan Discharge Patient Disposition: Xfer Other Clinical Impression: Acute internal jugular vein thrombosis, Subclavian vein occlusion Deep venous thrombosis of arm Qualifiers: Chronicity: acute Condition: Stable Referrals: Luis Manuel Jimenes DO [Primary Care Provider] - Sign Out Sign Out Data: Patient Sign Out occurred on 11/17/20 at 07:03. Patient's care was discussed, and care was transferred from to Garrison Linares DO. Coding Level of Care Code ED Gaming Department Head for Chg Fwd Exam Comprehensive Documented by User: Garrison Linares DO 11/19/20 11:33 HPI - Extremity Problem General: Chief complaint: Extremity Injury, Upper Stated complaint: suspects blood clot upper left arm, side Time Seen by Provider: 11/16/20 20:30 PFSH ED PFSH: Medical History COVID-19 Depression FHx: cholecystectomy Gastroesophageal reflux H/O intracranial mass (~07/20/18) Open biopsy/resection of mass, Dr Landry 07/20/18 Hypertension MRSA (methicillin resistant staph aureus) culture positive Multiple myeloma -has hx of IgG lambda myeloma -has had radiation treatment -f/u with Dr. 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 Landry -has had persistent open wound at area of biopsy; wound care daily Pulmonary embolism -has hx of bilateral PE -continue AC with Eliquis Rash and nonspecific skin eruption Surgical History H/O cataract removal with insertion of prosthetic lens History of appendectomy Hx of tonsillectomy Status post craniectomy Family History Mother CAD (coronary artery disease) Diabetes Sister CAD (coronary artery disease) Diabetes Brother Cancer Diabetes Social History Smoking and tobacco status: never smoked Alcohol intake: never Housing: House Marital status: Single History of recent travel: No Course Vital Signs: Vital signs: Vital Signs Temperature 98.3 F 11/16/20 19:57 Pulse Rate 72 01/02/21 18:35 Respiratory Rate 18 11/17/20 18:35 Blood Pressure 166/61 11/17/20 18:35 Pulse Oximetry 95 11/17/20 18:35 MDM - Extremity (Nontraumatic) MDM Narrative: Medical decision making narrative: Care assumed a change of shift we are waiting on transfer to [place]. Patient transferred to [place] via ambulance. Remained stable during this time. Is on heparin. We did have an elevated PTT heparin was stopped and PTT reassessed. Lab Data: Labs: Lab Results 11/16/20 11/16/20 11/16/20 Range/Units 20:10 20:10 20:10 WBC 5.6 (4.0-10.0) 10^3/ uL RBC 3.98 L (4.1-5.3) 10^6/u L Hgb 11.3 L (11.5-15.3) g/dL Hct 36.3 L (37.0-47.0) % MCV 91.2 (81-99) fL MCH 28.4 (28.0-34.0) pg MCHC 31.1 (30.0-36.0) g/dL RDW 15.9 H (12.1-15.1) % Plt Count 223 223 (130-400) 10^3/c mm MPV 12.1 H (7.4-10.4) fL Neut % (Auto) 51.5 % Lymph % (Auto) 31.0 % Mcmullen % (Auto) 13.2 % Eos % (Auto) 2.7 % Baso % (Auto) 1.4 % Neut # (Auto) 2.90 (1.8-7.7) 10^3/u L Lymph # (Auto) 1.7 (0.8-4.8) 10^3/u L Mcmullen # (Auto) 0.7 (0.2-0.9) 10^3/u L Eos # (Auto) 0.2 (0.0-0.8) 10^3/u L Baso # (Auto) 0.1 (0.0-0.1) 10^3/u L Nucleated RBC % (a uto) 0 % Nucleated RBCs # 0.0 /100WBC PT 12.90 (12.1-14.9) SECO NDS INR 0.94 (0.8-1.2) APTT 30.2 (23.9-36.7) SECO NDS Fibrinogen 424 (174-498) mg/dL Sodium 144 (136-145) mmol/L Potassium 3.4 L (3.5-5.1) mmol/L Chloride 112 H (98-107) mmol/L Carbon Dioxide 24 (22-29) mmol/L Anion Gap 11.4 (5-19) BUN 10 (8-23) mg/dL Creatinine 1.3 H (0.5-0.9) mg/dL GFR Calculation 40.6 L (90-130) mL/min Glucose 132 H (65-115) mg/dL Calculated Osmolal ity 299 H (285-295) mOsm/k g Calcium 8.8 (8.5-10.5) mg/dL Total Bilirubin 0.2 (0.15-1.2) mg/dL AST 25 (0-32) U/L ALT 14 (0-33) U/L Alkaline Phosphata se 90 (35-105) IU/L Total Protein 5.4 L (6.6-8.7) g/dL Albumin 3.4 L (3.5-5.2) g/dL Globulin 2.0 (1.3-4.6) g/dL Urine Color (Yellow) Urine Appearance (CLEAR) Urine pH (5-7) Ur Specific Gravit y (1.005-1.030) Urine Protein (Negative) Urine Glucose (UA) (Normal) Urine Ketones (Negative) Urine Blood (Negative) Urine Nitrate (Negative) Urine Bilirubin (Negative) Urine Urobilinogen (Negative) mg/dL Ur Leukocyte Marybel ase (Negative) SARS-CoV-2 Ag (Rap id) (Negative) 11/16/20 11/16/20 11/17/20 Range/Units 20:10 23:55 06:35 WBC (4.0-10.0) 10^3/ uL RBC (4.1-5.3) 10^6/u L Hgb (11.5-15.3) g/dL Hct (37.0-47.0) % MCV (81-99) fL MCH (28.0-34.0) pg MCHC (30.0-36.0) g/dL RDW (12.1-15.1) % Plt Count (130-400) 10^3/c mm MPV (7.4-10.4) fL Neut % (Auto) % Lymph % (Auto) % Mcmullen % (Auto) % Eos % (Auto) % Baso % (Auto) % Neut # (Auto) (1.8-7.7) 10^3/u L Lymph # (Auto) (0.8-4.8) 10^3/u L Mcmullen # (Auto) (0.2-0.9) 10^3/u L Eos # (Auto) (0.0-0.8) 10^3/u L Baso # (Auto) (0.0-0.1) 10^3/u L Nucleated RBC % (a uto) % Nucleated RBCs # /100WBC PT (12.1-14.9) SECO NDS INR (0.8-1.2) APTT 31.4 192.0 H* D (23.9-36.7) SECO NDS Fibrinogen (174-498) mg/dL Sodium (136-145) mmol/L Potassium (3.5-5.1) mmol/L Chloride (98-107) mmol/L Carbon Dioxide (22-29) mmol/L Anion Gap (5-19) BUN (8-23) mg/dL Creatinine (0.5-0.9) mg/dL GFR Calculation (90-130) mL/min Glucose (65-115) mg/dL Calculated Osmolal ity (285-295) mOsm/k g Calcium (8.5-10.5) mg/dL Total Bilirubin (0.15-1.2) mg/dL AST (0-32) U/L ALT (0-33) U/L Alkaline Phosphata se (35-105) IU/L Total Protein (6.6-8.7) g/dL Albumin (3.5-5.2) g/dL Globulin (1.3-4.6) g/dL Urine Color (Yellow) Urine Appearance (CLEAR) Urine pH (5-7) Ur Specific Gravit y (1.005-1.030) Urine Protein (Negative) Urine Glucose (UA) (Normal) Urine Ketones (Negative) Urine Blood (Negative) Urine Nitrate (Negative) Urine Bilirubin (Negative) Urine Urobilinogen (Negative) mg/dL Ur Leukocyte Marybel ase (Negative) SARS-CoV-2 Ag (Rap id) Negative (Negative) 11/17/20 11/17/20 11/17/20 Range/Units 11:35 12:30 16:38 WBC (4.0-10.0) 10^3/ uL RBC (4.1-5.3) 10^6/u L Hgb (11.5-15.3) g/dL Hct (37.0-47.0) % MCV (81-99) fL MCH (28.0-34.0) pg MCHC (30.0-36.0) g/dL RDW (12.1-15.1) % Plt Count (130-400) 10^3/c mm MPV (7.4-10.4) fL Neut % (Auto) % Lymph % (Auto) % Mcmullen % (Auto) % Eos % (Auto) % Baso % (Auto) % Neut # (Auto) (1.8-7.7) 10^3/u L Lymph # (Auto) (0.8-4.8) 10^3/u L Mcmullen # (Auto) (0.2-0.9) 10^3/u L Eos # (Auto) (0.0-0.8) 10^3/u L Baso # (Auto) (0.0-0.1) 10^3/u L Nucleated RBC % (a uto) % Nucleated RBCs # /100WBC PT (12.1-14.9) SECO NDS INR (0.8-1.2) APTT Cancelled 31.9 D (23.9-36.7) SECO NDS Fibrinogen (174-498) mg/dL Sodium (136-145) mmol/L Potassium (3.5-5.1) mmol/L Chloride (98-107) mmol/L Carbon Dioxide (22-29) mmol/L Anion Gap (5-19) BUN (8-23) mg/dL Creatinine (0.5-0.9) mg/dL GFR Calculation (90-130) mL/min Glucose (65-115) mg/dL Calculated Osmolal ity (285-295) mOsm/k g Calcium (8.5-10.5) mg/dL Total Bilirubin (0.15-1.2) mg/dL AST (0-32) U/L ALT (0-33) U/L Alkaline Phosphata se (35-105) IU/L Total Protein (6.6-8.7) g/dL Albumin (3.5-5.2) g/dL Globulin (1.3-4.6) g/dL Urine Color Straw (Yellow) Urine Appearance Clear (CLEAR) Urine pH 6 (5-7) Ur Specific Gravit y 1.005 (1.005-1.030) Urine Protein Neg (Negative) Urine Glucose (UA) Norm (Normal) Urine Ketones Negative (Negative) Urine Blood Neg (Negative) Urine Nitrate Negative (Negative) Urine Bilirubin Neg (Negative) Urine Urobilinogen Norm (Negative) mg/dL Ur Leukocyte Marybel ase Negative (Negative) SARS-CoV-2 Ag (Rap id) (Negative) 11/17/20 Range/Units 16:54 WBC (4.0-10.0) 10^3/ uL RBC (4.1-5.3) 10^6/u L Hgb (11.5-15.3) g/dL Hct (37.0-47.0) % MCV (81-99) fL MCH (28.0-34.0) pg MCHC (30.0-36.0) g/dL RDW (12.1-15.1) % Plt Count (130-400) 10^3/c mm MPV (7.4-10.4) fL Neut % (Auto) % Lymph % (Auto) % Mcmullen % (Auto) % Eos % (Auto) % Baso % (Auto) % Neut # (Auto) (1.8-7.7) 10^3/u L Lymph # (Auto) (0.8-4.8) 10^3/u L Mcmullen # (Auto) (0.2-0.9) 10^3/u L Eos # (Auto) (0.0-0.8) 10^3/u L Baso # (Auto) (0.0-0.1) 10^3/u L Nucleated RBC % (a uto) % Nucleated RBCs # /100WBC PT (12.1-14.9) SECO NDS INR (0.8-1.2) APTT 29.8 (23.9-36.7) SECO NDS Fibrinogen (174-498) mg/dL Sodium (136-145) mmol/L Potassium (3.5-5.1) mmol/L Chloride (98-107) mmol/L Carbon Dioxide (22-29) mmol/L Anion Gap (5-19) BUN (8-23) mg/dL Creatinine (0.5-0.9) mg/dL GFR Calculation (90-130) mL/min Glucose (65-115) mg/dL Calculated Osmolal ity (285-295) mOsm/k g Calcium (8.5-10.5) mg/dL Total Bilirubin (0.15-1.2) mg/dL AST (0-32) U/L ALT (0-33) U/L Alkaline Phosphata se (35-105) IU/L Total Protein (6.6-8.7) g/dL Albumin (3.5-5.2) g/dL Globulin (1.3-4.6) g/dL Urine Color (Yellow) Urine Appearance (CLEAR) Urine pH (5-7) Ur Specific Gravit y (1.005-1.030) Urine Protein (Negative) Urine Glucose (UA) (Normal) Urine Ketones (Negative) Urine Blood (Negative) Urine Nitrate (Negative) Urine Bilirubin (Negative) Urine Urobilinogen (Negative) mg/dL Ur Leukocyte Marybel ase (Negative) SARS-CoV-2 Ag (Rap id) (Negative) Discharge Plan Discharge Patient Disposition: Xfer Other Clinical Impression: Acute internal jugular vein thrombosis, Subclavian vein occlusion Deep venous thrombosis of arm Qualifiers: Chronicity: acute Condition: Stable Referrals: Luis Manuel Jimenes DO [Primary Care Provider] - Sign Out Sign Out Data: Patient Sign Out occurred on 11/17/20 at 07:03. Patient's care was discussed, and care was transferred from to Garrison Linares DO. Coding Level of Care Code ED Gaming Department Head for Chg Fwd Exam Comprehensive
[2020-11-16 22:00] VITALS: BP 155/79; PULSE 90; RESP 18; O2SAT 97
[2020-11-16] MEDS: sodium chloride 0.9% 1,000 ML 100 ML IV (22:00)
--- NOTE | 2020-11-16 22:19 | CTR_ITS ---
PROCEDURE INFORMATION: Exam: CT Angiography Chest With Contrast Exam date and time: 11/16/2020 10:35 PM Age: 70 years old Clinical indication: Prior surgery; Surgery type: Gb. Appy. ; Patient HX: Positive for dvt. ; Additional info: Large dvt TECHNIQUE: Imaging protocol: Computed tomographic angiography of the chest with intravenous contrast. 3D rendering (Not supervised by radiologist): MIP and/or 3D reconstructed images were created by the technologist. Radiation optimization: All CT scans at this facility use at least one of these dose optimization techniques: automated exposure control; mA and/or kV adjustment per patient size (includes targeted exams where dose is matched to clinical indication); or iterative reconstruction. Contrast material: VISI 320; Contrast volume: 95 ml; Contrast route: INTRAVENOUS (IV); COMPARISON: CT angio chest PE protcl [id number] 10/05/2020 1:03 PM RADIATION DOSE METRICS: Total DLP (mGy-cm): 620.33 FINDINGS: Tubes, catheters and devices: The left chest port line tip is positioned in the upper SVC. Pulmonary arteries: The pulmonary arteries are adequately opacified for evaluation to the subsegmental level. There is no filling defect to suggest embolism. Aorta: The aorta is unremarkable. There is no aneurysm. Lungs: Lungs are clear. Pleural space: There is no pleural effusion or pneumothorax. Heart: Heart size is normal. There is no pericardial effusion. Lymph nodes: There is no mediastinal or hilar lymphadenopathy. Stomach and bowel: There is a multifocal ventral hernia in the upper abdomen containing a small portion of the nondistended transverse colon. Bones/joints: Bones are unremarkable. Soft tissues: Unremarkable. Other findings: There are multiple surgical clips in the upper abdomen. CT/CT angio chest 41322 IMPRESSION: 1. No pulmonary embolism. 2. Incidental findings above. Radiation Dose CTDIVOL = (mGy): DLP = 620.33 (mGy-cm)
[2020-11-16 22:34] LABS: Platelet Count 223 10^3/cmm (130-400)
[2020-11-16] MEDS: iodixanol 320 mg/mL 100mL Btl IV (22:58)
[2020-11-17 00:15] LABS: SARS Covid-2 Antigen Negative (Negative)
[2020-11-17] MEDS: heparin 5,000 unit/mL INJ 1 mL 4000 UNIT IVP (01:44)
[2020-11-17] MEDS: heparin drip 25,000 UNIT/500 ML PREMIX 25.4 UNIT IV (01:52)
[2020-11-17 02:00] VITALS: BP 165/71; PULSE 69; RESP 18; O2SAT 99
[2020-11-17 06:00] VITALS: BP 158/68; PULSE 81; RESP 18; O2SAT 99
[2020-11-17] MEDS: sodium chloride 0.9% 1,000 ML 100 ML IV (06:12)
[2020-11-17] MEDS: acetaminophen 500 mg Tablet 1000 MG PO (09:28)
[2020-11-17 10:36] VITALS: BP 124/108; PULSE 67; RESP 13; O2SAT 96
[2020-11-17 13:15] LABS: Partial Thromboplastin Time 31.9 SECONDS (23.9-36.7)
[2020-11-17 16:42] LABS: Add Urine Microscopic? NO
[2020-11-17 16:46] LABS: Bilirubin Urine Neg (Negative); Blood Urine Neg (Negative); Glucose Urine UA Norm (Normal); Ketones Urine Negative (Negative); Leukocyte Esterase Urine Negative (Negative); Nitrate Urine Negative (Negative); Protein Urine Neg (Negative); Specific Gravity, Urine 1.005 (1.005-1.030); Urine Appearance Clear (CLEAR); Urine Color Straw (Yellow); Urobilinogen Urine Norm (Negative); pH Urine 6 (5-7)
[2020-11-17 16:53] VITALS: RESP 18; O2SAT 100
[2020-11-17] MEDS: fentaNYL 50 mcg/mL INJ 2mL IVP (16:53)
[2020-11-17 17:13] LABS: Partial Thromboplastin Time 29.8 SECONDS (23.9-36.7)
[2020-11-17 18:35] VITALS: BP 166/61; PULSE 72; RESP 18; O2SAT 95
== END 2020-11-17 18:02 | disposition other institution (70) ==
PROVIDERS: Emergency Medicine; Emergency Provider Family Medicine; PCP Electrodiagnostic Medicine
DX: I82.C12 Acute embolism and thrombosis of left internal jugular vein (principal); I82.B12 Acute embolism and thrombosis of left subclavian vein; I82.622 Acute embolism and thrombosis of deep veins of left upper extremity; I10 Essential (primary) hypertension; Z86.711 Personal history of pulmonary embolism
CPT/HCPCS: 12345; 36415; 71275; 80053; 81003; 85025; 85049; 85384; 85610; 85730; 87426; 93971; 96365; 96366; 96367; 96375; 99283; 99285; J1644; J3010; J7030; Q9967

== ENCOUNTER 2020-12-06 12:34 | Outpatient (CLI) | payer MEDICARE, SELFPAY ==
[2020-12-06 13:34] LABS: Basophils # 0.2 10^3/uL (0.0-0.1); Basophils % 2.4 %; Eosinophils # 0.1 10^3/uL (0.0-0.8); Eosinophils % 0.9 %; Hematocrit 37.8 % (37.0-47.0); Hemoglobin 11.8 g/dL (11.5-15.3); Lymphocytes # 2.2 10^3/uL (0.8-4.8); Lymphocytes % 34.2 %; Mean Corpuscular HGB Conc 31.2 g/dL (30.0-36.0); Mean Corpuscular Hemoglobin 28.4 pg (28.0-34.0); Mean Corpuscular Volume 90.9 fL (81-99); Mean Platelet Volume 12.1 fL (7.4-10.4); Monocytes # 0.7 10^3/uL (0.2-0.9); Monocytes % 10.4 %; Neutrophils # 3.29 10^3/uL (1.8-7.7); Neutrophils % 51.9 %; Nucleated Red Blood Cells % 0 %; Platelet Count 288 10^3/cmm (130-400); Red Blood Count 4.16 10^6/uL (4.1-5.3); Red Cell Distribution Width 16.6 % (12.1-15.1); White Blood Count 6.3 10^3/uL (4.0-10.0)
[2020-12-06 14:05] LABS: Alanine Aminotransferase 27 U/L (0-33); Albumin Level 3.5 g/dL (3.5-5.2); Alkaline Phosphatase 90 IU/L (35-105); Anion Gap 13.1 (5-19); Aspartate Amino Transferase 46 U/L (0-32); Blood Urea Nitrogen 9 mg/dL (8-23); Calcium 9.1 mg/dL (8.5-10.5); Carbon Dioxide 27 mmol/L (22-29); Chloride 105 mmol/L (98-107); Globulin 2.1 g/dL (1.3-4.6); Glucose 94 mg/dL (65-115); Immunoglobulin IGG 451 mg/dL (700-1600); Osmolality Calculated 290 mOsm/kg (285-295); Potassium 4.1 mmol/L (3.5-5.1); Sodium 141 mmol/L (136-145); Total Bilirubin 0.2 mg/dL (0.15-1.2); Total Protein 5.6 g/dL (6.6-8.7)
[2020-12-06 14:23] LABS: Immunoglobulin IGA 27 mg/dL (70-400); Immunoglobulin IGM 14 mg/dL (40-230)
[2020-12-07 08:33] LABS: PROTEIN, TOTAL 5.5 g/dL (6.1-8.1)
[2020-12-07 16:18] LABS: ABNORMAL PROTEIN BAND 1 0.2 g/dL (NONE DETECTED); ALBUMIN 3.4 g/dL (3.8-4.8); ALPHA 1 GLOBULIN 0.3 g/dL (0.2-0.3); ALPHA 2 GLOBULIN 0.8 g/dL (0.5-0.9); BETA 1 GLOBULIN 0.4 g/dL (0.4-0.6); BETA 2 GLOBULIN 0.2 g/dL (0.2-0.5); GAMMA GLOBULIN 0.5 g/dL (0.8-1.7); KAPPA LIGHT CHAIN, FREE, SERUM 16.2 mg/L (3.3-19.4); LAMBDA LIGHT CHAIN, FREE, SERU 40.6 mg/L (5.7-26.3)
== END 2020-12-06 12:35 | disposition home or self-care (01) ==
LOC: ONCMED 12:36
PROVIDERS: PCP Electrodiagnostic Medicine; Visit Provider Internal Medicine Medical Oncology
DX: C90.00 Multiple myeloma not having achieved remission (principal)
CPT/HCPCS: 36591; 80053; 82784; 83883; 84155; 84165; 85025

== ENCOUNTER 2020-12-06 14:05 | Outpatient (CLI) | payer MEDICARE, SELFPAY | END 2020-12-06 14:06 | disposition home or self-care (01) | LOC: WOUND 14:07 | PROVIDERS: PCP Electrodiagnostic Medicine; Visit Provider Thoracic Surgery (Cardiothoracic Vascular Surgery) | DX: L98.492 Non-pressure chronic ulcer of skin of other sites with fat layer exposed (principal) | CPT/HCPCS: 11042; 99212 ==

== ENCOUNTER 2020-12-11 05:53 | Outpatient (CLI) | payer MEDICARE, SELFPAY ==
--- NOTE | 2020-12-11 20:59 | ONC FU_ITS ---
[facility] Patient Note Patient: Valentin Clark Unit #: [id number]: [id number] Dictated By: Sue PatelDate of Visit: Dec 11, 2020 Onc MED Follow-Up/Prog Note Chief Complaint: Multiple myeloma. 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 In March 2018 she had bumped her head at work and in the process of that she became aware of a small lump, though it was actually in a slightly different area. She then noticed that the lump was getting larger. Evaluation with head MRI on 06/07/2018 showed evidence of a right parietal occipital extra-axial neoplasm, felt to be most likely meningeal in origin. It was noted to exert mass effect on the right parietal and occipital lobes, but without associated midline shift or white matter parenchymal edema. The lesion was noted to invade through the calvarium and into the subcutaneous parietal occipital scalp soft tissues. The mass measured 5.7 x 3.5 x 6 cm. 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 The area of occlusion was noted to extend over approximately 4.3 cm. She was seen by Dr. Landry and subsequently referred for neurosurgery evaluation at [facility]. Initially they had considered possible surgical resection. Her further evaluation there apparently included laboratory findings which were suspicious for myeloma, and it was recommended that she have treatment with radiation. She was seen here for further management on 07/14/2018. She then returned to Dr. Landry, and on 07/20/2018 she underwent open biopsy/resection of the extracranial extent of the mass. 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 Her further evaluation included protein electrophoresis which showed an IgG lambda monoclonal protein in the serum quantitating at 0.48 g/dL. The serum free light chain assay showed elevated lambda light chain at 374.65 mg/L with decreased kappa/lambda ratio at 0.06. The 24-hour urine protein electrophoresis showed no monoclonal protein. There were no other areas of lytic bone involvement noted on her skeletal survey. Bone marrow aspiration/biopsy on 07/30/2018 showed a monotypic plasma cell population, but it comprised only 2% of the total cellularity. A FISH panel for myeloma was unrevealing, and the standard chromosome analysis was normal. She was referred to Dr. Kaur, and she began radiation to the lesion on 07/30/2018. She completed treatment on 09/02/2018 to a total dose of 5,000 cGy. She had evaluation with CT pulmonary angiogram on 09/14/2018. It showed moderate bilateral pulmonary embolic burden. She began on anticoagulation with apixaban. During her subsequent follow-up she continued to have an open wound at the site of the plasmacytoma in the parietal-occipital scalp region. As of her follow-up visit on 10/19/2018 her M protein was stable 0.37 g/dL. In the absence of any evidence of symptomatic myeloma, she had otherwise just continued on observation/expectant management. However, due to her persistent scalp wound she had a repeat brain MRI on 01/11/2019. It showed evidence of residual neoplastic process at the resection site. There was associated dural involvement but with improved signal characteristics and decreased enhancement compared to the study from September 2018. She was seen for a follow-up visit on 01/20/2019. In view of the MRI findings, she had further evaluation with PET/CT on 02/03/2019. It showed increase in size and expansile hypermetabolic lesion within the left ilium with extension of hypermetabolic tumor into the adjacent left iliac muscle. There was a new hypermetabolic lytic process within the right S1/S2 region. A large lytic mass within the posterior calvarium did not appear to have active hypermetabolism. Also noted, though, was a hypermetabolic lesion within the medullary canal of the distal left femoral diametaphysis and an additional hypermetabolic focus in the anterior cortex of the distal right femur concerning for additional areas of myeloma. In the setting of obvious progression of her myeloma, she was recommended to begin a trial of therapy with Velcade/Revlimid/dexamethasone. Her other medical illnesses include hypertension and degenerative arthritis/degenerative disease of the spine. She has associated cervical and lumbar spinal stenosis. She has a history of endometriosis, and she has anxiety/depression. She is a nonsmoker. INTERIM HISTORY: She began cycle 1 of VRd on 02/23/2019. At that time she also received an infusion of IV Zometa for the lytic bone involvement. At that time, there was a slight increase in her baseline creatinine level to 1.2 mg/dL, and it was opted to reduce her Revlimid dosage because of that. She experienced significant toxicity following her day 1 treatment, mainly having become listless and out of it over the next 4-5 days. She also lost her appetite. Her follow-up lab studies showed a drop in her calcium from baseline 10.3 mg/dL to 6.5 mg/dL with albumin 3.5 g/dL. With that finding, Dr Rodriguez did opt to hold her further Velcade, but she continued Revlimid and dexamethasone. As of 03/09/2019 she restarted treatment with Velcade at 1.3 mg/m??? weekly with Revlimid reduced to 15 mg daily on a 21/28 day schedule and the dexamethasone dosage reduced to 20 mg weekly. As of her day 15 visit, she was tolerating the treatment well. At that time she received the full dosage of Velcade, and she continued Revlimid 15 mg daily for 7 more days. She had subsequently developed diarrhea, and at her followup visit on 04/07/2019 her treatment was put on hold. She eventually continued with cycle 3 on 05/05/2019 with the Revlimid dosage further reduced to 10 mg daily on a 21/28 day schedule and with the Velcade and dexamethasone dosed weekly. Her repeat SPEP at that time showed residual M protein quantitating at 0.3 g/dL. The free light chain assay showed kappa light chain 100 mg/L, lambda light chain 122 mg/L, and kappa/lambda ratio 0.82. Her treatment was put on hold again at day 8 due to worsening neuropathy. She subsequently was able to continue the Revlimid and dexamethasone, but the Velcade remained on hold. Her repeat protein electrophoresis on 06/09/2019 showed stable M protein at 0.3 g/dL. The serum free light chain assay showed normal kappa/lambda ratio at 0.84. She was seen for a follow-up visit on 06/21/2019. At that point she appeared stable clinically. Her blood counts were adequate, and she continued with her 4th cycle of treatment. Her repeat protein electrophoresis on 07/13/2019 showed residual M protein quantitating at 0.2 g/dL. The free light chain assay showed elevated kappa light chain at 31.0 mg/L and elevated lambda light chain at 33.0 mg/L with normal kappa/lambda ratio at 0.94. Her 24-hour urine protein electrophoresis showed no detectable monoclonal protein. She was seen for a follow-up visit on 07/19/2019. At that point she complained of increased fatigue and excessive somnolence, and I did opt to put her treatment on hold. A subsequent restaging PET/CT showed no FDG avid sites of involvement. Her repeat head MRI on 08/10/2019 showed no evidence of recurrent or progressive disease. With those findings, I opted to transition her treatment to maintenance Revlimid at 5 mg daily, which she started following her visit on 08/17/2019. Her further laboratory studies on 09/22/2019 also showed a low B12 level at 189 pg/mL, and she subsequently started B12 replacement therapy. A sleep study in October 2019 showed moderate obstructive sleep apnea. At her follow-up visit on 11/28/2019 she was still mildly anemic, and transferrin saturation was still low at 17% despite being on oral iron replacement. As such, she was then given parenteral iron replacement with infusions of Injectafer on 11/28/2019 and on 12/05/2019. With the 11/28 visit she also was given denosumab 120 mg by subcutaneous injection for the lytic bone involvement. On 12/06/2019 she was admitted to the hospital with symptomatic hypocalcemia, serum calcium 5.9 mg/dL with albumin 2.9 g/dL. Renal function was stable with creatinine 1.0 mg/dL, but her potassium also was low at 3.2 mmol/L. She was given IV calcium and potassium replacement. She then continued further IV replacement as an outpatient. Despite that she was readmitted to the hospital with hypocalcemia on 12/15/2019. She was discharged home on 12/23/2019. Her evaluation included CT pulmonary angiogram which showed no evidence of pulmonary embolism. There was evidence of cardiomegaly, a small pericardial effusion, and small bilateral pleural effusions. Echocardiogram showed small, hemodynamically insignificant pericardial effusion and normal left ventricular function. She then returned here on 12/27/2019 and she has since then continued IV fluid and electrolyte replacement, daily for the first week and then on Mondays, Wednesdays, and Fridays. Despite that, she continued to feel weak and shaky, and she had ongoing complaints of nausea and anorexia. She continued to require IV fluid and electrolyte replacement but she did show gradual recovery. Her further treatment remained on hold. Repeat protein electrophoresis on 01/16/2020 showed stable M protein at 0.4 g/dL. The serum free light chain assay showed elevated free lambda light chain at 254 mg/L with decreased kappa/lambda ratio at 0.16. There was no monoclonal protein identified in the 24-hour urine protein electrophoresis. Restaging PET/CT on 02/24/2020 showed findings concerning for disease progression with new areas of marrow hypermetabolism within the right proximal humerus and within the bilateral distal femoral diametaphysis. The existing areas of involvement within the left ilium and sacrum showed further decrease in FDG uptake. With those findings, Dr Rodriguez had recommended that she proceed to second line treatment with daratumumab/dexamethasone. She was scheduled to come in last week for her initial infusion of daratumumab, but the treatment was deferred when she developed low-grade fever and other acute symptoms. She eventually was able to begin her initial infusion of daratumumab on 03/21/2020. Her repeat free light chain assay prior to that showed further increase in the lambda light chain to 537 mg/L with kappa/lambda ratio 0.06. She tolerated the daratumumab with no adverse effects, and she then continued treatment weekly. On 05/03/2020 she underwent EGD and colonoscopy by Dr. Jimenes. The EGD showed no significant abnormal findings, and the colonoscopy showed just 2 small polyps in the rectum. 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 As of 05/09/2020 she had completed her 8th infusion on the weekly schedule, and as of 05/16/2020 she received her 1st of 8 planned infusions at the 2-week interval. Her M protein at that point was stable at 0.4 g/dL. The free light chain assay showed a decrease in the free lambda light chain from 537.42 205.2 mg/L. However, her repeat head MRI on 06/05/2020 showed significant progression of the myelomatous lesions within the skull compared to the study from January 2020. Numerous calvarial lesions were now present, the largest in the right parietal bone measuring 2.2 cm. The postoperative resection site in the posterior right parietal lobe showed significantly more enhancement with slightly more dural enhancement, also suspicious for progression of neoplastic changes. With that finding, she had continued the daratumumab and dexamethasone, but beginning on 06/27/2020 she added pomalidomide at a reduced dosage of 2 mg daily on a -day schedule. Her repeat PET/CT on 07/12/2020 showed a large lytic lesion within the posterior right calvarium, but without associated hypermetabolism. There were no new lesions identified within the calvarium. There was persistent hypermetabolism noted within the proximal right humerus, SUV 3.6, and there was new hypermetabolism within the marrow of the proximal left humerus, SUV 3.6. There was decrease in FDG uptake within the medial left ilium. There was persistent hypermetabolism noted in the right femoral diametaphysis and in the distal left femoral diametaphysis. There was new hypermetabolism noted in the proximal left tibia. Overall the findings were concerning for disease progression. On 08/29/2020 she began a trial of salvage therapy with belantamab [id number]. She did complete 2 cycles of the Blenrep-lst treatment on 09/19/2020. She was diagnosed as Covid positive on 09/23/2020. Her treatment has been delayed due to to the Covid diagnosis. She did not require hospitalization. She was diagnosed with DVT in the left internal jugular, left subclavian and innominate vessels on 11/12/2020. She was seen back in the ER @ [facility] on 11/17/2020 for increased swelling. She ultimately had angioplasty/stenting and thrombectomy at [facility] on November 22, 2020. After her Covid diagnosis she was diagnosed with a rash of unknown etiology. It is highly suspect that this was due to the Covid as it was the morbilliform rash. She did see Dr. Dixon on 10-18-2020 and dermatology and a skin punch biopsy was obtained. The diagnostic interpretation read interface in perivascular dermatitis???the histological findings are not entirely specific with the most consistent with a viral exanthem. A drug eruption cannot be entirely excluded but is less favored given the absence of significant dermal eosinophilia . Ms. Clark is here today for follow-up. She states she feels great. She has decreased her medications per Dr. Jimenes's instructions given that there was concerned that the post Covid rash was drug related. She states she is not sure if being off the medication has made her feel better or fixing the blood clots has made her feel better. She states overall she feels better than she has in quite some time. She denies any pain. She denies any shortness of breath orthopnea. She has had no fever or chills. She denies any cough or shortness of breath. She denies any bowel or bladder complaints. She denies any neuropathy. She continues to have the scalp wound and continues to follow with wound care/Dr. Patel for this. She states is starting to show new tissue . She denies any mouth sores, sore throat or difficulty swallowing. Her appetite is good and her energy is good. Her ECOG is 0. CHEMOTHERAPY TREATMENT HISTORY 1. 07/20/2018 open biopsy/resection of extracranial extent of extra axial space plasmacytoma of the right parietal/occipital region. 2. 07/30/2018 she began radiation and completed on 09/02/2018 to a total dose of 5000 cGy 3. 02/23/2019 Velcade Revlimid dexamethasone Velcade was placed on hold but she continue Revlimid and was able to resume Velcade at 1.3 mg per metered squared with Revlimid at 15 mg daily on 03/09/2019. On 04/07/2019 her treatment was put on hold due to diarrhea and poor performance status 4. 02/23/2019 IV Zometa for lytic bone involvement???hypocalcemia baseline calcium 10.3 after Zometa at 6.5 and she was symptomatic 5. 05/05/2019 Revlimid 10 mg daily continued with Velcade dexamethasone treatment was placed on hold on 05/13/2019 due to worsening neuropathy. She was able to resume the Revlimid and dexamethasone with the Velcade remained on hold. She continued with the Revlimid dexamethasone until 07/19/2019 at which point she had increased fatigue excessive somnolence and her treatment was placed on hold again. Follow-up PET CT and MRI showed no evidence of recurrent or progressive disease and what that finding she was placed on maintenance Revlimid at 5 mg daily which started on 08/17/2019. 6. 11/28/2019 she became mildly anemic and iron levels were low so she did have replacement with Injectafer on 11/28/2019 and 12/05/2019. 7. On 11/28/2012 she was also given dose of denosumab for the lytic bone involvement. She was admitted to the hospital with symptomatic hypocalcemia with a serum calcium of 5.9 albumin 2.9. Her renal function was stable at 1.0 on her creatinine. She did receive IV calcium and potassium replacement and continued this as outpatient but despite that was readmitted with recurrent hypocalcemia on 12/15/2019. Her treatment remained on hold. 8. Daratumumab began on 03/21/[address] on 02/24/2020 showed findings concerning for disease progression and new areas of marrow hypermetabolism within the right proximal humerus and within the bilateral distal femoral diametaphysis. Her lambda light chain was 537 mg/L at that time. 9. 06/27/2020 pomalidomide 2 mg daily 21/ days added to the daratumumab for evidence of disease progression on 06/05/2020 MRI of the head???myelomatoud lesions within the skull had increased and there were numerous calvarial lesions were present largest in the right parietal bone measuring 2.2 cm. 10. 08/19/2020 belantamab [id number]. Placed on hold after 09/19/2020 treatment due CODIV 19 + and abnormal opthalmic eye exam (10/15/2020 moderate superifical keratopathy both eyes/grade 2). Repeat ophthalmologic exam on 11/06/2020 reported mild superficial keratopathy both eyes that was graded as grade 1 which was improved from the September assessment. Past Medical History: Anxiety/depression Cervical stenosis Degenerative arthritis Degenerative disease of the spine Depression Endometriosis Hypertension Lumbar stenosis DVT LEFT INTERNAL JUGLAR, LEFT SUBCLAVIAN in 2019 COVID 19 + in 2019 Past Surgical History: Bilateral cataract excisions Cholecystectomy/gastric stapling Removal of ovarian cyst x 2 Tonsillectomy Angioplasty/stenting of the L innominate vein in 2020 Endovascular revascularization of left upper extremity veins and central veins-[facility] in 2020 Percutaneous mechanical thrombectomy of the L subclavian vein-[facility] in 2020 Left subclavian venous access device???Dr. Soriano[facility] in 2019 Allergies: BusPIRone HCl, Codeine and Related, Levaquin, and Morphine Derivatives. Medications: Acetaminophen 2 Tablet (of 500 mg) Oral PRN Bisacodyl 1 Tablet (of 5 mg) Tablet, enteric coated Oral daily Eliquis 1 Tablet (of 5 mg) Oral b.i.d. FLUoxetine HCl 1 Tablet (of 10 mg) Oral daily FLUoxetine HCl 1 Capsule (of 20 mg) Oral daily Metoprolol Tartrate 0.5 Tablet (of 25 mg) Oral b.i.d. Plavix 1 Tablet (of 75 mg) Oral daily Family History: Ms. Clark's mother at age 84: emphysema, and congestive heart failure. Ms. Clark's father at age 53: heart disease, and myocardial infarction. Ms. Clark has 2 brothers: 1 alive, 1 . Ms. Clark's first brother's colon cancer, and type ii diabetes. Another brother's colon cancer. She has 2 sisters: 2 alive. Ms. Clark's first sister's herat disease, and type ii diabetes. Father of heart attack age 51. Mother with emphysema at age 78. She also had heart disease and diabetes. A sister has diabetes and heart disease. A brother has diabetes and he has been treated for colon cancer. A maternal uncle also had colon cancer, and a maternal aunt had breast cancer. 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 Ms. Clark has never smoked. She drinks occasionally. She is a nonsmoker. She has had just rare alcohol use. Review Of Symptoms: Constitutional Denies fevers, chills, night sweats. Allergic/Immunologic No reactions. Eyes Denies significant visual changes. No diplopia. No amaurosis. ENMT Denies changes in hearing, sore throat, mouth sores, difficulty or changes in swallowing ability, and/or sinus drainage. Hematologic/Lymphatic Denies easy bruising or bleeding. The patient denies any tender or palpable lymph nodes. Respiratory Denies any new dyspnea on exertion, chest pain, cough or hemoptysis. Denies orthopnea. Cardiovascular Denies anginal chest pain, palpitations or orthopnea. Gastrointestinal Denies nausea, vomiting, GI bleeding, or constipation. Genitourinary (F) No hematuria, hesitancy, incontinence, vaginal bleeding, discharge or other problems with urination. Musculoskeletal Denies joint pain, swelling or redness. No decreased range of motion. Integumentary Denies chronic rashes, inflammation, ulcerations or skin changes. Neurologic Denies headache, blurred vision, and no areas of focal weakness or numbness. Normal gait. No sensory problems. Psychiatric Denies insomnia, depression, olivia or mood swings. Vital Signs: Performed on Dec 11, 2020 10:07 Height - 63.50 in Weight - 199.2 lbs (HIGH) BSA - 1.94 sq.m BMI - 34.73 (HIGH) Temperature - 96.7 F (LOW) Pulse - 71 /min Respiration - 18 /min BP - 166/82 mm(hg) (HIGH) O2 Sat - 98 % Pain - 0,0 - Fully active, able to carry on all predisease activities without restrictions. (ECOG) Physical Examination: Constitutional Alert, oriented, no acute distress. Skin pink, warm and dry. Head Normocephalic; atraumatic. Posterior scalp wound is healing well without exudate or redness. It remains open-covered with dressing. Eyes Conjunctivae and sclerae are clear and without icterus. Pupils are reactive and equal. Neck Supple without masses or thyromegaly. No jugular venous distension. Hematologic/Lymphatic No petechiae or purpura. No tender or palpable lymph nodes in the cervical or supraclavicular areas. Respiratory Lungs are clear to auscultation without rhonchi or wheezing. Cardiovascular Regular rate and rhythm of heart without murmurs,clicks, gallops or rubs. Chest left sided port-unremarkable. Back/Spine Non-tender to palpation. Extremities No visible deformities, no cyanosis, clubbing or edema. Musculoskeletal No tenderness or swelling. Integumentary No rashes or lesions. Neurologic No sensory or motor deficits, normal cerebellar function, normal-slow gait. Psychiatric Alert and oriented times three. Coherent speech. Verbalizes understanding of our discussions today. Laboratory:Test performed on Dec 06, 2020 13:10 Sodium 141 mmol/L Potassium 4.1 mmol/L Chloride 105 mmol/L CO2 27 mmol/L Anion Gap 13.1 BUN 9 mg/dL Creatinine 0.7 mg/dL Cr Clearance (Est) 105.0500 mL/min eGFR 83.0 mL/min Glucose 94 mg/dL Osmolality - Calculated 290 mOsm/kg Calcium 9.1 mg/dL Protein, Total 5.6 g/dL Albumin 3.5 g/dL Globulin 2.1 g/dL Bilirubin, Total 0.2 mg/dL ALT (SGPT) 27 U/L AST (SGOT) 46 U/L Alkaline Phosphatase 90 IU/L WBC 6.3 10 3/uL RBC 4.16 10 6/uL HGB 11.8 g/dL HCT 37.8 % MCV 90.9 fL MCH 28.4 pg MCHC 31.2 g/dL RDW 16.6 % Platelet Count 288 10 3/cmm MPV 12.1 fL Neutrophils 3.29 10 3/uL Lymphocytes 2.2 10 3/uL Monocytes 0.7 10 3/uL Eosinophils 0.1 10 3/uL Basophils 0.2 10 3/uL Neutrophil % 51.9 % Lymphocyte % 34.2 % Monocyte % 10.4 % Eosinophil % 0.9 % Basophils % 2.4 % NRBC % 0 % IgG 451 mg/dL [place] Free Light Chains 16.2 mg/L Lambda Free Light Chains 40.6 mg/L IgA 27 mg/dL [place]/Lambda Free Ratio 0.40 IgM 14 mg/dL Test performed on Jul 25, 2020 10:18 Ua Color Yellow Ua Appearance Clear Ua Glucose Norm Ua Bilirubin Neg Ua Ketones Negative Ua Specific [place] 1.015 Ua Blood Neg Ua pH 5.0 Ua Protein Neg Ua Nitrites Negative Ua Leukocyte Esterase Negative Urine Culture <5,000 COLS/ML MIXED SUPERFICIAL MIN ON DAY 2. PROBABLE CONTAMINANTS. Test performed on Jul 11, 2020 09:50 Ua Micro: WBC NONE /hpf Ua Micro: RBC 0-4 /hpf Ua Micro: Squam Epith Cells 0-4 Ua Micro: Bacteria TRACE Test performed on Jun 26, 2020 10:02 Magnesium 1.7 mg/dL Impression: 1. 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 She underwent resection/open biopsy of the extracranial portion of the mass on 07/20/2018. 2. She then underwent radiation, completed on 09/02/2018 to a total dose of 5000 cGy. 3. She has persistent open wound at the biopsy site. 4. She had associated IgG lambda monoclonal protein in the serum and 2% monoclonal plasma cells in the bone marrow, consistent with underlying myeloma. Initially it appeared to otherwise not be symptomatic. 5. She was found to have pulmonary emboli by CT pulmonary angiogram on 09/14/2018. She began anticoagulation with apixaban. Her other medical illnesses include: 6. Degenerative arthritis and degenerative disease of the spine with associated cervical and lumbar spinal stenosis. 7. Hypertension. 8. Endometriosis. 9. Anxiety/depression. 10. COVID + 09/2020 11. DVT Left internal jugular, left subclavian and innominate vessels on 11/12/2020. She had repeat imaging on November 17, 2020 and was felt that there was extension of the occlusive thrombus to the left subclavian and internal jugular veins and some dilatation of the thrombus itself. She was then transferred to [facility] in [place] for further evaluation as we do not have vascular services available at [facility]. She underwent endovascular revascularization of the left upper extremity veins and central veins. She had a venogram of the left subclavian and innominate veins and superior vena cava with recanalization of the left innominate vein and dilatation. Angioplasty and stenting of the left innominate vein and percutaneous mechanical thrombectomy of the left subclavian vein on November 22, 2020. She remains on Eliquis 5 mg twice daily and Plavix 75 mg daily. During subsequent followup she had increasing pain in the left hip/buttock area. Her repeat protein electrophoresis studies showed only a slight increase in her M protein, but her repeat PET/CT on 02/03/2019 showed significant progression of lytic bone involvement in the left ilium. There was also possible involvement in the distal right femur. The area of lytic involvement in the calvarium was not metabolically active. On 02/23/2019 she began cycle 1 of Velcade/Revlimid/dexamethasone. She also was given an infusion of Zometa for the lytic bone involvement. 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 Her Velcade was put on hold. She stopped the Revlimid and dexamethasone as of 03/02/2019. At that point she was still having significant pain associated with the lytic bone involvement in the left ileum. During subsequent follow-up, the hypocalcemia improved. As of 03/09/2019 she was able to restart treatment with dose reductions in the Revlimid and dexamethasone. She had remained mildly anemic, but that appeared to be due to iron deficiency. As of her cycle 2 day 15 visit, she appeared to be doing well, and she continued to her treatment as scheduled. Subsequent to that visit, she developed severe diarrhea, and her treatment was put on hold. She continued with cycle 3 on 05/05/2019. She was given a further reduction in the Revlimid dosage to 10 mg daily on a day schedue with the Velcade and dexamethasone dosed weekly. Her treatment was put on hold at day 8 due to worsening neuropathy. She subsequently was able to continue treatment with Revlimid/dexamethasone, but the Velcade remained on hold. She then continued with cycle 4 on 06/21/2019. As of her follow-up visit on 07/19/2019 her treatment was put on hold due to multiple complaints, the most significant being increased fatigue and excessive somnolence. A subsequent restaging PET/CT showed no active sites of involvement. She continued, though, to have severe fatigue/somnolence despite adjustments in her medication regimen. She also continued to have significant musculoskeletal pain, and she had a persistent open wound in the area of the vertex of her scalp. Her repeat head MRI on 08/10/2019 showed no evidence of recurrent or progressive disease. With those findings, her treatment was transitioned to maintenance Revlimid at 5 mg daily, which she started following her visit on 08/17/2019. As of her followup visit on 11/28/2019 she appeared to be tolerating the maintenance Revlimid with acceptable toxicity, and there had been no obvious progression of the myeloma. During that time she was found to have B12 deficiency, and she had been showing some improvement with B12 replacement. However, at that point she still had mild anemia, and her transferrin saturation and ferritin levels were consistent with iron deficiency despite the fact that she had been on oral iron supplementation. She was given parenteral iron replacement with 2 infusions of Injectafer. She also was given denosumab 120 mg by ssubcutaneous injection for the lytic bone involvement. On 12/06/2019 she was admitted to the hospital with symptomatic hypocalcemia. She also had hypokalemia and hypophosphatemia. It was uncertain to what extent those abnormalities were due to the Injectafer, to the denosumab, or both. However, she continued to have persistent symptomatic hypocalemia and hypophosphatemia despite having both IV or oral replacement, and she required hospital admission again on 12/15/2019. During this time there was a significant in her performance status. She also developed shortness of breath and hypoxia. A specific cause for that was not determined. Following her hospitalization she continued outpatient IV fluid and electrolyte replacement along with oral calcium and vitamin D supplements. However, she did show gradual recovery with resolution of the hypocalcemia/hypophosphatemia and she also had gradual improvement in her performance status. Her protein electrophoresis studies in January did show evidence of progression of her myeloma with increasing free lambda light chain and her restaging PET/CT in February also showed findings suspicious for disease progression. She did not appear to be overtly symptomatic, but with evidence of disease progression, she was recommended to begin second line treatment with daratumumab/dexamethasone. Her treatment was delayed after she developed fever and other symptoms, but she eventually did start treatment with daratumumab/dexamethasone on 03/21/2020. Her repeat free light chain assay prior to that had shown further increase in the free lambda light chain to 537 mg/L with kappa/lambda ratio 0.06. She tolerated the initial daratumumab infusion with no adverse effects, and she was then able to continue treatment weekly. As of 05/09/2020 she completed the 8th infusion on the weekly schedule, and as of 05/16/2020 she began her 1st of 8 planned infusions at 2-week intervals. At that point the free light chain assay had shown a significant decrease in the free lambda light chain, to 205 mg/L. Overall, she had been showing very gradual improvement in her clinical status, though she continued to have multiple complaints. Unfortunately her repeat head MRI in May showed significant worsening of calvarial lesions, consistent with disease progression. She continued the daratumumab and dexamethasone with addition of pomalidomide beginning on 06/27/2020. She completed 1 cycle, but even with the pomalidomide administered at a reduced dosage, she had significant [employer] SUPER[employer]OR side effects. Her repeat PET/CT on 07/12/2020 showed a large lytic lesion within the posterior right calvarium, but without associated hypermetabolism. There were no new lesions identified within the calvarium. There was persistent hypermetabolism noted within the proximal right humerus, SUV 3.6, and there was new hypermetabolism within the marrow of the proximal left humerus, SUV 3.6. There was decrease in FDG uptake within the medial left ilium. There was persistent hypermetabolism noted in the right femoral diametaphysis and in the distal left femoral diametaphysis. There was new hypermetabolism noted in the proximal left tibia. Overall the findings were concerning for disease progression. On 08/29/2020 she began a trial of salvage therapy with belantamab [id number]. She tolerated the initial infusion without acute toxicity, and initially she felt good generally. However, she developed significant pain in the left sciatic distribution and now with similar pain on the right side. In addition, she developed symptoms of respiratory tract infection. She was able to complete 2 cycles but then was diagnosed with COVID-19 although she did not require hospitalization. She has not resumed the belantamab as she was diagnosed with DVT of the left upper extremity/left IJ, left subclavian and innominate vessels. On November 22, 2020 she had venogram imaging of the left subclavian and innominate veins and superior vena cava with recanalization of the left and innominate vein and dilatation. Angioplasty and stenting of the left innominate vein and percutaneous mechanical thrombectomy of the left subclavian vein. This was performed at [facility]. Ms. Clark presents today for reevaluation and consideration of resuming her Blenrep (belantamab [id number]). Plan: PROBLEMS ADDRESSED TODAY 1. Plasmacytoma, IgG lambda myeloma A. She has been off of myeloma treatment since 09/19/2020 for multiple reasons including Covid positive and DVT left upper extremity requiring revascularization of the left innominate vein and manual thrombectomy of the left subclavicular vein. B. Labs from December 06, 2020 were reviewed in detail and discussed with Ms. Clark and a copy was given to her. Her WBC was 6.3, hemoglobin 11.8, platelets 288,000 ANC 3300. Potassium 4.1 creatinine 0.7 LFTs are normal IgG4 51 IgM 14 and IgA was 27. Her lambda light chain was reported at 40.6 with a kappa/lambda ratio of 0.4. Her lambda light chain on 09/17/2020 was 83.6 and the kappa lambda ratio was 0.25 as her kappa light at that time was reported at 21.2 and it was 16.2 on 12/06/2020. The SPEP reported abnormal protein is 0.3 on 09/17/2020 and it was reported at 0.2 on 12/06/2020. C. After consultation with Dr. Rodriguez, it has been advised Ms. Clark resume her treatment as soon as that can be arranged. She will need repeat eye exam as he needs to be within 2 weeks of her treatment. She will call Dr. Muñoz's office and set this up as she wants to get new glasses as well . D. She will continue the same treatment plan with the Blenrep. If it is greater than 2 weeks before she starts she will require repeat labs it within the 2-week window we will use the labs from the . 2. DVT chronic and acute from 11/12/2020. (See above documentation) A. Continue Eliquis 5 twice daily and Plavix 75 mg daily B. She states she has follow-up with interventional radiology in [place] in December 2020. C. She was able to keep her Port-A-Cath. 3. Covid 19+ 10/05/2020 A. She has recovered well and did not require hospitalization. B. She will be eligible for Covid vaccine although she has had positive Covid in the past. 4. We will plan to see her back after she has her eye exam with Dr. Muñoz and completes the rems program for the Blenrep. Her follow-up will be determined after those events have been scheduled. Mrs. Clark was instructed to contact us in the interim should questions or problems arise. 5. Greater than 60 minutes was spent in review of her records prior to her visit; discussion with Ms. Clark of her medical history since her last visit; discussion with Dr. Rodriguez in regards to plan of care; review of labs and outside tests with Ms. Clark as well as post visit documentation. Signed By: Sue Patel-, AOP Ruiz Rodriguez MD <<Signature on File>>
== END 2020-12-11 05:54 | disposition home or self-care (01) ==
LOC: ONCMED 05:54
PROVIDERS: PCP Electrodiagnostic Medicine; Visit Provider Nurse Practitioner
DX: C90.00 Multiple myeloma not having achieved remission (principal); D63.0 Anemia in neoplastic disease; E53.8 Deficiency of other specified B group vitamins; Z86.711 Personal history of pulmonary embolism; Z79.01 Long term (current) use of anticoagulants; Z92.3 Personal history of irradiation; Z79.899 Other long term (current) drug therapy; Z86.16 Personal history of COVID-19
CPT/HCPCS: 99215

== ENCOUNTER 2020-12-13 14:40 | Outpatient (CLI) | payer MEDICARE, SELFPAY | END 2020-12-13 14:41 | disposition home or self-care (01) | LOC: WOUND 14:42 | PROVIDERS: PCP Electrodiagnostic Medicine; Visit Provider Thoracic Surgery (Cardiothoracic Vascular Surgery) | DX: L98.492 Non-pressure chronic ulcer of skin of other sites with fat layer exposed (principal) | CPT/HCPCS: 97597 ==

== ENCOUNTER 2020-12-20 14:59 | Outpatient (CLI) | payer MEDICARE, SELFPAY | END 2020-12-20 15:00 | disposition home or self-care (01) | LOC: WOUND 15:00 | PROVIDERS: PCP Electrodiagnostic Medicine; Visit Provider Thoracic Surgery (Cardiothoracic Vascular Surgery) | DX: L59.8 Other specified disorders of the skin and subcutaneous tissue related to radiation (principal); Y84.2 Radiological procedure and radiotherapy as the cause of abnormal reaction of the patient, or of later complication, without mention of misadventure at the time of the procedure; Y78.1 Therapeutic (nonsurgical) and rehabilitative radiological devices associated with adverse incidents | CPT/HCPCS: 99212 ==

== ENCOUNTER 2020-12-28 09:13 | Outpatient (CLI) | payer MEDICARE, SELFPAY ==
[2020-12-28 10:08] LABS: Basophils # 0.1 10^3/uL (0.0-0.1); Basophils % 1.8 %; Eosinophils # 0.1 10^3/uL (0.0-0.8); Eosinophils % 2.2 %; Hematocrit 39.4 % (37.0-47.0); Hemoglobin 12.7 g/dL (11.5-15.3); Lymphocytes % 35.9 %; Mean Corpuscular HGB Conc 32.2 g/dL (30.0-36.0); Mean Corpuscular Hemoglobin 28.7 pg (28.0-34.0); Mean Corpuscular Volume 89.1 fL (81-99); Mean Platelet Volume 12.2 fL (7.4-10.4); Monocytes # 0.7 10^3/uL (0.2-0.9); Neutrophils # 2.66 10^3/uL (1.8-7.7); Neutrophils % 48.1 %; Nucleated Red Blood Cells % 0 %; Platelet Count 256 10^3/cmm (130-400); Red Blood Count 4.42 10^6/uL (4.1-5.3); Red Cell Distribution Width 15.4 % (12.1-15.1); White Blood Count 5.5 10^3/uL (4.0-10.0)
[2020-12-28] MEDS: ondansetron 2 mg/ML SDV 2 mL 8 MG IVP (10:10)
[2020-12-28] MEDS: acetaminophen 325 mg Tablet 650 MG PO (10:10)
[2020-12-28] MEDS: sodium chloride 0.9% 250 ML 999 ML IV (10:15)
[2020-12-28 10:27] LABS: Alanine Aminotransferase 18 U/L (0-33); Albumin Level 3.6 g/dL (3.5-5.2); Alkaline Phosphatase 93 IU/L (35-105); Aspartate Amino Transferase 24 U/L (0-32); Blood Urea Nitrogen 13 mg/dL (8-23); Calcium 8.8 mg/dL (8.5-10.5); Carbon Dioxide 30 mmol/L (22-29); Chloride 104 mmol/L (98-107); Globulin 2.1 g/dL (1.3-4.6); Glomerular Filtration Rate 71.1 mL/min (90-130); Glucose 83 mg/dL (65-115); Osmolality Calculated 291 mOsm/kg (285-295); Sodium 141 mmol/L (136-145); Total Bilirubin 0.3 mg/dL (0.15-1.2); Total Protein 5.7 g/dL (6.6-8.7)
[2020-12-28] MEDS: alteplase 1 mg/mL SDV 2 mL 2 MG IV (10:31)
[2020-12-29 08:38] LABS: PROTEIN, TOTAL 5.3 g/dL (6.1-8.1)
[2020-12-31 12:27] LABS: KAPPA LIGHT CHAIN, FREE, SERUM 18.9 mg/L (3.3-19.4); KAPPA/LAMBDA LIGHT CHAINS FREE 0.26 (0.26-1.65); LAMBDA LIGHT CHAIN, FREE, SERU 71.8 mg/L (5.7-26.3)
[2020-12-31 12:57] LABS: ABNORMAL PROTEIN BAND 1 0.2 g/dL (NONE DETECTED); ALBUMIN 3.4 g/dL (3.8-4.8); ALPHA 1 GLOBULIN 0.2 g/dL (0.2-0.3); ALPHA 2 GLOBULIN 0.7 g/dL (0.5-0.9); BETA 1 GLOBULIN 0.4 g/dL (0.4-0.6); BETA 2 GLOBULIN 0.2 g/dL (0.2-0.5); GAMMA GLOBULIN 0.4 g/dL (0.8-1.7)
== END 2020-12-28 09:14 | disposition home or self-care (01) ==
PROVIDERS: PCP Electrodiagnostic Medicine; Visit Provider Internal Medicine Medical Oncology
DX: Z51.12 Encounter for antineoplastic immunotherapy (principal); C90.30 Solitary plasmacytoma not having achieved remission; C79.51 Secondary malignant neoplasm of bone; D47.2 Monoclonal gammopathy; D50.9 Iron deficiency anemia, unspecified; E83.51 Hypocalcemia; R22.0 Localized swelling, mass and lump, head
CPT/HCPCS: 36415; 80053; 83883; 84155; 84165; 85025; 96375; 96376; 96413; C9069; J2405; J2997; J7050

== ENCOUNTER 2021-01-03 13:14 | Outpatient (CLI) | payer MEDICARE, SELFPAY | END 2021-01-03 13:15 | disposition home or self-care (01) | LOC: WOUND 13:15 | PROVIDERS: PCP Electrodiagnostic Medicine; Visit Provider Nurse Practitioner Family | DX: L59.8 Other specified disorders of the skin and subcutaneous tissue related to radiation (principal); Y84.2 Radiological procedure and radiotherapy as the cause of abnormal reaction of the patient, or of later complication, without mention of misadventure at the time of the procedure; Y78.1 Therapeutic (nonsurgical) and rehabilitative radiological devices associated with adverse incidents | CPT/HCPCS: 11042 ==

== ENCOUNTER 2021-01-10 13:49 | Outpatient (CLI) | payer MEDICARE, SELFPAY | END 2021-01-10 13:50 | disposition home or self-care (01) | LOC: WOUND 13:50 | PROVIDERS: PCP Electrodiagnostic Medicine; Visit Provider Thoracic Surgery (Cardiothoracic Vascular Surgery) | DX: L59.8 Other specified disorders of the skin and subcutaneous tissue related to radiation (principal); Y84.2 Radiological procedure and radiotherapy as the cause of abnormal reaction of the patient, or of later complication, without mention of misadventure at the time of the procedure; Y78.1 Therapeutic (nonsurgical) and rehabilitative radiological devices associated with adverse incidents | CPT/HCPCS: 11042 ==

== ENCOUNTER 2021-01-18 05:44 | Outpatient (CLI) | payer MEDICARE, SELFPAY ==
[2021-01-18] MEDS: alteplase 1 mg/mL SDV 2 mL 2 MG IV (08:18)
[2021-01-18 08:48] LABS: Basophils # 0.1 10^3/uL (0.0-0.1); Basophils % 1.3 %; Eosinophils # 0.1 10^3/uL (0.0-0.8); Eosinophils % 1.3 %; Hemoglobin 11.8 g/dL (11.5-15.3); Lymphocytes # 2.6 10^3/uL (0.8-4.8); Lymphocytes % 48.5 %; Mean Corpuscular HGB Conc 31.9 g/dL (30.0-36.0); Mean Corpuscular Hemoglobin 28.1 pg (28.0-34.0); Mean Corpuscular Volume 88.1 fL (81-99); Mean Platelet Volume 12.4 fL (7.4-10.4); Monocytes # 0.6 10^3/uL (0.2-0.9); Monocytes % 11.1 %; Neutrophils # 1.99 10^3/uL (1.8-7.7); Neutrophils % 37.6 %; Nucleated Red Blood Cells % 0 %; Platelet Count 192 10^3/cmm (130-400); Red Cell Distribution Width 14.3 % (12.1-15.1); White Blood Count 5.3 10^3/uL (4.0-10.0)
[2021-01-18 09:16] LABS: Alanine Aminotransferase 14 U/L (0-33); Albumin Level 3.4 g/dL (3.5-5.2); Alkaline Phosphatase 101 IU/L (35-105); Aspartate Amino Transferase 26 U/L (0-32); Blood Urea Nitrogen 8 mg/dL (8-23); Calcium 9.1 mg/dL (8.5-10.5); Carbon Dioxide 27 mmol/L (22-29); Chloride 109 mmol/L (98-107); Globulin 2.2 g/dL (1.3-4.6); Glucose 82 mg/dL (65-115); Osmolality Calculated 291 mOsm/kg (285-295); Sodium 142 mmol/L (136-145); Total Bilirubin 0.2 mg/dL (0.15-1.2); Total Protein 5.6 g/dL (6.6-8.7)
[2021-01-18 09:20] LABS: Anion Gap 9.4 (5-19); Potassium 3.4 mmol/L (3.5-5.1)
== END 2021-01-18 05:45 | disposition home or self-care (01) ==
LOC: ONCMED 05:45
PROVIDERS: PCP Electrodiagnostic Medicine; Visit Provider Nurse Practitioner
DX: C90.00 Multiple myeloma not having achieved remission (principal)
CPT/HCPCS: 36415; 36593; 80053; 85025; 96374; J2997

== ENCOUNTER 2021-01-21 08:30 | Outpatient (CLI) | payer MEDICARE, SELFPAY ==
--- NOTE | 2021-01-21 09:50 | IR_ITS ---
WS: [id number] INDICATION: Port study TECHNIQUE: Fluoroscopically guided port injection for patency Fluoroscopy time 1 minute FINDINGS: Left Port-A-Cath with tip in the distal left brachiocephalic vein. Brachiocephalic vascular stent. Tortuosity of the port tubing overlying the left chest is similar in appearance to the CT Yaya uary 2020. Active injection of the Port-A-Cath demonstrates patent innominate and superior vena cava. The tip of the catheter adjacent to the brachiocephalic sidewall. Suggestion of fibrin sheath involving the dis dwaine catheter with retrograde contrast opacification along the catheter. IR/[place] [id number] IMPRESSION: 1. Left Port-A-Cath with tip in the distal left brachiocephalic vein with tip along the sidewall. 2. Fibrin sheath involving the distal catheter with retrograde flow of contras t along and around the sheath. Recommend surgical evaluation. 3. Normal filling of the innominate and superior vena cava which appear patent Notified Ruiz Rodriguez MD at 01/21/2021 1:25 PM.
--- NOTE | 2021-01-21 09:59 | XRR_ITS ---
PROCEDURE INFORMATION: Exam: XR Right Shoulder Exam date and time: 01/21/2021 10:19 AM Age: 70 years old Clinical indication: Pain; Shoulder; Right; Prior surgery; Surgery type: Port; Additional info: Right shoulder pain TECHNIQUE: Imaging protocol: XR Right shoulder. Views: AP internal and external rotation views of the right shoulder. COMPARISON: CR XR shoulder LT min 2V* [id number] 11/12/2020 1:53 PM FINDINGS: Bones/joints: Healed right midclavicular fracture. Inferior scapular glenoid articular marginal hypertrophy. No destructive bony process identified. Soft tissues: Normal. XR/XR shoulder RT min 2V* [id number] IMPRESSION: Right glenohumeral joint primary osteoarthritis .
--- NOTE | 2021-01-21 10:00 | XRR_ITS ---
PROCEDURE INFORMATION: Exam: XR Right Humerus Exam date and time: 01/21/2021 10:31 AM Age: 70 years old Clinical indication: Pain and condition or disease; Other: Myeloma; Upper arm; Right TECHNIQUE: Imaging protocol: XR Right humerus. Views: 2 or more views. COMPARISON: CR Forearm RIGHT [id number] 10/12/2017 10:29 AM FINDINGS: Bones/joints: Normal. Soft tissues: Normal. XR/[place] [id number] IMPRESSION: No acute findings.
[2021-01-21] MEDS: ondansetron 2 mg/ML SDV 2 mL 8 MG IVP (10:50)
[2021-01-21] MEDS: sodium chloride 0.9% 250 ML 999 ML IV (10:50)
[2021-01-21] MEDS: acetaminophen 325 mg Tablet 650 MG PO (10:50)
[2021-01-21] MEDS: diphenhydrAMINE 50 mg/mL SDV 1mL 25 MG IVP (10:53)
[2021-01-21] MEDS: iohexol 300 mg/mL 50 mL Btl IV (13:47)
--- NOTE | 2021-01-23 12:04 | ONC FU_ITS ---
Dr. Rodriguez Patient Follow-Up Note Patient: Valentin Clark Unit #: [id number]: 1950 Dicatated By: Ruiz Rodriguez M.D.Date of Visit:Jan 21, 2021 Onc Med Follow-up/Prog Note Chief Complaint: Mulitple myeloma. 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 In March 2018 she had bumped her head at work and in the process of that she became aware of a small lump, though it was actually in a slightly different area. She then noticed that the lump was getting larger. Evaluation with head MRI on 06/07/2018 showed evidence of a right parietal occipital extra-axial neoplasm, felt to be most likely meningeal in origin. It was noted to exert mass effect on the right parietal and occipital lobes, but without associated midline shift or white matter parenchymal edema. The lesion was noted to invade through the calvarium and into the subcutaneous parietal occipital scalp soft tissues. The mass measured 5.7 x 3.5 x 6 cm. 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 The area of occlusion was noted to extend over approximately 4.3 cm. She was seen by Dr. Landry and subsequently referred for neurosurgery evaluation at [facility]. Initially they had considered possible surgical resection. Her further evaluation there apparently included laboratory findings which were suspicious for myeloma, and it was recommended that she have treatment with radiation. She was seen here for further management on 07/14/2018. She then returned to Dr. Landry, and on 07/20/2018 she underwent open biopsy/resection of the extracranial extent of the mass. 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 Her further evaluation included protein electrophoresis which showed an IgG lambda monoclonal protein in the serum quantitating at 0.48 g/dL. The serum free light chain assay showed elevated lambda light chain at 374.65 mg/L with decreased kappa/lambda ratio at 0.06. The 24-hour urine protein electrophoresis showed no monoclonal protein. There were no other areas of lytic bone involvement noted on her skeletal survey. Bone marrow aspiration/biopsy on 07/30/2018 showed a monotypic plasma cell population, but it comprised only 2% of the total cellularity. A FISH panel for myeloma was unrevealing, and the standard chromosome analysis was normal. She was referred to Dr. Kaur, and she began radiation to the lesion on 07/30/2018. She completed treatment on 09/02/2018 to a total dose of 5,000 cGy. She had evaluation with CT pulmonary angiogram on 09/14/2018. It showed moderate bilateral pulmonary embolic burden. She began on anticoagulation with apixaban. During her subsequent follow-up she continued to have an open wound at the site of the plasmacytoma in the parietal-occipital scalp region. As of her follow-up visit on 10/19/2018 her M protein was stable 0.37 g/dL. In the absence of any evidence of symptomatic myeloma, she had otherwise just continued on observation/expectant management. However, due to her persistent scalp wound she had a repeat brain MRI on 01/11/2019. It showed evidence of residual neoplastic process at the resection site. There was associated dural involvement but with improved signal characteristics and decreased enhancement compared to the study from September 2018. She was seen for a follow-up visit on 01/20/2019. In view of the MRI findings, she had further evaluation with PET/CT on 02/03/2019. It showed increase in size and expansile hypermetabolic lesion within the left ilium with extension of hypermetabolic tumor into the adjacent left iliac muscle. There was a new hypermetabolic lytic process within the right S1/S2 region. A large lytic mass within the posterior calvarium did not appear to have active hypermetabolism. Also noted, though, was a hypermetabolic lesion within the medullary canal of the distal left femoral diametaphysis and an additional hypermetabolic focus in the anterior cortex of the distal right femur concerning for additional areas of myeloma. In the setting of obvious progression of her myeloma, she began treatment with VRd on 02/23/2019. At that time she also received an infusion of IV Zometa for the lytic bone involvement. She experienced multiple toxicities with the VRD regimen, requiring dose reductions and treatment delays. Beginning with cycle 4, and June 2019 the Velcade was dropped from the regimen, and the following month her treatment was put on hold due to multiple toxicities, mainly severe fatigue and excessive somnolence. She was found to have a low B12 level, for which she began on B12 replacement therapy. At her follow-up visit on 11/28/2019 she was still mildly anemic, and transferrin saturation was still low at 17% despite being on oral iron replacement. As such, she was then given parenteral iron replacement with infusions of Injectafer on 11/28/2019 and on 12/05/2019. With the 11/28 visit she also was given denosumab 120 mg by subcutaneous injection for the lytic bone involvement. On 12/06/2019 she was admitted to the hospital with symptomatic hypocalcemia, serum calcium 5.9 mg/dL with albumin 2.9 g/dL. Renal function was stable with creatinine 1.0 mg/dL, but her potassium also was low at 3.2 mmol/L. She was given IV calcium and potassium replacement. She then continued further IV replacement as an outpatient. Despite that she was readmitted to the hospital with hypocalcemia on 12/15/2019. She was discharged home on 12/23/2019. Her evaluation included CT pulmonary angiogram which showed no evidence of pulmonary embolism. There was evidence of cardiomegaly, a small pericardial effusion, and small bilateral pleural effusions. Echocardiogram showed small, hemodynamically insignificant pericardial effusion and normal left ventricular function. She then returned here on 12/27/2019 and she has since then continued IV fluid and electrolyte replacement, daily for the first week and then on Mondays, Wednesdays, and Fridays. Despite that, she continued to feel weak and shaky, and she had ongoing complaints of nausea and anorexia. She continued to require IV fluid and electrolyte replacement but she did show gradual recovery. Her further treatment remained on hold. Repeat protein electrophoresis on 01/16/2020 showed stable M protein at 0.4 g/dL. The serum free light chain assay showed elevated free lambda light chain at 254 mg/L with decreased kappa/lambda ratio at 0.16. There was no monoclonal protein identified in the 24-hour urine protein electrophoresis. Restaging PET/CT on 02/24/2020 showed findings concerning for disease progression with new areas of marrow hypermetabolism within the right proximal humerus and within the bilateral distal femoral diametaphysis. The existing areas of involvement within the left ilium and sacrum showed further decrease in FDG uptake. With those findings, I had recommended that she proceed to second line treatment with daratumumab/dexamethasone. She eventually was able to begin her initial infusion of daratumumab on 03/21/2020. Her repeat free light chain assay prior to that showed further increase in the lambda light chain to 537 mg/L with kappa/lambda ratio 0.06. She tolerated the daratumumab with no adverse effects, and she then continued treatment weekly. On 05/03/2020 she underwent EGD and colonoscopy by Dr. Jimenes. The EGD showed no significant abnormal findings, and the colonoscopy showed just 2 small polyps in the rectum. 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 As of 05/09/2020 she had completed her 8th infusion on the weekly schedule, and as of 05/16/2020 she received her 1st of 8 planned infusions at the 2-week interval. Her M protein at that point was stable at 0.4 g/dL. The free light chain assay showed a decrease in the free lambda light chain from 537.42 205.2 mg/L. However, her repeat head MRI on 06/05/2020 showed significant progression of the myelomatous lesions within the skull compared to the study from January 2020. Numerous calvarial lesions were now present, the largest in the right parietal bone measuring 2.2 cm. The postoperative resection site in the posterior right parietal lobe showed significantly more enhancement with slightly more dural enhancement, also suspicious for progression of neoplastic changes. With that finding, she had continued the daratumumab and dexamethasone, but beginning on 06/27/2020 she added pomalidomide at a reduced dosage of 2 mg daily on a 21/28-day schedule. Her repeat PET/CT on 07/12/2020 showed a large lytic lesion within the posterior right calvarium, but without associated hypermetabolism. There were no new lesions identified within the calvarium. There was persistent hypermetabolism noted within the proximal right humerus, SUV 3.6, and there was new hypermetabolism within the marrow of the proximal left humerus, SUV 3.6. There was decrease in FDG uptake within the medial left ilium. There was persistent hypermetabolism noted in the right femoral diametaphysis and in the distal left femoral diametaphysis. There was new hypermetabolism noted in the proximal left tibia. Overall the findings were concerning for disease progression, and she was recommended to undergo a trial of salvage therapy with belantamab [id number]. Her other medical illnesses include hypertension and degenerative arthritis/degenerative disease of the spine. She has associated cervical and lumbar spinal stenosis. She has a history of endometriosis, and she has anxiety/depression. She is a nonsmoker. INTERIM HISTORY: On 08/29/2020 she began cycle 1 of belantamab [id number]. She tolerated the initial infusion without acute toxicity. She continued with cycle 2 on 09/19/2020. Her further management was then complicated by COVID-19 virus infection and by left upper extremity deep vein thrombosis for which she underwent revascularization of the left innominate vein and manual thrombectomy of the left subclavian vein. She was able to continue with cycle 3 of belantamab-mafodotin on 12/28/2020. She is seen for a scheduled visit. At her follow-up visit prior to her third cycle she had been feeling remarkably better. Since then she has not been feeling as good, with her energy back down again. She is able to do some light work. Her ECOG score is 1. She says she does not care if she eats, but her weight is stable. She does not have fever or night sweats. She still has pains in her head, which come and go. Recently she has had pain in her right rib cage and she also complains of having pain in her right shoulder. She has not had sore mouth or throat, and she does not complain of cough. She occasionally has shortness of breath. She has not had chest pain. She has been having severe abdominal pain and diarrhea, worse after eating. She has urinary frequency and urgency, and she has some associated bladder incontinence. She does not complain of dizziness. She does have some numbness at times in her right hand. Medications: Acetaminophen 2 Tablet (of 500 mg) Oral PRN, B-12 Dots 1 Tablet (of 500 mcg) Tablet Dispersable Oral daily, Bisacodyl 1 Tablet (of 5 mg) Tablet, enteric coated Oral daily, Eliquis 1 Tablet (of 5 mg) Oral b.i.d., FLUoxetine HCl 1 Tablet (of 10 mg) Oral daily, FLUoxetine HCl 1 Capsule (of 20 mg) Oral daily, Metoprolol Tartrate 0.5 Tablet (of 25 mg) Oral b.i.d., Plavix 1 Tablet (of 75 mg) Oral daily, Probiotic Capsule Oral PRN Allergies: BusPIRone HCl, Codeine and Related, Levaquin, and Morphine Derivatives. Vital Signs: Performed on Jan 21, 2021 08:33 Height - 63.50 in Weight - 200 lbs (HIGH) BSA - 1.94 sq.m BMI - 34.87 (HIGH) Temperature - 96.4 F (LOW) Pulse - 62 /min Respiration - 20 /min BP - 157/79 mm(hg) (HIGH) O2 Sat - 97 % Pain - 0 Fatigue - 6 Physical Examination: Constitutional - She looks pretty good generally, Eyes - Sclerae nonicteric. Conjunctivae clear, ENMT - No lesions noted in the oral cavity, Hematologic/Lymphatic - No cervical, clavicular, or axillary adenopathy, Respiratory - Lungs sound clear, Cardiovascular - Heart rhythm is regular. There is a II/ systolic murmur. There is no gallop or rub noted, Abdomen - Soft. Liver and spleen are not enlarged. There is no abdominal mass or ascites noted and there is no inguinal adenopathy, Extremities - No edema. There is a soft nodule palpable on the anterior aspect of the right ankle measuring about 2 cm, Integumentary - The wound in the vertex area of her scalp appears to be gradually healing, Neurologic - No focal neurologic deficits noted. Lab/Imaging: CBC shows hemoglobin 11.8 g, white blood cell count 5300, and platelet count 192,000. Comprehensive metabolic profile shows stable renal function with BUN 8 and creatinine 0.7 mg/dL. Potassium is slightly low at 3.4 mmol/L. Calcium normal at 9.1 mg/dL. Bilirubin and liver enzymes are normal. The serum protein electrophoresis studies from 12/28/2020 showed M protein stable at 0.2 g/dL. The free lambda light chain was 71.8 mg/L compared to a pretreatment level of 319.6 mg/L in June 2020. Problem List: 1. IgG lambda myeloma presenting with plasmacytoma involving the right parietal-occipital extra-axial space. She underwent resection/open biopsy of the extracranial portion of the mass on 07/20/2018. 2. She has persistent open wound at the biopsy site. 3. She has had thromboembolism with pulmonary emboli documenby CT pulmonary angiogram on 09/14/2018 and with left upper extremity deep vein thrombosis in October 2020. She required hospitalization in November 2020 for revascularization of the left innominate vein and manual thrombectomy of the left subclavian vein. 4. Degenerative arthritis and degenerative disease of the spine with associated cervical and lumbar spinal stenosis. 5. Hypertension. 6. Endometriosis. 7. Anxiety/depression. Problems Addressed with this Encounter and Plan: 1. Patient with IgG lambda myeloma presenting with plasmacytoma involving the right parietal-occipital extra-axial space. She underwent resection/open biopsy of the extracranial portion of the mass on 07/20/2018. She then underwent radiation, completed on 09/02/2018 to a total dose of 5000 cGy. She had associated IgG lambda monoclonal protein in the serum and 2% monoclonal plasma cells in the bone marrow, consistent with underlying myeloma. Initially it appeared to otherwise not be symptomatic, and she was followed expectantly following completion of the radiation. By January 2019 she had developed increasing pain in the left hip/buttock area. Her repeat protein electrophoresis studies showed only a slight increase in her M protein, but her repeat PET/CT on 02/03/2019 showed significant progression of lytic bone involvement in the left ilium. There was also possible involvement in the distal right femur. The area of lytic involvement in the calvarium was not metabolically active. On 02/23/2019 she began cycle 1 of Velcade/Revlimid/dexamethasone. She also was given an infusion of Zometa for the lytic bone involvement. She had multiple toxicities with the treatment, requiring dose reductions and treatment delays. As of July 2019 her treatment was stopped and she subsequently transitioned to maintenance Revlimid at 5 mg daily. During subsequent follow-up she began treatment for both B12 deficiency and iron deficiency. In November 2019 she was given parenteral iron replacement with Injectafer, and she also began treatment with denosumab for the lytic bone involvement. On 12/06/2019 she was admitted to the hospital with symptomatic hypocalcemia. She also had hypokalemia and hypophosphatemia. I was uncertain to what extent those abnormalities were due to the Injectafer, to the denosumab, or both. However, she continued to have persistent symptomatic hypocalemia and hypophosphatemia requiring prolonged IV and oral replacement therapy. She eventually recovered, but during that time her maintenance Revlimid had been stopped. As of January 2020 her protein electrophoresis studies had shown evidence of progression of her myeloma with increasing free lambda light chain and her restaging PET/CT in February also showed findings suspicious for disease progression. She did not appear to be overtly symptomatic, but with evidence of disease progression, she was recommended to begin second line treatment with daratumumab/dexamethasone. She was able to tolerate the daratumumab/dexamethasone with acceptable toxicity, but as of May 2020 her repeat had MRI showed significant worsening of calvarial lesions, consistent with disease progression. She then continued daratumumab and dexamethasone with addition of pomalidomide beginning in June 2020. She tolerated the treatment very poorly due to [employer] side effects. Her repeat PET/CT on 07/12/2020 showed a large lytic lesion within the posterior right calvarium, but without associated hypermetabolism. There were no new lesions identified within the calvarium. There was persistent hypermetabolism noted within the proximal right humerus, SUV 3.6, and there was new hypermetabolism within the marrow of the proximal left humerus, SUV 3.6. There was decrease in FDG uptake within the medial left ilium. There was persistent hypermetabolism noted in the right femoral diametaphysis and in the distal left femoral diametaphysis. There was new hypermetabolism noted in the proximal left tibia. Overall the findings were concerning for disease progression. On 08/29/2020 she began a trial of salvage therapy with belantamab [id number]. She tolerated the initial infusion with acceptable toxicity, and she continued with cycle 2 on 09/19/2020. Her further clinical course was then complicated by COVID-19 virus infection and by left upper extremity deep vein thrombosis requiring revascularization of the left innominate vein and manual thrombectomy of the left subclavian vein. She then continued with cycle 3 of belantamab mafodotin on 12/28/2020. At this point she continues to have significant fatigue and she also is having pain in different areas, particularly her head, right shoulder, and right rib cage. However, she does appear to be tolerating the belantamab mafodotin with acceptable toxicity. She will proceed now with her 4th cycle of treatment. The dosage remains the same. She returns in 3 weeks. In the meantime, she appears to be having some new pain in the right shoulder, I will x-ray that area. She will have further evaluation as indicated. 2. She is having postprandial abdominal pain and diarrhea. At this point the cause is uncertain. It is possible that it is treatment related, but those do not appear to be common side effects with the. She will bring in a stool sample to recheck for C. difficile. Assuming that is negative, she is given instructions to take 2 Imodium every morning and to repeat 2 tablets as needed for diarrhea up to a total of 4 doses per day. She will require ongoing monitoring of her electrolytes. 3. She has had thromboembolism including pulmonary emboli in August 2018 and left upper extremity deep vein thrombosis while on anticoagulation. She continues her anticoagulation with apixaban 5 mg twice daily. Signed By: Riuz Rodriguez M.D. <<Signature on File>>
== END 2021-01-21 08:31 | disposition home or self-care (01) ==
PROVIDERS: PCP Electrodiagnostic Medicine; Visit Provider Internal Medicine Medical Oncology
DX: Z51.12 Encounter for antineoplastic immunotherapy (principal); C90.00 Multiple myeloma not having achieved remission; M25.511 Pain in right shoulder; R19.7 Diarrhea, unspecified; R10.9 Unspecified abdominal pain; R53.83 Other fatigue; Z45.2 Encounter for adjustment and management of vascular access device; Z92.3 Personal history of irradiation; Z79.899 Other long term (current) drug therapy; Z86.16 Personal history of COVID-19; Z86.718 Personal history of other venous thrombosis and embolism; Z79.01 Long term (current) use of anticoagulants; Z95.828 Presence of other vascular implants and grafts
CPT/HCPCS: 36598; 73030; 73060; 96375; 96413; 99215; C9069; J1200; J2405; J7050; Q9967

== ENCOUNTER 2021-01-24 14:06 | Outpatient (CLI) | payer MEDICARE, SELFPAY | END 2021-01-24 14:07 | disposition home or self-care (01) | LOC: WOUND 14:07 | PROVIDERS: PCP Electrodiagnostic Medicine; Visit Provider Thoracic Surgery (Cardiothoracic Vascular Surgery) | DX: L59.8 Other specified disorders of the skin and subcutaneous tissue related to radiation (principal); Y84.2 Radiological procedure and radiotherapy as the cause of abnormal reaction of the patient, or of later complication, without mention of misadventure at the time of the procedure; Y78.1 Therapeutic (nonsurgical) and rehabilitative radiological devices associated with adverse incidents | CPT/HCPCS: 97597 ==

== ENCOUNTER 2021-02-07 14:04 | Outpatient (CLI) | payer MEDICARE, SELFPAY | END 2021-02-07 14:05 | disposition home or self-care (01) | LOC: WOUND 14:05 | PROVIDERS: PCP Electrodiagnostic Medicine; Visit Provider Thoracic Surgery (Cardiothoracic Vascular Surgery) | DX: L59.8 Other specified disorders of the skin and subcutaneous tissue related to radiation (principal); Y84.2 Radiological procedure and radiotherapy as the cause of abnormal reaction of the patient, or of later complication, without mention of misadventure at the time of the procedure; Y78.1 Therapeutic (nonsurgical) and rehabilitative radiological devices associated with adverse incidents | CPT/HCPCS: 11042 ==

== ENCOUNTER 2021-02-11 05:53 | Outpatient (CLI) | payer MEDICARE, SELFPAY ==
[2021-02-11 10:59] LABS: Basophils # 0.1 10^3/uL (0.0-0.1); Basophils % 1.6 %; Eosinophils # 0.1 10^3/uL (0.0-0.8); Eosinophils % 1.1 %; Hematocrit 38.8 % (37.0-47.0); Hemoglobin 12.3 g/dL (11.5-15.3); Lymphocytes # 3.4 10^3/uL (0.8-4.8); Lymphocytes % 47.5 %; Mean Corpuscular HGB Conc 31.7 g/dL (30.0-36.0); Mean Corpuscular Hemoglobin 27.6 pg (28.0-34.0); Mean Platelet Volume 11.8 fL (7.4-10.4); Monocytes # 0.8 10^3/uL (0.2-0.9); Monocytes % 11.9 %; Neutrophils # 2.68 10^3/uL (1.8-7.7); Neutrophils % 37.8 %; Nucleated Red Blood Cells % 0 %; Platelet Count 224 10^3/cmm (130-400); Red Blood Count 4.46 10^6/uL (4.1-5.3); Red Cell Distribution Width 14.5 % (12.1-15.1); White Blood Count 7.1 10^3/uL (4.0-10.0)
[2021-02-11 11:25] LABS: Alanine Aminotransferase 20 U/L (0-33); Albumin Level 3.6 g/dL (3.5-5.2); Alkaline Phosphatase 104 IU/L (35-105); Anion Gap 9.6 (5-19); Aspartate Amino Transferase 28 U/L (0-32); Blood Urea Nitrogen 17 mg/dL (8-23); Carbon Dioxide 30 mmol/L (22-29); Chloride 102 mmol/L (98-107); Globulin 2.3 g/dL (1.3-4.6); Glomerular Filtration Rate 49.1 mL/min (90-130); Glucose 76 mg/dL (65-115); Lactate Dehydrogenase 128 U/L (135-214); Osmolality Calculated 286 mOsm/kg (285-295); Potassium 3.6 mmol/L (3.5-5.1); Sodium 138 mmol/L (136-145); Total Bilirubin 0.2 mg/dL (0.15-1.2); Total Protein 5.9 g/dL (6.6-8.7)
[2021-02-11 11:40] LABS: Erythrocyte Sedimentation Rate 17 mm/hr (0-15)
[2021-02-11] MEDS: sodium chloride 0.9% 250 ML 999 ML IV (12:40)
[2021-02-11] MEDS: acetaminophen 325 mg Tablet 650 MG PO (12:40)
[2021-02-11] MEDS: ondansetron 2 mg/ML SDV 2 mL 8 MG IVP (12:42)
[2021-02-11] MEDS: diphenhydrAMINE 50 mg/mL SDV 1mL 25 MG IVP (12:45)
[2021-02-12 08:23] LABS: PROTEIN, TOTAL 5.4 g/dL (6.1-8.1)
[2021-02-13 12:02] LABS: KAPPA LIGHT CHAIN, FREE, SERUM 18.2 mg/L (3.3-19.4); KAPPA/LAMBDA LIGHT CHAINS FREE 0.44 (0.26-1.65); LAMBDA LIGHT CHAIN, FREE, SERU 41.3 mg/L (5.7-26.3)
[2021-02-13 14:07] LABS: ABNORMAL PROTEIN BAND 1 0.2 g/dL (NONE DETECTED); ALBUMIN 3.2 g/dL (3.8-4.8); ALPHA 1 GLOBULIN 0.3 g/dL (0.2-0.3); ALPHA 2 GLOBULIN 0.8 g/dL (0.5-0.9); BETA 1 GLOBULIN 0.4 g/dL (0.4-0.6); BETA 2 GLOBULIN 0.2 g/dL (0.2-0.5); GAMMA GLOBULIN 0.5 g/dL (0.8-1.7)
--- NOTE | 2021-02-14 | ONC FU_ITS ---
[facility] Patient Note Patient: Valentin Clark Unit #: [id number]: [id number] Dictated By: Sue PatelDate of Visit: Feb 11, 2021 Onc MED Follow-Up/Prog Note Chief Complaint: Mulitple myeloma. 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 In March 2018 she had bumped her head at work and in the process of that she became aware of a small lump, though it was actually in a slightly different area. She then noticed that the lump was getting larger. Evaluation with head MRI on 06/07/2018 showed evidence of a right parietal occipital extra-axial neoplasm, felt to be most likely meningeal in origin. It was noted to exert mass effect on the right parietal and occipital lobes, but without associated midline shift or white matter parenchymal edema. The lesion was noted to invade through the calvarium and into the subcutaneous parietal occipital scalp soft tissues. The mass measured 5.7 x 3.5 x 6 cm. 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 The area of occlusion was noted to extend over approximately 4.3 cm. She was seen by Dr. Landry and subsequently referred for neurosurgery evaluation at [facility]. Initially they had considered possible surgical resection. Her further evaluation there apparently included laboratory findings which were suspicious for myeloma, and it was recommended that she have treatment with radiation. She was seen here for further management on 07/14/2018. She then returned to Dr. Landry, and on 07/20/2018 she underwent open biopsy/resection of the extracranial extent of the mass. 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 Her further evaluation included protein electrophoresis which showed an IgG lambda monoclonal protein in the serum quantitating at 0.48 g/dL. The serum free light chain assay showed elevated lambda light chain at 374.65 mg/L with decreased kappa/lambda ratio at 0.06. The 24-hour urine protein electrophoresis showed no monoclonal protein. There were no other areas of lytic bone involvement noted on her skeletal survey. Bone marrow aspiration/biopsy on 07/30/2018 showed a monotypic plasma cell population, but it comprised only 2% of the total cellularity. A FISH panel for myeloma was unrevealing, and the standard chromosome analysis was normal. She was referred to Dr. Kaur, and she began radiation to the lesion on 07/30/2018. She completed treatment on 09/02/2018 to a total dose of 5,000 cGy. She had evaluation with CT pulmonary angiogram on 09/14/2018. It showed moderate bilateral pulmonary embolic burden. She began on anticoagulation with apixaban. During her subsequent follow-up she continued to have an open wound at the site of the plasmacytoma in the parietal-occipital scalp region. As of her follow-up visit on 10/19/2018 her M protein was stable 0.37 g/dL. In the absence of any evidence of symptomatic myeloma, she had otherwise just continued on observation/expectant management. However, due to her persistent scalp wound she had a repeat brain MRI on 01/11/2019. It showed evidence of residual neoplastic process at the resection site. There was associated dural involvement but with improved signal characteristics and decreased enhancement compared to the study from September 2018. She was seen for a follow-up visit on 01/20/2019. In view of the MRI findings, she had further evaluation with PET/CT on 02/03/2019. It showed increase in size and expansile hypermetabolic lesion within the left ilium with extension of hypermetabolic tumor into the adjacent left iliac muscle. There was a new hypermetabolic lytic process within the right S1/S2 region. A large lytic mass within the posterior calvarium did not appear to have active hypermetabolism. Also noted, though, was a hypermetabolic lesion within the medullary canal of the distal left femoral diametaphysis and an additional hypermetabolic focus in the anterior cortex of the distal right femur concerning for additional areas of myeloma. In the setting of obvious progression of her myeloma, she began treatment with VRd on 02/23/2019. At that time she also received an infusion of IV Zometa for the lytic bone involvement. She experienced multiple toxicities with the VRD regimen, requiring dose reductions and treatment delays. Beginning with cycle 4, and June 2019 the Velcade was dropped from the regimen, and the following month her treatment was put on hold due to multiple toxicities, mainly severe fatigue and excessive somnolence. She was found to have a low B12 level, for which she began on B12 replacement therapy. At her follow-up visit on 11/28/2019 she was still mildly anemic, and transferrin saturation was still low at 17% despite being on oral iron replacement. As such, she was then given parenteral iron replacement with infusions of Injectafer on 11/28/2019 and on 12/05/2019. With the 11/28 visit she also was given denosumab 120 mg by subcutaneous injection for the lytic bone involvement. On 12/06/2019 she was admitted to the hospital with symptomatic hypocalcemia, serum calcium 5.9 mg/dL with albumin 2.9 g/dL. Renal function was stable with creatinine 1.0 mg/dL, but her potassium also was low at 3.2 mmol/L. She was given IV calcium and potassium replacement. She then continued further IV replacement as an outpatient. Despite that she was readmitted to the hospital with hypocalcemia on 12/15/2019. She was discharged home on 12/23/2019. Her evaluation included CT pulmonary angiogram which showed no evidence of pulmonary embolism. There was evidence of cardiomegaly, a small pericardial effusion, and small bilateral pleural effusions. Echocardiogram showed small, hemodynamically insignificant pericardial effusion and normal left ventricular function. She then returned here on 12/27/2019 and she has since then continued IV fluid and electrolyte replacement, daily for the first week and then on Mondays, Wednesdays, and Fridays. Despite that, she continued to feel weak and shaky, and she had ongoing complaints of nausea and anorexia. She continued to require IV fluid and electrolyte replacement but she did show gradual recovery. Her further treatment remained on hold. Repeat protein electrophoresis on 01/16/2020 showed stable M protein at 0.4 g/dL. The serum free light chain assay showed elevated free lambda light chain at 254 mg/L with decreased kappa/lambda ratio at 0.16. There was no monoclonal protein identified in the 24-hour urine protein electrophoresis. Restaging PET/CT on 02/24/2020 showed findings concerning for disease progression with new areas of marrow hypermetabolism within the right proximal humerus and within the bilateral distal femoral diametaphysis. The existing areas of involvement within the left ilium and sacrum showed further decrease in FDG uptake. With those findings, Dr Rodriguez had recommended that she proceed to second line treatment with daratumumab/dexamethasone. She eventually was able to begin her initial infusion of daratumumab on 03/21/2020. Her repeat free light chain assay prior to that showed further increase in the lambda light chain to 537 mg/L with kappa/lambda ratio 0.06. She tolerated the daratumumab with no adverse effects, and she then continued treatment weekly. On 05/03/2020 she underwent EGD and colonoscopy by Dr. Jimenes. The EGD showed no significant abnormal findings, and the colonoscopy showed just 2 small polyps in the rectum. 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 As of 05/09/2020 she had completed her 8th infusion on the weekly schedule, and as of 05/16/2020 she received her 1st of 8 planned infusions at the 2-week interval. Her M protein at that point was stable at 0.4 g/dL. The free light chain assay showed a decrease in the free lambda light chain from 537.42 205.2 mg/L. However, her repeat head MRI on 06/05/2020 showed significant progression of the myelomatous lesions within the skull compared to the study from January 2020. Numerous calvarial lesions were now present, the largest in the right parietal bone measuring 2.2 cm. The postoperative resection site in the posterior right parietal lobe showed significantly more enhancement with slightly more dural enhancement, also suspicious for progression of neoplastic changes. With that finding, she had continued the daratumumab and dexamethasone, but beginning on 06/27/2020 she added pomalidomide at a reduced dosage of 2 mg daily on a 21/28-day schedule. Her repeat PET/CT on 07/12/2020 showed a large lytic lesion within the posterior right calvarium, but without associated hypermetabolism. There were no new lesions identified within the calvarium. There was persistent hypermetabolism noted within the proximal right humerus, SUV 3.6, and there was new hypermetabolism within the marrow of the proximal left humerus, SUV 3.6. There was decrease in FDG uptake within the medial left ilium. There was persistent hypermetabolism noted in the right femoral diametaphysis and in the distal left femoral diametaphysis. There was new hypermetabolism noted in the proximal left tibia. Overall the findings were concerning for disease progression, and she was recommended to undergo a trial of salvage therapy with belantamab [id number]. Her other medical illnesses include hypertension and degenerative arthritis/degenerative disease of the spine. She has associated cervical and lumbar spinal stenosis. She has a history of endometriosis, and she has anxiety/depression. She is a nonsmoker. INTERIM HISTORY: On 08/29/2020 she began cycle 1 of belantamab mafodotin-blmf. She tolerated the initial infusion without acute toxicity. She continued with cycle 2 on 09/19/2020. Her further management was then complicated by COVID-19 virus infection and by left upper extremity deep vein thrombosis for which she underwent revascularization of the left innominate vein and manual thrombectomy of the left subclavian vein. She was able to continue with cycle 3 of belantamab-mafodotin on 12/28/2020. Ms Clark is here today for a scheduled visit. She is due for her 5th cycle of Blenrep. At her follow-up visit prior to her third cycle she had been feeling remarkably better. Since then she has not been feeling as good, with her energy back down again and she is having more pain. She states she is having more head pain. She states a slight headache but more on the right side but radiates around the back of her head to the left side. She states she is having new bone pain as well in the right ribs right hip and is having more neck pain. She states it has been going on for about the last 3 weeks. She did have x-rays of the right forearm on 01/21/2021 which was reported as normal. She also had x-ray of her right shoulder which views include AP internal and external rotation. There was right glenohumeral joint primary osteoarthritis but no evidence of any destructive bony processes or obvious osseous disease. Her last MRI of the head was September 10, 2020. Her last PET scan was July 12, 2020. She states her breathing is about the same. She states that her eyes are itchy like she has been out in the pollen quite a bit. She did have her eye exam with Dr. Muñoz recently and the right eye showed mild superficial keratopathy with no change from baseline. The left eye shows mild superficial keratopathy with a decline from baseline of 1. Based on the belantamab mafodotin dosing adjustments for acute toxicity grade 1 from baseline on the corneal adverse reaction scale the recommended dose of modifications were to continue the current dose. She denies any bowel or bladder changes. she denies any chest pain or palpitations. She denies orthopnea. She has not have fever or chills or any recent signs of infection. Her ECOG is 1. Past Medical History: Anxiety/depression Cervical stenosis Degenerative arthritis Degenerative disease of the spine Depression Endometriosis Hypertension Lumbar stenosis DVT LEFT INTERNAL JUGLAR, LEFT SUBCLAVIAN in 2019 COVID 19 + in 2019 Past Surgical History: Bilateral cataract excisions Cholecystectomy/gastric stapling Removal of ovarian cyst x 2 Tonsillectomy COVID 19 1st in 2020 Angioplasty/stenting of the L innominate vein in 2020 Endovascular revascularization of left upper extremity veins and central veins-[facility] in 2020 Percutaneous mechanical thrombectomy of the L subclavian vein-[facility] in 2020 Left subclavian venous access device???Dr. Soriano[facility] [place] [facility] in 2019 Allergies: BusPIRone HCl, Codeine and Related, Levaquin, and Morphine Derivatives. Medications: Acetaminophen 2 Tablet (of 500 mg) Oral PRN B-12 Dots 1 Tablet (of 500 mcg) Tablet Dispersable Oral daily Bisacodyl 1 Tablet (of 5 mg) Tablet, enteric coated Oral daily Eliquis 1 Tablet (of 5 mg) Oral b.i.d. FLUoxetine HCl 1 Tablet (of 10 mg) Oral daily FLUoxetine HCl 1 Capsule (of 20 mg) Oral daily LORazepam 1 Tablet (of 0.5 mg) Oral b.i.d. PRN Metoprolol Tartrate 0.5 Tablet (of 25 mg) Oral b.i.d. Plavix 1 Tablet (of 75 mg) Oral daily Probiotic Capsule Oral PRN Family History: Ms. Clark's mother at age 84: emphysema, and congestive heart failure. Ms. Clark's father at age 53: heart disease, and myocardial infarction. Ms. Clark has 2 brothers: 1 alive, 1 . Ms. Clark's first brother's colon cancer, and type ii diabetes. Another brother's colon cancer. She has 2 sisters: 2 alive. Ms. Clark's first sister's herat disease, and type ii diabetes. Father of heart attack age 51. Mother with emphysema at age 78. She also had heart disease and diabetes. A sister has diabetes and heart disease. A brother has diabetes and he has been treated for colon cancer. A maternal uncle also had colon cancer, and a maternal aunt had breast cancer. 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 Ms. Clark has never smoked. She drinks occasionally. She is a nonsmoker. She has had just rare alcohol use. Review Of Symptoms: Constitutional Denies fevers, chills, night sweats. Eyes Denies significant visual changes. No diplopia. No amaurosis. see above ENMT Denies changes in hearing, sore throat, mouth sores, difficulty or changes in swallowing ability, and/or sinus drainage. Hematologic/Lymphatic Denies easy bruising or bleeding. The patient denies any tender or palpable lymph nodes. Respiratory Denies any new dyspnea on exertion, chest pain, cough or hemoptysis. Denies orthopnea. Cardiovascular Denies anginal chest pain, palpitations or orthopnea. Gastrointestinal Denies nausea, vomiting, GI bleeding, or constipation. Genitourinary (F) No hematuria, hesitancy, incontinence, vaginal bleeding, discharge or other problems with urination. Musculoskeletal see above Integumentary Denies chronic rashes, inflammation, ulcerations or skin changes. Neurologic Denies headache, blurred vision, and no areas of focal weakness or numbness. Normal gait. No sensory problems. Psychiatric Denies insomnia, depression, olivia or mood swings. Vital Signs: Performed on Feb 11, 2021 11:58 Height - 63.50 in Weight - 201.2 lbs (HIGH) BSA - 1.95 sq.m BMI - 35.08 (HIGH) Temperature - 97.9 F (LOW) Pulse - 73 /min Respiration - 19 /min BP - 127/78 mm(hg) O2 Sat - 96 % Pain - 6,1 - No physically strenuous activity, but ambulatory and able to carry out light or sedentary work (e.g. office work, light house work). (ECOG) Physical Examination: Constitutional Alert, oriented, no acute distress. Skin pink, warm and dry. Head Normocephalic; atraumatic. Posterior scalp wound is healing well without exudate or redness. It remains open-covered with dressing. It has improved since I saw it last-months ago. Eyes Conjunctivae and sclerae are clear and without icterus. Pupils are reactive and equal. Hematologic/Lymphatic No petechiae or purpura. No tender or palpable lymph nodes in the cervical or supraclavicular areas. Respiratory Lungs are clear to auscultation without rhonchi or wheezing. Cardiovascular Regular rate and rhythm of heart without murmurs,clicks, gallops or rubs. Chest left sided port-unremarkable. Abdomen Non-tender, non-distended, no masses, ascites. .Good bowel sounds noted in all quads. No guarding or rebound tenderness. No pulsatile masses. Back/Spine Non-tender to palpation. Extremities No visible deformities, no cyanosis, clubbing or edema. Musculoskeletal No tenderness or swelling. Integumentary No rashes or lesions. Neurologic No sensory or motor deficits, normal cerebellar function, normal-slow gait. Psychiatric Alert and oriented times three. Coherent speech. Verbalizes understanding of our discussions today. Laboratory:Test performed on Feb 11, 2021 10:30 LDH (Total) 128 U/L Sodium 138 mmol/L Potassium 3.6 mmol/L Chloride 102 mmol/L CO2 30 mmol/L Anion Gap 9.6 BUN 17 mg/dL Creatinine 1.1 mg/dL Cr Clearance (Est) 65.9100 mL/min eGFR 49.1 mL/min Glucose 76 mg/dL Osmolality - Calculated 286 mOsm/kg Calcium 9.0 mg/dL Protein, Total 5.9 g/dL Albumin 3.6 g/dL Globulin 2.3 g/dL Bilirubin, Total 0.2 mg/dL ALT (SGPT) 20 U/L AST (SGOT) 28 U/L Alkaline Phosphatase 104 IU/L ESR (Sed Rate) 17 mm/hr WBC 7.1 10 3/uL RBC 4.46 10 6/uL HGB 12.3 g/dL HCT 38.8 % MCV 87.0 fL MCH 27.6 pg MCHC 31.7 g/dL RDW 14.5 % Platelet Count 224 10 3/cmm MPV 11.8 fL Neutrophils 2.68 10 3/uL Lymphocytes 3.4 10 3/uL Monocytes 0.8 10 3/uL Eosinophils 0.1 10 3/uL Basophils 0.1 10 3/uL Neutrophil % 37.8 % Lymphocyte % 47.5 % Monocyte % 11.9 % Eosinophil % 1.1 % Basophils % 1.6 % NRBC % 0 % Bardolph Free Light Chains 18.2 mg/L Lambda Free Light Chains 41.3 mg/L Bardolph/Lambda Free Ratio 0.44 Test performed on Dec 06, 2020 13:10 IgG 451 mg/dL IgA 27 mg/dL IgM 14 mg/dL Impression: 1. IgG lambda myeloma presenting with plasmacytoma involving the right parietal-occipital extra-axial space. She underwent resection/open biopsy of the extracranial portion of the mass on 07/20/2018. 2. She has persistent open wound at the biopsy site. 3. She has had thromboembolism with pulmonary emboli documented by CT pulmonary angiogram on 09/14/2018 and with left upper extremity deep vein thrombosis in October 2020. She required hospitalization in November 2020 for revascularization of the left innominate vein and manual thrombectomy of the left subclavian vein. 4. Degenerative arthritis and degenerative disease of the spine with associated cervical and lumbar spinal stenosis. 5. Hypertension. 6. Endometriosis. 7. Anxiety/depression. Plan: 1. Patient with IgG lambda myeloma presenting with plasmacytoma involving the right parietal-occipital extra-axial space. She underwent resection/open biopsy of the extracranial portion of the mass on 07/20/2018. She then underwent radiation, completed on 09/02/2018 to a total dose of 5000 cGy. She had associated IgG lambda monoclonal protein in the serum and 2% monoclonal plasma cells in the bone marrow, consistent with underlying myeloma. Initially it appeared to otherwise not be symptomatic, and she was followed expectantly following completion of the radiation. By January 2019 she had developed increasing pain in the left hip/buttock area. Her repeat protein electrophoresis studies showed only a slight increase in her M protein, but her repeat PET/CT on 02/03/2019 showed significant progression of lytic bone involvement in the left ilium. There was also possible involvement in the distal right femur. The area of lytic involvement in the calvarium was not metabolically active. On 02/23/2019 she began cycle 1 of Velcade/Revlimid/dexamethasone. She also was given an infusion of Zometa for the lytic bone involvement. She had multiple toxicities with the treatment, requiring dose reductions and treatment delays. As of July 2019 her treatment was stopped and she subsequently transitioned to maintenance Revlimid at 5 mg daily. During subsequent follow-up she began treatment for both B12 deficiency and iron deficiency. In November 2019 she was given parenteral iron replacement with Injectafer, and she also began treatment with denosumab for the lytic bone involvement. On 12/06/2019 she was admitted to the hospital with symptomatic hypocalcemia. She also had hypokalemia and hypophosphatemia. It was uncertain to what extent those abnormalities were due to the Injectafer, to the denosumab, or both. However, she continued to have persistent symptomatic hypocalemia and hypophosphatemia requiring prolonged IV and oral replacement therapy. She eventually recovered, but during that time her maintenance Revlimid had been stopped. As of January 2020 her protein electrophoresis studies had shown evidence of progression of her myeloma with increasing free lambda light chain and her restaging PET/CT in February also showed findings suspicious for disease progression. She did not appear to be overtly symptomatic, but with evidence of disease progression, she was recommended to begin second line treatment with daratumumab/dexamethasone. She was able to tolerate the daratumumab/dexamethasone with acceptable toxicity, but as of May 2020 her repeat had MRI showed significant worsening of calvarial lesions, consistent with disease progression. She then continued daratumumab and dexamethasone with addition of pomalidomide beginning in June 2020. She tolerated the treatment very poorly due to [employer]OO[employer]ING [employer]PER[employer] side effects. Her repeat PET/CT on 07/12/2020 showed a large lytic lesion within the posterior right calvarium, but without associated hypermetabolism. There were no new lesions identified within the calvarium. There was persistent hypermetabolism noted within the proximal right humerus, SUV 3.6, and there was new hypermetabolism within the marrow of the proximal left humerus, SUV 3.6. There was decrease in FDG uptake within the medial left ilium. There was persistent hypermetabolism noted in the right femoral diametaphysis and in the distal left femoral diametaphysis. There was new hypermetabolism noted in the proximal left tibia. Overall the findings were concerning for disease progression. On 08/29/2020 she began a trial of salvage therapy with belantamab mafodotin-blmf. She tolerated the initial infusion with acceptable toxicity, and she continued with cycle 2 on 09/19/2020. Her further clinical course was then complicated by COVID-19 virus infection and by left upper extremity deep vein thrombosis requiring revascularization of the left innominate vein and manual thrombectomy of the left subclavian vein. She then continued with cycle 3 of belantamab mafodotin on 12/28/2020. At this point she continues to have significant fatigue and she also is having pain in different areas, particularly her head, right shoulder, and right rib cage. However, she does appear to be tolerating the belantamab mafodotin with acceptable toxicity. She received her fourth cycle on January 21, 2021. She did have x-rays of her shoulder and arm which reported no acute findings but did report right glenohumeral joint primary osteoarthritis but no evidence of osseous disease. A. We will proceed with cycle 5 belantamab mafodotin today as planned with same dosing. B. Today's labs reviewed in detail and discussed with Ms. Clark and a copy was given to her. WBC 7.1, hemoglobin 12.3, platelets 224,000 her ANC is 2680. Creatinine 1.1 potassium 3.6 random glucose 76 LFTs are normal myeloma labs are pending. Her sed rate is 17. C. I have requested restaging PET CT as her last PET/CT has actually been some time and she is having new symptoms of pain in multiple areas. Her last PET/CT was July 12, 2020. D. I have also asked for an MRI of the head with and without contrast for follow-up of persistent head pain and history of right parietal???occipital region extra-axial space plasmacytoma. Her last MRI was September 10, 2020. 2. She was having postprandial abdominal pain and diarrhea. The cause was uncertain. A. She was unable to provide a stool sample for C. difficile as her stools firmed up and are now normal. She has some occasional abdominal pain but for the most part is resolved. 3. She has had thromboembolism including pulmonary emboli in August 2018 and left upper extremity deep vein thrombosis while on anticoagulation. A. She continues her anticoagulation with apixaban 5 mg twice daily. 4. Follow-up plan A. I have asked for MRI of the head with and without contrast as noted above. B. I have also requested restaging PET CT imaging as noted above. C. We will plan to see her back in 3 weeks with CBC CMP QUIGS, SPEP with ROQUE, and kappa free light chain. D. She will be required to have her [place] monitoring eye exam with Dr. Muñoz 1 to 2 weeks prior to her next scheduled treatment. E. Mrs. Clark was instructed to contact us in the interim should questions or problems arise. F. Total time spent in regards to reviewing her records and plan of care prior to visit as well as answering questions, discussing symptoms and management [id number] with Ms. Clark as well as post visit documentation was 65 minutes. 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 There is currently no exudate, no odor. There is minimal packing. Tissue that is visible is light pink and healthy in appearance. It is remarkably improved since my last exam with her. Signed By: Sue Patel-, AOCNP Ruiz Rodriguez MD <<Signature on File>>
[2021-02-15 01:39] LABS: CARDIOLIPIN AB (IGA) <11 APL; CARDIOLIPIN AB (IGG) <14 GPL; CARDIOLIPIN AB (IGM) <12 MPL
== END 2021-02-11 05:54 | disposition home or self-care (01) ==
LOC: ONCMED 05:56
PROVIDERS: Internal Medicine Medical Oncology; PCP Electrodiagnostic Medicine; Visit Provider Nurse Practitioner
DX: Z51.12 Encounter for antineoplastic immunotherapy (principal); C90.00 Multiple myeloma not having achieved remission; R51.9 Headache, unspecified; M25.511 Pain in right shoulder; R07.81 Pleurodynia; R10.9 Unspecified abdominal pain; Z79.899 Other long term (current) drug therapy; Z86.711 Personal history of pulmonary embolism; Z79.01 Long term (current) use of anticoagulants; Z92.3 Personal history of irradiation
CPT/HCPCS: 80053; 83615; 83883; 84155; 84165; 85025; 85651; 86147; 96375; 96413; 99215; C9069; J1200; J2405; J7050

== ENCOUNTER 2021-02-21 13:47 | Outpatient (CLI) | payer MEDICARE, SELFPAY | END 2021-02-21 13:48 | disposition home or self-care (01) | LOC: WOUND 13:49 | PROVIDERS: PCP Electrodiagnostic Medicine; Visit Provider Thoracic Surgery (Cardiothoracic Vascular Surgery) | DX: L59.8 Other specified disorders of the skin and subcutaneous tissue related to radiation (principal); Y84.2 Radiological procedure and radiotherapy as the cause of abnormal reaction of the patient, or of later complication, without mention of misadventure at the time of the procedure; Y78.1 Therapeutic (nonsurgical) and rehabilitative radiological devices associated with adverse incidents | CPT/HCPCS: 97597 ==

== ENCOUNTER → 2021-02-25 09:34 | Outpatient (BNVA) | payer MEDICARE, SELFPAY | PROVIDERS: PCP Electrodiagnostic Medicine; Visit Provider Podiatrist Foot & Ankle Surgery | DX: M25.571 Pain in right ankle and joints of right foot (principal); M77.31 Calcaneal spur, right foot | CPT/HCPCS: 73610 ==

== ENCOUNTER 2021-02-26 07:54 | Outpatient (CLI) | payer MEDICARE, SELFPAY ==
--- NOTE | 2021-02-26 08:06 | MR_ITS ---
WS: [id number] MRI HEAD WITH CONTRAST TECHNIQUE: Sagittal T1, T2 axial, T2 axial FLAIR, axial susceptibility weighted imaging, axial diffus ion weighted images, and coronal T2 images were obtained. Pre and post-T1 axial and post T1 coronal i mages. ADC and FSPGR images. CLINICAL INFORMATION: MULTIPLE MYELOMA COMPARISON: MRI 09/10/2020 and 06/05/2020. February 01, 2020 FINDINGS: Prior postoperative changes right parietal craniectomy with postoperative enhancement involving the u nderlying resection cavity. This is unchanged since September 10, 2020. No evidence of increasing edema or mass effect. No evidence of progressive parenchymal disease. Again seen are multiple enhancing ca lvarial lesions bilaterally similar to the prior examination. Largest in the right parietal calvarium measuring 1.8 cm unchanged. No evidence of restricted diffusion to suggest acute ischemia. Ventricular system and basal cisterns are patent. Moderate small vessel changes with moderate parenchymal volume loss. Small vessel changes in the ritu. 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 Chronic lacunar infarcts in the cerebellum. Normal vascular flow voids at the skull base. No extra-ax ial fluid collections. Mild mucosal thickening in the mastoid air cells. Paranasal sinuses are well a erated. MR/MR head wo/w con [id number] IMPRESSION: 1. Prior postoperative changes right parietal occipital craniectomy with soft tissue scalp defect unchanged. 2. No evidence of recurrent or progressed disease. Stable enhancement about th e resection cavity is similar in appearance to the prior examination. 3. Multiple stable enhancing myelomatous lesions involving the underlying calv arium largest in the right parietal calvarium measuring 1.8 cm unchanged. 4. 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 5. No other significant changes from previous.
[2021-02-26] MEDS: gadobenate dimeglumine 20 mL vial IV (08:45)
== END 2021-02-26 07:55 | disposition home or self-care (01) ==
PROVIDERS: PCP Electrodiagnostic Medicine; Visit Provider Nurse Practitioner
DX: C90.00 Multiple myeloma not having achieved remission (principal); I63.9 Cerebral infarction, unspecified; G93.89 Other specified disorders of brain
CPT/HCPCS: 70553; A9577

== ENCOUNTER 2021-03-04 09:59 | Outpatient (CLI) | payer MEDICARE, SELFPAY ==
[2021-03-04 10:36] LABS: Basophils # 0.1 10^3/uL (0.0-0.1); Basophils % 1.8 %; Eosinophils # 0.1 10^3/uL (0.0-0.8); Eosinophils % 1.6 %; Hematocrit 40.2 % (37.0-47.0); Hemoglobin 12.7 g/dL (11.5-15.3); Lymphocytes # 2.2 10^3/uL (0.8-4.8); Lymphocytes % 39.6 %; Mean Corpuscular HGB Conc 31.6 g/dL (30.0-36.0); Mean Corpuscular Volume 85.5 fL (81-99); Mean Platelet Volume 12.1 fL (7.4-10.4); Monocytes # 0.7 10^3/uL (0.2-0.9); Monocytes % 12.3 %; Neutrophils # 2.47 10^3/uL (1.8-7.7); Neutrophils % 44.5 %; Nucleated Red Blood Cells % 0 %; Platelet Count 199 10^3/cmm (130-400); Red Cell Distribution Width 15.3 % (12.1-15.1); White Blood Count 5.6 10^3/uL (4.0-10.0)
[2021-03-05 08:14] LABS: PROTEIN, TOTAL 5.3 g/dL (6.1-8.1)
[2021-03-05 12:32] LABS: KAPPA LIGHT CHAIN, FREE, SERUM 17.9 mg/L (3.3-19.4); KAPPA/LAMBDA LIGHT CHAINS FREE 0.74 (0.26-1.65); LAMBDA LIGHT CHAIN, FREE, SERU 24.3 mg/L (5.7-26.3)
[2021-03-05 16:23] LABS: ABNORMAL PROTEIN BAND 1 0.2 g/dL (NONE DETECTED); ALBUMIN 3.1 g/dL (3.8-4.8); ALPHA 1 GLOBULIN 0.3 g/dL (0.2-0.3); ALPHA 2 GLOBULIN 0.9 g/dL (0.5-0.9); BETA 1 GLOBULIN 0.4 g/dL (0.4-0.6); BETA 2 GLOBULIN 0.3 g/dL (0.2-0.5); GAMMA GLOBULIN 0.4 g/dL (0.8-1.7)
[2021-03-08 00:58] LABS: CARDIOLIPIN AB (IGA) <11 APL; CARDIOLIPIN AB (IGG) <14 GPL; CARDIOLIPIN AB (IGM) <12 MPL
--- NOTE | 2021-03-16 16:36 | ONC FU_ITS ---
[facility] Patient Note Patient: Valentin Clark Unit #: [id number]: 1950 Dictated By: Sue PatelDate of Visit: Mar 04, 2021 Onc MED Follow-Up/Prog Note Chief Complaint: Mulitple myeloma. 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 In March 2018 she had bumped her head at work and in the process of that she became aware of a small lump, though it was actually in a slightly different area. She then noticed that the lump was getting larger. Evaluation with head MRI on 06/07/2018 showed evidence of a right parietal occipital extra-axial neoplasm, felt to be most likely meningeal in origin. It was noted to exert mass effect on the right parietal and occipital lobes, but without associated midline shift or white matter parenchymal edema. The lesion was noted to invade through the calvarium and into the subcutaneous parietal occipital scalp soft tissues. The mass measured 5.7 x 3.5 x 6 cm. 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 The area of occlusion was noted to extend over approximately 4.3 cm. She was seen by Dr. Landry and subsequently referred for neurosurgery evaluation at [facility]. Initially they had considered possible surgical resection. Her further evaluation there apparently included laboratory findings which were suspicious for myeloma, and it was recommended that she have treatment with radiation. She was seen here for further management on 07/14/2018. She then returned to Dr. Landry, and on 07/20/2018 she underwent open biopsy/resection of the extracranial extent of the mass. 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 Her further evaluation included protein electrophoresis which showed an IgG lambda monoclonal protein in the serum quantitating at 0.48 g/dL. The serum free light chain assay showed elevated lambda light chain at 374.65 mg/L with decreased kappa/lambda ratio at 0.06. The 24-hour urine protein electrophoresis showed no monoclonal protein. There were no other areas of lytic bone involvement noted on her skeletal survey. Bone marrow aspiration/biopsy on 07/30/2018 showed a monotypic plasma cell population, but it comprised only 2% of the total cellularity. A FISH panel for myeloma was unrevealing, and the standard chromosome analysis was normal. She was referred to Dr. Kaur, and she began radiation to the lesion on 07/30/2018. She completed treatment on 09/02/2018 to a total dose of 5,000 cGy. She had evaluation with CT pulmonary angiogram on 09/14/2018. It showed moderate bilateral pulmonary embolic burden. She began on anticoagulation with apixaban. During her subsequent follow-up she continued to have an open wound at the site of the plasmacytoma in the parietal-occipital scalp region. As of her follow-up visit on 10/19/2018 her M protein was stable 0.37 g/dL. In the absence of any evidence of symptomatic myeloma, she had otherwise just continued on observation/expectant management. However, due to her persistent scalp wound she had a repeat brain MRI on 01/11/2019. It showed evidence of residual neoplastic process at the resection site. There was associated dural involvement but with improved signal characteristics and decreased enhancement compared to the study from September 2018. She was seen for a follow-up visit on 01/20/2019. In view of the MRI findings, she had further evaluation with PET/CT on 02/03/2019. It showed increase in size and expansile hypermetabolic lesion within the left ilium with extension of hypermetabolic tumor into the adjacent left iliac muscle. There was a new hypermetabolic lytic process within the right S1/S2 region. A large lytic mass within the posterior calvarium did not appear to have active hypermetabolism. Also noted, though, was a hypermetabolic lesion within the medullary canal of the distal left femoral diametaphysis and an additional hypermetabolic focus in the anterior cortex of the distal right femur concerning for additional areas of myeloma. In the setting of obvious progression of her myeloma, she began treatment with VRd on 02/23/2019. At that time she also received an infusion of IV Zometa for the lytic bone involvement. She experienced multiple toxicities with the VRD regimen, requiring dose reductions and treatment delays. Beginning with cycle 4, and June 2019 the Velcade was dropped from the regimen, and the following month her treatment was put on hold due to multiple toxicities, mainly severe fatigue and excessive somnolence. She was found to have a low B12 level, for which she began on B12 replacement therapy. At her follow-up visit on 11/28/2019 she was still mildly anemic, and transferrin saturation was still low at 17% despite being on oral iron replacement. As such, she was then given parenteral iron replacement with infusions of Injectafer on 11/28/2019 and on 12/05/2019. With the 11/28 visit she also was given denosumab 120 mg by subcutaneous injection for the lytic bone involvement. On 12/06/2019 she was admitted to the hospital with symptomatic hypocalcemia, serum calcium 5.9 mg/dL with albumin 2.9 g/dL. Renal function was stable with creatinine 1.0 mg/dL, but her potassium also was low at 3.2 mmol/L. She was given IV calcium and potassium replacement. She then continued further IV replacement as an outpatient. Despite that she was readmitted to the hospital with hypocalcemia on 12/15/2019. She was discharged home on 12/23/2019. Her evaluation included CT pulmonary angiogram which showed no evidence of pulmonary embolism. There was evidence of cardiomegaly, a small pericardial effusion, and small bilateral pleural effusions. Echocardiogram showed small, hemodynamically insignificant pericardial effusion and normal left ventricular function. She then returned here on 12/27/2019 and she has since then continued IV fluid and electrolyte replacement, daily for the first week and then on Mondays, Wednesdays, and Fridays. Despite that, she continued to feel weak and shaky, and she had ongoing complaints of nausea and anorexia. She continued to require IV fluid and electrolyte replacement but she did show gradual recovery. Her further treatment remained on hold. Repeat protein electrophoresis on 01/16/2020 showed stable M protein at 0.4 g/dL. The serum free light chain assay showed elevated free lambda light chain at 254 mg/L with decreased kappa/lambda ratio at 0.16. There was no monoclonal protein identified in the 24-hour urine protein electrophoresis. Restaging PET/CT on 02/24/2020 showed findings concerning for disease progression with new areas of marrow hypermetabolism within the right proximal humerus and within the bilateral distal femoral diametaphysis. The existing areas of involvement within the left ilium and sacrum showed further decrease in FDG uptake. With those findings, Dr Rodriguez had recommended that she proceed to second line treatment with daratumumab/dexamethasone. She eventually was able to begin her initial infusion of daratumumab on 03/21/2020. Her repeat free light chain assay prior to that showed further increase in the lambda light chain to 537 mg/L with kappa/lambda ratio 0.06. She tolerated the daratumumab with no adverse effects, and she then continued treatment weekly. On 05/03/2020 she underwent EGD and colonoscopy by Dr. Jimenes. The EGD showed no significant abnormal findings, and the colonoscopy showed just 2 small polyps in the rectum. 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 As of 05/09/2020 she had completed her 8th infusion on the weekly schedule, and as of 05/16/2020 she received her 1st of 8 planned infusions at the 2-week interval. Her M protein at that point was stable at 0.4 g/dL. The free light chain assay showed a decrease in the free lambda light chain from 537.42 205.2 mg/L. However, her repeat head MRI on 06/05/2020 showed significant progression of the myelomatous lesions within the skull compared to the study from January 2020. Numerous calvarial lesions were now present, the largest in the right parietal bone measuring 2.2 cm. The postoperative resection site in the posterior right parietal lobe showed significantly more enhancement with slightly more dural enhancement, also suspicious for progression of neoplastic changes. With that finding, she had continued the daratumumab and dexamethasone, but beginning on 06/27/2020 she added pomalidomide at a reduced dosage of 2 mg daily on a 21/28-day schedule. Her repeat PET/CT on 07/12/2020 showed a large lytic lesion within the posterior right calvarium, but without associated hypermetabolism. There were no new lesions identified within the calvarium. There was persistent hypermetabolism noted within the proximal right humerus, SUV 3.6, and there was new hypermetabolism within the marrow of the proximal left humerus, SUV 3.6. There was decrease in FDG uptake within the medial left ilium. There was persistent hypermetabolism noted in the right femoral diametaphysis and in the distal left femoral diametaphysis. There was new hypermetabolism noted in the proximal left tibia. Overall the findings were concerning for disease progression, and she was recommended to undergo a trial of salvage therapy with belantamab mafodotin-blmf. Her other medical illnesses include hypertension and degenerative arthritis/degenerative disease of the spine. She has associated cervical and lumbar spinal stenosis. She has a history of endometriosis, and she has anxiety/depression. She is a nonsmoker. INTERIM HISTORY: On 08/29/2020 she began cycle 1 of belantamab mafodotin-blmf. She tolerated the initial infusion without acute toxicity. She continued with cycle 2 on 09/19/2020. Her further management was then complicated by COVID-19 virus infection and by left upper extremity deep vein thrombosis for which she underwent revascularization of the left innominate vein and manual thrombectomy of the left subclavian vein. She was able to continue with cycle 3 of belantamab-mafodotin on 12/28/2020. Ms Clark is here today for a scheduled visit. She is due for her 6th cycle of Blenrep. At her follow-up visit prior to her third cycle she had been feeling remarkably better. She did have her eye exam with Dr. Muñoz recently and the right eye showed mild superficial keratopathy with no change from baseline. The left eye shows mild superficial keratopathy with a decline from baseline of 1. Based on the belantamab mafodotin dosing adjustments for acute toxicity grade 1 from baseline on the corneal adverse reaction scale the recommended dose of modifications were to continue the current dose. She is having concerns with her vision. She states she has extreme sensitivity . She states it started after her last treatment and seems to be getting worse. She states the sunlight bothers her tremendously even with wearing her sunglasses. She states that her left eye prescription has changed considerably in a month. She states she does have occasional cough. She has some heaviness in her chest with her cough has been nonproductive and she is had no hemoptysis. She states that she noticed this after she had her second [place] COVID-19 vaccine. She has had diarrhea after treatment up to 4-5 times a day. She states that she has been using Imodium off and on but has not yet tried Lomotil. She states she has had some right hip pain and right sided lower back pain. She states it comes and goes. Thus far it is not impacted her mobility. She states it does not seem to be in particular relation with activity or rest. She has had no recent trauma. She states the pain is stable today. She denies any bowel or bladder changes. she denies any chest pain or palpitations. She denies orthopnea. She has not have fever or chills or any recent signs of infection. Her ECOG is 1. Past Medical History: Anxiety/depression Cervical stenosis Degenerative arthritis Degenerative disease of the spine Depression Endometriosis Hypertension Lumbar stenosis DVT LEFT INTERNAL JUGLAR, LEFT SUBCLAVIAN in 2019 COVID 19 + in 2019 Past Surgical History: Bilateral cataract excisions Cholecystectomy/gastric stapling Removal of ovarian cyst x 2 Tonsillectomy Covid vaccine #2 in 2020 COVID 19 1st in 2020 Angioplasty/stenting of the L innominate vein in 2020 Endovascular revascularization of left upper extremity veins and central veins-[facility] in 2020 Percutaneous mechanical thrombectomy of the L subclavian vein-[facility] in 2020 Left subclavian venous access device???Dr. Soriano[facility] in 2019 Allergies: BusPIRone HCl, Codeine and Related, Levaquin, and Morphine Derivatives. Medications: Acetaminophen 2 Tablet (of 500 mg) Oral PRN B-12 Dots 1 Tablet (of 500 mcg) Tablet Dispersable Oral daily Bisacodyl 1 Tablet (of 5 mg) Tablet, enteric coated Oral daily Eliquis 1 Tablet (of 5 mg) Oral b.i.d. FLUoxetine HCl 1 Tablet (of 10 mg) Oral daily FLUoxetine HCl 1 Capsule (of 20 mg) Oral daily LORazepam 1 Tablet (of 0.5 mg) Oral b.i.d. PRN Metoprolol Tartrate 0.5 Tablet (of 25 mg) Oral b.i.d. Plavix 1 Tablet (of 75 mg) Oral daily Probiotic Capsule Oral PRN Family History: Ms. Clark's mother at age 84: emphysema, and congestive heart failure. Ms. Clark's father at age 53: heart disease, and myocardial infarction. Ms. Clark has 2 brothers: 1 alive, 1 . Ms. Clark's first brother's colon cancer, and type ii diabetes. Another brother's colon cancer. She has 2 sisters: 2 alive. Ms. Clark's first sister's herat disease, and type ii diabetes. Father of heart attack age 51. Mother with emphysema at age 78. She also had heart disease and diabetes. A sister has diabetes and heart disease. A brother has diabetes and he has been treated for colon cancer. A maternal uncle also had colon cancer, and a maternal aunt had breast cancer. 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 Ms. Clark has never smoked. She drinks occasionally. She is a nonsmoker. She has had just rare alcohol use. Review Of Symptoms: Vital Signs: Performed on Mar 04, 2021 11:35 Height - 63.50 in Weight - 197.6 lbs (LOW) BSA - 1.93 sq.m BMI - 34.45 (HIGH) Temperature - 98.8 F Pulse - 62 /min Respiration - 18 /min BP - 122/78 mm(hg) O2 Sat - 96 % Pain - 6 Fatigue - 10,1 - No physically strenuous activity, but ambulatory and able to carry out light or sedentary work (e.g. office work, light house work). (ECOG) Physical Examination: Constitutional Alert, oriented, no acute distress. Skin pink, warm and dry. Head Normocephalic; atraumatic. Posterior scalp wound is healing well without exudate or redness. It remains open-covered with dressing. It has significantly improved over the last 4-6 weeks. Eyes Conjunctivae and sclerae are clear and without icterus. Pupils are reactive and equal. Neck Supple without masses or thyromegaly. No jugular venous distension. Hematologic/Lymphatic No petechiae or purpura. No tender or palpable lymph nodes in the cervical or supraclavicular areas. Respiratory Lungs are clear to auscultation without rhonchi or wheezing. Cardiovascular Regular rate and rhythm of heart without murmurs,clicks, gallops or rubs. Chest left sided port-unremarkable. Abdomen Non-tender, non-distended, no masses, ascites. .Good bowel sounds noted in all quads. No guarding or rebound tenderness. No pulsatile masses. Back/Spine Non-tender to palpation. Extremities No visible deformities, no cyanosis, clubbing or edema. Musculoskeletal No tenderness or swelling. Integumentary No rashes or lesions. Neurologic No sensory or motor deficits, normal cerebellar function, normal-slow gait. Psychiatric Alert and oriented times three. Coherent speech. Verbalizes understanding of our discussions today. Laboratory:Test performed on Mar 04, 2021 10:20 WBC 5.6 10 3/uL RBC 4.70 10 6/uL HGB 12.7 g/dL HCT 40.2 % MCV 85.5 fL MCH 27.0 pg MCHC 31.6 g/dL RDW 15.3 % Platelet Count 199 10 3/cmm MPV 12.1 fL Neutrophils 2.47 10 3/uL Lymphocytes 2.2 10 3/uL Monocytes 0.7 10 3/uL Eosinophils 0.1 10 3/uL Basophils 0.1 10 3/uL Neutrophil % 44.5 % Lymphocyte % 39.6 % Monocyte % 12.3 % Eosinophil % 1.6 % Basophils % 1.8 % NRBC % 0 % [place] Free Light Chains 17.9 mg/L Lambda Free Light Chains 24.3 mg/L [place]/Lambda Free Ratio 0.74 Test performed on Feb 11, 2021 10:30 LDH (Total) 128 U/L Sodium 138 mmol/L Potassium 3.6 mmol/L Chloride 102 mmol/L CO2 30 mmol/L Anion Gap 9.6 BUN 17 mg/dL Creatinine 1.1 mg/dL Cr Clearance (Est) 65.9100 mL/min eGFR 49.1 mL/min Glucose 76 mg/dL Osmolality - Calculated 286 mOsm/kg Calcium 9.0 mg/dL Protein, Total 5.9 g/dL Albumin 3.6 g/dL Globulin 2.3 g/dL Bilirubin, Total 0.2 mg/dL ALT (SGPT) 20 U/L AST (SGOT) 28 U/L Alkaline Phosphatase 104 IU/L ESR (Sed Rate) 17 mm/hr Test performed on Dec 06, 2020 13:10 IgG 451 mg/dL IgA 27 mg/dL IgM 14 mg/dL Impression: 1. IgG lambda myeloma presenting with plasmacytoma involving the right parietal-occipital extra-axial space. She underwent resection/open biopsy of the extracranial portion of the mass on 07/20/2018. 2. She has persistent open wound at the biopsy site. 3. She has had thromboembolism with pulmonary emboli documented by CT pulmonary angiogram on 09/14/2018 and with left upper extremity deep vein thrombosis in October 2020. She required hospitalization in November 2020 for revascularization of the left innominate vein and manual thrombectomy of the left subclavian vein. 4. Degenerative arthritis and degenerative disease of the spine with associated cervical and lumbar spinal stenosis. 5. Hypertension. 6. Endometriosis. 7. Anxiety/depression. Plan: 1. Patient with IgG lambda myeloma presenting with plasmacytoma involving the right parietal-occipital extra-axial space. She underwent resection/open biopsy of the extracranial portion of the mass on 07/20/2018. She then underwent radiation, completed on 09/02/2018 to a total dose of 5000 cGy. She had associated IgG lambda monoclonal protein in the serum and 2% monoclonal plasma cells in the bone marrow, consistent with underlying myeloma. Initially it appeared to otherwise not be symptomatic, and she was followed expectantly following completion of the radiation. By January 2019 she had developed increasing pain in the left hip/buttock area. Her repeat protein electrophoresis studies showed only a slight increase in her M protein, but her repeat PET/CT on 02/03/2019 showed significant progression of lytic bone involvement in the left ilium. There was also possible involvement in the distal right femur. The area of lytic involvement in the calvarium was not metabolically active. On 02/23/2019 she began cycle 1 of Velcade/Revlimid/dexamethasone. She also was given an infusion of Zometa for the lytic bone involvement. She had multiple toxicities with the treatment, requiring dose reductions and treatment delays. As of July 2019 her treatment was stopped and she subsequently transitioned to maintenance Revlimid at 5 mg daily. During subsequent follow-up she began treatment for both B12 deficiency and iron deficiency. In November 2019 she was given parenteral iron replacement with Injectafer, and she also began treatment with denosumab for the lytic bone involvement. On 12/06/2019 she was admitted to the hospital with symptomatic hypocalcemia. She also had hypokalemia and hypophosphatemia. It was uncertain to what extent those abnormalities were due to the Injectafer, to the denosumab, or both. However, she continued to have persistent symptomatic hypocalemia and hypophosphatemia requiring prolonged IV and oral replacement therapy. She eventually recovered, but during that time her maintenance Revlimid had been stopped. As of January 2020 her protein electrophoresis studies had shown evidence of progression of her myeloma with increasing free lambda light chain and her restaging PET/CT in February also showed findings suspicious for disease progression. She did not appear to be overtly symptomatic, but with evidence of disease progression, she was recommended to begin second line treatment with daratumumab/dexamethasone. She was able to tolerate the daratumumab/dexamethasone with acceptable toxicity, but as of May 2020 her repeat had MRI showed significant worsening of calvarial lesions, consistent with disease progression. She then continued daratumumab and dexamethasone with addition of pomalidomide beginning in June 2020. She tolerated the treatment very poorly due to [employer] side effects. Her repeat PET/CT on 07/12/2020 showed a large lytic lesion within the posterior right calvarium, but without associated hypermetabolism. There were no new lesions identified within the calvarium. There was persistent hypermetabolism noted within the proximal right humerus, SUV 3.6, and there was new hypermetabolism within the marrow of the proximal left humerus, SUV 3.6. There was decrease in FDG uptake within the medial left ilium. There was persistent hypermetabolism noted in the right femoral diametaphysis and in the distal left femoral diametaphysis. There was new hypermetabolism noted in the proximal left tibia. Overall the findings were concerning for disease progression. On 08/29/2020 she began a trial of salvage therapy with belantamab mafodotin-blmf. She tolerated the initial infusion with acceptable toxicity, and she continued with cycle 2 on 09/19/2020. Her further clinical course was then complicated by COVID-19 virus infection and by left upper extremity deep vein thrombosis requiring revascularization of the left innominate vein and manual thrombectomy of the left subclavian vein. She then continued with cycle 3 of belantamab mafodotin on 12/28/2020. She continues to have significant fatigue and she also is having pain in different areas, particularly her head, right shoulder, and right rib cage. However, she does appear to be tolerating the belantamab mafodotin with acceptable toxicity. She received her fourth cycle on January 21, 2021. She did have x-rays of her shoulder and arm which reported no acute findings but did report right glenohumeral joint primary osteoarthritis but no evidence of osseous disease. She presents today with stated vision changes. Her previous eye exam per Dr. Muñoz's office did not detect significant changes on her exam but Ms. Clark reports that Dr. Muñoz said it was really borderline . She is having extreme eye sensitivity especially to sunlight. A. We HOLD cycle 6 belantamab mafodotin today due to vision changes reported by Ms Clark. B. Today's labs reviewed in detail and discussed with Ms. Clark and a copy was given to her. WBC 5.6, hemoglobin 12.7, platelets 199,000 ANC is 2500. On February 11, 2021 her abnormal protein on the protein electrophoresis was reported at 0.2 compared to 0.2 on the December 28, 2020 report. C. MRI of the head from 02/26/2021 reports prior postoperative changes in the right parietal occipital craniectomy with soft tissue scalp defect unchanged. No evidence of recurrent or progressive disease. Stable enhancement about the resection cavity is similar in appearance to the prior exam. Multiple stable enhancing myelomatous lesions involving the underlying calvarium largest in the right parietal calvarium measuring 1.8 cm???unchanged. 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 No other significant changes from previous exam. D. She is awaiting PET scan to be scheduled. 2. She has had thromboembolism including pulmonary emboli in August 2018 and left upper extremity deep vein thrombosis while on anticoagulation. A. She continues her anticoagulation with apixaban 5 mg twice daily. 4. Follow-up plan A. I have also requested restaging PET CT imaging as noted above. B. We will plan to see her back in 3 weeks with CBC CMP QUIGS, SPEP with ROQUE, and kappa free light chain. C. She will be required to have her [place] monitoring eye exam with Dr. Muñoz 1 to 2 weeks prior to her next scheduled treatment. E. Mrs. Clark was instructed to contact us in the interim should questions or problems arise. F. Total time spent in regards to reviewing her records and plan of care prior to visit as well as answering questions, discussing symptoms and management [id number] with Ms. Clark as well as post visit documentation was 55 minutes. Signed By: Sue Patel-, [facility] Ruiz Rodriguez MD <<Signature on File>>
== END 2021-03-04 10:00 | disposition home or self-care (01) ==
LOC: ONCMED 10:01
PROVIDERS: PCP Electrodiagnostic Medicine; Visit Provider Nurse Practitioner
DX: C90.00 Multiple myeloma not having achieved remission (principal); I82.B22 Chronic embolism and thrombosis of left subclavian vein; M50.30 Other cervical disc degeneration, unspecified cervical region; M51.36 Other intervertebral disc degeneration, lumbar region; M48.061 Spinal stenosis, lumbar region without neurogenic claudication; I10 Essential (primary) hypertension; N80.9 Endometriosis, unspecified; F41.9 Anxiety disorder, unspecified; F32.9 Major depressive disorder, single episode, unspecified; Z79.899 Other long term (current) drug therapy
CPT/HCPCS: 36415; 83883; 84155; 84165; 85025; 86147; 99215

== ENCOUNTER 2021-03-07 13:51 | Outpatient (CLI) | payer MEDICARE, SELFPAY | END 2021-03-07 13:52 | disposition home or self-care (01) | LOC: WOUND 13:52 | PROVIDERS: PCP Electrodiagnostic Medicine; Visit Provider Thoracic Surgery (Cardiothoracic Vascular Surgery) | DX: L59.8 Other specified disorders of the skin and subcutaneous tissue related to radiation (principal); Y84.2 Radiological procedure and radiotherapy as the cause of abnormal reaction of the patient, or of later complication, without mention of misadventure at the time of the procedure; Y78.1 Therapeutic (nonsurgical) and rehabilitative radiological devices associated with adverse incidents | CPT/HCPCS: 97597 ==

== ENCOUNTER 2021-03-21 13:14 | Outpatient (CLI) | payer MEDICARE, SELFPAY | END 2021-03-21 13:15 | disposition home or self-care (01) | LOC: WOUND 13:15 | PROVIDERS: PCP Electrodiagnostic Medicine; Visit Provider Thoracic Surgery (Cardiothoracic Vascular Surgery) | DX: L59.8 Other specified disorders of the skin and subcutaneous tissue related to radiation (principal); Y84.2 Radiological procedure and radiotherapy as the cause of abnormal reaction of the patient, or of later complication, without mention of misadventure at the time of the procedure; Y78.1 Therapeutic (nonsurgical) and rehabilitative radiological devices associated with adverse incidents | CPT/HCPCS: 97597 ==

== ENCOUNTER 2021-04-04 09:45 | Outpatient (CLI) | payer MEDICARE, SELFPAY ==
[2021-04-04 11:23] LABS: Basophils # 0.1 10^3/uL (0.0-0.1); Basophils % 2.1 %; Eosinophils # 0.1 10^3/uL (0.0-0.8); Hemoglobin 12.1 g/dL (11.5-15.3); Lymphocytes # 2.2 10^3/uL (0.8-4.8); Mean Corpuscular Hemoglobin 26.8 pg (28.0-34.0); Mean Corpuscular Volume 86.3 fL (81-99); Mean Platelet Volume 11.8 fL (7.4-10.4); Monocytes # 0.8 10^3/uL (0.2-0.9); Monocytes % 13.7 %; Neutrophils # 2.43 10^3/uL (1.8-7.7); Nucleated Red Blood Cells % 0 %; Platelet Count 217 10^3/cmm (130-400); Red Blood Count 4.52 10^6/uL (4.1-5.3); Red Cell Distribution Width 17.5 % (12.1-15.1); White Blood Count 5.6 10^3/uL (4.0-10.0)
[2021-04-04 11:54] LABS: Alanine Aminotransferase 25 U/L (0-33); Albumin Level 3.8 g/dL (3.5-5.2); Alkaline Phosphatase 119 IU/L (35-105); Anion Gap 12.1 (5-19); Aspartate Amino Transferase 39 U/L (0-32); Blood Urea Nitrogen 11 mg/dL (8-23); Calcium 8.8 mg/dL (8.5-10.5); Carbon Dioxide 27 mmol/L (22-29); Chloride 105 mmol/L (98-107); Globulin 1.9 g/dL (1.3-4.6); Glomerular Filtration Rate 70.9 mL/min (90-130); Glucose 92 mg/dL (65-115); Immunoglobulin IGG 412 mg/dL (700-1600); Osmolality Calculated 289 mOsm/kg (285-295); Potassium 4.1 mmol/L (3.5-5.1); Sodium 140 mmol/L (136-145); Total Bilirubin 0.3 mg/dL (0.15-1.2); Total Protein 5.7 g/dL (6.6-8.7)
[2021-04-04 12:08] LABS: Immunoglobulin IGM < 25 mg/dL (40-230)
[2021-04-04 12:09] LABS: Immunoglobulin IGA < 50 mg/dL (70-400)
[2021-04-04 13:38] LABS: Erythrocyte Sedimentation Rate 16 mm/hr (0-15)
--- NOTE | 2021-04-04 19:09 | ONC FU_ITS ---
Dr. Rodriguez Patient Follow-Up Note Patient: Valentin Clark Unit #: [id number]: [id number] Dicatated By: Ruiz Rodriguez M.D.Date of Visit:April 04, 2021 Onc Med Follow-up/Prog Note Chief Complaint: Mulitple myeloma. 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 In March 2018 she had bumped her head at work and in the process of that she became aware of a small lump, though it was actually in a slightly different area. She then noticed that the lump was getting larger. Evaluation with head MRI on 06/07/2018 showed evidence of a right parietal occipital extra-axial neoplasm, felt to be most likely meningeal in origin. It was noted to exert mass effect on the right parietal and occipital lobes, but without associated midline shift or white matter parenchymal edema. The lesion was noted to invade through the calvarium and into the subcutaneous parietal occipital scalp soft tissues. The mass measured 5.7 x 3.5 x 6 cm. 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 The area of occlusion was noted to extend over approximately 4.3 cm. She was seen by Dr. Landry and subsequently referred for neurosurgery evaluation at [facility]. Initially they had considered possible surgical resection. Her further evaluation there apparently included laboratory findings which were suspicious for myeloma, and it was recommended that she have treatment with radiation. She was seen here for further management on 07/14/2018. She then returned to Dr. Landry, and on 07/20/2018 she underwent open biopsy/resection of the extracranial extent of the mass. 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 Her further evaluation included protein electrophoresis which showed an IgG lambda monoclonal protein in the serum quantitating at 0.48 g/dL. The serum free light chain assay showed elevated lambda light chain at 374.65 mg/L with decreased kappa/lambda ratio at 0.06. The 24-hour urine protein electrophoresis showed no monoclonal protein. There were no other areas of lytic bone involvement noted on her skeletal survey. Bone marrow aspiration/biopsy on 07/30/2018 showed a monotypic plasma cell population, but it comprised only 2% of the total cellularity. A FISH panel for myeloma was unrevealing, and the standard chromosome analysis was normal. She was referred to Dr. Kaur, and she began radiation to the lesion on 07/30/2018. She completed treatment on 09/02/2018 to a total dose of 5,000 cGy. She had evaluation with CT pulmonary angiogram on 09/14/2018. It showed moderate bilateral pulmonary embolic burden. She began on anticoagulation with apixaban. During her subsequent follow-up she continued to have an open wound at the site of the plasmacytoma in the parietal-occipital scalp region. As of her follow-up visit on 10/19/2018 her M protein was stable 0.37 g/dL. In the absence of any evidence of symptomatic myeloma, she had otherwise just continued on observation/expectant management. However, due to her persistent scalp wound she had a repeat brain MRI on 01/11/2019. It showed evidence of residual neoplastic process at the resection site. There was associated dural involvement but with improved signal characteristics and decreased enhancement compared to the study from September 2018. She was seen for a follow-up visit on 01/20/2019. In view of the MRI findings, she had further evaluation with PET/CT on 02/03/2019. It showed increase in size and expansile hypermetabolic lesion within the left ilium with extension of hypermetabolic tumor into the adjacent left iliac muscle. There was a new hypermetabolic lytic process within the right S1/S2 region. A large lytic mass within the posterior calvarium did not appear to have active hypermetabolism. Also noted, though, was a hypermetabolic lesion within the medullary canal of the distal left femoral diametaphysis and an additional hypermetabolic focus in the anterior cortex of the distal right femur concerning for additional areas of myeloma. In the setting of obvious progression of her myeloma, she began treatment with VRd on 02/23/2019. At that time she also received an infusion of IV Zometa for the lytic bone involvement. She experienced multiple toxicities with the VRD regimen, requiring dose reductions and treatment delays. Beginning with cycle 4, and June 2019 the Velcade was dropped from the regimen, and the following month her treatment was put on hold due to multiple toxicities, mainly severe fatigue and excessive somnolence. She was found to have a low B12 level, for which she began on B12 replacement therapy. At her follow-up visit on 11/28/2019 she was still mildly anemic, and transferrin saturation was still low at 17% despite being on oral iron replacement. As such, she was then given parenteral iron replacement with infusions of Injectafer on 11/28/2019 and on 12/05/2019. With the 11/28 visit she also was given denosumab 120 mg by subcutaneous injection for the lytic bone involvement. On 12/06/2019 she was admitted to the hospital with symptomatic hypocalcemia, serum calcium 5.9 mg/dL with albumin 2.9 g/dL. Renal function was stable with creatinine 1.0 mg/dL, but her potassium also was low at 3.2 mmol/L. She was given IV calcium and potassium replacement. She then continued further IV replacement as an outpatient. Despite that she was readmitted to the hospital with hypocalcemia on 12/15/2019. She was discharged home on 12/23/2019. Her evaluation included CT pulmonary angiogram which showed no evidence of pulmonary embolism. There was evidence of cardiomegaly, a small pericardial effusion, and small bilateral pleural effusions. Echocardiogram showed small, hemodynamically insignificant pericardial effusion and normal left ventricular function. She then returned here on 12/27/2019 and she has since then continued IV fluid and electrolyte replacement, daily for the first week and then on Mondays, Wednesdays, and Fridays. Despite that, she continued to feel weak and shaky, and she had ongoing complaints of nausea and anorexia. She continued to require IV fluid and electrolyte replacement but she did show gradual recovery. Her further treatment remained on hold. Repeat protein electrophoresis on 01/16/2020 showed stable M protein at 0.4 g/dL. The serum free light chain assay showed elevated free lambda light chain at 254 mg/L with decreased kappa/lambda ratio at 0.16. There was no monoclonal protein identified in the 24-hour urine protein electrophoresis. Restaging PET/CT on 02/24/2020 showed findings concerning for disease progression with new areas of marrow hypermetabolism within the right proximal humerus and within the bilateral distal femoral diametaphysis. The existing areas of involvement within the left ilium and sacrum showed further decrease in FDG uptake. With those findings, I had recommended that she proceed to second line treatment with daratumumab/dexamethasone. She eventually was able to begin her initial infusion of daratumumab on 03/21/2020. Her repeat free light chain assay prior to that showed further increase in the lambda light chain to 537 mg/L with kappa/lambda ratio 0.06. She tolerated the daratumumab with no adverse effects, and she then continued treatment weekly. On 05/03/2020 she underwent EGD and colonoscopy by Dr. Jimenes. The EGD showed no significant abnormal findings, and the colonoscopy showed just 2 small polyps in the rectum. 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 As of 05/09/2020 she had completed her 8th infusion on the weekly schedule, and as of 05/16/2020 she received her 1st of 8 planned infusions at the 2-week interval. Her M protein at that point was stable at 0.4 g/dL. The free light chain assay showed a decrease in the free lambda light chain from 537.42 205.2 mg/L. However, her repeat head MRI on 06/05/2020 showed significant progression of the myelomatous lesions within the skull compared to the study from January 2020. Numerous calvarial lesions were now present, the largest in the right parietal bone measuring 2.2 cm. The postoperative resection site in the posterior right parietal lobe showed significantly more enhancement with slightly more dural enhancement, also suspicious for progression of neoplastic changes. With that finding, she had continued the daratumumab and dexamethasone, but beginning on 06/27/2020 she added pomalidomide at a reduced dosage of 2 mg daily on a 21/28-day schedule. Her repeat PET/CT on 07/12/2020 showed a large lytic lesion within the posterior right calvarium, but without associated hypermetabolism. There were no new lesions identified within the calvarium. There was persistent hypermetabolism noted within the proximal right humerus, SUV 3.6, and there was new hypermetabolism within the marrow of the proximal left humerus, SUV 3.6. There was decrease in FDG uptake within the medial left ilium. There was persistent hypermetabolism noted in the right femoral diametaphysis and in the distal left femoral diametaphysis. There was new hypermetabolism noted in the proximal left tibia. Overall the findings were concerning for disease progression, and she was recommended to undergo a trial of salvage therapy with belantamab [id number]. Her other medical illnesses include hypertension and degenerative arthritis/degenerative disease of the spine. She has associated cervical and lumbar spinal stenosis. She has a history of endometriosis, and she has anxiety/depression. She is a nonsmoker. INTERIM HISTORY: On 08/29/2020 she began cycle 1 of belantamab [id number]. She tolerated the initial infusion without acute toxicity. She continued with cycle 2 on 09/19/2020. Her further management was then complicated by COVID-19 virus infection and by left upper extremity deep vein thrombosis for which she underwent revascularization of the left innominate vein and manual thrombectomy of the left subclavian vein. She was then able to continue the belantamab-mafodotin at 3-week intervals. As of 02/11/2021 she had completed her 5th cycle. Her further treatment was then put on hold due to visual symptoms, though her repeat eye exam in February had shown only grade 1 changes. Restaging PET/CT on 03/15/2021 showed a small focus of increased tracer accumulation in the soft tissues/bone marrow of the right posterior skull with maximum SUV 4.70. That area had not been included on the previous study, so it could not be compared. However, the appearance was consistent with residual myeloma. Also noted was stable mild increased metabolic activity in the left proximal humerus with maximum SUV 3.03. There was no focal increase in the right proximal humerus, noted to have resolved compared to the prior study. Also noted was resolution of previously described metabolic increased activity in the left proximal fibula and in both distal femoral metadiaphyses. Overall the study was noted to be significantly improved. She is seen for a scheduled visit. Her treatment has remained on hold due to her visual symptoms, mainly with her eyes being very light sensitive. Her repeat eye exam still showed only grade 1 changes. She continues to complain that she feels tired, but she is able to do light work. ECOG score is 1. She has good appetite. She has not had fever or night sweats. She does have episodes of sweating during the daytime, mostly after eating. She has allergy related sinus/nasal drainage. She has not had sore mouth or throat. She has cough, she says her breathing is not right. She feels a little tightness in her chest. She also describes having waves of weakness like her legs are going to buckle. She currently has no GI complaints. She has urinary frequency and she recently has developed some swelling in her legs. She has pain in her right shoulder and in her left thumb and she also has back pain. The back pain does tend to get worse with activity. She does not complain of headache or dizziness. She was having numbness/tingling, but that has resolved. Medications: Acetaminophen 2 Tablet (of 500 mg) Oral PRN, Aspirin 1 Tablet (of 81 mg) Tablet, chewable Oral daily, B-12 Dots 1 Tablet (of 500 mcg) Tablet Dispersable Oral daily, Bisacodyl 1 Tablet (of 5 mg) Tablet, enteric coated Oral daily, Claritin 1 Capsule (of 10 mg) Oral daily, [facility] Sodium Chloride 1 Drop(s) (of 5 %) Solution Ophthalmic b.i.d., Eliquis 1 Tablet (of 5 mg) Oral b.i.d., FLUoxetine HCl 1 Tablet (of 10 mg) Oral daily, FLUoxetine HCl 1 Capsule (of 20 mg) Oral daily, Lasix 1 - 2 Tablet (of 40 mg) Oral PRN, Lomotil 2 Tablet (of 2.5-0.025 mg) Oral b.i.d., LORazepam 1 Tablet (of 0.5 mg) Oral b.i.d. PRN, Metoprolol Tartrate 0.5 Tablet (of 25 mg) Oral b.i.d., Probiotic Capsule Oral PRN Allergies: BusPIRone HCl, Codeine and Related, Levaquin, and Morphine Derivatives. Vital Signs: Performed on April 04, 2021 10:13 Height - 63.50 in Weight - 205.6 lbs (HIGH) BSA - 1.97 sq.m BMI - 35.85 (HIGH) Temperature - 97.6 F (LOW) Pulse - 63 /min Respiration - 18 /min BP - 150/82 mm(hg) (HIGH) O2 Sat - 97 % Pain - 6 Fatigue - 4 Physical Examination: Constitutional - She looks pretty good generally, Eyes - Sclerae nonicteric. Conjunctivae clear, ENMT - No lesions noted in the oral cavity, Hematologic/Lymphatic - No cervical, clavicular, or axillary adenopathy, Respiratory - Lungs sound clear, Cardiovascular - Heart rhythm is regular. There is a II/ systolic murmur. There is no gallop or rub noted, Abdomen - Soft. Liver and spleen are not enlarged. There is no abdominal mass or ascites noted and there is no inguinal adenopathy, Back/Spine - There is mild tenderness in the lower thoracic spine area and she has more significant tenderness in the area of the right SI joint, Extremities - Mild lower extremity edema, Integumentary - There is only a small residual open area in her scalp wound, Neurologic - No focal neurologic deficits noted. Lab/Imaging: Test performed on April 04, 2021 11:07 Sodium 140 mmol/L Potassium 4.1 mmol/L Chloride 105 mmol/L CO2 27 mmol/L Anion Gap 12.1 BUN 11 mg/dL Creatinine 0.8 mg/dL Cr Clearance (Est) 90.6200 mL/min eGFR 70.9 mL/min Glucose 92 mg/dL Osmolality - Calculated 289 mOsm/kg Calcium 8.8 mg/dL Protein, Total 5.7 g/dL Albumin 3.8 g/dL Globulin 1.9 g/dL Bilirubin, Total 0.3 mg/dL ALT (SGPT) 25 U/L AST (SGOT) 39 U/L Alkaline Phosphatase 119 IU/L ESR (Sed Rate) 16 mm/hr WBC 5.6 10 3/uL RBC 4.52 10 6/uL HGB 12.1 g/dL HCT 39.0 % MCV 86.3 fL MCH 26.8 pg MCHC 31.0 g/dL RDW 17.5 % Platelet Count 217 10 3/cmm MPV 11.8 fL Neutrophils 2.43 10 3/uL Lymphocytes 2.2 10 3/uL Monocytes 0.8 10 3/uL Eosinophils 0.1 10 3/uL Basophils 0.1 10 3/uL Neutrophil % 43.0 % Lymphocyte % 39.0 % Monocyte % 13.7 % Eosinophil % 2.0 % Basophils % 2.1 % NRBC % 0 % IgG 412 mg/dL IgA < 50 mg/dL IgM < 25 mg/dL Problem List: 1. IgG lambda myeloma presenting with plasmacytoma involving the right parietal-occipital extra-axial space. She underwent resection/open biopsy of the extracranial portion of the mass on 07/20/2018. 2. She has persistent open wound at the biopsy site. 3. She has had thromboembolism with pulmonary emboli documenby CT pulmonary angiogram on 09/14/2018 and with left upper extremity deep vein thrombosis in October 2020. She required hospitalization in November 2020 for revascularization of the left innominate vein and manual thrombectomy of the left subclavian vein. 4. Degenerative arthritis and degenerative disease of the spine with associated cervical and lumbar spinal stenosis. 5. Hypertension. 6. Endometriosis. 7. Anxiety/depression. Problems Addressed with this Encounter and Plan: 1. Patient with IgG lambda myeloma presenting with plasmacytoma involving the right parietal-occipital extra-axial space. She underwent resection/open biopsy of the extracranial portion of the mass on 07/20/2018. She then underwent radiation, completed on 09/02/2018 to a total dose of 5000 cGy. She had associated IgG lambda monoclonal protein in the serum and 2% monoclonal plasma cells in the bone marrow, consistent with underlying myeloma. Initially it appeared to otherwise not be symptomatic, and she was followed expectantly following completion of the radiation. By January 2019 she had developed increasing pain in the left hip/buttock area. Her repeat protein electrophoresis studies showed only a slight increase in her M protein, but her repeat PET/CT on 02/03/2019 showed significant progression of lytic bone involvement in the left ilium. There was also possible involvement in the distal right femur. The area of lytic involvement in the calvarium was not metabolically active. On 02/23/2019 she began cycle 1 of Velcade/Revlimid/dexamethasone. She also was given an infusion of Zometa for the lytic bone involvement. She had multiple toxicities with the treatment, requiring dose reductions and treatment delays. As of July 2019 her treatment was stopped and she subsequently transitioned to maintenance Revlimid at 5 mg daily. During subsequent follow-up she began treatment for both B12 deficiency and iron deficiency. In November 2019 she was given parenteral iron replacement with Injectafer, and she also began treatment with denosumab for the lytic bone involvement. On 12/06/2019 she was admitted to the hospital with symptomatic hypocalcemia. She also had hypokalemia and hypophosphatemia. I was uncertain to what extent those abnormalities were due to the Injectafer, to the denosumab, or both. However, she continued to have persistent symptomatic hypocalemia and hypophosphatemia requiring prolonged IV and oral replacement therapy. She eventually recovered, but during that time her maintenance Revlimid had been stopped. As of January 2020 her protein electrophoresis studies had shown evidence of progression of her myeloma with increasing free lambda light chain and her restaging PET/CT in February also showed findings suspicious for disease progression. She did not appear to be overtly symptomatic, but with evidence of disease progression, she was recommended to begin second line treatment with daratumumab/dexamethasone. She was able to tolerate the daratumumab/dexamethasone with acceptable toxicity, but as of May 2020 her repeat had MRI showed significant worsening of calvarial lesions, consistent with disease progression. She then continued daratumumab and dexamethasone with addition of pomalidomide beginning in June 2020. She tolerated the treatment very poorly due to [employer] side effects. Her repeat PET/CT on 07/12/2020 showed a large lytic lesion within the posterior right calvarium, but without associated hypermetabolism. There were no new lesions identified within the calvarium. There was persistent hypermetabolism noted within the proximal right humerus, SUV 3.6, and there was new hypermetabolism within the marrow of the proximal left humerus, SUV 3.6. There was decrease in FDG uptake within the medial left ilium. There was persistent hypermetabolism noted in the right femoral diametaphysis and in the distal left femoral diametaphysis. There was new hypermetabolism noted in the proximal left tibia. Overall the findings were concerning for disease progression. On 08/29/2020 she began a trial of salvage therapy with belantamab [id number]. She tolerated the initial infusion with acceptable toxicity, and she continued with cycle 2 on 09/19/2020. Her further clinical course was then complicated by COVID-19 virus infection and by left upper extremity deep vein thrombosis requiring revascularization of the left innominate vein and manual thrombectomy of the left subclavian vein. She then continued treatment at 3-week intervals. She completed her 5th cycle on 02/11/2021. Her further treatment was then put on hold due to visual changes, primarily photosensitivity. Her eye exams thus far have shown only grade 1 changes, which is not a contraindication to treatment. She does appear to be showing significant response by follow-up PET/CT on 03/15/2021. However, with her persistent visual symptoms, she prefers to remain off treatment, and I am in agreement with that. Her protein electrophoresis studies are being repeated today, and those results are pending. I will see her again in 1 month. 2. She has had diarrhea. It is now improving with symptomatic management. 3. She has had thromboembolism including pulmonary emboli in August 2018 and left upper extremity deep vein thrombosis while on anticoagulation. She continues her anticoagulation with apixaban 5 mg twice daily. Signed By: Ruiz Rodriguez M.D. <<Signature on File>>
[2021-04-05 08:38] LABS: PROTEIN, TOTAL 5.3 g/dL (6.1-8.1)
[2021-04-05 13:08] LABS: ABNORMAL PROTEIN BAND 1 0.2 g/dL (NONE DETECTED); ALBUMIN 3.3 g/dL (3.8-4.8); ALPHA 1 GLOBULIN 0.2 g/dL (0.2-0.3); ALPHA 2 GLOBULIN 0.8 g/dL (0.5-0.9); BETA 1 GLOBULIN 0.4 g/dL (0.4-0.6); BETA 2 GLOBULIN 0.2 g/dL (0.2-0.5); GAMMA GLOBULIN 0.4 g/dL (0.8-1.7)
[2021-04-05 15:18] LABS: KAPPA LIGHT CHAIN, FREE, SERUM 18.4 mg/L (3.3-19.4); KAPPA/LAMBDA LIGHT CHAINS FREE 0.97 (0.26-1.65); LAMBDA LIGHT CHAIN, FREE, SERU 18.9 mg/L (5.7-26.3)
== END 2021-04-04 09:46 | disposition home or self-care (01) ==
PROVIDERS: PCP Electrodiagnostic Medicine; Visit Provider Internal Medicine Medical Oncology
DX: C90.00 Multiple myeloma not having achieved remission (principal); C79.51 Secondary malignant neoplasm of bone; M47.9 Spondylosis, unspecified; I10 Essential (primary) hypertension; N80.9 Endometriosis, unspecified; F41.9 Anxiety disorder, unspecified; F32.9 Major depressive disorder, single episode, unspecified; Z86.711 Personal history of pulmonary embolism; Z79.01 Long term (current) use of anticoagulants; Z79.899 Other long term (current) drug therapy; Z92.3 Personal history of irradiation
CPT/HCPCS: 36415; 80053; 82784; 83883; 84155; 84165; 85025; 85651; 96523; 99214

== ENCOUNTER 2021-04-04 13:05 | Outpatient (CLI) | payer MEDICARE, SELFPAY | END 2021-04-04 13:06 | disposition home or self-care (01) | LOC: WOUND 13:06 | PROVIDERS: PCP Electrodiagnostic Medicine; Visit Provider Thoracic Surgery (Cardiothoracic Vascular Surgery) | DX: L59.8 Other specified disorders of the skin and subcutaneous tissue related to radiation (principal); Y84.2 Radiological procedure and radiotherapy as the cause of abnormal reaction of the patient, or of later complication, without mention of misadventure at the time of the procedure; Y78.1 Therapeutic (nonsurgical) and rehabilitative radiological devices associated with adverse incidents | CPT/HCPCS: 99212 ==

== ENCOUNTER 2021-05-07 13:57 | Outpatient (CLI) | payer MEDICARE, SELFPAY ==
[2021-05-07 14:46] LABS: Basophils # 0.1 10^3/uL (0.0-0.1); Basophils % 1.4 %; Eosinophils # 0.1 10^3/uL (0.0-0.8); Eosinophils % 1.1 %; Hematocrit 39.2 % (37.0-47.0); Hemoglobin 12.5 g/dL (11.5-15.3); Lymphocytes # 2.1 10^3/uL (0.8-4.8); Lymphocytes % 33.5 %; Mean Corpuscular HGB Conc 31.9 g/dL (30.0-36.0); Mean Corpuscular Volume 87.7 fL (81-99); Mean Platelet Volume 11.3 fL (7.4-10.4); Monocytes # 0.7 10^3/uL (0.2-0.9); Neutrophils # 3.31 10^3/uL (1.8-7.7); Neutrophils % 52.8 %; Nucleated Red Blood Cells % 0 %; Platelet Count 218 10^3/cmm (130-400); Red Blood Count 4.47 10^6/uL (4.1-5.3); Red Cell Distribution Width 17.5 % (12.1-15.1); White Blood Count 6.3 10^3/uL (4.0-10.0)
[2021-05-07 15:09] LABS: Alanine Aminotransferase 13 U/L (0-33); Albumin Level 3.8 g/dL (3.5-5.2); Alkaline Phosphatase 107 IU/L (35-105); Anion Gap 15.5 (5-19); Aspartate Amino Transferase 22 U/L (0-32); Blood Urea Nitrogen 9 mg/dL (8-23); Calcium 9.5 mg/dL (8.5-10.5); Carbon Dioxide 18 mmol/L (22-29); Chloride 107 mmol/L (98-107); Globulin 1.9 g/dL (1.3-4.6); Glomerular Filtration Rate 82.7 mL/min (90-130); Glucose 93 mg/dL (65-115); Immunoglobulin IGG 390 mg/dL (700-1600); Osmolality Calculated 282 mOsm/kg (285-295); Potassium 3.5 mmol/L (3.5-5.1); Sodium 137 mmol/L (136-145); Total Bilirubin 0.3 mg/dL (0.15-1.2); Total Protein 5.7 g/dL (6.6-8.7)
[2021-05-07 15:32] LABS: Immunoglobulin IGA 24 mg/dL (70-400); Immunoglobulin IGM 14 mg/dL (40-230)
[2021-05-08 08:28] LABS: PROTEIN, TOTAL 5.5 g/dL (6.1-8.1)
[2021-05-08 12:22] LABS: KAPPA LIGHT CHAIN, FREE, SERUM 15.8 mg/L (3.3-19.4); KAPPA/LAMBDA LIGHT CHAINS FREE 0.93 (0.26-1.65)
[2021-05-08 13:33] LABS: ABNORMAL PROTEIN BAND 1 0.2 g/dL (NONE DETECTED); ALBUMIN 3.4 g/dL (3.8-4.8); ALPHA 1 GLOBULIN 0.3 g/dL (0.2-0.3); ALPHA 2 GLOBULIN 0.8 g/dL (0.5-0.9); BETA 1 GLOBULIN 0.4 g/dL (0.4-0.6); BETA 2 GLOBULIN 0.2 g/dL (0.2-0.5); GAMMA GLOBULIN 0.4 g/dL (0.8-1.7)
--- NOTE | 2021-05-11 14:02 | ONC FU_ITS ---
Dr. Rodriguez Patient Follow-Up Note Patient: Valentin Clark Unit #: [id number]: 1950 Dicatated By: Ruiz Rodriguez M.D.Date of Visit:May 07, 2021 Onc Med Follow-up/Prog Note Chief Complaint: Mulitple myeloma. 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 In March 2018 she had bumped her head at work and in the process of that she became aware of a small lump, though it was actually in a slightly different area. She then noticed that the lump was getting larger. Evaluation with head MRI on 06/07/2018 showed evidence of a right parietal occipital extra-axial neoplasm, felt to be most likely meningeal in origin. It was noted to exert mass effect on the right parietal and occipital lobes, but without associated midline shift or white matter parenchymal edema. The lesion was noted to invade through the calvarium and into the subcutaneous parietal occipital scalp soft tissues. The mass measured 5.7 x 3.5 x 6 cm. 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 The area of occlusion was noted to extend over approximately 4.3 cm. She was seen by Dr. Landry and subsequently referred for neurosurgery evaluation at [facility]. Initially they had considered possible surgical resection. Her further evaluation there apparently included laboratory findings which were suspicious for myeloma, and it was recommended that she have treatment with radiation. She was seen here for further management on 07/14/2018. She then returned to Dr. Landry, and on 07/20/2018 she underwent open biopsy/resection of the extracranial extent of the mass. 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 Her further evaluation included protein electrophoresis which showed an IgG lambda monoclonal protein in the serum quantitating at 0.48 g/dL. The serum free light chain assay showed elevated lambda light chain at 374.65 mg/L with decreased kappa/lambda ratio at 0.06. The 24-hour urine protein electrophoresis showed no monoclonal protein. There were no other areas of lytic bone involvement noted on her skeletal survey. Bone marrow aspiration/biopsy on 07/30/2018 showed a monotypic plasma cell population, but it comprised only 2% of the total cellularity. A FISH panel for myeloma was unrevealing, and the standard chromosome analysis was normal. She was referred to Dr. Kaur, and she began radiation to the lesion on 07/30/2018. She completed treatment on 09/02/2018 to a total dose of 5,000 cGy. She had evaluation with CT pulmonary angiogram on 09/14/2018. It showed moderate bilateral pulmonary embolic burden. She began on anticoagulation with apixaban. During her subsequent follow-up she continued to have an open wound at the site of the plasmacytoma in the parietal-occipital scalp region. As of her follow-up visit on 10/19/2018 her M protein was stable 0.37 g/dL. In the absence of any evidence of symptomatic myeloma, she had otherwise just continued on observation/expectant management. However, due to her persistent scalp wound she had a repeat brain MRI on 01/11/2019. It showed evidence of residual neoplastic process at the resection site. There was associated dural involvement but with improved signal characteristics and decreased enhancement compared to the study from September 2018. She was seen for a follow-up visit on 01/20/2019. In view of the MRI findings, she had further evaluation with PET/CT on 02/03/2019. It showed increase in size and expansile hypermetabolic lesion within the left ilium with extension of hypermetabolic tumor into the adjacent left iliac muscle. There was a new hypermetabolic lytic process within the right S1/S2 region. A large lytic mass within the posterior calvarium did not appear to have active hypermetabolism. Also noted, though, was a hypermetabolic lesion within the medullary canal of the distal left femoral diametaphysis and an additional hypermetabolic focus in the anterior cortex of the distal right femur concerning for additional areas of myeloma. In the setting of obvious progression of her myeloma, she began treatment with VRd on 02/23/2019. At that time she also received an infusion of IV Zometa for the lytic bone involvement. She experienced multiple toxicities with the VRD regimen, requiring dose reductions and treatment delays. Beginning with cycle 4, and June 2019 the Velcade was dropped from the regimen, and the following month her treatment was put on hold due to multiple toxicities, mainly severe fatigue and excessive somnolence. She was found to have a low B12 level, for which she began on B12 replacement therapy. At her follow-up visit on 11/28/2019 she was still mildly anemic, and transferrin saturation was still low at 17% despite being on oral iron replacement. As such, she was then given parenteral iron replacement with infusions of Injectafer on 11/28/2019 and on 12/05/2019. With the 11/28 visit she also was given denosumab 120 mg by subcutaneous injection for the lytic bone involvement. On 12/06/2019 she was admitted to the hospital with symptomatic hypocalcemia, serum calcium 5.9 mg/dL with albumin 2.9 g/dL. Renal function was stable with creatinine 1.0 mg/dL, but her potassium also was low at 3.2 mmol/L. She was given IV calcium and potassium replacement. She then continued further IV replacement as an outpatient. Despite that she was readmitted to the hospital with hypocalcemia on 12/15/2019. She was discharged home on 12/23/2019. Her evaluation included CT pulmonary angiogram which showed no evidence of pulmonary embolism. There was evidence of cardiomegaly, a small pericardial effusion, and small bilateral pleural effusions. Echocardiogram showed small, hemodynamically insignificant pericardial effusion and normal left ventricular function. She then returned here on 12/27/2019 and she has since then continued IV fluid and electrolyte replacement, daily for the first week and then on Mondays, Wednesdays, and Fridays. Despite that, she continued to feel weak and shaky, and she had ongoing complaints of nausea and anorexia. She continued to require IV fluid and electrolyte replacement but she did show gradual recovery. Her further treatment remained on hold. Repeat protein electrophoresis on 01/16/2020 showed stable M protein at 0.4 g/dL. The serum free light chain assay showed elevated free lambda light chain at 254 mg/L with decreased kappa/lambda ratio at 0.16. There was no monoclonal protein identified in the 24-hour urine protein electrophoresis. Restaging PET/CT on 02/24/2020 showed findings concerning for disease progression with new areas of marrow hypermetabolism within the right proximal humerus and within the bilateral distal femoral diametaphysis. The existing areas of involvement within the left ilium and sacrum showed further decrease in FDG uptake. With those findings, I had recommended that she proceed to second line treatment with daratumumab/dexamethasone. She eventually was able to begin her initial infusion of daratumumab on 03/21/2020. Her repeat free light chain assay prior to that showed further increase in the lambda light chain to 537 mg/L with kappa/lambda ratio 0.06. She tolerated the daratumumab with no adverse effects, and she then continued treatment weekly. On 05/03/2020 she underwent EGD and colonoscopy by Dr. Jimenes. The EGD showed no significant abnormal findings, and the colonoscopy showed just 2 small polyps in the rectum. 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 As of 05/09/2020 she had completed her 8th infusion on the weekly schedule, and as of 05/16/2020 she received her 1st of 8 planned infusions at the 2-week interval. Her M protein at that point was stable at 0.4 g/dL. The free light chain assay showed a decrease in the free lambda light chain from 537.42 205.2 mg/L. However, her repeat head MRI on 06/05/2020 showed significant progression of the myelomatous lesions within the skull compared to the study from January 2020. Numerous calvarial lesions were now present, the largest in the right parietal bone measuring 2.2 cm. The postoperative resection site in the posterior right parietal lobe showed significantly more enhancement with slightly more dural enhancement, also suspicious for progression of neoplastic changes. With that finding, she had continued the daratumumab and dexamethasone, but beginning on 06/27/2020 she added pomalidomide at a reduced dosage of 2 mg daily on a 21/28-day schedule. Her repeat PET/CT on 07/12/2020 showed a large lytic lesion within the posterior right calvarium, but without associated hypermetabolism. There were no new lesions identified within the calvarium. There was persistent hypermetabolism noted within the proximal right humerus, SUV 3.6, and there was new hypermetabolism within the marrow of the proximal left humerus, SUV 3.6. There was decrease in FDG uptake within the medial left ilium. There was persistent hypermetabolism noted in the right femoral diametaphysis and in the distal left femoral diametaphysis. There was new hypermetabolism noted in the proximal left tibia. Overall the findings were concerning for disease progression, and she was recommended to undergo a trial of salvage therapy with belantamab [id number]. Her other medical illnesses include hypertension and degenerative arthritis/degenerative disease of the spine. She has associated cervical and lumbar spinal stenosis. She has a history of endometriosis, and she has anxiety/depression. She is a nonsmoker. INTERIM HISTORY: On 08/29/2020 she began cycle 1 of belantamab [id number]. She tolerated the initial infusion without acute toxicity. She continued with cycle 2 on 09/19/2020. Her further management was then complicated by COVID-19 virus infection and by left upper extremity deep vein thrombosis for which she underwent revascularization of the left innominate vein and manual thrombectomy of the left subclavian vein. She was then able to continue the belantamab-mafodotin at 3-week intervals. As of 02/11/2021 she had completed her 5th cycle. Her further treatment was then put on hold due to visual symptoms, though her repeat eye exam in February had shown only grade 1 changes. Restaging PET/CT on 03/15/2021 showed a small focus of increased tracer accumulation in the soft tissues/bone marrow of the right posterior skull with maximum SUV 4.70. That area had not been included on the previous study, so it could not be compared. However, the appearance was consistent with residual myeloma. Also noted was stable mild increased metabolic activity in the left proximal humerus with maximum SUV 3.03. There was no focal increase in the right proximal humerus, noted to have resolved compared to the prior study. Also noted was resolution of previously described metabolic increased activity in the left proximal fibula and in both distal femoral metadiaphyses. Overall the study was noted to be significantly improved. She is seen for a scheduled visit. She is still not been feeling good generally. She complains that she sleeps all the time, least 12 hours a day. She says she does get up to do a few things, but her activity is very limited. ECOG score is 2. Her appetite is not very good. She says she eats once a day. Her weight is down 5 pounds. She does not have fever or night sweats. She says her vision is getting better. She does have some sinus drainage. She does not complain of cough. She has shortness of breath with activity. She also has some heaviness in her chest at times. She has no GI complaints other than her stools tend to be loose, though not watery. She has urinary frequency and urgency. She has pain in the middle of her back which gets worse with activity. She continues to have pain in her right shoulder and arm. She says that both hands get stiff she has a knot on her left wrist. She does not complain of headache or dizziness. She has numbness in her right foot and toes. Medications: Acetaminophen 2 Tablet (of 500 mg) Oral PRN, Aspirin 1 Tablet (of 81 mg) Tablet, chewable Oral daily, B-12 Dots 1 Tablet (of 500 mcg) Tablet Dispersable Oral daily, Claritin 1 Capsule (of 10 mg) Oral daily, [facility] Sodium Chloride 1 Drop(s) (of 5 %) Solution Ophthalmic b.i.d., Eliquis 1 Tablet (of 5 mg) Oral b.i.d., FLUoxetine HCl 1 Tablet (of 10 mg) Oral daily, FLUoxetine HCl 1 Capsule (of 20 mg) Oral daily, Lasix 1 - 2 Tablet (of 40 mg) Oral PRN, Lomotil 2 Tablet (of 2.5-0.025 mg) Oral b.i.d., LORazepam 1 Tablet (of 0.5 mg) Oral b.i.d. PRN, Metoprolol Tartrate 0.5 Tablet (of 25 mg) Oral b.i.d., Probiotic Capsule Oral PRN Allergies: BusPIRone HCl, Codeine and Related, Levaquin, and Morphine Derivatives. Vital Signs: Performed on May 07, 2021 15:55 Height - 63.50 in Weight - 200.8 lbs (LOW) BSA - 1.95 sq.m BMI - 35.01 (HIGH) Temperature - 97.3 F (LOW) Pulse - 70 /min Respiration - 18 /min BP - 124/77 mm(hg) O2 Sat - 97 % Pain - 8 Fatigue - 8 Physical Examination: Constitutional - She appears somewhat weak generally, Eyes - Sclerae nonicteric. Conjunctivae clear, ENMT - No lesions noted in the oral cavity, Hematologic/Lymphatic - No cervical, clavicular, or axillary adenopathy, Respiratory - Lungs sound clear, Cardiovascular - Heart rhythm is regular. There is a II/ systolic murmur. There is no gallop or rub noted, Abdomen - Soft. Liver and spleen are not enlarged. There is no abdominal mass or ascites noted and there is no inguinal adenopathy, Extremities - Slight edema, Integumentary - There is still a significant defect at the wound site in the right occipital scalp, but the open wound appears to have completely healed over, Neurologic - No focal neurologic deficits noted. Lab/Imaging: Test performed on May 07, 2021 14:15 Sodium 137 mmol/L Potassium 3.5 mmol/L Chloride 107 mmol/L CO2 18 mmol/L Anion Gap 15.5 BUN 9 mg/dL Creatinine 0.7 mg/dL Cr Clearance (Est) 103.5700 mL/min eGFR 82.7 mL/min Glucose 93 mg/dL Osmolality - Calculated 282 mOsm/kg Calcium 9.5 mg/dL Protein, Total 5.7 g/dL Albumin 3.8 g/dL Globulin 1.9 g/dL Bilirubin, Total 0.3 mg/dL ALT (SGPT) 13 U/L AST (SGOT) 22 U/L Alkaline Phosphatase 107 IU/L WBC 6.3 10 3/uL RBC 4.47 10 6/uL HGB 12.5 g/dL HCT 39.2 % MCV 87.7 fL MCH 28.0 pg MCHC 31.9 g/dL RDW 17.5 % Platelet Count 218 10 3/cmm MPV 11.3 fL Neutrophils 3.31 10 3/uL Lymphocytes 2.1 10 3/uL Monocytes 0.7 10 3/uL Eosinophils 0.1 10 3/uL Basophils 0.1 10 3/uL Neutrophil % 52.8 % Lymphocyte % 33.5 % Monocyte % 11.0 % Eosinophil % 1.1 % Basophils % 1.4 % NRBC % 0 % IgG 390 mg/dL [place] Free Light Chains 15.8 mg/L Lambda Free Light Chains 17.0 mg/L IgA 24 mg/dL [place]/Lambda Free Ratio 0.93 IgM 14 mg/dL Problem List: 1. IgG lambda myeloma presenting with plasmacytoma involving the right parietal-occipital extra-axial space. She underwent resection/open biopsy of the extracranial portion of the mass on 07/20/2018. 2. She has persistent open wound at the biopsy site. 3. She has had thromboembolism with pulmonary emboli documenby CT pulmonary angiogram on 09/14/2018 and with left upper extremity deep vein thrombosis in October 2020. She required hospitalization in November 2020 for revascularization of the left innominate vein and manual thrombectomy of the left subclavian vein. 4. Degenerative arthritis and degenerative disease of the spine with associated cervical and lumbar spinal stenosis. 5. Hypertension. 6. Endometriosis. 7. Anxiety/depression. Problems Addressed with this Encounter and Plan: 1. Patient with IgG lambda myeloma presenting with plasmacytoma involving the right parietal-occipital extra-axial space. She underwent resection/open biopsy of the extracranial portion of the mass on 07/20/2018. She then underwent radiation, completed on 09/02/2018 to a total dose of 5000 cGy. She had associated IgG lambda monoclonal protein in the serum and 2% monoclonal plasma cells in the bone marrow, consistent with underlying myeloma. Initially it appeared to otherwise not be symptomatic, and she was followed expectantly following completion of the radiation. By January 2019 she had developed increasing pain in the left hip/buttock area. Her repeat protein electrophoresis studies showed only a slight increase in her M protein, but her repeat PET/CT on 02/03/2019 showed significant progression of lytic bone involvement in the left ilium. There was also possible involvement in the distal right femur. The area of lytic involvement in the calvarium was not metabolically active. On 02/23/2019 she began cycle 1 of Velcade/Revlimid/dexamethasone. She also was given an infusion of Zometa for the lytic bone involvement. She had multiple toxicities with the treatment, requiring dose reductions and treatment delays. As of July 2019 her treatment was stopped and she subsequently transitioned to maintenance Revlimid at 5 mg daily. During subsequent follow-up she began treatment for both B12 deficiency and iron deficiency. In November 2019 she was given parenteral iron replacement with Injectafer, and she also began treatment with denosumab for the lytic bone involvement. On 12/06/2019 she was admitted to the hospital with symptomatic hypocalcemia. She also had hypokalemia and hypophosphatemia. I was uncertain to what extent those abnormalities were due to the Injectafer, to the denosumab, or both. However, she continued to have persistent symptomatic hypocalemia and hypophosphatemia requiring prolonged IV and oral replacement therapy. She eventually recovered, but during that time her maintenance Revlimid had been stopped. As of January 2020 her protein electrophoresis studies had shown evidence of progression of her myeloma with increasing free lambda light chain and her restaging PET/CT in February also showed findings suspicious for disease progression. She did not appear to be overtly symptomatic, but with evidence of disease progression, she was recommended to begin second line treatment with daratumumab/dexamethasone. She was able to tolerate the daratumumab/dexamethasone with acceptable toxicity, but as of May 2020 her repeat had MRI showed significant worsening of calvarial lesions, consistent with disease progression. She then continued daratumumab and dexamethasone with addition of pomalidomide beginning in June 2020. She tolerated the treatment very poorly due to [employer] side effects. Her repeat PET/CT on 07/12/2020 showed a large lytic lesion within the posterior right calvarium, but without associated hypermetabolism. There were no new lesions identified within the calvarium. There was persistent hypermetabolism noted within the proximal right humerus, SUV 3.6, and there was new hypermetabolism within the marrow of the proximal left humerus, SUV 3.6. There was decrease in FDG uptake within the medial left ilium. There was persistent hypermetabolism noted in the right femoral diametaphysis and in the distal left femoral diametaphysis. There was new hypermetabolism noted in the proximal left tibia. Overall the findings were concerning for disease progression. On 08/29/2020 she began a trial of salvage therapy with belantamab [id number]. She tolerated the initial infusion with acceptable toxicity, and she continued with cycle 2 on 09/19/2020. Her further clinical course was then complicated by COVID-19 virus infection and by left upper extremity deep vein thrombosis requiring revascularization of the left innominate vein and manual thrombectomy of the left subclavian vein. She then continued treatment at 3-week intervals. She completed her 5th cycle on 02/11/2021. Her further treatment was then put on hold due to visual changes, primarily photosensitivity. Her eye exams thus far have shown only grade 1 changes, which is not a contraindication to treatment. She appeared to have significant response by follow-up PET/CT on 03/15/2021. However, with her persistent visual symptoms, she opted to remain off treatment. She has since then been showing some decline in her performance status, though I am uncertain as to what may be causing that. Thus far her follow-up laboratory studies have shown no change in her M protein or in her free lambda light chain. She has having some new pain in her mid back area and she has ongoing complaints of pain in the right shoulder. She will be scheduled now for MRI of the right shoulder. She will have further evaluation as indicated. If there is evidence of progression of her myeloma, I will consider further treatment with carfilzomib/dexamethasone. 2. She has had diarrhea. It has been improving with symptomatic management. 3. She has had thromboembolism including pulmonary emboli in August 2018 and left upper extremity deep vein thrombosis while on anticoagulation. She continues her anticoagulation with apixaban 5 mg twice daily. Signed By: Ruiz Rodriguez M.D. <<Signature on File>>
== END 2021-05-07 13:58 | disposition home or self-care (01) ==
PROVIDERS: PCP Electrodiagnostic Medicine; Visit Provider Nurse Practitioner
DX: C90.00 Multiple myeloma not having achieved remission (principal); C79.51 Secondary malignant neoplasm of bone; M47.9 Spondylosis, unspecified; S01.80XS Unspecified open wound of other part of head, sequela; M48.061 Spinal stenosis, lumbar region without neurogenic claudication; M48.02 Spinal stenosis, cervical region; X58.XXXS Exposure to other specified factors, sequela; Z92.3 Personal history of irradiation; Z79.01 Long term (current) use of anticoagulants; Z86.711 Personal history of pulmonary embolism; N80.9 Endometriosis, unspecified; F41.9 Anxiety disorder, unspecified; F32.9 Major depressive disorder, single episode, unspecified; I10 Essential (primary) hypertension; Z92.21 Personal history of antineoplastic chemotherapy
CPT/HCPCS: 36415; 80053; 82784; 83883; 84155; 84165; 85025; 96523; 99214

== ENCOUNTER 2021-05-09 13:45 | Outpatient (RCR) | payer MEDICARE, SELFPAY | END 2021-05-15 23:59 | disposition home or self-care (01) | LOC: WOUND 13:45 | PROVIDERS: PCP Electrodiagnostic Medicine; Visit Provider Nurse Practitioner Family | DX: L59.8 Other specified disorders of the skin and subcutaneous tissue related to radiation (principal); Y84.2 Radiological procedure and radiotherapy as the cause of abnormal reaction of the patient, or of later complication, without mention of misadventure at the time of the procedure; Y78.1 Therapeutic (nonsurgical) and rehabilitative radiological devices associated with adverse incidents | CPT/HCPCS: 11042 ==

== ENCOUNTER 2021-05-27 09:54 | Outpatient (CLI) | payer MEDICARE, SELFPAY ==
--- NOTE | 2021-05-27 10:07 | MR_ITS ---
WS: [id number] Valentin joshi MRI RIGHT SHOULDER with and without contrast. HISTORY: RIGHT upper extremity pain for one month. History of multiple myeloma. COMPARISON: RIGHT shoulder 01/21/2021 radiograph. TECHNIQUE: Multiplanar sequences of the shoulder joint are submitted. Abnormal intramedullary lesion in the proximal RIGHT humerus. Increased T2 signal and decreased T1 si gnal in the humeral neck extends over a length of 3.5 cm and transversely by 1.9 cm. Margins are slig htly irregular and there is enhancement postcontrast. There is no break in the cortex. There is a sma ller similar satellite lesion extending towards the greater tuberosity. No additional lesions are meka ntified in the bones. Moderate AC joint arthritis with mild encroachment upon the supraspinatus. Increase fluid in the suba cromial and subdeltoid bursa. Fraying and irregularity noted along the articular surface of the dista l supraspinatus. Insertion site tears involving the supraspinatus. Partial tear with no retraction of the tendon. Moderate atrophy of the supraspinatus muscle. Subscapularis recess fluid. No muscle manny a. No os acromion. Biceps tendon in normal position. Moderate narrowing of the coracohumeral interval. MR/MR shoulder RT wo/w con [id number] IMPRESSION: 1. Enhancing intramedullary lesion measuring 3.5 x 1.9 cm centered in the RIGH T humeral neck. There is an adjacent satellite lesion extending towards the gre ater tuberosity which is smaller. Most consistent with metastatic sites from kn own multiple myeloma. 2. Insertion site tear of the supraspinatus tendon and mild atrophy of the mus brittny. 3. Moderate AC joint arthritis. 4. Moderate narrowing of the coracohumeral interval. 5. Increase fluid in the subscapularis recess, subacromial and subdeltoid burs a.
[2021-05-27] MEDS: gadobenate dimeglumine 20 mL vial IV (11:12)
== END 2021-05-27 09:55 | disposition home or self-care (01) ==
PROVIDERS: PCP Electrodiagnostic Medicine; Visit Provider Internal Medicine Medical Oncology
DX: C90.00 Multiple myeloma not having achieved remission (principal); M25.511 Pain in right shoulder; M13.811 Other specified arthritis, right shoulder
CPT/HCPCS: 73223; A9577

== ENCOUNTER 2021-06-06 14:00 | Outpatient (CLI) | payer MEDICARE, SELFPAY | END 2021-06-06 14:01 | disposition home or self-care (01) | LOC: WOUND 14:04 | PROVIDERS: PCP Electrodiagnostic Medicine; Visit Provider Thoracic Surgery (Cardiothoracic Vascular Surgery) | DX: L59.8 Other specified disorders of the skin and subcutaneous tissue related to radiation (principal); Y84.2 Radiological procedure and radiotherapy as the cause of abnormal reaction of the patient, or of later complication, without mention of misadventure at the time of the procedure; Y78.1 Therapeutic (nonsurgical) and rehabilitative radiological devices associated with adverse incidents | CPT/HCPCS: 97597 ==

== ENCOUNTER 2021-06-17 10:35 | Outpatient (CLI) | payer MEDICARE, SELFPAY ==
--- NOTE | 2021-06-17 11:10 | MR_ITS ---
WS: [id number] MRI LEFT SHOULDER NONCONTRAST AND CONTRAST TECHNIQUE: Sagittal T2, coronal T1, T2 and proton density imaging. Axial gradient PDE imaging. CLINICAL INFORMATION: MULTIPLE MYELOMA COMPARISON: MRI May 27, 2021 FINDINGS: Intramedullary T2 hyperintense enhancing lesion involving the right proximal humerus is again seen. T gómez this measures approximately 2.6 x 2.1 x 4.1 cm with associated enhancement. This appears increas ed in size compared to previous where it measured approximately 1.9 x 1.9 x 3.5 CM. Cortex appears pr eserved. Patient at risk for pathologic fracture. No acute fractures seen today. No other significant changes from previous. Moderate degenerative arthritis at the AC joint with slig ht subacromial spurring. Small amount of subacromial subdeltoid fluid. Tendinopathy in the distal sup raspinatus. Small insertional tear at the supraspinatus insertion. Infraspinatus appears intact. Norm al teres minor and subscapularis. Normal biceps tendon in the bicipital groove. Degenerative fraying glenoid labrum. MR/MR shoulder LT wo/w con [id number] IMPRESSION: 1. Again seen is the intramedullary T2 hyperintense enhancing right humeral le yon slightly progressed compared to May 27, 2021 today measuring 2.6 x 2.1 x 4.1 compared to 1.9 x 1.9 x 3.5 CM previous. Patient at risk for pathologic fra cture. No acute fractures. 2. No other significant changes from previous. 3. Tiny supraspinatus insertional tear. 4. Moderate degenerative arthritis at the AC joint with a small amount of suba cromial and subdeltoid fluid. Mild downsloping of the acromion.
[2021-06-17] MEDS: gadobenate dimeglumine 20 mL vial IV (12:15)
[2021-06-17 17:57] LABS: SARS Covid-2 Antigen Negative (Negative)
== END 2021-06-17 10:36 | disposition home or self-care (01) ==
PROVIDERS: PCP Electrodiagnostic Medicine; Visit Provider Internal Medicine Medical Oncology
DX: C90.00 Multiple myeloma not having achieved remission (principal); M19.012 Primary osteoarthritis, left shoulder
CPT/HCPCS: 73223; 87426; A9577

== ENCOUNTER 2021-06-19 08:28 | Outpatient (CLI) | payer MEDICARE, SELFPAY ==
--- NOTE | 2021-06-19 | CT_ITS ---
Radiation Therapy Planning CT images; total exam DLP: 1098.57 mGy-cm MTDD
--- NOTE | 2021-06-19 09:40 | N.ONRAD NP_ITS ---
Radiation Oncology Consultation Patient Name: Valentin Clark Date of : 1950 Date of Service: 06/19/2021 Attending Physician: Rigo Bah M.D. Valentin Clark was seen in consultation this morning t the request of Ruiz Rodriguez M.D. for consideration of radiotherapy for the management of multiple myeloma. 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 The diagnosis was confirmed with a section of the lesion. Radiotherapy was administered completing in August 2018. Disease progression was noted after PET CT imaging in January 2019 demonstrated lower extremity skeletal FDG activity. At that time, Velcade, Revlimid, and dexamethasone were implemented. In March 2020 she began Darzalex. A repeat head MRI in May 2020 revealed progression of the myelomatous lesions within the skull. Pomalyst was added to the regimen. A PET CT obtained in June 2020 showed disease progression and salvage therapy with BLENREP was instituted. A restaging PET CT obtained in February of this year confirmed significant response to therapy, however, BLENREP was discontinued secondary to photosensitivity. During an office visit in April, she reported worsening right shoulder pain. An MR (personally reviewed in [facility]) ordered on May 27, 2021 identified 3.5 cm abnormal signal in the right humeral neck without cortical failure. Approximately a month later, she described left shoulder pain with MR imaging revealing a 4.1 cm enhancing lesion in the left proximal humerus with preservation of the cortex. The patient was evaluated for palliative radiotherapy to the right and left humeri. I discussed with the patient the role for radiotherapy in the setting of multiple myeloma. I anticipate a 2 week course of treatment that will be implemented following a computed tomographic radiotherapy planning scan in the treatment position that will be performed to identify the gross tumor volume. The potential toxicities of upper extremity radiotherapy were reviewed. The patient has verbalized understanding would like to proceed as recommended. Her medical treatment plan was discussed with Dr. Rodriguez. Signed by: Dr. Rigo Bah 06/19/2021 9:38:22 AM
== END 2021-06-19 08:29 | disposition home or self-care (01) ==
LOC: ONCMED 08:32
PROVIDERS: PCP Electrodiagnostic Medicine; Visit Provider Radiology Radiation Oncology
DX: Z51.0 Encounter for antineoplastic radiation therapy (principal); C90.00 Multiple myeloma not having achieved remission; C79.51 Secondary malignant neoplasm of bone; Z79.899 Other long term (current) drug therapy; Z79.52 Long term (current) use of systemic steroids
CPT/HCPCS: 77290; 77295; 77300; 77334; 99205

== ENCOUNTER 2021-07-04 10:57 | Outpatient (CLI) | payer MEDICARE, SELFPAY | END 2021-07-04 10:58 | disposition home or self-care (01) | LOC: WOUND 10:58 | PROVIDERS: PCP Electrodiagnostic Medicine; Visit Provider Nurse Practitioner Family | DX: I96 Gangrene, not elsewhere classified (principal); L98.492 Non-pressure chronic ulcer of skin of other sites with fat layer exposed | CPT/HCPCS: 11042 ==

== ENCOUNTER 2021-07-10 05:43 | Outpatient (RCR) | payer MEDICARE, SELFPAY ==
--- NOTE | 2021-06-25 16:18 | ONCRAD TMN_ITS ---
Radiation Oncology Treatment Management Note Patient Name: Valentin Clark Date of : 1950 Date of Service: 06/25/2021 Attending Physician: Rigo Bah M.D. Valentin Clark is a 71 year old white female diagnosed with multiple myeloma. During an office visit in April, she reported worsening right shoulder pain. An MRI ordered on May 27, 2021 identified 3.5 cm abnormal signal in the right humeral neck without cortical failure. The patient has received 3 Gy of a prescribed 30 Dennis to the right humerus with a 3-dimensional conformal radiotherapy plan utilizing AP/PA treatment marinelli. Upon review of systems, she reported right shoulder pain. On physical examination, the patient weighed 205 lbs. Her temperature was 97.6 ???F with a blood pressure of 128/70 mmHg. Her pulse was 54 bpm and her respiratory rate was 18. Continue palliative radiotherapy as prescribed. Signed by: Dr. Rigo Bah 06/25/2021 4:17:56 PM
--- NOTE | 2021-06-26 08:47 | MM_ITS ---
WS: [id number] SCREENING DIGITAL MAMMOGRAM WITH CAD HISTORY: Screening; multiple MYELOMA COMPARISON: 06/25/2020, 07/14/2018 Bilateral CC and MLO views submitted. Computer aided detection analyzed. Breast composition: There are scattered areas of fibroglandular density. No suspicious masses, microc alcifications or architectural distortion. Biopsy clip upper outer quadrant of the LEFT breast. No in terval change within either breast. MM/[place] [id number] IMPRESSION: BI-RADS: 2-Benign FOLLOW UP: 1 Year Follow-up
--- NOTE | 2021-07-02 15:16 | ONCRAD TMN_ITS ---
Radiation Oncology Treatment Management Note Patient Name: Valentin Clark Date of : 1950 Date of Service: 07/02/2021 Attending Physician: Rigo Bah M.D. Valentin Clark is a 71 year old white female diagnosed with multiple myeloma. During an office visit in April, she reported worsening right shoulder pain. An MRI ordered on May 27, 2021 identified 3.5 cm abnormal signal in the right humeral neck without cortical failure. The patient has received 18 Gy of a prescribed 30 Dennis to the right humerus with a 3-dimensional conformal radiotherapy plan utilizing AP/PA treatment marinelli. Upon review of systems, she reported no change in right shoulder pain. On physical examination, the patient weighed 204 lbs. Her temperature was 96.8 ???F with a blood pressure of 146/83 mmHg. Her pulse was 70 bpm and her respiratory rate was 18. Continue palliative radiotherapy as planned. Signed by: Dr. Rigo Bah 07/02/2021 3:14:20 PM
[2021-07-05 10:50] LABS: Basophils # 0.1 10^3/uL (0.0-0.1); Basophils % 1.6 %; Eosinophils # 0.2 10^3/uL (0.0-0.8); Hematocrit 38.6 % (37.0-47.0); Hemoglobin 12.5 g/dL (11.5-15.3); Lymphocytes # 1.9 10^3/uL (0.8-4.8); Lymphocytes % 37.7 %; Mean Corpuscular HGB Conc 32.4 g/dL (30.0-36.0); Mean Corpuscular Hemoglobin 28.4 pg (28.0-34.0); Mean Corpuscular Volume 87.7 fl (81-99); Mean Platelet Volume 11.5 fL (7.4-10.4); Monocytes # 0.5 10^3/uL (0.2-0.9); Monocytes % 10.1 %; Neutrophils # 2.34 10^3/uL (1.8-7.7); Neutrophils % 47.4 %; Nucleated Red Blood Cells % 0 %; Platelet Count 188 10^3/cmm (130-400); Red Cell Distribution Width 15.1 % (12.1-15.1); White Blood Count 4.9 10^3/uL (4.0-10.0)
[2021-07-05 11:18] LABS: Alanine Aminotransferase 25 U/L (0-33); Albumin Level 3.5 g/dL (3.5-5.2); Alkaline Phosphatase 101 IU/L (35-105); Anion Gap 11.1 (5-19); Aspartate Amino Transferase 28 U/L (0-32); Blood Urea Nitrogen 11 mg/dL (8-23); Carbon Dioxide 28 mmol/L (22-29); Chloride 106 mmol/L (98-107); Glomerular Filtration Rate 82.7 mL/min (90-130); Glucose 93 mg/dL (65-115); Immunoglobulin IGG 369 mg/dL (700-1600); Lactate Dehydrogenase 107 U/L (135-214); Osmolality Calculated 291 mOsm/kg (285-295); Potassium 4.1 mmol/L (3.5-5.1); Sodium 141 mmol/L (136-145); Total Bilirubin 0.4 mg/dL (0.15-1.2); Total Protein 5.5 g/dL (6.6-8.7)
[2021-07-05 11:37] LABS: Immunoglobulin IGA 22 mg/dL (70-400); Immunoglobulin IGM 16 mg/dL (40-230)
[2021-07-06 10:19] LABS: PROTEIN, TOTAL 5.2 g/dL (6.1-8.1)
[2021-07-08 14:03] LABS: KAPPA LIGHT CHAIN, FREE, SERUM 17.6 mg/L (3.3-19.4); KAPPA/LAMBDA LIGHT CHAINS FREE 0.54 (0.26-1.65); LAMBDA LIGHT CHAIN, FREE, SERU 32.6 mg/L (5.7-26.3)
--- NOTE | 2021-07-08 14:50 | N.ONRD TS_ITS ---
Radiation OncologyTreatment Summary Patient Name: Valentin Clark Date of : 1950 Date of Service: 07/08/2021 Attending Physician: Rigo Bah M.D. Valentin Clark has completed palliative radiotherapy for the management of multiple myeloma. During an office visit in April, she reported worsening right shoulder pain. An MRI ordered on May 27, 2021 identified 3.5 cm abnormal signal in the right humeral neck without cortical failure. Daily radiotherapy was administered between the dates of June 25, 2021 through July 08, 2021. A prescribed dose of 30 Gy was delivered in 10 fractions encompassing 14 elapsed days. The right humerus was treated utilizing a 3-dimensional conformal radiotherapy plan with an AP/PA portal field design. The AP field utilized a 0??? gantry angle with a collimator angle of 30???. The field size measured 6.5 cm x 6.5 cm within the X-direction and 4 cm x 4 cm within the Y-direction. The SSD measured 95.4 cm with the field delivering 198 monitor units. The PA port employed a gantry angle of 180??? and a collimator angle of 330???. The field size was 6.5 cm x 6.5 cm within X-direction and 4 cm x 4 cm within the Y-direction. The assessed SSD was 89.1 cm with the field allocating 113 monitor units. All treatments were performed with the [employer] linear accelerator and an isocentric technique. The dose was calculated by Anisotropic Analytic Algorithm. Photon energies of 15 MV were prescribed with the plan normalized to deliver 100% of the prescription dose to 95% of the planning target volume. Signed by: Dr. Rigo Bah 07/08/2021 2:49:40 PM
[2021-07-08 15:13] LABS: ABNORMAL PROTEIN BAND 1 0.2 g/dL (NONE DETECTED); ALBUMIN 3.3 g/dL (3.8-4.8); ALPHA 1 GLOBULIN 0.2 g/dL (0.2-0.3); ALPHA 2 GLOBULIN 0.7 g/dL (0.5-0.9); BETA 1 GLOBULIN 0.4 g/dL (0.4-0.6); BETA 2 GLOBULIN 0.2 g/dL (0.2-0.5); GAMMA GLOBULIN 0.4 g/dL (0.8-1.7)
[2021-07-09 13:07] LABS: PROTEIN, TOTAL, 24 HR UR NOTE mg/24 h (<150); Protein/Creatinine Ratio NOTE (< OR = 0.114); Protein/Creatinine Ratio NOTE mg/g creat (< OR = 114)
[2021-07-10 17:23] LABS: ALBUMIN 0 %; ALPHA-1-GLOBULINS 0 %; ALPHA-2-GLOBULINS 0 %; BETA GLOBULINS 0 %; GAMMA GLOBULINS 0 %
--- NOTE | 2021-07-10 18:09 | ONC FU_ITS ---
Dr. Rodriguez Patient Follow-Up Note Patient: Valentin Clark Unit #: [id number]: 1950 Dicatated By: Ruiz Rodriguez M.D.Date of Visit:Jul 10, 2021 Onc Med Follow-up/Prog Note Chief Complaint: Mulitple myeloma. 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 In March 2018 she had bumped her head at work and in the process of that she became aware of a small lump, though it was actually in a slightly different area. She then noticed that the lump was getting larger. Evaluation with head MRI on 06/07/2018 showed evidence of a right parietal occipital extra-axial neoplasm, felt to be most likely meningeal in origin. It was noted to exert mass effect on the right parietal and occipital lobes, but without associated midline shift or white matter parenchymal edema. The lesion was noted to invade through the calvarium and into the subcutaneous parietal occipital scalp soft tissues. The mass measured 5.7 x 3.5 x 6 cm. 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 The area of occlusion was noted to extend over approximately 4.3 cm. She was seen by Dr. Landry and subsequently referred for neurosurgery evaluation at [facility]. Initially they had considered possible surgical resection. Her further evaluation there apparently included laboratory findings which were suspicious for myeloma, and it was recommended that she have treatment with radiation. She was seen here for further management on 07/14/2018. She then returned to Dr. Landry, and on 07/20/2018 she underwent open biopsy/resection of the extracranial extent of the mass. 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 Her further evaluation included protein electrophoresis which showed an IgG lambda monoclonal protein in the serum quantitating at 0.48 g/dL. The serum free light chain assay showed elevated lambda light chain at 374.65 mg/L with decreased kappa/lambda ratio at 0.06. The 24-hour urine protein electrophoresis showed no monoclonal protein. There were no other areas of lytic bone involvement noted on her skeletal survey. Bone marrow aspiration/biopsy on 07/30/2018 showed a monotypic plasma cell population, but it comprised only 2% of the total cellularity. A FISH panel for myeloma was unrevealing, and the standard chromosome analysis was normal. She was referred to Dr. Kaur, and she began radiation to the lesion on 07/30/2018. She completed treatment on 09/02/2018 to a total dose of 5,000 cGy. She had evaluation with CT pulmonary angiogram on 09/14/2018. It showed moderate bilateral pulmonary embolic burden. She began on anticoagulation with apixaban. During her subsequent follow-up she continued to have an open wound at the site of the plasmacytoma in the parietal-occipital scalp region. As of her follow-up visit on 10/19/2018 her M protein was stable 0.37 g/dL. In the absence of any evidence of symptomatic myeloma, she had otherwise just continued on observation/expectant management. However, due to her persistent scalp wound she had a repeat brain MRI on 01/11/2019. It showed evidence of residual neoplastic process at the resection site. There was associated dural involvement but with improved signal characteristics and decreased enhancement compared to the study from September 2018. She had further evaluation with PET/CT on 02/03/2019. It showed increase in size and expansile hypermetabolic lesion within the left ilium with extension of hypermetabolic tumor into the adjacent left iliac muscle. There was a new hypermetabolic lytic process within the right S1/S2 region. A large lytic mass within the posterior calvarium did not appear to have active hypermetabolism. Also noted, though, was a hypermetabolic lesion within the medullary canal of the distal left femoral diametaphysis and an additional hypermetabolic focus in the anterior cortex of the distal right femur concerning for additional areas of myeloma. In the setting of obvious progression of her myeloma, she began treatment with VRd on 02/23/2019. At that time she also received an infusion of IV Zometa for the lytic bone involvement. She experienced multiple toxicities with the VRd regimen, requiring dose reductions and treatment delays. Beginning with cycle 4, and June 2019 the Velcade was dropped from the regimen, and the following month her treatment was put on hold due to multiple toxicities, mainly severe fatigue and excessive somnolence. She was found to have a low B12 level, for which she began on B12 replacement therapy. At her follow-up visit on 11/28/2019 she was still mildly anemic, and transferrin saturation was still low at 17% despite being on oral iron replacement. As such, she was then given parenteral iron replacement with infusions of Injectafer on 11/28/2019 and on 12/05/2019. With the 11/28 visit she also was given denosumab 120 mg by subcutaneous injection for the lytic bone involvement. On 12/06/2019 she was admitted to the hospital with symptomatic hypocalcemia, serum calcium 5.9 mg/dL with albumin 2.9 g/dL. Renal function was stable with creatinine 1.0 mg/dL, but her potassium also was low at 3.2 mmol/L. She was given IV calcium and potassium replacement. She then continued further IV replacement as an outpatient. Despite that she was readmitted to the hospital with hypocalcemia on 12/15/2019. She was discharged home on 12/23/2019. Her evaluation included CT pulmonary angiogram which showed no evidence of pulmonary embolism. There was evidence of cardiomegaly, a small pericardial effusion, and small bilateral pleural effusions. Echocardiogram showed small, hemodynamically insignificant pericardial effusion and normal left ventricular function. She then returned here on 12/27/2019 and she has since then continued IV fluid and electrolyte replacement, daily for the first week and then on Mondays, Wednesdays, and Fridays. Despite that, she continued to feel weak and shaky, and she had ongoing complaints of nausea and anorexia. She continued to require IV fluid and electrolyte replacement but she did show gradual recovery. Her further treatment remained on hold. Repeat protein electrophoresis on 01/16/2020 showed stable M protein at 0.4 g/dL. The serum free light chain assay showed elevated free lambda light chain at 254 mg/L with decreased kappa/lambda ratio at 0.16. There was no monoclonal protein identified in the 24-hour urine protein electrophoresis. Restaging PET/CT on 02/24/2020 showed findings concerning for disease progression with new areas of marrow hypermetabolism within the right proximal humerus and within the bilateral distal femoral diametaphysis. The existing areas of involvement within the left ilium and sacrum showed further decrease in FDG uptake. With those findings, I had recommended that she proceed to second line treatment with daratumumab/dexamethasone. She eventually was able to begin her initial infusion of daratumumab on 03/21/2020. Her repeat free light chain assay prior to that showed further increase in the lambda light chain to 537 mg/L with kappa/lambda ratio 0.06. She tolerated the daratumumab with no adverse effects, and she then continued treatment weekly. On 05/03/2020 she underwent EGD and colonoscopy by Dr. Jimenes. The EGD showed no significant abnormal findings, and the colonoscopy showed just 2 small polyps in the rectum. 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 As of 05/09/2020 she had completed her 8th infusion on the weekly schedule, and as of 05/16/2020 she received her 1st of 8 planned infusions at the 2-week interval. Her M protein at that point was stable at 0.4 g/dL. The free light chain assay showed a decrease in the free lambda light chain from 537.42 205.2 mg/L. However, her repeat head MRI on 06/05/2020 showed significant progression of the myelomatous lesions within the skull compared to the study from January 2020. Numerous calvarial lesions were now present, the largest in the right parietal bone measuring 2.2 cm. The postoperative resection site in the posterior right parietal lobe showed significantly more enhancement with slightly more dural enhancement, also suspicious for progression of neoplastic changes. With that finding, she had continued the daratumumab and dexamethasone, but beginning on 06/27/2020 she added pomalidomide at a reduced dosage of 2 mg daily on a 21/28-day schedule. Her repeat PET/CT on 07/12/2020 showed a large lytic lesion within the posterior right calvarium, but without associated hypermetabolism. There were no new lesions identified within the calvarium. There was persistent hypermetabolism noted within the proximal right humerus, SUV 3.6, and there was new hypermetabolism within the marrow of the proximal left humerus, SUV 3.6. There was decrease in FDG uptake within the medial left ilium. There was persistent hypermetabolism noted in the right femoral diametaphysis and in the distal left femoral diametaphysis. There was new hypermetabolism noted in the proximal left tibia. Overall the findings were concerning for disease progression, and she was recommended to undergo a trial of salvage therapy with belantamab [id number]. Her other medical illnesses include hypertension and degenerative arthritis/degenerative disease of the spine. She has associated cervical and lumbar spinal stenosis. She has a history of endometriosis, and she has anxiety/depression. She is a nonsmoker. INTERIM HISTORY: On 08/29/2020 she began cycle 1 of belantamab [id number]. She tolerated the initial infusion without acute toxicity. She continued with cycle 2 on 09/19/2020. Her further management was then complicated by COVID-19 virus infection and by left upper extremity deep vein thrombosis for which she underwent revascularization of the left innominate vein and manual thrombectomy of the left subclavian vein. She was then able to continue the belantamab-mafodotin at 3-week intervals. As of 02/11/2021 she had completed her 5th cycle. Her further treatment was then put on hold due to visual symptoms, though her repeat eye exam in February had shown only grade 1 changes. Repeat head MRI on 02/26/2021 showed no evidence of recurrent or progressed disease. There is stable enhancement about the resection cavity in the right parieto-occipital area. Multiple enhancing myelomatous lesions involving the underlying calvarium appeared stable. The largest was in the right parietal calvarium measuring 1.8 cm. 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 There was associated encephalomalacia and gliosis. Restaging PET/CT on 03/15/2021 showed a small focus of increased tracer accumulation in the soft tissues/bone marrow of the right posterior skull with maximum SUV 4.70. That area had not been included on the previous study, so it could not be compared. However, the appearance was consistent with residual myeloma. Also noted was stable mild increased metabolic activity in the left proximal humerus with maximum SUV 3.03. There was no focal increase in the right proximal humerus, noted to have resolved compared to the prior study. Also noted was resolution of previously described metabolic increased activity in the left proximal fibula and in both distal femoral metadiaphyses. Overall the study was noted to be significantly improved. As of her follow-up visit on 05/07/2021 she was showing some decline in performance status. She reported having new pain in her back and she reported increased pain in her right shoulder. MRI of the right shoulder on 05/27/2021 showed an enhancing intramedullary lesion centered in the right humeral head measuring 3.5 x 1.9 cm. A smaller adjacent satellite lesion was noted to extend towards the greater tuberosity. The findings were most consistent with metastatic sites from the myeloma. She was seen by Dr. Bah for palliative radiation. She had had further evaluation with MRI of the left shoulder which showed an intramedullary T2 hyperintense enhancing lesion in the left humeral head measuring 2.6 x 2.1 x 4.1 cm. With those findings, she underwent palliative radiation to the right shoulder. Treatment was completed on 07/08/2021 to a total dose of 3000 cGy administered in 10 fractions. She is seen for a scheduled visit. She has not been feeling good generally. She says her shoulder pain is about 50% better since completing the radiation. She is managing it adequately with hydrocodone 5/APAP 325, but she does have to take 2 tablets. She complains that she is beyond tired and that she is sleeping excessively. She is still doing some housework. ECOG score is 1. Her appetite is not good. She says she does not care about food, but she does eat. She has not had fever. She has a little bit of sweating, mostly during the daytime. She complains that her nose runs constantly. She has a little bit of cough. She sometimes has shortness of breath, but her breathing is pretty good most of the time. She does not complain of chest pain. She says she has some nausea there all the time. She had 1 recent episode of vomiting. She has a little bit of constipation. She reports having frequent urination. She still has some pain in the shoulders and she has been having some pain on the right side of the neck. She also reports pain in her low back on the right side and in the lateral aspect of her right hip. She has a little bit of headache. She says she is off balance a lot. She complains of some weakness and some numbness on her right side. She says it feels spongy. She has having some anxiety and depression. Medications: Albuterol Sulfate HFA Aerosol, solution Inhalation PRN, Arthritis Pain Reliever 2 Gm/60mL (of 1 %) Gel (jelly) Topical PRN, Aspirin 1 Tablet (of 81 mg) Tablet, chewable Oral daily, B-12 Dots 1 Tablet (of 500 mcg) Tablet Dispersable Oral daily, Claritin 1 Capsule (of 10 mg) Oral daily PRN, Eliquis 1 Tablet (of 5 mg) Oral b.i.d., FLUoxetine HCl 1 Tablet (of 10 mg) Oral daily, FLUoxetine HCl 1 Capsule (of 20 mg) Oral daily, HYDROcodone-Acetaminophen 1 - 2 Tablet (of 5-325 mg) Oral q 4 to 6 hours PRN, Lasix 1 - 2 Tablet (of 40 mg) Oral PRN, LORazepam 1 Tablet (of 0.5 mg) Oral b.i.d. PRN, Probiotic Capsule Oral PRN, RA Senna 1 Capsule (of 8.6 mg) Oral daily PRN, Vitamin D3 Super Strength 1 Capsule (of 50 mcg ) Oral b.i.d. Allergies: BusPIRone HCl, Codeine and Related, Levaquin, and Morphine Derivatives. Vital Signs: Performed on Jul 10, 2021 16:17 Height - 63.50 in Weight - 202.8 lbs (LOW) BSA - 1.96 sq.m BMI - 35.36 (HIGH) Temperature - 97.1 F (LOW) Pulse - 77 /min Respiration - 18 /min BP - 138/78 mm(hg) O2 Sat - 97 % Pain - 4 Fatigue - 10 Physical Examination: Constitutional - She appears somewhat weak generally, Head - The right occipital scalp wound is completely healed. There are multiple small nodules palpable along the inferior margin of the lesion, Eyes - Sclerae nonicteric. Conjunctivae clear, ENMT - No lesions noted in the oral cavity, Hematologic/Lymphatic - No cervical, clavicular, or axillary adenopathy, Respiratory - Lungs sound clear, Cardiovascular - Heart rhythm is regular. There is a II/ systolic murmur. There is no gallop or rub noted, Abdomen - Mildly distended but soft. Liver and spleen are not enlarged. There is no abdominal mass or ascites noted and there is no inguinal adenopathy, Extremities - No edema, Neurologic - No focal neurologic deficits noted. Lab/Imaging: Her laboratory studies from 07/05/2021 included CBC showing hemoglobin 12.5 g, white blood cell count 4900, and platelet count 188,000. Comprehensive metabolic profile showed normal renal function with BUN 11 and creatinine 0.7 mg/dL. Bilirubin and liver enzymes were normal. LDH normal at 100 7U/L. Her protein electrophoresis showed a monoclonal protein band quantitating at 0.2 g/dL. The serum free light chain assay showed free lambda light chain 32.6 mg/L, free kappa light chain 17.6 mg/L, and normal kappa/lambda ratio at 0.54. The quantitative immunoglobulin levels were low with IgG 369 mg/dL, IgA 22 mg/dL, and IgM 16 mg/dL. The urine protein electrophoresis showed no monoclonal protein excretion. Problem List: 1. IgG lambda myeloma presenting with plasmacytoma involving the right parietal-occipital extra-axial space. She underwent resection/open biopsy of the extracranial portion of the mass on 07/20/2018. 2. She has persistent open wound at the biopsy site. 3. She has had thromboembolism with pulmonary emboli documented by CT pulmonary angiogram on 09/14/2018. She developed left upper extremity deep vein thrombosis in October 2020 in association with COVID-19 virus infection. She required hospitalization in November 2020 for revascularization of the left innominate vein and manual thrombectomy of the left subclavian vein. 4. Degenerative arthritis and degenerative disease of the spine with associated cervical and lumbar spinal stenosis. 5. Hypertension. 6. Endometriosis. 7. Anxiety/depression. Problems Addressed with this Encounter and Plan: 1. Patient with IgG lambda myeloma presenting with plasmacytoma involving the right parietal-occipital extra-axial space. She underwent resection/open biopsy of the extracranial portion of the mass on 07/20/2018. She then underwent radiation, completed on 09/02/2018 to a total dose of 5000 cGy. She had associated IgG lambda monoclonal protein in the serum and 2% monoclonal plasma cells in the bone marrow, consistent with underlying myeloma. Initially it appeared to otherwise not be symptomatic, and she was followed expectantly following completion of the radiation. By January 2019 she had developed increasing pain in the left hip/buttock area. Her repeat protein electrophoresis studies showed only a slight increase in her M protein, but her repeat PET/CT on 02/03/2019 showed significant progression of lytic bone involvement in the left ilium. There was also possible involvement in the distal right femur. The area of lytic involvement in the calvarium was not metabolically active. Her subsequent myeloma therapies included: 1. Velcade/Revlimid/dexamethasone beginning 02/23/2019. She had multiple toxicities, requiring dose reductions and treatment delays. As of July 2019 she was transitioned to maintenance Revlimid at 5 mg daily. 2. Second line treatment with daratumumab/dexamethasone began 03/21/2020. As of 06/27/2020 pomalidomide was added at a reduced dosage. She tolerated the pomalidomide very poorly due to [employer] side effects. Treatment was then stopped due to evidence of disease progression by PET/CT on 07/12/2020. 3. She began salvage therapy with belantamab mafodotin 08/29/2020. That treatment was interrupted when she was confirmed to have COVID-19 virus infection following the 2nd cycle. It was restarted in December 2020. It was stopped after the 5th cycle, administered on 02/11/2021, due to visual changes. She appeared to have significant response by follow-up PET/CT on 03/15/2021. However, with her persistent visual symptoms, she opted to remain off treatment. During subsequent follow-up she had reported increasing pain in the right shoulder. 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 She was given palliative radiation to the right shoulder, completed on 07/08/2021 to a total dose of 3000 cGy, ministered in 10 fractions. She has had some improvement in the pain with the radiation. Overall, she has had a very difficult clinical course with her myeloma. She has had very poor tolerance for most therapies and her protein electrophoresis studies have not been very reliable for monitoring the progress of her disease. She has had relatively marginal performance status throughout her treatment, and I had deemed her to be a poor candidate for stem cell transplant. I discussed other treatment options, which are becoming more limited now. However, she has not yet been exposed to carfilzomib, and so I will plan to have her begin treatment with carfilzomib/dexamethasone, subject to verification of adequate cardiac function. Other options may include teclistamab when that becomes available or possibly CAR-T therapy. At this point she will be scheduled for restaging PET/CT and head MRI. She also will be scheduled for echocardiogram to check her LV function. Assuming it is adequate, she can then proceed with the carfilzomib/dexamethasone regimen. In the meantime, she will be given a prescription for hydrocodone 10/APAP 325 to take as needed. 2. 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 3. She has had thromboembolism including pulmonary emboli in August 2018 and left upper extremity deep vein thrombosis while on anticoagulation. She continues her anticoagulation with apixaban 5 mg twice daily. Signed By: Ruiz Rodriguez M.D. <<Signature on File>>
== END 2021-07-16 23:59 | disposition home or self-care (01) ==
LOC: ONCMED 05:43
PROVIDERS: PCP Electrodiagnostic Medicine; Visit Provider Internal Medicine Medical Oncology
DX: Z51.0 Encounter for antineoplastic radiation therapy (principal); C90.00 Multiple myeloma not having achieved remission; C79.31 Secondary malignant neoplasm of brain; M50.30 Other cervical disc degeneration, unspecified cervical region; M48.02 Spinal stenosis, cervical region; M51.36 Other intervertebral disc degeneration, lumbar region; M48.061 Spinal stenosis, lumbar region without neurogenic claudication; I10 Essential (primary) hypertension; F41.9 Anxiety disorder, unspecified; F32.9 Major depressive disorder, single episode, unspecified; N80.9 Endometriosis, unspecified; Z79.899 Other long term (current) drug therapy
CPT/HCPCS: 36415; 36593; 77067; 77336; 77412; 77417; 80053; 82784; 83615; 83883; 84155; 84156; 84165; 84166; 85025; 96374; 99215; J2997

== ENCOUNTER 2021-07-18 12:22 | Outpatient (CLI) | payer MEDICARE, SELFPAY ==
--- NOTE | 2021-07-18 12:35 | USCV_ITS ---
LynettejeradValentin Age: 71 Gender: F : 1950 Exam Date: 07/18/2021 13:00 Ordering Phys: Kelsi Mccurdy MD ([email or web address]) Technologist: Exam Location: [facility] – [place] Indication: SOB BP: 135 / 76 HR: 64 Rhythm: Sinus Technical Quality: Adequate MEASUREMENTS (Male / Female) Normal Values 2D ECHO LV Diastolic Diameter PLAX 3.3 cm 4.2 - 5.9 / 3.9 - 5.3 cm LV Systolic Diameter PLAX 2.0 cm IVS Diastolic Thickness 1.2 cm 0.6 - 1.0 / 0.6 - 0.9 cm IVS Systolic Thickness 1.3 cm LVPW Diastolic Thickness 1.0 cm 0.6 - 1.0 / 0.6 - 0.9 cm LVPW Systolic Thickness 1.2 cm LVOT Diameter 2.1 cm LV Ejection Fraction 2D Teich 70.7 % LA Diameter 4.0 cm LA Width 3.9 cm LA Height 5.5 cm RA Width 3.9 cm RA Height 5.0 cm Aorta at Sinotubular Diameter 3.1 cm M-MODE LV Diastolic Diameter MM 4.3 cm 4.2 - 5.9 / 3.9 - 5.3 cm LV Systolic Diameter MM 2.9 cm LV Ejection Fraction MM Teich 60.9 % IVS Diastolic Thickness MM 1.0 cm 0.6 - 1.0 / 0.6 - 0.9 cm IVS Systolic Thickness MM 1.4 cm LVPW Diastolic Thickness MM 1.4 cm 0.6 - 1.0 / 0.6 - 0.9 cm LVPW Systolic Thickness MM 1.4 cm RV Diastolic Diameter MM 2.2 cm MV E Point Septal Separation 0.9 cm DOPPLER AV Peak Velocity 150.0 cm/s LVOT Peak Velocity 124.0 cm/s AV Area Cont Eq vti 2.9 cm squared AV Area Cont Eq pk 2.8 cm squared MV Area PHT 5.0 cm squared Mitral E to A Ratio 0.7 MV E' Velocity 43.5 cm/s Mitral E to MV E' Ratio 10.0 Mitral E to LV E' Lateral Ratio 9.6 Mitral E to LV E' Septal Ratio 10.4 TR Peak Velocity 140.3 cm/s TR Peak Gradient 7.9 mmHg TV Peak E Velocity 89.0 cm/s Right Atrial Pressure 3.0 mmHg Pulmonary Artery Systolic Pressu 10.9 mmHg FINDINGS Left Ventricle Normal left ventricular size, systolic function and wall thickness, with no regional wall motion abnormalities. Left ventricular ejection fraction is estimated at 60 %. Grade I diastolic dysfunction (abnormal relaxation filling pattern), normal to mildly elevated filling pressures. Right Ventricle Normal right ventricular size and systolic function. Right ventricular systolic pressure 10.9 mmHg. Right Atrium Normal right atrial size. Left Atrium Normal left atrial size. Mitral Valve Structurally normal mitral valve. No mitral valve stenosis. Trace mitral valve regurgitation. Aortic Valve Structurally normal trileaflet aortic valve. No aortic valve stenosis. No aortic valve regurgitation. Tricuspid Valve Structurally normal tricuspid valve. Trace to mild tricuspid valve regurgitation. Pulmonic Valve Structurally normal pulmonic valve. No pulmonary valve stenosis. No pulmonary valve regurgitation. Pericardium No pericardial effusion. Aorta Normal size aortic root and proximal ascending aorta. CONCLUSIONS 1. Normal left ventricular size, systolic function and wall thickness, with no regional wall motion abnormalities. Left ventricular ejection fraction is estimated at 60 %. Grade I diastolic dysfunction (abnormal relaxation filling pattern), normal to mildly elevated filling pressures. 2. Trace to mild tricuspid valve regurgitation. 3. Normal pulmonary artery pressure. 4. No pericardial effusion. 5. Direct comparison to previous study is not possible due to technically difficult study Kelsi Mccurdy MD (Electronically Signed) Final Date: 21 July 2021 18:10 S
== END 2021-07-18 12:23 | disposition home or self-care (01) ==
LOC: RAD 12:26
PROVIDERS: PCP Electrodiagnostic Medicine; Visit Provider Internal Medicine Cardiovascular Disease
DX: I48.91 Unspecified atrial fibrillation (principal); R06.02 Shortness of breath; I07.1 Rheumatic tricuspid insufficiency
CPT/HCPCS: 93306

== ENCOUNTER 2021-07-24 10:13 | Outpatient (CLI) | payer MEDICARE, SELFPAY ==
--- NOTE | 2021-07-24 10:17 | MR_ITS ---
WS: [id number] MRI HEAD WITH CONTRAST TECHNIQUE: Sagittal T1, T2 axial, T2 axial FLAIR, axial susceptibility weighted imaging, axial diffus ion weighted images, and coronal T2 images were obtained. Pre and post-T1 axial and post T1 coronal i mages. ADC and FSPGR images. CLINICAL INFORMATION: RESTAGING FOR MYELOMA COMPARISON: Multiple prior MRIs most recent February 26, 2021 FINDINGS: Prior postoperative changes right parietal craniectomy with postoperative enhancement involving the u nderlying resection cavity. This is stable in appearance since the prior studies. No evidence of incr easing edema or mass effect. No evidence of progressive parenchymal disease. Again seen are multiple enhancing calvarial lesions bilaterally similar to the prior examination. Lar gest in the right parietal calvarium measuring 1.8 cm is unchanged compared to previous. No evidence of restricted diffusion to suggest acute ischemia. Ventricular system and basal cisterns are patent. Moderate small vessel changes with moderate parenchymal volume loss. Small vessel change s in the ritu. 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 Chronic lacunar infarcts in the cerebellum. Normal vascular flow voids at the skull base. Mild mucosa l thickening in the mastoid air cells. Paranasal sinuses are well aerated. MR/MR head wo/w con [id number] IMPRESSION: 1. Prior postoperative changes right parietal occipital craniectomy with soft tissue scalp defect unchanged in appearance since the prior examination. 2. No evidence of recurrent or progressed parenchymal disease. Stable enhancem ent about the resection cavity. 3. Stable enhancing myelomatous calvarial lesions largest in the right parieta l calvarium measuring 1.8 cm unchanged. 4. 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 5. No other significant changes from previous.
[2021-07-24] MEDS: gadobenate dimeglumine 20 mL vial IV (11:56)
== END 2021-07-24 10:14 | disposition home or self-care (01) ==
LOC: RADSHAW 10:15
PROVIDERS: PCP Electrodiagnostic Medicine; Visit Provider Internal Medicine Medical Oncology
DX: C90.00 Multiple myeloma not having achieved remission (principal); I63.9 Cerebral infarction, unspecified; G93.89 Other specified disorders of brain
CPT/HCPCS: 70553; A9577

== ENCOUNTER 2021-07-25 06:06 | Outpatient (CLI) | payer MEDICARE, SELFPAY ==
[2021-07-25 12:56] LABS: Basophils # 0.1 10^3/uL (0.0-0.1); Eosinophils # 0.1 10^3/uL (0.0-0.8); Eosinophils % 1.5 %; Hematocrit 37.1 % (37.0-47.0); Hemoglobin 11.9 g/dL (11.5-15.3); Lymphocytes # 2.2 10^3/uL (0.8-4.8); Mean Corpuscular HGB Conc 32.1 g/dL (30.0-36.0); Mean Corpuscular Hemoglobin 28.5 pg (28.0-34.0); Monocytes # 0.7 10^3/uL (0.2-0.9); Monocytes % 11.1 %; Neutrophils # 2.95 10^3/uL (1.8-7.7); Neutrophils % 49.4 %; Nucleated Red Blood Cells % 0 %; Platelet Count 176 10^3/cmm (130-400); Red Blood Count 4.17 10^6/uL (4.1-5.3); Red Cell Distribution Width 15.7 % (12.1-15.1)
[2021-07-25 13:24] LABS: Alanine Aminotransferase 11 U/L (0-33); Albumin Level 3.5 g/dL (3.5-5.2); Alkaline Phosphatase 96 IU/L (35-105); Anion Gap 11.3 (5-19); Aspartate Amino Transferase 19 U/L (0-32); Blood Urea Nitrogen 8 mg/dL (8-23); Calcium 8.3 mg/dL (8.5-10.5); Carbon Dioxide 26 mmol/L (22-29); Chloride 102 mmol/L (98-107); Globulin 2.1 g/dL (1.3-4.6); Glomerular Filtration Rate 82.7 mL/min (90-130); Glucose 87 mg/dL (65-115); Immunoglobulin IGA 50 mg/dL (70-400); Immunoglobulin IGG 394 mg/dL (700-1600); Immunoglobulin IGM 25 mg/dL (40-230); Lactate Dehydrogenase 104 U/L (135-214); Osmolality Calculated 280 mOsm/kg (285-295); Potassium 3.3 mmol/L (3.5-5.1); Sodium 136 mmol/L (136-145); Total Bilirubin 0.3 mg/dL (0.15-1.2); Total Protein 5.6 g/dL (6.6-8.7)
[2021-07-25] MEDS: sodium chloride 0.9% 500 ML 999 ML IV (13:55)
[2021-07-25] MEDS: ondansetron 2 mg/ML SDV 2 mL 8 MG IVP (14:25)
[2021-07-25] MEDS: dexamethasone 4 mg Tablet 20 MG PO (14:25)
[2021-07-25] MEDS: acetaminophen 325 mg Tablet 650 MG PO (14:25)
[2021-07-25] MEDS: famotidine 20 mg/2 mL INJ IVP (14:26)
[2021-07-25] MEDS: diphenhydrAMINE 50 mg/mL SDV 1mL 25 MG IVP (14:28)
[2021-07-26 07:37] LABS: PROTEIN, TOTAL 5.5 g/dL (6.1-8.1)
[2021-07-26 13:02] LABS: KAPPA LIGHT CHAIN, FREE, SERUM 19.4 mg/L (3.3-19.4); KAPPA/LAMBDA LIGHT CHAINS FREE 0.44 (0.26-1.65); LAMBDA LIGHT CHAIN, FREE, SERU 44.2 mg/L (5.7-26.3)
--- NOTE | 2021-07-27 13:23 | ONC FU_ITS ---
Dr. Rodriguez Patient Follow-Up Note Patient: Valentin Clark Unit #: [id number]: 1950 Dicatated By: Ruiz Rodriguez M.D.Date of Visit:Jul 25, 2021 Onc Med Follow-up/Prog Note Chief Complaint: Mulitple myeloma. 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 In March 2018 she had bumped her head at work and in the process of that she became aware of a small lump, though it was actually in a slightly different area. She then noticed that the lump was getting larger. Evaluation with head MRI on 06/07/2018 showed evidence of a right parietal occipital extra-axial neoplasm, felt to be most likely meningeal in origin. It was noted to exert mass effect on the right parietal and occipital lobes, but without associated midline shift or white matter parenchymal edema. The lesion was noted to invade through the calvarium and into the subcutaneous parietal occipital scalp soft tissues. The mass measured 5.7 x 3.5 x 6 cm. 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 The area of occlusion was noted to extend over approximately 4.3 cm. She was seen by Dr. Landry and subsequently referred for neurosurgery evaluation at [facility]. Initially they had considered possible surgical resection. Her further evaluation there apparently included laboratory findings which were suspicious for myeloma, and it was recommended that she have treatment with radiation. She was seen here for further management on 07/14/2018. She then returned to Dr. Landry, and on 07/20/2018 she underwent open biopsy/resection of the extracranial extent of the mass. 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 Her further evaluation included protein electrophoresis which showed an IgG lambda monoclonal protein in the serum quantitating at 0.48 g/dL. The serum free light chain assay showed elevated lambda light chain at 374.65 mg/L with decreased kappa/lambda ratio at 0.06. The 24-hour urine protein electrophoresis showed no monoclonal protein. There were no other areas of lytic bone involvement noted on her skeletal survey. Bone marrow aspiration/biopsy on 07/30/2018 showed a monotypic plasma cell population, but it comprised only 2% of the total cellularity. A FISH panel for myeloma was unrevealing, and the standard chromosome analysis was normal. She was referred to Dr. Kaur, and she began radiation to the lesion on 07/30/2018. She completed treatment on 09/02/2018 to a total dose of 5,000 cGy. She had evaluation with CT pulmonary angiogram on 09/14/2018. It showed moderate bilateral pulmonary embolic burden. She began on anticoagulation with apixaban. During her subsequent follow-up she continued to have an open wound at the site of the plasmacytoma in the parietal-occipital scalp region. As of her follow-up visit on 10/19/2018 her M protein was stable 0.37 g/dL. In the absence of any evidence of symptomatic myeloma, she had otherwise just continued on observation/expectant management. However, due to her persistent scalp wound she had a repeat brain MRI on 01/11/2019. It showed evidence of residual neoplastic process at the resection site. There was associated dural involvement but with improved signal characteristics and decreased enhancement compared to the study from September 2018. She had further evaluation with PET/CT on 02/03/2019. It showed increase in size and expansile hypermetabolic lesion within the left ilium with extension of hypermetabolic tumor into the adjacent left iliac muscle. There was a new hypermetabolic lytic process within the right S1/S2 region. A large lytic mass within the posterior calvarium did not appear to have active hypermetabolism. Also noted, though, was a hypermetabolic lesion within the medullary canal of the distal left femoral diametaphysis and an additional hypermetabolic focus in the anterior cortex of the distal right femur concerning for additional areas of myeloma. In the setting of obvious progression of her myeloma, she began treatment with VRd on 02/23/2019. At that time she also received an infusion of IV Zometa for the lytic bone involvement. She experienced multiple toxicities with the VRd regimen, requiring dose reductions and treatment delays. Beginning with cycle 4, and June 2019 the Velcade was dropped from the regimen, and the following month her treatment was put on hold due to multiple toxicities, mainly severe fatigue and excessive somnolence. She was found to have a low B12 level, for which she began on B12 replacement therapy. At her follow-up visit on 11/28/2019 she was still mildly anemic, and transferrin saturation was still low at 17% despite being on oral iron replacement. As such, she was then given parenteral iron replacement with infusions of Injectafer on 11/28/2019 and on 12/05/2019. With the 11/28 visit she also was given denosumab 120 mg by subcutaneous injection for the lytic bone involvement. On 12/06/2019 she was admitted to the hospital with symptomatic hypocalcemia, serum calcium 5.9 mg/dL with albumin 2.9 g/dL. Renal function was stable with creatinine 1.0 mg/dL, but her potassium also was low at 3.2 mmol/L. She was given IV calcium and potassium replacement. She then continued further IV replacement as an outpatient. Despite that she was readmitted to the hospital with hypocalcemia on 12/15/2019. She was discharged home on 12/23/2019. Her evaluation included CT pulmonary angiogram which showed no evidence of pulmonary embolism. There was evidence of cardiomegaly, a small pericardial effusion, and small bilateral pleural effusions. Echocardiogram showed small, hemodynamically insignificant pericardial effusion and normal left ventricular function. She then returned here on 12/27/2019 and she has since then continued IV fluid and electrolyte replacement, daily for the first week and then on Mondays, Wednesdays, and Fridays. Despite that, she continued to feel weak and shaky, and she had ongoing complaints of nausea and anorexia. She continued to require IV fluid and electrolyte replacement but she did show gradual recovery. Her further treatment remained on hold. Repeat protein electrophoresis on 01/16/2020 showed stable M protein at 0.4 g/dL. The serum free light chain assay showed elevated free lambda light chain at 254 mg/L with decreased kappa/lambda ratio at 0.16. There was no monoclonal protein identified in the 24-hour urine protein electrophoresis. Restaging PET/CT on 02/24/2020 showed findings concerning for disease progression with new areas of marrow hypermetabolism within the right proximal humerus and within the bilateral distal femoral diametaphysis. The existing areas of involvement within the left ilium and sacrum showed further decrease in FDG uptake. With those findings, I had recommended that she proceed to second line treatment with daratumumab/dexamethasone. She eventually was able to begin her initial infusion of daratumumab on 03/21/2020. Her repeat free light chain assay prior to that showed further increase in the lambda light chain to 537 mg/L with kappa/lambda ratio 0.06. She tolerated the daratumumab with no adverse effects, and she then continued treatment weekly. On 05/03/2020 she underwent EGD and colonoscopy by Dr. Jimenes. The EGD showed no significant abnormal findings, and the colonoscopy showed just 2 small polyps in the rectum. 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 As of 05/09/2020 she had completed her 8th infusion on the weekly schedule, and as of 05/16/2020 she received her 1st of 8 planned infusions at the 2-week interval. Her M protein at that point was stable at 0.4 g/dL. The free light chain assay showed a decrease in the free lambda light chain from 537.42 205.2 mg/L. However, her repeat head MRI on 06/05/2020 showed significant progression of the myelomatous lesions within the skull compared to the study from January 2020. Numerous calvarial lesions were now present, the largest in the right parietal bone measuring 2.2 cm. The postoperative resection site in the posterior right parietal lobe showed significantly more enhancement with slightly more dural enhancement, also suspicious for progression of neoplastic changes. With that finding, she had continued the daratumumab and dexamethasone, but beginning on 06/27/2020 she added pomalidomide at a reduced dosage of 2 mg daily on a 21/28-day schedule. Her repeat PET/CT on 07/12/2020 showed a large lytic lesion within the posterior right calvarium, but without associated hypermetabolism. There were no new lesions identified within the calvarium. There was persistent hypermetabolism noted within the proximal right humerus, SUV 3.6, and there was new hypermetabolism within the marrow of the proximal left humerus, SUV 3.6. There was decrease in FDG uptake within the medial left ilium. There was persistent hypermetabolism noted in the right femoral diametaphysis and in the distal left femoral diametaphysis. There was new hypermetabolism noted in the proximal left tibia. Overall the findings were concerning for disease progression, and she was recommended to undergo a trial of salvage therapy with belantamab [id number]. Her other medical illnesses include hypertension and degenerative arthritis/degenerative disease of the spine. She has associated cervical and lumbar spinal stenosis. She has a history of endometriosis, and she has anxiety/depression. She is a nonsmoker. INTERIM HISTORY: On 08/29/2020 she began cycle 1 of belantamab [id number]. She tolerated the initial infusion without acute toxicity. She continued with cycle 2 on 09/19/2020. Her further management was then complicated by COVID-19 virus infection and by left upper extremity deep vein thrombosis for which she underwent revascularization of the left innominate vein and manual thrombectomy of the left subclavian vein. She was then able to continue the belantamab-mafodotin at 3-week intervals. As of 02/11/2021 she had completed her 5th cycle. Her further treatment was then put on hold due to visual symptoms, though her repeat eye exam in February had shown only grade 1 changes. Repeat head MRI on 02/26/2021 showed no evidence of recurrent or progressed disease. There is stable enhancement about the resection cavity in the right parieto-occipital area. Multiple enhancing myelomatous lesions involving the underlying calvarium appeared stable. The largest was in the right parietal calvarium measuring 1.8 cm. 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 There was associated encephalomalacia and gliosis. Restaging PET/CT on 03/15/2021 showed a small focus of increased tracer accumulation in the soft tissues/bone marrow of the right posterior skull with maximum SUV 4.70. That area had not been included on the previous study, so it could not be compared. However, the appearance was consistent with residual myeloma. Also noted was stable mild increased metabolic activity in the left proximal humerus with maximum SUV 3.03. There was no focal increase in the right proximal humerus, noted to have resolved compared to the prior study. Also noted was resolution of previously described metabolic increased activity in the left proximal fibula and in both distal femoral metadiaphyses. Overall the study was noted to be significantly improved. As of her follow-up visit on 05/07/2021 she was showing some decline in performance status. She reported having new pain in her back and she reported increased pain in her right shoulder. MRI of the right shoulder on 05/27/2021 showed an enhancing intramedullary lesion centered in the right humeral head measuring 3.5 x 1.9 cm. A smaller adjacent satellite lesion was noted to extend towards the greater tuberosity. The findings were most consistent with metastatic sites from the myeloma. She was seen by Dr. Bah for palliative radiation. She had had further evaluation with MRI of the left shoulder which showed an intramedullary T2 hyperintense enhancing lesion in the left humeral head measuring 2.6 x 2.1 x 4.1 cm. With those findings, she underwent palliative radiation to the right shoulder. Treatment was completed on 07/08/2021 to a total dose of 3000 cGy administered in 10 fractions. Repeat head MRI on 07/24/2021 showed stable postoperative findings associated with the previous right parietal occipital craniectomy. Enhancing myelomatous calvarial lesions, the largest in the right parietal calvarium measuring 1.8 cm, also appeared stable. There was no evidence for recurrent or progressed parenchymal disease. There was evidence for chronic infarcts in the left cerebellum with associated encephalomalacia and gliosis. She is seen for a follow-up visit. She reports having increased pain in her right shoulder and arm since yesterday. It started following some minor activity. She is having to push herself, but she is still doing light work. ECOG score is 1. Her appetite is not good, she is eating. She has not had fever. She reports having a little bit of sweating. She has not had sore mouth or throat. She has a slight cough and she has a little bit of shortness of breath. She does not complain of chest pain. She has little waves of nausea now and then. She has just occasional diarrhea. She has frequent urination. She also reports having pain in her right hip area laterally. She sometimes has headache. She complains that she is off balance, and she is occasionally lightheaded. She has some numbness in her right leg. She has no other focal neurologic symptoms. Medications: Albuterol Sulfate HFA Aerosol, solution Inhalation PRN, Arthritis Pain Reliever 2 Gm/60mL (of 1 %) Gel (jelly) Topical PRN, Aspirin 1 Tablet (of 81 mg) Tablet, chewable Oral daily, B-12 Dots 1 Tablet (of 500 mcg) Tablet Dispersable Oral daily, Claritin 1 Capsule (of 10 mg) Oral daily PRN, Eliquis 1 Tablet (of 5 mg) Oral b.i.d., FLUoxetine HCl 1 Tablet (of 10 mg) Oral daily, FLUoxetine HCl 1 Capsule (of 20 mg) Oral daily, HYDROcodone-Acetaminophen 1 - 2 Tablet (of 5-325 mg) Oral q 4 to 6 hours PRN, Lasix 1 - 2 Tablet (of 40 mg) Oral PRN, LORazepam 1 Tablet (of 0.5 mg) Oral b.i.d. PRN, Probiotic Capsule Oral PRN, RA Senna 1 Capsule (of 8.6 mg) Oral daily PRN, Vitamin D3 Super Strength 1 Capsule (of 50 mcg ) Oral b.i.d. Allergies: BusPIRone HCl, Codeine and Related, Levaquin, and Morphine Derivatives. Vital Signs: Performed on Jul 25, 2021 13:52 Height - 63.50 in Weight - 207.4 lbs (HIGH) BSA - 1.98 sq.m BMI - 36.16 (HIGH) Temperature - 98.6 F Pulse - 82 /min Respiration - 18 /min BP - 155/81 mm(hg) (HIGH) O2 Sat - 97 % Pain - 9 Fatigue - 0 Physical Examination: Constitutional - She appears somewhat weak generally, Eyes - Sclerae nonicteric. Conjunctivae clear, ENMT - No lesions noted in the oral cavity, Hematologic/Lymphatic - No cervical, clavicular, or axillary adenopathy, Respiratory - Lungs sound clear, Cardiovascular - Heart rhythm is regular. There is a II/ systolic murmur. There is no gallop or rub noted, Abdomen - Mildly distended but soft. Liver and spleen are not enlarged. There is no abdominal mass or ascites noted and there is no inguinal adenopathy, Extremities - No edema, Neurologic - No focal neurologic deficits noted. Lab/Imaging: Test performed on Jul 25, 2021 12:10 LDH (Total) 104 U/L Sodium 136 mmol/L Potassium 3.3 mmol/L Chloride 102 mmol/L CO2 26 mmol/L Anion Gap 11.3 BUN 8 mg/dL Creatinine 0.7 mg/dL Cr Clearance (Est) 108.6000 mL/min eGFR 82.7 mL/min Glucose 87 mg/dL Osmolality - Calculated 280 mOsm/kg Calcium 8.3 mg/dL Protein, Total 5.6 g/dL Albumin 3.5 g/dL Globulin 2.1 g/dL Bilirubin, Total 0.3 mg/dL ALT (SGPT) 11 U/L AST (SGOT) 19 U/L Alkaline Phosphatase 96 IU/L WBC 6.0 10 3/uL RBC 4.17 10 6/uL HGB 11.9 g/dL HCT 37.1 % MCV 89.0 fl MCH 28.5 pg MCHC 32.1 g/dL RDW 15.7 % Platelet Count 176 10 3/cmm MPV 12.0 fL Neutrophils 2.95 10 3/uL Lymphocytes 2.2 10 3/uL Monocytes 0.7 10 3/uL Eosinophils 0.1 10 3/uL Basophils 0.1 10 3/uL Neutrophil % 49.4 % Lymphocyte % 36.0 % Monocyte % 11.1 % Eosinophil % 1.5 % Basophils % 2.0 % NRBC % 0 % [place] Free Light Chains 19.4 mg/L Lambda Free Light Chains 44.2 mg/L IgA 50 mg/dL [place]/Lambda Free Ratio 0.44 Problem List: 1. IgG lambda myeloma presenting with plasmacytoma involving the right parietal-occipital extra-axial space. She underwent resection/open biopsy of the extracranial portion of the mass on 07/20/2018. 2. She has persistent open wound at the biopsy site. 3. She has had thromboembolism with pulmonary emboli documented by CT pulmonary angiogram on 09/14/2018. She developed left upper extremity deep vein thrombosis in October 2020 in association with COVID-19 virus infection. She required hospitalization in November 2020 for revascularization of the left innominate vein and manual thrombectomy of the left subclavian vein. 4. Degenerative arthritis and degenerative disease of the spine with associated cervical and lumbar spinal stenosis. 5. Hypertension. 6. Endometriosis. 7. Anxiety/depression. Problems Addressed with this Encounter and Plan: 1. Patient with IgG lambda myeloma presenting with plasmacytoma involving the right parietal-occipital extra-axial space. She underwent resection/open biopsy of the extracranial portion of the mass on 07/20/2018. She then underwent radiation, completed on 09/02/2018 to a total dose of 5000 cGy. She had associated IgG lambda monoclonal protein in the serum and 2% monoclonal plasma cells in the bone marrow, consistent with underlying myeloma. Initially it appeared to otherwise not be symptomatic, and she was followed expectantly following completion of the radiation. By January 2019 she had developed increasing pain in the left hip/buttock area. Her repeat protein electrophoresis studies showed only a slight increase in her M protein, but her repeat PET/CT on 02/03/2019 showed significant progression of lytic bone involvement in the left ilium. There was also possible involvement in the distal right femur. The area of lytic involvement in the calvarium was not metabolically active. Her subsequent myeloma therapies included: 1. Velcade/Revlimid/dexamethasone beginning 02/23/2019. She had multiple toxicities, requiring dose reductions and treatment delays. As of July 2019 she was transitioned to maintenance Revlimid at 5 mg daily. 2. Second line treatment with daratumumab/dexamethasone began 03/21/2020. As of 06/27/2020 pomalidomide was added at a reduced dosage. She tolerated the pomalidomide very poorly due to [employer] side effects. Treatment was then stopped due to evidence of disease progression by PET/CT on 07/12/2020. 3. She began salvage therapy with belantamab mafodotin 08/29/2020. That treatment was interrupted when she was confirmed to have COVID-19 virus infection following the 2nd cycle. It was restarted in December 2020. It was stopped after the 5th cycle, administered on 02/11/2021, due to visual changes. She appeared to have significant response by follow-up PET/CT on 03/15/2021. However, with her persistent visual symptoms, she opted to remain off treatment. During subsequent follow-up she had reported increasing pain in the right shoulder. 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 She was given palliative radiation to the right shoulder, completed on 07/08/2021 to a total dose of 3000 cGy, ministered in 10 fractions. She had some improvement in the pain with the radiation. With evidence of disease progression, she is now going to continue further treatment with carfilzomib/dexamethasone. The carfilzomib will be administered on a standard day 1/2, day 8/9, and day 15/16 schedule to minimize the risk of toxicities. She is advised that there is potential for cardiac toxicity. Her baseline echocardiogram showed adequate LV function with estimated ejection fraction at 60%. Other side effects may include infusion reaction, fatigue, low blood counts, and neuropathy, among others. She will begin treatment today. She will be scheduled for a follow-up visit in 1 week. 2. 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 3. She has had thromboembolism including pulmonary emboli in August 2018 and left upper extremity deep vein thrombosis while on anticoagulation. She continues her anticoagulation with apixaban 5 mg twice daily. Signed By: Ruiz Rodriguez M.D. <<Signature on File>>
[2021-07-29 14:32] LABS: ABNORMAL PROTEIN BAND 1 0.2 g/dL (NONE DETECTED); ALBUMIN 3.4 g/dL (3.8-4.8); ALPHA 1 GLOBULIN 0.2 g/dL (0.2-0.3); ALPHA 2 GLOBULIN 0.6 g/dL (0.5-0.9); BETA 1 GLOBULIN 0.6 g/dL (0.4-0.6); BETA 2 GLOBULIN 0.3 g/dL (0.2-0.5); GAMMA GLOBULIN 0.4 g/dL (0.8-1.7)
== END 2021-07-25 06:07 | disposition home or self-care (01) ==
LOC: ONCMED 06:07
PROVIDERS: PCP Electrodiagnostic Medicine; Visit Provider Internal Medicine Medical Oncology
DX: Z51.11 Encounter for antineoplastic chemotherapy (principal); C90.00 Multiple myeloma not having achieved remission; I10 Essential (primary) hypertension; N80.9 Endometriosis, unspecified; F41.8 Other specified anxiety disorders; Z86.718 Personal history of other venous thrombosis and embolism; Z79.01 Long term (current) use of anticoagulants; Z79.899 Other long term (current) drug therapy; Z79.51 Long term (current) use of inhaled steroids; Z79.82 Long term (current) use of aspirin
CPT/HCPCS: 80053; 82784; 83615; 83883; 84155; 84165; 85025; 96361; 96375; 96413; 99215; J1200; J2405; J3490; J7040; J8540; J9047

== ENCOUNTER 2021-07-26 08:58 | Outpatient (CLI) | payer MEDICARE, SELFPAY ==
[2021-07-26] MEDS: sodium chloride 0.9% 500 ML 999 ML IV (09:40)
[2021-07-26] MEDS: dextrose 5% 250 ML 75 ML IV (09:40)
[2021-07-26] MEDS: acetaminophen 325 mg Tablet 650 MG PO (10:18)
[2021-07-26] MEDS: dexamethasone 4 mg Tablet 20 MG PO (10:18)
[2021-07-26] MEDS: ondansetron 2 mg/ML SDV 2 mL 8 MG IV (10:18)
[2021-07-26] MEDS: famotidine 20 mg/2 mL INJ IVP (10:19)
[2021-07-26] MEDS: diphenhydrAMINE 50 mg/mL SDV 1mL 25 MG IV (10:20)
== END 2021-07-26 08:59 | disposition home or self-care (01) ==
LOC: ONCMED 09:00
PROVIDERS: PCP Electrodiagnostic Medicine; Visit Provider Internal Medicine Medical Oncology
DX: Z51.11 Encounter for antineoplastic chemotherapy (principal); C90.00 Multiple myeloma not having achieved remission; C79.51 Secondary malignant neoplasm of bone; Z79.899 Other long term (current) drug therapy
CPT/HCPCS: 96375; 96413; J1200; J2405; J3490; J7040; J8540; J9047

== ENCOUNTER 2021-07-31 06:01 | Outpatient (CLI) | payer MEDICARE, SELFPAY ==
[2021-07-31 10:54] LABS: Basophils # 0.1 10^3/uL (0.0-0.1); Basophils % 0.8 %; Eosinophils # 0.1 10^3/uL (0.0-0.8); Eosinophils % 2.2 %; Hematocrit 38.6 % (37.0-47.0); Hemoglobin 12.5 g/dL (11.5-15.3); Lymphocytes # 2.1 10^3/uL (0.8-4.8); Lymphocytes % 36.1 %; Mean Corpuscular HGB Conc 32.4 g/dL (30.0-36.0); Mean Corpuscular Hemoglobin 28.5 pg (28.0-34.0); Mean Corpuscular Volume 87.9 fl (81-99); Monocytes # 0.5 10^3/uL (0.2-0.9); Monocytes % 9.1 %; Neutrophils # 3.06 10^3/uL (1.8-7.7); Neutrophils % 51.6 %; Nucleated Red Blood Cells % 0 %; Platelet Count 201 10^3/cmm (130-400); Red Blood Count 4.39 10^6/uL (4.1-5.3); Red Cell Distribution Width 15.7 % (12.1-15.1); White Blood Count 5.9 10^3/uL (4.0-10.0)
[2021-07-31 11:14] LABS: Alanine Aminotransferase 18 U/L (0-33); Albumin Level 3.5 g/dL (3.5-5.2); Alkaline Phosphatase 96 IU/L (35-105); Anion Gap 12.3 (5-19); Aspartate Amino Transferase 25 U/L (0-32); Blood Urea Nitrogen 12 mg/dL (8-23); Calcium 8.3 mg/dL (8.5-10.5); Carbon Dioxide 26 mmol/L (22-29); Chloride 108 mmol/L (98-107); Glomerular Filtration Rate 82.7 mL/min (90-130); Glucose 95 mg/dL (65-115); Osmolality Calculated 296 mOsm/kg (285-295); Potassium 3.3 mmol/L (3.5-5.1); Sodium 143 mmol/L (136-145); Total Bilirubin 0.4 mg/dL (0.15-1.2); Total Protein 5.5 g/dL (6.6-8.7)
[2021-07-31 11:29] LABS: Vitamin B12 463 pg/mL (232-1245)
--- NOTE | 2021-07-31 17:58 | ONC FU_ITS ---
Dr. Rodriguez Patient Follow-Up Note Patient: Valentin Clark Unit #: [id number]: 1950 Dicatated By: Ruiz Rodriguez M.D.Date of Visit:Jul 31, 2021 Onc Med Follow-up/Prog Note Chief Complaint: Mulitple myeloma. 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 In March 2018 she had bumped her head at work and in the process of that she became aware of a small lump, though it was actually in a slightly different area. She then noticed that the lump was getting larger. Evaluation with head MRI on 06/07/2018 showed evidence of a right parietal occipital extra-axial neoplasm, felt to be most likely meningeal in origin. It was noted to exert mass effect on the right parietal and occipital lobes, but without associated midline shift or white matter parenchymal edema. The lesion was noted to invade through the calvarium and into the subcutaneous parietal occipital scalp soft tissues. The mass measured 5.7 x 3.5 x 6 cm. 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 The area of occlusion was noted to extend over approximately 4.3 cm. She was seen by Dr. Landry and subsequently referred for neurosurgery evaluation at [facility]. Initially they had considered possible surgical resection. Her further evaluation there apparently included laboratory findings which were suspicious for myeloma, and it was recommended that she have treatment with radiation. She was seen here for further management on 07/14/2018. She then returned to Dr. Landry, and on 07/20/2018 she underwent open biopsy/resection of the extracranial extent of the mass. 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 Her further evaluation included protein electrophoresis which showed an IgG lambda monoclonal protein in the serum quantitating at 0.48 g/dL. The serum free light chain assay showed elevated lambda light chain at 374.65 mg/L with decreased kappa/lambda ratio at 0.06. The 24-hour urine protein electrophoresis showed no monoclonal protein. There were no other areas of lytic bone involvement noted on her skeletal survey. Bone marrow aspiration/biopsy on 07/30/2018 showed a monotypic plasma cell population, but it comprised only 2% of the total cellularity. A FISH panel for myeloma was unrevealing, and the standard chromosome analysis was normal. She was referred to Dr. Kaur, and she began radiation to the lesion on 07/30/2018. She completed treatment on 09/02/2018 to a total dose of 5,000 cGy. She had evaluation with CT pulmonary angiogram on 09/14/2018. It showed moderate bilateral pulmonary embolic burden. She began on anticoagulation with apixaban. During her subsequent follow-up she continued to have an open wound at the site of the plasmacytoma in the parietal-occipital scalp region. As of her follow-up visit on 10/19/2018 her M protein was stable 0.37 g/dL. In the absence of any evidence of symptomatic myeloma, she had otherwise just continued on observation/expectant management. However, due to her persistent scalp wound she had a repeat brain MRI on 01/11/2019. It showed evidence of residual neoplastic process at the resection site. There was associated dural involvement but with improved signal characteristics and decreased enhancement compared to the study from September 2018. She had further evaluation with PET/CT on 02/03/2019. It showed increase in size and expansile hypermetabolic lesion within the left ilium with extension of hypermetabolic tumor into the adjacent left iliac muscle. There was a new hypermetabolic lytic process within the right S1/S2 region. A large lytic mass within the posterior calvarium did not appear to have active hypermetabolism. Also noted, though, was a hypermetabolic lesion within the medullary canal of the distal left femoral diametaphysis and an additional hypermetabolic focus in the anterior cortex of the distal right femur concerning for additional areas of myeloma. In the setting of obvious progression of her myeloma, she began treatment with VRd on 02/23/2019. At that time she also received an infusion of IV Zometa for the lytic bone involvement. She experienced multiple toxicities with the VRd regimen, requiring dose reductions and treatment delays. Beginning with cycle 4, and June 2019 the Velcade was dropped from the regimen, and the following month her treatment was put on hold due to multiple toxicities, mainly severe fatigue and excessive somnolence. She was found to have a low B12 level, for which she began on B12 replacement therapy. At her follow-up visit on 11/28/2019 she was still mildly anemic, and transferrin saturation was still low at 17% despite being on oral iron replacement. As such, she was then given parenteral iron replacement with infusions of Injectafer on 11/28/2019 and on 12/05/2019. With the 11/28 visit she also was given denosumab 120 mg by subcutaneous injection for the lytic bone involvement. On 12/06/2019 she was admitted to the hospital with symptomatic hypocalcemia, serum calcium 5.9 mg/dL with albumin 2.9 g/dL. Renal function was stable with creatinine 1.0 mg/dL, but her potassium also was low at 3.2 mmol/L. She was given IV calcium and potassium replacement. She then continued further IV replacement as an outpatient. Despite that she was readmitted to the hospital with hypocalcemia on 12/15/2019. She was discharged home on 12/23/2019. Her evaluation included CT pulmonary angiogram which showed no evidence of pulmonary embolism. There was evidence of cardiomegaly, a small pericardial effusion, and small bilateral pleural effusions. Echocardiogram showed small, hemodynamically insignificant pericardial effusion and normal left ventricular function. She then returned here on 12/27/2019 and she has since then continued IV fluid and electrolyte replacement, daily for the first week and then on Mondays, Wednesdays, and Fridays. Despite that, she continued to feel weak and shaky, and she had ongoing complaints of nausea and anorexia. She continued to require IV fluid and electrolyte replacement but she did show gradual recovery. Her further treatment remained on hold. Repeat protein electrophoresis on 01/16/2020 showed stable M protein at 0.4 g/dL. The serum free light chain assay showed elevated free lambda light chain at 254 mg/L with decreased kappa/lambda ratio at 0.16. There was no monoclonal protein identified in the 24-hour urine protein electrophoresis. Restaging PET/CT on 02/24/2020 showed findings concerning for disease progression with new areas of marrow hypermetabolism within the right proximal humerus and within the bilateral distal femoral diametaphysis. The existing areas of involvement within the left ilium and sacrum showed further decrease in FDG uptake. With those findings, I had recommended that she proceed to second line treatment with daratumumab/dexamethasone. She eventually was able to begin her initial infusion of daratumumab on 03/21/2020. Her repeat free light chain assay prior to that showed further increase in the lambda light chain to 537 mg/L with kappa/lambda ratio 0.06. She tolerated the daratumumab with no adverse effects, and she then continued treatment weekly. On 05/03/2020 she underwent EGD and colonoscopy by Dr. Jimenes. The EGD showed no significant abnormal findings, and the colonoscopy showed just 2 small polyps in the rectum. 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 As of 05/09/2020 she had completed her 8th infusion on the weekly schedule, and as of 05/16/2020 she received her 1st of 8 planned infusions at the 2-week interval. Her M protein at that point was stable at 0.4 g/dL. The free light chain assay showed a decrease in the free lambda light chain from 537.42 205.2 mg/L. However, her repeat head MRI on 06/05/2020 showed significant progression of the myelomatous lesions within the skull compared to the study from January 2020. Numerous calvarial lesions were now present, the largest in the right parietal bone measuring 2.2 cm. The postoperative resection site in the posterior right parietal lobe showed significantly more enhancement with slightly more dural enhancement, also suspicious for progression of neoplastic changes. With that finding, she had continued the daratumumab and dexamethasone, but beginning on 06/27/2020 she added pomalidomide at a reduced dosage of 2 mg daily on a 21/28-day schedule. Her repeat PET/CT on 07/12/2020 showed a large lytic lesion within the posterior right calvarium, but without associated hypermetabolism. There were no new lesions identified within the calvarium. There was persistent hypermetabolism noted within the proximal right humerus, SUV 3.6, and there was new hypermetabolism within the marrow of the proximal left humerus, SUV 3.6. There was decrease in FDG uptake within the medial left ilium. There was persistent hypermetabolism noted in the right femoral diametaphysis and in the distal left femoral diametaphysis. There was new hypermetabolism noted in the proximal left tibia. Overall the findings were concerning for disease progression, and she was recommended to undergo a trial of salvage therapy with belantamab [id number]. Her other medical illnesses include hypertension and degenerative arthritis/degenerative disease of the spine. She has associated cervical and lumbar spinal stenosis. She has a history of endometriosis, and she has anxiety/depression. She is a nonsmoker. INTERIM HISTORY: On 08/29/2020 she began cycle 1 of belantamab [id number]. She tolerated the initial infusion without acute toxicity. She continued with cycle 2 on 09/19/2020. Her further management was then complicated by COVID-19 virus infection and by left upper extremity deep vein thrombosis for which she underwent revascularization of the left innominate vein and manual thrombectomy of the left subclavian vein. She was then able to continue the belantamab-mafodotin at 3-week intervals. As of 02/11/2021 she had completed her 5th cycle. Her further treatment was then put on hold due to visual symptoms, though her repeat eye exam in February had shown only grade 1 changes. Repeat head MRI on 02/26/2021 showed no evidence of recurrent or progressed disease. There is stable enhancement about the resection cavity in the right parieto-occipital area. Multiple enhancing myelomatous lesions involving the underlying calvarium appeared stable. The largest was in the right parietal calvarium measuring 1.8 cm. 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 There was associated encephalomalacia and gliosis. Restaging PET/CT on 03/15/2021 showed a small focus of increased tracer accumulation in the soft tissues/bone marrow of the right posterior skull with maximum SUV 4.70. That area had not been included on the previous study, so it could not be compared. However, the appearance was consistent with residual myeloma. Also noted was stable mild increased metabolic activity in the left proximal humerus with maximum SUV 3.03. There was no focal increase in the right proximal humerus, noted to have resolved compared to the prior study. Also noted was resolution of previously described metabolic increased activity in the left proximal fibula and in both distal femoral metadiaphyses. Overall the study was noted to be significantly improved. As of her follow-up visit on 05/07/2021 she was showing some decline in performance status. She reported having new pain in her back and she reported increased pain in her right shoulder. MRI of the right shoulder on 05/27/2021 showed an enhancing intramedullary lesion centered in the right humeral head measuring 3.5 x 1.9 cm. A smaller adjacent satellite lesion was noted to extend towards the greater tuberosity. The findings were most consistent with metastatic sites from the myeloma. She was seen by Dr. Bah for palliative radiation. She had had further evaluation with MRI of the left shoulder which showed an intramedullary T2 hyperintense enhancing lesion in the left humeral head measuring 2.6 x 2.1 x 4.1 cm. With those findings, she underwent palliative radiation to the right shoulder. Treatment was completed on 07/08/2021 to a total dose of 3000 cGy administered in 10 fractions. Repeat head MRI on 07/24/2021 showed stable postoperative findings associated with the previous right parietal occipital craniectomy. Enhancing myelomatous calvarial lesions, the largest in the right parietal calvarium measuring 1.8 cm, also appeared stable. There was no evidence for recurrent or progressed parenchymal disease. There was evidence for chronic infarcts in the left cerebellum with associated encephalomalacia and gliosis. With evidence of disease progression she then began further treatment with carfilzomib/dexamethasone with the carfilzomib administered in a standard day 1/2, day day 8/9, and day 15/16 schedule to minimize the risk of toxicity. Her baseline echocardiogram showed adequate LV function with estimated ejection fraction at 60%. She received her day 1/day 2 treatment last week, and she was able to tolerate it without acute toxicity. She is seen now for a follow-up visit. She says she is not feeling good. She is continued have pain in the lower right rib cage/right upper quadrant area. She also complains that her right leg is sore. She complains that she has been having a hard time breathing and she also complains that she is having episodes of quivering from the inside. She has been waking up at night with them. She has limited activity tolerance, but she is still able to do some light work. She says she is making herself eat. She does not have fever or night sweats she has not had sore mouth or throat. She has had a light cough and she does report having heaviness in her chest. She had nausea yesterday and she also complains of belching. She still intermittently has diarrhea. She has frequent urination. She is having this dull pain in the right shoulder and right arm. She has had some headaches. For the past 2 days she has had some episodes of vertigo. She has some numbness on her right side. Medications: Albuterol Sulfate HFA Aerosol, solution Inhalation PRN, Arthritis Pain Reliever 2 Gm/60mL (of 1 %) Gel (jelly) Topical PRN, Aspirin 1 Tablet (of 81 mg) Tablet, chewable Oral daily, B-12 Dots 1 Tablet (of 500 mcg) Tablet Dispersable Oral daily, Claritin 1 Capsule (of 10 mg) Oral daily PRN, Eliquis 1 Tablet (of 5 mg) Oral b.i.d., FLUoxetine HCl 1 Tablet (of 10 mg) Oral daily, FLUoxetine HCl 1 Capsule (of 20 mg) Oral daily, HYDROcodone-Acetaminophen 1 - 2 Tablet (of 5-325 mg) Oral q 4 to 6 hours PRN, Lasix 1 - 2 Tablet (of 40 mg) Oral PRN, LORazepam 1 Tablet (of 0.5 mg) Oral b.i.d. PRN, Probiotic Capsule Oral PRN, RA Senna 1 Capsule (of 8.6 mg) Oral daily PRN, Vitamin D3 Super Strength 1 Capsule (of 50 mcg ) Oral b.i.d. Allergies: BusPIRone HCl, Codeine and Related, Levaquin, and Morphine Derivatives. Vital Signs: Performed on Jul 31, 2021 12:13 Height - 63.50 in Weight - 210.2 lbs (HIGH) BSA - 1.99 sq.m BMI - 36.65 (HIGH) Temperature - 97.2 F (LOW) Pulse - 82 /min Respiration - 18 /min BP - 155/84 mm(hg) (HIGH) O2 Sat - 96 % Pain - 5 Fatigue - 10 Physical Examination: Constitutional - She appears somewhat weak generally, Eyes - Sclerae nonicteric. Conjunctivae clear, ENMT - No lesions noted in the oral cavity, Hematologic/Lymphatic - No cervical, clavicular, or axillary adenopathy, Respiratory - Lungs sound clear, Cardiovascular - Heart rhythm is regular. There is a II/ systolic murmur. There is no gallop or rub noted, Abdomen - Mildly distended but soft. Liver and spleen are not enlarged. There is no abdominal mass or ascites noted and there is no inguinal adenopathy, Extremities - Mild edema, Neurologic - No focal neurologic deficits noted. Lab/Imaging: Test performed on Jul 31, 2021 10:35 Sodium 143 mmol/L Vitamin B12 463 pg/mL Potassium 3.3 mmol/L Chloride 108 mmol/L CO2 26 mmol/L Anion Gap 12.3 BUN 12 mg/dL Creatinine 0.7 mg/dL Cr Clearance (Est) 108.6000 mL/min eGFR 82.7 mL/min Glucose 95 mg/dL Osmolality - Calculated 296 mOsm/kg Calcium 8.3 mg/dL Protein, Total 5.5 g/dL Albumin 3.5 g/dL Globulin 2.0 g/dL Bilirubin, Total 0.4 mg/dL ALT (SGPT) 18 U/L AST (SGOT) 25 U/L Alkaline Phosphatase 96 IU/L WBC 5.9 10 3/uL RBC 4.39 10 6/uL HGB 12.5 g/dL HCT 38.6 % MCV 87.9 fl MCH 28.5 pg MCHC 32.4 g/dL RDW 15.7 % Platelet Count 201 10 3/cmm MPV 12.0 fL Neutrophils 3.06 10 3/uL Lymphocytes 2.1 10 3/uL Monocytes 0.5 10 3/uL Eosinophils 0.1 10 3/uL Basophils 0.1 10 3/uL Neutrophil % 51.6 % Lymphocyte % 36.1 % Monocyte % 9.1 % Eosinophil % 2.2 % Basophils % 0.8 % NRBC % 0 % Test performed on Jul 25, 2021 12:10 LDH (Total) 104 U/L [place] Free Light Chains 19.4 mg/L Lambda Free Light Chains 44.2 mg/L IgA 50 mg/dL [place]/Lambda Free Ratio 0.44 Problem List: 1. IgG lambda myeloma presenting with plasmacytoma involving the right parietal-occipital extra-axial space. She underwent resection/open biopsy of the extracranial portion of the mass on 07/20/2018. 2. She has persistent open wound at the biopsy site. 3. She has had thromboembolism with pulmonary emboli documented by CT pulmonary angiogram on 09/14/2018. She developed left upper extremity deep vein thrombosis in October 2020 in association with COVID-19 virus infection. She required hospitalization in November 2020 for revascularization of the left innominate vein and manual thrombectomy of the left subclavian vein. 4. Degenerative arthritis and degenerative disease of the spine with associated cervical and lumbar spinal stenosis. 5. Hypertension. 6. Endometriosis. 7. Anxiety/depression. Problems Addressed with this Encounter and Plan: 1. Patient with IgG lambda myeloma presenting with plasmacytoma involving the right parietal-occipital extra-axial space. She underwent resection/open biopsy of the extracranial portion of the mass on 07/20/2018. She then underwent radiation, completed on 09/02/2018 to a total dose of 5000 cGy. She had associated IgG lambda monoclonal protein in the serum and 2% monoclonal plasma cells in the bone marrow, consistent with underlying myeloma. Initially it appeared to otherwise not be symptomatic, and she was followed expectantly following completion of the radiation. By January 2019 she had developed increasing pain in the left hip/buttock area. Her repeat protein electrophoresis studies showed only a slight increase in her M protein, but her repeat PET/CT on 02/03/2019 showed significant progression of lytic bone involvement in the left ilium. There was also possible involvement in the distal right femur. The area of lytic involvement in the calvarium was not metabolically active. Her subsequent myeloma therapies included: 1. Velcade/Revlimid/dexamethasone beginning 02/23/2019. She had multiple toxicities, requiring dose reductions and treatment delays. As of July 2019 she was transitioned to maintenance Revlimid at 5 mg daily. 2. Second line treatment with daratumumab/dexamethasone began 03/21/2020. As of 06/27/2020 pomalidomide was added at a reduced dosage. She tolerated the pomalidomide very poorly due to [employer] side effects. Treatment was then stopped due to evidence of disease progression by PET/CT on 07/12/2020. 3. She began salvage therapy with belantamab mafodotin 08/29/2020. That treatment was interrupted when she was confirmed to have COVID-19 virus infection following the 2nd cycle. It was restarted in December 2020. It was stopped after the 5th cycle, administered on 02/11/2021, due to visual changes. She appeared to have significant response by follow-up PET/CT on 03/15/2021. However, with her persistent visual symptoms, she opted to remain off treatment. During subsequent follow-up she had reported increasing pain in the right shoulder. 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 She was given palliative radiation to the right shoulder, completed on 07/08/2021 to a total dose of 3000 cGy, ministered in 10 fractions. She had some improvement in the pain with the radiation. On 07/25/2021 she began further treatment with carfilzomib/dexamethasone with the carfilzomib administered daily for 2 days on a 3-week out of 4 schedule. She completed the first week of treatment without acute toxicity. She presents today with multiple new complaints, no significant of which are increased shortness of breath and episodes of inner quivering. Due to her known risk of thromboembolism, I am going to repeat a CT pulmonary angiogram before attempting any further treatment. 2. 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 3. She has had thromboembolism including pulmonary emboli in August 2018 and left upper extremity deep vein thrombosis while on anticoagulation. She continues her anticoagulation with apixaban 5 mg twice daily. Signed By: Ruiz Rodriguez M.D. <<Signature on File>>
== END 2021-07-31 06:02 | disposition home or self-care (01) ==
LOC: ONCMED 06:02
PROVIDERS: PCP Electrodiagnostic Medicine; Visit Provider Internal Medicine Medical Oncology
DX: C90.30 Solitary plasmacytoma not having achieved remission (principal); M19.90 Unspecified osteoarthritis, unspecified site; I10 Essential (primary) hypertension; F41.8 Other specified anxiety disorders; N80.9 Endometriosis, unspecified; M48.02 Spinal stenosis, cervical region; M48.061 Spinal stenosis, lumbar region without neurogenic claudication; Z86.711 Personal history of pulmonary embolism; Z79.899 Other long term (current) drug therapy; Z79.82 Long term (current) use of aspirin; Z79.01 Long term (current) use of anticoagulants; C90.00 Multiple myeloma not having achieved remission; R06.02 Shortness of breath; R07.9 Chest pain, unspecified; Z90.49 Acquired absence of other specified parts of digestive tract
CPT/HCPCS: 36591; 71275; 80053; 82607; 85025; 99214; Q9967

== ENCOUNTER 2021-07-31 13:17 | Outpatient (CLI) | payer MEDICARE, SELFPAY ==
--- NOTE | 2021-07-31 13:23 | CT_ITS ---
WS: [id number] CTA OF THE CHEST WITH PULMONARY EMBOLISM PROTOCOL TECHNIQUE: High-resolution contrast enhanced CTA of the chest with coronal and sagittal reformatted i mignons with pulmonary embolism protocol. MIP images are also reviewed. CLINICAL INFORMATION: MYELOMA AND SHORTNESS OF BREATH, CHEST PAINS COMPARISON: CTA November 16, 2020 DLP: 710.[address] scans at [facility] use at least one of these dose optimization techniques: automated e xposure control; mA and/or kV adjustment per patient size (includes targeted exams where dose is matc hed to clinical indication); or iterative reconstruction. FINDINGS: Proximal main pulmonary arteries are normal. Normal segmental and subsegmental pulmonary arteries. No evidence of pulmonary embolus. Normal caliber thoracic aorta. No mediastinal or hilar lymphadenopath y. No axillary lymphadenopathy.Mild chronic emphysematous changes. No acute pulmonary infiltrates. No focal pneumonia or pleural fluid. Adrenal glands are normal. Prior cholecystectomy. Postoperative changes in the upper abdomen and GE j unction. Hypertrophic changes thoracic spine with disc osteophyte complexes. Partially evaluated epigastric/upper abdominal hernia with a few loops of herniated bowel. This can b e further evaluated with CT abdomen pelvis. This appears unchanged from CTA chest November 16, 2020 CT/CT angio chest PE protcl [id number] IMPRESSION: 1. No evidence of pulmonary embolus. 2. Both lungs are well aerated. No acute pulmonary infiltrates. 3. Prior cholecystectomy. Postoperative changes in the upper abdomen and GE ju nction. 4. Small partially evaluated epigastric/upper abdominal hernia with small magy iated bowel loops. This can be further evaluated with CT abdomen pelvis.This ap pears unchanged from CTA chest November 16, 2020
[2021-07-31] MEDS: iohexol 350 mg/mL 100 mL Btl IV (14:31)
== END 2021-07-31 13:18 | disposition home or self-care (01) ==
PROVIDERS: PCP Electrodiagnostic Medicine; Visit Provider Internal Medicine Medical Oncology
DX: C90.00 Multiple myeloma not having achieved remission (principal); R06.02 Shortness of breath; R07.9 Chest pain, unspecified; Z90.49 Acquired absence of other specified parts of digestive tract
CPT/HCPCS: 71275; Q9967

== ENCOUNTER 2021-08-01 06:05 | Outpatient (CLI) | payer MEDICARE, SELFPAY ==
[2021-08-01] MEDS: acetaminophen 325 mg Tablet 650 MG PO (12:18)
[2021-08-01] MEDS: famotidine 20 mg/2 mL INJ IVP (12:18)
[2021-08-01] MEDS: sodium chloride 0.9% 500 ML 999 ML IV (12:18)
[2021-08-01] MEDS: dexamethasone 4 mg Tablet 20 MG PO (12:18)
[2021-08-01] MEDS: ondansetron 2 mg/ML SDV 2 mL 8 MG IV (12:20)
[2021-08-01] MEDS: diphenhydrAMINE 50 mg/mL SDV 1mL 25 MG IV (12:24)
[2021-08-01] MEDS: dextrose 5% 250 ML 75 ML IV (12:44)
== END 2021-08-01 06:06 | disposition home or self-care (01) ==
LOC: ONCMED 06:06
PROVIDERS: PCP Electrodiagnostic Medicine; Visit Provider Internal Medicine Medical Oncology
DX: Z51.11 Encounter for antineoplastic chemotherapy (principal); C90.00 Multiple myeloma not having achieved remission; Z79.899 Other long term (current) drug therapy
CPT/HCPCS: 11042; 96375; 96413; J1200; J2405; J3490; J7040; J8540; J9047

== ENCOUNTER 2021-08-01 10:21 | Outpatient (CLI) | payer MEDICARE, SELFPAY | END 2021-08-01 10:22 | disposition home or self-care (01) | LOC: WOUND 10:23 | PROVIDERS: PCP Electrodiagnostic Medicine; Visit Provider Emergency Medicine | DX: L59.8 Other specified disorders of the skin and subcutaneous tissue related to radiation (principal); Y84.2 Radiological procedure and radiotherapy as the cause of abnormal reaction of the patient, or of later complication, without mention of misadventure at the time of the procedure; Y78.1 Therapeutic (nonsurgical) and rehabilitative radiological devices associated with adverse incidents | CPT/HCPCS: 11042 ==

== ENCOUNTER 2021-08-02 05:46 | Outpatient (CLI) | payer MEDICARE, SELFPAY ==
[2021-08-02] MEDS: acetaminophen 325 mg Tablet 650 MG PO (09:30)
[2021-08-02] MEDS: dextrose 5% 250 ML 75 ML IV (09:30)
[2021-08-02] MEDS: dexamethasone 4 mg Tablet 20 MG PO (09:30)
[2021-08-02] MEDS: ondansetron 2 mg/ML SDV 2 mL 8 MG IV (09:37)
[2021-08-02] MEDS: diphenhydrAMINE 50 mg/mL SDV 1mL 25 MG IV (09:37)
[2021-08-02] MEDS: famotidine 20 mg/2 mL INJ IVP (09:38)
[2021-08-02] MEDS: sodium chloride 0.9% 500 ML 999 ML IV (10:20)
== END 2021-08-02 05:47 | disposition home or self-care (01) ==
LOC: ONCMED 05:47
PROVIDERS: PCP Electrodiagnostic Medicine; Visit Provider Internal Medicine Medical Oncology
DX: Z51.11 Encounter for antineoplastic chemotherapy (principal); C90.00 Multiple myeloma not having achieved remission; Z79.899 Other long term (current) drug therapy
CPT/HCPCS: 96375; 96413; J1200; J2405; J3490; J7040; J8540; J9047

== ENCOUNTER 2021-08-07 06:28 | Outpatient (CLI) | payer MEDICARE, SELFPAY ==
[2021-08-07 09:51] LABS: Basophils % 0.5 %; Eosinophils # 0.2 10^3/uL (0.0-0.8); Eosinophils % 2.8 %; Hematocrit 34.8 % (37.0-47.0); Hemoglobin 11.2 g/dL (11.5-15.3); Lymphocytes # 1.9 10^3/uL (0.8-4.8); Lymphocytes % 22.5 %; Mean Corpuscular HGB Conc 32.2 g/dL (30.0-36.0); Mean Corpuscular Hemoglobin 28.5 pg (28.0-34.0); Mean Corpuscular Volume 88.5 fl (81-99); Mean Platelet Volume 12.5 fL (7.4-10.4); Monocytes # 1.1 10^3/uL (0.2-0.9); Monocytes % 13.2 %; Neutrophils # 4.99 10^3/uL (1.8-7.7); Neutrophils % 60.4 %; Nucleated Red Blood Cells % 0 %; Platelet Count 156 10^3/cmm (130-400); Red Blood Count 3.93 10^6/uL (4.1-5.3); Red Cell Distribution Width 16.1 % (12.1-15.1); White Blood Count 8.3 10^3/uL (4.0-10.0)
[2021-08-07 10:34] LABS: Alanine Aminotransferase 17 U/L (0-33); Albumin Level 3.4 g/dL (3.5-5.2); Alkaline Phosphatase 101 IU/L (35-105); Anion Gap 12.4 (5-19); Aspartate Amino Transferase 18 U/L (0-32); Blood Urea Nitrogen 18 mg/dL (8-23); Calcium 9.1 mg/dL (8.5-10.5); Carbon Dioxide 23 mmol/L (22-29); Chloride 109 mmol/L (98-107); Globulin 1.8 g/dL (1.3-4.6); Glomerular Filtration Rate 82.7 mL/min (90-130); Glucose 87 mg/dL (65-115); Osmolality Calculated 293 mOsm/kg (285-295); Potassium 3.4 mmol/L (3.5-5.1); Sodium 141 mmol/L (136-145); Total Bilirubin 0.3 mg/dL (0.15-1.2); Total Protein 5.2 g/dL (6.6-8.7)
[2021-08-07] MEDS: sodium chloride 0.9% 500 ML 999 ML IV (11:37)
[2021-08-07] MEDS: dextrose 5% 250 ML 75 ML IV (11:37)
[2021-08-07] MEDS: ondansetron 2 mg/ML SDV 2 mL 8 MG IV (11:53)
[2021-08-07] MEDS: dexamethasone 4 mg Tablet 20 MG PO (11:53)
[2021-08-07] MEDS: famotidine 20 mg/2 mL INJ IVP (11:54)
[2021-08-07] MEDS: diphenhydrAMINE 50 mg/mL SDV 1mL 25 MG IV (11:55)
[2021-08-07] MEDS: acetaminophen 325 mg Tablet 650 MG PO (12:18)
--- NOTE | 2021-08-08 07:31 | ONC FU_ITS ---
Dr. Rodriguez Patient Follow-Up Note Patient: Valentin Clark Unit #: [id number]: 1950 Dicatated By: Ruiz Rodriguez M.D.Date of Visit:Aug 07, 2021 Onc Med Follow-up/Prog Note Chief Complaint: Mulitple myeloma. 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 In March 2018 she had bumped her head at work and in the process of that she became aware of a small lump, though it was actually in a slightly different area. She then noticed that the lump was getting larger. Evaluation with head MRI on 06/07/2018 showed evidence of a right parietal occipital extra-axial neoplasm, felt to be most likely meningeal in origin. It was noted to exert mass effect on the right parietal and occipital lobes, but without associated midline shift or white matter parenchymal edema. The lesion was noted to invade through the calvarium and into the subcutaneous parietal occipital scalp soft tissues. The mass measured 5.7 x 3.5 x 6 cm. 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 The area of occlusion was noted to extend over approximately 4.3 cm. She was seen by Dr. Landry and subsequently referred for neurosurgery evaluation at [facility]. Initially they had considered possible surgical resection. Her further evaluation there apparently included laboratory findings which were suspicious for myeloma, and it was recommended that she have treatment with radiation. She was seen here for further management on 07/14/2018. She then returned to Dr. Landry, and on 07/20/2018 she underwent open biopsy/resection of the extracranial extent of the mass. 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 Her further evaluation included protein electrophoresis which showed an IgG lambda monoclonal protein in the serum quantitating at 0.48 g/dL. The serum free light chain assay showed elevated lambda light chain at 374.65 mg/L with decreased kappa/lambda ratio at 0.06. The 24-hour urine protein electrophoresis showed no monoclonal protein. There were no other areas of lytic bone involvement noted on her skeletal survey. Bone marrow aspiration/biopsy on 07/30/2018 showed a monotypic plasma cell population, but it comprised only 2% of the total cellularity. A FISH panel for myeloma was unrevealing, and the standard chromosome analysis was normal. She was referred to Dr. Kaur, and she began radiation to the lesion on 07/30/2018. She completed treatment on 09/02/2018 to a total dose of 5,000 cGy. She had evaluation with CT pulmonary angiogram on 09/14/2018. It showed moderate bilateral pulmonary embolic burden. She began on anticoagulation with apixaban. During her subsequent follow-up she continued to have an open wound at the site of the plasmacytoma in the parietal-occipital scalp region. As of her follow-up visit on 10/19/2018 her M protein was stable 0.37 g/dL. In the absence of any evidence of symptomatic myeloma, she had otherwise just continued on observation/expectant management. However, due to her persistent scalp wound she had a repeat brain MRI on 01/11/2019. It showed evidence of residual neoplastic process at the resection site. There was associated dural involvement but with improved signal characteristics and decreased enhancement compared to the study from September 2018. She had further evaluation with PET/CT on 02/03/2019. It showed increase in size and expansile hypermetabolic lesion within the left ilium with extension of hypermetabolic tumor into the adjacent left iliac muscle. There was a new hypermetabolic lytic process within the right S1/S2 region. A large lytic mass within the posterior calvarium did not appear to have active hypermetabolism. Also noted, though, was a hypermetabolic lesion within the medullary canal of the distal left femoral diametaphysis and an additional hypermetabolic focus in the anterior cortex of the distal right femur concerning for additional areas of myeloma. In the setting of obvious progression of her myeloma, she began treatment with VRd on 02/23/2019. At that time she also received an infusion of IV Zometa for the lytic bone involvement. She experienced multiple toxicities with the VRd regimen, requiring dose reductions and treatment delays. Beginning with cycle 4, and June 2019 the Velcade was dropped from the regimen, and the following month her treatment was put on hold due to multiple toxicities, mainly severe fatigue and excessive somnolence. She was found to have a low B12 level, for which she began on B12 replacement therapy. At her follow-up visit on 11/28/2019 she was still mildly anemic, and transferrin saturation was still low at 17% despite being on oral iron replacement. As such, she was then given parenteral iron replacement with infusions of Injectafer on 11/28/2019 and on 12/05/2019. With the 11/28 visit she also was given denosumab 120 mg by subcutaneous injection for the lytic bone involvement. On 12/06/2019 she was admitted to the hospital with symptomatic hypocalcemia, serum calcium 5.9 mg/dL with albumin 2.9 g/dL. Renal function was stable with creatinine 1.0 mg/dL, but her potassium also was low at 3.2 mmol/L. She was given IV calcium and potassium replacement. She then continued further IV replacement as an outpatient. Despite that she was readmitted to the hospital with hypocalcemia on 12/15/2019. She was discharged home on 12/23/2019. Her evaluation included CT pulmonary angiogram which showed no evidence of pulmonary embolism. There was evidence of cardiomegaly, a small pericardial effusion, and small bilateral pleural effusions. Echocardiogram showed small, hemodynamically insignificant pericardial effusion and normal left ventricular function. She then returned here on 12/27/2019 and she has since then continued IV fluid and electrolyte replacement, daily for the first week and then on Mondays, Wednesdays, and Fridays. Despite that, she continued to feel weak and shaky, and she had ongoing complaints of nausea and anorexia. She continued to require IV fluid and electrolyte replacement but she did show gradual recovery. Her further treatment remained on hold. Repeat protein electrophoresis on 01/16/2020 showed stable M protein at 0.4 g/dL. The serum free light chain assay showed elevated free lambda light chain at 254 mg/L with decreased kappa/lambda ratio at 0.16. There was no monoclonal protein identified in the 24-hour urine protein electrophoresis. Restaging PET/CT on 02/24/2020 showed findings concerning for disease progression with new areas of marrow hypermetabolism within the right proximal humerus and within the bilateral distal femoral diametaphysis. The existing areas of involvement within the left ilium and sacrum showed further decrease in FDG uptake. With those findings, I had recommended that she proceed to second line treatment with daratumumab/dexamethasone. She eventually was able to begin her initial infusion of daratumumab on 03/21/2020. Her repeat free light chain assay prior to that showed further increase in the lambda light chain to 537 mg/L with kappa/lambda ratio 0.06. She tolerated the daratumumab with no adverse effects, and she then continued treatment weekly. On 05/03/2020 she underwent EGD and colonoscopy by Dr. Jimenes. The EGD showed no significant abnormal findings, and the colonoscopy showed just 2 small polyps in the rectum. 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 As of 05/09/2020 she had completed her 8th infusion on the weekly schedule, and as of 05/16/2020 she received her 1st of 8 planned infusions at the 2-week interval. Her M protein at that point was stable at 0.4 g/dL. The free light chain assay showed a decrease in the free lambda light chain from 537.42 205.2 mg/L. However, her repeat head MRI on 06/05/2020 showed significant progression of the myelomatous lesions within the skull compared to the study from January 2020. Numerous calvarial lesions were now present, the largest in the right parietal bone measuring 2.2 cm. The postoperative resection site in the posterior right parietal lobe showed significantly more enhancement with slightly more dural enhancement, also suspicious for progression of neoplastic changes. With that finding, she had continued the daratumumab and dexamethasone, but beginning on 06/27/2020 she added pomalidomide at a reduced dosage of 2 mg daily on a 21/28-day schedule. Her repeat PET/CT on 07/12/2020 showed a large lytic lesion within the posterior right calvarium, but without associated hypermetabolism. There were no new lesions identified within the calvarium. There was persistent hypermetabolism noted within the proximal right humerus, SUV 3.6, and there was new hypermetabolism within the marrow of the proximal left humerus, SUV 3.6. There was decrease in FDG uptake within the medial left ilium. There was persistent hypermetabolism noted in the right femoral diametaphysis and in the distal left femoral diametaphysis. There was new hypermetabolism noted in the proximal left tibia. Overall the findings were concerning for disease progression, and she was recommended to undergo a trial of salvage therapy with belantamab [id number]. Her other medical illnesses include hypertension and degenerative arthritis/degenerative disease of the spine. She has associated cervical and lumbar spinal stenosis. She has a history of endometriosis, and she has anxiety/depression. She is a nonsmoker. INTERIM HISTORY: On 08/29/2020 she began cycle 1 of belantamab [id number]. She tolerated the initial infusion without acute toxicity. She continued with cycle 2 on 09/19/2020. Her further management was then complicated by COVID-19 virus infection and by left upper extremity deep vein thrombosis for which she underwent revascularization of the left innominate vein and manual thrombectomy of the left subclavian vein. She was then able to continue the belantamab-mafodotin at 3-week intervals. As of 02/11/2021 she had completed her 5th cycle. Her further treatment was then put on hold due to visual symptoms, though her repeat eye exam in February had shown only grade 1 changes. Repeat head MRI on 02/26/2021 showed no evidence of recurrent or progressed disease. There is stable enhancement about the resection cavity in the right parieto-occipital area. Multiple enhancing myelomatous lesions involving the underlying calvarium appeared stable. The largest was in the right parietal calvarium measuring 1.8 cm. 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 There was associated encephalomalacia and gliosis. Restaging PET/CT on 03/15/2021 showed a small focus of increased tracer accumulation in the soft tissues/bone marrow of the right posterior skull with maximum SUV 4.70. That area had not been included on the previous study, so it could not be compared. However, the appearance was consistent with residual myeloma. Also noted was stable mild increased metabolic activity in the left proximal humerus with maximum SUV 3.03. There was no focal increase in the right proximal humerus, noted to have resolved compared to the prior study. Also noted was resolution of previously described metabolic increased activity in the left proximal fibula and in both distal femoral metadiaphyses. Overall the study was noted to be significantly improved. As of her follow-up visit on 05/07/2021 she was showing some decline in performance status. She reported having new pain in her back and she reported increased pain in her right shoulder. MRI of the right shoulder on 05/27/2021 showed an enhancing intramedullary lesion centered in the right humeral head measuring 3.5 x 1.9 cm. A smaller adjacent satellite lesion was noted to extend towards the greater tuberosity. The findings were most consistent with metastatic sites from the myeloma. She was seen by Dr. Bah for palliative radiation. She had had further evaluation with MRI of the left shoulder which showed an intramedullary T2 hyperintense enhancing lesion in the left humeral head measuring 2.6 x 2.1 x 4.1 cm. With those findings, she underwent palliative radiation to the right shoulder. Treatment was completed on 07/08/2021 to a total dose of 3000 cGy administered in 10 fractions. Repeat head MRI on 07/24/2021 showed stable postoperative findings associated with the previous right parietal occipital craniectomy. Enhancing myelomatous calvarial lesions, the largest in the right parietal calvarium measuring 1.8 cm, also appeared stable. There was no evidence for recurrent or progressed parenchymal disease. There was evidence for chronic infarcts in the left cerebellum with associated encephalomalacia and gliosis. With evidence of disease progression she then began further treatment with carfilzomib/dexamethasone with the carfilzomib administered in a standard day 1/2, day 8/9, and day 15/16 schedule to minimize the risk of toxicity. Her baseline echocardiogram showed adequate LV function with estimated ejection fraction at 60%. She received her day 1/day 2 treatment last week, and she was able to tolerate it without acute toxicity. At day 8 she reported increased shortness of breath. A CT pulmonary angiogram showed no evidence of pulmonary emboli or other acute pathology. She was able to continue with her day 8 and day 9 carfilzomib. She is seen for a follow-up visit. She continues to have fatigue, but she is able to do light work, and lately she actually has been significantly more active. Her ECOG score is 1. She does not have appetite, but she does eat. She has not had fever. She had have some sweating 1 night. At that time she was also having chest pressure and heart racing, and it was hard to breathe. She has not had sore mouth or throat. She continues to have shortness of breath with activity. She also has some cough. Yesterday she had some pain in the right side of her chest. She has mild nausea off and on. She has had some diarrhea the last 2 days. She has urinary frequency and dysuria. She has been having pain in her right shoulder and some pain in her right leg. She has had headaches and she complains that she is off balance. She has no numbness/paresthesia or other focal neurologic symptoms. Medications: Albuterol Sulfate HFA Aerosol, solution Inhalation PRN, Arthritis Pain Reliever 2 Gm/60mL (of 1 %) Gel (jelly) Topical PRN, Aspirin 1 Tablet (of 81 mg) Tablet, chewable Oral daily, B-12 Dots 1 Tablet (of 500 mcg) Tablet Dispersable Oral daily, Claritin 1 Capsule (of 10 mg) Oral daily PRN, Eliquis 1 Tablet (of 5 mg) Oral b.i.d., FLUoxetine HCl 1 Tablet (of 10 mg) Oral daily, FLUoxetine HCl 1 Capsule (of 20 mg) Oral daily, HYDROcodone-Acetaminophen 1 - 2 Tablet (of 5-325 mg) Oral q 4 to 6 hours PRN, Lasix 1 - 2 Tablet (of 40 mg) Oral PRN, LORazepam 1 Tablet (of 0.5 mg) Oral b.i.d. PRN, Probiotic Capsule Oral PRN, RA Senna 1 Capsule (of 8.6 mg) Oral daily PRN, Vitamin D3 Super Strength 1 Capsule (of 50 mcg ) Oral b.i.d. Allergies: BusPIRone HCl, Codeine and Related, Levaquin, and Morphine Derivatives. Vital Signs: Performed on Aug 07, 2021 10:46 Height - 63.50 in Weight - 215.6 lbs (HIGH) BSA - 2.01 sq.m BMI - 37.59 (HIGH) Temperature - 97.8 F (LOW) Pulse - 82 /min Respiration - 18 /min BP - 190/83 mm(hg) (HIGH) O2 Sat - 98 % Pain - 5 Fatigue - 10 Physical Examination: Constitutional - She appears somewhat weak generally, Eyes - Sclerae nonicteric. Conjunctivae clear, ENMT - No lesions noted in the oral cavity, Hematologic/Lymphatic - No cervical, clavicular, or axillary adenopathy, Respiratory - Lungs sound clear, Cardiovascular - Heart rhythm is regular. There is a II/ systolic murmur. There is no gallop or rub noted, Abdomen - Mildly distended but soft. Liver and spleen are not enlarged. There is no abdominal mass or ascites noted and there is no inguinal adenopathy, Extremities - There is mild swelling in both legs, Neurologic - No focal neurologic deficits noted. Lab/Imaging: Test performed on Aug 07, 2021 09:00 Sodium 141 mmol/L Potassium 3.4 mmol/L Chloride 109 mmol/L CO2 23 mmol/L Anion Gap 12.4 BUN 18 mg/dL Creatinine 0.7 mg/dL Cr Clearance (Est) 108.6000 mL/min eGFR 82.7 mL/min Glucose 87 mg/dL Osmolality - Calculated 293 mOsm/kg Calcium 9.1 mg/dL Protein, Total 5.2 g/dL Albumin 3.4 g/dL Globulin 1.8 g/dL Bilirubin, Total 0.3 mg/dL ALT (SGPT) 17 U/L AST (SGOT) 18 U/L Alkaline Phosphatase 101 IU/L WBC 8.3 10 3/uL RBC 3.93 10 6/uL HGB 11.2 g/dL HCT 34.8 % MCV 88.5 fl MCH 28.5 pg MCHC 32.2 g/dL RDW 16.1 % Platelet Count 156 10 3/cmm MPV 12.5 fL Neutrophils 4.99 10 3/uL Lymphocytes 1.9 10 3/uL Monocytes 1.1 10 3/uL Eosinophils 0.2 10 3/uL Basophils 0.0 10 3/uL Neutrophil % 60.4 % Lymphocyte % 22.5 % Monocyte % 13.2 % Eosinophil % 2.8 % Basophils % 0.5 % NRBC % 0 % Problem List: 1. IgG lambda myeloma presenting with plasmacytoma involving the right parietal-occipital extra-axial space. She underwent resection/open biopsy of the extracranial portion of the mass on 07/20/2018. 2. She has persistent open wound at the biopsy site. 3. She has had thromboembolism with pulmonary emboli documented by CT pulmonary angiogram on 09/14/2018. She developed left upper extremity deep vein thrombosis in October 2020 in association with COVID-19 virus infection. She required hospitalization in November 2020 for revascularization of the left innominate vein and manual thrombectomy of the left subclavian vein. 4. Degenerative arthritis and degenerative disease of the spine with associated cervical and lumbar spinal stenosis. 5. Hypertension. 6. Endometriosis. 7. Anxiety/depression. Problems Addressed with this Encounter and Plan: 1. Patient with IgG lambda myeloma presenting with plasmacytoma involving the right parietal-occipital extra-axial space. She underwent resection/open biopsy of the extracranial portion of the mass on 07/20/2018. She then underwent radiation, completed on 09/02/2018 to a total dose of 5000 cGy. She had associated IgG lambda monoclonal protein in the serum and 2% monoclonal plasma cells in the bone marrow, consistent with underlying myeloma. Initially it appeared to otherwise not be symptomatic, and she was followed expectantly following completion of the radiation. By January 2019 she had developed increasing pain in the left hip/buttock area. Her repeat protein electrophoresis studies showed only a slight increase in her M protein, but her repeat PET/CT on 02/03/2019 showed significant progression of lytic bone involvement in the left ilium. There was also possible involvement in the distal right femur. The area of lytic involvement in the calvarium was not metabolically active. Her subsequent myeloma therapies included: 1. Velcade/Revlimid/dexamethasone beginning 02/23/2019. She had multiple toxicities, requiring dose reductions and treatment delays. As of July 2019 she was transitioned to maintenance Revlimid at 5 mg daily. 2. Second line treatment with daratumumab/dexamethasone began 03/21/2020. As of 06/27/2020 pomalidomide was added at a reduced dosage. She tolerated the pomalidomide very poorly due to [employer] side effects. Treatment was then stopped due to evidence of disease progression by PET/CT on 07/12/2020. 3. She began salvage therapy with belantamab mafodotin 08/29/2020. That treatment was interrupted when she was confirmed to have COVID-19 virus infection following the 2nd cycle. It was restarted in December 2020. It was stopped after the 5th cycle, administered on 02/11/2021, due to visual changes. She appeared to have significant response by follow-up PET/CT on 03/15/2021. However, with her persistent visual symptoms, she opted to remain off treatment. During subsequent follow-up she had reported increasing pain in the right shoulder. 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 She was given palliative radiation to the right shoulder, completed on 07/08/2021 to a total dose of 3000 cGy, ministered in 10 fractions. She had some improvement in the pain with the radiation. On 07/25/2021 she began further treatment with carfilzomib/dexamethasone with the carfilzomib administered daily for 2 days on a 3-week out of 4 schedule. She completed the first week of treatment without acute toxicity. At 8 she had increased shortness of breath, but her CT pulmonary angiogram showed no evidence of pulmonary emboli or other acute pathology. She was able to complete her day 8/day 9 carfilzomib. At this point she continues to have multiple complaints including fatigue and shortness of breath. She appears to be tolerating her treatment with acceptable toxicity. She will proceed with day 15/day 16 carfilzomib. The dosage remains the same. She returns in 2 weeks. 2. 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 3. She has had thromboembolism including pulmonary emboli in August 2018 and left upper extremity deep vein thrombosis while on anticoagulation. She continues her anticoagulation with apixaban 5 mg twice daily. Signed By: Ruiz Rodriguez M.D. <<Signature on File>>
== END 2021-08-07 06:29 | disposition home or self-care (01) ==
LOC: ONCMED 06:28
PROVIDERS: PCP Electrodiagnostic Medicine; Visit Provider Internal Medicine Medical Oncology
DX: Z51.11 Encounter for antineoplastic chemotherapy (principal); C90.00 Multiple myeloma not having achieved remission; I27.82 Chronic pulmonary embolism; M50.30 Other cervical disc degeneration, unspecified cervical region; M48.02 Spinal stenosis, cervical region; M51.36 Other intervertebral disc degeneration, lumbar region; M48.061 Spinal stenosis, lumbar region without neurogenic claudication; I10 Essential (primary) hypertension; N80.9 Endometriosis, unspecified; F41.8 Other specified anxiety disorders; Z79.899 Other long term (current) drug therapy
CPT/HCPCS: 80053; 85025; 96375; 96413; 99215; J1200; J2405; J3490; J7040; J8540; J9047

== ENCOUNTER 2021-08-08 06:50 | Outpatient (CLI) | payer MEDICARE, SELFPAY ==
[2021-08-08] MEDS: sodium chloride 0.9% 500 ML 999 ML IV (11:10)
[2021-08-08] MEDS: acetaminophen 325 mg Tablet 650 MG PO (11:10)
[2021-08-08] MEDS: dexamethasone 4 mg Tablet 20 MG PO (11:10)
[2021-08-08] MEDS: dextrose 5% 250 ML 75 ML IV (11:10)
[2021-08-08] MEDS: diphenhydrAMINE 50 mg/mL SDV 1mL 25 MG IV (11:41)
[2021-08-08] MEDS: ondansetron 2 mg/ML SDV 2 mL 8 MG IV (11:42)
[2021-08-08] MEDS: famotidine 20 mg/2 mL INJ IVP (11:43)
== END 2021-08-08 06:51 | disposition home or self-care (01) ==
PROVIDERS: PCP Electrodiagnostic Medicine; Visit Provider Internal Medicine Medical Oncology
DX: Z51.11 Encounter for antineoplastic chemotherapy (principal); C90.00 Multiple myeloma not having achieved remission; Z79.899 Other long term (current) drug therapy
CPT/HCPCS: 96375; 96413; J1200; J2405; J3490; J7040; J8540; J9047

== ENCOUNTER 2021-08-12 14:39 | Outpatient (CLI) | payer MEDICARE, SELFPAY ==
--- NOTE | 2021-08-12 14:53 | XR_ITS ---
WS: [id number] Exam: XR chest 2V* [id number] Date/Time of Exam: 08/12/2021 2:55 PM Reason For Exam: SHORTNESS OF BREATH Comparison to chest CT scan performed 07/31/2021. The lungs are fully expanded. No acute infiltrates are seen. Slight blunting of the left costophrenic angle may represent pleural thickening or trace pleural effusion. Heart size is top limits normal. A left subclavian port extends into a brachiocephalic vein stent and is unchanged in position since pr evious studies. The superior mediastinum is not widened. Numerous surgical clips in the upper abdomen . XR/XR chest 2V* [id number] IMPRESSION: 1. No acute cardiopulmonary finding. 2. Slightly blunted left costophrenic angle that may represent trace pleural ef fusion or pleural thickening. 3. Indwelling left subclavian port in place ending within a pre-existing brachi ocephalic vein stent.
== END 2021-08-12 14:40 | disposition home or self-care (01) ==
LOC: RAD 14:45 → ONCMED 15:22
PROVIDERS: PCP Electrodiagnostic Medicine; Visit Provider Internal Medicine Medical Oncology
DX: C79.51 Secondary malignant neoplasm of bone (principal); R06.02 Shortness of breath; C90.00 Multiple myeloma not having achieved remission; Z95.828 Presence of other vascular implants and grafts
CPT/HCPCS: 71046

== ENCOUNTER 2021-08-21 06:42 | Outpatient (CLI) | payer MEDICARE, SELFPAY ==
--- NOTE | 2021-08-21 07:40 | USCV_ITS ---
Valentin Clark Age: 71 Gender: F : 1950 Exam Date: 08/21/2021 08:06 Ordering Phys: Luis Manuel Jimenes DO Technologist: Cabrera Huff Exam Location: [facility] [place] Indication: HIGH RISK MEDS BP: 140 / 80 HR: 67 Rhythm: Sinus Technical Quality: Adequate MEASUREMENTS (Male / Female) Normal Values 2D ECHO LV Diastolic Diameter PLAX 3.7 cm 4.2 - 5.9 / 3.9 - 5.3 cm LV Systolic Diameter PLAX 2.9 cm IVS Diastolic Thickness 0.8 cm 0.6 - 1.0 / 0.6 - 0.9 cm IVS Systolic Thickness 1.6 cm LVPW Diastolic Thickness 1.0 cm 0.6 - 1.0 / 0.6 - 0.9 cm LVPW Systolic Thickness 1.4 cm LVOT Diameter 2.0 cm LV Ejection Fraction 2D Teich 36.7 % LA Diameter 4.5 cm LA Width 4.8 cm LA Height 5.7 cm RA Width 3.8 cm RA Height 4.5 cm Aorta at Sinotubular Diameter 2.9 cm FINDINGS Left Ventricle Normal left ventricular cavity size. Normal left ventricular systolic function. Left ventricular ejection fraction is estimated at 60 %. No diagnostic regional wall motion abnormality based on the study. Right Ventricle Normal right ventricular size and systolic function. Right Atrium Right atrium not well visualized. Left Atrium Mildly increased left atrial size. Mitral Valve Mildly thickened mitral valve. Aortic Valve Mildly thickened trileaflet aortic valve. Tricuspid Valve Tricuspid valve not well visualized. Pulmonic Valve Pulmonic valve not well visualized. Pericardium No pericardial effusion. Aorta Normal size aortic root and proximal ascending aorta. CONCLUSIONS 1. This is a limited 2 D study. 2. Normal left ventricular cavity size and systolic function. Left ventricular ejection fraction is estimated at 60 %. No diagnostic regional wall motion abnormality based on the study. 3. Normal right ventricular size and systolic function. 4. No significant change when compared to study dated 07/18/2021. Kelsi Mccurdy MD (Electronically Signed) Final Date: 21 August 2021 16:30 S
[2021-08-21 09:45] LABS: Basophils # 0.1 10^3/uL (0.0-0.1); Basophils % 1.8 %; Eosinophils # 0.1 10^3/uL (0.0-0.8); Eosinophils % 1.6 %; Hematocrit 42.9 % (37.0-47.0); Hemoglobin 13.3 g/dL (11.5-15.3); Lymphocytes # 0.6 10^3/uL (0.8-4.8); Lymphocytes % 10.6 %; Mean Corpuscular Hemoglobin 28.4 pg (28.0-34.0); Mean Corpuscular Volume 91.7 fl (81-99); Mean Platelet Volume 11.5 fL (7.4-10.4); Monocytes # 0.7 10^3/uL (0.2-0.9); Monocytes % 12.7 %; Neutrophils # 4.13 10^3/uL (1.8-7.7); Neutrophils % 72.9 %; Nucleated Red Blood Cells % 0 %; Platelet Count 305 10^3/cmm (130-400); Red Blood Count 4.68 10^6/uL (4.1-5.3); Red Cell Distribution Width 16.4 % (12.1-15.1); White Blood Count 5.7 10^3/uL (4.0-10.0)
[2021-08-21 10:14] LABS: Alanine Aminotransferase 14 U/L (0-33); Albumin Level 3.5 g/dL (3.5-5.2); Alkaline Phosphatase 102 IU/L (35-105); Anion Gap 11.7 (5-19); Aspartate Amino Transferase 17 U/L (0-32); Blood Urea Nitrogen 16 mg/dL (8-23); Calcium 8.9 mg/dL (8.5-10.5); Carbon Dioxide 33 mmol/L (22-29); Chloride 97 mmol/L (98-107); Globulin 2.5 g/dL (1.3-4.6); Glomerular Filtration Rate 70.9 mL/min (90-130); Glucose 155 mg/dL (65-115); Osmolality Calculated 290 mOsm/kg (285-295); Potassium 3.7 mmol/L (3.5-5.1); Sodium 138 mmol/L (136-145); Total Bilirubin 0.4 mg/dL (0.15-1.2)
[2021-08-21] MEDS: sodium chloride 0.9% 500 ML IV (11:00)
[2021-08-21] MEDS: dexamethasone 4 mg Tablet 20 MG PO (11:00)
[2021-08-21] MEDS: acetaminophen 325 mg Tablet 650 MG PO (11:00)
[2021-08-21] MEDS: famotidine 20 mg/2 mL INJ IVP (11:30)
[2021-08-21] MEDS: ondansetron 2 mg/ML SDV 2 mL 8 MG IV (11:33)
[2021-08-21] MEDS: diphenhydrAMINE 50 mg/mL SDV 1mL 25 MG IV (11:35)
[2021-08-22 07:28] LABS: PROTEIN, TOTAL 5.5 g/dL (6.1-8.1)
[2021-08-22 13:07] LABS: KAPPA LIGHT CHAIN, FREE, SERUM 11.3 mg/L (3.3-19.4); KAPPA/LAMBDA LIGHT CHAINS FREE 0.37 (0.26-1.65); LAMBDA LIGHT CHAIN, FREE, SERU 30.3 mg/L (5.7-26.3)
[2021-08-23 07:28] LABS: ABNORMAL PROTEIN BAND 1 0.2 g/dL (NONE DETECTED); ALBUMIN 3.3 g/dL (3.8-4.8); ALPHA 1 GLOBULIN 0.3 g/dL (0.2-0.3); ALPHA 2 GLOBULIN 0.9 g/dL (0.5-0.9); BETA 1 GLOBULIN 0.5 g/dL (0.4-0.6); BETA 2 GLOBULIN 0.2 g/dL (0.2-0.5); GAMMA GLOBULIN 0.4 g/dL (0.8-1.7)
== END 2021-08-21 06:43 | disposition home or self-care (01) ==
PROVIDERS: PCP Electrodiagnostic Medicine; Visit Provider Internal Medicine Medical Oncology
DX: Z51.11 Encounter for antineoplastic chemotherapy (principal); C90.00 Multiple myeloma not having achieved remission; Z86.711 Personal history of pulmonary embolism; M47.812 Spondylosis without myelopathy or radiculopathy, cervical region; M48.02 Spinal stenosis, cervical region; M48.061 Spinal stenosis, lumbar region without neurogenic claudication; I10 Essential (primary) hypertension; N80.9 Endometriosis, unspecified; F41.9 Anxiety disorder, unspecified; F32.A Depression, unspecified; Z92.23 Personal history of estrogen therapy; Z79.01 Long term (current) use of anticoagulants
CPT/HCPCS: 36415; 80053; 83883; 84155; 84165; 85025; 93308; 96361; 96375; 96413; J1200; J2405; J3490; J7040; J8540; J9047

== ENCOUNTER 2021-08-22 06:41 | Outpatient (CLI) | payer MEDICARE, SELFPAY ==
[2021-08-22] MEDS: dexamethasone 4 mg Tablet 20 MG PO (09:02)
[2021-08-22] MEDS: sodium chloride 0.9% 500 ML 999 ML IV (09:05)
[2021-08-22] MEDS: acetaminophen 325 mg Tablet 650 MG PO (09:05)
[2021-08-22] MEDS: ondansetron 2 mg/ML SDV 2 mL 8 MG IVP (09:35)
[2021-08-22] MEDS: famotidine 20 mg/2 mL INJ IVP (09:40)
[2021-08-22] MEDS: diphenhydrAMINE 50 mg/mL SDV 1mL 25 MG IVP (09:40)
== END 2021-08-22 06:42 | disposition home or self-care (01) ==
LOC: ONCMED 06:42
PROVIDERS: PCP Electrodiagnostic Medicine; Visit Provider Internal Medicine Medical Oncology
DX: Z51.11 Encounter for antineoplastic chemotherapy (principal); C90.30 Solitary plasmacytoma not having achieved remission; I10 Essential (primary) hypertension; F41.9 Anxiety disorder, unspecified; F32.A Depression, unspecified; Z79.01 Long term (current) use of anticoagulants; Z79.899 Other long term (current) drug therapy; Z86.711 Personal history of pulmonary embolism; Z86.718 Personal history of other venous thrombosis and embolism
CPT/HCPCS: 96361; 96375; 96413; J1200; J2405; J3490; J7040; J8540; J9047

== ENCOUNTER 2021-08-28 06:40 | Outpatient (CLI) | payer MEDICARE, SELFPAY ==
[2021-08-28 10:43] LABS: Basophils % 0.6 %; Eosinophils # 0.1 10^3/uL (0.0-0.8); Eosinophils % 1.4 %; Hematocrit 38.3 % (37.0-47.0); Lymphocytes # 1.7 10^3/uL (0.8-4.8); Lymphocytes % 25.4 %; Mean Corpuscular HGB Conc 31.3 g/dL (30.0-36.0); Mean Corpuscular Hemoglobin 28.1 pg (28.0-34.0); Mean Corpuscular Volume 89.7 fl (81-99); Mean Platelet Volume 12.4 fL (7.4-10.4); Monocytes # 0.8 10^3/uL (0.2-0.9); Monocytes % 11.9 %; Neutrophils % 60.1 %; Nucleated Red Blood Cells % 0 %; Platelet Count 167 10^3/cmm (130-400); Red Blood Count 4.27 10^6/uL (4.1-5.3); Red Cell Distribution Width 16.2 % (12.1-15.1); White Blood Count 6.5 10^3/uL (4.0-10.0)
[2021-08-28 11:13] LABS: Alanine Aminotransferase 22 U/L (0-33); Albumin Level 3.3 g/dL (3.5-5.2); Alkaline Phosphatase 99 IU/L (35-105); Anion Gap 10.2 (5-19); Aspartate Amino Transferase 20 U/L (0-32); Blood Urea Nitrogen 12 mg/dL (8-23); Calcium 8.9 mg/dL (8.5-10.5); Carbon Dioxide 26 mmol/L (22-29); Chloride 107 mmol/L (98-107); Globulin 2.1 g/dL (1.3-4.6); Glomerular Filtration Rate 82.7 mL/min (90-130); Glucose 90 mg/dL (65-115); Osmolality Calculated 287 mOsm/kg (285-295); Potassium 4.2 mmol/L (3.5-5.1); Sodium 139 mmol/L (136-145); Total Bilirubin 0.5 mg/dL (0.15-1.2); Total Protein 5.4 g/dL (6.6-8.7)
[2021-08-28] MEDS: dextrose 5% 250 ML 75 ML IV (14:00)
[2021-08-28] MEDS: sodium chloride 0.9% 500 ML 999 ML IV (14:00)
[2021-08-28] MEDS: acetaminophen 325 mg Tablet 650 MG PO (14:00)
[2021-08-28] MEDS: famotidine 20 mg/2 mL INJ IVP (14:29)
[2021-08-28] MEDS: ondansetron 2 mg/ML SDV 2 mL 8 MG IVP (14:30)
[2021-08-28] MEDS: diphenhydrAMINE 50 mg/mL SDV 1mL 25 MG IVP (14:33)
--- NOTE | 2021-09-08 17:02 | ONC FU_ITS ---
[facility] Patient Note Patient: Valentin Clark Unit #: [id number]: 1950 Dictated By: Sue PatelDate of Visit: Aug 28, 2021 Onc MED Follow-Up/Prog Note Chief Complaint: Multiple myeloma. 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 In March 2018 she had bumped her head at work and in the process of that she became aware of a small lump, though it was actually in a slightly different area. She then noticed that the lump was getting larger. Evaluation with head MRI on 06/07/2018 showed evidence of a right parietal occipital extra-axial neoplasm, felt to be most likely meningeal in origin. It was noted to exert mass effect on the right parietal and occipital lobes, but without associated midline shift or white matter parenchymal edema. The lesion was noted to invade through the calvarium and into the subcutaneous parietal occipital scalp soft tissues. The mass measured 5.7 x 3.5 x 6 cm. 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 The area of occlusion was noted to extend over approximately 4.3 cm. She was seen by Dr. Landry and subsequently referred for neurosurgery evaluation at [facility]. Initially they had considered possible surgical resection. Her further evaluation there apparently included laboratory findings which were suspicious for myeloma, and it was recommended that she have treatment with radiation. She was seen here for further management on 07/14/2018. She then returned to Dr. Landry, and on 07/20/2018 she underwent open biopsy/resection of the extracranial extent of the mass. 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 Her further evaluation included protein electrophoresis which showed an IgG lambda monoclonal protein in the serum quantitating at 0.48 g/dL. The serum free light chain assay showed elevated lambda light chain at 374.65 mg/L with decreased kappa/lambda ratio at 0.06. The 24-hour urine protein electrophoresis showed no monoclonal protein. There were no other areas of lytic bone involvement noted on her skeletal survey. Bone marrow aspiration/biopsy on 07/30/2018 showed a monotypic plasma cell population, but it comprised only 2% of the total cellularity. A FISH panel for myeloma was unrevealing, and the standard chromosome analysis was normal. She was referred to Dr. Kaur, and she began radiation to the lesion on 07/30/2018. She completed treatment on 09/02/2018 to a total dose of 5,000 cGy. She had evaluation with CT pulmonary angiogram on 09/14/2018. It showed moderate bilateral pulmonary embolic burden. She began on anticoagulation with apixaban. During her subsequent follow-up she continued to have an open wound at the site of the plasmacytoma in the parietal-occipital scalp region. As of her follow-up visit on 10/19/2018 her M protein was stable 0.37 g/dL. In the absence of any evidence of symptomatic myeloma, she had otherwise just continued on observation/expectant management. However, due to her persistent scalp wound she had a repeat brain MRI on 01/11/2019. It showed evidence of residual neoplastic process at the resection site. There was associated dural involvement but with improved signal characteristics and decreased enhancement compared to the study from September 2018. She had further evaluation with PET/CT on 02/03/2019. It showed increase in size and expansile hypermetabolic lesion within the left ilium with extension of hypermetabolic tumor into the adjacent left iliac muscle. There was a new hypermetabolic lytic process within the right S1/S2 region. A large lytic mass within the posterior calvarium did not appear to have active hypermetabolism. Also noted, though, was a hypermetabolic lesion within the medullary canal of the distal left femoral diametaphysis and an additional hypermetabolic focus in the anterior cortex of the distal right femur concerning for additional areas of myeloma. In the setting of obvious progression of her myeloma, she began treatment with VRd on 02/23/2019. At that time she also received an infusion of IV Zometa for the lytic bone involvement. She experienced multiple toxicities with the VRd regimen, requiring dose reductions and treatment delays. Beginning with cycle 4, and June 2019 the Velcade was dropped from the regimen, and the following month her treatment was put on hold due to multiple toxicities, mainly severe fatigue and excessive somnolence. She was found to have a low B12 level, for which she began on B12 replacement therapy. At her follow-up visit on 11/28/2019 she was still mildly anemic, and transferrin saturation was still low at 17% despite being on oral iron replacement. As such, she was then given parenteral iron replacement with infusions of Injectafer on 11/28/2019 and on 12/05/2019. With the 11/28 visit she also was given denosumab 120 mg by subcutaneous injection for the lytic bone involvement. On 12/06/2019 she was admitted to the hospital with symptomatic hypocalcemia, serum calcium 5.9 mg/dL with albumin 2.9 g/dL. Renal function was stable with creatinine 1.0 mg/dL, but her potassium also was low at 3.2 mmol/L. She was given IV calcium and potassium replacement. She then continued further IV replacement as an outpatient. Despite that she was readmitted to the hospital with hypocalcemia on 12/15/2019. She was discharged home on 12/23/2019. Her evaluation included CT pulmonary angiogram which showed no evidence of pulmonary embolism. There was evidence of cardiomegaly, a small pericardial effusion, and small bilateral pleural effusions. Echocardiogram showed small, hemodynamically insignificant pericardial effusion and normal left ventricular function. She then returned here on 12/27/2019 and she has since then continued IV fluid and electrolyte replacement, daily for the first week and then on Mondays, Wednesdays, and Fridays. Despite that, she continued to feel weak and shaky, and she had ongoing complaints of nausea and anorexia. She continued to require IV fluid and electrolyte replacement but she did show gradual recovery. Her further treatment remained on hold. Repeat protein electrophoresis on 01/16/2020 showed stable M protein at 0.4 g/dL. The serum free light chain assay showed elevated free lambda light chain at 254 mg/L with decreased kappa/lambda ratio at 0.16. There was no monoclonal protein identified in the 24-hour urine protein electrophoresis. Restaging PET/CT on 02/24/2020 showed findings concerning for disease progression with new areas of marrow hypermetabolism within the right proximal humerus and within the bilateral distal femoral diametaphysis. The existing areas of involvement within the left ilium and sacrum showed further decrease in FDG uptake. With those findings, I had recommended that she proceed to second line treatment with daratumumab/dexamethasone. She eventually was able to begin her initial infusion of daratumumab on 03/21/2020. Her repeat free light chain assay prior to that showed further increase in the lambda light chain to 537 mg/L with kappa/lambda ratio 0.06. She tolerated the daratumumab with no adverse effects, and she then continued treatment weekly. On 05/03/2020 she underwent EGD and colonoscopy by Dr. Jimenes. The EGD showed no significant abnormal findings, and the colonoscopy showed just 2 small polyps in the rectum. 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 As of 05/09/2020 she had completed her 8th infusion on the weekly schedule, and as of 05/16/2020 she received her 1st of 8 planned infusions at the 2-week interval. Her M protein at that point was stable at 0.4 g/dL. The free light chain assay showed a decrease in the free lambda light chain from 537.42 205.2 mg/L. However, her repeat head MRI on 06/05/2020 showed significant progression of the myelomatous lesions within the skull compared to the study from January 2020. Numerous calvarial lesions were now present, the largest in the right parietal bone measuring 2.2 cm. The postoperative resection site in the posterior right parietal lobe showed significantly more enhancement with slightly more dural enhancement, also suspicious for progression of neoplastic changes. With that finding, she had continued the daratumumab and dexamethasone, but beginning on 06/27/2020 she added pomalidomide at a reduced dosage of 2 mg daily on a 21/28-day schedule. Her repeat PET/CT on 07/12/2020 showed a large lytic lesion within the posterior right calvarium, but without associated hypermetabolism. There were no new lesions identified within the calvarium. There was persistent hypermetabolism noted within the proximal right humerus, SUV 3.6, and there was new hypermetabolism within the marrow of the proximal left humerus, SUV 3.6. There was decrease in FDG uptake within the medial left ilium. There was persistent hypermetabolism noted in the right femoral diametaphysis and in the distal left femoral diametaphysis. There was new hypermetabolism noted in the proximal left tibia. Overall the findings were concerning for disease progression, and she was recommended to undergo a trial of salvage therapy with belantamab [id number]. Her other medical illnesses include hypertension and degenerative arthritis/degenerative disease of the spine. She has associated cervical and lumbar spinal stenosis. She has a history of endometriosis, and she has anxiety/depression. She is a nonsmoker. INTERIM HISTORY: On 08/29/2020 she began cycle 1 of belantamab [id number]. She tolerated the initial infusion without acute toxicity. She continued with cycle 2 on 09/19/2020. Her further management was then complicated by COVID-19 virus infection and by left upper extremity deep vein thrombosis for which she underwent revascularization of the left innominate vein and manual thrombectomy of the left subclavian vein. She was then able to continue the belantamab-mafodotin at 3-week intervals. As of 02/11/2021 she had completed her 5th cycle. Her further treatment was then put on hold due to visual symptoms, though her repeat eye exam in February had shown only grade 1 changes. Repeat head MRI on 02/26/2021 showed no evidence of recurrent or progressed disease. There is stable enhancement about the resection cavity in the right parieto-occipital area. Multiple enhancing myelomatous lesions involving the underlying calvarium appeared stable. The largest was in the right parietal calvarium measuring 1.8 cm. 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 There was associated encephalomalacia and gliosis. Restaging PET/CT on 03/15/2021 showed a small focus of increased tracer accumulation in the soft tissues/bone marrow of the right posterior skull with maximum SUV 4.70. That area had not been included on the previous study, so it could not be compared. However, the appearance was consistent with residual myeloma. Also noted was stable mild increased metabolic activity in the left proximal humerus with maximum SUV 3.03. There was no focal increase in the right proximal humerus, noted to have resolved compared to the prior study. Also noted was resolution of previously described metabolic increased activity in the left proximal fibula and in both distal femoral metadiaphyses. Overall the study was noted to be significantly improved. As of her follow-up visit on 05/07/2021 she was showing some decline in performance status. She reported having new pain in her back and she reported increased pain in her right shoulder. MRI of the right shoulder on 05/27/2021 showed an enhancing intramedullary lesion centered in the right humeral head measuring 3.5 x 1.9 cm. A smaller adjacent satellite lesion was noted to extend towards the greater tuberosity. The findings were most consistent with metastatic sites from the myeloma. She was seen by Dr. Bah for palliative radiation. She had had further evaluation with MRI of the left shoulder which showed an intramedullary T2 hyperintense enhancing lesion in the left humeral head measuring 2.6 x 2.1 x 4.1 cm. With those findings, she underwent palliative radiation to the right shoulder. Treatment was completed on 07/08/2021 to a total dose of 3000 cGy administered in 10 fractions. Repeat head MRI on 07/24/2021 showed stable postoperative findings associated with the previous right parietal occipital craniectomy. Enhancing myelomatous calvarial lesions, the largest in the right parietal calvarium measuring 1.8 cm, also appeared stable. There was no evidence for recurrent or progressed parenchymal disease. There was evidence for chronic infarcts in the left cerebellum with associated encephalomalacia and gliosis. With evidence of disease progression she then began further treatment with carfilzomib/dexamethasone with the carfilzomib administered in a standard day 1/2, day 8/9, and day 15/16 schedule to minimize the risk of toxicity. Her baseline echocardiogram showed adequate LV function with estimated ejection fraction at 60%. She received her day 1/day 2 treatment last week, and she was able to tolerate it without acute toxicity. At day 8 she reported increased shortness of breath. A CT pulmonary angiogram showed no evidence of pulmonary emboli or other acute pathology. She was able to continue with her day 8 and day 9 carfilzomib. She states overall she feels about the same. She continues to have some fatigue but is able to do all her ADLs without assistance. She does get out and walk around some as well. She denies any fever or chills. She has occasional night sweats but nothing that is persistent. She has some anxiety at times but has not had any other episodes of chest pressure or palpitations. She denies any mouth sores, sore throat or difficulty swallowing. She continues to have short of notes of breath with activity but states is no worse than what has been. She denies any orthopnea. She has not had any cough or hemoptysis. She does have nausea occasionally and diarrhea occasionally but states both of these are controlled with medications when she takes them. She continues to have chronic pain in her right shoulder and right leg and occasional headaches. She denies any numbness or paresthesias. She has had no neurological symptoms since her last visit. She reports that she did get her flu vaccine on 08/19/2021. Her ECOG is 1. Past Medical History: Anxiety/depression Cervical stenosis Degenerative arthritis Degenerative disease of the spine Depression Endometriosis Hypertension Lumbar stenosis DVT LEFT INTERNAL JUGLAR, LEFT SUBCLAVIAN in 2019 COVID 19 + in 2019 Past Surgical History: Bilateral cataract excisions Cholecystectomy/gastric stapling Removal of ovarian cyst x 2 Tonsillectomy FLU vac in 2020 Covid vaccine #2 in 2020 COVID 19 1st in 2020 Angioplasty/stenting of the L innominate vein in 2020 Endovascular revascularization of left upper extremity veins and central veins-[facility] in 2020 Percutaneous mechanical thrombectomy of the L subclavian vein[facility] in 2020 Left subclavian venous access device[place] [place] 2018 Allergies: BusPIRone HCl, Codeine and Related, Levaquin, and Morphine Derivatives. Medications: Albuterol Sulfate HFA Aerosol, solution Inhalation PRN Arthritis Pain Reliever 2 Gm/60mL (of 1 %) Gel (jelly) Topical PRN Aspirin 1 Tablet (of 81 mg) Tablet, chewable Oral daily B-12 Dots 1 Tablet (of 500 mcg) Tablet Dispersable Oral daily Claritin 1 Capsule (of 10 mg) Oral daily PRN Eliquis 1 Tablet (of 5 mg) Oral b.i.d. FLUoxetine HCl 1 Tablet (of 10 mg) Oral daily FLUoxetine HCl 1 Capsule (of 20 mg) Oral daily HYDROcodone-Acetaminophen 1 - 2 Tablet (of 5-325 mg) Oral q 4 to 6 hours PRN Lasix 1 - 2 Tablet (of 40 mg) Oral PRN LORazepam 1 Tablet (of 0.5 mg) Oral b.i.d. PRN Probiotic Capsule Oral PRN RA Senna 1 Capsule (of 8.6 mg) Oral daily PRN Vitamin D3 Super Strength 1 Capsule (of 50 mcg ) Oral b.i.d. Family History: Ms. Clark's mother at age 84: emphysema, and congestive heart failure. Ms. Clark's father at age 53: heart disease, and myocardial infarction. Ms. Clark has 2 brothers: 1 alive, 1 . Ms. Clark's first brother's colon cancer, and type ii diabetes. Another brother's colon cancer. She has 2 sisters: 2 alive. Ms. Clark's first sister's herat disease, and type ii diabetes. Father of heart attack age 51. Mother with emphysema at age 78. She also had heart disease and diabetes. A sister has diabetes and heart disease. A brother has diabetes and he has been treated for colon cancer. A maternal uncle also had colon cancer, and a maternal aunt had breast cancer. 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 Ms. Clark has never smoked. She drinks occasionally. She is a nonsmoker. She has had just rare alcohol use. Review Of Symptoms: <See Above> Vital Signs: Performed on Aug 28, 2021 12:28 Height - 63.50 in Weight - 206.4 lbs (LOW) BSA - 1.97 sq.m BMI - 35.99 (HIGH) Temperature - 97.1 F (LOW) Pulse - 57 /min (LOW) Respiration - 18 /min BP - 189/96 mm(hg) (HIGH) O2 Sat - 97 % Pain - 5 Fatigue - 9,1 - No physically strenuous activity, but ambulatory and able to carry out light or sedentary work (e.g. office work, light house work). (ECOG) Physical Examination: Constitutional Alert, oriented, no acute distress. Skin pink, warm and dry. Head Normocephalic; atraumatic. Posterior scalp wound is healing well without exudate or redness. It remains open-covered with dressing. Eyes Conjunctivae and sclerae are clear and without icterus. Pupils are reactive and equal. Neck Supple without masses or thyromegaly. No jugular venous distension. Hematologic/Lymphatic No petechiae or purpura. No tender or palpable lymph nodes in the cervical or supraclavicular areas. Respiratory Lungs are clear to auscultation without rhonchi or wheezing. Cardiovascular Regular rate and rhythm of heart without murmurs,clicks, gallops or rubs. Chest left sided port-unremarkable. Abdomen Non-tender, non-distended, no masses, ascites. .Good bowel sounds noted in all quads. No guarding or rebound tenderness. No pulsatile masses. Back/Spine Non-tender to palpation. Extremities No visible deformities, no cyanosis, clubbing or edema. Musculoskeletal No tenderness or swelling. Integumentary No rashes or lesions. Neurologic No sensory or motor deficits, normal cerebellar function, normal-slow gait. Psychiatric Alert and oriented times three. Coherent speech. Verbalizes understanding of our discussions today. Laboratory:Test performed on Aug 28, 2021 10:20 Sodium 139 mmol/L Potassium 4.2 mmol/L Chloride 107 mmol/L CO2 26 mmol/L Anion Gap 10.2 BUN 12 mg/dL Creatinine 0.7 mg/dL Cr Clearance (Est) 108.6000 mL/min eGFR 82.7 mL/min Glucose 90 mg/dL Osmolality - Calculated 287 mOsm/kg Calcium 8.9 mg/dL Protein, Total 5.4 g/dL Albumin 3.3 g/dL Globulin 2.1 g/dL Bilirubin, Total 0.5 mg/dL ALT (SGPT) 22 U/L AST (SGOT) 20 U/L Alkaline Phosphatase 99 IU/L WBC 6.5 10 3/uL RBC 4.27 10 6/uL HGB 12.0 g/dL HCT 38.3 % MCV 89.7 fl MCH 28.1 pg MCHC 31.3 g/dL RDW 16.2 % Platelet Count 167 10 3/cmm MPV 12.4 fL Neutrophils 3.90 10 3/uL Lymphocytes 1.7 10 3/uL Monocytes 0.8 10 3/uL Eosinophils 0.1 10 3/uL Basophils 0.0 10 3/uL Neutrophil % 60.1 % Lymphocyte % 25.4 % Monocyte % 11.9 % Eosinophil % 1.4 % Basophils % 0.6 % NRBC % 0 % Test performed on Aug 21, 2021 09:10 [place] Free Light Chains 11.3 mg/L Lambda Free Light Chains 30.3 mg/L [place]/Lambda Free Ratio 0.37 Test performed on Jul 31, 2021 10:35 Vitamin B12 463 pg/mL Test performed on Jul 25, 2021 12:10 LDH (Total) 104 U/L IgA 50 mg/dL Test performed on Jul 08, 2021 14:29 U Albumin % 0 % UPE Interpretation SEE NOTE Agarose electrophoresis of urine reveals that quantities of albumin and globulin fractions are below the level of detection by this method. No abnormal protein is observed. THIS TEST WAS PERFORMED AT: [facility] [id number] [place] [address] ISIDORO RHODES DO,MPH U Creatinine, 24 hr 1.20 g/24 h U [id number] 0 % U [id number] 0 % U Beta Globulin 0 % U Gamma Globulin 0 % Test performed on Jun 17, 2021 16:20 SARS CoV-2 Ag Negative The results are negative with the test specificity 100%, sensitivity 97%, and positive predictive value 100%. If the patient shows clinical signs and symptoms of SARS-CoV-2, kindly defer to a NAAT detection method. Test performed on May 07, 2021 14:15 IgG 390 mg/dL IgM 14 mg/dL Test performed on April 04, 2021 11:07 ESR (Sed Rate) 16 mm/hr Impression: 1. IgG lambda myeloma presenting with plasmacytoma involving the right parietal-occipital extra-axial space. She underwent resection/open biopsy of the extracranial portion of the mass on 07/20/2018. 2. She has persistent open wound at the biopsy site. 3. She has had thromboembolism with pulmonary emboli documented by CT pulmonary angiogram on 09/14/2018. She developed left upper extremity deep vein thrombosis in October 2020 in association with COVID-19 virus infection. She required hospitalization in November 2020 for revascularization of the left innominate vein and manual thrombectomy of the left subclavian vein. 4. Degenerative arthritis and degenerative disease of the spine with associated cervical and lumbar spinal stenosis. 5. Hypertension. 6. Endometriosis. 7. Anxiety/depression. Plan/Problems Addressed at this Visit: 1. IgG lambda myeloma presenting with plasmacytoma involving the right parietal-occipital extra-axial space. She underwent resection/open biopsy of the extracranial portion of the mass on 07/20/2018. She then underwent radiation, completed on 09/02/2018 to a total dose of 5000 cGy. She had associated IgG lambda monoclonal protein in the serum and 2% monoclonal plasma cells in the bone marrow, consistent with underlying myeloma. Initially it appeared to otherwise not be symptomatic, and she was followed expectantly following completion of the radiation. By January 2019 she had developed increasing pain in the left hip/buttock area. Her repeat protein electrophoresis studies showed only a slight increase in her M protein, but her repeat PET/CT on 02/03/2019 showed significant progression of lytic bone involvement in the left ilium. There was also possible involvement in the distal right femur. The area of lytic involvement in the calvarium was not metabolically active. Her subsequent myeloma therapies included: 1. Velcade/Revlimid/dexamethasone beginning 02/23/2019. She had multiple toxicities, requiring dose reductions and treatment delays. As of July 2019 she was transitioned to maintenance Revlimid at 5 mg daily. 2. Second line treatment with daratumumab/dexamethasone began 03/21/2020. As of 06/27/2020 pomalidomide was added at a reduced dosage. She tolerated the pomalidomide very poorly due to [employer] side effects. Treatment was then stopped due to evidence of disease progression by PET/CT on 07/12/2020. 3. She began salvage therapy with belantamab mafodotin 08/29/2020. That treatment was interrupted when she was confirmed to have COVID-19 virus infection following the 2nd cycle. It was restarted in December 2020. It was stopped after the 5th cycle, administered on 02/11/2021, due to visual changes. She appeared to have significant response by follow-up PET/CT on 03/15/2021. However, with her persistent visual symptoms, she opted to remain off treatment. During subsequent follow-up she had reported increasing pain in the right shoulder. 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 She was given palliative radiation to the right shoulder, completed on 07/08/2021 to a total dose of 3000 cGy, ministered in 10 fractions. She had some improvement in the pain with the radiation. On 07/25/2021 she began further treatment with carfilzomib/dexamethasone with the carfilzomib administered daily for 2 days on a 3-week out of 4 schedule. She completed the first week of treatment without acute toxicity. At 8 she had increased shortness of breath, but her CT pulmonary angiogram showed no evidence of pulmonary emboli or other acute pathology. She was able to complete her day 8/day 9 carfilzomib. At this point she continues to have multiple complaints including fatigue and shortness of breath. She appears to be tolerating her treatment with acceptable toxicity. A. Proceed with cycle 2-day eight carfilzomib. Dexamethasone continues at 20 mg weekly. B. Today's labs were reviewed in detail and discussed with Ms. Clark and a copy was given to her. WBC 6.5, hemoglobin is 12, platelets one 67,000, ANC is 3900. Potassium 4.2 creatinine 0.7 LFTs are normal. C. PET CT from 08/16/2021 reports stable left proximal humerus. Improved left posterior cavitary lesion continues to demonstrate metabolic activity which may reflect post therapy inflammatory changes. There is no evidence of disease disease progression there is incidental findings of venous varicosities more prominent in the right lower extremity. D. Her urine protein electrophoresis from 07/08/2021 did not report any abnormal proteins. E. Ms. Clark was instructed to contact us in interim should questions or problems arise. 2. 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 3. She has had thromboembolism including pulmonary emboli in August 2018 and left upper extremity deep vein thrombosis while on anticoagulation. She continues her anticoagulation with apixaban 5 mg twice daily. 4. She is hypertensive with a blood pressure initially of 186/96 however with rest her repeat blood pressure was 160/88. She states she is taking Toprol 50 mg daily. She does follow-up with her primary care and will discuss blood pressures with him later this week. I have encouraged her to take her blood pressure once or twice a day to monitor it closely and to give information for her primary care to make decisions regarding blood pressure adjustments. Her heart rate today was 57. Signed By: Sue Patel-, [facility] Ru[facility] Rodriguez MD <<Signature on File>>
== END 2021-08-28 06:41 | disposition home or self-care (01) ==
LOC: ONCMED 06:41
PROVIDERS: PCP Electrodiagnostic Medicine; Visit Provider Nurse Practitioner
DX: Z51.11 Encounter for antineoplastic chemotherapy (principal); C90.00 Multiple myeloma not having achieved remission; Z79.899 Other long term (current) drug therapy
CPT/HCPCS: 80053; 85025; 96361; 96375; 96413; 99215; J1200; J2405; J3490; J7040; J9047

== ENCOUNTER 2021-08-29 08:06 | Outpatient (CLI) | payer MEDICARE, SELFPAY ==
[2021-08-29] MEDS: dextrose 5% 250 ML 75 ML IV (09:35)
[2021-08-29] MEDS: sodium chloride 0.9% 500 ML 999 ML IV (09:35)
[2021-08-29] MEDS: acetaminophen 325 mg Tablet 650 MG PO (09:50)
[2021-08-29] MEDS: famotidine 20 mg/2 mL INJ IVP (10:11)
[2021-08-29] MEDS: ondansetron 2 mg/ML SDV 2 mL 8 MG IV (10:13)
[2021-08-29] MEDS: diphenhydrAMINE 50 mg/mL SDV 1mL 25 MG IV (10:16)
== END 2021-08-29 08:07 | disposition home or self-care (01) ==
LOC: ONCMED 08:10
PROVIDERS: PCP Electrodiagnostic Medicine; Visit Provider Nurse Practitioner
DX: Z51.11 Encounter for antineoplastic chemotherapy (principal); C90.00 Multiple myeloma not having achieved remission; Z79.899 Other long term (current) drug therapy
CPT/HCPCS: 96360; 96375; 96413; J1200; J2405; J3490; J7040; J9047

== ENCOUNTER 2021-09-02 13:35 | Outpatient (CLI) | payer MEDICARE, SELFPAY | END 2021-09-02 13:36 | disposition home or self-care (01) | LOC: WOUND 13:37 | PROVIDERS: PCP Electrodiagnostic Medicine; Visit Provider Emergency Medicine | DX: L59.8 Other specified disorders of the skin and subcutaneous tissue related to radiation (principal); Y84.2 Radiological procedure and radiotherapy as the cause of abnormal reaction of the patient, or of later complication, without mention of misadventure at the time of the procedure; Y78.1 Therapeutic (nonsurgical) and rehabilitative radiological devices associated with adverse incidents | CPT/HCPCS: 97597 ==

== ENCOUNTER 2021-09-16 08:57 | Outpatient (CLI) | payer MEDICARE, SELFPAY ==
[2021-09-16 09:20] LABS: Basophils # 0.1 10^3/uL (0.0-0.1); Eosinophils # 0.1 10^3/uL (0.0-0.8); Eosinophils % 1.4 %; Hematocrit 41.3 % (37.0-47.0); Lymphocytes # 1.5 10^3/uL (0.8-4.8); Lymphocytes % 29.8 %; Mean Corpuscular HGB Conc 31.5 g/dL (30.0-36.0); Mean Corpuscular Hemoglobin 29.3 pg (28.0-34.0); Mean Platelet Volume 11.1 fL (7.4-10.4); Monocytes # 0.6 10^3/uL (0.2-0.9); Monocytes % 12.2 %; Neutrophils # 2.78 10^3/uL (1.8-7.7); Neutrophils % 54.4 %; Nucleated Red Blood Cells % 0 %; Platelet Count 292 10^3/cmm (130-400); Red Blood Count 4.44 10^6/uL (4.1-5.3); Red Cell Distribution Width 15.7 % (12.1-15.1); White Blood Count 5.1 10^3/uL (4.0-10.0)
[2021-09-16 09:48] LABS: Alanine Aminotransferase 15 U/L (0-33); Albumin Level 3.6 g/dL (3.5-5.2); Alkaline Phosphatase 89 IU/L (35-105); Aspartate Amino Transferase 21 U/L (0-32); Blood Urea Nitrogen 17 mg/dL (8-23); Carbon Dioxide 25 mmol/L (22-29); Chloride 102 mmol/L (98-107); Globulin 2.2 g/dL (1.3-4.6); Glomerular Filtration Rate 70.9 mL/min (90-130); Glucose 98 mg/dL (65-115); Osmolality Calculated 286 mOsm/kg (285-295); Sodium 137 mmol/L (136-145); Total Bilirubin 0.5 mg/dL (0.15-1.2); Total Protein 5.8 g/dL (6.6-8.7)
[2021-09-16 09:53] LABS: Anion Gap 14.1 (5-19); Potassium 4.1 mmol/L (3.5-5.1)
[2021-09-16] MEDS: sodium chloride 0.9% 500 ML 999 ML IV (11:53)
[2021-09-16] MEDS: acetaminophen 325 mg Tablet 650 MG PO (13:17)
[2021-09-16] MEDS: ondansetron 2 mg/ML SDV 2 mL 8 MG IV (13:18)
[2021-09-16] MEDS: sodium chloride 0.9% 250 ML 75 ML IV (14:01)
--- NOTE | 2021-09-16 17:09 | ONC FU_ITS ---
Dr. Rodriguez Patient Follow-Up Note Patient: Valentin Clark Unit #: [id number]: 1950 Dicatated By: Ruiz Rodriguez M.D.Date of Visit:Sep 16, 2021 Onc Med Follow-up/Prog Note Chief Complaint: Mulitple myeloma. 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 In March 2018 she had bumped her head at work and in the process of that she became aware of a small lump, though it was actually in a slightly different area. She then noticed that the lump was getting larger. Evaluation with head MRI on 06/07/2018 showed evidence of a right parietal occipital extra-axial neoplasm, felt to be most likely meningeal in origin. It was noted to exert mass effect on the right parietal and occipital lobes, but without associated midline shift or white matter parenchymal edema. The lesion was noted to invade through the calvarium and into the subcutaneous parietal occipital scalp soft tissues. The mass measured 5.7 x 3.5 x 6 cm. 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 The area of occlusion was noted to extend over approximately 4.3 cm. She was seen by Dr. Landry and subsequently referred for neurosurgery evaluation at [facility]. Initially they had considered possible surgical resection. Her further evaluation there apparently included laboratory findings which were suspicious for myeloma, and it was recommended that she have treatment with radiation. She was seen here for further management on 07/14/2018. She then returned to Dr. Landry, and on 07/20/2018 she underwent open biopsy/resection of the extracranial extent of the mass. 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 Her further evaluation included protein electrophoresis which showed an IgG lambda monoclonal protein in the serum quantitating at 0.48 g/dL. The serum free light chain assay showed elevated lambda light chain at 374.65 mg/L with decreased kappa/lambda ratio at 0.06. The 24-hour urine protein electrophoresis showed no monoclonal protein. There were no other areas of lytic bone involvement noted on her skeletal survey. Bone marrow aspiration/biopsy on 07/30/2018 showed a monotypic plasma cell population, but it comprised only 2% of the total cellularity. A FISH panel for myeloma was unrevealing, and the standard chromosome analysis was normal. She was referred to Dr. Kaur, and she began radiation to the lesion on 07/30/2018. She completed treatment on 09/02/2018 to a total dose of 5,000 cGy. She had evaluation with CT pulmonary angiogram on 09/14/2018. It showed moderate bilateral pulmonary embolic burden. She began on anticoagulation with apixaban. During her subsequent follow-up she continued to have an open wound at the site of the plasmacytoma in the parietal-occipital scalp region. As of her follow-up visit on 10/19/2018 her M protein was stable 0.37 g/dL. In the absence of any evidence of symptomatic myeloma, she had otherwise just continued on observation/expectant management. However, due to her persistent scalp wound she had a repeat brain MRI on 01/11/2019. It showed evidence of residual neoplastic process at the resection site. There was associated dural involvement but with improved signal characteristics and decreased enhancement compared to the study from September 2018. She had further evaluation with PET/CT on 02/03/2019. It showed increase in size and expansile hypermetabolic lesion within the left ilium with extension of hypermetabolic tumor into the adjacent left iliac muscle. There was a new hypermetabolic lytic process within the right S1/S2 region. A large lytic mass within the posterior calvarium did not appear to have active hypermetabolism. Also noted, though, was a hypermetabolic lesion within the medullary canal of the distal left femoral diametaphysis and an additional hypermetabolic focus in the anterior cortex of the distal right femur concerning for additional areas of myeloma. In the setting of obvious progression of her myeloma, she began treatment with VRd on 02/23/2019. At that time she also received an infusion of IV Zometa for the lytic bone involvement. She experienced multiple toxicities with the VRd regimen, requiring dose reductions and treatment delays. Beginning with cycle 4, and June 2019 the Velcade was dropped from the regimen, and the following month her treatment was put on hold due to multiple toxicities, mainly severe fatigue and excessive somnolence. She was found to have a low B12 level, for which she began on B12 replacement therapy. At her follow-up visit on 11/28/2019 she was still mildly anemic, and transferrin saturation was still low at 17% despite being on oral iron replacement. As such, she was then given parenteral iron replacement with infusions of Injectafer on 11/28/2019 and on 12/05/2019. With the 11/28 visit she also was given denosumab 120 mg by subcutaneous injection for the lytic bone involvement. On 12/06/2019 she was admitted to the hospital with symptomatic hypocalcemia, serum calcium 5.9 mg/dL with albumin 2.9 g/dL. Renal function was stable with creatinine 1.0 mg/dL, but her potassium also was low at 3.2 mmol/L. She was given IV calcium and potassium replacement. She then continued further IV replacement as an outpatient. Despite that she was readmitted to the hospital with hypocalcemia on 12/15/2019. She was discharged home on 12/23/2019. Her evaluation included CT pulmonary angiogram which showed no evidence of pulmonary embolism. There was evidence of cardiomegaly, a small pericardial effusion, and small bilateral pleural effusions. Echocardiogram showed small, hemodynamically insignificant pericardial effusion and normal left ventricular function. She then returned here on 12/27/2019 and she has since then continued IV fluid and electrolyte replacement, daily for the first week and then on Mondays, Wednesdays, and Fridays. Despite that, she continued to feel weak and shaky, and she had ongoing complaints of nausea and anorexia. She continued to require IV fluid and electrolyte replacement but she did show gradual recovery. Her further treatment remained on hold. Repeat protein electrophoresis on 01/16/2020 showed stable M protein at 0.4 g/dL. The serum free light chain assay showed elevated free lambda light chain at 254 mg/L with decreased kappa/lambda ratio at 0.16. There was no monoclonal protein identified in the 24-hour urine protein electrophoresis. Restaging PET/CT on 02/24/2020 showed findings concerning for disease progression with new areas of marrow hypermetabolism within the right proximal humerus and within the bilateral distal femoral diametaphysis. The existing areas of involvement within the left ilium and sacrum showed further decrease in FDG uptake. With those findings, I had recommended that she proceed to second line treatment with daratumumab/dexamethasone. She eventually was able to begin her initial infusion of daratumumab on 03/21/2020. Her repeat free light chain assay prior to that showed further increase in the lambda light chain to 537 mg/L with kappa/lambda ratio 0.06. She tolerated the daratumumab with no adverse effects, and she then continued treatment weekly. On 05/03/2020 she underwent EGD and colonoscopy by Dr. Jimenes. The EGD showed no significant abnormal findings, and the colonoscopy showed just 2 small polyps in the rectum. 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 As of 05/09/2020 she had completed her 8th infusion on the weekly schedule, and as of 05/16/2020 she received her 1st of 8 planned infusions at the 2-week interval. Her M protein at that point was stable at 0.4 g/dL. The free light chain assay showed a decrease in the free lambda light chain from 537.42 205.2 mg/L. However, her repeat head MRI on 06/05/2020 showed significant progression of the myelomatous lesions within the skull compared to the study from January 2020. Numerous calvarial lesions were now present, the largest in the right parietal bone measuring 2.2 cm. The postoperative resection site in the posterior right parietal lobe showed significantly more enhancement with slightly more dural enhancement, also suspicious for progression of neoplastic changes. With that finding, she had continued the daratumumab and dexamethasone, but beginning on 06/27/2020 she added pomalidomide at a reduced dosage of 2 mg daily on a 21/28-day schedule. Her repeat PET/CT on 07/12/2020 showed a large lytic lesion within the posterior right calvarium, but without associated hypermetabolism. There were no new lesions identified within the calvarium. There was persistent hypermetabolism noted within the proximal right humerus, SUV 3.6, and there was new hypermetabolism within the marrow of the proximal left humerus, SUV 3.6. There was decrease in FDG uptake within the medial left ilium. There was persistent hypermetabolism noted in the right femoral diametaphysis and in the distal left femoral diametaphysis. There was new hypermetabolism noted in the proximal left tibia. Overall the findings were concerning for disease progression, and she was recommended to undergo a trial of salvage therapy with belantamab [id number]. Her other medical illnesses include hypertension and degenerative arthritis/degenerative disease of the spine. She has associated cervical and lumbar spinal stenosis. She has a history of endometriosis, and she has anxiety/depression. She is a nonsmoker. INTERIM HISTORY: On 08/29/2020 she began cycle 1 of belantamab [id number]. She tolerated the initial infusion without acute toxicity. She continued with cycle 2 on 09/19/2020. Her further management was then complicated by COVID-19 virus infection and by left upper extremity deep vein thrombosis for which she underwent revascularization of the left innominate vein and manual thrombectomy of the left subclavian vein. She was then able to continue the belantamab-mafodotin at 3-week intervals. As of 02/11/2021 she had completed her 5th cycle. Her further treatment was then put on hold due to visual symptoms, though her repeat eye exam in February had shown only grade 1 changes. Repeat head MRI on 02/26/2021 showed no evidence of recurrent or progressed disease. There is stable enhancement about the resection cavity in the right parieto-occipital area. Multiple enhancing myelomatous lesions involving the underlying calvarium appeared stable. The largest was in the right parietal calvarium measuring 1.8 cm. 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 There was associated encephalomalacia and gliosis. Restaging PET/CT on 03/15/2021 showed a small focus of increased tracer accumulation in the soft tissues/bone marrow of the right posterior skull with maximum SUV 4.70. That area had not been included on the previous study, so it could not be compared. However, the appearance was consistent with residual myeloma. Also noted was stable mild increased metabolic activity in the left proximal humerus with maximum SUV 3.03. There was no focal increase in the right proximal humerus, noted to have resolved compared to the prior study. Also noted was resolution of previously described metabolic increased activity in the left proximal fibula and in both distal femoral metadiaphyses. Overall the study was noted to be significantly improved. As of her follow-up visit on 05/07/2021 she was showing some decline in performance status. She reported having new pain in her back and she reported increased pain in her right shoulder. MRI of the right shoulder on 05/27/2021 showed an enhancing intramedullary lesion centered in the right humeral head measuring 3.5 x 1.9 cm. A smaller adjacent satellite lesion was noted to extend towards the greater tuberosity. The findings were most consistent with metastatic sites from the myeloma. She was seen by Dr. Bah for palliative radiation. She had had further evaluation with MRI of the left shoulder which showed an intramedullary T2 hyperintense enhancing lesion in the left humeral head measuring 2.6 x 2.1 x 4.1 cm. With those findings, she underwent palliative radiation to the right shoulder. Treatment was completed on 07/08/2021 to a total dose of 3000 cGy administered in 10 fractions. Repeat head MRI on 07/24/2021 showed stable postoperative findings associated with the previous right parietal occipital craniectomy. Enhancing myelomatous calvarial lesions, the largest in the right parietal calvarium measuring 1.8 cm, also appeared stable. There was no evidence for recurrent or progressed parenchymal disease. There was evidence for chronic infarcts in the left cerebellum with associated encephalomalacia and gliosis. With evidence of disease progression she then began further treatment with carfilzomib/dexamethasone with the carfilzomib administered on a standard day 1/2, day 8/9, and day 15/16 schedule to minimize the risk of toxicity. Her baseline echocardiogram showed adequate LV function with estimated ejection fraction at 60%. At day 8 she reported increased shortness of breath. A CT pulmonary angiogram showed no evidence of pulmonary emboli or other acute pathology. She was able to complete that cycle of treatment. Restaging PET/CT on 08/16/2021 showed stable left proximal humerus bone mineral tumor involvement. There was improvement in the appearance of the right posterior calvarial lesion with SUV activity consistent with inflammatory changes. There was no evidence for disease progression. She then continued with cycle 2 on 08/21/2021. Her echocardiogram at that time showed normal left ventricular systolic function with ejection fraction estimated at 60%. At cycle 2-day 8 she was reporting fatigue and shortness of breath, but she was able to continue her treatment. Her further treatment was then put on hold, as her symptoms continued to worsen. She is seen for a follow-up visit. She has been feeling better generally. She says her energy is better now than it has been since the cancer was diagnosed. She is doing quite a bit of work at home. ECOG score is 1. Appetite is still not good. She does not have fever or night sweats. Her main complaint now is that she has a persistent pressure-like discomfort in the substernal/epigastric area. It has been unaffected by pantoprazole, she does not have other associated acid reflux symptoms. She has a runny nose, but no mouth sores. She had a cough, but that is better now. She is still sometimes short of breath. She still has an occasional wave of nausea. She says her bowels are loose, but not diarrhea. She says her bladder is very active, she does have urgency with urination. She has been having some pain in the area of her right shoulder blade and in her upper right arm, but she thinks that is activity related. She is not having headache now. She does not complain of dizziness, and she has no focal neurologic symptoms. Medications: Albuterol Sulfate HFA Aerosol, solution Inhalation PRN, Arthritis Pain Reliever 2 Gm/60mL (of 1 %) Gel (jelly) Topical PRN, Aspirin 1 Tablet (of 81 mg) Tablet, chewable Oral daily, B-12 Dots 1 Tablet (of 500 mcg) Tablet Dispersable Oral daily, Claritin 1 Capsule (of 10 mg) Oral daily PRN, Eliquis 1 Tablet (of 5 mg) Oral b.i.d., FLUoxetine HCl 1 Tablet (of 10 mg) Oral daily, FLUoxetine HCl 1 Capsule (of 20 mg) Oral daily, hydrALAZINE HCl 1 Tablet (of 25 mg) Oral b.i.d., HYDROcodone-Acetaminophen 1 - 2 Tablet (of 5-325 mg) Oral q 4 to 6 hours PRN, Lasix 1 - 2 Tablet (of 40 mg) Oral PRN, LORazepam 1 Tablet (of 0.5 mg) Oral b.i.d. PRN, Probiotic Capsule Oral PRN, RA Senna 1 Capsule (of 8.6 mg) Oral daily PRN, Vitamin D3 Super Strength 1 Capsule (of 50 mcg ) Oral b.i.d. Allergies: BusPIRone HCl, Codeine and Related, Levaquin, and Morphine Derivatives. Vital Signs: Performed on Sep 16, 2021 10:43 Height - 63.50 in Weight - 195.2 lbs (LOW) BSA - 1.92 sq.m BMI - 34.04 (HIGH) Temperature - 96.4 F (LOW) Pulse - 70 /min Respiration - 18 /min BP - 143/83 mm(hg) (HIGH) O2 Sat - 99 % Pain - 5 Fatigue - 7 Physical Examination: Constitutional - She looks pretty good generally, Eyes - Sclerae nonicteric. Conjunctivae clear, ENMT - No lesions noted in the oral cavity, Hematologic/Lymphatic - No cervical, clavicular, or axillary adenopathy, Respiratory - Lungs sound clear, Cardiovascular - Heart rhythm is regular. There is a II/ systolic murmur. There is no gallop or rub noted, Abdomen - Soft. Liver and spleen are not enlarged. There is no abdominal mass or ascites noted and there is no inguinal adenopathy, Extremities - No edema, Neurologic - No focal neurologic deficits noted. Lab/Imaging: Test performed on Sep 16, 2021 09:08 Sodium 137 mmol/L Potassium 4.1 mmol/L Chloride 102 mmol/L CO2 25 mmol/L Anion Gap 14.1 BUN 17 mg/dL Creatinine 0.8 mg/dL Cr Clearance (Est) 91.46 mL/min eGFR 70.9 mL/min Glucose 98 mg/dL Osmolality - Calculated 286 mOsm/kg Calcium 9.0 mg/dL Protein, Total 5.8 g/dL Albumin 3.6 g/dL Globulin 2.2 g/dL Bilirubin, Total 0.5 mg/dL ALT (SGPT) 15 U/L AST (SGOT) 21 U/L Alkaline Phosphatase 89 IU/L WBC 5.1 10 3/uL RBC 4.44 10 6/uL HGB 13.0 g/dL HCT 41.3 % MCV 93.0 fl MCH 29.3 pg MCHC 31.5 g/dL RDW 15.7 % Platelet Count 292 10 3/cmm MPV 11.1 fL Neutrophils 2.78 10 3/uL Lymphocytes 1.5 10 3/uL Monocytes 0.6 10 3/uL Eosinophils 0.1 10 3/uL Basophils 0.1 10 3/uL Neutrophil % 54.4 % Lymphocyte % 29.8 % Monocyte % 12.2 % Eosinophil % 1.4 % Basophils % 2.0 % NRBC % 0 % Problem List: 1. IgG lambda myeloma presenting with plasmacytoma involving the right parietal-occipital extra-axial space. She underwent resection/open biopsy of the extracranial portion of the mass on 07/20/2018. 2. She has persistent open wound at the biopsy site. 3. She has had thromboembolism with pulmonary emboli documented by CT pulmonary angiogram on 09/14/2018. She developed left upper extremity deep vein thrombosis in October 2020 in association with COVID-19 virus infection. She required hospitalization in November 2020 for revascularization of the left innominate vein and manual thrombectomy of the left subclavian vein. 4. Degenerative arthritis and degenerative disease of the spine with associated cervical and lumbar spinal stenosis. 5. Hypertension. 6. Endometriosis. 7. Anxiety/depression. Problems Addressed with this Encounter and Plan: 1. Patient with IgG lambda myeloma presenting with plasmacytoma involving the right parietal-occipital extra-axial space. She underwent resection/open biopsy of the extracranial portion of the mass on 07/20/2018. She then underwent radiation, completed on 09/02/2018 to a total dose of 5000 cGy. She had associated IgG lambda monoclonal protein in the serum and 2% monoclonal plasma cells in the bone marrow, consistent with underlying myeloma. Initially it appeared to otherwise not be symptomatic, and she was followed expectantly following completion of the radiation. By January 2019 she had developed increasing pain in the left hip/buttock area. Her repeat protein electrophoresis studies showed only a slight increase in her M protein, but her repeat PET/CT on 02/03/2019 showed significant progression of lytic bone involvement in the left ilium. There was also possible involvement in the distal right femur. The area of lytic involvement in the calvarium was not metabolically active. Her subsequent myeloma therapies included: 1. Velcade/Revlimid/dexamethasone beginning 02/23/2019. She had multiple toxicities, requiring dose reductions and treatment delays. As of July 2019 she was transitioned to maintenance Revlimid at 5 mg daily. 2. Second line treatment with daratumumab/dexamethasone began 03/21/2020. As of 06/27/2020 pomalidomide was added at a reduced dosage. She tolerated the pomalidomide very poorly due to TOW [employer]ATOR side effects. Treatment was then stopped due to evidence of disease progression by PET/CT on 07/12/2020. 3. She began salvage therapy with belantamab mafodotin 08/29/2020. That treatment was interrupted when she was confirmed to have COVID-19 virus infection following the 2nd cycle. It was restarted in December 2020. It was stopped after the 5th cycle, administered on 02/11/2021, due to visual changes. She appeared to have significant response by follow-up PET/CT on 03/15/2021. However, with her persistent visual symptoms, she opted to remain off treatment. During subsequent follow-up she had reported increasing pain in the right shoulder. 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 She was given palliative radiation to the right shoulder, completed on 07/08/2021 to a total dose of 3000 cGy, ministered in 10 fractions. She had some improvement in the pain with the radiation. On 07/25/2021 she began further treatment with carfilzomib/dexamethasone with the carfilzomib administered daily for 2 days on a 3-week out of 4 schedule. She was able to complete one full cycle of treatment, though during that time she complained of increasing fatigue and shortness of breath. She was evaluated with CT pulmonary angiogram, which showed no evidence of pulmonary emboli or other acute pathology. 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 There was no evidence of disease progression. She continued with cycle 2 on 08/21/2021. Echocardiogram at that point showed normal left ventricular function with estimated ejection fraction at 60%. Her treatment was put on hold following the day 8/day 9 carfilzomib infusions. She is now feeling better generally. She has been having some persistent discomfort in the substernal/epigastric area. The cause is uncertain, but at this point it appears unlikely to be of cardiac origin. In the absence of any evidence of disease progression or obvious treatment related toxicity, she will continue with cycle 3 of carfilzomib/dexamethasone. The carfilzomib will now be changed to a weekly dosing schedule at 70 mg/m??? by IV infusion. She will return for treatment in 1 week and for a follow-up visit in 2 weeks. 2. 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 3. She has had thromboembolism including pulmonary emboli in August 2018 and left upper extremity deep vein thrombosis while on anticoagulation. She continues her anticoagulation with apixaban 5 mg twice daily. Signed By: Ruiz Rodriguez M.D. <<Signature on File>>
== END 2021-09-16 08:58 | disposition home or self-care (01) ==
PROVIDERS: PCP Electrodiagnostic Medicine; Visit Provider Internal Medicine Medical Oncology
DX: Z51.11 Encounter for antineoplastic chemotherapy (principal); C90.30 Solitary plasmacytoma not having achieved remission; I10 Essential (primary) hypertension; N80.9 Endometriosis, unspecified; F41.9 Anxiety disorder, unspecified; F32.9 Major depressive disorder, single episode, unspecified; Z86.711 Personal history of pulmonary embolism; Z86.718 Personal history of other venous thrombosis and embolism; Z79.899 Other long term (current) drug therapy
CPT/HCPCS: 80053; 85025; 96361; 96375; 96413; 99215; J2405; J7040; J7050; J9047

== ENCOUNTER 2021-09-23 06:41 | Outpatient (CLI) | payer MEDICARE, SELFPAY ==
[2021-09-23] MEDS: alteplase 1 mg/mL SDV 2 mL 2 MG IV (09:45)
[2021-09-23 09:56] LABS: Basophils # 0.1 10^3/uL (0.0-0.1); Basophils % 0.8 %; Eosinophils # 0.1 10^3/uL (0.0-0.8); Eosinophils % 0.6 %; Hematocrit 38.5 % (37.0-47.0); Lymphocytes # 1.1 10^3/uL (0.8-4.8); Lymphocytes % 13.8 %; Mean Corpuscular HGB Conc 31.2 g/dL (30.0-36.0); Mean Corpuscular Hemoglobin 30.2 pg (28.0-34.0); Mean Corpuscular Volume 96.7 fl (81-99); Monocytes # 0.7 10^3/uL (0.2-0.9); Neutrophils # 6.23 10^3/uL (1.8-7.7); Neutrophils % 75.6 %; Nucleated Red Blood Cells % 0 %; Platelet Count 151 10^3/cmm (130-400); Red Blood Count 3.98 10^6/uL (4.1-5.3); Red Cell Distribution Width 15.5 % (12.1-15.1); White Blood Count 8.3 10^3/uL (4.0-10.0)
[2021-09-23] MEDS: sodium chloride 0.9% 500 ML IV (10:35)
[2021-09-23] MEDS: acetaminophen 325 mg Tablet 650 MG PO (10:50)
[2021-09-23] MEDS: diphenhydrAMINE 50 mg/mL SDV 1mL 25 MG IV (10:59)
[2021-09-23] MEDS: ondansetron 2 mg/ML SDV 2 mL 8 MG IV (11:50)
== END 2021-09-23 06:42 | disposition home or self-care (01) ==
LOC: ONCMED 06:41
PROVIDERS: PCP Electrodiagnostic Medicine; Visit Provider Internal Medicine Medical Oncology
DX: Z51.11 Encounter for antineoplastic chemotherapy (principal); C90.30 Solitary plasmacytoma not having achieved remission; C79.51 Secondary malignant neoplasm of bone; D47.2 Monoclonal gammopathy; E83.51 Hypocalcemia; D50.9 Iron deficiency anemia, unspecified
CPT/HCPCS: 85025; 96361; 96375; 96413; J1200; J2405; J2997; J7040; J9047

== ENCOUNTER 2021-09-26 13:37 | Outpatient (CLI) | payer MEDICARE, SELFPAY | END 2021-09-26 13:38 | disposition home or self-care (01) | LOC: WOUND 13:38 | PROVIDERS: PCP Electrodiagnostic Medicine; Visit Provider Emergency Medicine | DX: L59.8 Other specified disorders of the skin and subcutaneous tissue related to radiation (principal); Y84.2 Radiological procedure and radiotherapy as the cause of abnormal reaction of the patient, or of later complication, without mention of misadventure at the time of the procedure; Y78.1 Therapeutic (nonsurgical) and rehabilitative radiological devices associated with adverse incidents; I10 Essential (primary) hypertension | CPT/HCPCS: 11042; 87070; 87077; 87176; 87186; 87205; 99212 ==

== ENCOUNTER 2021-09-30 06:44 | Outpatient (CLI) | payer MEDICARE, SELFPAY ==
[2021-09-30 09:50] LABS: Basophils # 0.1 10^3/uL (0.0-0.1); Basophils % 1.1 %; Eosinophils # 0.1 10^3/uL (0.0-0.8); Eosinophils % 1.8 %; Hematocrit 35.4 % (37.0-47.0); Hemoglobin 11.3 g/dL (11.5-15.3); Lymphocytes # 1.4 10^3/uL (0.8-4.8); Lymphocytes % 18.8 %; Mean Corpuscular HGB Conc 31.9 g/dL (30.0-36.0); Mean Corpuscular Hemoglobin 30.2 pg (28.0-34.0); Mean Corpuscular Volume 94.7 fl (81-99); Mean Platelet Volume 11.2 fL (7.4-10.4); Monocytes # 0.9 10^3/uL (0.2-0.9); Monocytes % 11.9 %; Neutrophils # 4.85 10^3/uL (1.8-7.7); Neutrophils % 65.7 %; Nucleated Red Blood Cells % 0 %; Platelet Count 225 10^3/cmm (130-400); Red Blood Count 3.74 10^6/uL (4.1-5.3); Red Cell Distribution Width 15.8 % (12.1-15.1); White Blood Count 7.4 10^3/uL (4.0-10.0)
[2021-09-30 10:07] LABS: Alanine Aminotransferase 39 U/L (0-33); Albumin Level 3.2 g/dL (3.5-5.2); Alkaline Phosphatase 99 IU/L (35-105); Anion Gap 12.2 (5-19); Aspartate Amino Transferase 48 U/L (0-32); Blood Urea Nitrogen 12 mg/dL (8-23); Calcium 8.2 mg/dL (8.5-10.5); Carbon Dioxide 25 mmol/L (22-29); Chloride 107 mmol/L (98-107); Glomerular Filtration Rate 49.1 mL/min (90-130); Glucose 90 mg/dL (65-115); Osmolality Calculated 289 mOsm/kg (285-295); Potassium 4.2 mmol/L (3.5-5.1); Sodium 140 mmol/L (136-145); Total Bilirubin 0.5 mg/dL (0.15-1.2); Total Protein 5.2 g/dL (6.6-8.7)
[2021-09-30] MEDS: famotidine 20 mg/2 mL INJ IVP (13:00)
[2021-09-30] MEDS: dexamethasone 20 MG in sodium chloride 0.9% 50 ML 187 MG IV (13:10)
[2021-09-30] MEDS: sodium chloride 0.9% 250 ML 500 ML IV (13:25)
[2021-09-30] MEDS: ondansetron 2 mg/ML SDV 2 mL 8 MG IV (13:55)
[2021-09-30] MEDS: sodium chloride 0.9% 500 ML IV (14:04)
--- NOTE | 2021-10-14 08:06 | ONC FU_ITS ---
[facility] Patient Note Patient: Valentin Clark Unit #: [id number]: 1950 Dictated By: Sue PatelDate of Visit: Sep 30, 2021 Onc MED Follow-Up/Prog Note Chief Complaint: Mulitple myeloma. 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 In March 2018 she had bumped her head at work and in the process of that she became aware of a small lump, though it was actually in a slightly different area. She then noticed that the lump was getting larger. Evaluation with head MRI on 06/07/2018 showed evidence of a right parietal occipital extra-axial neoplasm, felt to be most likely meningeal in origin. It was noted to exert mass effect on the right parietal and occipital lobes, but without associated midline shift or white matter parenchymal edema. The lesion was noted to invade through the calvarium and into the subcutaneous parietal occipital scalp soft tissues. The mass measured 5.7 x 3.5 x 6 cm. 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 The area of occlusion was noted to extend over approximately 4.3 cm. She was seen by Dr. Landry and subsequently referred for neurosurgery evaluation at [facility]. Initially they had considered possible surgical resection. Her further evaluation there apparently included laboratory findings which were suspicious for myeloma, and it was recommended that she have treatment with radiation. She was seen here for further management on 07/14/2018. She then returned to Dr. Landry, and on 07/20/2018 she underwent open biopsy/resection of the extracranial extent of the mass. 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 Her further evaluation included protein electrophoresis which showed an IgG lambda monoclonal protein in the serum quantitating at 0.48 g/dL. The serum free light chain assay showed elevated lambda light chain at 374.65 mg/L with decreased kappa/lambda ratio at 0.06. The 24-hour urine protein electrophoresis showed no monoclonal protein. There were no other areas of lytic bone involvement noted on her skeletal survey. Bone marrow aspiration/biopsy on 07/30/2018 showed a monotypic plasma cell population, but it comprised only 2% of the total cellularity. A FISH panel for myeloma was unrevealing, and the standard chromosome analysis was normal. She was referred to Dr. Kaur, and she began radiation to the lesion on 07/30/2018. She completed treatment on 09/02/2018 to a total dose of 5,000 cGy. She had evaluation with CT pulmonary angiogram on 09/14/2018. It showed moderate bilateral pulmonary embolic burden. She began on anticoagulation with apixaban. During her subsequent follow-up she continued to have an open wound at the site of the plasmacytoma in the parietal-occipital scalp region. As of her follow-up visit on 10/19/2018 her M protein was stable 0.37 g/dL. In the absence of any evidence of symptomatic myeloma, she had otherwise just continued on observation/expectant management. However, due to her persistent scalp wound she had a repeat brain MRI on 01/11/2019. It showed evidence of residual neoplastic process at the resection site. There was associated dural involvement but with improved signal characteristics and decreased enhancement compared to the study from September 2018. She had further evaluation with PET/CT on 02/03/2019. It showed increase in size and expansile hypermetabolic lesion within the left ilium with extension of hypermetabolic tumor into the adjacent left iliac muscle. There was a new hypermetabolic lytic process within the right S1/S2 region. A large lytic mass within the posterior calvarium did not appear to have active hypermetabolism. Also noted, though, was a hypermetabolic lesion within the medullary canal of the distal left femoral diametaphysis and an additional hypermetabolic focus in the anterior cortex of the distal right femur concerning for additional areas of myeloma. In the setting of obvious progression of her myeloma, she began treatment with VRd on 02/23/2019. At that time she also received an infusion of IV Zometa for the lytic bone involvement. She experienced multiple toxicities with the VRd regimen, requiring dose reductions and treatment delays. Beginning with cycle 4, and June 2019 the Velcade was dropped from the regimen, and the following month her treatment was put on hold due to multiple toxicities, mainly severe fatigue and excessive somnolence. She was found to have a low B12 level, for which she began on B12 replacement therapy. At her follow-up visit on 11/28/2019 she was still mildly anemic, and transferrin saturation was still low at 17% despite being on oral iron replacement. As such, she was then given parenteral iron replacement with infusions of Injectafer on 11/28/2019 and on 12/05/2019. With the 11/28 visit she also was given denosumab 120 mg by subcutaneous injection for the lytic bone involvement. On 12/06/2019 she was admitted to the hospital with symptomatic hypocalcemia, serum calcium 5.9 mg/dL with albumin 2.9 g/dL. Renal function was stable with creatinine 1.0 mg/dL, but her potassium also was low at 3.2 mmol/L. She was given IV calcium and potassium replacement. She then continued further IV replacement as an outpatient. Despite that she was readmitted to the hospital with hypocalcemia on 12/15/2019. She was discharged home on 12/23/2019. Her evaluation included CT pulmonary angiogram which showed no evidence of pulmonary embolism. There was evidence of cardiomegaly, a small pericardial effusion, and small bilateral pleural effusions. Echocardiogram showed small, hemodynamically insignificant pericardial effusion and normal left ventricular function. She then returned here on 12/27/2019 and she has since then continued IV fluid and electrolyte replacement, daily for the first week and then on Mondays, Wednesdays, and Fridays. Despite that, she continued to feel weak and shaky, and she had ongoing complaints of nausea and anorexia. She continued to require IV fluid and electrolyte replacement but she did show gradual recovery. Her further treatment remained on hold. Repeat protein electrophoresis on 01/16/2020 showed stable M protein at 0.4 g/dL. The serum free light chain assay showed elevated free lambda light chain at 254 mg/L with decreased kappa/lambda ratio at 0.16. There was no monoclonal protein identified in the 24-hour urine protein electrophoresis. Restaging PET/CT on 02/24/2020 showed findings concerning for disease progression with new areas of marrow hypermetabolism within the right proximal humerus and within the bilateral distal femoral diametaphysis. The existing areas of involvement within the left ilium and sacrum showed further decrease in FDG uptake. With those findings, Dr Rodriguez had recommended that she proceed to second line treatment with daratumumab/dexamethasone. She eventually was able to begin her initial infusion of daratumumab on 03/21/2020. Her repeat free light chain assay prior to that showed further increase in the lambda light chain to 537 mg/L with kappa/lambda ratio 0.06. She tolerated the daratumumab with no adverse effects, and she then continued treatment weekly. On 05/03/2020 she underwent EGD and colonoscopy by Dr. Jimenes. The EGD showed no significant abnormal findings, and the colonoscopy showed just 2 small polyps in the rectum. 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 As of 05/09/2020 she had completed her 8th infusion on the weekly schedule, and as of 05/16/2020 she received her 1st of 8 planned infusions at the 2-week interval. Her M protein at that point was stable at 0.4 g/dL. The free light chain assay showed a decrease in the free lambda light chain from 537.42 205.2 mg/L. However, her repeat head MRI on 06/05/2020 showed significant progression of the myelomatous lesions within the skull compared to the study from January 2020. Numerous calvarial lesions were now present, the largest in the right parietal bone measuring 2.2 cm. The postoperative resection site in the posterior right parietal lobe showed significantly more enhancement with slightly more dural enhancement, also suspicious for progression of neoplastic changes. With that finding, she had continued the daratumumab and dexamethasone, but beginning on 06/27/2020 she added pomalidomide at a reduced dosage of 2 mg daily on a 21/28-day schedule. Her repeat PET/CT on 07/12/2020 showed a large lytic lesion within the posterior right calvarium, but without associated hypermetabolism. There were no new lesions identified within the calvarium. There was persistent hypermetabolism noted within the proximal right humerus, SUV 3.6, and there was new hypermetabolism within the marrow of the proximal left humerus, SUV 3.6. There was decrease in FDG uptake within the medial left ilium. There was persistent hypermetabolism noted in the right femoral diametaphysis and in the distal left femoral diametaphysis. There was new hypermetabolism noted in the proximal left tibia. Overall the findings were concerning for disease progression, and she was recommended to undergo a trial of salvage therapy with belantamab [id number]. Her other medical illnesses include hypertension and degenerative arthritis/degenerative disease of the spine. She has associated cervical and lumbar spinal stenosis. She has a history of endometriosis, and she has anxiety/depression. She is a nonsmoker. INTERIM HISTORY: On 08/29/2020 she began cycle 1 of belantamab [id number]. She tolerated the initial infusion without acute toxicity. She continued with cycle 2 on 09/19/2020. Her further management was then complicated by COVID-19 virus infection and by left upper extremity deep vein thrombosis for which she underwent revascularization of the left innominate vein and manual thrombectomy of the left subclavian vein. She was then able to continue the belantamab-mafodotin at 3-week intervals. As of 02/11/2021 she had completed her 5th cycle. Her further treatment was then put on hold due to visual symptoms, though her repeat eye exam in February had shown only grade 1 changes. Repeat head MRI on 02/26/2021 showed no evidence of recurrent or progressed disease. There is stable enhancement about the resection cavity in the right parieto-occipital area. Multiple enhancing myelomatous lesions involving the underlying calvarium appeared stable. The largest was in the right parietal calvarium measuring 1.8 cm. 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 There was associated encephalomalacia and gliosis. Restaging PET/CT on 03/15/2021 showed a small focus of increased tracer accumulation in the soft tissues/bone marrow of the right posterior skull with maximum SUV 4.70. That area had not been included on the previous study, so it could not be compared. However, the appearance was consistent with residual myeloma. Also noted was stable mild increased metabolic activity in the left proximal humerus with maximum SUV 3.03. There was no focal increase in the right proximal humerus, noted to have resolved compared to the prior study. Also noted was resolution of previously described metabolic increased activity in the left proximal fibula and in both distal femoral metadiaphyses. Overall the study was noted to be significantly improved. As of her follow-up visit on 05/07/2021 she was showing some decline in performance status. She reported having new pain in her back and she reported increased pain in her right shoulder. MRI of the right shoulder on 05/27/2021 showed an enhancing intramedullary lesion centered in the right humeral head measuring 3.5 x 1.9 cm. A smaller adjacent satellite lesion was noted to extend towards the greater tuberosity. The findings were most consistent with metastatic sites from the myeloma. She was seen by Dr. Bah for palliative radiation. She had had further evaluation with MRI of the left shoulder which showed an intramedullary T2 hyperintense enhancing lesion in the left humeral head measuring 2.6 x 2.1 x 4.1 cm. With those findings, she underwent palliative radiation to the right shoulder. Treatment was completed on 07/08/2021 to a total dose of 3000 cGy administered in 10 fractions. Repeat head MRI on 07/24/2021 showed stable postoperative findings associated with the previous right parietal occipital craniectomy. Enhancing myelomatous calvarial lesions, the largest in the right parietal calvarium measuring 1.8 cm, also appeared stable. There was no evidence for recurrent or progressed parenchymal disease. There was evidence for chronic infarcts in the left cerebellum with associated encephalomalacia and gliosis. With evidence of disease progression she then began further treatment with carfilzomib/dexamethasone with the carfilzomib administered on a standard day 1/2, day 8/9, and day 15/16 schedule to minimize the risk of toxicity. Her baseline echocardiogram showed adequate LV function with estimated ejection fraction at 60%. At day 8 she reported increased shortness of breath. A CT pulmonary angiogram showed no evidence of pulmonary emboli or other acute pathology. She was able to complete that cycle of treatment. Restaging PET/CT on 08/16/2021 showed stable left proximal humerus bone mineral tumor involvement. There was improvement in the appearance of the right posterior calvarial lesion with SUV activity consistent with inflammatory changes. There was no evidence for disease progression. She then continued with cycle 2 on 08/21/2021. Her echocardiogram at that time showed normal left ventricular systolic function with ejection fraction estimated at 60%. At cycle 2-day 8 she was reporting fatigue and shortness of breath, but she was able to continue her treatment. Her last treatment was on 09/23/2021-cycle 3 day 8 Kyprolis. She is seen for a follow-up visit. Ms. Clark is here today for follow-up. She is due for cycle 3-day 15 carfilzomib. She states overall she is doing about the same. She states that her right arm/shoulder pain is like it was before radiation and seems to be a little bit worse. She states has been having right sided neck shoulder and rib pain also. She states that is not new and has been going on for some time and it waxes and wanes. She states she cannot related to any particular activity. Her energy kind of comes and goes. For the most part she states she feels pretty good other than the pain. She states her appetite continues to be on the poor side . She does eat because I know I have to . She denies any fever chills or night sweats. She denies any nausea or vomiting. She states her bowels are normal for her. She continues to have a very active bladder . She denies any UTI symptoms. She has a persistent pressure-like discomfort in the substernal/epigastric area. It has been unaffected by pantoprazole, She is requesting to change back to lansoprazole as she felt that did work better. We will send her a new prescription for this as well. She states she has been out walking her dog some and tolerating this well. Her ECOG is 1. Past Medical History: Anxiety/depression Cervical stenosis Degenerative arthritis Degenerative disease of the spine Depression Endometriosis Hypertension Lumbar stenosis DVT LEFT INTERNAL JUGLAR, LEFT SUBCLAVIAN in 2019 COVID 19 + in 2019 Past Surgical History: Bilateral cataract excisions Cholecystectomy/gastric stapling Removal of ovarian cyst x 2 Tonsillectomy Covid vaccine #3 in 2020 FLU vac in 2020 Covid vaccine #2 in 2020 COVID 19 1st in 2020 Angioplasty/stenting of the L innominate vein in 2020 Endovascular revascularization of left upper extremity veins and central veins-[facility] in 2020 Percutaneous mechanical thrombectomy of the L subclavian vein-[facility] in 2020 Left subclavian venous access device???Dr. Soriano[facility] [place] Colonoscopy in 2018 Allergies: BusPIRone HCl, Codeine and Related, Levaquin, and Morphine Derivatives. Medications: Albuterol Sulfate HFA Aerosol, solution Inhalation PRN Arthritis Pain Reliever 2 Gm/60mL (of 1 %) Gel (jelly) Topical PRN Aspirin 1 Tablet (of 81 mg) Tablet, chewable Oral daily B-12 Dots 1 Tablet (of 500 mcg) Tablet Dispersable Oral daily Claritin 1 Capsule (of 10 mg) Oral daily PRN Eliquis 1 Tablet (of 5 mg) Oral b.i.d. FLUoxetine HCl 1 Tablet (of 10 mg) Oral daily FLUoxetine HCl 1 Capsule (of 20 mg) Oral daily hydrALAZINE HCl 1 Tablet (of 25 mg) Oral b.i.d. HYDROcodone-Acetaminophen 1 - 2 Tablet (of 5-325 mg) Oral q 4 to 6 hours PRN Lasix 1 - 2 Tablet (of 40 mg) Oral PRN LORazepam 1 Tablet (of 0.5 mg) Oral b.i.d. PRN Probiotic Capsule Oral PRN RA Senna 1 Capsule (of 8.6 mg) Oral daily PRN Vitamin D3 Super Strength 1 Capsule (of 50 mcg ) Oral b.i.d. Family History: Ms. Clark's mother at age 84: emphysema, and congestive heart failure. Ms. Clark's father at age 53: heart disease, and myocardial infarction. Ms. Clark has 2 brothers: 1 alive, 1 . Ms. Clark's first brother's colon cancer, and type ii diabetes. Another brother's colon cancer. She has 2 sisters: 2 alive. Ms. Clark's first sister's herat disease, and type ii diabetes. Father of heart attack age 51. Mother with emphysema at age 78. She also had heart disease and diabetes. A sister has diabetes and heart disease. A brother has diabetes and he has been treated for colon cancer. A maternal uncle also had colon cancer, and a maternal aunt had breast cancer. 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 Ms. Clark has never smoked. She drinks occasionally. She is a nonsmoker. She has had just rare alcohol use. Review Of Symptoms: <See Above> Vital Signs: Performed on Sep 30, 2021 12:28 Height - 63.50 in Weight - 205.6 lbs (HIGH) BSA - 1.97 sq.m BMI - 35.85 (HIGH) Temperature - 97.4 F (LOW) Pulse - 62 /min Respiration - 18 /min BP - 154/78 mm(hg) (HIGH) O2 Sat - 97 % Pain - 6 Fatigue - 6,1 - No physically strenuous activity, but ambulatory and able to carry out light or sedentary work (e.g. office work, light house work). (ECOG) Physical Examination: Constitutional Alert, oriented, no acute distress. Skin pink, warm and dry. Head Normocephalic; atraumatic. Posterior scalp wound is healing well without exudate or redness. It remains open-covered with dressing. Eyes Conjunctivae and sclerae are clear and without icterus. Pupils are reactive and equal. Neck Supple without masses or thyromegaly. No jugular venous distension. Hematologic/Lymphatic No petechiae or purpura. No tender or palpable lymph nodes in the cervical or supraclavicular areas. Respiratory Lungs are clear to auscultation without rhonchi or wheezing. Cardiovascular Regular rate and rhythm of heart without murmurs,clicks, gallops or rubs. Chest left sided port-unremarkable. Abdomen Non-tender, non-distended, no masses, ascites. .Good bowel sounds noted in all quads. No guarding or rebound tenderness. No pulsatile masses. Back/Spine Non-tender to palpation. Extremities No visible deformities, no cyanosis, clubbing or edema. Musculoskeletal No tenderness or swelling. Integumentary No rashes or lesions. Neurologic No sensory or motor deficits, normal cerebellar function, normal-slow gait. Psychiatric Alert and oriented times three. Coherent speech. Verbalizes understanding of our discussions today. Laboratory:Test performed on Sep 30, 2021 09:25 Sodium 140 mmol/L Potassium 4.2 mmol/L Chloride 107 mmol/L CO2 25 mmol/L Anion Gap 12.2 BUN 12 mg/dL Creatinine 1.1 mg/dL Cr Clearance (Est) 70.0600 mL/min eGFR 49.1 mL/min Glucose 90 mg/dL Osmolality - Calculated 289 mOsm/kg Calcium 8.2 mg/dL Protein, Total 5.2 g/dL Albumin 3.2 g/dL Globulin 2.0 g/dL Bilirubin, Total 0.5 mg/dL ALT (SGPT) 39 U/L AST (SGOT) 48 U/L Alkaline Phosphatase 99 IU/L WBC 7.4 10 3/uL RBC 3.74 10 6/uL HGB 11.3 g/dL HCT 35.4 % MCV 94.7 fl MCH 30.2 pg MCHC 31.9 g/dL RDW 15.8 % Platelet Count 225 10 3/cmm MPV 11.2 fL Neutrophils 4.85 10 3/uL Lymphocytes 1.4 10 3/uL Monocytes 0.9 10 3/uL Eosinophils 0.1 10 3/uL Basophils 0.1 10 3/uL Neutrophil % 65.7 % Lymphocyte % 18.8 % Monocyte % 11.9 % Eosinophil % 1.8 % Basophils % 1.1 % NRBC % 0 % Test performed on Aug 21, 2021 09:10 [place] Free Light Chains 11.3 mg/L Lambda Free Light Chains 30.3 mg/L [place]/Lambda Free Ratio 0.37 Test performed on Jul 31, 2021 10:35 Vitamin B12 463 pg/mL Test performed on Jul 25, 2021 12:10 LDH (Total) 104 U/L IgA 50 mg/dL Test performed on Jul 08, 2021 14:29 U Albumin % 0 % UPE Interpretation SEE NOTE Agarose electrophoresis of urine reveals that quantities of albumin and globulin fractions are below the level of detection by this method. No abnormal protein is observed. THIS TEST WAS PERFORMED AT: [facility] [address] [id number] [place] [address] ISIDORO RHODES DO,MPH U Creatinine, 24 hr 1.20 g/24 h U [id number] 0 % U [id number] 0 % U Beta Globulin 0 % U Gamma Globulin 0 % Test performed on Jun 17, 2021 16:20 SARS CoV-2 Ag Negative The results are negative with the test specificity 100%, sensitivity 97%, and positive predictive value 100%. If the patient shows clinical signs and symptoms of SARS-CoV-2, kindly defer to a NAAT detection method. Test performed on May 07, 2021 14:15 IgG 390 mg/dL IgM 14 mg/dL Test performed on April 04, 2021 11:07 ESR (Sed Rate) 16 mm/hr Impression: 1. IgG lambda myeloma presenting with plasmacytoma involving the right parietal-occipital extra-axial space. She underwent resection/open biopsy of the extracranial portion of the mass on 07/20/2018. 2. She has persistent open wound at the biopsy site. 3. She has had thromboembolism with pulmonary emboli documented by CT pulmonary angiogram on 09/14/2018. She developed left upper extremity deep vein thrombosis in October 2020 in association with COVID-19 virus infection. She required hospitalization in November 2020 for revascularization of the left innominate vein and manual thrombectomy of the left subclavian vein. 4. Degenerative arthritis and degenerative disease of the spine with associated cervical and lumbar spinal stenosis. 5. Hypertension. 6. Endometriosis. 7. Anxiety/depression. Plan/Problems Addressed at this Visit: 1. IgG lambda myeloma presenting with plasmacytoma involving the right parietal-occipital extra-axial space. She underwent resection/open biopsy of the extracranial portion of the mass on 07/20/2018. She then underwent radiation, completed on 09/02/2018 to a total dose of 5000 cGy. She had associated IgG lambda monoclonal protein in the serum and 2% monoclonal plasma cells in the bone marrow, consistent with underlying myeloma. Initially it appeared to otherwise not be symptomatic, and she was followed expectantly following completion of the radiation. By January 2019 she had developed increasing pain in the left hip/buttock area. Her repeat protein electrophoresis studies showed only a slight increase in her M protein, but her repeat PET/CT on 02/03/2019 showed significant progression of lytic bone involvement in the left ilium. There was also possible involvement in the distal right femur. The area of lytic involvement in the calvarium was not metabolically active. Her subsequent myeloma therapies included: 1. Velcade/Revlimid/dexamethasone beginning 02/23/2019. She had multiple toxicities, requiring dose reductions and treatment delays. As of July 2019 she was transitioned to maintenance Revlimid at 5 mg daily. 2. Second line treatment with daratumumab/dexamethasone began 03/21/2020. As of 06/27/2020 pomalidomide was added at a reduced dosage. She tolerated the pomalidomide very poorly due to [employer] side effects. Treatment was then stopped due to evidence of disease progression by PET/CT on 07/12/2020. 3. She began salvage therapy with belantamab mafodotin 08/29/2020. That treatment was interrupted when she was confirmed to have COVID-19 virus infection following the 2nd cycle. It was restarted in December 2020. It was stopped after the 5th cycle, administered on 02/11/2021, due to visual changes. She appeared to have significant response by follow-up PET/CT on 03/15/2021. However, with her persistent visual symptoms, she opted to remain off treatment. During subsequent follow-up she had reported increasing pain in the right shoulder. 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 She was given palliative radiation to the right shoulder, completed on 07/08/2021 to a total dose of 3000 cGy, ministered in 10 fractions. She had some improvement in the pain with the radiation. On 07/25/2021 she began further treatment with carfilzomib/dexamethasone with the carfilzomib administered daily for 2 days on a 3-week out of 4 schedule. She was able to complete one full cycle of treatment, though during that time she complained of increasing fatigue and shortness of breath. She was evaluated with CT pulmonary angiogram, which showed no evidence of pulmonary emboli or other acute pathology. 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 There was no evidence of disease progression. She continued with cycle 2 on 08/21/2021. Echocardiogram at that point showed normal left ventricular function with estimated ejection fraction at 60%. She has now completed 2 cycles through day 8 and 9-day 15 and 16 was held. She was able to resume cycle 3-day 1 on 09/16/2021. She is now on a day 1. 8 and 15 schedule. A. Proceed with cycle 3 day 15 carfilzomibt 70 mg/m??? by IV infusion. B. Change PPI to lansoprazole C. Today's labs reviewed in detail discussed with Ms. Clark and a copy was given to her. WBC 7.4, hemoglobin 11.3, platelets 225,000 ANC is 4000 150. Creatinine 1.1 potassium 4.2 random glucose was 90 LFTs reveal an ALT of 39 AST is 48 alk phos is 99. D. We will plan to see her back in 2 weeks with CBC CMP SPEP QUIGS and kappa free light chain assay. She will be due for cycle 4 carfilzomib at that time. E. Mrs. Clark was instructed to contact us in interim should questions or problems arise. F. She was encouraged to take Tylenol or prescription pain medication for her persistent right arm pain. She has had radiation to the right shoulder area and will need to determine what other options we have for her. 2. 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 3. She has had thromboembolism including pulmonary emboli in August 2018 and left upper extremity deep vein thrombosis while on anticoagulation. She continues her anticoagulation with apixaban 5 mg twice daily. Signed By: Sue Patel-, AOCNP Ruiz Rodriguez MD <<Signature on File>>
== END 2021-09-30 06:45 | disposition home or self-care (01) ==
PROVIDERS: PCP Electrodiagnostic Medicine; Visit Provider Nurse Practitioner
DX: Z51.11 Encounter for antineoplastic chemotherapy (principal); C90.00 Multiple myeloma not having achieved remission; C79.51 Secondary malignant neoplasm of bone; D47.2 Monoclonal gammopathy; D50.9 Iron deficiency anemia, unspecified
CPT/HCPCS: 80053; 85025; 96361; 96367; 96375; 96413; 99215; J1100; J2405; J3490; J7040; J7050; J9047

== ENCOUNTER 2021-10-14 09:05 | Outpatient (CLI) | payer MEDICARE, SELFPAY ==
[2021-10-14 09:52] LABS: Basophils # 0.1 10^3/uL (0.0-0.1); Basophils % 2.1 %; Eosinophils # 0.2 10^3/uL (0.0-0.8); Eosinophils % 2.8 %; Hematocrit 33.2 % (37.0-47.0); Lymphocytes # 1.6 10^3/uL (0.8-4.8); Lymphocytes % 24.5 %; Mean Corpuscular HGB Conc 33.1 g/dL (30.0-36.0); Mean Corpuscular Hemoglobin 31.5 pg (28.0-34.0); Mean Corpuscular Volume 95.1 fl (81-99); Mean Platelet Volume 11.3 fL (7.4-10.4); Monocytes # 0.8 10^3/uL (0.2-0.9); Monocytes % 12.9 %; Neutrophils # 3.73 10^3/uL (1.8-7.7); Neutrophils % 57.1 %; Nucleated Red Blood Cells % 0 %; Platelet Count 345 10^3/cmm (130-400); Red Blood Count 3.49 10^6/uL (4.1-5.3); Red Cell Distribution Width 14.6 % (12.1-15.1); White Blood Count 6.5 10^3/uL (4.0-10.0)
[2021-10-14 10:25] LABS: Alanine Aminotransferase 15 U/L (0-33); Albumin Level 3.5 g/dL (3.5-5.2); Alkaline Phosphatase 104 IU/L (35-105); Anion Gap 12.4 (5-19); Aspartate Amino Transferase 17 U/L (0-32); Blood Urea Nitrogen 12 mg/dL (8-23); Calcium 8.7 mg/dL (8.5-10.5); Carbon Dioxide 24 mmol/L (22-29); Chloride 109 mmol/L (98-107); Ferritin 135 ng/mL (15-150); Glomerular Filtration Rate 61.9 mL/min (90-130); Glucose 90 mg/dL (65-115); Iron 109 ug/dL (37-145); Osmolality Calculated 291 mOsm/kg (285-295); Percent Saturation 38.9 % (20-50); Potassium 4.4 mmol/L (3.5-5.1); Sodium 141 mmol/L (136-145); Total Bilirubin 0.3 mg/dL (0.15-1.2); Total Iron Binding Capacity 280 mcg/dl; Total Protein 5.5 g/dL (6.6-8.7); Unsaturated Iron Binding 171 ug/dL (112-347)
[2021-10-14] MEDS: ondansetron 2 mg/ML SDV 2 mL 8 MG IV (11:25)
[2021-10-14] MEDS: sodium chloride 0.9% 250 ML 400 ML IV (11:30)
[2021-10-14] MEDS: diphenhydrAMINE 50 mg/mL SDV 1mL 25 MG IV (11:40)
[2021-10-14] MEDS: acetaminophen 325 mg Tablet 650 MG PO (11:40)
[2021-10-14 11:41] LABS: Add Urine Microscopic? YES; Bilirubin Urine Neg (Negative); Blood Urine Neg (Negative); Glucose Urine UA Norm (Normal); Ketones Urine Negative (Negative); Leukocyte Esterase Urine 1+ (Negative); Nitrate Urine Negative (Negative); Protein Urine Neg (Negative); Specific Gravity, Urine 1.015 (1.005-1.030); Urine Appearance Clear (CLEAR); Urine Color Yellow (Yellow); Urobilinogen Urine Norm (Negative); pH Urine 5 (5-7)
[2021-10-14 11:45] LABS: Add Urine Culture? No; Bacteria Urine TRACE /hpf; Other Crystals Urine TALC /hpf
[2021-10-14] MEDS: sodium chloride 0.9% 500 ML 400 ML IV (13:35)
[2021-10-15 12:07] LABS: PROTEIN, TOTAL 5.1 g/dL (6.1-8.1)
[2021-10-15 14:38] LABS: KAPPA LIGHT CHAIN, FREE, SERUM 15.2 mg/L (3.3-19.4); KAPPA/LAMBDA LIGHT CHAINS FREE 0.58 (0.26-1.65)
[2021-10-15 14:48] LABS: ABNORMAL PROTEIN BAND 1 0.1 g/dL (NONE DETECTED); ALBUMIN 3.1 g/dL (3.8-4.8); ALPHA 1 GLOBULIN 0.3 g/dL (0.2-0.3); ALPHA 2 GLOBULIN 0.8 g/dL (0.5-0.9); BETA 1 GLOBULIN 0.4 g/dL (0.4-0.6); BETA 2 GLOBULIN 0.2 g/dL (0.2-0.5); GAMMA GLOBULIN 0.3 g/dL (0.8-1.7)
--- NOTE | 2021-10-18 18:39 | ONC FU_ITS ---
Dr. Rodriguez Patient Follow-Up Note Patient: Valentin Clark Unit #: [id number]: 1950 Dicatated By: Ruiz Rodriguez M.D.Date of Visit:Oct 14, 2021 Onc Med Follow-up/Prog Note Chief Complaint: Mulitple myeloma. 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 In March 2018 she had bumped her head at work and in the process of that she became aware of a small lump, though it was actually in a slightly different area. She then noticed that the lump was getting larger. Evaluation with head MRI on 06/07/2018 showed evidence of a right parietal occipital extra-axial neoplasm, felt to be most likely meningeal in origin. It was noted to exert mass effect on the right parietal and occipital lobes, but without associated midline shift or white matter parenchymal edema. The lesion was noted to invade through the calvarium and into the subcutaneous parietal occipital scalp soft tissues. The mass measured 5.7 x 3.5 x 6 cm. 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 The area of occlusion was noted to extend over approximately 4.3 cm. She was seen by Dr. Landry and subsequently referred for neurosurgery evaluation at [facility]. Initially they had considered possible surgical resection. Her further evaluation there apparently included laboratory findings which were suspicious for myeloma, and it was recommended that she have treatment with radiation. She was seen here for further management on 07/14/2018. She then returned to Dr. Landry, and on 07/20/2018 she underwent open biopsy/resection of the extracranial extent of the mass. 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 Her further evaluation included protein electrophoresis which showed an IgG lambda monoclonal protein in the serum quantitating at 0.48 g/dL. The serum free light chain assay showed elevated lambda light chain at 374.65 mg/L with decreased kappa/lambda ratio at 0.06. The 24-hour urine protein electrophoresis showed no monoclonal protein. There were no other areas of lytic bone involvement noted on her skeletal survey. Bone marrow aspiration/biopsy on 07/30/2018 showed a monotypic plasma cell population, but it comprised only 2% of the total cellularity. A FISH panel for myeloma was unrevealing, and the standard chromosome analysis was normal. She was referred to Dr. Kaur, and she began radiation to the lesion on 07/30/2018. She completed treatment on 09/02/2018 to a total dose of 5,000 cGy. She had evaluation with CT pulmonary angiogram on 09/14/2018. It showed moderate bilateral pulmonary embolic burden. She began on anticoagulation with apixaban. During her subsequent follow-up she continued to have an open wound at the site of the plasmacytoma in the parietal-occipital scalp region. As of her follow-up visit on 10/19/2018 her M protein was stable 0.37 g/dL. In the absence of any evidence of symptomatic myeloma, she had otherwise just continued on observation/expectant management. However, due to her persistent scalp wound she had a repeat brain MRI on 01/11/2019. It showed evidence of residual neoplastic process at the resection site. There was associated dural involvement but with improved signal characteristics and decreased enhancement compared to the study from September 2018. She had further evaluation with PET/CT on 02/03/2019. It showed increase in size and expansile hypermetabolic lesion within the left ilium with extension of hypermetabolic tumor into the adjacent left iliac muscle. There was a new hypermetabolic lytic process within the right S1/S2 region. A large lytic mass within the posterior calvarium did not appear to have active hypermetabolism. Also noted, though, was a hypermetabolic lesion within the medullary canal of the distal left femoral diametaphysis and an additional hypermetabolic focus in the anterior cortex of the distal right femur concerning for additional areas of myeloma. In the setting of obvious progression of her myeloma, she began treatment with VRd on 02/23/2019. At that time she also received an infusion of IV Zometa for the lytic bone involvement. She experienced multiple toxicities with the VRd regimen, requiring dose reductions and treatment delays. Beginning with cycle 4, and June 2019 the Velcade was dropped from the regimen, and the following month her treatment was put on hold due to multiple toxicities, mainly severe fatigue and excessive somnolence. She was found to have a low B12 level, for which she began on B12 replacement therapy. At her follow-up visit on 11/28/2019 she was still mildly anemic, and transferrin saturation was still low at 17% despite being on oral iron replacement. As such, she was then given parenteral iron replacement with infusions of Injectafer on 11/28/2019 and on 12/05/2019. With the 11/28 visit she also was given denosumab 120 mg by subcutaneous injection for the lytic bone involvement. On 12/06/2019 she was admitted to the hospital with symptomatic hypocalcemia, serum calcium 5.9 mg/dL with albumin 2.9 g/dL. Renal function was stable with creatinine 1.0 mg/dL, but her potassium also was low at 3.2 mmol/L. She was given IV calcium and potassium replacement. She then continued further IV replacement as an outpatient. Despite that she was readmitted to the hospital with hypocalcemia on 12/15/2019. She was discharged home on 12/23/2019. Her evaluation included CT pulmonary angiogram which showed no evidence of pulmonary embolism. There was evidence of cardiomegaly, a small pericardial effusion, and small bilateral pleural effusions. Echocardiogram showed small, hemodynamically insignificant pericardial effusion and normal left ventricular function. She then returned here on 12/27/2019 and she has since then continued IV fluid and electrolyte replacement, daily for the first week and then on Mondays, Wednesdays, and Fridays. Despite that, she continued to feel weak and shaky, and she had ongoing complaints of nausea and anorexia. She continued to require IV fluid and electrolyte replacement but she did show gradual recovery. Her further treatment remained on hold. Repeat protein electrophoresis on 01/16/2020 showed stable M protein at 0.4 g/dL. The serum free light chain assay showed elevated free lambda light chain at 254 mg/L with decreased kappa/lambda ratio at 0.16. There was no monoclonal protein identified in the 24-hour urine protein electrophoresis. Restaging PET/CT on 02/24/2020 showed findings concerning for disease progression with new areas of marrow hypermetabolism within the right proximal humerus and within the bilateral distal femoral diametaphysis. The existing areas of involvement within the left ilium and sacrum showed further decrease in FDG uptake. With those findings, I had recommended that she proceed to second line treatment with daratumumab/dexamethasone. She eventually was able to begin her initial infusion of daratumumab on 03/21/2020. Her repeat free light chain assay prior to that showed further increase in the lambda light chain to 537 mg/L with kappa/lambda ratio 0.06. She tolerated the daratumumab with no adverse effects, and she then continued treatment weekly. On 05/03/2020 she underwent EGD and colonoscopy by Dr. Jimenes. The EGD showed no significant abnormal findings, and the colonoscopy showed just 2 small polyps in the rectum. 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 As of 05/09/2020 she had completed her 8th infusion on the weekly schedule, and as of 05/16/2020 she received her 1st of 8 planned infusions at the 2-week interval. Her M protein at that point was stable at 0.4 g/dL. The free light chain assay showed a decrease in the free lambda light chain from 537.42 205.2 mg/L. However, her repeat head MRI on 06/05/2020 showed significant progression of the myelomatous lesions within the skull compared to the study from January 2020. Numerous calvarial lesions were now present, the largest in the right parietal bone measuring 2.2 cm. The postoperative resection site in the posterior right parietal lobe showed significantly more enhancement with slightly more dural enhancement, also suspicious for progression of neoplastic changes. With that finding, she had continued the daratumumab and dexamethasone, but beginning on 06/27/2020 she added pomalidomide at a reduced dosage of 2 mg daily on a 21/28-day schedule. Her repeat PET/CT on 07/12/2020 showed a large lytic lesion within the posterior right calvarium, but without associated hypermetabolism. There were no new lesions identified within the calvarium. There was persistent hypermetabolism noted within the proximal right humerus, SUV 3.6, and there was new hypermetabolism within the marrow of the proximal left humerus, SUV 3.6. There was decrease in FDG uptake within the medial left ilium. There was persistent hypermetabolism noted in the right femoral diametaphysis and in the distal left femoral diametaphysis. There was new hypermetabolism noted in the proximal left tibia. Overall the findings were concerning for disease progression, and she was recommended to undergo a trial of salvage therapy with belantamab [id number]. Her other medical illnesses include hypertension and degenerative arthritis/degenerative disease of the spine. She has associated cervical and lumbar spinal stenosis. She has a history of endometriosis, and she has anxiety/depression. She is a nonsmoker. INTERIM HISTORY: On 08/29/2020 she began cycle 1 of belantamab [id number]. She tolerated the initial infusion without acute toxicity. She continued with cycle 2 on 09/19/2020. Her further management was then complicated by COVID-19 virus infection and by left upper extremity deep vein thrombosis for which she underwent revascularization of the left innominate vein and manual thrombectomy of the left subclavian vein. She was then able to continue the belantamab-mafodotin at 3-week intervals. As of 02/11/2021 she had completed her 5th cycle. Her further treatment was then put on hold due to visual symptoms, though her repeat eye exam in February had shown only grade 1 changes. Repeat head MRI on 02/26/2021 showed no evidence of recurrent or progressed disease. There is stable enhancement about the resection cavity in the right parieto-occipital area. Multiple enhancing myelomatous lesions involving the underlying calvarium appeared stable. The largest was in the right parietal calvarium measuring 1.8 cm. 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 There was associated encephalomalacia and gliosis. Restaging PET/CT on 03/15/2021 showed a small focus of increased tracer accumulation in the soft tissues/bone marrow of the right posterior skull with maximum SUV 4.70. That area had not been included on the previous study, so it could not be compared. However, the appearance was consistent with residual myeloma. Also noted was stable mild increased metabolic activity in the left proximal humerus with maximum SUV 3.03. There was no focal increase in the right proximal humerus, noted to have resolved compared to the prior study. Also noted was resolution of previously described metabolic increased activity in the left proximal fibula and in both distal femoral metadiaphyses. Overall the study was noted to be significantly improved. As of her follow-up visit on 05/07/2021 she was showing some decline in performance status. She reported having new pain in her back and she reported increased pain in her right shoulder. MRI of the right shoulder on 05/27/2021 showed an enhancing intramedullary lesion centered in the right humeral head measuring 3.5 x 1.9 cm. A smaller adjacent satellite lesion was noted to extend towards the greater tuberosity. The findings were most consistent with metastatic sites from the myeloma. She was seen by Dr. Bah for palliative radiation. She had had further evaluation with MRI of the left shoulder which showed an intramedullary T2 hyperintense enhancing lesion in the left humeral head measuring 2.6 x 2.1 x 4.1 cm. With those findings, she underwent palliative radiation to the right shoulder. Treatment was completed on 07/08/2021 to a total dose of 3000 cGy administered in 10 fractions. Repeat head MRI on 07/24/2021 showed stable postoperative findings associated with the previous right parietal occipital craniectomy. Enhancing myelomatous calvarial lesions, the largest in the right parietal calvarium measuring 1.8 cm, also appeared stable. There was no evidence for recurrent or progressed parenchymal disease. There was evidence for chronic infarcts in the left cerebellum with associated encephalomalacia and gliosis. With evidence of disease progression she then began further treatment with carfilzomib/dexamethasone with the carfilzomib administered on a standard day 1/2, day 8/9, and day 15/16 schedule to minimize the risk of toxicity. Her baseline echocardiogram showed adequate LV function with estimated ejection fraction at 60%. At day 8 she reported increased shortness of breath. A CT pulmonary angiogram showed no evidence of pulmonary emboli or other acute pathology. She was able to complete that cycle of treatment. Restaging PET/CT on 08/16/2021 showed stable left proximal humerus bone mineral tumor involvement. There was improvement in the appearance of the right posterior calvarial lesion with SUV activity consistent with inflammatory changes. There was no evidence for disease progression. She then continued with cycle 2 on 08/21/2021. Her echocardiogram at that time showed normal left ventricular systolic function with ejection fraction estimated at 60%. At cycle 2-day 8 she was reporting fatigue and shortness of breath, but she was able to continue her treatment. Her further treatment was then put on hold, as her symptoms continued to worsen. During subsequent follow-up, she was feeling better, and she was able to continue with cycle 3 on 09/16/2021. Her protein electrophoresis at that point showed her M protein stable at 0.2 g/dL. With that cycle, she was able to complete day 1, day 8, and day 15 treatments. She is seen for a follow-up visit. Her energy lately has been a little better. She is doing housework. ECOG score is 1. She says she is not hungry, but she does eat. She has not had fever or night sweats, but she did have some sweating during the day yesterday. She has not had sore mouth or throat. Her breathing lately has been better. She does not complain of cough, and she has not been having chest pain. She was having nausea, but that seems to be okay. Her acid reflux symptoms have improved. She has had loose stools with antibiotic therapy. She has frequent urination. She sometimes has an urge to go but does not get much out. She has been on antibiotic therapy for urinary tract infection. She has been having a lot of burning. She has been having more musculoskeletal pain, particularly in the right shoulder and right arm. The pain radiates all the way down to the hand. She is also having pain in her right rib cage. It sometimes extends over to the left side. She has pain across her mid to lower back, also worse on the right side. She has had headaches. She is on topical antibiotic for her scalp wound. She has numbness in her right great toe and she complains of having muscle cramps in her hands and feet. Medications: Albuterol Sulfate HFA Aerosol, solution Inhalation PRN, Arthritis Pain Reliever 2 Gm/60mL (of 1 %) Gel (jelly) Topical PRN, Aspirin 1 Tablet (of 81 mg) Tablet, chewable Oral daily, B-12 Dots 1 Tablet (of 500 mcg) Tablet Dispersable Oral daily, Claritin 1 Capsule (of 10 mg) Oral daily PRN, Eliquis 1 Tablet (of 5 mg) Oral b.i.d., FLUoxetine HCl 1 Tablet (of 10 mg) Oral daily, FLUoxetine HCl 1 Capsule (of 20 mg) Oral daily, hydrALAZINE HCl 1 Tablet (of 25 mg) Oral b.i.d., HYDROcodone-Acetaminophen 1 - 2 Tablet (of 5-325 mg) Oral q 4 to 6 hours PRN, Lasix 1 - 2 Tablet (of 40 mg) Oral PRN, LORazepam 1 Tablet (of 0.5 mg) Oral b.i.d. PRN, Mupirocin (2 %) Ointment Topical Take as Directed, Probiotic Capsule Oral b.i.d., RA Senna 1 Capsule (of 8.6 mg) Oral daily PRN, Vitamin D3 Super Strength 1 Capsule (of 50 mcg ) Oral b.i.d. Allergies: BusPIRone HCl, Codeine and Related, Levaquin, and Morphine Derivatives. Vital Signs: Performed on Oct 14, 2021 14:35 Height - 63.50 in Temperature - 97.5 F (LOW) Pulse - 68 /min Respiration - 18 /min BP - 117/56 mm(hg) O2 Sat - 97 % Pain - 0 Fatigue - 0 Performed on Oct 14, 2021 10:47 Height - 63.50 in Weight - 200 lbs (LOW) BSA - 1.94 sq.m BMI - 34.87 (HIGH) Temperature - 98.0 F (LOW) Pulse - 64 /min Respiration - 16 /min BP - 126/76 mm(hg) O2 Sat - 98 % Pain - 6 Fatigue - 5 Physical Examination: Constitutional - She looks pretty good generally, Head - There is an open defect in the right occipital scalp. There are multiple small nodules palpable along the lateral/inferior margin, Eyes - Sclerae nonicteric. Conjunctivae clear, ENMT - No lesions noted in the oral cavity, Hematologic/Lymphatic - No cervical, clavicular, or axillary adenopathy, Respiratory - Lungs sound clear, Cardiovascular - Heart rhythm is regular. There is a II/ systolic murmur. There is no gallop or rub noted, Abdomen - Soft. Liver and spleen are not enlarged. There is no abdominal mass or ascites noted and there is no inguinal adenopathy, Extremities - No edema, Neurologic - No focal neurologic deficits noted. Lab/Imaging: Test performed on Oct 14, 2021 09:27 Ferritin 135 ng/mL Iron 109 mcg/dL Sodium 141 mmol/L Iron Binding Capacity (TIBC) 280 mcg/dl Potassium 4.4 mmol/L % Iron Saturation 38.9 % Chloride 109 mmol/L CO2 24 mmol/L UIBC 171 mcg/dL Anion Gap 12.4 BUN 12 mg/dL Creatinine 0.9 mg/dL Cr Clearance (Est) 85.6300 mL/min eGFR 61.9 mL/min Glucose 90 mg/dL Osmolality - Calculated 291 mOsm/kg Calcium 8.7 mg/dL Protein, Total 5.5 g/dL Albumin 3.5 g/dL Globulin 2.0 g/dL Bilirubin, Total 0.3 mg/dL ALT (SGPT) 15 U/L AST (SGOT) 17 U/L Alkaline Phosphatase 104 IU/L WBC 6.5 10 3/uL RBC 3.49 10 6/uL HGB 11.0 g/dL HCT 33.2 % MCV 95.1 fl MCH 31.5 pg MCHC 33.1 g/dL RDW 14.6 % Platelet Count 345 10 3/cmm MPV 11.3 fL Neutrophils 3.73 10 3/uL Lymphocytes 1.6 10 3/uL Monocytes 0.8 10 3/uL Eosinophils 0.2 10 3/uL Basophils 0.1 10 3/uL Neutrophil % 57.1 % Lymphocyte % 24.5 % Monocyte % 12.9 % Eosinophil % 2.8 % Basophils % 2.1 % NRBC % 0 % [place] Free Light Chains 15.2 mg/L Lambda Free Light Chains 26.0 mg/L [place]/Lambda Free Ratio 0.58 Problem List: 1. IgG lambda myeloma presenting with plasmacytoma involving the right parietal-occipital extra-axial space. She underwent resection/open biopsy of the extracranial portion of the mass on 07/20/2018. 2. She has persistent open wound at the biopsy site. 3. She has had thromboembolism with pulmonary emboli documented by CT pulmonary angiogram on 09/14/2018. She developed left upper extremity deep vein thrombosis in October 2020 in association with COVID-19 virus infection. She required hospitalization in November 2020 for revascularization of the left innominate vein and manual thrombectomy of the left subclavian vein. 4. Degenerative arthritis and degenerative disease of the spine with associated cervical and lumbar spinal stenosis. 5. Hypertension. 6. Endometriosis. 7. Anxiety/depression. Problems Addressed with this Encounter and Plan: 1. Patient with IgG lambda myeloma presenting with plasmacytoma involving the right parietal-occipital extra-axial space. She underwent resection/open biopsy of the extracranial portion of the mass on 07/20/2018. She then underwent radiation, completed on 09/02/2018 to a total dose of 5000 cGy. She had associated IgG lambda monoclonal protein in the serum and 2% monoclonal plasma cells in the bone marrow, consistent with underlying myeloma. Initially it appeared to otherwise not be symptomatic, and she was followed expectantly following completion of the radiation. By January 2019 she had developed increasing pain in the left hip/buttock area. Her repeat protein electrophoresis studies showed only a slight increase in her M protein, but her repeat PET/CT on 02/03/2019 showed significant progression of lytic bone involvement in the left ilium. There was also possible involvement in the distal right femur. The area of lytic involvement in the calvarium was not metabolically active. Her subsequent myeloma therapies included: 1. Velcade/Revlimid/dexamethasone beginning 02/23/2019. She had multiple toxicities, requiring dose reductions and treatment delays. As of July 2019 she was transitioned to maintenance Revlimid at 5 mg daily. 2. Second line treatment with daratumumab/dexamethasone began 03/21/2020. As of 06/27/2020 pomalidomide was added at a reduced dosage. She tolerated the pomalidomide very poorly due to [employer] side effects. Treatment was then stopped due to evidence of disease progression by PET/CT on 07/12/2020. 3. She began salvage therapy with belantamab mafodotin 08/29/2020. That treatment was interrupted when she was confirmed to have COVID-19 virus infection following the 2nd cycle. It was restarted in December 2020. It was stopped after the 5th cycle, administered on 02/11/2021, due to visual changes. She appeared to have significant response by follow-up PET/CT on 03/15/2021. However, with her persistent visual symptoms, she opted to remain off treatment. During subsequent follow-up she had reported increasing pain in the right shoulder. 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 She was given palliative radiation to the right shoulder, completed on 07/08/2021 to a total dose of 3000 cGy, ministered in 10 fractions. She had some improvement in the pain with the radiation. On 07/25/2021 she began further treatment with carfilzomib/dexamethasone with the carfilzomib administered daily for 2 days on a 3-week out of 4 schedule. She was able to complete one full cycle of treatment, though during that time she complained of increasing fatigue and shortness of breath. She was evaluated with CT pulmonary angiogram, which showed no evidence of pulmonary emboli or other acute pathology. 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 There was no evidence of disease progression. She continued with cycle 2 on 08/21/2021. Echocardiogram at that point showed normal left ventricular function with estimated ejection fraction at 60%. Her treatment was put on hold following the day 8/day 9 carfilzomib infusions. She had subsequently felt better, and as of 09/16/2021 she was able to continue with cycle 3 of carfilzomib/dexamethasone. At that point he carfilzomib was changed to weekly dosing. Her M protein was stable at 0.2 g/dL. With that cycle she was able to complete day 1, day 8, and day 15 treatments. At this point she appears to be tolerating the treatment well. She has noted improvement in some of her symptoms, particularly the fatigue and shortness of breath. She has having increased pain at multiple sites which is worrisome for disease progression. The concern is that her disease is not being accurately reflected by the protein electrophoresis studies or by PET/CT. I will discuss options for further imaging with the radiologist. In the meantime, she will proceed now with cycle 4 of carfilzomib/dexamethasone. The dosages and schedule will remain the same. She will be scheduled for a followup visit in 2 weeks. 2. 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 3. She has had thromboembolism including pulmonary emboli in August 2018 and left upper extremity deep vein thrombosis while on anticoagulation. She continues her anticoagulation with apixaban 5 mg twice daily. Signed By: Ruiz Rodriguez M.D. <<Signature on File>>
== END 2021-10-14 09:06 | disposition home or self-care (01) ==
LOC: ONCMED 09:10
PROVIDERS: PCP Electrodiagnostic Medicine; Visit Provider Internal Medicine Medical Oncology
DX: Z51.11 Encounter for antineoplastic chemotherapy (principal); C90.00 Multiple myeloma not having achieved remission; C90.30 Solitary plasmacytoma not having achieved remission; I10 Essential (primary) hypertension; N80.9 Endometriosis, unspecified; F41.9 Anxiety disorder, unspecified; F32.9 Major depressive disorder, single episode, unspecified; M50.30 Other cervical disc degeneration, unspecified cervical region; M48.02 Spinal stenosis, cervical region; M51.36 Other intervertebral disc degeneration, lumbar region; M48.061 Spinal stenosis, lumbar region without neurogenic claudication; Z86.711 Personal history of pulmonary embolism; Z86.718 Personal history of other venous thrombosis and embolism; Z86.16 Personal history of COVID-19; Z79.899 Other long term (current) drug therapy
CPT/HCPCS: 80053; 81001; 82728; 83540; 83550; 83883; 84155; 84165; 85025; 96361; 96375; 96413; 99215; J1200; J2405; J7040; J7050; J9047

== ENCOUNTER 2021-10-17 13:54 | Outpatient (CLI) | payer MEDICARE, SELFPAY | END 2021-10-17 13:55 | disposition home or self-care (01) | LOC: WOUND 13:55 | PROVIDERS: PCP Electrodiagnostic Medicine; Visit Provider Emergency Medicine | DX: L59.8 Other specified disorders of the skin and subcutaneous tissue related to radiation (principal); Y84.2 Radiological procedure and radiotherapy as the cause of abnormal reaction of the patient, or of later complication, without mention of misadventure at the time of the procedure; Y78.1 Therapeutic (nonsurgical) and rehabilitative radiological devices associated with adverse incidents | CPT/HCPCS: 11042 ==

== ENCOUNTER 2021-10-21 06:42 | Outpatient (CLI) | payer MEDICARE, SELFPAY ==
[2021-10-21 09:50] LABS: Basophils # 0.1 10^3/uL (0.0-0.1); Eosinophils # 0.1 10^3/uL (0.0-0.8); Eosinophils % 1.5 %; Hematocrit 33.6 % (37.0-47.0); Hemoglobin 10.6 g/dL (11.5-15.3); Lymphocytes # 1.8 10^3/uL (0.8-4.8); Lymphocytes % 26.4 %; Mean Corpuscular HGB Conc 31.5 g/dL (30.0-36.0); Mean Corpuscular Hemoglobin 30.8 pg (28.0-34.0); Mean Corpuscular Volume 97.7 fl (81-99); Mean Platelet Volume 11.9 fL (7.4-10.4); Monocytes # 0.7 10^3/uL (0.2-0.9); Monocytes % 10.3 %; Neutrophils # 4.06 10^3/uL (1.8-7.7); Neutrophils % 60.1 %; Nucleated Red Blood Cells % 0 %; Platelet Count 183 10^3/cmm (130-400); Red Blood Count 3.44 10^6/uL (4.1-5.3); Red Cell Distribution Width 14.5 % (12.1-15.1); White Blood Count 6.8 10^3/uL (4.0-10.0)
[2021-10-21] MEDS: sodium chloride 0.9% 250 ML 75 ML IV (13:00)
[2021-10-21] MEDS: famotidine 20 mg/2 mL INJ IVP (13:24)
[2021-10-21] MEDS: sodium chloride 0.9% 500 ML 999 ML IV (14:38)
== END 2021-10-21 06:43 | disposition home or self-care (01) ==
LOC: ONCMED 06:43
PROVIDERS: PCP Electrodiagnostic Medicine; Visit Provider Internal Medicine Medical Oncology
DX: Z51.11 Encounter for antineoplastic chemotherapy (principal); C90.30 Solitary plasmacytoma not having achieved remission; C79.51 Secondary malignant neoplasm of bone; D47.2 Monoclonal gammopathy; E83.51 Hypocalcemia; D50.9 Iron deficiency anemia, unspecified; Z79.899 Other long term (current) drug therapy
CPT/HCPCS: 85025; 96361; 96375; 96413; J3490; J7040; J7050; J9047

== ENCOUNTER 2021-10-28 06:36 | Outpatient (CLI) | payer MEDICARE, SELFPAY ==
[2021-10-28 10:31] LABS: Basophils # 0.1 10^3/uL (0.0-0.1); Eosinophils # 0.1 10^3/uL (0.0-0.8); Eosinophils % 2.2 %; Lymphocytes # 1.3 10^3/uL (0.8-4.8); Lymphocytes % 21.4 %; Mean Corpuscular HGB Conc 32.4 g/dL (30.0-36.0); Mean Corpuscular Hemoglobin 31.4 pg (28.0-34.0); Mean Corpuscular Volume 97.1 fl (81-99); Mean Platelet Volume 11.5 fL (7.4-10.4); Monocytes # 0.6 10^3/uL (0.2-0.9); Monocytes % 10.4 %; Neutrophils # 3.88 10^3/uL (1.8-7.7); Neutrophils % 64.7 %; Nucleated Red Blood Cells % 0 %; Platelet Count 205 10^3/cmm (130-400)
[2021-10-28 10:45] LABS: Alanine Aminotransferase 20 U/L (0-33); Albumin Level 3.6 g/dL (3.5-5.2); Alkaline Phosphatase 86 IU/L (35-105); Anion Gap 15.9 (5-19); Aspartate Amino Transferase 16 U/L (0-32); Blood Urea Nitrogen 11 mg/dL (8-23); Carbon Dioxide 20 mmol/L (22-29); Chloride 108 mmol/L (98-107); Globulin 1.5 g/dL (1.3-4.6); Glomerular Filtration Rate 70.9 mL/min (90-130); Glucose 100 mg/dL (65-115); Osmolality Calculated 289 mOsm/kg (285-295); Potassium 3.9 mmol/L (3.5-5.1); Sodium 140 mmol/L (136-145); Total Bilirubin 0.3 mg/dL (0.15-1.2); Total Protein 5.1 g/dL (6.6-8.7)
--- NOTE | 2021-11-04 09:09 | ONC FU_ITS ---
Dr. Rodriguez Patient Follow-Up Note Patient: Valentin Clark Unit #: [id number]: 1950 Dicatated By: Ruiz Rodriguez M.D.Date of Visit:Oct 28, 2021 Onc Med Follow-up/Prog Note Chief Complaint: Mulitple myeloma. 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 In March 2018 she had bumped her head at work and in the process of that she became aware of a small lump, though it was actually in a slightly different area. She then noticed that the lump was getting larger. Evaluation with head MRI on 06/07/2018 showed evidence of a right parietal occipital extra-axial neoplasm, felt to be most likely meningeal in origin. It was noted to exert mass effect on the right parietal and occipital lobes, but without associated midline shift or white matter parenchymal edema. The lesion was noted to invade through the calvarium and into the subcutaneous parietal occipital scalp soft tissues. The mass measured 5.7 x 3.5 x 6 cm. 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 The area of occlusion was noted to extend over approximately 4.3 cm. She was seen by Dr. Landry and subsequently referred for neurosurgery evaluation at [facility]. Initially they had considered possible surgical resection. Her further evaluation there apparently included laboratory findings which were suspicious for myeloma, and it was recommended that she have treatment with radiation. She was seen here for further management on 07/14/2018. She then returned to Dr. Landry, and on 07/20/2018 she underwent open biopsy/resection of the extracranial extent of the mass. 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 Her further evaluation included protein electrophoresis which showed an IgG lambda monoclonal protein in the serum quantitating at 0.48 g/dL. The serum free light chain assay showed elevated lambda light chain at 374.65 mg/L with decreased kappa/lambda ratio at 0.06. The 24-hour urine protein electrophoresis showed no monoclonal protein. There were no other areas of lytic bone involvement noted on her skeletal survey. Bone marrow aspiration/biopsy on 07/30/2018 showed a monotypic plasma cell population, but it comprised only 2% of the total cellularity. A FISH panel for myeloma was unrevealing, and the standard chromosome analysis was normal. She was referred to Dr. Kaur, and she began radiation to the lesion on 07/30/2018. She completed treatment on 09/02/2018 to a total dose of 5,000 cGy. She had evaluation with CT pulmonary angiogram on 09/14/2018. It showed moderate bilateral pulmonary embolic burden. She began on anticoagulation with apixaban. During her subsequent follow-up she continued to have an open wound at the site of the plasmacytoma in the parietal-occipital scalp region. As of her follow-up visit on 10/19/2018 her M protein was stable 0.37 g/dL. In the absence of any evidence of symptomatic myeloma, she had otherwise just continued on observation/expectant management. However, due to her persistent scalp wound she had a repeat brain MRI on 01/11/2019. It showed evidence of residual neoplastic process at the resection site. There was associated dural involvement but with improved signal characteristics and decreased enhancement compared to the study from September 2018. She had further evaluation with PET/CT on 02/03/2019. It showed increase in size and expansile hypermetabolic lesion within the left ilium with extension of hypermetabolic tumor into the adjacent left iliac muscle. There was a new hypermetabolic lytic process within the right S1/S2 region. A large lytic mass within the posterior calvarium did not appear to have active hypermetabolism. Also noted, though, was a hypermetabolic lesion within the medullary canal of the distal left femoral diametaphysis and an additional hypermetabolic focus in the anterior cortex of the distal right femur concerning for additional areas of myeloma. In the setting of obvious progression of her myeloma, she began treatment with VRd on 02/23/2019. At that time she also received an infusion of IV Zometa for the lytic bone involvement. She experienced multiple toxicities with the VRd regimen, requiring dose reductions and treatment delays. Beginning with cycle 4, and June 2019 the Velcade was dropped from the regimen, and the following month her treatment was put on hold due to multiple toxicities, mainly severe fatigue and excessive somnolence. She was found to have a low B12 level, for which she began on B12 replacement therapy. At her follow-up visit on 11/28/2019 she was still mildly anemic, and transferrin saturation was still low at 17% despite being on oral iron replacement. As such, she was then given parenteral iron replacement with infusions of Injectafer on 11/28/2019 and on 12/05/2019. With the 11/28 visit she also was given denosumab 120 mg by subcutaneous injection for the lytic bone involvement. On 12/06/2019 she was admitted to the hospital with symptomatic hypocalcemia, serum calcium 5.9 mg/dL with albumin 2.9 g/dL. Renal function was stable with creatinine 1.0 mg/dL, but her potassium also was low at 3.2 mmol/L. She was given IV calcium and potassium replacement. She then continued further IV replacement as an outpatient. Despite that she was readmitted to the hospital with hypocalcemia on 12/15/2019. She was discharged home on 12/23/2019. Her evaluation included CT pulmonary angiogram which showed no evidence of pulmonary embolism. There was evidence of cardiomegaly, a small pericardial effusion, and small bilateral pleural effusions. Echocardiogram showed small, hemodynamically insignificant pericardial effusion and normal left ventricular function. She then returned here on 12/27/2019 and she has since then continued IV fluid and electrolyte replacement, daily for the first week and then on Mondays, Wednesdays, and Fridays. Despite that, she continued to feel weak and shaky, and she had ongoing complaints of nausea and anorexia. She continued to require IV fluid and electrolyte replacement but she did show gradual recovery. Her further treatment remained on hold. Repeat protein electrophoresis on 01/16/2020 showed stable M protein at 0.4 g/dL. The serum free light chain assay showed elevated free lambda light chain at 254 mg/L with decreased kappa/lambda ratio at 0.16. There was no monoclonal protein identified in the 24-hour urine protein electrophoresis. Restaging PET/CT on 02/24/2020 showed findings concerning for disease progression with new areas of marrow hypermetabolism within the right proximal humerus and within the bilateral distal femoral diametaphysis. The existing areas of involvement within the left ilium and sacrum showed further decrease in FDG uptake. With those findings, I had recommended that she proceed to second line treatment with daratumumab/dexamethasone. She eventually was able to begin her initial infusion of daratumumab on 03/21/2020. Her repeat free light chain assay prior to that showed further increase in the lambda light chain to 537 mg/L with kappa/lambda ratio 0.06. She tolerated the daratumumab with no adverse effects, and she then continued treatment weekly. On 05/03/2020 she underwent EGD and colonoscopy by Dr. Jimenes. The EGD showed no significant abnormal findings, and the colonoscopy showed just 2 small polyps in the rectum. 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 As of 05/09/2020 she had completed her 8th infusion on the weekly schedule, and as of 05/16/2020 she received her 1st of 8 planned infusions at the 2-week interval. Her M protein at that point was stable at 0.4 g/dL. The free light chain assay showed a decrease in the free lambda light chain from 537.42 205.2 mg/L. However, her repeat head MRI on 06/05/2020 showed significant progression of the myelomatous lesions within the skull compared to the study from January 2020. Numerous calvarial lesions were now present, the largest in the right parietal bone measuring 2.2 cm. The postoperative resection site in the posterior right parietal lobe showed significantly more enhancement with slightly more dural enhancement, also suspicious for progression of neoplastic changes. With that finding, she had continued the daratumumab and dexamethasone, but beginning on 06/27/2020 she added pomalidomide at a reduced dosage of 2 mg daily on a 21/28-day schedule. Her repeat PET/CT on 07/12/2020 showed a large lytic lesion within the posterior right calvarium, but without associated hypermetabolism. There were no new lesions identified within the calvarium. There was persistent hypermetabolism noted within the proximal right humerus, SUV 3.6, and there was new hypermetabolism within the marrow of the proximal left humerus, SUV 3.6. There was decrease in FDG uptake within the medial left ilium. There was persistent hypermetabolism noted in the right femoral diametaphysis and in the distal left femoral diametaphysis. There was new hypermetabolism noted in the proximal left tibia. Overall the findings were concerning for disease progression, and she was recommended to undergo a trial of salvage therapy with belantamab [id number]. Her other medical illnesses include hypertension and degenerative arthritis/degenerative disease of the spine. She has associated cervical and lumbar spinal stenosis. She has a history of endometriosis, and she has anxiety/depression. She is a nonsmoker. INTERIM HISTORY: On 08/29/2020 she began cycle 1 of belantamab [id number]. She tolerated the initial infusion without acute toxicity. She continued with cycle 2 on 09/19/2020. Her further management was then complicated by COVID-19 virus infection and by left upper extremity deep vein thrombosis for which she underwent revascularization of the left innominate vein and manual thrombectomy of the left subclavian vein. She was then able to continue the belantamab-mafodotin at 3-week intervals. As of 02/11/2021 she had completed her 5th cycle. Her further treatment was then put on hold due to visual symptoms, though her repeat eye exam in February had shown only grade 1 changes. Repeat head MRI on 02/26/2021 showed no evidence of recurrent or progressed disease. There is stable enhancement about the resection cavity in the right parieto-occipital area. Multiple enhancing myelomatous lesions involving the underlying calvarium appeared stable. The largest was in the right parietal calvarium measuring 1.8 cm. 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 There was associated encephalomalacia and gliosis. Restaging PET/CT on 03/15/2021 showed a small focus of increased tracer accumulation in the soft tissues/bone marrow of the right posterior skull with maximum SUV 4.70. That area had not been included on the previous study, so it could not be compared. However, the appearance was consistent with residual myeloma. Also noted was stable mild increased metabolic activity in the left proximal humerus with maximum SUV 3.03. There was no focal increase in the right proximal humerus, noted to have resolved compared to the prior study. Also noted was resolution of previously described metabolic increased activity in the left proximal fibula and in both distal femoral metadiaphyses. Overall the study was noted to be significantly improved. As of her follow-up visit on 05/07/2021 she was showing some decline in performance status. She reported having new pain in her back and she reported increased pain in her right shoulder. MRI of the right shoulder on 05/27/2021 showed an enhancing intramedullary lesion centered in the right humeral head measuring 3.5 x 1.9 cm. A smaller adjacent satellite lesion was noted to extend towards the greater tuberosity. The findings were most consistent with metastatic sites from the myeloma. She was seen by Dr. Bah for palliative radiation. She had had further evaluation with MRI of the left shoulder which showed an intramedullary T2 hyperintense enhancing lesion in the left humeral head measuring 2.6 x 2.1 x 4.1 cm. With those findings, she underwent palliative radiation to the right shoulder. Treatment was completed on 07/08/2021 to a total dose of 3000 cGy administered in 10 fractions. Repeat head MRI on 07/24/2021 showed stable postoperative findings associated with the previous right parietal occipital craniectomy. Enhancing myelomatous calvarial lesions, the largest in the right parietal calvarium measuring 1.8 cm, also appeared stable. There was no evidence for recurrent or progressed parenchymal disease. There was evidence for chronic infarcts in the left cerebellum with associated encephalomalacia and gliosis. With evidence of disease progression she then began further treatment with carfilzomib/dexamethasone with the carfilzomib administered on a standard day 1/2, day 8/9, and day 15/16 schedule to minimize the risk of toxicity. Her baseline echocardiogram showed adequate LV function with estimated ejection fraction at 60%. At day 8 she reported increased shortness of breath. A CT pulmonary angiogram showed no evidence of pulmonary emboli or other acute pathology. She was able to complete that cycle of treatment. Restaging PET/CT on 08/16/2021 showed stable left proximal humerus bone mineral tumor involvement. There was improvement in the appearance of the right posterior calvarial lesion with SUV activity consistent with inflammatory changes. There was no evidence for disease progression. She then continued with cycle 2 on 08/21/2021. Her echocardiogram at that time showed normal left ventricular systolic function with ejection fraction estimated at 60%. At cycle 2-day 8 she was reporting fatigue and shortness of breath, but she was able to continue her treatment. Her further treatment was then put on hold, as her symptoms continued to worsen. During subsequent follow-up, she was feeling better, and she was able to continue with cycle 3 on 09/16/2021. Her protein electrophoresis at that point showed her M protein stable at 0.2 g/dL. With that cycle, she was able to complete day 1, day 8, and day 15 treatments. On 10/14/2021 she began her 4th cycle of treatment. Her protein electrophoresis at that point showed M protein decreased to 0.1 g/dL. Her serum free light chain assay showed a free kappa light chain of 15.2 mg/L, free lambda light chain 26.0 mg/L, and normal kappa/lambda ratio 0.58. She is seen for a follow-up visit. She is now at day 15 of her 4th cycle of carfilzomib/dexamethasone. For the past couple weeks she has not been feeling is good. She has had some decline in activity tolerance, though she is still able to do some light work. ECOG score is 1. Her appetite is not good, but she is eating. She does not have fever or night sweats. Her main complaint has had her pain is been getting worse, mainly in the right upper arm/right shoulder area and in the lower right rib area. She has some pain on the right side of her back which radiates around to the flank area and she has pain in the mid to lower back. She has not had sore mouth or throat. She has a little bit of cough and she sometimes has shortness of breath. She has occasional episodes of heart racing. She has been having waves of queasiness. Her acid reflux is getting better on medication, though she still has some discomfort in her substernal/epigastric area. Her diarrhea is getting worse, and she is mostly having watery stools now. She has urinary frequency with some bladder leakage. She has been having some headaches she has been having ongoing problems with her balance. She has no numbness/paresthesia or other focal neurologic symptoms. Medications: Albuterol Sulfate HFA Aerosol, solution Inhalation PRN, Arthritis Pain Reliever 2 Gm/60mL (of 1 %) Gel (jelly) Topical PRN, Aspirin 1 Tablet (of 81 mg) Tablet, chewable Oral daily, B-12 Dots 1 Tablet (of 500 mcg) Tablet Dispersable Oral daily, Claritin 1 Capsule (of 10 mg) Oral daily PRN, Eliquis 1 Tablet (of 5 mg) Oral b.i.d., FLUoxetine HCl 1 Tablet (of 10 mg) Oral daily, FLUoxetine HCl 1 Capsule (of 20 mg) Oral daily, hydrALAZINE HCl 1 Tablet (of 25 mg) Oral b.i.d., HYDROcodone-Acetaminophen 1 - 2 Tablet (of 5-325 mg) Oral q 4 to 6 hours PRN, Lasix 1 - 2 Tablet (of 40 mg) Oral PRN, LORazepam 1 Tablet (of 0.5 mg) Oral b.i.d. PRN, Mupirocin (2 %) Ointment Topical Take as Directed, Probiotic Capsule Oral b.i.d., RA Senna 1 Capsule (of 8.6 mg) Oral daily PRN, Vitamin D3 Super Strength 1 Capsule (of 50 mcg ) Oral b.i.d. Allergies: BusPIRone HCl, Codeine and Related, Levaquin, and Morphine Derivatives. Vital Signs: Performed on Oct 28, 2021 11:31 Height - 63.50 in Weight - 202.6 lbs (HIGH) BSA - 1.96 sq.m BMI - 35.33 (HIGH) Temperature - 97.8 F (LOW) Pulse - 63 /min Respiration - 16 /min BP - 173/80 mm(hg) (HIGH) O2 Sat - 96 % Pain - 6 Fatigue - 9 Physical Examination: Constitutional - She appears somewhat weak generally, Eyes - Sclerae nonicteric. Conjunctivae clear, ENMT - No lesions noted in the oral cavity, Hematologic/Lymphatic - No cervical, clavicular, or axillary adenopathy, Respiratory - Lungs sound clear, Cardiovascular - Heart rhythm is regular. There is a II/ systolic murmur. There is no gallop or rub noted, Abdomen - Soft. Liver and spleen are not enlarged. There is no abdominal mass or ascites noted and there is no inguinal adenopathy, Extremities - No edema, Neurologic - No focal neurologic deficits noted. Lab/Imaging: Test performed on Oct 28, 2021 10:15 Sodium 140 mmol/L Potassium 3.9 mmol/L Chloride 108 mmol/L CO2 20 mmol/L Anion Gap 15.9 BUN 11 mg/dL Creatinine 0.8 mg/dL Cr Clearance (Est) 96.3400 mL/min eGFR 70.9 mL/min Glucose 100 mg/dL Osmolality - Calculated 289 mOsm/kg Calcium 8.0 mg/dL Protein, Total 5.1 g/dL Albumin 3.6 g/dL Globulin 1.5 g/dL Bilirubin, Total 0.3 mg/dL ALT (SGPT) 20 U/L AST (SGOT) 16 U/L Alkaline Phosphatase 86 IU/L WBC 6.0 10 3/uL RBC 3.50 10 6/uL HGB 11.0 g/dL HCT 34.0 % MCV 97.1 fl MCH 31.4 pg MCHC 32.4 g/dL RDW 15.0 % Platelet Count 205 10 3/cmm MPV 11.5 fL Neutrophils 3.88 10 3/uL Lymphocytes 1.3 10 3/uL Monocytes 0.6 10 3/uL Eosinophils 0.1 10 3/uL Basophils 0.1 10 3/uL Neutrophil % 64.7 % Lymphocyte % 21.4 % Monocyte % 10.4 % Eosinophil % 2.2 % Basophils % 1.0 % NRBC % 0 % Problem List: 1. IgG lambda myeloma presenting with plasmacytoma involving the right parietal-occipital extra-axial space. She underwent resection/open biopsy of the extracranial portion of the mass on 07/20/2018. 2. She has persistent open wound at the biopsy site. 3. She has had thromboembolism with pulmonary emboli documented by CT pulmonary angiogram on 09/14/2018. She developed left upper extremity deep vein thrombosis in October 2020 in association with COVID-19 virus infection. She required hospitalization in November 2020 for revascularization of the left innominate vein and manual thrombectomy of the left subclavian vein. 4. Degenerative arthritis and degenerative disease of the spine with associated cervical and lumbar spinal stenosis. 5. Hypertension. 6. Endometriosis. 7. Anxiety/depression. Problems Addressed with this Encounter and Plan: 1. Patient with IgG lambda myeloma presenting with plasmacytoma involving the right parietal-occipital extra-axial space. She underwent resection/open biopsy of the extracranial portion of the mass on 07/20/2018. She then underwent radiation, completed on 09/02/2018 to a total dose of 5000 cGy. She had associated IgG lambda monoclonal protein in the serum and 2% monoclonal plasma cells in the bone marrow, consistent with underlying myeloma. Initially it appeared to otherwise not be symptomatic, and she was followed expectantly following completion of the radiation. By January 2019 she had developed increasing pain in the left hip/buttock area. Her repeat protein electrophoresis studies showed only a slight increase in her M protein, but her repeat PET/CT on 02/03/2019 showed significant progression of lytic bone involvement in the left ilium. There was also possible involvement in the distal right femur. The area of lytic involvement in the calvarium was not metabolically active. Her subsequent myeloma therapies included: 1. Velcade/Revlimid/dexamethasone beginning 02/23/2019. She had multiple toxicities, requiring dose reductions and treatment delays. As of July 2019 she was transitioned to maintenance Revlimid at 5 mg daily. 2. Second line treatment with daratumumab/dexamethasone began 03/21/2020. As of 06/27/2020 pomalidomide was added at a reduced dosage. 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 Treatment was then stopped due to evidence of disease progression by PET/CT on 07/12/2020. 3. She began salvage therapy with belantamab mafodotin 08/29/2020. That treatment was interrupted when she was confirmed to have COVID-19 virus infection following the 2nd cycle. It was restarted in December 2020. It was stopped after the 5th cycle, administered on 02/11/2021, due to visual changes. She appeared to have significant response by follow-up PET/CT on 03/15/2021. However, with her persistent visual symptoms, she opted to remain off treatment. During subsequent follow-up she had reported increasing pain in the right shoulder. 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 She was given palliative radiation to the right shoulder, completed on 07/08/2021 to a total dose of 3000 cGy, ministered in 10 fractions. She had some improvement in the pain with the radiation. On 07/25/2021 she began further treatment with carfilzomib/dexamethasone with the carfilzomib administered daily for 2 days on a 3-week out of 4 schedule. She was able to complete one full cycle of treatment, though during that time she complained of increasing fatigue and shortness of breath. She was evaluated with CT pulmonary angiogram, which showed no evidence of pulmonary emboli or other acute pathology. 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 There was no evidence of disease progression. She continued with cycle 2 on 08/21/2021. Echocardiogram at that point showed normal left ventricular function with estimated ejection fraction at 60%. Her treatment was put on hold following the day 8/day 9 carfilzomib infusions. She had subsequently felt better, and as of 09/16/2021 she was able to continue with cycle 3 of carfilzomib/dexamethasone. At that point he carfilzomib was changed to weekly dosing. Her M protein was stable at 0.2 g/dL. With that cycle she was able to complete day 1, day 8, and day 15 treatments. She began cycle 4 of carfilzomib/dexamethasone 10/14/2021. At that point her M protein decreased to 0.1 g/dL, and her serum free light chain assay showed kappa/lambda ratio in normal range. She is now at day 15 of cycle 4. She appears to be tolerating treatment well, but she is having worsening pain and some decline in performance status. Overall, her symptoms are worrisome for progression of the myeloma, and I am suspicious that the protein electrophoresis studies and PET/CT are not accurately reflecting the status of her disease. I have been in discussions with Dr. Silva regarding options for her further imaging, and those will be completed prior to her next scheduled visit, which will be in 2 weeks. In the meantime, as her diarrhea appears to be getting worse, I will have her bring in a stool sample for culture and to check for C. difficile. 2. 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 3. She has had thromboembolism including pulmonary emboli in August 2018 and left upper extremity deep vein thrombosis while on anticoagulation. She continues her anticoagulation with apixaban 5 mg twice daily. Signed By: Ruiz Rodriguez M.D. <<Signature on File>>
== END 2021-10-28 06:37 | disposition home or self-care (01) ==
PROVIDERS: PCP Electrodiagnostic Medicine; Visit Provider Internal Medicine Medical Oncology
DX: C90.30 Solitary plasmacytoma not having achieved remission (principal); C79.51 Secondary malignant neoplasm of bone; Z86.711 Personal history of pulmonary embolism; Z79.01 Long term (current) use of anticoagulants; M50.30 Other cervical disc degeneration, unspecified cervical region; M48.02 Spinal stenosis, cervical region; M51.36 Other intervertebral disc degeneration, lumbar region; M48.061 Spinal stenosis, lumbar region without neurogenic claudication; I10 Essential (primary) hypertension; N80.9 Endometriosis, unspecified; F41.9 Anxiety disorder, unspecified; F32.9 Major depressive disorder, single episode, unspecified; Z79.899 Other long term (current) drug therapy; Z92.21 Personal history of antineoplastic chemotherapy; Z92.3 Personal history of irradiation
CPT/HCPCS: 80053; 85025; 96361; 96413; 99215

== ENCOUNTER 2021-11-04 14:00 | Outpatient (CLI) | payer MEDICARE, SELFPAY | END 2021-11-04 14:01 | disposition home or self-care (01) | LOC: WOUND 14:01 | PROVIDERS: PCP Electrodiagnostic Medicine; Visit Provider Nurse Practitioner Family | DX: L59.8 Other specified disorders of the skin and subcutaneous tissue related to radiation (principal); Y84.2 Radiological procedure and radiotherapy as the cause of abnormal reaction of the patient, or of later complication, without mention of misadventure at the time of the procedure; Y78.1 Therapeutic (nonsurgical) and rehabilitative radiological devices associated with adverse incidents | CPT/HCPCS: 11042 ==

== ENCOUNTER 2021-11-11 06:39 | Outpatient (CLI) | payer MEDICARE, SELFPAY ==
[2021-11-11 10:22] LABS: Basophils # 0.1 10^3/uL (0.0-0.1); Basophils % 2.4 %; Eosinophils # 0.1 10^3/uL (0.0-0.8); Eosinophils % 2.2 %; Hematocrit 34.3 % (37.0-47.0); Lymphocytes # 1.5 10^3/uL (0.8-4.8); Lymphocytes % 32.1 %; Mean Corpuscular HGB Conc 32.1 g/dL (30.0-36.0); Mean Corpuscular Hemoglobin 31.9 pg (28.0-34.0); Mean Corpuscular Volume 99.4 fl (81-99); Mean Platelet Volume 11.3 fL (7.4-10.4); Monocytes # 0.6 10^3/uL (0.2-0.9); Monocytes % 12.1 %; Neutrophils # 2.32 10^3/uL (1.8-7.7); Nucleated Red Blood Cells % 0 %; Platelet Count 274 10^3/cmm (130-400); Red Blood Count 3.45 10^6/uL (4.1-5.3); Red Cell Distribution Width 13.9 % (12.1-15.1); White Blood Count 4.6 10^3/uL (4.0-10.0)
[2021-11-11 10:42] LABS: Alanine Aminotransferase 14 U/L (0-33); Albumin Level 3.5 g/dL (3.5-5.2); Alkaline Phosphatase 71 IU/L (35-105); Anion Gap 14.2 (5-19); Aspartate Amino Transferase 15 U/L (0-32); Blood Urea Nitrogen 9 mg/dL (8-23); Calcium 7.8 mg/dL (8.5-10.5); Carbon Dioxide 23 mmol/L (22-29); Chloride 110 mmol/L (98-107); Globulin 1.6 g/dL (1.3-4.6); Glomerular Filtration Rate 70.9 mL/min (90-130); Glucose 86 mg/dL (65-115); Osmolality Calculated 294 mOsm/kg (285-295); Potassium 4.2 mmol/L (3.5-5.1); Sodium 143 mmol/L (136-145); Total Bilirubin 0.3 mg/dL (0.15-1.2); Total Protein 5.1 g/dL (6.6-8.7)
[2021-11-11 10:59] LABS: Immunoglobulin IGA 15 mg/dL (70-400); Immunoglobulin IGG 270 mg/dL (700-1600); Immunoglobulin IGM 6 mg/dL (40-230)
[2021-11-11] MEDS: acetaminophen 325 mg Tablet 650 MG PO (11:46)
[2021-11-11] MEDS: diphenhydrAMINE 50 mg/mL SDV 1mL 25 MG IV (11:46)
[2021-11-11] MEDS: ondansetron 2 mg/ML SDV 2 mL 8 MG IV (11:48)
[2021-11-11] MEDS: sodium chloride 0.9% 500 ML 999 ML IV ×2 (11:51→13:15)
[2021-11-12 06:59] LABS: PROTEIN, TOTAL 4.8 g/dL (6.1-8.1)
[2021-11-12 12:16] LABS: KAPPA LIGHT CHAIN, FREE, SERUM 11.7 mg/L (3.3-19.4)
[2021-11-12 14:22] LABS: ABNORMAL PROTEIN BAND 1 0.1 g/dL (NONE DETECTED); ALBUMIN 3.2 g/dL (3.8-4.8); ALPHA 1 GLOBULIN 0.2 g/dL (0.2-0.3); ALPHA 2 GLOBULIN 0.6 g/dL (0.5-0.9); BETA 1 GLOBULIN 0.4 g/dL (0.4-0.6); BETA 2 GLOBULIN 0.2 g/dL (0.2-0.5); GAMMA GLOBULIN 0.3 g/dL (0.8-1.7)
== END 2021-11-11 06:40 | disposition home or self-care (01) ==
LOC: ONCMED 06:39
PROVIDERS: Internal Medicine Medical Oncology; PCP Electrodiagnostic Medicine; Visit Provider Nurse Practitioner Family
DX: Z51.11 Encounter for antineoplastic chemotherapy (principal); C90.30 Solitary plasmacytoma not having achieved remission; M50.30 Other cervical disc degeneration, unspecified cervical region; M48.02 Spinal stenosis, cervical region; M51.36 Other intervertebral disc degeneration, lumbar region; M48.061 Spinal stenosis, lumbar region without neurogenic claudication; I10 Essential (primary) hypertension; N80.9 Endometriosis, unspecified; F41.9 Anxiety disorder, unspecified; F32.9 Major depressive disorder, single episode, unspecified; T14.8XXA Other injury of unspecified body region, initial encounter; Z86.711 Personal history of pulmonary embolism; Z86.718 Personal history of other venous thrombosis and embolism; Z79.899 Other long term (current) drug therapy
CPT/HCPCS: 80053; 82784; 83883; 84155; 84165; 85025; 96361; 96375; 96413; 99215; J1200; J2405; J7040; J9047

== ENCOUNTER → 2021-11-14 13:58 | Outpatient (BNVA) | payer MEDICARE, SELFPAY | PROVIDERS: PCP Electrodiagnostic Medicine; Visit Provider Nurse Practitioner Family | DX: C90.00 Multiple myeloma not having achieved remission (principal); Z20.822 Contact with and (suspected) exposure to COVID-19 | CPT/HCPCS: 87635 ==

== ENCOUNTER 2021-11-18 10:55 | Outpatient (CLI) | payer MEDICARE, SELFPAY ==
[2021-11-18 11:30] LABS: Basophils # 0.1 10^3/uL (0.0-0.1); Basophils % 1.7 %; Eosinophils # 0.2 10^3/uL (0.0-0.8); Eosinophils % 2.9 %; Hematocrit 36.9 % (37.0-47.0); Lymphocytes # 1.6 10^3/uL (0.8-4.8); Lymphocytes % 24.7 %; Mean Corpuscular HGB Conc 32.5 g/dL (30.0-36.0); Mean Corpuscular Hemoglobin 31.7 pg (28.0-34.0); Mean Corpuscular Volume 97.4 fl (81-99); Mean Platelet Volume 11.8 fL (7.4-10.4); Monocytes # 0.9 10^3/uL (0.2-0.9); Monocytes % 13.3 %; Neutrophils % 57.2 %; Nucleated Red Blood Cells % 0 %; Platelet Count 176 10^3/cmm (130-400); Red Blood Count 3.79 10^6/uL (4.1-5.3); Red Cell Distribution Width 13.5 % (12.1-15.1); White Blood Count 6.6 10^3/uL (4.0-10.0)
[2021-11-18 11:46] LABS: Alanine Aminotransferase 20 U/L (0-33); Albumin Level 3.6 g/dL (3.5-5.2); Alkaline Phosphatase 82 IU/L (35-105); Anion Gap 14.8 (5-19); Aspartate Amino Transferase 20 U/L (0-32); Blood Urea Nitrogen 15 mg/dL (8-23); Calcium 8.6 mg/dL (8.5-10.5); Carbon Dioxide 23 mmol/L (22-29); Chloride 103 mmol/L (98-107); Glomerular Filtration Rate 61.9 mL/min (90-130); Glucose 88 mg/dL (65-115); Osmolality Calculated 284 mOsm/kg (285-295); Potassium 3.8 mmol/L (3.5-5.1); Sodium 137 mmol/L (136-145); Total Bilirubin 0.3 mg/dL (0.15-1.2); Total Protein 5.6 g/dL (6.6-8.7)
[2021-11-18] MEDS: famotidine 20 mg/2 mL INJ IVP (12:55)
[2021-11-18] MEDS: ondansetron 2 mg/ML SDV 2 mL 8 MG IV (13:00)
[2021-11-18] MEDS: acetaminophen 325 mg Tablet 650 MG PO (13:00)
[2021-11-18] MEDS: diphenhydrAMINE 50 mg/mL SDV 1mL 25 MG IV (13:06)
[2021-11-18] MEDS: sodium chloride 0.9% 500 ML IV (13:25)
== END 2021-11-18 10:56 | disposition home or self-care (01) ==
LOC: ONCMED 10:58
PROVIDERS: Internal Medicine Medical Oncology; PCP Electrodiagnostic Medicine; Visit Provider Nurse Practitioner Family
DX: Z51.11 Encounter for antineoplastic chemotherapy (principal); C90.00 Multiple myeloma not having achieved remission; C79.51 Secondary malignant neoplasm of bone; D50.9 Iron deficiency anemia, unspecified; E83.51 Hypocalcemia; D47.2 Monoclonal gammopathy; Z79.899 Other long term (current) drug therapy
CPT/HCPCS: 80053; 85025; 96361; 96375; 96413; J1200; J2405; J3490; J7040; J9047

== ENCOUNTER 2021-11-26 13:48 | Outpatient (CLI) | payer MEDICARE, SELFPAY | END 2021-11-26 13:49 | disposition home or self-care (01) | LOC: WOUND 13:53 | PROVIDERS: PCP Electrodiagnostic Medicine; Visit Provider Emergency Medicine | DX: I96 Gangrene, not elsewhere classified (principal); L59.8 Other specified disorders of the skin and subcutaneous tissue related to radiation; Y84.2 Radiological procedure and radiotherapy as the cause of abnormal reaction of the patient, or of later complication, without mention of misadventure at the time of the procedure; Y78.1 Therapeutic (nonsurgical) and rehabilitative radiological devices associated with adverse incidents | CPT/HCPCS: 11042; 99213 ==

== ENCOUNTER 2021-12-09 08:17 | Outpatient (CLI) | payer MEDICARE, SELFPAY ==
[2021-12-09 08:53] LABS: Basophils # 0.1 10^3/uL (0.0-0.1); Basophils % 2.5 %; Eosinophils # 0.1 10^3/uL (0.0-0.8); Eosinophils % 2.5 %; Hematocrit 36.9 % (37.0-47.0); Hemoglobin 11.9 g/dL (11.5-15.3); Lymphocytes # 1.6 10^3/uL (0.8-4.8); Lymphocytes % 33.9 %; Mean Corpuscular HGB Conc 32.2 g/dL (30.0-36.0); Mean Corpuscular Hemoglobin 31.5 pg (28.0-34.0); Mean Corpuscular Volume 97.6 fl (81-99); Mean Platelet Volume 11.2 fL (7.4-10.4); Monocytes # 0.7 10^3/uL (0.2-0.9); Monocytes % 13.8 %; Neutrophils # 2.24 10^3/uL (1.8-7.7); Neutrophils % 46.9 %; Nucleated Red Blood Cells % 0 %; Platelet Count 247 10^3/cmm (130-400); Red Blood Count 3.78 10^6/uL (4.1-5.3); Red Cell Distribution Width 13.1 % (12.1-15.1); White Blood Count 4.8 10^3/uL (4.0-10.0)
[2021-12-09 09:21] LABS: Alanine Aminotransferase 20 U/L (0-33); Albumin Level 3.6 g/dL (3.5-5.2); Alkaline Phosphatase 71 IU/L (35-105); Anion Gap 15.7 (5-19); Aspartate Amino Transferase 24 U/L (0-32); Blood Urea Nitrogen 15 mg/dL (8-23); Calcium 9.3 mg/dL (8.5-10.5); Carbon Dioxide 23 mmol/L (22-29); Chloride 106 mmol/L (98-107); Globulin 1.6 g/dL (1.3-4.6); Glomerular Filtration Rate 82.7 mL/min (90-130); Glucose 88 mg/dL (65-115); Osmolality Calculated 290 mOsm/kg (285-295); Potassium 4.7 mmol/L (3.5-5.1); Sodium 140 mmol/L (136-145); Total Bilirubin 0.3 mg/dL (0.15-1.2); Total Protein 5.2 g/dL (6.6-8.7)
[2021-12-09 10:00] LABS: Immunoglobulin IGG 277 mg/dL (700-1600); Immunoglobulin IGM 6 mg/dL (40-230)
[2021-12-09 10:01] LABS: Immunoglobulin IGA 19 mg/dL (70-400)
[2021-12-09] MEDS: sodium chloride 0.9% 500 ML 999 ML IV (11:45)
--- NOTE | 2021-12-10 08:06 | ONC FU_ITS ---
Dr. Rodriguez Patient Follow-Up Note Patient: Valentin Clark Unit #: [id number]: 1950 Dicatated By: Ruiz Rodriguez M.D.Date of Visit:Dec 09, 2021 Onc Med Follow-up/Prog Note Chief Complaint: Mulitple myeloma. 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 In March 2018 she had bumped her head at work and in the process of that she became aware of a small lump, though it was actually in a slightly different area. She then noticed that the lump was getting larger. Evaluation with head MRI on 06/07/2018 showed evidence of a right parietal occipital extra-axial neoplasm, felt to be most likely meningeal in origin. It was noted to exert mass effect on the right parietal and occipital lobes, but without associated midline shift or white matter parenchymal edema. The lesion was noted to invade through the calvarium and into the subcutaneous parietal occipital scalp soft tissues. The mass measured 5.7 x 3.5 x 6 cm. 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 The area of occlusion was noted to extend over approximately 4.3 cm. She was seen by Dr. Landry and subsequently referred for neurosurgery evaluation at [facility]. Initially they had considered possible surgical resection. Her further evaluation there apparently included laboratory findings which were suspicious for myeloma, and it was recommended that she have treatment with radiation. She was seen here for further management on 07/14/2018. She then returned to Dr. Landry, and on 07/20/2018 she underwent open biopsy/resection of the extracranial extent of the mass. 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 Her further evaluation included protein electrophoresis which showed an IgG lambda monoclonal protein in the serum quantitating at 0.48 g/dL. The serum free light chain assay showed elevated lambda light chain at 374.65 mg/L with decreased kappa/lambda ratio at 0.06. The 24-hour urine protein electrophoresis showed no monoclonal protein. There were no other areas of lytic bone involvement noted on her skeletal survey. Bone marrow aspiration/biopsy on 07/30/2018 showed a monotypic plasma cell population, but it comprised only 2% of the total cellularity. A FISH panel for myeloma was unrevealing, and the standard chromosome analysis was normal. She was referred to Dr. Kaur, and she began radiation to the lesion on 07/30/2018. She completed treatment on 09/02/2018 to a total dose of 5,000 cGy. She had evaluation with CT pulmonary angiogram on 09/14/2018. It showed moderate bilateral pulmonary embolic burden. She began on anticoagulation with apixaban. During her subsequent follow-up she continued to have an open wound at the site of the plasmacytoma in the parietal-occipital scalp region. As of her follow-up visit on 10/19/2018 her M protein was stable 0.37 g/dL. In the absence of any evidence of symptomatic myeloma, she had otherwise just continued on observation/expectant management. However, due to her persistent scalp wound she had a repeat brain MRI on 01/11/2019. It showed evidence of residual neoplastic process at the resection site. There was associated dural involvement but with improved signal characteristics and decreased enhancement compared to the study from September 2018. She had further evaluation with PET/CT on 02/03/2019. It showed increase in size and expansile hypermetabolic lesion within the left ilium with extension of hypermetabolic tumor into the adjacent left iliac muscle. There was a new hypermetabolic lytic process within the right S1/S2 region. A large lytic mass within the posterior calvarium did not appear to have active hypermetabolism. Also noted, though, was a hypermetabolic lesion within the medullary canal of the distal left femoral diametaphysis and an additional hypermetabolic focus in the anterior cortex of the distal right femur concerning for additional areas of myeloma. In the setting of obvious progression of her myeloma, she began treatment with VRd on 02/23/2019. At that time she also received an infusion of IV Zometa for the lytic bone involvement. She experienced multiple toxicities with the VRd regimen, requiring dose reductions and treatment delays. Beginning with cycle 4, and June 2019 the Velcade was dropped from the regimen, and the following month her treatment was put on hold due to multiple toxicities, mainly severe fatigue and excessive somnolence. She was found to have a low B12 level, for which she began on B12 replacement therapy. At her follow-up visit on 11/28/2019 she was still mildly anemic, and transferrin saturation was still low at 17% despite being on oral iron replacement. As such, she was then given parenteral iron replacement with infusions of Injectafer on 11/28/2019 and on 12/05/2019. With the 11/28 visit she also was given denosumab 120 mg by subcutaneous injection for the lytic bone involvement. On 12/06/2019 she was admitted to the hospital with symptomatic hypocalcemia, serum calcium 5.9 mg/dL with albumin 2.9 g/dL. Renal function was stable with creatinine 1.0 mg/dL, but her potassium also was low at 3.2 mmol/L. She was given IV calcium and potassium replacement. She then continued further IV replacement as an outpatient. Despite that she was readmitted to the hospital with hypocalcemia on 12/15/2019. She was discharged home on 12/23/2019. Her evaluation included CT pulmonary angiogram which showed no evidence of pulmonary embolism. There was evidence of cardiomegaly, a small pericardial effusion, and small bilateral pleural effusions. Echocardiogram showed small, hemodynamically insignificant pericardial effusion and normal left ventricular function. She then returned here on 12/27/2019 and she has since then continued IV fluid and electrolyte replacement, daily for the first week and then on Mondays, Wednesdays, and Fridays. Despite that, she continued to feel weak and shaky, and she had ongoing complaints of nausea and anorexia. She continued to require IV fluid and electrolyte replacement but she did show gradual recovery. Her further treatment remained on hold. Repeat protein electrophoresis on 01/16/2020 showed stable M protein at 0.4 g/dL. The serum free light chain assay showed elevated free lambda light chain at 254 mg/L with decreased kappa/lambda ratio at 0.16. There was no monoclonal protein identified in the 24-hour urine protein electrophoresis. Restaging PET/CT on 02/24/2020 showed findings concerning for disease progression with new areas of marrow hypermetabolism within the right proximal humerus and within the bilateral distal femoral diametaphysis. The existing areas of involvement within the left ilium and sacrum showed further decrease in FDG uptake. With those findings, I had recommended that she proceed to second line treatment with daratumumab/dexamethasone. She eventually was able to begin her initial infusion of daratumumab on 03/21/2020. Her repeat free light chain assay prior to that showed further increase in the lambda light chain to 537 mg/L with kappa/lambda ratio 0.06. She tolerated the daratumumab with no adverse effects, and she then continued treatment weekly. On 05/03/2020 she underwent EGD and colonoscopy by Dr. Jimenes. The EGD showed no significant abnormal findings, and the colonoscopy showed just 2 small polyps in the rectum. 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 As of 05/09/2020 she had completed her 8th infusion on the weekly schedule, and as of 05/16/2020 she received her 1st of 8 planned infusions at the 2-week interval. Her M protein at that point was stable at 0.4 g/dL. The free light chain assay showed a decrease in the free lambda light chain from 537.42 205.2 mg/L. However, her repeat head MRI on 06/05/2020 showed significant progression of the myelomatous lesions within the skull compared to the study from January 2020. Numerous calvarial lesions were now present, the largest in the right parietal bone measuring 2.2 cm. The postoperative resection site in the posterior right parietal lobe showed significantly more enhancement with slightly more dural enhancement, also suspicious for progression of neoplastic changes. With that finding, she had continued the daratumumab and dexamethasone, but beginning on 06/27/2020 she added pomalidomide at a reduced dosage of 2 mg daily on a 21/28-day schedule. Her repeat PET/CT on 07/12/2020 showed a large lytic lesion within the posterior right calvarium, but without associated hypermetabolism. There were no new lesions identified within the calvarium. There was persistent hypermetabolism noted within the proximal right humerus, SUV 3.6, and there was new hypermetabolism within the marrow of the proximal left humerus, SUV 3.6. There was decrease in FDG uptake within the medial left ilium. There was persistent hypermetabolism noted in the right femoral diametaphysis and in the distal left femoral diametaphysis. There was new hypermetabolism noted in the proximal left tibia. Overall the findings were concerning for disease progression, and she was recommended to undergo a trial of salvage therapy with belantamab [id number]. Her other medical illnesses include hypertension and degenerative arthritis/degenerative disease of the spine. She has associated cervical and lumbar spinal stenosis. She has a history of endometriosis, and she has anxiety/depression. She is a nonsmoker. INTERIM HISTORY: On 08/29/2020 she began cycle 1 of belantamab [id number]. She tolerated the initial infusion without acute toxicity. She continued with cycle 2 on 09/19/2020. Her further management was then complicated by COVID-19 virus infection and by left upper extremity deep vein thrombosis for which she underwent revascularization of the left innominate vein and manual thrombectomy of the left subclavian vein. She was then able to continue the belantamab-mafodotin at 3-week intervals. As of 02/11/2021 she had completed her 5th cycle. Her further treatment was then put on hold due to visual symptoms, though her repeat eye exam in February had shown only grade 1 changes. Repeat head MRI on 02/26/2021 showed no evidence of recurrent or progressed disease. There is stable enhancement about the resection cavity in the right parieto-occipital area. Multiple enhancing myelomatous lesions involving the underlying calvarium appeared stable. The largest was in the right parietal calvarium measuring 1.8 cm. 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 There was associated encephalomalacia and gliosis. Restaging PET/CT on 03/15/2021 showed a small focus of increased tracer accumulation in the soft tissues/bone marrow of the right posterior skull with maximum SUV 4.70. That area had not been included on the previous study, so it could not be compared. However, the appearance was consistent with residual myeloma. Also noted was stable mild increased metabolic activity in the left proximal humerus with maximum SUV 3.03. There was no focal increase in the right proximal humerus, noted to have resolved compared to the prior study. Also noted was resolution of previously described metabolic increased activity in the left proximal fibula and in both distal femoral metadiaphyses. Overall the study was noted to be significantly improved. As of her follow-up visit on 05/07/2021 she was showing some decline in performance status. She reported having new pain in her back and she reported increased pain in her right shoulder. MRI of the right shoulder on 05/27/2021 showed an enhancing intramedullary lesion centered in the right humeral head measuring 3.5 x 1.9 cm. A smaller adjacent satellite lesion was noted to extend towards the greater tuberosity. The findings were most consistent with metastatic sites from the myeloma. She was seen by Dr. Bah for palliative radiation. She had had further evaluation with MRI of the left shoulder which showed an intramedullary T2 hyperintense enhancing lesion in the left humeral head measuring 2.6 x 2.1 x 4.1 cm. With those findings, she underwent palliative radiation to the right shoulder. Treatment was completed on 07/08/2021 to a total dose of 3000 cGy administered in 10 fractions. Repeat head MRI on 07/24/2021 showed stable postoperative findings associated with the previous right parietal occipital craniectomy. Enhancing myelomatous calvarial lesions, the largest in the right parietal calvarium measuring 1.8 cm, also appeared stable. There was no evidence for recurrent or progressed parenchymal disease. There was evidence for chronic infarcts in the left cerebellum with associated encephalomalacia and gliosis. With evidence of disease progression she then began further treatment with carfilzomib/dexamethasone with the carfilzomib administered on a standard day 1/2, day 8/9, and day 15/16 schedule to minimize the risk of toxicity. Her baseline echocardiogram showed adequate LV function with estimated ejection fraction at 60%. At day 8 she reported increased shortness of breath. A CT pulmonary angiogram showed no evidence of pulmonary emboli or other acute pathology. She was able to complete that cycle of treatment. Restaging PET/CT on 08/16/2021 showed stable left proximal humerus bone mineral tumor involvement. There was improvement in the appearance of the right posterior calvarial lesion with SUV activity consistent with inflammatory changes. There was no evidence for disease progression. She then continued with cycle 2 on 08/21/2021. Her echocardiogram at that time showed normal left ventricular systolic function with ejection fraction estimated at 60%. At cycle 2-day 8 she was reporting fatigue and shortness of breath, but she was able to continue her treatment. Her further treatment was then put on hold, as her symptoms had continued to worsen. During subsequent follow-up, she was feeling better, and she was able to continue with cycle 3 on 09/16/2021. Her protein electrophoresis at that point showed her M protein stable at 0.2 g/dL. With that cycle, she was able to complete day 1, day 8, and day 15 treatments. On 10/14/2021 she began her 4th cycle of treatment. Her protein electrophoresis at that point showed M protein decreased to 0.1 g/dL. Her serum free light chain assay showed a free kappa light chain of 15.2 mg/L, free lambda light chain 26.0 mg/L, and normal kappa/lambda ratio 0.58. She was again able to complete the full cycle of treatment, and she then began cycle 5 on 11/11/2021. Her cycle 5-day 15 treatment was not administered, apparently due to scheduling issues. She is seen for a follow-up visit. She has not been feeling good generally. She says she has no energy at all. She says she is very tired and that she has been sleeping a lot. She has very limited activity. ECOG score is 2. Appetite is poor. She forces herself to eat. She has not had fever or night sweats. She has been having generalized itching. She has had some soreness on the roof of her mouth. She has not had sore throat or difficulty swallowing, and she does not complain of cough. She has some shortness of breath and she complains that she still has this heaviness feeling within her chest. She has occasional waves of nausea. She is not having acid reflux symptoms. She has not had as much diarrhea since she has been taking pain medication. She has urinary frequency and urgency. She continues to have significant pain in her right shoulder and arm, and her right lower rib cage and in her right hip area. She also has pain in her neck and lower back. She does get relief with the pain medication, but she does not like to take it very often. She has not been having headache or dizziness. She has been having some numbness in her hands. Medications: Albuterol Sulfate HFA Aerosol, solution Inhalation PRN, Arthritis Pain Reliever 2 Gm/60mL (of 1 %) Gel (jelly) Topical PRN, Aspirin 1 Tablet (of 81 mg) Tablet, chewable Oral daily, B-12 Dots 1 Tablet (of 500 mcg) Tablet Dispersable Oral daily, Claritin 1 Capsule (of 10 mg) Oral daily PRN, Dexamethasone (4 mg) Tablet Oral Take as Directed, Eliquis 1 Tablet (of 5 mg) Oral b.i.d., FLUoxetine HCl 1 Tablet (of 10 mg) Oral daily, FLUoxetine HCl 1 Capsule (of 20 mg) Oral daily, hydrALAZINE HCl 2 Tablet (of 25 mg) Oral t.i.d., HYDROcodone-Acetaminophen 1 - 2 Tablet (of 5-325 mg) Oral q 4 to 6 hours PRN, Lasix 1 - 2 Tablet (of 40 mg) Oral PRN, LORazepam 1 Tablet (of 0.5 mg) Oral b.i.d. PRN, Metoprolol Tartrate (25 mg) Tablet Oral Take as Directed, Mupirocin (2 %) Ointment Topical Take as Directed, Probiotic Capsule Oral b.i.d., RA Senna 1 Capsule (of 8.6 mg) Oral daily PRN, Vitamin D3 Super Strength 1 Capsule (of 50 mcg ) Oral b.i.d., Zofran (4 mg) Tablet Oral Take as Directed Allergies: BusPIRone HCl, Codeine and Related, Levaquin, and Morphine Derivatives. Vital Signs: Performed on Dec 09, 2021 10:37 Height - 63.50 in Weight - 205.6 lbs (HIGH) BSA - 1.97 sq.m BMI - 35.85 (HIGH) Temperature - 97.0 F (LOW) Pulse - 58 /min (LOW) Respiration - 16 /min BP - 162/8 mm(hg) (HIGH) O2 Sat - 97 % Pain - 7 Fatigue - 10 Physical Examination: Constitutional - She appears somewhat weak generally, Head - There is residual defect in the right occipital scalp. There are multiple tiny nodules along the lateral and inferior border. These appear slightly more prominent, Eyes - Sclerae nonicteric. Conjunctivae clear, ENMT - No lesions noted in the oral cavity, Hematologic/Lymphatic - No cervical, clavicular, or axillary adenopathy, Respiratory - Lungs sound clear, Cardiovascular - Heart rhythm is regular. There is a II/ systolic murmur. There is no gallop or rub noted, Abdomen - Mildly distended. There is a tiny subcutaneous nodule palpable in the right upper quadrant area. Liver and spleen are not enlarged. There is no abdominal mass or ascites noted and there is no inguinal adenopathy, Extremities - Slight edema, Neurologic - No focal neurologic deficits noted. Lab/Imaging: CBC shows hemoglobin 11.9 g, white blood cell count 4800, and platelet count 247,000. Comprehensive metabolic profile shows stable renal function with BUN 15 and creatinine 0.7 mg/dL. Bilirubin and liver enzymes are normal. The serum protein electrophoresis studies are pending. Problem List: 1. IgG lambda myeloma presenting with plasmacytoma involving the right parietal-occipital extra-axial space. She underwent resection/open biopsy of the extracranial portion of the mass on 07/20/2018. 2. She has persistent open wound at the biopsy site. 3. She has had thromboembolism with pulmonary emboli documented by CT pulmonary angiogram on 09/14/2018. She developed left upper extremity deep vein thrombosis in October 2020 in association with COVID-19 virus infection. She required hospitalization in November 2020 for revascularization of the left innominate vein and manual thrombectomy of the left subclavian vein. 4. Degenerative arthritis and degenerative disease of the spine with associated cervical and lumbar spinal stenosis. 5. Hypertension. 6. Endometriosis. 7. Anxiety/depression. Problems Addressed with this Encounter and Plan: 1. Patient with IgG lambda myeloma presenting with plasmacytoma involving the right parietal-occipital extra-axial space. She underwent resection/open biopsy of the extracranial portion of the mass on 07/20/2018. She then underwent radiation, completed on 09/02/2018 to a total dose of 5000 cGy. She had associated IgG lambda monoclonal protein in the serum and 2% monoclonal plasma cells in the bone marrow, consistent with underlying myeloma. Initially it appeared to otherwise not be symptomatic, and she was followed expectantly following completion of the radiation. By January 2019 she had developed increasing pain in the left hip/buttock area. Her repeat protein electrophoresis studies showed only a slight increase in her M protein, but her repeat PET/CT on 02/03/2019 showed significant progression of lytic bone involvement in the left ilium. There was also possible involvement in the distal right femur. The area of lytic involvement in the calvarium was not metabolically active. Her subsequent myeloma therapies included: 1. Velcade/Revlimid/dexamethasone beginning 02/23/2019. She had multiple toxicities, requiring dose reductions and treatment delays. As of July 2019 she was transitioned to maintenance Revlimid at 5 mg daily. 2. Second line treatment with daratumumab/dexamethasone began 03/21/2020. As of 06/27/2020 pomalidomide was added at a reduced dosage. She tolerated the pomalidomide very poorly due to [employer]AL[employer] MANAG[employer] MANA[employer] side effects. Treatment was then stopped due to evidence of disease progression by PET/CT on 07/12/2020. 3. She began salvage therapy with belantamab mafodotin 08/29/2020. That treatment was interrupted when she was confirmed to have COVID-19 virus infection following the 2nd cycle. It was restarted in December 2020. It was stopped after the 5th cycle, administered on 02/11/2021, due to visual changes. She appeared to have significant response by follow-up PET/CT on 03/15/2021. However, with her persistent visual symptoms, she opted to remain off treatment. During subsequent follow-up she had reported increasing pain in the right shoulder. 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 She was given palliative radiation to the right shoulder, completed on 07/08/2021 to a total dose of 3000 cGy, ministered in 10 fractions. She had some improvement in the pain with the radiation. On 07/25/2021 she began further treatment with carfilzomib/dexamethasone with the carfilzomib administered daily for 2 days on a 3-week out of 4 schedule. She was able to complete one full cycle of treatment, though during that time she complained of increasing fatigue and shortness of breath. She was evaluated with CT pulmonary angiogram, which showed no evidence of pulmonary emboli or other acute pathology. 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 There was no evidence of disease progression. She continued with cycle 2 on 08/21/2021. Echocardiogram at that point showed normal left ventricular function with estimated ejection fraction at 60%. Her treatment was put on hold following the day 8/day 9 carfilzomib infusions. She had subsequently felt better, and as of 09/16/2021 she was able to continue with cycle 3 of carfilzomib/dexamethasone. At that point he carfilzomib was changed to weekly dosing. Her M protein was stable at 0.2 g/dL. With that cycle she was able to complete day 1, day 8, and day 15 treatments. She began cycle 4 of carfilzomib/dexamethasone 10/14/2021. At that point her M protein decreased to 0.1 g/dL, and her serum free light chain assay showed kappa/lambda ratio in normal range. She is now at day 15 of cycle 4. She appears to be tolerating treatment well, but she has had worsening pain and some decline in performance status. Overall, her symptoms have been worrisome for progression of the myeloma, but it has been apparent that her protein electrophoresis studies and PET/CT have not accurately reflected the status of her disease. I have been in contact with Dr. Silva regarding other options for imaging, and she has been in the process of establishing a protocol for whole body CT bone imaging. In the meantime, as she does appear to be tolerating treatment with acceptable toxicity, she will proceed now with cycle 6 of carfilzomib/dexamethasone. The dosage and schedule will remain the same. I will tentatively plan a follow-up visit in 2 weeks. 2. 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 3. She has had thromboembolism including pulmonary emboli in August 2018 and left upper extremity deep vein thrombosis while on anticoagulation. She continues on anticoagulation with apixaban 5 mg twice daily. Signed By: Ruiz Rodriguez M.D. <<Signature on File>>
[2021-12-10 14:42] LABS: KAPPA/LAMBDA LIGHT CHAINS FREE 0.39 (0.26-1.65); LAMBDA LIGHT CHAIN, FREE, SERU 36.2 mg/L (5.7-26.3)
[2021-12-11 09:37] LABS: ABNORMAL PROTEIN BAND 1 0.1 g/dL (NONE DETECTED); ALBUMIN 3.3 g/dL (3.8-4.8); ALPHA 1 GLOBULIN 0.2 g/dL (0.2-0.3); ALPHA 2 GLOBULIN 0.7 g/dL (0.5-0.9); BETA 1 GLOBULIN 0.4 g/dL (0.4-0.6); BETA 2 GLOBULIN 0.2 g/dL (0.2-0.5); GAMMA GLOBULIN 0.3 g/dL (0.8-1.7)
== END 2021-12-09 08:18 | disposition home or self-care (01) ==
LOC: ONCMED 08:20
PROVIDERS: PCP Electrodiagnostic Medicine; Visit Provider Nurse Practitioner Family
DX: Z51.11 Encounter for antineoplastic chemotherapy (principal); C90.30 Solitary plasmacytoma not having achieved remission; I10 Essential (primary) hypertension; F41.9 Anxiety disorder, unspecified; F32.A Depression, unspecified; M47.9 Spondylosis, unspecified; Z79.899 Other long term (current) drug therapy; Z79.01 Long term (current) use of anticoagulants; Z86.711 Personal history of pulmonary embolism
CPT/HCPCS: 80053; 82784; 83883; 84155; 84165; 85025; 96361; 96413; 99215; J7040; J9047

== ENCOUNTER → 2021-12-17 11:53 | Outpatient (BNVA) | payer MEDICARE, SELFPAY | PROVIDERS: PCP Electrodiagnostic Medicine; Visit Provider Nurse Practitioner Family | DX: J06.9 Acute upper respiratory infection, unspecified (principal); Z20.822 Contact with and (suspected) exposure to COVID-19 | CPT/HCPCS: 87635 ==

== ENCOUNTER 2021-12-23 11:25 | Outpatient (CLI) | payer MEDICARE, SELFPAY ==
[2021-12-16] MEDS: sodium chloride 0.9% 500 ML 999 ML IV (14:14)
[2021-12-16] MEDS: ondansetron 2 mg/ML SDV 2 mL 8 MG IV (14:46)
[2021-12-16] MEDS: diphenhydrAMINE 50 mg/mL SDV 1mL 25 MG IV (14:47)
[2021-12-16] MEDS: famotidine 20 mg/2 mL INJ IVP (14:48)
[2021-12-23 12:04] LABS: Basophils # 0.1 10^3/uL (0.0-0.1); Basophils % 1.4 %; Eosinophils # 0.1 10^3/uL (0.0-0.8); Eosinophils % 1.5 %; Hematocrit 35.4 % (37.0-47.0); Hemoglobin 11.3 g/dL (11.5-15.3); Lymphocytes # 1.3 10^3/uL (0.8-4.8); Lymphocytes % 19.6 %; Mean Corpuscular HGB Conc 31.9 g/dL (30.0-36.0); Mean Corpuscular Hemoglobin 31.5 pg (28.0-34.0); Mean Corpuscular Volume 98.6 fl (81-99); Mean Platelet Volume 11.6 fL (7.4-10.4); Monocytes # 0.7 10^3/uL (0.2-0.9); Monocytes % 10.9 %; Neutrophils # 4.33 10^3/uL (1.8-7.7); Neutrophils % 66.4 %; Nucleated Red Blood Cells % 0 %; Platelet Count 221 10^3/cmm (130-400); Red Blood Count 3.59 10^6/uL (4.1-5.3); Red Cell Distribution Width 13.5 % (12.1-15.1); White Blood Count 6.5 10^3/uL (4.0-10.0)
[2021-12-23 12:37] LABS: Alanine Aminotransferase 15 U/L (0-33); Albumin Level 3.8 g/dL (3.5-5.2); Alkaline Phosphatase 63 IU/L (35-105); Anion Gap 15.8 (5-19); Aspartate Amino Transferase 16 U/L (0-32); Blood Urea Nitrogen 9 mg/dL (8-23); Carbon Dioxide 21 mmol/L (22-29); Chloride 107 mmol/L (98-107); Globulin 1.4 g/dL (1.3-4.6); Glomerular Filtration Rate 82.7 mL/min (90-130); Glucose 165 mg/dL (65-115); Osmolality Calculated 290 mOsm/kg (285-295); Potassium 4.8 mmol/L (3.5-5.1); Sodium 139 mmol/L (136-145); Total Bilirubin 0.3 mg/dL (0.15-1.2); Total Protein 5.2 g/dL (6.6-8.7)
[2021-12-23] MEDS: acetaminophen 325 mg Tablet 975 MG PO (14:25)
[2021-12-23] MEDS: sodium chloride 0.9% 500 ML 999 ML IV (15:30)
== END 2021-12-23 11:26 | disposition home or self-care (01) ==
PROVIDERS: Nurse Practitioner Family; PCP Electrodiagnostic Medicine; Visit Provider Internal Medicine Medical Oncology
DX: Z51.11 Encounter for antineoplastic chemotherapy (principal); C90.30 Solitary plasmacytoma not having achieved remission; M50.30 Other cervical disc degeneration, unspecified cervical region; M48.02 Spinal stenosis, cervical region; M51.36 Other intervertebral disc degeneration, lumbar region; M48.061 Spinal stenosis, lumbar region without neurogenic claudication; I10 Essential (primary) hypertension; F41.9 Anxiety disorder, unspecified; F32.9 Major depressive disorder, single episode, unspecified; N80.9 Endometriosis, unspecified; Z79.899 Other long term (current) drug therapy; Z79.52 Long term (current) use of systemic steroids
CPT/HCPCS: 80053; 85025; 96361; 96375; 96413; 99215; J1200; J2405; J3490; J7040; J9047

== ENCOUNTER 2021-12-24 14:08 | Outpatient (CLI) | payer MEDICARE, SELFPAY | END 2021-12-24 14:09 | disposition home or self-care (01) | LOC: WOUND 14:09 | PROVIDERS: PCP Electrodiagnostic Medicine; Visit Provider Emergency Medicine | DX: I96 Gangrene, not elsewhere classified (principal); L59.8 Other specified disorders of the skin and subcutaneous tissue related to radiation; Y84.2 Radiological procedure and radiotherapy as the cause of abnormal reaction of the patient, or of later complication, without mention of misadventure at the time of the procedure; Y78.1 Therapeutic (nonsurgical) and rehabilitative radiological devices associated with adverse incidents | CPT/HCPCS: 11042 ==

== ENCOUNTER 2021-12-25 07:48 | Outpatient (CLI) | payer MEDICARE, SELFPAY ==
--- NOTE | 2021-12-25 08:01 | MR_ITS ---
WS: [id number] MRI HEAD WITH CONTRAST TECHNIQUE: Sagittal T1, T2 axial, T2 axial FLAIR, axial susceptibility weighted imaging, axial diffus ion weighted images, and coronal T2 images were obtained. Pre and post-T1 axial and post T1 coronal i mages. ADC and FSPGR images. CLINICAL INFORMATION: EVAL OF NEW SYMPTOMS/MULTIPLE MYELOMA COMPARISON: MRI July 24, 2021 FINDINGS: Prior postoperative changes right parietal craniectomy with postoperative enhancement involving the u nderlying resection cavity unchanged. No evidence of increasing edema or mass effect. No evidence of progressive parenchymal disease. Enhancing calvarial lesions bilaterally appear improved and less pro minent today. Largest in the right parietal calvarium measuring 1.3 cm measures slightly smaller toda y compared to 1.8 cm previous. Narrowing of the sagittal sinus at the resection cavity unchanged in a ppearance. No evidence of restricted diffusion to suggest acute ischemia. Ventricular system and basal cisterns are patent. Moderate small vessel and treatment-related changes with moderate parenchymal volume loss unchanged. 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 Normal vascular flow voids at the skull base. No extra-axial fluid collections. Mild mucosal thickeni ng in the paranasal sinuses. Mastoid air cells demonstrate mild mucosal thickening in the mastoid tip s. Small vessel changes in the ritu. Chronic lacunar infarcts in the cerebellum. Normal optic chiasm and pituitary infundibulum. Mild symmetric atrophy temporal lobes and hippocampal formations. MR/MR head wo/w con [id number] IMPRESSION: 1. Prior postoperative changes right parietal occipital craniectomy with soft t issue scalp defect unchanged in appearance since the prior examination. 2. No evidence of recurrent or progressed parenchymal disease. Stable enhanceme nt about the resection cavity. 3. Decrease in size of the largest enhancing myelomatous calvarial lesion measu ring 1.3 cm unchanged. 4. 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 5.Narrowing of the sagittal sinus at the area of the resection cavity unchanged in appearance.
[2021-12-25] MEDS: gadobenate dimeglumine 20 mL vial IV (09:09)
--- NOTE | 2021-12-25 14:00 | USCV_ITS ---
Valentin Clark Age: 71 Gender: F : 1950 Exam Date: 12/25/2021 15:45 Ordering Phys: Maggie Potter NP Technologist: KORI Exam Location: [facility] – [place] Indication: RLE PAIN AND SWELLING HISTORY: Lower extremity swelling. Lower extremity pain. PROCEDURES: Venous duplex imaging was performed in only the right lower extremity. The following venous structures were evaluated: common femoral vein, profunda vein, proximal portion of the greater saphenous vein, superficial femoral vein, and the popliteal vein. In addition, the posterior tibial and peroneal trunk were evaluated. Serial compression, augmentation maneuvers, and spectral Doppler flow evaluation were performed. FINDINGS: No evidence of DVT seen in any vessel visualized at this time. CONCLUSIONS No evidence of right lower extremity DVT. Keenan Christianson MD (Electronically Signed) Final Date: 25 December 2021 17:21 S
--- NOTE | 2021-12-25 15:20 | XR_ITS ---
WS: [id number] [id number] REASON FOR EXAM: PAIN IN R UPPER ARM/MULTIPLE MYELOMA FINDINGS: Significantly decreased bone density of the proximal right humerus with decreased bone trabeculation. There is old organized periosteal reaction along the proximal humerus to the level of the surgical ne ck. No cortex breach. Proximal humerus appears slightly expanded. XR/[place] [id number] IMPRESSION: Old organized periosteal reaction of the proximal humerus may be related to pre vious fracture. It may also be in response to an intramedullary lesion as there is considerable rarefaction in this portion of bone with few trabeculae. Suspe ct myelomatous involvement of the proximal right humerus. This would be confirm ed with MRI as clinically warranted.
--- NOTE | 2021-12-25 15:20 | XR_ITS ---
WS: [id number] XR tibia fibula RT 2V [id number] REASON FOR EXAM: R LEG PAIN/MULTIPLE MYELOMA FINDINGS: Right tibia and fibula are intact with no acute fracture or focal bone lesion. There appears to be an old healed fracture of the distal right fibula. No periosteal reaction no erosions. XR/XR tibia fibula RT 2V [id number] IMPRESSION: No acute abnormality.
--- NOTE | 2021-12-25 15:20 | XR_ITS ---
WS: [id number] XR shoulder RT min 2V* [id number] REASON FOR EXAM: MULTIPLE MYELOMA/PAIN IN R UPPER ARM FINDINGS: Old healed fracture of the midportion of the right clavicle. Mild changes of osteoarthritis in the acromioclavicular joint with mild narrowing, subacute condyle s clerosis, and small marginal osteophytes. Moderate change of osteoarthritis in the glenohumeral joint with moderate narrowing of the joint spac e and moderate spurring of the glenoid. Findings in the proximal right humerus as described on the examination of the humerus. XR/XR shoulder RT min 2V* [id number] IMPRESSION: Mild osteoarthritis in the acromioclavicular joint. Moderate osteoarthritis in the glenohumeral joint. See humerus report for abnormality of the proximal humerus.
== END 2021-12-25 07:49 | disposition home or self-care (01) ==
PROVIDERS: PCP Electrodiagnostic Medicine; Referring Provider Electrodiagnostic Medicine; Visit Provider Nurse Practitioner Family
DX: M79.621 Pain in right upper arm (principal); M79.604 Pain in right leg; C90.00 Multiple myeloma not having achieved remission; M19.011 Primary osteoarthritis, right shoulder; M79.89 Other specified soft tissue disorders
CPT/HCPCS: 70553; 73030; 73060; 73590; 93971

== ENCOUNTER 2022-01-03 11:01 | Outpatient (CLI) | payer MEDICARE, SELFPAY ==
[2022-01-03 11:37] LABS: Basophils # 0.1 10^3/uL (0.0-0.1); Eosinophils # 0.1 10^3/uL (0.0-0.8); Eosinophils % 1.1 %; Hematocrit 36.3 % (37.0-47.0); Hemoglobin 11.4 g/dL (11.5-15.3); Lymphocytes # 1.6 10^3/uL (0.8-4.8); Lymphocytes % 23.8 %; Mean Corpuscular HGB Conc 31.4 g/dL (30.0-36.0); Mean Corpuscular Hemoglobin 31.5 pg (28.0-34.0); Mean Corpuscular Volume 100.3 fl (81-99); Mean Platelet Volume 11.4 fL (7.4-10.4); Monocytes # 0.8 10^3/uL (0.2-0.9); Monocytes % 12.2 %; Neutrophils # 3.94 10^3/uL (1.8-7.7); Neutrophils % 60.6 %; Nucleated Red Blood Cells % 0 %; Platelet Count 301 10^3/cmm (130-400); Red Blood Count 3.62 10^6/uL (4.1-5.3); White Blood Count 6.5 10^3/uL (4.0-10.0)
[2022-01-03 12:06] LABS: Alanine Aminotransferase 19 U/L (0-33); Albumin Level 3.8 g/dL (3.5-5.2); Alkaline Phosphatase 63 IU/L (35-105); Anion Gap 14.3 (5-19); Aspartate Amino Transferase 28 U/L (0-32); Blood Urea Nitrogen 18 mg/dL (8-23); Calcium 8.5 mg/dL (8.5-10.5); Carbon Dioxide 23 mmol/L (22-29); Chloride 106 mmol/L (98-107); Globulin 1.5 g/dL (1.3-4.6); Glomerular Filtration Rate 49.1 mL/min (90-130); Glucose 134 mg/dL (65-115); Osmolality Calculated 292 mOsm/kg (285-295); Potassium 4.3 mmol/L (3.5-5.1); Sodium 139 mmol/L (136-145); Total Bilirubin 0.3 mg/dL (0.15-1.2); Total Protein 5.3 g/dL (6.6-8.7)
[2022-01-03 12:34] LABS: Immunoglobulin IGA 15 mg/dL (70-400); Immunoglobulin IGG 273 mg/dL (700-1600); Immunoglobulin IGM 6 mg/dL (40-230)
[2022-01-04 08:32] LABS: PROTEIN, TOTAL 4.9 g/dL (6.1-8.1)
[2022-01-06 14:42] LABS: KAPPA LIGHT CHAIN, FREE, SERUM 11.4 mg/L (3.3-19.4); KAPPA/LAMBDA LIGHT CHAINS FREE 0.29 (0.26-1.65); LAMBDA LIGHT CHAIN, FREE, SERU 38.9 mg/L (5.7-26.3)
[2022-01-06 15:26] LABS: ABNORMAL PROTEIN BAND 1 0.1 g/dL (NONE DETECTED); ALBUMIN 3.2 g/dL (3.8-4.8); ALPHA 1 GLOBULIN 0.2 g/dL (0.2-0.3); ALPHA 2 GLOBULIN 0.7 g/dL (0.5-0.9); BETA 1 GLOBULIN 0.3 g/dL (0.4-0.6); BETA 2 GLOBULIN 0.2 g/dL (0.2-0.5); GAMMA GLOBULIN 0.3 g/dL (0.8-1.7)
== END 2022-01-03 11:02 | disposition home or self-care (01) ==
PROVIDERS: PCP Electrodiagnostic Medicine; Visit Provider Nurse Practitioner Family
DX: C90.00 Multiple myeloma not having achieved remission (principal); C79.51 Secondary malignant neoplasm of bone; D47.2 Monoclonal gammopathy; E83.51 Hypocalcemia; Z79.899 Other long term (current) drug therapy
CPT/HCPCS: 36591; 80053; 82784; 83883; 84155; 84165; 85025

== ENCOUNTER 2022-01-04 10:01 | Outpatient (CLI) | payer MEDICARE, SELFPAY ==
[2022-01-05 10:02] LABS: CREATININE, 24 HOUR URINE 1.27 g/24 h (0.50-2.15); PROTEIN, TOTAL, 24 HR UR 145 mg/24 h (<150); Protein/Creatinine Ratio 0.114 (< OR = 0.114); Protein/Creatinine Ratio 114 mg/g creat (< OR = 114)
[2022-01-06 16:58] LABS: ALBUMIN 100 %; ALPHA-1-GLOBULINS 0 %; ALPHA-2-GLOBULINS 0 %; BETA GLOBULINS 0 %; GAMMA GLOBULINS 0 %
== END 2022-01-04 10:02 | disposition home or self-care (01) ==
PROVIDERS: PCP Electrodiagnostic Medicine; Visit Provider Internal Medicine Medical Oncology
DX: E83.51 Hypocalcemia (principal); C90.00 Multiple myeloma not having achieved remission; C79.51 Secondary malignant neoplasm of bone
CPT/HCPCS: 84156; 84166

== ENCOUNTER 2022-01-06 10:01 | Outpatient (CLI) | payer MEDICARE, SELFPAY ==
[2022-01-06] MEDS: dextrose 5% 250 ML 75 ML IV (11:15)
[2022-01-06] MEDS: famotidine 20 mg/2 mL INJ IVP (11:35)
[2022-01-06] MEDS: ondansetron 2 mg/ML SDV 2 mL 8 MG IV (11:40)
[2022-01-06] MEDS: diphenhydrAMINE 50 mg/mL SDV 1mL 25 MG IV (11:44)
[2022-01-06] MEDS: sodium chloride 0.9% 500 ML 999 ML IV (12:31)
--- NOTE | 2022-01-07 07:01 | ONC FU_ITS ---
Dr. Rodriguez Patient Follow-Up Note Patient: Valentin Clark Unit #: [id number]: [id number] Dicatated By: Ruiz Rodriguez M.D.Date of Visit:Jan 06, 2022 Onc Med Follow-up/Prog Note Chief Complaint: Mulitple myeloma. 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 In March 2018 she had bumped her head at work and in the process of that she became aware of a small lump, though it was actually in a slightly different area. She then noticed that the lump was getting larger. Evaluation with head MRI on 06/07/2018 showed evidence of a right parietal occipital extra-axial neoplasm, felt to be most likely meningeal in origin. It was noted to exert mass effect on the right parietal and occipital lobes, but without associated midline shift or white matter parenchymal edema. The lesion was noted to invade through the calvarium and into the subcutaneous parietal occipital scalp soft tissues. The mass measured 5.7 x 3.5 x 6 cm. 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 The area of occlusion was noted to extend over approximately 4.3 cm. She was seen by Dr. Landry and subsequently referred for neurosurgery evaluation at [facility]. Initially they had considered possible surgical resection. Her further evaluation there apparently included laboratory findings which were suspicious for myeloma, and it was recommended that she have treatment with radiation. She was seen here for further management on 07/14/2018. She then returned to Dr. Landry, and on 07/20/2018 she underwent open biopsy/resection of the extracranial extent of the mass. 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 Her further evaluation included protein electrophoresis which showed an IgG lambda monoclonal protein in the serum quantitating at 0.48 g/dL. The serum free light chain assay showed elevated lambda light chain at 374.65 mg/L with decreased kappa/lambda ratio at 0.06. The 24-hour urine protein electrophoresis showed no monoclonal protein. There were no other areas of lytic bone involvement noted on her skeletal survey. Bone marrow aspiration/biopsy on 07/30/2018 showed a monotypic plasma cell population, but it comprised only 2% of the total cellularity. A FISH panel for myeloma was unrevealing, and the standard chromosome analysis was normal. She was referred to Dr. Kaur, and she began radiation to the lesion on 07/30/2018. She completed treatment on 09/02/2018 to a total dose of 5,000 cGy. She had evaluation with CT pulmonary angiogram on 09/14/2018. It showed moderate bilateral pulmonary embolic burden. She began on anticoagulation with apixaban. During her subsequent follow-up she continued to have an open wound at the site of the plasmacytoma in the parietal-occipital scalp region. As of her follow-up visit on 10/19/2018 her M protein was stable 0.37 g/dL. In the absence of any evidence of symptomatic myeloma, she had otherwise just continued on observation/expectant management. However, due to her persistent scalp wound she had a repeat brain MRI on 01/11/2019. It showed evidence of residual neoplastic process at the resection site. There was associated dural involvement but with improved signal characteristics and decreased enhancement compared to the study from September 2018. She had further evaluation with PET/CT on 02/03/2019. It showed increase in size and expansile hypermetabolic lesion within the left ilium with extension of hypermetabolic tumor into the adjacent left iliac muscle. There was a new hypermetabolic lytic process within the right S1/S2 region. A large lytic mass within the posterior calvarium did not appear to have active hypermetabolism. Also noted, though, was a hypermetabolic lesion within the medullary canal of the distal left femoral diametaphysis and an additional hypermetabolic focus in the anterior cortex of the distal right femur concerning for additional areas of myeloma. In the setting of obvious progression of her myeloma, she began treatment with VRd on 02/23/2019. At that time she also received an infusion of IV Zometa for the lytic bone involvement. She experienced multiple toxicities with the VRd regimen, requiring dose reductions and treatment delays. Beginning with cycle 4, in June 2019 the Velcade was dropped from the regimen, and the following month her treatment was put on hold due to multiple toxicities, mainly severe fatigue and excessive somnolence. She was found to have a low B12 level, for which she began on B12 replacement therapy. At her follow-up visit on 11/28/2019 she was still mildly anemic, and transferrin saturation was still low at 17% despite being on oral iron replacement. As such, she was then given parenteral iron replacement with infusions of Injectafer on 11/28/2019 and on 12/05/2019. With the 11/28 visit she also was given denosumab 120 mg by subcutaneous injection for the lytic bone involvement. On 12/06/2019 she was admitted to the hospital with symptomatic hypocalcemia, serum calcium 5.9 mg/dL with albumin 2.9 g/dL. Renal function was stable with creatinine 1.0 mg/dL, but her potassium also was low at 3.2 mmol/L. She was given IV calcium and potassium replacement. She then continued further IV replacement as an outpatient. Despite that she was readmitted to the hospital with hypocalcemia on 12/15/2019. She was discharged home on 12/23/2019. Her evaluation included CT pulmonary angiogram which showed no evidence of pulmonary embolism. There was evidence of cardiomegaly, a small pericardial effusion, and small bilateral pleural effusions. Echocardiogram showed small, hemodynamically insignificant pericardial effusion and normal left ventricular function. She then returned here on 12/27/2019 and she has since then continued IV fluid and electrolyte replacement, daily for the first week and then on Mondays, Wednesdays, and Fridays. Despite that, she continued to feel weak and shaky, and she had ongoing complaints of nausea and anorexia. She continued to require IV fluid and electrolyte replacement but she did show gradual recovery. Her further treatment remained on hold. Repeat protein electrophoresis on 01/16/2020 showed stable M protein at 0.4 g/dL. The serum free light chain assay showed elevated free lambda light chain at 254 mg/L with decreased kappa/lambda ratio at 0.16. There was no monoclonal protein identified in the 24-hour urine protein electrophoresis. Restaging PET/CT on 02/24/2020 showed findings concerning for disease progression with new areas of marrow hypermetabolism within the right proximal humerus and within the bilateral distal femoral diametaphysis. The existing areas of involvement within the left ilium and sacrum showed further decrease in FDG uptake. With those findings, I had recommended that she proceed to second line treatment with daratumumab/dexamethasone. She eventually was able to begin her initial infusion of daratumumab on 03/21/2020. Her repeat free light chain assay prior to that showed further increase in the lambda light chain to 537 mg/L with kappa/lambda ratio 0.06. She tolerated the daratumumab with no adverse effects, and she then continued treatment weekly. On 05/03/2020 she underwent EGD and colonoscopy by Dr. Jimenes. The EGD showed no significant abnormal findings, and the colonoscopy showed just 2 small polyps in the rectum. 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 As of 05/09/2020 she had completed her 8th infusion on the weekly schedule, and as of 05/16/2020 she received her 1st of 8 planned infusions at the 2-week interval. Her M protein at that point was stable at 0.4 g/dL. The free light chain assay showed a decrease in the free lambda light chain from 537.4 to 205.2 mg/L. However, her repeat head MRI on 06/05/2020 showed significant progression of the myelomatous lesions within the skull compared to the study from January 2020. Numerous calvarial lesions were now present, the largest in the right parietal bone measuring 2.2 cm. The postoperative resection site in the posterior right parietal lobe showed significantly more enhancement with slightly more dural enhancement, also suspicious for progression of neoplastic changes. With that finding, she had continued the daratumumab and dexamethasone, but beginning on 06/27/2020 I added pomalidomide at a reduced dosage of 2 mg daily on a 21/-day schedule. Her repeat PET/CT on 07/12/2020 showed a large lytic lesion within the posterior right calvarium, but without associated hypermetabolism. There were no new lesions identified within the calvarium. There was persistent hypermetabolism noted within the proximal right humerus, SUV 3.6, and there was new hypermetabolism within the marrow of the proximal left humerus, SUV 3.6. There was decrease in FDG uptake within the medial left ilium. There was persistent hypermetabolism noted in the right femoral diametaphysis and in the distal left femoral diametaphysis. There was new hypermetabolism noted in the proximal left tibia. Overall the findings were concerning for disease progression, and she was recommended to undergo a trial of salvage therapy with belantamab [id number]. On 08/29/2020 she began cycle 1 of belantamab [id number]. She tolerated the initial infusion without acute toxicity. She continued with cycle 2 on 09/19/2020. Her further management was then complicated by COVID-19 virus infection and by left upper extremity deep vein thrombosis for which she underwent revascularization of the left innominate vein and manual thrombectomy of the left subclavian vein. She was then able to continue the belantamab-mafodotin at 3-week intervals. As of 02/11/2021 she had completed her 5th cycle. Her further treatment was then put on hold due to visual symptoms, though her repeat eye exam in February had shown only grade 1 changes. Repeat head MRI on 02/26/2021 showed no evidence of recurrent or progressed disease. There is stable enhancement about the resection cavity in the right parieto-occipital area. Multiple enhancing myelomatous lesions involving the underlying calvarium appeared stable. The largest was in the right parietal calvarium measuring 1.8 cm. 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 There was associated encephalomalacia and gliosis. Her other medical illnesses include hypertension and degenerative arthritis/degenerative disease of the spine. She has associated cervical and lumbar spinal stenosis. She has a history of endometriosis, and she has anxiety/depression. She is a nonsmoker. INTERIM HISTORY: Restaging PET/CT on 03/15/2021 showed a small focus of increased tracer accumulation in the soft tissues/bone marrow of the right posterior skull with maximum SUV 4.70. That area had not been included on the previous study, so it could not be compared. However, the appearance was consistent with residual myeloma. Also noted was stable mild increased metabolic activity in the left proximal humerus with maximum SUV 3.03. There was no focal increase in the right proximal humerus, noted to have resolved compared to the prior study. Also noted was resolution of previously described metabolic increased activity in the left proximal fibula and in both distal femoral metadiaphyses. Overall the study was noted to be significantly improved. As of her follow-up visit on 05/07/2021 she was showing some decline in performance status. She reported having new pain in her back and she reported increased pain in her right shoulder. MRI of the right shoulder on 05/27/2021 showed an enhancing intramedullary lesion centered in the right humeral head measuring 3.5 x 1.9 cm. A smaller adjacent satellite lesion was noted to extend towards the greater tuberosity. The findings were most consistent with metastatic sites from the myeloma. She was seen by Dr. Bah for palliative radiation. She had had further evaluation with MRI of the left shoulder which showed an intramedullary T2 hyperintense enhancing lesion in the left humeral head measuring 2.6 x 2.1 x 4.1 cm. With those findings, she underwent palliative radiation to the right shoulder. Treatment was completed on 07/08/2021 to a total dose of 3000 cGy administered in 10 fractions. Repeat head MRI on 07/24/2021 showed stable postoperative findings associated with the previous right parietal occipital craniectomy. Enhancing myelomatous calvarial lesions, the largest in the right parietal calvarium measuring 1.8 cm, also appeared stable. There was no evidence for recurrent or progressed parenchymal disease. There was evidence for chronic infarcts in the left cerebellum with associated encephalomalacia and gliosis. With evidence of disease progression she then began further treatment with carfilzomib/dexamethasone with the carfilzomib administered on a standard day 1/2, day 8/9, and day 15/16 schedule to minimize the risk of toxicity. Her baseline echocardiogram showed adequate LV function with estimated ejection fraction at 60%. At day 8 she reported increased shortness of breath. A CT pulmonary angiogram showed no evidence of pulmonary emboli or other acute pathology. She was able to complete that cycle of treatment. Restaging PET/CT on 08/16/2021 showed stable left proximal humerus bone mineral tumor involvement. There was improvement in the appearance of the right posterior calvarial lesion with SUV activity consistent with inflammatory changes. There was no evidence for disease progression. She then continued with cycle 2 on 08/21/2021. Her echocardiogram at that time showed normal left ventricular systolic function with ejection fraction estimated at 60%. At cycle 2-day 8 she was reporting fatigue and shortness of breath, but she was able to continue her treatment. Her further treatment was then put on hold, as her symptoms had continued to worsen. During subsequent follow-up, she was feeling better, and she was able to continue with cycle 3 on 09/16/2021. Her protein electrophoresis at that point showed her M protein stable at 0.2 g/dL. With that cycle, she was able to complete day 1, day 8, and day 15 treatments. On 10/14/2021 she began her 4th cycle of treatment. Her protein electrophoresis at that point showed M protein decreased to 0.1 g/dL. Her serum free light chain assay showed a free kappa light chain of 15.2 mg/L, free lambda light chain 26.0 mg/L, and normal kappa/lambda ratio 0.58. She was again able to complete the full cycle of treatment, and she then began cycle 5 on 11/11/2021. Her cycle 5-day 15 treatment was not administered, apparently due to scheduling issues. She continued with cycle 6 on 12/09/2021. Her M protein remained stable at 0.1 g/dL. Her free lambda light chain was up slightly at 36.2 mg/L with kappa/lambda ratio 0.39. Her repeat had an MRI on 12/25/2021 showed stable postoperative changes of right parietal occipital craniectomy with no evidence of recurrent or progressed parenchymal disease. There was stable enhancement about the resection cavity. There was decrease in the size of the largest enhancing myelomatous calvarial lesion measuring 1.3 cm. She is seen for a follow-up visit. Lately she has been feeling a lot better. She has noted improvement in her energy/activity tolerance, and she has been doing light work. She is in the process of packing and getting ready to move to [place], tentatively scheduled to occur in February. She still has no appetite, but she has gained a little weight. She does not have fever or night sweats. She complains that the roof of her mouth is sore. Her cough is better now, and she says her breathing is better than it was. She does not complain of chest pain. She has occasional heart racing. She has a little bit of acid reflux. Her bowels go back and forth from mild constipation to loose stools. She is now having just occasional diarrhea. Bladder function remains adequate. She says she has not been voiding as much. She continues to have some pain in the right shoulder and she has some pain in her right leg. She does not complain of headache. She has ongoing problems with balance. She has no numbness/paresthesia or other focal neurologic symptoms, but she does complain of having muscle cramping in her right hand and right foot. Medications: Albuterol Sulfate HFA Aerosol, solution Inhalation PRN, Arthritis Pain Reliever 2 Gm/60mL (of 1 %) Gel (jelly) Topical PRN, Aspirin 1 Tablet (of 81 mg) Tablet, chewable Oral daily, B-12 Dots 1 Tablet (of 500 mcg) Tablet Dispersable Oral daily, Claritin 1 Capsule (of 10 mg) Oral daily PRN, Dexamethasone (4 mg) Tablet Oral Take as Directed, Doxycycline Hyclate (100 mg) Tablet Oral b.i.d., Eliquis 1 Tablet (of 5 mg) Oral b.i.d., FLUoxetine HCl 1 Tablet (of 10 mg) Oral daily, FLUoxetine HCl 1 Capsule (of 20 mg) Oral daily, hydrALAZINE HCl 2 Tablet (of 25 mg) Oral t.i.d., HYDROcodone-Acetaminophen 1 - 2 Tablet (of 5-325 mg) Oral q 4 to 6 hours PRN, Lasix 1 - 2 Tablet (of 40 mg) Oral PRN, LORazepam 1 Tablet (of 0.5 mg) Oral b.i.d. PRN, Metoprolol Tartrate (25 mg) Tablet Oral Take as Directed, Mupirocin (2 %) Ointment Topical Take as Directed, Probiotic Capsule Oral b.i.d., RA Senna 1 Capsule (of 8.6 mg) Oral daily PRN, Vitamin D3 Super Strength 1 Capsule (of 50 mcg ) Oral b.i.d., Zofran (4 mg) Tablet Oral Take as Directed Allergies: BusPIRone HCl, Codeine and Related, Levaquin, and Morphine Derivatives. Vital Signs: Performed on Jan 06, 2022 10:36 Height - 63.50 in Weight - 210.0 lbs BSA - 1.99 sq.m BMI - 36.62 (HIGH) Temperature - 98.3 F (LOW) Pulse - 72 /min Respiration - 18 /min BP - 162/80 mm(hg) (HIGH) O2 Sat - 97 % Pain - 4 Fatigue - 7 Physical Examination: Constitutional - She looks pretty good generally, Eyes - Sclerae nonicteric. Conjunctivae clear, ENMT - No lesions noted in the oral cavity, Hematologic/Lymphatic - No cervical, clavicular, or axillary adenopathy, Respiratory - Lungs sound clear, Cardiovascular - Heart rhythm is regular. There is a II/ systolic murmur. There is no gallop or rub noted, Abdomen - Mildly distended. Liver and spleen are not enlarged. There is no abdominal mass or ascites noted and there is no inguinal adenopathy, Extremities - There is mild swelling of the left leg, Neurologic - No focal neurologic deficits noted. Lab/Imaging: Test performed on Dec 23, 2021 11:46 Sodium 139 mmol/L Potassium 4.8 mmol/L Chloride 107 mmol/L CO2 21 mmol/L Anion Gap 15.8 BUN 9 mg/dL Creatinine 0.7 mg/dL Cr Clearance (Est) 110.1000 mL/min eGFR 82.7 mL/min Glucose 165 mg/dL Osmolality - Calculated 290 mOsm/kg Calcium 9.0 mg/dL Protein, Total 5.2 g/dL Albumin 3.8 g/dL Globulin 1.4 g/dL Bilirubin, Total 0.3 mg/dL ALT (SGPT) 15 U/L AST (SGOT) 16 U/L Alkaline Phosphatase 63 IU/L WBC 6.5 10 3/uL RBC 3.59 10 6/uL HGB 11.3 g/dL HCT 35.4 % MCV 98.6 fl MCH 31.5 pg MCHC 31.9 g/dL RDW 13.5 % Platelet Count 221 10 3/cmm MPV 11.6 fL Neutrophils 4.33 10 3/uL Lymphocytes 1.3 10 3/uL Monocytes 0.7 10 3/uL Eosinophils 0.1 10 3/uL Basophils 0.1 10 3/uL Neutrophil % 66.4 % Lymphocyte % 19.6 % Monocyte % 10.9 % Eosinophil % 1.5 % Basophils % 1.4 % NRBC % 0 % Test performed on Nov 11, 2021 10:08 [place] Free Light Chains 11.7 mg/L Lambda Free Light Chains 29.0 mg/L IgA 15 mg/dL [place]/Lambda Free Ratio 0.40 Test performed on Oct 14, 2021 11:15 Ua Color Yellow Ua Appearance Clear Ua Glucose Norm Ua Bilirubin Neg Ua Ketones Negative Ua Specific [place] 1.015 Ua Blood Neg Ua pH 5 Ua Protein Neg Ua Nitrites Negative Ua Leukocyte Esterase 1+ Ua Micro: WBC 5-10 /hpf Ua Micro: RBC NONE /hpf Ua Micro: Squam Epith Cells 5-10 /hpf Ua Micro: Bacteria TRACE /hpf Ua Micro: Other Crystals TALC /hpf Test performed on Oct 14, 2021 09:27 Ferritin 135 ng/mL Iron 109 mcg/dL Iron Binding Capacity (TIBC) 280 mcg/dl % Iron Saturation 38.9 % UIBC 171 mcg/dL Test performed on Jul 31, 2021 10:35 Vitamin B12 463 pg/mL Test performed on Jul 25, 2021 12:10 LDH (Total) 104 U/L Problem List: 1. IgG lambda myeloma presenting with plasmacytoma involving the right parietal-occipital extra-axial space. She underwent resection/open biopsy of the extracranial portion of the mass on 07/20/2018. 2. She has persistent open wound at the biopsy site. 3. She has had thromboembolism with pulmonary emboli documented by CT pulmonary angiogram on 09/14/2018. She developed left upper extremity deep vein thrombosis in October 2020 in association with COVID-19 virus infection. She required hospitalization in November 2020 for revascularization of the left innominate vein and manual thrombectomy of the left subclavian vein. 4. Degenerative arthritis and degenerative disease of the spine with associated cervical and lumbar spinal stenosis. 5. Hypertension. 6. Endometriosis. 7. Anxiety/depression. Problems Addressed with this Encounter and Plan: 1. Patient with IgG lambda myeloma presenting with plasmacytoma involving the right parietal-occipital extra-axial space. She underwent resection/open biopsy of the extracranial portion of the mass on 07/20/2018. She then underwent radiation, completed on 09/02/2018 to a total dose of 5000 cGy. She had associated IgG lambda monoclonal protein in the serum and 2% monoclonal plasma cells in the bone marrow, consistent with underlying myeloma. Initially it appeared to otherwise not be symptomatic, and she was followed expectantly following completion of the radiation. By January 2019 she had developed increasing pain in the left hip/buttock area. Her repeat protein electrophoresis studies showed only a slight increase in her M protein, but her repeat PET/CT on 02/03/2019 showed significant progression of lytic bone involvement in the left ilium. There was also possible involvement in the distal right femur. The area of lytic involvement in the calvarium was not metabolically active. Her subsequent myeloma therapies included: 1. Velcade/Revlimid/dexamethasone beginning 02/23/2019. She had multiple toxicities, requiring dose reductions and treatment delays. As of July 2019 she was transitioned to maintenance Revlimid at 5 mg daily. 2. Second line treatment with daratumumab/dexamethasone began 03/21/2020. As of 06/27/2020 pomalidomide was added at a reduced dosage. She tolerated the pomalidomide very poorly due to [employer] side effects. Treatment was then stopped due to evidence of disease progression by PET/CT on 07/12/2020. 3. She began salvage therapy with belantamab mafodotin 08/29/2020. That treatment was interrupted when she was confirmed to have COVID-19 virus infection following the 2nd cycle. It was restarted in December 2020. It was stopped after the 5th cycle, administered on 02/11/2021, due to visual changes. She appeared to have significant response by follow-up PET/CT on 03/15/2021. However, with her persistent visual symptoms, she opted to remain off treatment. During subsequent follow-up she had reported increasing pain in the right shoulder. 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 She was given palliative radiation to the right shoulder, completed on 07/08/2021 to a total dose of 3000 cGy, ministered in 10 fractions. She had some improvement in the pain with the radiation. Despite having evidence of progression of myelomatous bone involvement, her M protein was stable at 0.2 g/dL and her lambda free light chain had increased only slightly, to 32.6 mg/L, with kappa/lambda ratio normal at 0.54. On 07/25/2021 she began further treatment with carfilzomib/dexamethasone with the carfilzomib administered daily for 2 days on a 3-week out of 4 schedule. She was able to complete one full cycle of treatment, though during that time she complained of increasing fatigue and shortness of breath. She was evaluated with CT pulmonary angiogram, which showed no evidence of pulmonary emboli or other acute pathology. 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 There was no evidence of disease progression. She continued with cycle 2 on 08/21/2021. Echocardiogram at that point showed normal left ventricular function with estimated ejection fraction at 60%. Her treatment was put on hold following the day 8/day 9 carfilzomib infusions. She was able to restart treatment with cycle 3 on 09/16/2021. She then continued with cycle 4 on 10/14/2021, with cycle 5 on 11/11/2021, and with cycle 6 on 12/09/2021. At that point her disease appeared stable with her M protein stable at 0.1 g/dL and with her free lambda light chain basically stable at 36.2 mg/L. In the absence of any evidence of disease progression, she will continue with cycle 7 of carfilzomib/dexamethasone. The dosages and schedule will remain the same. She will return for treatment in 1 week and for a follow-up visit in 2 weeks. 2. 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 3. In October 2020 she developed left upper extremity deep vein thrombosis in association with COVID-19 virus infection. She remains on anticoagulation with apixaban. Signed By: Ruiz Rodriguez M.D. <<Signature on File>>
== END 2022-01-06 10:02 | disposition home or self-care (01) ==
PROVIDERS: PCP Electrodiagnostic Medicine; Visit Provider Internal Medicine Medical Oncology
DX: Z51.11 Encounter for antineoplastic chemotherapy (principal); C90.30 Solitary plasmacytoma not having achieved remission; I10 Essential (primary) hypertension; M47.9 Spondylosis, unspecified; F41.9 Anxiety disorder, unspecified; F32.A Depression, unspecified; Z79.899 Other long term (current) drug therapy; Z79.01 Long term (current) use of anticoagulants; Z86.718 Personal history of other venous thrombosis and embolism; Z86.16 Personal history of COVID-19
CPT/HCPCS: 96360; 96361; 96375; 96413; 99215; J1200; J2405; J3490; J7040; J9047

== ENCOUNTER 2022-01-07 07:04 | Outpatient (CLI) | payer MEDICARE, SELFPAY ==
[2022-01-07 07:28] VITALS: BMI 37.2
--- NOTE | 2022-01-07 07:28 | ECG_ITS ---
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 Interpretive Statements NAME OF STUDY: LEXISCAN SESTAMIBI STRESS TEST INDICATION: Chest Pain; Dyspnea PROCEDURE: At the baseline, the blood pressure was 114/63 mm Hg with a heart rate of 70 bpm. The electrocardiogram showed sinus rhythm, normal axis with normal ST-T's. The Lexiscan was infused over a period of 20 seconds. A total of 0.4 milligrams of Lexiscan was infused. The stress phase was continued for a total of 5 minutes. Heart rate at the end of the stress phase was 80 bpm with a blood pressure of 118/54 bpm. The EKG at the peak infusion revealed sinus rhythm with no significant ST-T wave changes. The study was terminated due to protocol completion. Sestamibi was injected 20 seconds after the Lexiscan infusion. Blood pressure at the end of the recovery phase was 147/75 mm Hg with a heart rate of 79 beats per minute. CONCLUSION: 1. No significant EKG changes with the LexiScan infusion. 2. No LexiScan induced chest pain or cardiac arrhythmia. 3. Normal blood pressure and heart rate response. 4. Sestamibi/sestamibi perfusion scan pending; see separate report. Electronically Signed On 01-08-2022 14:36:38 SAMPLE WORKER by Kelsi Mccurdy M.D. [email or web address]
--- NOTE | 2022-01-07 07:29 | NMCV_ITS ---
NM sara perf SPECT r/s* [id number] Valentin Clark Age: 71 Gender: F : 1950 Exam Date: 01/07/2022 08:24 Ordering Phys: Kelsi Mccurdy MD ([email or web address]) Technologist: IVONNE Weston Exam Location: [facility] Indications: CHEST PAIN STRESS TEST Please see separate stress test report in [facility] for full findings IMAGE PROTOCOL Rest/Stress 1 Lexiscan Day Radiopharmaceutical Dose (mCi) Administration Site Administered by Rest: Tc-99m 10.6 IV IVONNE Varma Sestamibi Stress:Tc-99m 32.6 IV IVONNE Varma Sestamibi Rest: 07-Jan-2022 60 Discovery 630 Stress: 07-Jan-2022 30 Discovery 630 0.4mg Lexiscan. Images obtained in supine and prone position. SPECT RESULTS Technical Quality: Excellent Raw Data Analysis: Normal Image Corrections: No attenuation or motion correction applied Summed Stress Score: 3 Summed Rest Score: 0 Summed Difference Score: 3 PERFUSION FINDINGS Small sized perfusion abnormality of mild severity of mid anterior and apical lateral h[place] on supine stress images with improved tracer uptake on prone stress images. This is suggestive of attenuation artifact. FUNCTIONAL RESULTS (calculated via Gated SPECT) Stress Image LV EF (%): 69 Stress EDV (mL):142 TID: 1.02 Stress ESV (mL):44 FUNCTIONAL FINDINGS: The left ventricle is normal in size. Transient Ischemia Dilatation of 1. There is normal left ventricular systolic function. The left ventricular ejection fraction is normal with a value of 69%. There is normal left ventricular wall thickening with no regional wall motion abnormality. Normal end diastolic and end systolic volumes. IMPRESSIONS 1. Myocardial perfusion imaging is normal. Attenuation artifact in mid anterior and apical lateral hidalgo. 2. Overall left ventricular systolic function is normal without regional wall motion abnormalities. 3. The left ventricular ejection fraction is normal with a value of 69%. 4. No coronary ischemia based on this study. Kelsi Mccurdy MD (Electronically Signed) Final Date: 10 January 2022 10:26 S
[2022-01-07] MEDS: regadenoson 0.4 Mg/5 ml Syringe IVP (08:53)
[2022-01-07] MEDS: aminophylline 25 mg/mL SDV 10 mL IVP (09:04)
[2022-01-07 09:14] VITALS: BP 147/75; PULSE 82
== END 2022-01-07 07:05 | disposition home or self-care (01) ==
LOC: CCL 07:04 → CDL 07:12
PROVIDERS: PCP Electrodiagnostic Medicine; Visit Provider Internal Medicine Cardiovascular Disease
DX: R07.9 Chest pain, unspecified (principal); R06.00 Dyspnea, unspecified
CPT/HCPCS: 78452; 93017; A9500; J0280; J2785

== ENCOUNTER 2022-01-13 09:56 | Outpatient (CLI) | payer MEDICARE, SELFPAY ==
[2022-01-13 10:37] LABS: Basophils # 0.1 10^3/uL (0.0-0.1); Basophils % 2.8 %; Eosinophils # 0.2 10^3/uL (0.0-0.8); Eosinophils % 4.9 %; Hemoglobin 10.2 g/dL (11.5-15.3); Lymphocytes # 1.3 10^3/uL (0.8-4.8); Lymphocytes % 27.8 %; Mean Corpuscular HGB Conc 30.9 g/dL (30.0-36.0); Mean Corpuscular Volume 100.3 fl (81-99); Mean Platelet Volume 11.8 fL (7.4-10.4); Monocytes # 0.7 10^3/uL (0.2-0.9); Monocytes % 14.6 %; Neutrophils # 2.35 10^3/uL (1.8-7.7); Neutrophils % 49.7 %; Nucleated Red Blood Cells % 0 %; Platelet Count 167 10^3/cmm (130-400); Red Blood Count 3.29 10^6/uL (4.1-5.3); Red Cell Distribution Width 13.5 % (12.1-15.1); White Blood Count 4.7 10^3/uL (4.0-10.0)
[2022-01-13 11:11] LABS: Alanine Aminotransferase 16 U/L (0-33); Albumin Level 3.4 g/dL (3.5-5.2); Alkaline Phosphatase 67 IU/L (35-105); Aspartate Amino Transferase 15 U/L (0-32); Blood Urea Nitrogen 10 mg/dL (8-23); Calcium 8.6 mg/dL (8.5-10.5); Carbon Dioxide 22 mmol/L (22-29); Chloride 108 mmol/L (98-107); Globulin 1.9 g/dL (1.3-4.6); Glomerular Filtration Rate 70.9 mL/min (90-130); Glucose 89 mg/dL (65-115); Osmolality Calculated 289 mOsm/kg (285-295); Sodium 140 mmol/L (136-145); Total Bilirubin 0.3 mg/dL (0.15-1.2); Total Protein 5.3 g/dL (6.6-8.7)
[2022-01-13] MEDS: diphenhydrAMINE 50 mg/mL SDV 1mL 25 MG IV (14:15)
[2022-01-13] MEDS: sodium chloride 0.9% 500 ML 999 ML IV (14:15)
== END 2022-01-13 09:57 | disposition home or self-care (01) ==
PROVIDERS: PCP Electrodiagnostic Medicine; Visit Provider Internal Medicine Medical Oncology
DX: Z51.11 Encounter for antineoplastic chemotherapy (principal); C90.00 Multiple myeloma not having achieved remission
CPT/HCPCS: 80053; 85025; 96361; 96375; 96413; J1200; J7040; J9047

== ENCOUNTER 2022-01-15 13:50 | Outpatient (CLI) | payer MEDICARE, SELFPAY ==
--- NOTE | 2022-01-15 14:18 | USCV_ITS ---
Valentin Clark Age: 71 Gender: F : 1950 Exam Date: 01/15/2022 14:40 Ordering Phys: Ruiz Rodriguez MD Technologist: JOHANNE Exam Location: [facility] [place] Indication: High Risk Medication BP: 170 / 68 HR: 59 Rhythm: Sinus Technical Quality: Technically difficult study MEASUREMENTS (Male / Female) Normal Values 2D ECHO LV Diastolic Diameter PLAX 4.9 cm 4.2 - 5.9 / 3.9 - 5.3 cm LV Systolic Diameter PLAX 3.5 cm IVS Diastolic Thickness 1.4 cm 0.6 - 1.0 / 0.6 - 0.9 cm IVS Systolic Thickness 1.6 cm LVPW Diastolic Thickness 1.3 cm 0.6 - 1.0 / 0.6 - 0.9 cm LVPW Systolic Thickness 1.4 cm LVOT Diameter 2.1 cm LV Ejection Fraction 2D Teich 55.5 % LV Ejection Fraction MOD 2C 47.1 % LV Ejection Fraction 2C AL 50.1 % LA Diameter 4.0 cm LA Width 3.4 cm LA Height 5.0 cm RA Width 3.9 cm RA Height 4.2 cm Aorta at Sinotubular Diameter 2.9 cm M-MODE Aortic Annulus Diameter 3.0 cm LA Ao Ratio MM 1.4 MV E Point Septal Separation 0.7 cm DOPPLER Right Atrial Pressure 3.0 mmHg FINDINGS Left Ventricle Normal LV size with ejection fraction around 60% . The segmental wall motion analysis difficult because of the poor ultrasonic window. No gross abnormalities noted. Right Ventricle Normal right ventricular size and systolic function. Right Atrium Possibly of normal size Left Atrium Mildly increased left atrial size. Mitral Valve Mild mitral annular calcification. Aortic Valve Thickened aortic valve. Tricuspid Valve Tricuspid valve not well visualized. Pulmonic Valve Pulmonic valve not well visualized. Pericardium Normal pericardium without effusion. Aorta Normal ascending aorta dimension. CONCLUSIONS Normal LV size with ejection fraction around 60% . The segmental wall motion analysis difficult because of the poor ultrasonic window. No gross abnormalities noted. Mildly increased left atrial size. Thickened aortic valve. Mild mitral annular calcification. There is no pericardial effusion. There are no intracardiac masses. Comparison with the previous study is difficult because of the difference in the technical quality. Dr Dick Cordova MD [facility] (Electronically Signed) Final Date: 15 January 2022 17:58 S
== END 2022-01-15 13:51 | disposition home or self-care (01) ==
LOC: RAD 14:03
PROVIDERS: PCP Electrodiagnostic Medicine; Visit Provider Internal Medicine Medical Oncology
DX: Z79.899 Other long term (current) drug therapy (principal); I08.0 Rheumatic disorders of both mitral and aortic valves
CPT/HCPCS: 93308

== ENCOUNTER 2022-01-16 14:35 | Outpatient (CLI) | payer MEDICARE, SELFPAY ==
--- NOTE | 2022-01-16 14:55 | XR_ITS ---
WS: [id number] PA and lateral chest, 01/16/2022 Clinical Data: BRONCHITIS, CHRONIC, DYSPNEA, COUGH Comparison: PA and lateral chest, 08/12/2021. Findings: No nodules, masses or effusions are seen. The heart is enlarged. The pulmonary vascularity is not remarkable. No pneumonia or pneumothorax is present. The aortic arch is tortuous. There is a l eft subclavian catheter which enters the superior vena cava and there is a stent within the left bra chiocephalic vein. There are surgical clips in the left upper quadrant and right upper quadrant. XR/XR chest 2V* [id number] Impression: 1. Cardiomegaly. 2. Atherosclerosis.
== END 2022-01-16 14:36 | disposition home or self-care (01) ==
LOC: RAD 14:46
PROVIDERS: PCP Electrodiagnostic Medicine; Visit Provider Electrodiagnostic Medicine
DX: J42 Unspecified chronic bronchitis (principal); R06.00 Dyspnea, unspecified; R05.9 Cough, unspecified; I51.7 Cardiomegaly; I70.90 Unspecified atherosclerosis
CPT/HCPCS: 71046

== ENCOUNTER 2022-01-17 11:25 | Outpatient (CLI) | payer MEDICARE, SELFPAY ==
[2022-01-17 12:21] LABS: Basophils # 0.1 10^3/uL (0.0-0.1); Basophils % 0.8 %; Eosinophils # 0.7 10^3/uL (0.0-0.8); Eosinophils % 11.6 %; Hematocrit 34.2 % (37.0-47.0); Hemoglobin 10.7 g/dL (11.5-15.3); Lymphocytes # 1.3 10^3/uL (0.8-4.8); Mean Corpuscular HGB Conc 31.3 g/dL (30.0-36.0); Mean Corpuscular Hemoglobin 31.1 pg (28.0-34.0); Mean Corpuscular Volume 99.4 fl (81-99); Mean Platelet Volume 12.5 fL (7.4-10.4); Monocytes # 0.7 10^3/uL (0.2-0.9); Monocytes % 10.9 %; Neutrophils # 3.31 10^3/uL (1.8-7.7); Neutrophils % 54.7 %; Nucleated Red Blood Cells % 0.7 %; Platelet Count 156 10^3/cmm (130-400); Red Blood Count 3.44 10^6/uL (4.1-5.3); Red Cell Distribution Width 13.5 % (12.1-15.1); White Blood Count 6.1 10^3/uL (4.0-10.0)
[2022-01-17 12:44] LABS: Alanine Aminotransferase 19 U/L (0-33); Albumin Level 3.5 g/dL (3.5-5.2); Alkaline Phosphatase 71 IU/L (35-105); Anion Gap 12.4 (5-19); Aspartate Amino Transferase 21 U/L (0-32); Blood Urea Nitrogen 12 mg/dL (8-23); Carbon Dioxide 22 mmol/L (22-29); Chloride 110 mmol/L (98-107); Globulin 1.8 g/dL (1.3-4.6); Glomerular Filtration Rate 54.8 mL/min (90-130); Glucose 192 mg/dL (65-115); Osmolality Calculated 295 mOsm/kg (285-295); Potassium 4.4 mmol/L (3.5-5.1); Sodium 140 mmol/L (136-145); Total Bilirubin 0.3 mg/dL (0.15-1.2); Total Protein 5.3 g/dL (6.6-8.7)
== END 2022-01-17 11:26 | disposition home or self-care (01) ==
LOC: ONCMED 11:26
PROVIDERS: PCP Electrodiagnostic Medicine; Visit Provider Internal Medicine Medical Oncology
DX: C90.00 Multiple myeloma not having achieved remission (principal); C79.51 Secondary malignant neoplasm of bone; D47.2 Monoclonal gammopathy; D50.9 Iron deficiency anemia, unspecified; E83.51 Hypocalcemia; R22.0 Localized swelling, mass and lump, head
CPT/HCPCS: 36591; 80053; 85025

== ENCOUNTER 2022-01-20 09:04 | Outpatient (CLI) | payer MEDICARE, SELFPAY ==
[2022-01-20] MEDS: sodium chloride 0.9% 500 ML 999 ML IV (10:17)
[2022-01-20] MEDS: acetaminophen 325 mg Tablet 650 MG PO (10:32)
[2022-01-20] MEDS: sodium chloride 0.9% 250 ML 999 ML IV (12:09)
--- NOTE | 2022-01-20 13:53 | ONC FU_ITS ---
Dr. Rodriguez Patient Follow-Up Note Patient: Valentin Clark Unit #: [id number]: [id number] Dicatated By: Ruiz Rodriguez M.D.Date of Visit:Jan 20, 2022 Onc Med Follow-up/Prog Note Chief Complaint: Mulitple myeloma. 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 In March 2018 she had bumped her head at work and in the process of that she became aware of a small lump, though it was actually in a slightly different area. She then noticed that the lump was getting larger. Evaluation with head MRI on 06/07/2018 showed evidence of a right parietal occipital extra-axial neoplasm, felt to be most likely meningeal in origin. It was noted to exert mass effect on the right parietal and occipital lobes, but without associated midline shift or white matter parenchymal edema. The lesion was noted to invade through the calvarium and into the subcutaneous parietal occipital scalp soft tissues. The mass measured 5.7 x 3.5 x 6 cm. 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 The area of occlusion was noted to extend over approximately 4.3 cm. She was seen by Dr. Landry and subsequently referred for neurosurgery evaluation at [facility]. Initially they had considered possible surgical resection. Her further evaluation there apparently included laboratory findings which were suspicious for myeloma, and it was recommended that she have treatment with radiation. She was seen here for further management on 07/14/2018. She then returned to Dr. Landry, and on 07/20/2018 she underwent open biopsy/resection of the extracranial extent of the mass. 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 Her further evaluation included protein electrophoresis which showed an IgG lambda monoclonal protein in the serum quantitating at 0.48 g/dL. The serum free light chain assay showed elevated lambda light chain at 374.65 mg/L with decreased kappa/lambda ratio at 0.06. The 24-hour urine protein electrophoresis showed no monoclonal protein. There were no other areas of lytic bone involvement noted on her skeletal survey. Bone marrow aspiration/biopsy on 07/30/2018 showed a monotypic plasma cell population, but it comprised only 2% of the total cellularity. A FISH panel for myeloma was unrevealing, and the standard chromosome analysis was normal. She was referred to Dr. Kaur, and she began radiation to the lesion on 07/30/2018. She completed treatment on 09/02/2018 to a total dose of 5,000 cGy. She had evaluation with CT pulmonary angiogram on 09/14/2018. It showed moderate bilateral pulmonary embolic burden. She began on anticoagulation with apixaban. During her subsequent follow-up she continued to have an open wound at the site of the plasmacytoma in the parietal-occipital scalp region. As of her follow-up visit on 10/19/2018 her M protein was stable 0.37 g/dL. In the absence of any evidence of symptomatic myeloma, she had otherwise just continued on observation/expectant management. However, due to her persistent scalp wound she had a repeat brain MRI on 01/11/2019. It showed evidence of residual neoplastic process at the resection site. There was associated dural involvement but with improved signal characteristics and decreased enhancement compared to the study from September 2018. She had further evaluation with PET/CT on 02/03/2019. It showed increase in size and expansile hypermetabolic lesion within the left ilium with extension of hypermetabolic tumor into the adjacent left iliac muscle. There was a new hypermetabolic lytic process within the right S1/S2 region. A large lytic mass within the posterior calvarium did not appear to have active hypermetabolism. Also noted, though, was a hypermetabolic lesion within the medullary canal of the distal left femoral diametaphysis and an additional hypermetabolic focus in the anterior cortex of the distal right femur concerning for additional areas of myeloma. In the setting of obvious progression of her myeloma, she began treatment with VRd on 02/23/2019. At that time she also received an infusion of IV Zometa for the lytic bone involvement. She experienced multiple toxicities with the VRd regimen, requiring dose reductions and treatment delays. Beginning with cycle 4, in June 2019 the Velcade was dropped from the regimen, and the following month her treatment was put on hold due to multiple toxicities, mainly severe fatigue and excessive somnolence. She was found to have a low B12 level, for which she began on B12 replacement therapy. At her follow-up visit on 11/28/2019 she was still mildly anemic, and transferrin saturation was still low at 17% despite being on oral iron replacement. As such, she was then given parenteral iron replacement with infusions of Injectafer on 11/28/2019 and on 12/05/2019. With the 11/28 visit she also was given denosumab 120 mg by subcutaneous injection for the lytic bone involvement. On 12/06/2019 she was admitted to the hospital with symptomatic hypocalcemia, serum calcium 5.9 mg/dL with albumin 2.9 g/dL. Renal function was stable with creatinine 1.0 mg/dL, but her potassium also was low at 3.2 mmol/L. She was given IV calcium and potassium replacement. She then continued further IV replacement as an outpatient. Despite that she was readmitted to the hospital with hypocalcemia on 12/15/2019. She was discharged home on 12/23/2019. Her evaluation included CT pulmonary angiogram which showed no evidence of pulmonary embolism. There was evidence of cardiomegaly, a small pericardial effusion, and small bilateral pleural effusions. Echocardiogram showed small, hemodynamically insignificant pericardial effusion and normal left ventricular function. She then returned here on 12/27/2019 and she then continued IV fluid and electrolyte replacement, daily for the first week and then on Mondays, Wednesdays, and Fridays. Despite that, she continued to feel weak and shaky, and she had ongoing complaints of nausea and anorexia. She continued to require IV fluid and electrolyte replacement but she did show gradual recovery. Her further treatment remained on hold. Repeat protein electrophoresis on 01/16/2020 showed stable M protein at 0.4 g/dL. The serum free light chain assay showed elevated free lambda light chain at 254 mg/L with decreased kappa/lambda ratio at 0.16. There was no monoclonal protein identified in the 24-hour urine protein electrophoresis. Restaging PET/CT on 02/24/2020 showed findings concerning for disease progression with new areas of marrow hypermetabolism within the right proximal humerus and within the bilateral distal femoral diametaphysis. The existing areas of involvement within the left ilium and sacrum showed further decrease in FDG uptake. With those findings, I had recommended that she proceed to second line treatment with daratumumab/dexamethasone. She eventually was able to begin her initial infusion of daratumumab on 03/21/2020. Her repeat free light chain assay prior to that showed further increase in the lambda light chain to 537 mg/L with kappa/lambda ratio 0.06. She tolerated the daratumumab with no adverse effects, and she then continued treatment weekly. On 05/03/2020 she underwent EGD and colonoscopy by Dr. Jimenes. The EGD showed no significant abnormal findings, and the colonoscopy showed just 2 small polyps in the rectum. 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 Her repeat head MRI on 06/05/2020 showed significant progression of the myelomatous lesions within the skull compared to the study from January 2020. Numerous calvarial lesions were noted to be present, the largest in the right parietal bone measuring 2.2 cm. The postoperative resection site in the posterior right parietal lobe showed significantly more enhancement with slightly more dural enhancement, also suspicious for progression of neoplastic changes. With that finding, she had continued the daratumumab and dexamethasone, but beginning on 06/27/2020 I added pomalidomide at a reduced dosage of 2 mg daily on a 21/-day schedule. Her repeat PET/CT on 07/12/2020 showed a large lytic lesion within the posterior right calvarium, but without associated hypermetabolism. There were no new lesions identified within the calvarium. There was persistent hypermetabolism noted within the proximal right humerus, SUV 3.6, and there was new hypermetabolism within the marrow of the proximal left humerus, SUV 3.6. There was decrease in FDG uptake within the medial left ilium. There was persistent hypermetabolism noted in the right femoral diametaphysis and in the distal left femoral diametaphysis. There was new hypermetabolism noted in the proximal left tibia. Overall the findings were concerning for disease progression, and she was recommended to undergo a trial of salvage therapy with belantamab [id number]. On 08/29/2020 she began cycle 1 of belantamab [id number]. She tolerated the initial infusion without acute toxicity. She continued with cycle 2 on 09/19/2020. Her further management was then complicated by COVID-19 virus infection and by left upper extremity deep vein thrombosis for which she underwent revascularization of the left innominate vein and manual thrombectomy of the left subclavian vein. She was then able to continue the belantamab-mafodotin at 3-week intervals. As of 02/11/2021 she had completed her 5th cycle. Her further treatment was then put on hold due to visual symptoms, though her repeat eye exam in February had shown only grade 1 changes. Repeat head MRI on 02/26/2021 showed no evidence of recurrent or progressed disease. There is stable enhancement about the resection cavity in the right parieto-occipital area. Multiple enhancing myelomatous lesions involving the underlying calvarium appeared stable. The largest was in the right parietal calvarium measuring 1.8 cm. 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 There was associated encephalomalacia and gliosis. Restaging PET/CT on 03/15/2021 showed a small focus of increased tracer accumulation in the soft tissues/bone marrow of the right posterior skull with maximum SUV 4.70. That area had not been included on the previous study, so it could not be compared. However, the appearance was consistent with residual myeloma. Also noted was stable mild increased metabolic activity in the left proximal humerus with maximum SUV 3.03. There was no focal increase in the right proximal humerus, noted to have resolved compared to the prior study. Also noted was resolution of previously described metabolic increased activity in the left proximal fibula and in both distal femoral metadiaphyses. Overall the study was noted to be significantly improved. As of her follow-up visit on 05/07/2021 she was showing some decline in performance status. She reported having new pain in her back and she reported increased pain in her right shoulder. MRI of the right shoulder on 05/27/2021 showed an enhancing intramedullary lesion centered in the right humeral head measuring 3.5 x 1.9 cm. A smaller adjacent satellite lesion was noted to extend towards the greater tuberosity. The findings were most consistent with metastatic sites from the myeloma. She was seen by Dr. Bah for palliative radiation. She had had further evaluation with MRI of the left shoulder which showed an intramedullary T2 hyperintense enhancing lesion in the left humeral head measuring 2.6 x 2.1 x 4.1 cm. With those findings, she underwent palliative radiation to the right shoulder. Treatment was completed on 07/08/2021 to a total dose of 3000 cGy administered in 10 fractions. Repeat head MRI on 07/24/2021 showed stable postoperative findings associated with the previous right parietal occipital craniectomy. Enhancing myelomatous calvarial lesions, the largest in the right parietal calvarium measuring 1.8 cm, also appeared stable. There was no evidence for recurrent or progressed parenchymal disease. However, with evidence of disease progression by PET/CT she was recommended to begin further treatment with carfilzomib/dexamethasone. Her other medical illnesses include hypertension and degenerative arthritis/degenerative disease of the spine. She has associated cervical and lumbar spinal stenosis. She has a history of endometriosis, and she has anxiety/depression. She is a nonsmoker. INTERIM HISTORY: On 07/25/2021 she began cycle 1 of carfilzomib/dexamethasone. The carfilzomib was administered on a standard day 1/2, day 8/9, and day 15/16 schedule to minimize the risk of toxicity. Her baseline echocardiogram showed adequate LV function with estimated ejection fraction at 60%. At day 8 she reported increased shortness of breath. A CT pulmonary angiogram showed no evidence of pulmonary emboli or other acute pathology. She was then able to complete that full cycle of treatment. Restaging PET/CT on 08/16/2021 showed stable left proximal humerus bone mineral tumor involvement. There was improvement in the appearance of the right posterior calvarial lesion with SUV activity consistent with inflammatory changes. There was no evidence for disease progression. She then continued with cycle 2 on 08/21/2021. At cycle 2-day 8 she was reporting fatigue and shortness of breath, but she was able to continue her treatment. Her symptoms, though, continued to worsen, and her treatment was then put on hold. During subsequent follow-up, she was feeling better, and she was able to continue with cycle 3 on 09/16/2021. With that cycle, her carfilzomib was changed to weekly on a 3-week on/1 week off schedule. She tolerated that treatment with acceptable toxicity, and she then continued with cycle 4 on 10/14/2021. Her protein electrophoresis at that point showed M protein decreased to 0.1 g/dL. Her serum free light chain assay showed a free kappa light chain of 15.2 mg/L, free lambda light chain 26.0 mg/L, and normal kappa/lambda ratio 0.58. She was able to complete the full cycle of treatment, and she then began cycle 5 on 11/11/2021. Her cycle 5-day 15 treatment was not administered, apparently due to scheduling issues. She continued with cycle 6 on 12/09/2021. Her M protein remained stable at 0.1 g/dL. Her free lambda light chain was up slightly at 36.2 mg/L with kappa/lambda ratio 0.39. Her repeat head MRI on 12/25/2021 showed stable postoperative changes of right parietal occipital craniectomy with no evidence of recurrent or progressed parenchymal disease. There was stable enhancement about the resection cavity. There was decrease in the size of the largest enhancing myelomatous calvarial lesion measuring 1.3 cm. With those findings, she continued with cycle 7 of carfilzomib/dexamethasone on 01/06/2022. Her M protein at that point was stable at 0.1 g/dL. Her free light chain assay showed slightly elevated free lambda light chain at 38.9 mg/L with free kappa light chain 11.4 mg/L and kappa/lambda ratio 0.29. Her echocardiogram on 01/15/2022 showed normal left ventricular ejection fraction at 60%. She is seen for a follow-up visit. She felt bad after her day 8 treatment last week, mainly due to cough and increased shortness of breath. She had seen Dr. Jimenes and she was treated with antibiotic. She says she is feeling better now. She does have fatigue, but she is doing housework and she is also packing for her move. ECOG score is 1. She does not have much appetite, but that is chronic. She has not had fever or night sweats. She has had sinus drainage. She has not had sore mouth or throat. Her cough has pretty much resolved and her breathing is better now. She has not been having chest pain. She did have a negative stress test. She has been having postprandial bloating. Her bowels have been loose, attributable to the antibiotic. She has frequent urination. She continues to have some pain in the right shoulder. She currently is not having any other significant bone pain. She does not complain of headache or dizziness, and she has no focal neurologic symptoms. Medications: Albuterol Sulfate HFA Aerosol, solution Inhalation PRN, Arthritis Pain Reliever 2 Gm/60mL (of 1 %) Gel (jelly) Topical PRN, Aspirin 1 Tablet (of 81 mg) Tablet, chewable Oral daily, B-12 Dots 1 Tablet (of 500 mcg) Tablet Dispersable Oral daily, Claritin 1 Capsule (of 10 mg) Oral daily PRN, Dexamethasone (4 mg) Tablet Oral Take as Directed, Doxycycline Hyclate (100 mg) Tablet Oral b.i.d., Eliquis 1 Tablet (of 5 mg) Oral b.i.d., FLUoxetine HCl 1 Tablet (of 10 mg) Oral daily, FLUoxetine HCl 1 Capsule (of 20 mg) Oral daily, hydrALAZINE HCl 2 Tablet (of 25 mg) Oral t.i.d., HYDROcodone-Acetaminophen 1 - 2 Tablet (of 5-325 mg) Oral q 4 to 6 hours PRN, Lasix 1 - 2 Tablet (of 40 mg) Oral PRN, LORazepam 1 Tablet (of 0.5 mg) Oral b.i.d. PRN, Metoprolol Tartrate (25 mg) Tablet Oral Take as Directed, Mupirocin (2 %) Ointment Topical Take as Directed, Probiotic Capsule Oral b.i.d., RA Senna 1 Capsule (of 8.6 mg) Oral daily PRN, Vitamin D3 Super Strength 1 Capsule (of 50 mcg ) Oral b.i.d., Zofran (4 mg) Tablet Oral Take as Directed Allergies: BusPIRone HCl, Codeine and Related, Levaquin, and Morphine Derivatives. Vital Signs: Performed on Jan 20, 2022 09:40 Height - 63.50 in Weight - 211.8 lbs (HIGH) BSA - 1.99 sq.m BMI - 36.93 (HIGH) Temperature - 98.2 F (LOW) Pulse - 74 /min Respiration - 18 /min BP - 148/78 mm(hg) (HIGH) O2 Sat - 96 % Pain - 0 Fatigue - 5 Physical Examination: Constitutional - She looks pretty good generally, Eyes - Sclerae nonicteric. Conjunctivae clear, ENMT - No lesions noted in the oral cavity, Hematologic/Lymphatic - No cervical, clavicular, or axillary adenopathy, Respiratory - Lungs sound clear, Cardiovascular - Heart rhythm is regular. There is a II/ systolic murmur. There is no gallop or rub noted, Abdomen - Mildly distended. Liver and spleen are not enlarged. There is no abdominal mass or ascites noted and there is no inguinal adenopathy, Extremities - No edema, Neurologic - No focal neurologic deficits noted. Lab/Imaging: Test performed on Jan 17, 2022 12:10 Sodium 140 mmol/L Potassium 4.4 mmol/L Chloride 110 mmol/L CO2 22 mmol/L Anion Gap 12.4 BUN 12 mg/dL Creatinine 1.0 mg/dL Cr Clearance (Est) 77.0700 mL/min eGFR 54.8 mL/min Glucose 192 mg/dL Osmolality - Calculated 295 mOsm/kg Calcium 8.0 mg/dL Protein, Total 5.3 g/dL Albumin 3.5 g/dL Globulin 1.8 g/dL Bilirubin, Total 0.3 mg/dL ALT (SGPT) 19 U/L AST (SGOT) 21 U/L Alkaline Phosphatase 71 IU/L WBC 6.1 10 3/uL RBC 3.44 10 6/uL HGB 10.7 g/dL HCT 34.2 % MCV 99.4 fl MCH 31.1 pg MCHC 31.3 g/dL RDW 13.5 % Platelet Count 156 10 3/cmm MPV 12.5 fL Neutrophils 3.31 10 3/uL Lymphocytes 1.3 10 3/uL Monocytes 0.7 10 3/uL Eosinophils 0.7 10 3/uL Basophils 0.1 10 3/uL Neutrophil % 54.7 % Lymphocyte % 21.0 % Monocyte % 10.9 % Eosinophil % 11.6 % Basophils % 0.8 % NRBC % 0.7 % Problem List: 1. IgG lambda myeloma presenting with plasmacytoma involving the right parietal-occipital extra-axial space. She underwent resection/open biopsy of the extracranial portion of the mass on 07/20/2018. 2. She has persistent open wound at the biopsy site. 3. She has had thromboembolism with pulmonary emboli documented by CT pulmonary angiogram on 09/14/2018. She developed left upper extremity deep vein thrombosis in October 2020 in association with COVID-19 virus infection. She required hospitalization in November 2020 for revascularization of the left innominate vein and manual thrombectomy of the left subclavian vein. 4. Degenerative arthritis and degenerative disease of the spine with associated cervical and lumbar spinal stenosis. 5. Hypertension. 6. Endometriosis. 7. Anxiety/depression. Problems Addressed with this Encounter and Plan: 1. Patient with IgG lambda myeloma presenting with plasmacytoma involving the right parietal-occipital extra-axial space. She underwent resection/open biopsy of the extracranial portion of the mass on 07/20/2018. She then underwent radiation, completed on 09/02/2018 to a total dose of 5000 cGy. She had associated IgG lambda monoclonal protein in the serum and 2% monoclonal plasma cells in the bone marrow, consistent with underlying myeloma. Initially it appeared to otherwise not be symptomatic, and she was followed expectantly following completion of the radiation. By January 2019 she had developed increasing pain in the left hip/buttock area. Her repeat protein electrophoresis studies showed only a slight increase in her M protein, but her repeat PET/CT on 02/03/2019 showed significant progression of lytic bone involvement in the left ilium. There was also possible involvement in the distal right femur. The area of lytic involvement in the calvarium was not metabolically active. Her subsequent myeloma therapies included: 1. Velcade/Revlimid/dexamethasone beginning 02/23/2019. She had multiple toxicities, requiring dose reductions and treatment delays. As of July 2019 she was transitioned to maintenance Revlimid at 5 mg daily. 2. Second line treatment with daratumumab/dexamethasone began 03/21/2020. As of 06/27/2020 pomalidomide was added at a reduced dosage. She tolerated the pomalidomide very poorly due to [employer] side effects. Treatment was then stopped due to evidence of disease progression by PET/CT on 07/12/2020. 3. She began salvage therapy with belantamab mafodotin 08/29/2020. That treatment was interrupted when she was confirmed to have COVID-19 virus infection following the 2nd cycle. It was restarted in December 2020. It was stopped after the 5th cycle, administered on 02/11/2021, due to visual changes. She appeared to have significant response by follow-up PET/CT on 03/15/2021. However, with her persistent visual symptoms, she opted to remain off treatment. During subsequent follow-up she had reported increasing pain in the right shoulder. 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 She was given palliative radiation to the right shoulder, completed on 07/08/2021 to a total dose of 3000 cGy, ministered in 10 fractions. She had some improvement in the pain with the radiation. Despite having evidence of progression of myelomatous bone involvement, her M protein was stable at 0.2 g/dL and her lambda free light chain had increased only slightly, to 32.6 mg/L, with kappa/lambda ratio normal at 0.54. On 07/25/2021 she began further treatment with carfilzomib/dexamethasone with the carfilzomib administered daily for 2 days on a 3-week out of 4 schedule. She was able to complete one full cycle of treatment, though during that time she complained of increasing fatigue and shortness of breath. She was evaluated with CT pulmonary angiogram, which showed no evidence of pulmonary emboli or other acute pathology. 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 There was no evidence of disease progression. She continued with cycle 2 on 08/21/2021. Echocardiogram at that point showed normal left ventricular function with estimated ejection fraction at 60%. Her treatment was put on hold following the day 8/day 9 carfilzomib infusions. She was able to restart treatment with cycle 3 on 09/16/2021 with the carfilzomib administered weekly on a 3-week on/1 week off schedule. She tolerated it well, and she then continued with cycle 4 on 10/14/2021, with cycle 5 on 11/11/2021, and with cycle 6 on 12/09/2021. At that point her disease appeared stable with her M protein stable at 0.1 g/dL and with her free lambda light chain basically stable at 36.2 mg/L. She continued with cycle 7 of carfilzomib/dexamethasone on 01/06/2022. She reported cough and increased shortness of breath following her day 8 treatment, but those symptoms have improved on antibiotic therapy. She has otherwise remained stable clinically. As such, she will proceed with her cycle 7-day 15 carfilzomib/dexamethasone. She returns in 2 weeks. 2. 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 3. In October 2020 she developed left upper extremity deep vein thrombosis in association with COVID-19 virus infection. She remains on anticoagulation with apixaban. Signed By: Ruiz Rodriguez M.D. <<Signature on File>>
== END 2022-01-20 09:05 | disposition home or self-care (01) ==
PROVIDERS: PCP Electrodiagnostic Medicine; Visit Provider Internal Medicine Medical Oncology
DX: Z51.11 Encounter for antineoplastic chemotherapy (principal); C90.00 Multiple myeloma not having achieved remission; C90.20 Extramedullary plasmacytoma not having achieved remission; I10 Essential (primary) hypertension; F41.9 Anxiety disorder, unspecified; F32.A Depression, unspecified; Z79.899 Other long term (current) drug therapy; Z86.718 Personal history of other venous thrombosis and embolism; Z86.16 Personal history of COVID-19
CPT/HCPCS: 96361; 96413; 99215; J7040; J7050; J9047

== ENCOUNTER 2022-01-21 13:28 | Outpatient (CLI) | payer MEDICARE, SELFPAY | END 2022-01-21 13:29 | disposition home or self-care (01) | LOC: WOUND 13:29 | PROVIDERS: PCP Electrodiagnostic Medicine; Visit Provider Emergency Medicine | DX: I96 Gangrene, not elsewhere classified (principal); L98.492 Non-pressure chronic ulcer of skin of other sites with fat layer exposed | CPT/HCPCS: 11042 ==

== ENCOUNTER 2022-02-03 08:14 | Outpatient (CLI) | payer MEDICARE, SELFPAY ==
[2022-02-03 08:47] LABS: Basophils # 0.1 10^3/uL (0.0-0.1); Basophils % 2.2 %; Eosinophils # 0.2 10^3/uL (0.0-0.8); Eosinophils % 3.2 %; Hematocrit 35.2 % (37.0-47.0); Hemoglobin 11.1 g/dL (11.5-15.3); Lymphocytes # 1.4 10^3/uL (0.8-4.8); Lymphocytes % 27.2 %; Mean Corpuscular HGB Conc 31.5 g/dL (30.0-36.0); Mean Corpuscular Hemoglobin 31.6 pg (28.0-34.0); Mean Corpuscular Volume 100.3 fl (81-99); Mean Platelet Volume 11.1 fL (7.4-10.4); Monocytes # 0.6 10^3/uL (0.2-0.9); Monocytes % 12.1 %; Neutrophils # 2.78 10^3/uL (1.8-7.7); Neutrophils % 55.1 %; Nucleated Red Blood Cells % 0 %; Platelet Count 277 10^3/cmm (130-400); Red Blood Count 3.51 10^6/uL (4.1-5.3); Red Cell Distribution Width 14.2 % (12.1-15.1)
[2022-02-03 09:10] LABS: Alanine Aminotransferase 23 U/L (0-33); Albumin Level 3.9 g/dL (3.5-5.2); Alkaline Phosphatase 68 IU/L (35-105); Aspartate Amino Transferase 18 U/L (0-32); Blood Urea Nitrogen 12 mg/dL (8-23); Calcium 9.5 mg/dL (8.5-10.5); Carbon Dioxide 26 mmol/L (22-29); Globulin 1.5 g/dL (1.3-4.6); Glucose 95 mg/dL (65-115); Total Bilirubin 0.4 mg/dL (0.15-1.2)
[2022-02-03 09:47] LABS: Osmolality Calculated 294 mOsm/kg (285-295); Sodium 142 mmol/L (136-145)
[2022-02-03 10:03] LABS: Anion Gap 13.9 (5-19); Chloride 106 mmol/L (98-107); Potassium 3.9 mmol/L (3.5-5.1)
[2022-02-03 10:04] LABS: Immunoglobulin IGA 24 mg/dL (70-400); Immunoglobulin IGG 272 mg/dL (700-1600); Immunoglobulin IGM 6 mg/dL (40-230); Total Protein 5.4 g/dL (6.6-8.7)
[2022-02-03] MEDS: sodium chloride 0.9% 250 ML IV (10:05)
[2022-02-03 10:13] LABS: Add Urine Microscopic? NO; Charge for UA Resulting for Rev
[2022-02-03 10:23] LABS: Bilirubin Urine Neg (Negative); Blood Urine Neg (Negative); Glucose Urine UA Norm (Normal); Ketones Urine Negative (Negative); Leukocyte Esterase Urine Negative (Negative); Nitrate Urine Negative (Negative); Protein Urine Neg (Negative); Urine Appearance Clear (CLEAR); Urine Color Yellow (Yellow); Urobilinogen Urine Norm (Negative); pH Urine 5 (5-7)
[2022-02-03] MEDS: sodium chloride 0.9% 500 ML 999 ML IV (11:36)
[2022-02-04 07:38] LABS: PROTEIN, TOTAL 5.2 g/dL (6.1-8.1)
[2022-02-04 11:54] LABS: KAPPA LIGHT CHAIN, FREE, SERUM 13.3 mg/L (3.3-19.4); KAPPA/LAMBDA LIGHT CHAINS FREE 0.36 (0.26-1.65)
[2022-02-04 16:08] LABS: ABNORMAL PROTEIN BAND 1 0.2 g/dL (NONE DETECTED); ALBUMIN 3.4 g/dL (3.8-4.8); ALPHA 1 GLOBULIN 0.3 g/dL (0.2-0.3); ALPHA 2 GLOBULIN 0.7 g/dL (0.5-0.9); BETA 1 GLOBULIN 0.4 g/dL (0.4-0.6); BETA 2 GLOBULIN 0.2 g/dL (0.2-0.5); GAMMA GLOBULIN 0.3 g/dL (0.8-1.7)
--- NOTE | 2022-02-07 15:47 | ONC FU_ITS ---
Dr. Rodriguez Patient Follow-Up Note Patient: Valentin Clark Unit #: [id number]: 1950 Dicatated By: Ruiz Rodriguez M.D.Date of Visit:Feb 03, 2022 Onc Med Follow-up/Prog Note Chief Complaint: Mulitple myeloma. 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 In March 2018 she had bumped her head at work and in the process of that she became aware of a small lump, though it was actually in a slightly different area. She then noticed that the lump was getting larger. Evaluation with head MRI on 06/07/2018 showed evidence of a right parietal occipital extra-axial neoplasm, felt to be most likely meningeal in origin. It was noted to exert mass effect on the right parietal and occipital lobes, but without associated midline shift or white matter parenchymal edema. The lesion was noted to invade through the calvarium and into the subcutaneous parietal occipital scalp soft tissues. The mass measured 5.7 x 3.5 x 6 cm. 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 The area of occlusion was noted to extend over approximately 4.3 cm. She was seen by Dr. Landry and subsequently referred for neurosurgery evaluation at [facility]. Initially they had considered possible surgical resection. Her further evaluation there apparently included laboratory findings which were suspicious for myeloma, and it was recommended that she have treatment with radiation. She was seen here for further management on 07/14/2018. She then returned to Dr. Landry, and on 07/20/2018 she underwent open biopsy/resection of the extracranial extent of the mass. 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 Her further evaluation included protein electrophoresis which showed an IgG lambda monoclonal protein in the serum quantitating at 0.48 g/dL. The serum free light chain assay showed elevated lambda light chain at 374.65 mg/L with decreased kappa/lambda ratio at 0.06. The 24-hour urine protein electrophoresis showed no monoclonal protein. There were no other areas of lytic bone involvement noted on her skeletal survey. Bone marrow aspiration/biopsy on 07/30/2018 showed a monotypic plasma cell population, but it comprised only 2% of the total cellularity. A FISH panel for myeloma was unrevealing, and the standard chromosome analysis was normal. She was referred to Dr. Kaur, and she began radiation to the lesion on 07/30/2018. She completed treatment on 09/02/2018 to a total dose of 5,000 cGy. She had evaluation with CT pulmonary angiogram on 09/14/2018. It showed moderate bilateral pulmonary embolic burden. She began on anticoagulation with apixaban. During her subsequent follow-up she continued to have an open wound at the site of the plasmacytoma in the parietal-occipital scalp region. As of her follow-up visit on 10/19/2018 her M protein was stable 0.37 g/dL. In the absence of any evidence of symptomatic myeloma, she had otherwise just continued on observation/expectant management. However, due to her persistent scalp wound she had a repeat brain MRI on 01/11/2019. It showed evidence of residual neoplastic process at the resection site. There was associated dural involvement but with improved signal characteristics and decreased enhancement compared to the study from September 2018. She had further evaluation with PET/CT on 02/03/2019. It showed increase in size and expansile hypermetabolic lesion within the left ilium with extension of hypermetabolic tumor into the adjacent left iliac muscle. There was a new hypermetabolic lytic process within the right S1/S2 region. A large lytic mass within the posterior calvarium did not appear to have active hypermetabolism. Also noted, though, was a hypermetabolic lesion within the medullary canal of the distal left femoral diametaphysis and an additional hypermetabolic focus in the anterior cortex of the distal right femur concerning for additional areas of myeloma. In the setting of obvious progression of her myeloma, she began treatment with VRd on 02/23/2019. At that time she also received an infusion of IV Zometa for the lytic bone involvement. She experienced multiple toxicities with the VRd regimen, requiring dose reductions and treatment delays. Beginning with cycle 4, in June 2019 the Velcade was dropped from the regimen, and the following month her treatment was put on hold due to multiple toxicities, mainly severe fatigue and excessive somnolence. She was found to have a low B12 level, for which she began on B12 replacement therapy. At her follow-up visit on 11/28/2019 she was still mildly anemic, and transferrin saturation was still low at 17% despite being on oral iron replacement. As such, she was then given parenteral iron replacement with infusions of Injectafer on 11/28/2019 and on 12/05/2019. With the 11/28 visit she also was given denosumab 120 mg by subcutaneous injection for the lytic bone involvement. On 12/06/2019 she was admitted to the hospital with symptomatic hypocalcemia, serum calcium 5.9 mg/dL with albumin 2.9 g/dL. Renal function was stable with creatinine 1.0 mg/dL, but her potassium also was low at 3.2 mmol/L. She was given IV calcium and potassium replacement. She then continued further IV replacement as an outpatient. Despite that she was readmitted to the hospital with hypocalcemia on 12/15/2019. She was discharged home on 12/23/2019. Her evaluation included CT pulmonary angiogram which showed no evidence of pulmonary embolism. There was evidence of cardiomegaly, a small pericardial effusion, and small bilateral pleural effusions. Echocardiogram showed small, hemodynamically insignificant pericardial effusion and normal left ventricular function. She then returned here on 12/27/2019 and she then continued IV fluid and electrolyte replacement, daily for the first week and then on Mondays, Wednesdays, and Fridays. Despite that, she continued to feel weak and shaky, and she had ongoing complaints of nausea and anorexia. She continued to require IV fluid and electrolyte replacement but she did show gradual recovery. Her further treatment remained on hold. Repeat protein electrophoresis on 01/16/2020 showed stable M protein at 0.4 g/dL. The serum free light chain assay showed elevated free lambda light chain at 254 mg/L with decreased kappa/lambda ratio at 0.16. There was no monoclonal protein identified in the 24-hour urine protein electrophoresis. Restaging PET/CT on 02/24/2020 showed findings concerning for disease progression with new areas of marrow hypermetabolism within the right proximal humerus and within the bilateral distal femoral diametaphysis. The existing areas of involvement within the left ilium and sacrum showed further decrease in FDG uptake. With those findings, I had recommended that she proceed to second line treatment with daratumumab/dexamethasone. She eventually was able to begin her initial infusion of daratumumab on 03/21/2020. Her repeat free light chain assay prior to that showed further increase in the lambda light chain to 537 mg/L with kappa/lambda ratio 0.06. She tolerated the daratumumab with no adverse effects, and she then continued treatment weekly. On 05/03/2020 she underwent EGD and colonoscopy by Dr. Jimenes. The EGD showed no significant abnormal findings, and the colonoscopy showed just 2 small polyps in the rectum. 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 Her repeat head MRI on 06/05/2020 showed significant progression of the myelomatous lesions within the skull compared to the study from January 2020. Numerous calvarial lesions were noted to be present, the largest in the right parietal bone measuring 2.2 cm. The postoperative resection site in the posterior right parietal lobe showed significantly more enhancement with slightly more dural enhancement, also suspicious for progression of neoplastic changes. With that finding, she had continued the daratumumab and dexamethasone, but beginning on 06/27/2020 I added pomalidomide at a reduced dosage of 2 mg daily on a 21/-day schedule. Her repeat PET/CT on 07/12/2020 showed a large lytic lesion within the posterior right calvarium, but without associated hypermetabolism. There were no new lesions identified within the calvarium. There was persistent hypermetabolism noted within the proximal right humerus, SUV 3.6, and there was new hypermetabolism within the marrow of the proximal left humerus, SUV 3.6. There was decrease in FDG uptake within the medial left ilium. There was persistent hypermetabolism noted in the right femoral diametaphysis and in the distal left femoral diametaphysis. There was new hypermetabolism noted in the proximal left tibia. Overall the findings were concerning for disease progression, and she was recommended to undergo a trial of salvage therapy with belantamab [id number]. On 08/29/2020 she began cycle 1 of belantamab [id number]. She tolerated the initial infusion without acute toxicity. She continued with cycle 2 on 09/19/2020. Her further management was then complicated by COVID-19 virus infection and by left upper extremity deep vein thrombosis for which she underwent revascularization of the left innominate vein and manual thrombectomy of the left subclavian vein. She was then able to continue the belantamab-mafodotin at 3-week intervals. As of 02/11/2021 she had completed her 5th cycle. Her further treatment was then put on hold due to visual symptoms, though her repeat eye exam in February had shown only grade 1 changes. Repeat head MRI on 02/26/2021 showed no evidence of recurrent or progressed disease. There is stable enhancement about the resection cavity in the right parieto-occipital area. Multiple enhancing myelomatous lesions involving the underlying calvarium appeared stable. The largest was in the right parietal calvarium measuring 1.8 cm. 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 There was associated encephalomalacia and gliosis. Restaging PET/CT on 03/15/2021 showed a small focus of increased tracer accumulation in the soft tissues/bone marrow of the right posterior skull with maximum SUV 4.70. That area had not been included on the previous study, so it could not be compared. However, the appearance was consistent with residual myeloma. Also noted was stable mild increased metabolic activity in the left proximal humerus with maximum SUV 3.03. There was no focal increase in the right proximal humerus, noted to have resolved compared to the prior study. Also noted was resolution of previously described metabolic increased activity in the left proximal fibula and in both distal femoral metadiaphyses. Overall the study was noted to be significantly improved. As of her follow-up visit on 05/07/2021 she was showing some decline in performance status. She reported having new pain in her back and she reported increased pain in her right shoulder. MRI of the right shoulder on 05/27/2021 showed an enhancing intramedullary lesion centered in the right humeral head measuring 3.5 x 1.9 cm. A smaller adjacent satellite lesion was noted to extend towards the greater tuberosity. The findings were most consistent with metastatic sites from the myeloma. She was seen by Dr. Bah for palliative radiation. She had had further evaluation with MRI of the left shoulder which showed an intramedullary T2 hyperintense enhancing lesion in the left humeral head measuring 2.6 x 2.1 x 4.1 cm. With those findings, she underwent palliative radiation to the right shoulder. Treatment was completed on 07/08/2021 to a total dose of 3000 cGy administered in 10 fractions. Repeat head MRI on 07/24/2021 showed stable postoperative findings associated with the previous right parietal occipital craniectomy. Enhancing myelomatous calvarial lesions, the largest in the right parietal calvarium measuring 1.8 cm, also appeared stable. There was no evidence for recurrent or progressed parenchymal disease. However, with evidence of disease progression by PET/CT she was recommended to begin further treatment with carfilzomib/dexamethasone. Her other medical illnesses include hypertension and degenerative arthritis/degenerative disease of the spine. She has associated cervical and lumbar spinal stenosis. She has a history of endometriosis, and she has anxiety/depression. She is a nonsmoker. INTERIM HISTORY: On 07/25/2021 she began cycle 1 of carfilzomib/dexamethasone. The carfilzomib was administered on a standard day 1/2, day 8/9, and day 15/16 schedule to minimize the risk of toxicity. Her baseline echocardiogram showed adequate LV function with estimated ejection fraction at 60%. At day 8 she reported increased shortness of breath. A CT pulmonary angiogram showed no evidence of pulmonary emboli or other acute pathology. She was then able to complete that full cycle of treatment. Restaging PET/CT on 08/16/2021 showed stable left proximal humerus bone mineral tumor involvement. There was improvement in the appearance of the right posterior calvarial lesion with SUV activity consistent with inflammatory changes. There was no evidence for disease progression. She then continued with cycle 2 on 08/21/2021. At cycle 2-day 8 she was reporting fatigue and shortness of breath, but she was able to continue her treatment. Her symptoms, though, continued to worsen, and her treatment was then put on hold. During subsequent follow-up, she was feeling better, and she was able to continue with cycle 3 on 09/16/2021. With that cycle, her carfilzomib was changed to weekly on a 3-week on/1 week off schedule. She tolerated that treatment with acceptable toxicity, and she then continued with cycle 4 on 10/14/2021. Her protein electrophoresis at that point showed M protein decreased to 0.1 g/dL. Her serum free light chain assay showed a free kappa light chain of 15.2 mg/L, free lambda light chain 26.0 mg/L, and normal kappa/lambda ratio 0.58. She was able to complete the full cycle of treatment, and she then began cycle 5 on 11/11/2021. Her cycle 5-day 15 treatment was not administered, apparently due to scheduling issues. She continued with cycle 6 on 12/09/2021. Her M protein remained stable at 0.1 g/dL. Her free lambda light chain was up slightly at 36.2 mg/L with kappa/lambda ratio 0.39. Her repeat head MRI on 12/25/2021 showed stable postoperative changes of right parietal occipital craniectomy with no evidence of recurrent or progressed parenchymal disease. There was stable enhancement about the resection cavity. There was decrease in the size of the largest enhancing myelomatous calvarial lesion measuring 1.3 cm. With those findings, she continued with cycle 7 of carfilzomib/dexamethasone on 01/06/2022. Her M protein at that point was stable at 0.1 g/dL. Her free light chain assay showed slightly elevated free lambda light chain at 38.9 mg/L with free kappa light chain 11.4 mg/L and kappa/lambda ratio 0.29. Her echocardiogram on 01/15/2022 showed normal left ventricular ejection fraction at 60%. She is seen for a follow-up visit. She says she has been feeling okay, but more tired. She has been sleeping more, up to 16 hours in a day. She is still doing light work at home. ECOG score is 1. She does not have good appetite, but that is chronic. She does not have fever or night sweats. She has not had sore mouth or throat. She does not complain of cough. She says her breathing is much better now. She has not been having chest pain. She is not having nausea or acid reflux. She still has diarrhea, but it is managed adequately with loperamide. She has urinary frequency with some urgency and incontinence. She still has pain in her right shoulder and arm, but she currently is not having any other joint or bone pain. She is not having headache. She does not complain of dizziness, and she has no focal neurologic symptoms. Medications: Albuterol Sulfate HFA Aerosol, solution Inhalation PRN, Arthritis Pain Reliever 2 Gm/60mL (of 1 %) Gel (jelly) Topical PRN, Aspirin 1 Tablet (of 81 mg) Tablet, chewable Oral daily, B-12 Dots 1 Tablet (of 500 mcg) Tablet Dispersable Oral daily, Claritin 1 Capsule (of 10 mg) Oral daily PRN, Dexamethasone (4 mg) Tablet Oral Take as Directed, Eliquis 1 Tablet (of 5 mg) Oral b.i.d., FLUoxetine HCl 1 Tablet (of 10 mg) Oral daily, FLUoxetine HCl 1 Capsule (of 20 mg) Oral daily, hydrALAZINE HCl (100 mg) Tablet Oral Take as Directed, HYDROcodone-Acetaminophen 1 - 2 Tablet (of 5-325 mg) Oral q 4 to 6 hours PRN, Lasix 1 - 2 Tablet (of 40 mg) Oral PRN, LORazepam 1 Tablet (of 0.5 mg) Oral b.i.d. PRN, Metoprolol Tartrate (25 mg) Tablet Oral Take as Directed, Mupirocin (2 %) Ointment Topical Take as Directed, Probiotic Capsule Oral b.i.d., RA Senna 1 Capsule (of 8.6 mg) Oral daily PRN, Vitamin D3 Super Strength 1 Capsule (of 50 mcg ) Oral b.i.d., Zofran (4 mg) Tablet Oral Take as Directed Allergies: BusPIRone HCl, Codeine and Related, Levaquin, and Morphine Derivatives. Vital Signs: Performed on Feb 03, 2022 09:33 Height - 63.50 in BP - 122/68 mm(hg) Performed on Feb 03, 2022 09:33 Height - 63.50 in Weight - 205 lbs (LOW) BSA - 1.97 sq.m BMI - 35.74 (HIGH) Temperature - 98.1 F (LOW) Pulse - 64 /min Respiration - 18 /min BP - 167/78 mm(hg) (HIGH) O2 Sat - 96 % Pain - 0 Fatigue - 9 Physical Examination: Constitutional - She looks pretty good generally, Eyes - Sclerae nonicteric. Conjunctivae clear, ENMT - No lesions noted in the oral cavity, Hematologic/Lymphatic - No cervical, clavicular, or axillary adenopathy, Respiratory - Lungs sound clear, Cardiovascular - Heart rhythm is regular. There is a II/ systolic murmur. There is no gallop or rub noted, Abdomen - Mildly distended. Liver and spleen are not enlarged. There is no abdominal mass or ascites noted and there is no inguinal adenopathy, Extremities - No edema. There are purpuric lesions on both arms, Neurologic - No focal neurologic deficits noted. Lab/Imaging: Test performed on Feb 03, 2022 09:55 Ua Color Yellow Ua Appearance Clear Ua Glucose Norm Ua Bilirubin Neg Ua Ketones Negative Ua Specific Carmen 1.020 Ua Blood Neg Ua pH 5 Ua Protein Neg Ua Nitrites Negative Ua Leukocyte Esterase Negative Test performed on Feb 03, 2022 08:35 Sodium 142 mmol/L Potassium 3.9 mmol/L Chloride 106 mmol/L CO2 26 mmol/L Anion Gap 13.9 BUN 12 mg/dL Creatinine 0.9 mg/dL Cr Clearance (Est) 84.4100 mL/min Glucose 95 mg/dL Osmolality - Calculated 294 mOsm/kg Calcium 9.5 mg/dL Protein, Total 5.4 g/dL Albumin 3.9 g/dL Globulin 1.5 g/dL Bilirubin, Total 0.4 mg/dL ALT (SGPT) 23 U/L AST (SGOT) 18 U/L Alkaline Phosphatase 68 IU/L WBC 5.0 10 3/uL RBC 3.51 10 6/uL HGB 11.1 g/dL HCT 35.2 % MCV 100.3 fl MCH 31.6 pg MCHC 31.5 g/dL RDW 14.2 % Platelet Count 277 10 3/cmm MPV 11.1 fL Neutrophils 2.78 10 3/uL Lymphocytes 1.4 10 3/uL Monocytes 0.6 10 3/uL Eosinophils 0.2 10 3/uL Basophils 0.1 10 3/uL Neutrophil % 55.1 % Lymphocyte % 27.2 % Monocyte % 12.1 % Eosinophil % 3.2 % Basophils % 2.2 % NRBC % 0 % [place] Free Light Chains 13.3 mg/L Lambda Free Light Chains 37.0 mg/L IgA 24 mg/dL [place]/Lambda Free Ratio 0.36 Problem List: 1. IgG lambda myeloma presenting with plasmacytoma involving the right parietal-occipital extra-axial space. She underwent resection/open biopsy of the extracranial portion of the mass on 07/20/2018. 2. She has persistent open wound at the biopsy site. 3. She has had thromboembolism with pulmonary emboli documented by CT pulmonary angiogram on 09/14/2018. She developed left upper extremity deep vein thrombosis in October 2020 in association with COVID-19 virus infection. She required hospitalization in November 2020 for revascularization of the left innominate vein and manual thrombectomy of the left subclavian vein. 4. Degenerative arthritis and degenerative disease of the spine with associated cervical and lumbar spinal stenosis. 5. Hypertension. 6. Endometriosis. 7. Anxiety/depression. Problems Addressed with this Encounter and Plan: 1. Patient with IgG lambda myeloma presenting with plasmacytoma involving the right parietal-occipital extra-axial space. She underwent resection/open biopsy of the extracranial portion of the mass on 07/20/2018. She then underwent radiation, completed on 09/02/2018 to a total dose of 5000 cGy. She had associated IgG lambda monoclonal protein in the serum and 2% monoclonal plasma cells in the bone marrow, consistent with underlying myeloma. Initially it appeared to otherwise not be symptomatic, and she was followed expectantly following completion of the radiation. By January 2019 she had developed increasing pain in the left hip/buttock area. Her repeat protein electrophoresis studies showed only a slight increase in her M protein, but her repeat PET/CT on 02/03/2019 showed significant progression of lytic bone involvement in the left ilium. There was also possible involvement in the distal right femur. The area of lytic involvement in the calvarium was not metabolically active. Her subsequent myeloma therapies included: 1. Velcade/Revlimid/dexamethasone beginning 02/23/2019. She had multiple toxicities, requiring dose reductions and treatment delays. As of July 2019 she was transitioned to maintenance Revlimid at 5 mg daily. 2. Second line treatment with daratumumab/dexamethasone began 03/21/2020. As of 06/27/2020 pomalidomide was added at a reduced dosage. She tolerated the pomalidomide very poorly due to [employer] side effects. Treatment was then stopped due to evidence of disease progression by PET/CT on 07/12/2020. 3. She began salvage therapy with belantamab mafodotin 08/29/2020. That treatment was interrupted when she was confirmed to have COVID-19 virus infection following the 2nd cycle. It was restarted in December 2020. It was stopped after the 5th cycle, administered on 02/11/2021, due to visual changes. She appeared to have significant response by follow-up PET/CT on 03/15/2021. However, with her persistent visual symptoms, she opted to remain off treatment. During subsequent follow-up she had reported increasing pain in the right shoulder. 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 She was given palliative radiation to the right shoulder, completed on 07/08/2021 to a total dose of 3000 cGy, ministered in 10 fractions. She had some improvement in the pain with the radiation. Despite having evidence of progression of myelomatous bone involvement, her M protein was stable at 0.2 g/dL and her lambda free light chain had increased only slightly, to 32.6 mg/L, with kappa/lambda ratio normal at 0.54. On 07/25/2021 she began further treatment with carfilzomib/dexamethasone with the carfilzomib administered daily for 2 days on a 3-week out of 4 schedule. She was able to complete one full cycle of treatment, though during that time she complained of increasing fatigue and shortness of breath. She was evaluated with CT pulmonary angiogram, which showed no evidence of pulmonary emboli or other acute pathology. 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 There was no evidence of disease progression. She continued with cycle 2 on 08/21/2021. Echocardiogram at that point showed normal left ventricular function with estimated ejection fraction at 60%. Her treatment was put on hold following the day 8/day 9 carfilzomib infusions. She was able to restart treatment with cycle 3 on 09/16/2021 with the carfilzomib administered weekly on a 3-week on/1 week off schedule. She tolerated it well, and she then continued with cycle 4 on 10/14/2021, with cycle 5 on 11/11/2021, with cycle 6 on 12/09/2021, and with cycle 7 on 01/06/2022 At that point her M protein was stable at 0.1 g/dL and her free lambda light chain and her kappa/lambda ratioa also remained stable. At this point she is having some increased fatigue/somnolence. She continues to have some diarrhea, but that is chronic. Her blood counts remain adequate and her overall clinical status appears stable. She will continue now with cycle 8 of carfilzomib/dexamethasone. The dosage and schedule will remain the same. She will have a follow-up visit in 2 weeks. She will be moving to [place] next month, and she will begin her 9th cycle there. 2. 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 3. In October 2020 she developed left upper extremity deep vein thrombosis in association with COVID-19 virus infection. She remains on anticoagulation with apixaban. Signed By: Ruiz Rodriguez M.D. <<Signature on File>>
== END 2022-02-03 08:15 | disposition home or self-care (01) ==
PROVIDERS: PCP Electrodiagnostic Medicine; Visit Provider Internal Medicine Medical Oncology
DX: Z51.11 Encounter for antineoplastic chemotherapy (principal); C90.00 Multiple myeloma not having achieved remission; C90.30 Solitary plasmacytoma not having achieved remission
CPT/HCPCS: 80053; 81003; 82784; 83883; 84155; 84165; 85025; 96360; 96361; 96413; 99215; J7040; J7050; J9047

== ENCOUNTER 2022-02-10 10:57 | Outpatient (CLI) | payer MEDICARE, SELFPAY ==
[2022-02-10 11:34] LABS: Basophils # 0.1 10^3/uL (0.0-0.1); Eosinophils # 0.3 10^3/uL (0.0-0.8); Eosinophils % 5.6 %; Hematocrit 32.9 % (37.0-47.0); Hemoglobin 10.2 g/dL (11.5-15.3); Lymphocytes # 1.4 10^3/uL (0.8-4.8); Lymphocytes % 31.2 %; Mean Corpuscular Hemoglobin 31.1 pg (28.0-34.0); Mean Corpuscular Volume 100.3 fl (81-99); Mean Platelet Volume 12.4 fL (7.4-10.4); Monocytes # 0.5 10^3/uL (0.2-0.9); Neutrophils # 2.17 10^3/uL (1.8-7.7); Nucleated Red Blood Cells % 0 %; Platelet Count 138 10^3/cmm (130-400); Red Blood Count 3.28 10^6/uL (4.1-5.3); Red Cell Distribution Width 13.5 % (12.1-15.1); White Blood Count 4.4 10^3/uL (4.0-10.0)
[2022-02-10 11:57] LABS: Alanine Aminotransferase 13 U/L (0-33); Albumin Level 3.4 g/dL (3.5-5.2); Alkaline Phosphatase 60 IU/L (35-105); Anion Gap 11.9 (5-19); Aspartate Amino Transferase 16 U/L (0-32); Blood Urea Nitrogen 12 mg/dL (8-23); Calcium 8.5 mg/dL (8.5-10.5); Carbon Dioxide 21 mmol/L (22-29); Chloride 110 mmol/L (98-107); Globulin 1.9 g/dL (1.3-4.6); Glucose 90 mg/dL (65-115); Osmolality Calculated 287 mOsm/kg (285-295); Potassium 3.9 mmol/L (3.5-5.1); Sodium 139 mmol/L (136-145); Total Bilirubin 0.4 mg/dL (0.15-1.2); Total Protein 5.3 g/dL (6.6-8.7)
[2022-02-10] MEDS: sodium chloride 0.9% 500 ML 999 ML IV (13:25)
== END 2022-02-10 10:58 | disposition home or self-care (01) ==
PROVIDERS: PCP Electrodiagnostic Medicine; Visit Provider Internal Medicine Medical Oncology
DX: Z51.11 Encounter for antineoplastic chemotherapy (principal); C90.20 Extramedullary plasmacytoma not having achieved remission; C90.00 Multiple myeloma not having achieved remission; I10 Essential (primary) hypertension; M47.9 Spondylosis, unspecified; F41.9 Anxiety disorder, unspecified; F32.A Depression, unspecified; Z79.899 Other long term (current) drug therapy
CPT/HCPCS: 80053; 85025; 96360; 96413; J7040; J9047

== ENCOUNTER 2022-02-17 11:13 | Outpatient (CLI) | payer MEDICARE, SELFPAY ==
[2022-02-17 11:50] LABS: Basophils # 0.1 10^3/uL (0.0-0.1); Basophils % 1.8 %; Eosinophils # 0.2 10^3/uL (0.0-0.8); Eosinophils % 4.8 %; Hemoglobin 10.2 g/dL (11.5-15.3); Lymphocytes # 1.3 10^3/uL (0.8-4.8); Lymphocytes % 26.6 %; Mean Corpuscular HGB Conc 30.9 g/dL (30.0-36.0); Mean Corpuscular Hemoglobin 30.9 pg (28.0-34.0); Mean Platelet Volume 12.7 fL (7.4-10.4); Monocytes # 0.6 10^3/uL (0.2-0.9); Monocytes % 12.6 %; Nucleated Red Blood Cells % 0 %; Platelet Count 161 10^3/cmm (130-400)
[2022-02-17 12:32] LABS: Alanine Aminotransferase 9 U/L (0-33); Albumin Level 3.4 g/dL (3.5-5.2); Alkaline Phosphatase 59 IU/L (35-105); Aspartate Amino Transferase 14 U/L (0-32); Blood Urea Nitrogen 15 mg/dL (8-23); Calcium 8.9 mg/dL (8.5-10.5); Carbon Dioxide 21 mmol/L (22-29); Chloride 107 mmol/L (98-107); Globulin 1.9 g/dL (1.3-4.6); Glucose 159 mg/dL (65-115); Osmolality Calculated 288 mOsm/kg (285-295); Sodium 137 mmol/L (136-145); Total Bilirubin 0.4 mg/dL (0.15-1.2); Total Protein 5.3 g/dL (6.6-8.7)
--- NOTE | 2022-02-17 13:41 | ONC FU_ITS ---
Maggie Potter Progress Note Patient: Valentin Clark Unit #: [id number]: 1950 Dicatated By: Maggie Potter N.P.Date of Visit:Feb 17, 2022 Onc MED Follow-up/Prog Note Chief Complaint: Mulitple myeloma. 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 In March 2018 she had bumped her head at work and in the process of that she became aware of a small lump, though it was actually in a slightly different area. She then noticed that the lump was getting larger. Evaluation with head MRI on 06/07/2018 showed evidence of a right parietal occipital extra-axial neoplasm, felt to be most likely meningeal in origin. It was noted to exert mass effect on the right parietal and occipital lobes, but without associated midline shift or white matter parenchymal edema. The lesion was noted to invade through the calvarium and into the subcutaneous parietal occipital scalp soft tissues. The mass measured 5.7 x 3.5 x 6 cm. 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 The area of occlusion was noted to extend over approximately 4.3 cm. She was seen by Dr. Landry and subsequently referred for neurosurgery evaluation at [facility]. Initially they had considered possible surgical resection. Her further evaluation there apparently included laboratory findings which were suspicious for myeloma, and it was recommended that she have treatment with radiation. She was seen here for further management on 07/14/2018. She then returned to Dr. Landry, and on 07/20/2018 she underwent open biopsy/resection of the extracranial extent of the mass. 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 Her further evaluation included protein electrophoresis which showed an IgG lambda monoclonal protein in the serum quantitating at 0.48 g/dL. The serum free light chain assay showed elevated lambda light chain at 374.65 mg/L with decreased kappa/lambda ratio at 0.06. The 24-hour urine protein electrophoresis showed no monoclonal protein. There were no other areas of lytic bone involvement noted on her skeletal survey. Bone marrow aspiration/biopsy on 07/30/2018 showed a monotypic plasma cell population, but it comprised only 2% of the total cellularity. A FISH panel for myeloma was unrevealing, and the standard chromosome analysis was normal. She was referred to Dr. Kaur, and she began radiation to the lesion on 07/30/2018. She completed treatment on 09/02/2018 to a total dose of 5,000 cGy. She had evaluation with CT pulmonary angiogram on 09/14/2018. It showed moderate bilateral pulmonary embolic burden. She began on anticoagulation with apixaban. During her subsequent follow-up she continued to have an open wound at the site of the plasmacytoma in the parietal-occipital scalp region. As of her follow-up visit on 10/19/2018 her M protein was stable 0.37 g/dL. In the absence of any evidence of symptomatic myeloma, she had otherwise just continued on observation/expectant management. However, due to her persistent scalp wound she had a repeat brain MRI on 01/11/2019. It showed evidence of residual neoplastic process at the resection site. There was associated dural involvement but with improved signal characteristics and decreased enhancement compared to the study from September 2018. She had further evaluation with PET/CT on 02/03/2019. It showed increase in size and expansile hypermetabolic lesion within the left ilium with extension of hypermetabolic tumor into the adjacent left iliac muscle. There was a new hypermetabolic lytic process within the right S1/S2 region. A large lytic mass within the posterior calvarium did not appear to have active hypermetabolism. Also noted, though, was a hypermetabolic lesion within the medullary canal of the distal left femoral diametaphysis and an additional hypermetabolic focus in the anterior cortex of the distal right femur concerning for additional areas of myeloma. In the setting of obvious progression of her myeloma, she began treatment with VRd on 02/23/2019. At that time she also received an infusion of IV Zometa for the lytic bone involvement. She experienced multiple toxicities with the VRd regimen, requiring dose reductions and treatment delays. Beginning with cycle 4, in June 2019 the Velcade was dropped from the regimen, and the following month her treatment was put on hold due to multiple toxicities, mainly severe fatigue and excessive somnolence. She was found to have a low B12 level, for which she began on B12 replacement therapy. At her follow-up visit on 11/28/2019 she was still mildly anemic, and transferrin saturation was still low at 17% despite being on oral iron replacement. As such, she was then given parenteral iron replacement with infusions of Injectafer on 11/28/2019 and on 12/05/2019. With the 11/28 visit she also was given denosumab 120 mg by subcutaneous injection for the lytic bone involvement. On 12/06/2019 she was admitted to the hospital with symptomatic hypocalcemia, serum calcium 5.9 mg/dL with albumin 2.9 g/dL. Renal function was stable with creatinine 1.0 mg/dL, but her potassium also was low at 3.2 mmol/L. She was given IV calcium and potassium replacement. She then continued further IV replacement as an outpatient. Despite that she was readmitted to the hospital with hypocalcemia on 12/15/2019. She was discharged home on 12/23/2019. Her evaluation included CT pulmonary angiogram which showed no evidence of pulmonary embolism. There was evidence of cardiomegaly, a small pericardial effusion, and small bilateral pleural effusions. Echocardiogram showed small, hemodynamically insignificant pericardial effusion and normal left ventricular function. She then returned here on 12/27/2019 and she then continued IV fluid and electrolyte replacement, daily for the first week and then on Mondays, Wednesdays, and Fridays. Despite that, she continued to feel weak and shaky, and she had ongoing complaints of nausea and anorexia. She continued to require IV fluid and electrolyte replacement but she did show gradual recovery. Her further treatment remained on hold. Repeat protein electrophoresis on 01/16/2020 showed stable M protein at 0.4 g/dL. The serum free light chain assay showed elevated free lambda light chain at 254 mg/L with decreased kappa/lambda ratio at 0.16. There was no monoclonal protein identified in the 24-hour urine protein electrophoresis. Restaging PET/CT on 02/24/2020 showed findings concerning for disease progression with new areas of marrow hypermetabolism within the right proximal humerus and within the bilateral distal femoral diametaphysis. The existing areas of involvement within the left ilium and sacrum showed further decrease in FDG uptake. With those findings, I had recommended that she proceed to second line treatment with daratumumab/dexamethasone. She eventually was able to begin her initial infusion of daratumumab on 03/21/2020. Her repeat free light chain assay prior to that showed further increase in the lambda light chain to 537 mg/L with kappa/lambda ratio 0.06. She tolerated the daratumumab with no adverse effects, and she then continued treatment weekly. On 05/03/2020 she underwent EGD and colonoscopy by Dr. Jimenes. The EGD showed no significant abnormal findings, and the colonoscopy showed just 2 small polyps in the rectum. 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 Her repeat head MRI on 06/05/2020 showed significant progression of the myelomatous lesions within the skull compared to the study from January 2020. Numerous calvarial lesions were noted to be present, the largest in the right parietal bone measuring 2.2 cm. The postoperative resection site in the posterior right parietal lobe showed significantly more enhancement with slightly more dural enhancement, also suspicious for progression of neoplastic changes. With that finding, she had continued the daratumumab and dexamethasone, but beginning on 06/27/2020 I added pomalidomide at a reduced dosage of 2 mg daily on a -day schedule. Her repeat PET/CT on 07/12/2020 showed a large lytic lesion within the posterior right calvarium, but without associated hypermetabolism. There were no new lesions identified within the calvarium. There was persistent hypermetabolism noted within the proximal right humerus, SUV 3.6, and there was new hypermetabolism within the marrow of the proximal left humerus, SUV 3.6. There was decrease in FDG uptake within the medial left ilium. There was persistent hypermetabolism noted in the right femoral diametaphysis and in the distal left femoral diametaphysis. There was new hypermetabolism noted in the proximal left tibia. Overall the findings were concerning for disease progression, and she was recommended to undergo a trial of salvage therapy with belantamab [id number]. On 08/29/2020 she began cycle 1 of belantamab [id number]. She tolerated the initial infusion without acute toxicity. She continued with cycle 2 on 09/19/2020. Her further management was then complicated by COVID-19 virus infection and by left upper extremity deep vein thrombosis for which she underwent revascularization of the left innominate vein and manual thrombectomy of the left subclavian vein. She was then able to continue the belantamab-mafodotin at 3-week intervals. As of 02/11/2021 she had completed her 5th cycle. Her further treatment was then put on hold due to visual symptoms, though her repeat eye exam in February had shown only grade 1 changes. Repeat head MRI on 02/26/2021 showed no evidence of recurrent or progressed disease. There is stable enhancement about the resection cavity in the right parieto-occipital area. Multiple enhancing myelomatous lesions involving the underlying calvarium appeared stable. The largest was in the right parietal calvarium measuring 1.8 cm. 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 There was associated encephalomalacia and gliosis. Restaging PET/CT on 03/15/2021 showed a small focus of increased tracer accumulation in the soft tissues/bone marrow of the right posterior skull with maximum SUV 4.70. That area had not been included on the previous study, so it could not be compared. However, the appearance was consistent with residual myeloma. Also noted was stable mild increased metabolic activity in the left proximal humerus with maximum SUV 3.03. There was no focal increase in the right proximal humerus, noted to have resolved compared to the prior study. Also noted was resolution of previously described metabolic increased activity in the left proximal fibula and in both distal femoral metadiaphyses. Overall the study was noted to be significantly improved. As of her follow-up visit on 05/07/2021 she was showing some decline in performance status. She reported having new pain in her back and she reported increased pain in her right shoulder. MRI of the right shoulder on 05/27/2021 showed an enhancing intramedullary lesion centered in the right humeral head measuring 3.5 x 1.9 cm. A smaller adjacent satellite lesion was noted to extend towards the greater tuberosity. The findings were most consistent with metastatic sites from the myeloma. She was seen by Dr. Bah for palliative radiation. She had had further evaluation with MRI of the left shoulder which showed an intramedullary T2 hyperintense enhancing lesion in the left humeral head measuring 2.6 x 2.1 x 4.1 cm. With those findings, she underwent palliative radiation to the right shoulder. Treatment was completed on 07/08/2021 to a total dose of 3000 cGy administered in 10 fractions. Repeat head MRI on 07/24/2021 showed stable postoperative findings associated with the previous right parietal occipital craniectomy. Enhancing myelomatous calvarial lesions, the largest in the right parietal calvarium measuring 1.8 cm, also appeared stable. There was no evidence for recurrent or progressed parenchymal disease. However, with evidence of disease progression by PET/CT she was recommended to begin further treatment with carfilzomib/dexamethasone. Her other medical illnesses include hypertension and degenerative arthritis/degenerative disease of the spine. She has associated cervical and lumbar spinal stenosis. She has a history of endometriosis, and she has anxiety/depression. She is a nonsmoker. INTERIM HISTORY: On 07/25/2021 she began cycle 1 of carfilzomib/dexamethasone. The carfilzomib was administered on a standard day 1/2, day 8/9, and day 15/16 schedule to minimize the risk of toxicity. Her baseline echocardiogram showed adequate LV function with estimated ejection fraction at 60%. At day 8 she reported increased shortness of breath. A CT pulmonary angiogram showed no evidence of pulmonary emboli or other acute pathology. She was then able to complete that full cycle of treatment. Restaging PET/CT on 08/16/2021 showed stable left proximal humerus bone mineral tumor involvement. There was improvement in the appearance of the right posterior calvarial lesion with SUV activity consistent with inflammatory changes. There was no evidence for disease progression. She then continued with cycle 2 on 08/21/2021. At cycle 2-day 8 she was reporting fatigue and shortness of breath, but she was able to continue her treatment. Her symptoms, though, continued to worsen, and her treatment was then put on hold. During subsequent follow-up, she was feeling better, and she was able to continue with cycle 3 on 09/16/2021. With that cycle, her carfilzomib was changed to weekly on a 3-week on/1 week off schedule. She tolerated that treatment with acceptable toxicity, and she then continued with cycle 4 on 10/14/2021. Her protein electrophoresis at that point showed M protein decreased to 0.1 g/dL. Her serum free light chain assay showed a free kappa light chain of 15.2 mg/L, free lambda light chain 26.0 mg/L, and normal kappa/lambda ratio 0.58. She was able to complete the full cycle of treatment, and she then began cycle 5 on 11/11/2021. Her cycle 5-day 15 treatment was not administered, apparently due to scheduling issues. She continued with cycle 6 on 12/09/2021. Her M protein remained stable at 0.1 g/dL. Her free lambda light chain was up slightly at 36.2 mg/L with kappa/lambda ratio 0.39. Her repeat head MRI on 12/25/2021 showed stable postoperative changes of right parietal occipital craniectomy with no evidence of recurrent or progressed parenchymal disease. There was stable enhancement about the resection cavity. There was decrease in the size of the largest enhancing myelomatous calvarial lesion measuring 1.3 cm. With those findings, she continued with cycle 7 of carfilzomib/dexamethasone on 01/06/2022. Her M protein at that point was stable at 0.1 g/dL. Her free light chain assay showed slightly elevated free lambda light chain at 38.9 mg/L with free kappa light chain 11.4 mg/L and kappa/lambda ratio 0.29. Her echocardiogram on 01/15/2022 showed normal left ventricular ejection fraction at 60%. Patient presents today for follow-up visit. She states she is feeling well. This is her last scheduled visit prior to her moving to [place] where she will establish care with an oncologist there. She continues to have fatigue. Her appetite has been good. She denies fever, chills, night sweats. No sinus drainage or sore throat. No shortness of breath, cough, chest pain. No GI or problems. She is experiencing low back pain that radiates down into her right thigh probably from moving boxes and preparing for relocation. She denies headaches or dizziness. The wound to the back of her scalp is without signs of infection. Review Of Symptoms: See above. Past Medical History: Anxiety/depression Cervical stenosis Degenerative arthritis Degenerative disease of the spine Depression Endometriosis Hypertension Lumbar stenosis DVT LEFT INTERNAL JUGLAR, LEFT SUBCLAVIAN in 2019 COVID 19 + in 2020 Past Surgical History: Bilateral cataract excisions Cholecystectomy/gastric stapling Removal of ovarian cyst x 2 Tonsillectomy Covid vaccine #3 in 2020 FLU vac in 2020 Covid vaccine #2 in 2020 COVID 19 1st in 2020 Angioplasty/stenting of the L innominate vein in 2020 Endovascular revascularization of left upper extremity veins and central veins-[facility] in 2020 Percutaneous mechanical thrombectomy of the L subclavian vein-[facility] in 2020 Left subclavian venous access device???Dr. Soriano[facility] in 2019 Colonoscopy in 2018 Allergies: BusPIRone HCl, Codeine and Related, Levaquin, and Morphine Derivatives. Medications: Albuterol Sulfate HFA Aerosol, solution Inhalation PRN Arthritis Pain Reliever 2 Gm/60mL (of 1 %) Gel (jelly) Topical PRN Aspirin 1 Tablet (of 81 mg) Tablet, chewable Oral daily B-12 Dots 1 Tablet (of 500 mcg) Tablet Dispersable Oral daily Claritin 1 Capsule (of 10 mg) Oral daily PRN Dexamethasone (4 mg) Tablet Oral Take as Directed Eliquis 1 Tablet (of 5 mg) Oral b.i.d. FLUoxetine HCl 1 Tablet (of 10 mg) Oral daily FLUoxetine HCl 1 Capsule (of 20 mg) Oral daily hydrALAZINE HCl (100 mg) Tablet Oral Take as Directed HYDROcodone-Acetaminophen 1 - 2 Tablet (of 5-325 mg) Oral q 4 to 6 hours PRN Lasix 1 - 2 Tablet (of 40 mg) Oral PRN LORazepam 1 Tablet (of 0.5 mg) Oral b.i.d. PRN Metoprolol Tartrate (25 mg) Tablet Oral Take as Directed Mupirocin (2 %) Ointment Topical Take as Directed Probiotic Capsule Oral b.i.d. RA Senna 1 Capsule (of 8.6 mg) Oral daily PRN Vitamin D3 Super Strength 1 Capsule (of 50 mcg ) Oral b.i.d. Zofran (4 mg) Tablet Oral Take as Directed Family History: Ms. Clark's mother at age 84: emphysema, and congestive heart failure. Ms. Clark's father at age 53: heart disease, and myocardial infarction. Ms. Clark has 2 brothers: 1 alive, 1 . Ms. Clark's first brother's colon cancer, and type ii diabetes. Another brother's colon cancer. She has 2 sisters: 2 alive. Ms. Clark's first sister's herat disease, and type ii diabetes. Father of heart attack age 51. Mother with emphysema at age 78. She also had heart disease and diabetes. A sister has diabetes and heart disease. A brother has diabetes and he has been treated for colon cancer. A maternal uncle also had colon cancer, and a maternal aunt had breast cancer. 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 Ms. Clark has never smoked. She drinks occasionally. She is a nonsmoker. She has had just rare alcohol use. Physical Examination: Performed on Feb 17, 2022 13:13: Height - 63.50 in, Weight - 206.4 lbs (HIGH), BSA - 1.97 sq.m, BMI - 35.99 (HIGH), Temperature - 98.1 F (LOW), Pulse - 67 /min, Respiration - 20 /min, BP - 102/70 mm(hg), O2 Sat - 97 %, Pain - 0, and Fatigue - 8. Performance Status: 1 - No physically strenuous activity, but ambulatory and able to carry out light or sedentary work (e.g. office work, light house work). (ECOG) Constitutional Alert, cooperative, oriented. Mood and affect appropriate. Appears close to chronological age. Well nourished. Well developed. Respiratory Lungs are clear to auscultation without rhonchi or wheezing. Cardiovascular Regular rate and rhythm of heart without murmurs, gallops or rubs. Abdomen Non-tender, non-distended, no masses, ascites or hepatosplenomegaly. Good bowel sounds. No guarding or rebound tenderness. Extremities trace edema RLE Musculoskeletal No tenderness or swelling, normal range of motion without obvious weakness. Laboratory: Test performed on Feb 17, 2022 11:25 Sodium 137 mmol/L Potassium 4.0 mmol/L Chloride 107 mmol/L CO2 21 mmol/L Anion Gap 13.0 BUN 15 mg/dL Creatinine 1.0 mg/dL Cr Clearance (Est) 75.9700 mL/min Glucose 159 mg/dL Osmolality - Calculated 288 mOsm/kg Calcium 8.9 mg/dL Protein, Total 5.3 g/dL Albumin 3.4 g/dL Globulin 1.9 g/dL Bilirubin, Total 0.4 mg/dL ALT (SGPT) 9 U/L AST (SGOT) 14 U/L Alkaline Phosphatase 59 IU/L WBC 5.0 10 3/uL RBC 3.30 10 6/uL HGB 10.2 g/dL HCT 33.0 % MCV 100.0 fl MCH 30.9 pg MCHC 30.9 g/dL RDW 14.0 % Platelet Count 161 10 3/cmm MPV 12.7 fL Neutrophils 2.70 10 3/uL Lymphocytes 1.3 10 3/uL Monocytes 0.6 10 3/uL Eosinophils 0.2 10 3/uL Basophils 0.1 10 3/uL Neutrophil % 54.0 % Lymphocyte % 26.6 % Monocyte % 12.6 % Eosinophil % 4.8 % Basophils % 1.8 % NRBC % 0 % Test performed on Feb 03, 2022 09:55 Ua Color Yellow Ua Appearance Clear Ua Glucose Norm Ua Bilirubin Neg Ua Ketones Negative Ua Specific [place] 1.020 Ua Blood Neg Ua pH 5 Ua Protein Neg Ua Nitrites Negative Ua Leukocyte Esterase Negative Test performed on Feb 03, 2022 08:35 Jaars Free Light Chains 13.3 mg/L Lambda Free Light Chains 37.0 mg/L IgA 24 mg/dL Jaars/Lambda Free Ratio 0.36 Test performed on Jan 17, 2022 12:10 eGFR 54.8 mL/min Test performed on Oct 14, 2021 11:15 Ua Micro: WBC 5-10 /hpf Ua Micro: RBC NONE /hpf Ua Micro: Squam Epith Cells 5-10 /hpf Ua Micro: Bacteria TRACE /hpf Ua Micro: Other Crystals TALC /hpf Test performed on Oct 14, 2021 09:27 Ferritin 135 ng/mL Iron 109 mcg/dL Iron Binding Capacity (TIBC) 280 mcg/dl % Iron Saturation 38.9 % UIBC 171 mcg/dL Impression: 1. IgG lambda myeloma presenting with plasmacytoma involving the right parietal-occipital extra-axial space. She underwent resection/open biopsy of the extracranial portion of the mass on 07/20/2018. 2. She has persistent open wound at the biopsy site. 3. She has had thromboembolism with pulmonary emboli documented by CT pulmonary angiogram on 09/14/2018. She developed left upper extremity deep vein thrombosis in October 2020 in association with COVID-19 virus infection. She required hospitalization in November 2020 for revascularization of the left innominate vein and manual thrombectomy of the left subclavian vein. 4. Degenerative arthritis and degenerative disease of the spine with associated cervical and lumbar spinal stenosis. 5. Hypertension. 6. Endometriosis. 7. Anxiety/depression. Plan: 1. Patient with IgG lambda myeloma presenting with plasmacytoma involving the right parietal-occipital extra-axial space. She underwent resection/open biopsy of the extracranial portion of the mass on 07/20/2018. She then underwent radiation, completed on 09/02/2018 to a total dose of 5000 cGy. She had associated IgG lambda monoclonal protein in the serum and 2% monoclonal plasma cells in the bone marrow, consistent with underlying myeloma. Initially it appeared to otherwise not be symptomatic, and she was followed expectantly following completion of the radiation. By January 2019 she had developed increasing pain in the left hip/buttock area. Her repeat protein electrophoresis studies showed only a slight increase in her M protein, but her repeat PET/CT on 02/03/2019 showed significant progression of lytic bone involvement in the left ilium. There was also possible involvement in the distal right femur. The area of lytic involvement in the calvarium was not metabolically active. Her subsequent myeloma therapies included: 1. Velcade/Revlimid/dexamethasone beginning 02/23/2019. She had multiple toxicities, requiring dose reductions and treatment delays. As of July 2019 she was transitioned to maintenance Revlimid at 5 mg daily. 2. Second line treatment with daratumumab/dexamethasone began 03/21/2020. As of 06/27/2020 pomalidomide was added at a reduced dosage. She tolerated the pomalidomide very poorly due to FIRST ASSISTANT side effects. Treatment was then stopped due to evidence of disease progression by PET/CT on 07/12/2020. 3. She began salvage therapy with belantamab mafodotin 08/29/2020. That treatment was interrupted when she was confirmed to have COVID-19 virus infection following the 2nd cycle. It was restarted in December 2020. It was stopped after the 5th cycle, administered on 02/11/2021, due to visual changes. She appeared to have significant response by follow-up PET/CT on 03/15/2021. However, with her persistent visual symptoms, she opted to remain off treatment. During subsequent follow-up she had reported increasing pain in the right shoulder. 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 She was given palliative radiation to the right shoulder, completed on 07/08/2021 to a total dose of 3000 cGy, ministered in 10 fractions. She had some improvement in the pain with the radiation. Despite having evidence of progression of myelomatous bone involvement, her M protein was stable at 0.2 g/dL and her lambda free light chain had increased only slightly, to 32.6 mg/L, with kappa/lambda ratio normal at 0.54. On 07/25/2021 she began further treatment with carfilzomib/dexamethasone with the carfilzomib administered daily for 2 days on a 3-week out of 4 schedule. She was able to complete one full cycle of treatment, though during that time she complained of increasing fatigue and shortness of breath. She was evaluated with CT pulmonary angiogram, which showed no evidence of pulmonary emboli or other acute pathology. 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 There was no evidence of disease progression. She continued with cycle 2 on 08/21/2021. Echocardiogram at that point showed normal left ventricular function with estimated ejection fraction at 60%. Her treatment was put on hold following the day 8/day 9 carfilzomib infusions. She was able to restart treatment with cycle 3 on 09/16/2021 with the carfilzomib administered weekly on a 3-week on/1 week off schedule. She tolerated it well, and she then continued with cycle 4 on 10/14/2021, with cycle 5 on 11/11/2021, with cycle 6 on 12/09/2021, and with cycle 7 on 01/06/2022 At that point her M protein was stable at 0.1 g/dL and her free lambda light chain and her kappa/lambda ratioa also remained stable. Patient presents today for follow-up. She will receive her cycle 8-day 15 Kyprolis infusion today. She will resume her treatment in [place] with cycle 9 with a 3-week on 1 off schedule. 2. 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 3. In October 2020 she developed left upper extremity deep vein thrombosis in association with COVID-19 virus infection. She remains on anticoagulation with apixaban. Signed By: Maggie Potter N.P. <<Signature on File>>
[2022-02-17] MEDS: sodium chloride 0.9% 500 ML 999 ML IV (13:45)
[2022-02-17] MEDS: acetaminophen 325 mg Tablet 650 MG PO (15:01)
== END 2022-02-17 11:14 | disposition home or self-care (01) ==
PROVIDERS: PCP Electrodiagnostic Medicine; Visit Provider Nurse Practitioner Family
DX: Z51.11 Encounter for antineoplastic chemotherapy (principal); C90.20 Extramedullary plasmacytoma not having achieved remission; C90.00 Multiple myeloma not having achieved remission; I10 Essential (primary) hypertension; M47.9 Spondylosis, unspecified; F41.9 Anxiety disorder, unspecified; F32.A Depression, unspecified; Z79.899 Other long term (current) drug therapy
CPT/HCPCS: 80053; 85025; 96360; 96413; 99215; J7040; J9047

== ENCOUNTER → 2022-02-25 13:14 | Outpatient (BNVA) | payer MEDICARE, SELFPAY | PROVIDERS: PCP Electrodiagnostic Medicine; Visit Provider Emergency Medicine | DX: I48.91 Unspecified atrial fibrillation (principal); I96 Gangrene, not elsewhere classified; L98.492 Non-pressure chronic ulcer of skin of other sites with fat layer exposed; R07.9 Chest pain, unspecified; R06.02 Shortness of breath; I10 Essential (primary) hypertension; K21.9 Gastro-esophageal reflux disease without esophagitis; C90.00 Multiple myeloma not having achieved remission | CPT/HCPCS: 11042; 99214 ==